=== PATIENT | male | born 1960 | race Caucasian/White ===

== ENCOUNTER 2018-05-14 08:28 | Outpatient (REF) | payer OTHER, SELFPAY ==
[2018-05-14 13:52] LABS: Cholesterol 178 mg/dL (50-200); HDL Cholesterol 32 mg/dL (40-60); LDL CHOLESTEROL 126 mg/dL (<100); Triglyceride 121 mg/dL (30-150)
== END 2018-05-14 08:48 ==
LOC: NCHCN 08:28
PROVIDERS: PCP Nurse Practitioner Family; Visit Provider Nurse Practitioner Family
DX: E78.5 Hyperlipidemia, unspecified (principal)
CPT/HCPCS: 80061; 83721

== ENCOUNTER 2018-12-01 11:56 | Outpatient (REF) | payer OTHER, SELFPAY ==
[2018-12-01 13:33] LABS: HGB 15.6 g/dL (13.5-17.5); Mean Corp. HGB Concentration 33.2 g/dL (32.0-36.0); Mean Corpuscular Volume 93.4 fL (80-95); Mean Platelet Volume 10.5 fL (8.0-11.0); Platelet Count 213 x1000/uL (130-400); RBC 5.03 m/cumm (4.50-6.00); RBC Distribution Width 13.1 % (11.8-14.1); White Blood Cell Count 8.25 k/cumm (4.4-10.8)
[2018-12-01 13:42] LABS: Anion Gap 12.6 mmol/L (3-11); BUN 13 mg/dL (7-18); CO2 24.4 mmol/L (21.0-32.0); CREATININE 0.78 mg/dL (0.70-1.30); Calcium 9.1 mg/dL (8.5-10.1); Chloride 105 mmol/L (98-107); Glucose 91 mg/dL (70-100); Potassium 4.3 mmol/L (3.5-5.1); Sodium 142 mmol/L (136-145)
== END 2018-12-01 12:16 ==
LOC: NCHCN 11:56
PROVIDERS: PCP Nurse Practitioner Family; Visit Provider Family Medicine
DX: I10 Essential (primary) hypertension (principal); K62.5 Hemorrhage of anus and rectum
CPT/HCPCS: 80048; 85027

== ENCOUNTER 2019-07-11 16:45 | Outpatient (REF) | payer OTHER, SELFPAY ==
[2019-07-11 17:07] LABS: Calculated LDL 56 mg/dL (<100); Cholesterol 119 mg/dL (<200); Glucose 101 mg/dL (74-106); HDL Cholesterol 40 mg/dL (40-60); Triglyceride 115 mg/dL (<150)
[2019-07-13 10:22] LABS: PSA, Screening 0.4 ng/mL (0.0-3.5)
== END 2019-07-11 17:05 ==
LOC: NCHCN 16:45
PROVIDERS: PCP Nurse Practitioner Family; Visit Provider Family Medicine
DX: Z00.00 Encounter for general adult medical examination without abnormal findings (principal); Z13.1 Encounter for screening for diabetes mellitus; Z13.220 Encounter for screening for lipoid disorders; Z12.5 Encounter for screening for malignant neoplasm of prostate
CPT/HCPCS: 80061; 82947; 84153

== ENCOUNTER 2020-07-13 09:26 | Outpatient (REF) | payer OTHER, SELFPAY ==
--- OUTSIDE RECORDS SUMMARY | 2020-07-13 09:30 | XMS_ITS ---
:1960 Author Care Team Providers Name Role Phone DR. ROSALES BAUMANN Primary Care Provider [phone] DR. ROSALES BAUMANN Referring Provider [phone] ROSALES BAUMANN Primary Care Provider [phone] Allergies Code Code System Name Reaction Severity Status Onset NKDA ? Notes: SEASONAL Medications Name Status Start Date Stop Date ? ? Anusol-HC 2.5 % topical cream with perineal applicator Completed ? 12/07/2018 APPLY A THIN LAYER TO THE AFFECTED AREA(S) BY TOPICAL ROUTE 2-4 TIMESDAILY Aspir-81 mg tablet,delayed release Completed ? 12/07/2018 Take 1 tablet every day by oral route. atorvastatin 20 mg tablet Active ? Not av ailable Take 1 tablet every day by oral route. Fish Oil Active ? Not available ONCE DAILY losartan 25 mg tablet Completed ? 12/07/2018 Take 1 tablet every day by oral route. losartan 50 mg tablet Active ? Not availa ble Take 1 tablet every day by oral route. Metamucil Active ? Not available Take 1 capsule twice a day NyQuil Active ? Not available NIGHTLY ProAir HFA 90 mcg/actuation aerosol inhaler Completed ? 12/07/2018 Inhale 2 puffs every 4 hours by inhalation route as needed. Problems Name Status Onset Date Source ? Tubular Adenoma Active 07/16/2018 ? Hyperlipidemia Active 07/16/2018 ? Alcohol Abuse Active 07/16/2018 ? Obstructive Sleep Apnea Syndrome Active 07/16/2018 ? Hypertensive Disorder Active 07/16/2018 ? Left Inguinal Hernia Active 07/16/2018 ? Diverticular Disease Active 07/16/2018 ? Heart Murmur Active 07/16/2018 ? Cough Active 07/16/2018 ? Lung Mass Active 07/16/2018 ? Transfusion of Blood Product Active 07/16/2018 ? Procedures Date Name Performed by ? ? Appendectomy Information not avai lable ? Wrist Surgery Information not avai lable Notes: left ? Colonoscopy Information not avai lable Notes: right elbow repair from a brake as a child Results Lab Results None recorded. Past Encounters None recorded. Social History Tobacco Smoking Status Former Smoker Notes: 40 days ago 12/07/18 Vaccine List None recorded. Plan of Care Reminders Provider Appointments None ? ? recorded. Lab None ? ? recorded. Referral None ? ? recorded. Procedures None ? ? recorded. Surgeries None ? ? recorded. Imaging None ? ? recorded. Vitals 12/07/2018 03:25PM General Surgery F/U 20 min Height Weight BMI Blood Pressure 171.45 cm 102.74 kg 35 kg/m2 124/50 mm[Hg] 10/28/2018 08:20AM General Surgery F/U 20 min Height Blood Pressure 171.45 cm 142/48 mm[Hg] 09/28/2018 01:25PM General Surgery F/U 20 min Height Blood Pressure 171.45 cm 156/52 mm[Hg] 09/14/2018 02:05PM General Surgery F/U 20 min Height Blood Pressure 171.45 cm 142/48 mm[Hg] 07/19/2018 01:45PM CONSULT Height Weight BMI Blood Pressure 171.45 cm 104.1 kg 35.4 kg/m2 130/50 mm[Hg]
--- OUTSIDE RECORDS SUMMARY | 2020-07-13 09:30 | XMS_ITS ---
:1960 Author Care Team Providers Name Role Phone [facility] OTHER [phone] ULISES SINGH MD ([facility]) Primary Care Provider [phone] Allergies Code Code System Name Reaction Severity Status Onset NKDA ? Medications Name Status Start Date Stop Date ? ? Aspir-81 Completed ? 01/31/2019 1 tablet daily atorvastatin 20 mg tablet Active ? Not av ailable Take 1 tablet every day by oral route. Fish Oil Active ? Not available 1 tab daily losartan 25 mg tablet Completed ? 01/31/2019 Take 0.5 tablets every day by oral route. losartan 50 mg tablet Active ? Not availa ble Take 1 tablet every day by oral route. Metamucil Active ? Not available capsule- BID NyQuil Completed ? 01/31/2019 Problems Name Status Onset Date Source ? Hyperlipidemia Active ? ? Obstructive Sleep Apnea Syndrome Active ? History Hypertensive Disorder Active ? ? Hemorrhoids Active ? ? Sleep Disorder Active ? History Chest Pain Active ? ? History of Alcohol Abuse Active ? ? History of Smoking Active ? ? Procedures None recorded. Results Lab Results None recorded. Past Encounters 02/20/2020 Obstructive Sleep Apnea Syndrome Laurie Hurley POSTAL SUPERVISOR: [address], [place] [address], Ph. 01/31/2019 Obstructive Sleep Apnea Syndrome Laurie Hurley POSTAL SUPERVISOR: [address] [place] [address], Ph. Social History Tobacco Smoking Status Current Every Day Smoker Notes: mi d 20's, 12 ppd Vaccine List None recorded. Plan of Care Reminders Provider Appointments None ? ? recorded. Lab None ? ? recorded. Referral None ? ? recorded. Procedures None ? ? recorded. Surgeries None ? ? recorded. Imaging None ? ? recorded. Vitals 02/20/2020 11:00AM Office 30 Height Weight BMI Blood Pressure 170.18 cm 99.84 kg 34.5 kg/m2 146/65 mm[Hg] 01/31/2019 03:30PM Office 30 Height Weight BMI Blood Pressure 170.18 cm 100.24 kg 34.6 kg/m2 156/58 mm[Hg] 11/30/2017 11:15AM Office 15 Height Weight BMI Blood Pressure 170.18 cm 101.6 kg 35.1 kg/m2 141/62 mm[Hg] 11/13/2016 Height Weight Blood Pressure 170.18 cm 102.74 kg 124/60 mm[Hg] 10/16/2016 Height Weight Blood Pressure 170.18 cm 104.89 kg 122/66 mm[Hg] 10/11/2015 Height Weight Blood Pressure 170.18 cm 103.62 kg 125/70 mm[Hg] 07/31/2015 Height Weight Blood Pressure 170.18 cm 102.09 kg 129/71 mm[Hg] 06/20/2015 Height Weight Blood Pressure 170.18 cm 93.19 kg 122/76 mm[Hg]
[2020-07-13 16:07] LABS: Anion Gap 11.4 mmol/L (3-11); BUN 12 mg/dL (7-18); CO2 26.6 mmol/L (21.0-32.0); CREATININE 0.9 mg/dL (0.70-1.30); Calcium 9.3 mg/dL (8.5-10.1); Chloride 106 mmol/L (98-107); Glucose 103 mg/dL (74-106); Potassium 4.6 mmol/L (3.5-5.1); Sodium 144 mmol/L (136-145)
[2020-07-13 22:35] LABS: PSA, Screening 0.4 ng/mL (0.0-3.5)
== END 2020-07-13 09:27 | disposition home or self-care (01) ==
LOC: NCHCN 09:26
PROVIDERS: PCP Family Medicine; Visit Provider Family Medicine
DX: Z00.00 Encounter for general adult medical examination without abnormal findings (principal); I10 Essential (primary) hypertension; Z12.5 Encounter for screening for malignant neoplasm of prostate
CPT/HCPCS: 80048; 84153

== ENCOUNTER 2020-10-01 16:20 | Observation (INO) | payer OTHER, SELFPAY ==
[2020-10-01] VITALS (73 sets, daily range): BP systolic 124–163; BP diastolic 25–95; PULSE 41–75; RESP 12–22; TEMP 36.2–36.7; O2SAT 75–98
--- NOTE | 2020-10-01 16:15 | RT.EKG_ITS ---
APPROVED REPORT Exam: Resting ECG Reason for Exam: DIZZINESS Patient Location: E HR:49 bpm ECG Measurements Heart Rate 49 AXIS IL 204 P 113 QRSd 123 QRS 9 QT 466 T 159 QTc 423 Conclusion Sinus bradycardia...rate< 60 LVH with secondary repolarization abnormality...multi-LVH criteria, abnrm ST-T
--- NOTE | 2020-10-01 16:30 | DI.CT_ITS ---
Exam(s) CT HEAD WO EXAM: CT HEAD WO CLINICAL HISTORY: dizzy, nauseated. TECHNIQUE: Imaging Protocol: Axial computed tomography images with coronal and sagittal reformatted images were created and reviewed COMPARISON: No exams were available for comparison FINDINGS: Ventricles and Extra axial spaces: Normal in size and morphology for the patient's age. Hemorrhage: None. Cerebral parenchyma: Normal. Midline shift: None. Brainstem/Cerebellum: Normal. Calvarium: Normal. Visualized Paranasal sinuses: Minimal ethmoid mucosal thickening. /Mastoids: Clear. Soft Tissues: Unremarkable. IMPRESSION: No acute intracranial process. RADIATION DOSE DELIVERED: 841.66mGy.cm Total DLP DATA REPOSITORY: All CT scans at this facility are submitted to the National Radiology Data Registry (NRDR) Dose Index Registry (DIR) with the [employer] (ACR). RADIATION OPTIMIZATION: All CT scans at this facility use at least one of these dose optimization te chniques: automated exposure control; mA and/or kV adjustment per patient size (includes targeted exa ms where dose is matched to clinical indication); or iterative reconstruction.
--- NOTE | 2020-10-01 16:30 | DI.RAD_ITS ---
Exam(s) XR CHEST 2V PA LATERAL EXAM: XR CHEST 2V PA LATERAL CLINICAL HISTORY: nausea, dizzy TECHNIQUE: 2D digital imaging was performed. COMPARISON: No exams were available for comparison FINDINGS: The heart is moderately enlarged. The aorta is tortuous. The lungs are clear. No pneumothorax. IMPRESSION: Cardiomegaly. No acute pulmonary findings. DATA REPOSITORY: RADIATION DOSE DELIVERED:
--- NOTE | 2020-10-01 16:46 | ED.GENADUL_ITS ---
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 He abruptly became diaphoretic and nauseated with sensation of lightheadedness as if he was going to pass out. She knew worse as he tried to walk after descending ladder. He did not have syncope or vomiting. He rested w ith some mild improvement. Denies vertiginous symptoms and does not have a headache. Patient arrives with a pulse of 49, pressure 141/58, otherwise unremarkable vital signs. He has decreased standing systolic ejection murmur. His EKG reveals a sinus bradycardia with a heart rate of 49 and nonspecific T wave inversions in leads I, aVL, lateral. Differential diagnosis includes myocardial ischemia, dysrhythmia, and must exclude more unusual diagnoses such as Lyme carditis. Labs reassuring with a normal troponin and D-dimer adjusted for age that is within normal limits. CK is 221. Chest x-ray reviewed with no acute pulmonary disease. CT head unremarkable. Patient observed on reel operator and repeat troponin obtained and negative. Given the patient's near syncope and noted bradycardia in the 40s, I will offer admission for further observation. Lab Data Lab results reviewed: Yes I reviewed the patient's lab results. Labs: Laboratory Results - last 24 hr 10/01/20 10/01/20 10/01/20 16:30 16:30 16:44 WBC 11.63 H RBC 5.11 Hgb 15.8 Hct 46.5 MCV 91.0 MCH 30.9 MCHC 34.0 RDW 11.9 Plt Count 222 MPV 9.6 Immature Gran % 0.3 Neutrophils % 50.0 Lymphocytes % 38.3 Monocytes % 7.8 Eosinophils % 2.8 Basophils % 0.8 Nucleated RBC % 0 Absolute Neutrophils 5.82 Absolute Lymphocytes 4.45 H Absolute Monocytes 0.91 H Absolute Eosinophils 0.33 Absolute Basophils 0.09 D-Dimer 545 H Sodium 144 Potassium 3.5 Chloride 107 Carbon Dioxide 27.9 Anion Gap 9.1 BUN 13 Creatinine 0.8 Estimated GFR/1.73 m2 >= 60.00 Glucose 108 H Calcium 8.7 Magnesium 1.9 Total Bilirubin 0.5 AST 20 ALT 27 Alkaline Phosphatase 77 Creatine Kinase 221 Troponin I < 0.05 Total Protein 7.6 Albumin 3.8 HPI General Mode of arrival: ambulatory . Date/Time Provider Initiated Documentation: 10/01/20 16:22 . Limitations to Documentation: no limitations . Information obtained by: patient . History of Present Illness 60 year old M presents to the emergency department with the chief complaint of Dizziness and nausea, described as moderate, Quality is described as dull and constant, Patient reports no radiation. Patient started experiencing this minute(s) and it has been constant. No relieving factors improve symptom(s), No exacerbating factors reported . Patient notes loss of appetite and weakness; denies chest pain, headaches, shortness of breath and syncope. Patient did receive the following treatments prior to arrival, none Related Data Home Medications Medication Instructions Recorded Confirmed albuterol sulfate [Proair Hfa] 2 puff INHALATION Q4H PRN inhaler 05/23/15 05/28/15 omega-3 fatty acids [Fish Oil] 500 mg PO DAILY 05/23/15 10/01/20 atorvastatin 20 mg PO DAILY 10/01/20 10/01/20 losartan 50 mg PO DAILY 10/01/20 10/01/20 Allergies Allergy/AdvReac Type Severity Reaction Status Date / Time No Known Allergies Allergy Unverified 10/01/20 16:34 General Stated Complaint: Dizzy/Sync ISHA: 2 Review of Systems Narrative: 6 systems reviewed and otherwise negative. No syncope, no vertiginous symptoms. Denies chest pain or shortness of breath. Takes losartan and a statin. No beta blockade or calcium channel kadi. Denies recent illness. [facility] Social History Smoking/Tobacco Use Status: Current every day Smoking risk assessment performed?: Yes Alcohol Intake: current Alcohol Intake frequency: a few times a week Drug use: Never Substance use type: does not use Do you feel safe at home: Yes Do you feel safe in your relationship?: Yes Exam Narrative Exam Narrative: GEN: awake, alert, oriented 3. Pleasant, well groomed, interactive. HEAD: Normocephalic, atraumatic ENT: Mucous membranes moist, oropharynx unremarkable, External ear exam unremarkable EYES: PERRL, EOMI NECK: Full ROM, no ANITA, no menigismus CHEST/RESP: Nontender, clear to auscultation bilateral, no wheeze/rhonchi/rales CARDIOVASCULAR: Regular and bradycardic, 2 out of 6 to 3 out of 6 systolic ejection murmur, no kathy. 2+ Rad pulse bilateral ABDOMEN: Soft, nontender, no mass. +Bowel sounds EXT: Full ROM, no edema, no rash Neuro: Grossly normal neurologic exam, conversant, interactive. Cranial nerves II through XII intact. Psych: Speech fluent, thoughts congruent, affect normal Course Vital Signs Vital signs: Vital Signs Temperature 36.7 C 10/01/20 16:30 Pulse 49 L 10/01/20 16:30 Respiratory Rate 18 10/01/20 16:30 Blood Pressure 141/58 H 10/01/20 16:30 Pulse Oximetry 93 10/01/20 16:30 Temperature 36.7 C 10/01/20 16:30 Temperature Source Temporal Artery Scan 10/01/20 16:30 Pulse 49 L 10/01/20 16:43 Respiratory Rate 18 10/01/20 16:30 Respiratory Effort 10/01/20 16:38 Blood Pressure 141/58 H 10/01/20 16:43 Blood Pressure Position Supine 10/01/20 16:30 Pulse Oximetry 93 10/01/20 16:30 Oxygen Delivery Method Room Air 10/01/20 16:30 Oxygen Flow Rate 0 10/01/20 16:30 Pain Level 0 10/01/20 16:30
[2020-10-01] MEDS: Ondansetron 4 MG/2 ML VIAL IVP (16:51)
[2020-10-01] MEDS: Normal Saline 1,000 ML 1000 ML IV (16:51)
[2020-10-01 16:53] LABS: Abs Immature Grans 0.03 10^3/uL (0.0-0.06); Absolute Basophil Count 0.09 10^3/uL (0.0-0.2); Absolute Eosinophil Count 0.33 10^3/uL (0.0-0.7); Absolute Lymphocyte Count 4.45 10^3/uL (1.2-3.4); Absolute Monocyte Count 0.91 10^3/uL (0.1-0.8); Absolute Neutrophil Count 5.82 10^3/uL (1.2-6.7); Basophils % 0.8; Eosinophils % 2.8; HCT 46.5 % (40.0-50.0); HGB 15.8 g/dL (13.5-17.5); Immature Grans % 0.3; Lymphocytes % 38.3; MCH 30.9 pg (27.0-33.0); MPV 9.6 fL (8.0-11.0); Monocytes % 7.8; Nucleated RBC 0 %; Platelet Count 222 10^3/uL (130-400); RBC 5.11 10^6/uL (4.36-5.78); RDW 11.9 % (11.8-14.1); RDW-SD 39.9 fL; WBC 11.63 10^3/uL (4.4-10.8)
[2020-10-01 17:08] LABS: ALT 27 U/L (16-63); AST 20 U/L (15-37); Albumin 3.8 g/dL (3.4-5.0); Alkaline Phosphatase 77 U/L (46-116); Anion Gap 9.1 mmol/L (3-11); BUN 13 mg/dL (7-18); Bilirubin, Total 0.5 mg/dL (0.2-1.0); CO2 27.9 mmol/L (21.0-32.0); CREATININE 0.8 mg/dL (0.70-1.30); Calcium 8.7 mg/dL (8.5-10.1); Chloride 107 mmol/L (98-107); Creatine Kinase 221 U/L (39-308); Glucose 108 mg/dL (74-106); Magnesium 1.9 mg/dL (1.8-2.4); Potassium 3.5 mmol/L (3.5-5.1); Sodium 144 mmol/L (136-145); Total Protein 7.6 g/dL (6.4-8.2); Troponin I < 0.05 ng/mL (<0.06)
--- NOTE | 2020-10-01 17:48 | DI.VRAD_ITS ---
PROCEDURE INFORMATION: Exam: CT Head Without Contrast Exam date and time: 10/01/2020 5:20 PM Age: 60 years old Clinical indication: Dizziness; Patient HX: Dizzy, nauseated; Dizzy at work near fainting TECHNIQUE: Imaging protocol: Computed tomography of the head without contrast. COMPARISON: No relevant prior studies available. FINDINGS: Brain: No intracranial hemorrhage. No mass or midline shift. No extra-axial collections. Normal rivas-white differentiation. No large acute territorial infarct. No cerebral edema. Cerebral ventricles: The ventricles are normal in position. No hydrocephalus. Bones/joints: No acute fracture. No focal osseous lesions. Paranasal sinuses: Scant mucosal thickening in the ethmoid sinuses. No air-fluid levels. Mastoid air cells: The tympanomastoid air cells are normally aerated as visualized. Orbital cavity: The orbits are unremarkable as visualized. Vasculature: Intracranial arterial calcification is present. Soft tissues: The soft tissues are unremarkable. IMPRESSION: 1. No acute intracranial findings. 2. Additional incidental/nonemergent findings as discussed above. Dictated and Authenticated by: Shanice Roa MD. Ordering:CINDY Mak MD
[2020-10-01 18:06] LABS: D-Dimer 545 ng/mlFEU (<500)
--- NOTE | 2020-10-01 18:13 | DI.VRAD_ITS ---
PROCEDURE INFORMATION: Exam: XR Chest Exam date and time: 10/01/2020 4:46 PM Age: 60 years old Clinical indication: Other: Nausea, dizzy TECHNIQUE: Imaging protocol: XR of the chest. Views: 2 views. COMPARISON: CT CHEST FOR PULMONARY EMBOLUS 05/17/2015 8:15 AM FINDINGS: Lungs: There are no pulmonary infiltrates or lung nodules. Pleural spaces: There is no evidence of pleural effusion or pneumothorax. Heart/Mediastinum: [id number] cardiomegaly. Vasculature: Tortuous calcified thoracic aorta. Bones/joints: No acute osseous findings. IMPRESSION: Cardiomegaly. No acute pulmonary disease. Resolution RIGHT pleural effusion and bilateral lower lobe parenchymal consolidation. Dictated and Authenticated by: Shanice Roa MD. Ordering:CINDY Mak MD
[2020-10-01 18:55] LABS: Source Nasal/Nares
[2020-10-01] MEDS: Aspirin 325 MG TAB PO (19:53)
[2020-10-01 20:08] LABS: Troponin I 0.05 ng/mL (<0.06)
--- NOTE | 2020-10-01 20:33 | NUR.NOTE ---
Nursing Note: Finger foods provided with MD permission.
[2020-10-01 21:03] LABS: COVID-19 PCR Negative (Negative)
--- NOTE | 2020-10-01 22:02 | W.PM.HP.N ---
Date of service: 10/01/20 Time of Service: 22:03 Assessment and Plan Assessment and plan (1) Near syncope: Status: Acute (2) Bradycardia: Status: Acute Assessment and plan: He will be placed on cardiac monitoring through the night. I have asked for a cardiology consult but not sure if cardiology will be here tomorrow. (3) Abnormal ECG: Status: Acute Assessment and plan: His electrocardiogram shows nonspecific ST-T wave changes which are new since 2008. This electrocardiogram should be repeated tomorrow morning. (4) Heart murmur: Status: Acute Assessment and plan: His heart murmur is quite prominent. Is difficult to say if this murmur is louder than it was a few years ago when he had his last echocardiogram. It may be worth considering repeating this echocardiogram in light of his bradycardia and the abnormal electrocardiogram. History of Present Illness History of Present Illness Chief Complaint: dizziness Narrative: This 60-year-old male came to the emergency department because of dizziness. He was at work earlier today and was on top of a ladder. 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 When he got to the bottom of the ladder he felt quite lightheaded with some nausea. There was no vertigo. He says he felt like he was staggering and thought he might pass out or fall. There was no vertigo. He has had no symptoms like this in the past. His symptoms lasted for about 30 minutes and he came here. He still had the symptoms when he got here but currently feels fine. He has had a history of a heart murmur since he was young and had an echocardiogram a few years ago. This showed mitral regurgitation and dilated left ventricle but no other abnormalities. He has not had any known recent tick bites however yesterday his did pull 1 off of him but it was not embedded. He had electrocardiogram in 2008 and today's electrocardiogram looks a bit different. He has not had any chest pain or recent signs of illness. He has had some headache today but he thinks this is because he has not eaten much. Review of Systems Constitutional Constitutional: Denies body ache(s), Denies chills, Denies fever(s) and Reports headache(s) Eyes Eyes: Denies diplopia ENT Ears, Nose, Mouth, and Throat: Denies vertigo, Reports dizziness and Reports headache(s) Cardiovascular Cardiovascular: Denies chest pain, Denies irregular heart rhythm, Denies leg edema, Denies dyspnea and Reports slow heart rate Respiratory Respiratory: Denies cough and Denies dyspnea Gastrointestinal Gastrointestinal: Denies abdominal pain, Denies change in stool character, Reports nausea and Denies vomiting Genitourinary Genitourinary: Denies difficulty urinating and Denies urinary urgency Musculoskeletal Musculoskeletal: Denies arthralgias and Denies tingling Neurologic Neurologic: Denies vertigo, Reports dizziness, Reports headache(s), Denies lack of coordination and Denies tingling PFSH Social History Smoking/Tobacco Use Status: Current every day Smoking risk assessment performed?: Yes Alcohol Intake: current Alcohol Intake frequency: a few times a week Drug use: Never Substance use type: does not use Do you feel safe at home: Yes Do you feel safe in your relationship?: Yes Meds Allergies and Home Medications Allergies Allergy/AdvReac Type Severity Reaction Status Date / Time No Known Allergies Allergy Unverified 10/01/20 16:34 Home Medications Medication Instructions Recorded Confirmed Type albuterol sulfate [Proair Hfa] 2 puff INHALATION Q4H PRN inhaler 05/23/15 05/28/15 History omega-3 fatty acids [Fish Oil] 500 mg PO DAILY 05/23/15 10/01/20 History atorvastatin 20 mg PO DAILY 10/01/20 10/01/20 History losartan 50 mg PO DAILY 10/01/20 10/01/20 History Exam Const General: cooperative, healthy appearing, comfortable, no acute distress, well developed and not ill appearing Nutritional Appearance: overweight Orientation: alert, awake and oriented x3 HENMT Head: normal to inspection and atraumatic Ears: hearing grossly normal bilaterally Mouth: oral mucosae normal and tongue normal Eyes General: appearance normal, both eyes and all related structures Eyelids: eyelids normal Sclera: sclerae normal EOM: EOM intact bilaterally Neck Neck: normal visual inspection, no lymphadenopathy and nontender Resp Effort & Inspection: normal respiratory effort Auscultation: clear to auscultation bilaterally, no rales, no rhonchi and no wheezes Cardio Jugular venous pressure: no JVD Rate: bradycardic Rhythm: regular rhythm Heart Sounds: S1 normal, S2 normal and murmur (3/6 holosystolic murmur, quite prominent at the right upper sternal border.) systolic GI Inspection: normal to inspection and non-distended Palpation: no hepatosplenomegaly and nontender Skin General skin exam: no rashes or lesions noted Neuro General: patient alert, patient awake, patient oriented x3 and no focal motor deficits Speech: speech normal Extrem Right lower extremity: no edema Left lower extremity: no edema Results Labs Result diagrams: 10/01/20 16:30 10/01/20 16:44 Labs: Laboratory Results - last 24 hr 10/01/20 10/01/20 10/01/20 16:30 16:30 16:44 WBC 11.63 H RBC 5.11 Hgb 15.8 Hct 46.5 MCV 91.0 MCH 30.9 MCHC 34.0 RDW 11.9 Plt Count 222 MPV 9.6 Immature Gran % 0.3 Neutrophils % 50.0 Lymphocytes % 38.3 Monocytes % 7.8 Eosinophils % 2.8 Basophils % 0.8 Nucleated RBC % 0 Absolute Neutrophils 5.82 Absolute Lymphocytes 4.45 H Absolute Monocytes 0.91 H Absolute Eosinophils 0.33 Absolute Basophils 0.09 D-Dimer 545 H Sodium 144 Potassium 3.5 Chloride 107 Carbon Dioxide 27.9 Anion Gap 9.1 BUN 13 Creatinine 0.8 Estimated GFR/1.73 m2 >= 60.00 Glucose 108 H Calcium 8.7 Magnesium 1.9 Total Bilirubin 0.5 AST 20 ALT 27 Alkaline Phosphatase 77 Creatine Kinase 221 Troponin I < 0.05 Total Protein 7.6 Albumin 3.8 COVID-19 Source SARS-CoV-2 (PCR) 10/01/20 10/01/20 18:50 19:45 WBC RBC Hgb Hct MCV MCH MCHC RDW Plt Count MPV Immature Gran % Neutrophils % Lymphocytes % Monocytes % Eosinophils % Basophils % Nucleated RBC % Absolute Neutrophils Absolute Lymphocytes Absolute Monocytes Absolute Eosinophils Absolute Basophils D-Dimer Sodium Potassium Chloride Carbon Dioxide Anion Gap BUN Creatinine Estimated GFR/1.73 m2 Glucose Calcium Magnesium Total Bilirubin AST ALT Alkaline Phosphatase Creatine Kinase Troponin I 0.05 Total Protein Albumin COVID-19 Source Nasal/nares SARS-CoV-2 (PCR) Negative Last Vital Signs Temp 36.7 C 10/01/20 16:30 Pulse 49 L 10/01/20 20:31 Resp 17 10/01/20 20:31 BP 134/58 L 10/01/20 20:31 Pulse Ox 91 L 10/01/20 20:31 COVID-19 Screening Have you, or household traveled for leisure in last 14 days?: No Had IN PERSON contact w/suspected or confirmed C-19 person: No
--- NOTE | 2020-10-02 | DI.US_ITS ---
APPROVED REPORT EXAM: Comprehensive 2D, Doppler, and color-flow Echocardiogram Patient Location: In-Patient Room/Bed: [facility] Director Of Rehabilitation: Therese Ritter RDCS (AE) Indications: Syncope, Murmur Other Information Study Quality: Good Conclusion Left Ventricle : Left ventricle is moderately dilated. The left ventricular ejection fraction is with in the normal range. Moderate concentric left ventricular hypertrophy. There is normal LV segmental w all motion. The left ventricular diastolic function is normal. LVEF is 59%. Right Ventricle : The right ventricle is normal size. The right ventricular systolic function is norm al. The RVSP is 33.8mmHg. Atria : Left atrium is moderately dilated. The right atrium size is normal. Aortic Valve : Aortic valve is calcified. Number of aortic valve leaflets could not be assessed. Mode rate aortic regurgitation. Moderate aortic stenosis. Peak aortic valve gradient is 47.3mmHg. Highest mean aortic valve gradient is 27.3mmHg. Calculated FINA by the continuity equation is 1.69cm2. Mitral Valve : Mild mitral annular calcification. Mild mitral regurgitation. No evidence of mitral va lve stenosis. Great Vessels : The ascending aorta is dilated (4.7cm). Aortic arch is normal in caliber. Aortic root is dilated (4.3cm). Echocardiogram from 05/17/2015, the patient now has moderate aortic stenosis as well as moderate aortic regurgitation. The ascending aortic measurements are grossly unchanged as is ejection fraction. Pu lmonary artery pressure is now decreased from 53 mmHg to 34 mmHg. Wall motion Left Ventricle Left ventricle is moderately dilated. The left ventricular ejection fraction is within the normal ran ge. Moderate concentric left ventricular hypertrophy. There is normal LV segmental wall motion. The l eft ventricular diastolic function is normal. There is no ventricular septal defect visualized. LVEF is 59%. Right Ventricle The right ventricle is normal size. The right ventricular systolic function is normal. The RVSP is 33 .8mmHg. Atria Left atrium is moderately dilated. The right atrium size is normal. The interatrial septum is intact with no evidence for an atrial septal defect. Aortic Valve Aortic valve is calcified. Number of aortic valve leaflets could not be assessed. Moderate aortic jeremías nosis. Peak aortic valve gradient is 47.3mmHg. Highest mean aortic valve gradient is 27.3mmHg. Calcul ated FINA by the continuity equation is 1.69cm2. Moderate aortic regurgitation. Mitral Valve Mild mitral annular calcification. No evidence of mitral valve stenosis. Mild mitral regurgitation. Tricuspid Valve The tricuspid valve is normal in structure. There is no tricuspid valve stenosis. Trace to mild tricu spid regurgitation. Pulmonic Valve The pulmonary valve is normal in structure. There is no pulmonic valvular stenosis. Trace pulmonic re gurgitation. Great Vessels Aortic root is dilated (4.3cm). The ascending aorta is dilated (4.7cm). Aortic arch is normal in paul ruddy. IVC is normal in size and collapses >50% with inspiration. Pericardium There is no pericardial effusion. 2D Dimensions IVSD d PLAX 1.33 cm M: 0.6-1.2 LV Vol A2C d MOD 215.7 mL LVPW d PLAX 1.30 cm M: 0.6 - 1.2 LV Vol A4C d MOD 302.5 mL LVID d PLAX 7.00 cm M: 4.2 - 5.8 LA vol/ BSA A2C s A-L 43.0 mL/m2 LVDs 4.75 cm M: 2.5 - 4.0 LA vol/ BSA A4C s A-L 35.1 mL/m2 Ao Root d 4.35 cm M: 3.1 - 3.7 LA Vol/ BSA Biplane s A-L 39.2 mL/m2 RA Area A4C 18.52 cm2 LA Area A4C s MOD 23.04 cm2 RA Vol/ BSA A4C s A-L 25.0 mL/m2 LA Area A2C s MOD 25.28 cm2 Ao Asc Diam d 4.74 cm M: 2.6 - 3.4 LV EF A4C MOD 58.2 % LV EF Teichholz 58.3 % LV EF A2C MOD 59.8 % LVEF (Ramirez's) 59.49 % M: 52 - 72 LV EF Biplane MOD 59.5 % LV Volume 193.08 mL M: 62 - 150 SV 155.25 mL LV Volume Index 92.82 mL/m2 M: 34 - 74 SV Index 74.46 mL/m2 LV Vol Biplane MOD 261.0 mL FS 31.70 % M-Mode TAPSE 3.10 cm (M/F) >1.7 LV Diastology MV E' medial 0.076 (>0.07 m/s) E/A Ratio 1.2 LV E/e MED 10.60 (<14) MV E Vmax 0.81 (0.4-1.3 m/s) MV E' lateral 0.072 (>0.1 m/s) MV A Vmax 0.65 (0.4-1.3 m/s) LV E/e LAT 11.15 (<14) MV E/A Ratio 1.18 MV E/E' medial 10.65 MV E/E' lateral 11.19 Aortic Valve LVOT Area 4.83 cm2 AoV Area Vmax 1.69 cm2 LVOT Vmax 1.21 m/s AoV Area/ BSA (Vmax) 0.81 cm2/m2 LVOT Mean Bret. 0.82 m/s FINA Mean Bret. 1.60 cm2 LVOT Peak Grad 5.8 mmHg FINA Mean Bret. Index 0.77 cm2/m2 LVOT Mean Grad 3.2 mmHg AR DT 1573 msec LVOT VTI 0.331 m AR PHT 456 msec LVOT Diam s 2.45 cm AoV Vmax 3.44 m/s Velocity Ratio 0.35 AoV Mean Bret. 2.48 m/s AoV Peak Grad 47.3 mmHg LVOT SV 159.78 mL AoV Mean Grad 27.3 mmHg AoV VTI 0.813 m AoV Area VTI 1.96 cm2 AoV Area/ BSA (VTI) 0.94 cm/m2 Mitral Valve MV DT 254 (160-240 msec) MV PHT 74 msec MV Area PHT 2.99 cm2 MV VTI 0.267 m MV Area VTI 5.98 (4.0-6.0 cm2) Pulmonary Valve PV Vmax 0.95 (0.5-1.5 m/s) RVOT Peak Gr. 2.39 mmHg PV Peak Grad 3.6 mmHg RVOT Mean Gr. 1.15 mmHg PV Mean Grad 1.9 mmHg RVOT VTI 0.167 m PV VTI 0.224 m RVOT Vmax 0.77 m/s Tricuspid Valve TR Peak Grad 30.7 mmHg TR Vmax 2.77 m/s RA Pressure 3.00 mmHg RVSP (TR) 33.8 mmHg
[2020-10-02 01:13] VITALS: BP 126/64; PULSE 41; RESP 18; TEMP 36.7; O2SAT 96
[2020-10-02 03:18] VITALS: BP 150/72; PULSE 43; RESP 17; TEMP 36.7; O2SAT 95
[2020-10-02 07:00] VITALS: PULSE 45
[2020-10-02 07:25] VITALS: BP 135/78; PULSE 52; RESP 16; TEMP 36.7; O2SAT 95
--- NOTE | 2020-10-02 07:45 | RT.EKG_ITS ---
APPROVED REPORT Exam: Resting ECG Reason for Exam: near syncope, EKG changes Patient Location: I HR:46 bpm ECG Measurements Heart Rate 46 AXIS LA 204 P 48 QRSd 119 QRS -6 QT 439 T 234 QTc 385 Conclusion Sinus bradycardia...rate< 60 LVH with secondary repolarization abnormality...multi-LVH criteria, abnrm ST-T
[2020-10-02] MEDS: Omega-3 Fatty Acids 1000 MG CAP PO (07:57)
--- NOTE | 2020-10-02 09:23 | INITIAL_ITS ---
- If Service Date Differs Date of service: 10/02/20 Time of Service: 09:23 Care Management Initial Assess REASON FOR HOSPITALIZATION:: Near syncope PAST MEDICAL HISTORY/PAST SURGICAL HISTORY:: None documented PREVIOUS FUNCTIONAL STATUS/SOCIAL/FAMILY SUPPORTS:: Conner lives in [place], [place] with his Korina. They have 2 adult children who no longer live at home. 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 CURRENT FUNCTIONAL STATUS:: Conner was sitting up in bed when CM met with him. He verbalized wanting to go home and get some rest. He alluded to the fact that sleep is hard to come by in the hospital. Conner stated that he feels fine and does not want or need any services at home. ADVANCE DIRECTIVES:: none on file. Conner would be interested he stated but his does not want to complete ADs. Has patient been provided with info about the portal/API?: Yes Did the patient sign up for the portal?: No CODE STATUS:: Full Code INSURANCE COVERAGE / FINANCIAL ISSUES:: [facility] CURRENT HOME/COMMUNITY SERVICES/EQUIPMENT:: none PRIMARY CARE PHYSICIAN:: Tono Montero POTENTIAL DISCHARGE NEEDS:: Follow up with PCP and plan of care PATIENT/FAMILY EDUCATION NEEDS:: Review of discharge instructions, medications, folllow up plan, limitations and Ask Me Three TRANSPORTATION:: via private vehicle with family PLAN:: Conner will be discharged home with no new services. He will follow up with Cardiology, his PCP and plan of care and transport with family.
[2020-10-02 11:28] VITALS: BP 135/62; PULSE 48; RESP 15; TEMP 37.2; O2SAT 95
--- NOTE | 2020-10-02 13:22 | W.PM.DS.N ---
Date of service: 10/02/20 Time of Service: 13:22 DS: Diagnosis Discharge Diagnosis (1) Near syncope: Status: Acute (2) Bradycardia: Status: Acute (3) Abnormal ECG: Status: Acute (4) Heart murmur: Status: Acute Discharge Plan Disposition Patient Disposition: HOME Condition: Improving Discharge Details Reason For Visit: near syncope,bradycardia Admit Date/Time: 10/01/20 21:36 Admit Provider: Tono Guerra Attending Provider: Tono Guerra Primary Care Provider: Tono Montero [facility] Course: This 60-year-old male came to the emergency department because of dizziness.? He was at work earlier today and was on top of a ladder.? 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 When he got to the bottom of the ladder he felt quite lightheaded with some nausea.? There was no vertigo.? He says he felt like he was staggering and thought he might pass out or fall.? There was no vertigo.? He has had no symptoms like this in the past.? His symptoms lasted for about 30 minutes and he came here.? He still had the symptoms when he got here but currently feels fine.? He has had a history of a heart murmur since he was young and had an echocardiogram a few years ago.? This showed mitral regurgitation and dilated left ventricle but no other abnormalities.? He has not had any known recent tick bites however on the day before this admission his did pull 1 off of him but it was not embedded.? He had electrocardiogram in 2008.? He has not had any chest pain or recent signs of illness.? He has had some headache today but he thinks this is because he has not eaten much. His lab showed a WBC count of 11.63. Electrolytes and creatinine were normal. Glucose 108. His telemetry monitoring showed bradycardia at times into the upper 40's. HR at times into the low 60's. He had no symptoms of lightheadedness, near syncope, palpitations during this stay. His echocardiogram showed an EF of 59%, Mod aortic regurgitation and mod aortic stenosis. Mild mitral regurgitation. Also noted was a dilation of the ascending aorta (4.7cm) and dilated aortic root (4.3cm); the aortic measurements were grossly unchanged from 1/7/16. He will d/c on a cardiac event monitor. His symptoms could questionably have been d/t hypoglycemia. F/U with PCP in 1-2 weeks. He will be scheduled with a cardiology visit. Return to work on Thursday10/08/20. Home Meds and New Rx's Prescriptions: New omega 6-pzv-vnl-fish oil 1,000 mg (120 mg-180 mg) Capsule 1,000 mg PO HS Qty: 0 RF: 0 Continued albuterol sulfate [ProAir HFA] 8.5 GM HFA aerosol inhaler 2 puff Inhalation Q4H PRN RF: 0 Changed losartan 50 mg tablet 50 mg PO HS Qty: 0 RF: 0 atorvastatin 20 mg tablet 20 mg PO HS Qty: 0 RF: 0 Discontinued Fish Oil 500 MG capsule 500 mg PO DAILY RF: 0 Discharge Instructions Instructions: Bradycardia (DC) Activity:: Activity as Tolerated Equipment/Supplies:: No Equipment Needed Diet:: Heart Healthy Discharge Orders Discharge Orders: Discharge Order (Routine); Ordered 10/02/20 Ordered By: John Webb Other Ambulatory Orders: Cardiac Event Recorder (Routine) Timeframe: 1 Month Facility: [facility] - Location: Respiratory Therapy Ordered By: John Webb DS: Summary Time Spent with Patient providing and/or coordinating discharge services: Greater than 30 minutes Status at Discharge Functional status at discharge: independent ambulation Overall status at discharge: patient is back to baseline Mental Status: mental status grossly normal Speech and Movement: speech and movement normal Mood: congruent mood Affect: normal affect Exam Const General: cooperative and no acute distress Nutritional Appearance: obese Orientation: alert and oriented x3 Resp Effort & Inspection: normal respiratory effort Auscultation: clear to auscultation bilaterally Cardio Rate: bradycardic Rhythm: regular rhythm Heart Sounds: murmur Extrem General: no pedal edema and no calf tenderness Psych Appearance: grossly normal Mental Status: mental status grossly normal Speech and Movement: speech and movement normal Mood: congruent mood Affect: normal affect DS: Data Vitals/I&O Vitals and I&O: Vital Signs Temperature 37.2 C 10/02/20 11:28 Temperature Source Temporal Artery Scan 10/02/20 11:28 Pulse 48 L 10/02/20 11:28 Pulse 48 L 10/01/20 23:20 Respiratory Rate 15 10/02/20 11:28 Respiratory Effort Non-Labored 10/02/20 07:50 Respiratory Depth Normal 10/02/20 07:50 Respiratory Pattern Normal 10/02/20 07:50 Blood Pressure 135/62 10/02/20 11:28 Blood Pressure Mean 51 10/01/20 22:16 Blood Pressure Position Supine 10/01/20 16:30 Pulse Oximetry 95 10/02/20 11:28 Oxygen Delivery Method Room Air 10/02/20 11:28 Oxygen Flow Rate 0 10/02/20 11:28 Pain Level 0 10/02/20 11:28 Comment 10/02/20 01:13 Intake & Output 10/01/20 10/02/20 10/02/20 23:59 11:59 23:59 Intake Total 1000 / 1000 120 / 120 Balance 1000 / 1000 120 / 120 Weight 97.749 kg Intake: IV 1000 / 1000 Oral 120 / 120 Other: Urine Appearance Clear Clear Voiding Methods Toilet Data Completed and Pending Labs on day of discharge: Labs from last 24 hours 10/01/20 10/01/20 10/01/20 19:45 18:50 18:00 WBC RBC Hgb Hct MCV MCH MCHC RDW Plt Count MPV Immature Gran % Neutrophils % Lymphocytes % Monocytes % Eosinophils % Basophils % Nucleated RBC % Absolute Neutrophils Absolute Lymphocytes Absolute Monocytes Absolute Eosinophils Absolute Basophils D-Dimer Sodium Potassium Chloride Carbon Dioxide Anion Gap BUN Creatinine Estimated GFR/1.73 m2 Glucose Calcium Magnesium Total Bilirubin AST ALT Alkaline Phosphatase Creatine Kinase Troponin I 0.05 Total Protein Albumin Lyme Disease Antibody Pending COVID-19 Source Nasal/nares SARS-CoV-2 (PCR) Negative 10/01/20 10/01/20 10/01/20 16:44 16:30 16:30 WBC 11.63 H RBC 5.11 Hgb 15.8 Hct 46.5 MCV 91.0 MCH 30.9 MCHC 34.0 RDW 11.9 Plt Count 222 MPV 9.6 Immature Gran % 0.3 Neutrophils % 50.0 Lymphocytes % 38.3 Monocytes % 7.8 Eosinophils % 2.8 Basophils % 0.8 Nucleated RBC % 0 Absolute Neutrophils 5.82 Absolute Lymphocytes 4.45 H Absolute Monocytes 0.91 H Absolute Eosinophils 0.33 Absolute Basophils 0.09 D-Dimer 545 H Sodium 144 Potassium 3.5 Chloride 107 Carbon Dioxide 27.9 Anion Gap 9.1 BUN 13 Creatinine 0.8 Estimated GFR/1.73 m2 >= 60.00 Glucose 108 H Calcium 8.7 Magnesium 1.9 Total Bilirubin 0.5 AST 20 ALT 27 Alkaline Phosphatase 77 Creatine Kinase 221 Troponin I < 0.05 Total Protein 7.6 Albumin 3.8 Lyme Disease Antibody COVID-19 Source SARS-CoV-2 (PCR) [facility] Social History Smoking/Tobacco Use Status: Current every day Smoking risk assessment performed?: Yes Alcohol Intake: current Alcohol Intake frequency: a few times a week Drug use: Never Substance use type: does not use Do you feel safe at home: Yes Do you feel safe in your relationship?: Yes
[2020-10-02 14:22] LABS: Hemoglobin A1C 5.4 % (<5.7)
--- NOTE | 2020-10-02 17:37 | PDOC.CMDIS ---
- If Service Date Differs Date of service: 10/02/20 Time of Service: 17:37 LACE Index Scoring Tool - Questions: Length of Stay (in days): 1 Acuity (Admit via E.D.?): Yes E.D. Visits: 1 - Answers: Total Score: 5 Risk of Readmission: Low Risk Care Management Discharge Reason for Hospitalization: Near syncope Discharge Plan: Conner will be discharged home with no new services. He will follow up with Cardiology, his PCP and plan of care and transport with family. Patient/Family Education Needs: Review of discharge instructions, medications, folllow up plan, limitations and Ask Me Three
[2020-10-03 12:34] LABS: Lyme Ab w Rflx to Lyme Confirm Negative (Negative)
--- NOTE | 2020-11-02 10:34 | CER_ITS ---
Date of service: 11/02/20 Time of Service: 10:34 Cardiac Event Recorder Referring Provider:: Tono Montero Indications:: Bradycardia Cardiac Event Note: This is a 30-day cardiac event monitor, ordered for bradycardia. Predominant rhythm was sinus with an average heart rate of 59. Minimum was 36, maximum 108 Atrial and ventricular ectopic beats were noted There were several runs of nonsustained ventricular tachycardia, the longest of which was 8 beats in duration An episode labeled atrial fibrillation appeared to be sinus with premature atrial contractions, not atrial fibrillation. There were several brief self- limited atrial runs There were no apparent patient symptoms
== END 2020-10-02 14:48 | disposition home or self-care (01) ==
LOC: ER 21:57 → MS 22:24
PROVIDERS: Admitting Provider Family Medicine; Emergency Provider Emergency Medicine; PCP Family Medicine; Visit Provider Family Medicine
DX: R55 Syncope and collapse (principal); R00.1 Bradycardia, unspecified; R94.31 Abnormal electrocardiogram [ECG] [EKG]; R01.1 Cardiac murmur, unspecified; R42 Dizziness and giddiness; I08.0 Rheumatic disorders of both mitral and aortic valves; I77.810 Thoracic aortic ectasia; Z20.822 Contact with and (suspected) exposure to COVID-19; F17.210 Nicotine dependence, cigarettes, uncomplicated
CPT/HCPCS: 36415; 80053; 82550; 87635; 93005; 93270; 96361; 96374; 99285; 70450; 71046; 83036; 83735; 84484; 85025; 85379; 86618; 93010; 93306; 99217; 99219; G0378; J2405

== ENCOUNTER 2021-01-10 21:22 | Emergency (ER) | payer OTHER, SELFPAY ==
[2021-01-10] VITALS (16 sets, daily range): BP systolic 132–174; BP diastolic 64–77; PULSE 56–63; RESP 13–21; TEMP 36.6; O2SAT 92–97
--- NOTE | 2021-01-10 21:30 | RT.EKG_ITS ---
APPROVED REPORT Exam: Resting ECG Reason for Exam: Confusion Patient Location: E HR:61 bpm ECG Measurements Heart Rate 61 AXIS TX 194 P 0 QRSd 121 QRS -9 QT 426 T 163 QTc 429 Conclusion Sinus rhythm...normal P axis, V-rate 60- 99 Multiple ventricular premature complexes...V complexes w/ short R-R intervls LVH with secondary repolarization abnormality...multi-LVH criteria, abnrm ST-T I have reviewed and interpreted ECG and agree with software generated interpretation. There are no significant changes compared to prior EKG performed on 10/02/2020 at 10:18.
--- NOTE | 2021-01-10 21:30 | DI.CT_ITS ---
Exam(s) CT BRAIN NECK CTA EXAM: CT BRAIN NECK CTA CLINICAL HISTORY: Episode of confusion. TECHNIQUE: Imaging Protocol: Axial CT angiography was performed with multi-slice acquisition and mu lti-planar and/or 3D reconstructions. CONTRAST MATERIAL: Intravenous: Omnipaque 350 Contrast volume:structured data in ml COMPARISON: CT CHEST FOR PULMONARY EMBOLUS from 05/17/2015 FINDINGS: CT angiography of the cervical cranial region was performed according to the usual protocol with intr avenous infusion of 85 cc of Omnipaque 350.. Initial noncontrast scanning of the head is unremarkable except for incidental note made of presumed chronic left maxillary sinusitis. Visualized lung apices are clear. Visualized portions of thoracic aorta and pulmonary arterial circul ation are unremarkable. There is no evidence of a cervical mass or adenopathy. The tracheal laryngeal structures appear intact. The common, internal, and external carotid arteries are within normal limits in the cervical region w ith no evidence of aneurysm, stenosis, or dissection. The vertebral arteries are unremarkable in appearance in the cervical region with no evidence of aneu rysm, stenosis, or dissection. Intracranial portions of the internal carotid arteries appear normal with no evidence of aneurysm, st enosis, or dissection. Intracranial vertebral arteries and basilar artery appear normal with no evidence of aneurysm, stenos is or dissection. No aneurysm identified in the region of the [id number]. The anterior, middle, and posterior cer ebral arteries and major branches appear intact with no evidence of aneurysm, stenosis, or dissection . No enhancing brain lesion identified on 5 minutes delayed images.. IMPRESSION: Negative CT angiography of the cervical cranial region. RADIATION DOSE DELIVERED: 2,226.23mGy.cmTotal DLP 2,226.23mGy.cm Total DLP 47.13mGy CTDIvol DATA REPOSITORY: All CT scans at this facility are submitted to the National Radiology Data Registry (NRDR) Dose Index Registry (DIR) with the [employer] (A[employer]). RADIATION OPTIMIZATION: All CT scans at this facility use at least one of these dose optimization te chniques: automated exposure control; mA and/or kV adjustment per patient size (includes targeted exa ms where dose is matched to clinical indication); or iterative reconstruction.
--- NOTE | 2021-01-10 21:40 | W.ED.GENAD ---
Discharge Plan Disposition Patient Disposition: HOME Condition: Stable Discharge Details Clinical Impression: Acute confusion Primary Care Provider: Tono Montero ED Provider: Rachel Fontaine Home Meds and New Rx's Prescriptions: Continued losartan 50 mg tablet 100 mg PO HS RF: 0 aspirin [Adult Aspirin Regimen] 81 mg tablet,delayed release (DR/EC) 81 mg PO DAILY RF: 0 metoprolol succinate 25 mg tablet extended release 24 hr 25 mg PO .nightly Qty: 90 RF: 3 atorvastatin 20 mg tablet 20 mg PO HS Qty: 0 RF: 0 varenicline [Chantix] 1 mg tablet 1 mg PO BID RF: 0 Discharge Instructions Instructions: Acute Delirium (ED) Additional Instructions: At this time work-up is largely unremarkable. CT head and lab work showed no evidence for infection or any reason to cause her symptoms. I do suspect this could be from fatigue and dehydration. Follow up with primary care provider in 3-5 days. Return to ED sooner if any worsening or concerns. Increase oral fluids. Referrals: Tono Montero [Primary Care Provider] - 5 days Medical Decision Making 60-year-old male presents to the ER chief complaint of episode of confusion which has since resolved. Patient [place] staying in a camp and reported that he lost his train of thought and had forgotten what he had been doing for the last 3 hours. Denies any head injuries denies any headache no blurry vision or double vision. Denies any chest pain or shortness of breath. Patient does have a past medical history of heart murmur, bradycardia, nonsustained ventricular tachycardia, hyperlipidemia, hypertension and sleep apnea. He does endorse drinking 3 beers tonight and is a smoker. At this time cardiac work-up ordered including serial troponins, head CTA Brain and neck and urinalysis. EKG was reviewed by Dr. Cornelius Lindsay MD ER attending, please see his official report. Old EKG available for review. Labs are largely unremarkable initial troponin is less than 0.05. UDS is negative urinalysis shows no evidence for UTI ethyl alcohol less than 3.0. (IV); COMPARISON: CT HEAD WO 10/01/2020 5:22 PM FINDINGS: ANTERIOR CIRCULATION: Right internal carotid artery: Unremarkable. Intracranial segment is patent with no significant stenosis. No aneurysm. Right middle cerebral artery: Unremarkable. No occlusion or significant stenosis. No aneurysm. Right anterior cerebral artery: Unremarkable. No occlusion or significant stenosis. No aneurysm. Left internal carotid artery: Unremarkable. Intracranial segment is patent with no significant stenosis. No aneurysm. Left middle cerebral artery: Unremarkable. No occlusion or significant stenosis. No aneurysm. Left anterior cerebral artery: Unremarkable. No occlusion or significant stenosis. No aneurysm. POSTERIOR CIRCULATION: Right vertebral artery: Unremarkable. No occlusion or significant stenosis. No aneurysm. Left vertebral artery: Unremarkable. No occlusion or significant stenosis. No aneurysm. Basilar artery: Unremarkable. No occlusion or significant stenosis. No aneurysm. Right posterior cerebral artery: Unremarkable. No occlusion or significant stenosis. No aneurysm. Left posterior cerebral artery: Unremarkable. No occlusion or significant stenosis. No aneurysm. Veins: Visualized venous sinuses are patent with no evidence of thrombosis. The superior sagittal and inferior sagittal sinuses are unremarkable. Transverse sinuses and sagittal sinuses are unremarkable. Brain: No acute intracranial hemorrhage. Obrien/white matter differentiation is unremarkable. Cisterns are unremarkable. Brainstem is unremarkable. No suprasellar mass. Cerebral ventricles: No ventriculomegaly. Orbital cavity: Orbits are unremarkable. No orbital hematoma. No mass lesion. No proptosis. Oculomotor muscles and optic nerves are unremarkable. Orbital globes are intact. No evidence of globe rupture. Bones/joints: Unremarkable. No acute fracture. Soft tissues: No mass lesion. No mass effect. Thalamus and hypothalamus are unremarkable. Cerebellum is unremarkable. No areas of abnormal enhancement after contrast administration. Paranasal sinuses: Mild polypoid mucosal thickening in left maxillary sinus. No fluid level in the sinuses. Filling defect is seen in posterosuperior sagittal sinus on series 4, image 103 measuring 10 x 3 mm in axial dimension and 8 mm in craniocaudal dimension. Finding appears to represent artifact from adjacent confluence of veins. The finding does not appear to represent a venous sinus thrombosis. Mild polypoid mucosal thickening in left maxillary sinus.. No fluid levels in the sinuses. IMPRESSION: No evidence of vascular pathology. COMPARISON: CT HEAD WO 10/01/2020 5:22 PM ADDIS BRIDGES Preliminary Radiology Report FINDINGS: Right common carotid artery: No stenosis. No dissection or occlusion. Right internal carotid artery: No stenosis of the extracranial segment. No dissection or occlusion. Right external carotid artery: No occlusion or stenosis of the origin. Left common carotid artery: No stenosis. No dissection or occlusion. Left internal carotid artery: No stenosis of the extracranial segment. No dissection or occlusion. Left external carotid artery: No occlusion or stenosis of the origin. Right vertebral artery: No stenosis. No dissection or occlusion. Left vertebral artery: No stenosis. No dissection or occlusion. Soft tissues: Normal. No significant soft tissue swelling. Bones/joints: No acute fracture. IMPRESSION: No evidence of vascular stenosis by NASCET criteria Discussed CT results and lab results with patient and family. Patient discharged with instructions to follow-up with PCP. Discussed return instructions. Patient remained hemodynamically stable throughout stay. This text was generated using [employer] system, please disregard any oddities of phrase or misspellings. HPI General Mode of arrival: ambulatory. Date/Time Provider Initiated Documentation: 01/10/21 21:33. Limitations to Documentation: no limitations. Information obtained by: patient, family, RN notes reviewed and old records reviewed. HPI Narrative: 60-year-old male presents to the ER chief complaint of episode of confusion which has since resolved. Patient is staying in a camp and reported that he lost his train of thought and had forgotten what he had been doing for the last 3 hours. Denies any head injuries denies any headache no blurry vision or double vision. Denies any chest pain or shortness of breath. Patient does have a past medical history of heart murmur, bradycardia, nonsustained ventricular tachycardia, hyperlipidemia, hypertension and sleep apnea. He does endorse drinking 3 beers tonight and is a smoker. Related Data Home Medications Medication Instructions Recorded Confirmed atorvastatin 20 mg PO HS #0 tab 10/02/20 01/10/21 aspirin 81 mg tablet,delayed 81 mg PO DAILY 01/08/21 01/10/21 release losartan 50 mg tablet 100 mg PO HS tab 01/08/21 01/10/21 metoprolol succinate 25 mg 25 mg PO .nightly #90 tab 01/08/21 01/10/21 tablet,extended release 24 hr varenicline [Chantix] 1 mg PO BID 01/10/21 01/10/21 Previous Rx's Medication Instructions Recorded atorvastatin 20 mg PO HS #0 tab 10/02/20 metoprolol succinate 25 mg 25 mg PO .nightly #90 tab 01/08/21 tablet,extended release 24 hr Allergies Allergy/AdvReac Type Severity Reaction Status Date / Time No Known Allergies Allergy Verified 01/10/21 21:33 General Stated Complaint: GenMedical ISHA: 3 Review of Systems Narrative: Constitutional: Negative for weight loss, alert and oriented, well groomed, normal body habitus, appears comfortable. HEENT: Denies trauma, headaches, blurry vision, nasal discharge, sore throat, trouble swallowing. Chest: Denies chest pain, palpitations,. Respiratory: Denies Shortness of breath, cough, hemoptysis. GI: Denies abdominal pain, nausea, vomiting, diarrhea, constipation. : Denies dysuria, hematuria, flank pain, rectal bleeding. Neuro: Denies dizziness, blurry vision, weakness, syncope, headache or facial numbness. Positive episode of confusion and memory loss which has resolved. Hematologic: Denies easy bruising, intolerance to heat or cold, hair loss. 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 Appears stated age. Normal body habitus. Head: Normocephalic, no trauma. Eyes: Pupils PERRLA, Red reflex noted, EOM's intact. Eyelids symmetrical without lesions, discharge, or swelling. ENT: Bilateral TM's WNL, External ear normal to inspection, no mastoid TTP, swelling, or erythema, Nasal turbinates WNL, no nasal discharge. Normal dentition, Posterior pharynx WNL, no exudate. Chest: RRR, Normal S1, S2, distal pulses intact. Positive murmur auscultated. Resp: Lungs clear to auscultation bilaterally, no wheezes, rales, or rhonchi. Musculoskeletal: Normal gait, 5/5 strength to all four extremities. Skin: No suspicious rashes or lesions. Capillary refill less than 2 sec. Neurologic: Cranial nerves II-XII intact. Alert and oriented x 3. No facial droop, no focal neuro deficits. No pronator drift. Hematologic/Lymphatic: No ecchymosis, no lymphadenopathy. Course Vital Signs Vital signs: Vital Signs Temperature 36.6 C 01/10/21 21:28 Pulse 60 01/10/21 21:28 Respiratory Rate 16 01/10/21 21:28 Blood Pressure 174/65 H 01/10/21 21:28 Pulse Oximetry 96 01/10/21 21:28 Temperature 36.6 C 01/10/21 21:28 Temperature Source Skin 01/10/21 21:28 Pulse 60 01/10/21 21:28 Respiratory Rate 16 01/10/21 21:35 Respiratory Effort Non-Labored 01/10/21 21:35 Respiratory Depth Normal 01/10/21 21:35 Respiratory Pattern Normal 01/10/21 21:35 Blood Pressure 174/65 H 01/10/21 21:28 Blood Pressure Position Sitting 01/10/21 21:28 Pulse Oximetry 96 01/10/21 21:28 Oxygen Delivery Method Room Air 01/10/21 21:28 Oxygen Flow Rate 0 01/10/21 21:28 Pain Level 0 01/10/21 21:28
[2021-01-10 21:49] LABS: Abs Immature Grans 0.04 10^3/uL (0.0-0.06); Absolute Basophil Count 0.07 10^3/uL (0.0-0.2); Absolute Lymphocyte Count 3.01 10^3/uL (1.2-3.4); Absolute Monocyte Count 0.84 10^3/uL (0.1-0.8); Absolute Neutrophil Count 6.25 10^3/uL (1.2-6.7); Basophils % 0.7; Eosinophils % 1.9; HCT 46.5 % (40.0-50.0); HGB 15.4 g/dL (13.5-17.5); Immature Grans % 0.4; Lymphocytes % 28.9; MCH 30.2 pg (27.0-33.0); MCHC 33.1 % (32.0-36.0); MCV 91.2 fL (80-95); MPV 9.5 fL (8.0-11.0); Monocytes % 8.1; Nucleated RBC 0 %; Platelet Count 197 10^3/uL (130-400); RDW 12.3 % (11.8-14.1); RDW-SD 41.3 fL; WBC 10.41 10^3/uL (4.4-10.8)
[2021-01-10 21:57] LABS: Magnesium 1.9 mg/dL (1.8-2.4)
[2021-01-10 21:58] LABS: Bilirubin Negative (Negative); Blood Negative (Negative); Clarity Clear (Clear); Glucose Negative (Negative); Ketones Negative (Negative); Leukocyte Esterase Negative (Negative); Nitrite Negative (Negative); Specific Gravity 1.015 (1.005-1.025); Urobilinogen 0.2 EU/dL (Up TO 0.2)
[2021-01-10 22:05] LABS: Troponin I 0.05 ng/mL (<0.06)
[2021-01-10 22:11] LABS: ALT 27 U/L (16-63); AST 20 U/L (15-37); Albumin 3.8 g/dL (3.4-5.0); Alkaline Phosphatase 72 U/L (46-116); BUN 15 mg/dL (7-18); Bilirubin, Total 0.8 mg/dL (0.2-1.0); CREATININE 0.9 mg/dL (0.70-1.30); Calcium 9.1 mg/dL (8.5-10.1); Chloride 107 mmol/L (98-107); Glucose 99 mg/dL (74-106); Sodium 143 mmol/L (136-145); Total Protein 7.7 g/dL (6.4-8.2)
[2021-01-10 22:13] LABS: ETHANOL BLOOD < 3.0 mg/dL (<3)
[2021-01-10 22:21] LABS: *AMPHETAMINES SCREEN URINE Negative (Negative); *BARBITURATES SCREEN URINE Negative (Negative); *BENZODIAZEPINES SCREEN URINE Negative (Negative); Cannabinoids THC Negative (Negative); Cocaine Screen,Urine Negative (Negative); METHADONE URINE SCREEN Negative (Negative); OPIATES URINE SCREEN Negative (Negative); Tricyclic Antidepressants Negative (Negative)
[2021-01-10] MEDS: Omnipaque 350 MG/ML 100 ML BTL IJ (22:53)
[2021-01-10] MEDS: Normal Saline Flush 10 ML SYR IVP (22:54)
--- NOTE | 2021-01-10 23:20 | DI.VRAD_ITS ---
PROCEDURE INFORMATION: Exam: CT Angiography Head With Contrast, Arteriography Exam date and time: 01/10/2021 9:44 PM Age: 60 years old Clinical indication: Other: Episodes of confusion TECHNIQUE: Imaging protocol: Computed tomography angiography of the head with contrast. Exam focused on the arteries. 3D rendering (Not supervised by radiologist): MIP and/or 3D reconstructed images were created by the technologist. Contrast material: OMNIPAQUE 350; Contrast volume: 85 ml; Contrast route: INTRAVENOUS (IV); COMPARISON: CT HEAD WO 10/01/2020 5:22 PM FINDINGS: ANTERIOR CIRCULATION: Right internal carotid artery: Unremarkable. Intracranial segment is patent with no significant stenosis. No aneurysm. Right middle cerebral artery: Unremarkable. No occlusion or significant stenosis. No aneurysm. Right anterior cerebral artery: Unremarkable. No occlusion or significant stenosis. No aneurysm. Left internal carotid artery: Unremarkable. Intracranial segment is patent with no significant stenosis. No aneurysm. Left middle cerebral artery: Unremarkable. No occlusion or significant stenosis. No aneurysm. Left anterior cerebral artery: Unremarkable. No occlusion or significant stenosis. No aneurysm. POSTERIOR CIRCULATION: Right vertebral artery: Unremarkable. No occlusion or significant stenosis. No aneurysm. Left vertebral artery: Unremarkable. No occlusion or significant stenosis. No aneurysm. Basilar artery: Unremarkable. No occlusion or significant stenosis. No aneurysm. Right posterior cerebral artery: Unremarkable. No occlusion or significant stenosis. No aneurysm. Left posterior cerebral artery: Unremarkable. No occlusion or significant stenosis. No aneurysm. Veins: Visualized venous sinuses are patent with no evidence of thrombosis. The superior sagittal and inferior sagittal sinuses are unremarkable. Transverse sinuses and sagittal sinuses are unremarkable. Brain: No acute intracranial hemorrhage. Obrien/white matter differentiation is unremarkable. Cisterns are unremarkable. Brainstem is unremarkable. No suprasellar mass. Cerebral ventricles: No ventriculomegaly. Orbital cavity: Orbits are unremarkable. No orbital hematoma. No mass lesion. No proptosis. Oculomotor muscles and optic nerves are unremarkable. Orbital globes are intact. No evidence of globe rupture. Bones/joints: Unremarkable. No acute fracture. Soft tissues: No mass lesion. No mass effect. Thalamus and hypothalamus are unremarkable. Cerebellum is unremarkable. No areas of abnormal enhancement after contrast administration. Paranasal sinuses: Mild polypoid mucosal thickening in left maxillary sinus. No fluid level in the sinuses. Filling defect is seen in posterosuperior sagittal sinus on series 4, image 103 measuring 10 x 3 mm in axial dimension and 8 mm in craniocaudal dimension. Finding appears to represent artifact from adjacent confluence of veins. The finding does not appear to represent a venous sinus thrombosis. Mild polypoid mucosal thickening in left maxillary sinus.. No fluid levels in the sinuses. IMPRESSION: No evidence of vascular pathology. PROCEDURE INFORMATION: Exam: CT Angiography Neck With Contrast Exam date and time: 01/10/2021 9:44 PM Age: 60 years old Clinical indication: Other: Episodes of confusion TECHNIQUE: Imaging protocol: Computed tomography angiography of the neck with contrast. 3D rendering (Not supervised by radiologist): MIP and/or 3D reconstructed images were created by the technologist. Contrast material: OMNIPAUE 350; Contrast volume: 85 ml; Contrast route: INTRAVENOUS (IV); COMPARISON: CT HEAD WO 10/01/2020 5:22 PM FINDINGS: Right common carotid artery: No stenosis. No dissection or occlusion. Right internal carotid artery: No stenosis of the extracranial segment. No dissection or occlusion. Right external carotid artery: No occlusion or stenosis of the origin. Left common carotid artery: No stenosis. No dissection or occlusion. Left internal carotid artery: No stenosis of the extracranial segment. No dissection or occlusion. Left external carotid artery: No occlusion or stenosis of the origin. Right vertebral artery: No stenosis. No dissection or occlusion. Left vertebral artery: No stenosis. No dissection or occlusion. Soft tissues: Normal. No significant soft tissue swelling. Bones/joints: No acute fracture. IMPRESSION: No evidence of vascular stenosis by NASCET criteria. REFERENCES: NASCET CRITERIA. The degree of internal carotid artery stenosis is based on NASCET criteria. Normal is no stenosis. Mild is less than 50% stenosis. Moderate is 50-69% stenosis. Severe is 70% to 99% stenosis. Total occlusion is no detectable patent lumen. Dictated and Authenticated by: Priscila Escalante MD. Ordering:TAL Ramos MD
== END 2021-01-10 23:45 | disposition home or self-care (01) ==
PROVIDERS: Emergency Provider Registered Nurse Emergency; PCP Family Medicine
DX: R41.0 Disorientation, unspecified (principal)
CPT/HCPCS: 36415; 36416; 70496; 70498; 80053; 80307; 82962; 93005; 99285; 80320; 81003; 83735; 84484; 85025; 93010; 99284; J3490

== ENCOUNTER 2021-07-24 09:12 | Outpatient (REF) | payer OTHER, SELFPAY ==
[2021-07-24 15:13] LABS: HCT 49.4 % (40.0-50.0); HGB 16.3 g/dL (13.5-17.5); MCH 30.2 pg (27.0-33.0); MCV 91.7 fL (80-95); Platelet Count 236 10^3/uL (130-400); RBC 5.39 10^6/uL (4.36-5.78); RDW 12.5 % (11.8-14.1); RDW-SD 41.9 fL; WBC 10.03 10^3/uL (4.4-10.8)
[2021-07-24 17:12] LABS: Anion Gap 8.6 mmol/L (3-11); BUN 14 mg/dL (7-18); CO2 25.4 mmol/L (21.0-32.0); CREATININE 0.8 mg/dL (0.70-1.30); Calculated LDL 49 mg/dL (<100); Chloride 106 mmol/L (98-107); Cholesterol 101 mg/dL (<200); Glucose 101 mg/dL (74-106); HDL Cholesterol 37 mg/dL (40-60); Potassium 4.5 mmol/L (3.5-5.1); Sodium 140 mmol/L (136-145); Triglyceride 79 mg/dL (<150)
[2021-07-25 08:56] LABS: PSA, Screening 0.4 ng/mL (0.0-3.5)
== END 2021-07-24 09:13 | disposition home or self-care (01) ==
LOC: NCHCN 09:12
PROVIDERS: PCP Family Medicine; Visit Provider Family Medicine
DX: I10 Essential (primary) hypertension (principal); E78.5 Hyperlipidemia, unspecified; Z86.010 Personal history of colon polyps
CPT/HCPCS: 80048; 80061; 84153; 85027

== ENCOUNTER → 2021-09-25 12:55 | Outpatient (CLI) | payer OTHER, SELFPAY ==
--- NOTE | 2021-09-25 12:48 | DI.RAD_ITS ---
Exam(s) XR HEEL LT OS CALCIS EXAM: XR HEEL LT OS CALCIS CLINICAL HISTORY: LEFT HEEL PAIN, M79.672 - UNABLE TO WEIGHT-BEAR ? FX. TECHNIQUE: 2D digital imaging was performed. COMPARISON: No exams were available for comparison FINDINGS: Two dedicated views of the left calcaneus (lateral and Rogelio axial views). There is no evidence of obvious calcaneus fracture. Prominent inferior calcaneal spur is noted as is some calcification in the adjacent plantar fascia. There is also calcification posteriorly at the i nsertional aspect of the Achilles tendon on the posterior calcaneus. Subtalar joint appears unremark able. Calcaneocuboid joint unremarkable and there is no obvious fracture of the anterior process of the calcaneus. IMPRESSION: Findings as above. No obvious fracture lines. If clinically indicated follow-up MRI can be performe d to determine if there is a subtle fracture in the calcaneus which is not evident on plain films. Inferior calcaneal spur and some calcification noted in the adjacent plantar fascia DATA REPOSITORY: RADIATION DOSE DELIVERED:
== END ==
PROVIDERS: PCP Family Medicine; Visit Provider Physician Assistant Medical
DX: M79.672 Pain in left foot (principal); M77.32 Calcaneal spur, left foot; M25.872 Other specified joint disorders, left ankle and foot
CPT/HCPCS: 73650

== ENCOUNTER 2021-10-08 10:43 | Outpatient (CLI) | payer OTHER, SELFPAY ==
--- NOTE | 2021-10-08 10:40 | DI.RAD_ITS ---
Exam(s) XR HEEL LT OS CALCIS EXAM: XR HEEL LT OS CALCIS CLINICAL HISTORY: injury. TECHNIQUE: 2D digital imaging was performed. COMPARISON: CR XR HEEL LT OS CALCIS from 09/25/2021 FINDINGS: Two dedicated views of the calcaneus again reveal no inferior calcaneal spur. However, on the presen t study the lateral view reveals a vertically orientated line at the base of the inferior calcaneal s pur which may be a nondisplaced fracture. This was not evident on the previous lateral view of 09/25. Again noted is some calcification in the plantar fascia at this level. The remainder of the calcaneus appears unremarkable as does the subtalar joint. There is a prominent posterior process of the talus noted. There is no evidence of osseous tarsal coalition. IMPRESSION: Possible nondisplaced fracture at the base of the inferior calcaneal spur. Calcification noted in the plantar fascia at this level DATA REPOSITORY: RADIATION DOSE DELIVERED:
== END 2021-10-08 10:44 | disposition home or self-care (01) ==
LOC: DIORS 10:43
PROVIDERS: PCP Family Medicine; Referring Provider Family Medicine; Visit Provider Physician Assistant Surgical
DX: M79.672 Pain in left foot (principal); M85.872 Other specified disorders of bone density and structure, left ankle and foot
CPT/HCPCS: 73650

== ENCOUNTER → 2022-01-01 01:34 | Outpatient (CLI) | payer OTHER, SELFPAY ==
--- NOTE | 2022-01-01 07:33 | DI.US_ITS ---
APPROVED REPORT EXAM: Comprehensive 2D, Doppler, and color-flow Echocardiogram Patient Location: Out-Patient Title Specialist: Therese Ritter RDCS (AE) Indications: H/O Bicuspid aortic valve,HTN Other Information Study Quality: Adequate Conclusion Dilated left ventricle. Moderate concentric left ventricular hypertrophy. Estimated ejection fracti on is 60%. Wall motion is normal Normal right ventricular size and systolic function Left atrium is moderately dilated. Right atrial size is normal Aortic valve is calcified, appears functionally bicuspid. There is moderate to severe aortic stenosi s. Peak gradient is 59, mean gradient 36 mmHg calculated aortic valve area is 1.28 cm?? There is moderate to severe aortic regurgitation Normal mitral valve with mild regurgitation Normal tricuspid valve with mild regurgitation. Estimated right ventricular systolic pressure is 31 mmHg Dilated ascending aorta measuring 4.52 cm Wall motion Left Ventricle Left ventricle is moderately dilated. The left ventricular systolic function is normal. The left vent ricular ejection fraction is within the normal range. Moderate concentric left ventricular hypertroph y. There is normal LV segmental wall motion. There is no ventricular septal defect visualized. LVEF i s 60%. Right Ventricle Right ventricle is grossly normal in size. The right ventricular systolic function is normal. The RVS P is 30.9_ mmHg. Atria Left atrium is moderately dilated. The right atrium size is normal. The interatrial septum is intact with no evidence for an atrial septal defect. Aortic Valve Number of aortic valve leaflets could not be assessed. Aortic valve is calcified. Moderate to severe aortic stenosis. Peak aortic valve gradient is 59.6mmHg. Highest mean aortic valve gradient is 35.8mm Hg. Calculated FINA by the continuity equation is 1.28cm2. Moderate to severe aortic regurgitationn. Mitral Valve The mitral valve is normal in structure. No evidence of mitral valve stenosis. Mild mitral regurgitat ion. Tricuspid Valve The tricuspid valve is normal in structure. There is no tricuspid valve stenosis. Mild tricuspid regu rgitation. Pulmonic Valve The pulmonary valve is normal in structure. There is no pulmonic valvular stenosis. Mild pulmonic reg urgitation. Great Vessels Aortic root is severely dilated. The ascending aorta is severely dilated. Aortic arch is normal in ca liber. IVC is normal in size and collapses >50% with inspiration. Pericardium There is no pericardial effusion. 2D Dimensions IVSD d PLAX 1.47 cm M: 0.6-1.2 LV Vol A2C d MOD 260.6 mL LVPW d PLAX 1.47 cm M: 0.6 - 1.2 LV Vol A4C d MOD 295.8 mL LVID d PLAX 7.28 cm M: 4.2 - 5.8 LA vol/ BSA A2C s A-L 48.8 mL/m2 LVDs 4.60 cm M: 2.5 - 4.0 LA vol/ BSA A4C s A-L 36.9 mL/m2 Ao Root d 4.38 cm M: 3.1 - 3.7 LA Vol/ BSA Biplane s A-L 43.0 mL/m2 RA Area A4C 21.00 cm2 LA Area A4C s MOD 22.87 cm2 RA Vol/ BSA A4C s A-L 29.7 mL/m2 LA Area A2C s MOD 26.66 cm2 Ao Asc Diam d 4.52 cm M: 2.6 - 3.4 LV EF A4C MOD 58.7 % LV EF Teichholz 64.6 % LV EF A2C MOD 61.8 % LVEF (Ramirez's) 61.43 % M: 52 - 72 LV EF Biplane MOD 61.4 % LV Volume 212.48 mL M: 62 - 150 SV 175.88 mL LV Volume Index 103.14 mL/m2 M: 34 - 74 SV Index 85.20 mL/m2 LV Vol Biplane MOD 286.3 mL FS 36.40 % M-Mode TAPSE 3.87 cm (M/F) >1.7 LV Diastology MV E' medial 0.068 (>0.07 m/s) E/A Ratio 1.3 LV E/e MED 11.40 (<14) MV E Vmax 0.78 (0.4-1.3 m/s) MV E' lateral 0.060 (>0.1 m/s) MV A Vmax 0.60 (0.4-1.3 m/s) LV E/e LAT 13.05 (<14) MV E/A Ratio 1.28 MV E/E' medial 11.43 MV E/E' lateral 13.06 Aortic Valve LVOT Area 3.76 cm2 AoV Area Vmax 1.28 cm2 LVOT Vmax 1.31 m/s AoV Area/ BSA (Vmax) 0.62 cm2/m2 LVOT Mean Bret. 0.86 m/s FINA Mean Bret. 1.15 cm2 LVOT Peak Grad 6.9 mmHg FINA Mean Bret. Index 0.56 cm2/m2 LVOT Mean Grad 3.5 mmHg AR DT 2195 msec LVOT VTI 0.346 m AR PHT 636 msec LVOT Diam s 2.15 cm AoV Vmax 3.86 m/s Velocity Ratio 0.33 AoV Mean Bret. 2.82 m/s AoV Peak Grad 59.6 mmHg LVOT SV 129.94 mL AoV Mean Grad 35.8 mmHg AoV VTI 0.967 m AoV Area VTI 1.34 cm2 AoV Area/ BSA (VTI) 0.65 cm/m2 Mitral Valve MV DT 261 (160-240 msec) MV PHT 76 msec MV Area PHT 2.91 cm2 Pulmonary Valve PV Vmax 1.04 (0.5-1.5 m/s) RVOT Peak Gr. 1.19 mmHg PV Peak Grad 4.3 mmHg RVOT Mean Gr. 0.60 mmHg PV Mean Grad 2.9 mmHg RVOT VTI 0.142 m PV VTI 0.188 m RVOT Vmax 0.54 m/s Tricuspid Valve TR Peak Grad 27.8 mmHg TR Vmax 2.64 m/s RA Pressure 3.00 mmHg RVSP (TR) 30.9 mmHg
== END ==
PROVIDERS: PCP Family Medicine; Visit Provider Internal Medicine Cardiovascular Disease
DX: I10 Essential (primary) hypertension (principal); E78.5 Hyperlipidemia, unspecified; I35.8 Other nonrheumatic aortic valve disorders; I42.2 Other hypertrophic cardiomyopathy; I35.0 Nonrheumatic aortic (valve) stenosis
CPT/HCPCS: 93306

== ENCOUNTER 2022-01-07 10:20 | Outpatient (CLI) | payer OTHER, SELFPAY ==
--- NOTE | 2022-01-07 10:15 | RT.EKG_ITS ---
APPROVED REPORT Exam: Resting ECG Reason for Exam: NPW, Baseline needed Patient Location: O HR:64 bpm ECG Measurements Heart Rate [address] 176 P 3 QRSd 128 QRS -29 QT 396 T 146 QTc 409 Conclusion Sinus rhythm...normal P axis, V-rate 50- 99 LVH with IVCD and secondary repol abnrm...multi-criteria, wQRSd, abnr ST-T
== END 2022-01-07 10:21 | disposition home or self-care (01) ==
LOC: DI.CARD 10:21
PROVIDERS: PCP Family Medicine; Visit Provider Internal Medicine Cardiovascular Disease
DX: I05.0 Rheumatic mitral stenosis (principal); I25.10 Atherosclerotic heart disease of native coronary artery without angina pectoris; I47.2 Ventricular tachycardia; I49.3 Ventricular premature depolarization; R00.1 Bradycardia, unspecified; R01.1 Cardiac murmur, unspecified; R55 Syncope and collapse; R94.31 Abnormal electrocardiogram [ECG] [EKG]
CPT/HCPCS: 93010

== ENCOUNTER 2022-07-25 11:18 | Outpatient (REF) | payer OTHER, SELFPAY ==
[2022-07-25 17:30] LABS: Hemoglobin A1C 5.8 % (<5.7)
[2022-07-25 18:05] LABS: Anion Gap 11.1 mmol/L (3-11); BUN 16 mg/dL (7-18); CO2 23.9 mmol/L (21.0-32.0); CREATININE 0.9 mg/dL (0.70-1.30); Calcium 8.9 mg/dL (8.5-10.1); Calculated LDL 46 mg/dL (<100); Chloride 106 mmol/L (98-107); Cholesterol 99 mg/dL (<200); Estimated GFR 97.78 (mL/min/1.73m2); Glucose 110 mg/dL (74-106); HDL Cholesterol 42 mg/dL (40-60); Potassium 4.5 mmol/L (3.5-5.1); Sodium 141 mmol/L (136-145); Triglyceride 57 mg/dL (<150)
[2022-07-28 11:14] LABS: PSA, Screening 0.4 ng/mL (<=4.5)
== END 2022-07-25 11:19 | disposition home or self-care (01) ==
LOC: NCHCN 11:18
PROVIDERS: PCP Family Medicine; Visit Provider Family Medicine
DX: Z00.00 Encounter for general adult medical examination without abnormal findings (principal); R73.03 Prediabetes; I10 Essential (primary) hypertension; E78.5 Hyperlipidemia, unspecified; Z12.5 Encounter for screening for malignant neoplasm of prostate
CPT/HCPCS: 80048; 80061; 84153; 83036

== ENCOUNTER 2022-08-21 02:06 | Outpatient (CLI) | payer OTHER, SELFPAY ==
[2022-08-21] MEDS: Albuterol HFA 18 GM 200 PUFF INH IH (09:01)
[2022-08-21] MEDS: Inhaler, Assist Device 1 EACH MC (09:01)
--- NOTE | 2022-08-22 11:12 | W.PFT ---
Date of service: 08/21/22 Time of Service: 07:55 Pulmonary Function Test Result Indications: Dyspnea Interpretation Spirometry: There is moderate airflow limitation. There is a significant bronchodilator response. Lung Volumes: There is air trapping Diffusion Capacity: Normal diffusion Airway Pressure: Normal airways resistance. Impression Moderate airflow limitation with a bronchodilator response and air trapping. In the correct clinic context this may represent COPD (chronic bronchitis) or Asthma-COPD overlap syndrome. Clinical Correlation therefore is recommended.
== END 2022-08-21 02:07 | disposition home or self-care (01) ==
LOC: RT 02:06
PROVIDERS: PCP Family Medicine; Visit Provider Family Medicine
DX: R06.09 Other forms of dyspnea (principal)
CPT/HCPCS: 94060; 94726; 94729

== ENCOUNTER 2022-09-02 03:34 | Emergency (ER) | payer OTHER, SELFPAY ==
[2022-09-02] VITALS (155 sets, daily range): BP systolic 63–167; BP diastolic 23–98; PULSE 45–65; RESP 11–24; TEMP 36.6–36.9; O2SAT 90–98
--- NOTE | 2022-09-02 03:30 | DI.CT_ITS ---
Exam(s) CT THORAX CTA EXAM: CT THORAX CTA CLINICAL HISTORY: cp, sob, hx of anyurism, r/o dissection. TECHNIQUE: Imaging Protocol: Axial CT angiography was performed with multi-slice acquisition and mu lti-planar and/or 3D reconstructions. CONTRAST MATERIAL: Intravenous: Omnipaque 350 contrast volume:100 mL COMPARISON: CT CHEST FOR PULMONARY EMBOLUS from 05/17/[address] CHEST LUNG CANCER SCREEN from 01/01/2022 FINDINGS: The examination is limited due to patient motion artifact. Tracheobronchial tree: Patent where visualized. Pulmonary parenchyma: No consolidation or dominant measurable mass. No architectural distortion. Ther e is a calcified granuloma in the left lower lobe. Dependent atelectatic changes are seen in the kendall g bases. There is scarring seen in the lingula. There are stable pulmonary nodules. Pulmonary Arteries: Due to the bolus timing, there is inadequate opacification of the pulmonary arter ies. Mediastinum and Chantell: No dominant adenopathy or fluid collection. The esophagus is unremarkable. Th ere is a small hiatal hernia. Visualized thyroid gland: Unremarkable. Pleura: No effusion or pneumothorax. Heart: Mild cardiomegaly. Mild coronary artery calcification is present. No pericardial effusion. Aorta: There is a tortuous descending thoracic aorta. It measures up to 4.2 cm in diameter. No evid ence of dissection. Atherosclerosis. Upper abdomen: Unremarkable. Soft tissues: Unremarkable. Bones: Within normal limits for the patient's age. IMPRESSION: 1. No focal consolidating infiltrate. 2. No evidence of thoracic aortic dissection. 4.2 cm descending thoracic aorta is noted. 3. Due to the bolus timing pulmonary artery evaluation is limited. No large central pulmonary embolu s is seen. RADIATION DOSE DELIVERED: 683.27mGy.cm Total DLP 683.27mGy.cm Total DLP DATA REPOSITORY: All CT scans at this facility are submitted to the National Radiology Data Registry (NRDR) Dose Index Registry (DIR) with the [employer] (ACR). RADIATION OPTIMIZATION: All CT scans at this facility use at least one of these dose optimization te chniques: automated exposure control; mA and/or kV adjustment per patient size (includes targeted exa ms where dose is matched to clinical indication); or iterative reconstruction.
--- NOTE | 2022-09-02 03:30 | RT.EKG_ITS ---
APPROVED REPORT Exam: Resting ECG Reason for Exam: sob Patient Location: E HR:57 bpm ECG Measurements Heart Rate 57 AXIS GA 230 P 26 QRSd 140 QRS 8 QT 465 T 166 QTc 451 Conclusion Sinus bradycardia...rate< 60 Atrial premature complex...SV complex w/ short R-R interval Prolonged GA interval...GA >210, V-rate 50- 90 IVCD, consider LBBB...QRSd>120, notch/slur R I aVL V5-6 Physician: negative for sgarbossa. no stemi
--- NOTE | 2022-09-02 04:02 | W.ED.GENAD ---
Discharge Plan Disposition Patient Disposition: Transfer-Acute Inpatient Care Specific Acute Inpt Facility: [facility] Condition: Serious Discharge Details Clinical Impression: Non-ST elevation [place] (NSTEMI), Acute dyspnea Primary Care Provider: Tono Montero ED Provider: Mitchell Parsons Home Meds and New Rx's Prescriptions: No Action losartan 50 mg tablet 100 mg PO HS Patient Comments: TAKE 1 TABLET BY MOUTH DAILY FOR BLOOD PRESSURE aspirin [Adult Aspirin Regimen] 81 mg tablet,delayed release (DR/EC) 81 mg PO DAILY metoprolol succinate 25 mg tablet extended release 24 hr 25 mg PO .nightly Qty: 90 3RF atorvastatin 20 mg tablet 20 mg PO HS Qty: 0 0RF Patient Comments: TAKE 1 TABLET BY MOUTH DAILY AT BEDTIME albuterol sulfate 90 mcg/actuation HFA aerosol inhaler INHALATION Patient Comments: INHALE 2 PUFFS BY MOUTH EVERY 4 HOURS NEEDED psyllium husk 0.52 gram capsule PO Patient Comments: Take 1 capsule by mouth twice a day start once/day, may increase to twice a day after one month. take with glass of water bupropion HCl 150 mg tablet sustained-release 12 hr PO Patient Comments: TAKE 1 TABLET BY MOUTH ONCE DAILY FOR 3 DAYS THEN INCREASE TO TAKE ONE TABLET TWICE DAILY. START ONE WEEK BEFORE YOU QUIT SMOKING. Medical Decision Making 62-year-old male with a past medical history of a dilated ascending aorta, last measured at around 4.8 centimeters, sleep apnea, hypertension, bicuspid aortic valve, aortic stenosis with regurgitation, who presents today for evaluation of shortness of breath. Patient states that for the last 2 to 3 days he has had a mild right sided chest shortness of breath and tightness. It is not worsened with exertion or activity. He is a tobacco user and recently quit 2 weeks ago. He denies fever or chills. He denies vomiting or diarrhea. He denies any chest pain, tearing or ripping sensation, or other complaint. He does admit to intermittent tingling in his right arm. No other complaints at this time. No other modifying factors. Exam demonstrates well-appearing male, vital signs stable. Mildly hypertensive. Pulses are equal. Differential includes mild CHF secondary to his valvular pathology, but also of concern is worsening aneurysm versus dissection. Will evaluate for these concerning etiologies, monitor closely and reassess. 7:10 AM Laboratory work-up shows evidence of an elevated troponin at 115, as well as an elevated proBNP at 2351. COVID is negative. CTA shows no evidence of dissection. There is marked aortic valvular calcification, and a dilated ascending thoracic aorta, as well as mild interstitial edema. Patient is not hypoxic at this time. No signs of respiratory distress. Patient feels subjectively short of breath, but no evidence of tachypnea or hypoxemia at this time. Patient remains hemodynamically stable at this time. Bedside echo was performed demonstrates evidence of notable left ventricular lateral wall motion abnormality and diminished movement. Ejection fraction upon my review appears to be around 30% at best. This is a marked decrease from December 2019 when he was at 60%. Concern for NSTEMI, and I do have a high suspicion for a component of this being secondary to his aortic valvular disease. We did contact [facility] and I discussed the case with Dr. Andrea cardiology. He agrees on the need for transfer. Patient will be transferred via [facility] once bed becomes available. We have heparinize the patient. [facility] does recommend holding off on a Plavix bolus at this time. Patient will be signed out to my colleague pending transfer. FINDINGS: Pulmonary arteries: Limited evaluation of the lobar and segmental pulmonary arteries due to timing of the contrast bolus which was optimized for evaluation of the aorta. No central pulmonary arterial filling defects. Aorta: Tortuosity of the descending thoracic aorta. 4.6 cm maximum diameter of dilated ascending thoracic aorta. Lungs: Calcified granuloma in the left lower lobe. Mild dependent changes at the lung bases. Mild smooth thickening of the interlobular septa at the lung bases. Linear opacity at the lingula, consistent with subsegmental atelectasis and/or scar. No confluent infiltrates. Two stable left upper lobe pulmonary nodules measuring up to 4 mm in size, unchanged compared to CT of 10/29/2020. No new or suspicious pulmonary nodules Pleural spaces: Unremarkable. No pneumothorax. No pleural effusion. Heart: Mild cardiomegaly. Mild to moderately dilated left ventricle. Marked aortic valvular calcification. Lymph nodes: Unremarkable. No enlarged lymph nodes. Bones/joints: Unremarkable. No acute fracture. Soft tissues: Unremarkable. IMPRESSION: 1. Mild interstitial edema. 2. No evidence of thoracic aortic aneurysm or dissection. 3. Marked aortic valvular calcification. This finding is associated with aortic stenosis. 4. Dilated ascending thoracic aorta. Recommend clinical assessment and follow-up. 5. Stable pulmonary nodule(s) measuring less than 6 mm. No follow-up. (Reference: Yamil) REFERENCES: Yamil Padilla, et al. Guidelines for Management of Incidental Pulmonary Nodules Detected on CT Images: From the Fleischner Society 2017. Radiology. 2017;284(1):228-243. Thank you for allowing us to participate in the care of your patient. Dictated and Authenticated by: Kamala Kendrick MD 09/02/2022 6:33 AM Eastern Time ([place] & [place]) HPI General Date/Time Provider Initiated Documentation: 09/02/22 03:37. HPI Narrative: 62-year-old male with a past medical history of a dilated ascending aorta, last measured at around 4.8 centimeters, sleep apnea, hypertension, bicuspid aortic valve, aortic stenosis with regurgitation, who presents today for evaluation of shortness of breath. Patient states that for the last 2 to 3 days he has had a mild right sided chest shortness of breath and tightness. It is not worsened with exertion or activity. He is a tobacco user and recently quit 2 weeks ago. He denies fever or chills. He denies vomiting or diarrhea. He denies any chest pain, tearing or ripping sensation, or other complaint. He does admit to intermittent tingling in his right arm. No other complaints at this time. No other modifying factors. Related Data Home Medications Medication Instructions Recorded Confirmed atorvastatin 20 mg tablet 20 mg PO HS #0 tabs 10/02/20 09/02/22 aspirin 81 mg tablet,delayed 81 mg PO DAILY 01/08/21 09/02/22 release (Adult Aspirin Regimen) losartan 50 mg tablet 100 mg PO HS 01/08/21 09/02/22 metoprolol succinate 25 mg 25 mg PO .nightly #90 tabs 01/08/21 09/02/22 tablet,extended release 24 hr albuterol sulfate 90 mcg/actuation inhalation 09/02/22 aerosol inhaler bupropion HCl 150 mg tablet,12 hr mg PO 09/02/22 sustained-release psyllium husk 0.52 gram capsule g PO 09/02/22 Previous Rx's Medication Instructions Recorded atorvastatin 20 mg tablet 20 mg PO HS #0 tabs 10/02/20 metoprolol succinate 25 mg 25 mg PO .nightly #90 tabs 01/08/21 tablet,extended release 24 hr Allergies Allergy/AdvReac Type Severity Reaction Status Date / Time No Known Allergies Allergy Verified 01/07/22 10:24 General Stated Complaint: Chest Pain ISHA: 3 Review of Systems All systems reviewed & are unremarkable except as noted in HPI and below PFSH All Active Problems (Updated 09/02/22 @ 06:50 by Mitchell Parsons DO) Non-ST elevation [place] (NSTEMI) (Acute) Acute dyspnea (Acute) Ascending aorta dilatation (Acute) Plantar fascia rupture (Acute ~09/2021) Fracture of foot bone, left, closed (Acute 09/24/21) plantar calcaneal spur Mitral stenosis (Acute) Prediabetes (Acute) Ventricular ectopy (Acute) CAD (coronary artery disease) (Chronic) Acute confusion (Acute) Bicuspid aortic valve (Acute) Hyperlipidemia (Acute) HTN (hypertension) with goal to be determined (Acute) Alcohol use (Acute) 07/30/[address] Montero active problem RH Smoker (Acute) as of 07/30/20 trying to cut back RH Sleep apnea (Acute) Diverticular disease (Acute) Elevated fasting blood sugar (Acute) Body mass index [BMI] 34.0-34.9, adult (Acute) NSVT (nonsustained ventricular tachycardia) (Acute) Heart murmur (Acute) Abnormal ECG (Acute) Near syncope (Acute) Bradycardia (Acute) Medical History Left inguinal hernia Social History Smoking/Tobacco Use Status: Current every day Tobacco Type: cigarettes Smoking risk assessment performed?: Yes Alcohol Intake: current Alcohol Intake frequency: a few times a month Alcohol type: beer Drug use: Never Substance use type: does not use Current gender identity: male What type of physical activity do you participate in: additional Details: 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 3.ENT: Atraumatic external nose and ears. Moist MM. Neck: Symmetric, trachea midline, No thyromegaly. 4.CVS: +S1/S2, notable systolic murmur. Peripheral pulses 2+ and equal in all extremities. Brisk capillary refill in all extremities. Radial pulses +2 bilaterally 5.RESP: Unlabored respiratory effort. Clear to auscultation bilaterally. No wheezes rales or rhonchi 6.GI: Soft, Nontender/Nondistended, No hepatosplenomegaly. No guarding or rebound. 7.MSK: Normocephalic/Atraumatic, Extremities w/o deformity or ttp No cyanosis or clubbing, Normal movement of all extremities 8.Skin: Warm, Dry. No rashes or lesions. 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 Sensation grossly intact, no focal neurologic deficits. 10.Psych: (AAO) x3. Appropriate mood and affect Course Vital Signs Vital signs: Vital Signs Temperature 36.9 C 09/02/22 03:38 Pulse 60 09/02/22 03:38 Respiratory Rate 22 09/02/22 03:38 Blood Pressure 150/55 H 09/02/22 03:38 Pulse Oximetry 96 09/02/22 03:38 Temperature 36.9 C 09/02/22 03:38 Temperature Source Oral 09/02/22 03:38 Pulse 60 09/02/22 03:38 Respiratory Rate 22 09/02/22 03:38 Respiratory Effort Short of Breath 09/02/22 03:46 Blood Pressure 150/55 H 09/02/22 03:38 Blood Pressure Position Sitting 09/02/22 03:38 Pulse Oximetry 96 09/02/22 03:38 Oxygen Delivery Method Room Air 09/02/22 03:38 Oxygen Flow Rate 0 09/02/22 03:38 Pain Level 0 09/02/22 03:38 Critical Care Time Critical Care Time Critical Care Time: Yes Total Critical Care Time: 30 Attestation: Upon my evaluation, this patient had a high probability of imminent or life-threatening deterioration, which required my direct attention, intervention, and personal management. I have personally provided 30 minutes of critical care time exclusive of time spent on separately billable procedures. Time includes review of laboratory data, radiology results, discussion with consultants, and monitoring for potential decompensation. Interventions were performed as documented. POCUS Exam (ED) Limited Cardiac Exam DATE OF EXAM: 09/02/22 TIME OF EXAM: 07:15 PROVIDER THAT PERFORMED THE STUDY: Mitchell Parsons IS THIS A REPEAT EXAM DURING THIS ENCOUNTER: no REASON FOR EXAM: Dyspnea VISUALIZED STRUCTURES: Left atrium, Left ventricle and Right atrium PERTINENT FINDINGS/IMPRESSION: LV dysfunction INCIDENTAL FINDINGS: Notable wall motion abnormality noted on the left lateral heart border. Ejection fraction limited and around 30% Exam complete PAWSS Have you Been Recently Intoxicated or Drunk Within the Last 30 days?: No Have you Ever Experienced Previous Episodes of Alcohol Withdrawal?: No Have you ever Experienced Withdrawal Seizures?: No Have you ever Experienced Delirium Tremens(DT)s?: No Have you ever undergone Alcohol Rehabilitation Treatment (i.e, inpt ot outpatient treatment programs)?: No Have you ever Experienced Blackouts?: No Have you ever Combined Alcohol with other Downers within the last 90 days?: No Have you ever Combined Alcohol with any other Substance of Abuse during the last 90 days?: No Positive Blood Alcohol level on Presentation? [PCS.BAL]: No Evidence of Increased Autonomic Activity (i.e. HR>120, tremor, sweating, agitation, nausea)?: No Result: 0
[2022-09-02 04:28] LABS: Abs Immature Grans 0.02 10^3/uL (0.0-0.06); Absolute Basophil Count 0.07 10^3/uL (0.0-0.2); Absolute Eosinophil Count 0.34 10^3/uL (0.0-0.7); Absolute Lymphocyte Count 2.75 10^3/uL (1.2-3.4); Absolute Monocyte Count 0.74 10^3/uL (0.1-0.8); Absolute Neutrophil Count 5.66 10^3/uL (1.2-6.7); Basophils % 0.7; Eosinophils % 3.5; HCT 47.4 % (40.0-50.0); HGB 15.4 g/dL (13.5-17.5); Immature Grans % 0.2; Lymphocytes % 28.7; MCH 30.2 pg (27.0-33.0); MCHC 32.5 % (32.0-36.0); MCV 93 fL (80-95); MPV 10.1 fL (8.0-11.0); Monocytes % 7.7; Neutrophils % 59.2; Platelet Count 172 10^3/uL (130-400); RDW 12.9 % (11.8-14.1); RDW-SD 44.1 fL; WBC 9.58 10^3/uL (4.4-10.8)
[2022-09-02 04:42] LABS: PTT Activated 26.1 sec (21.5-31.9); Prothrombin Time 10.1 sec (9.3-11.0)
[2022-09-02 04:54] LABS: ALT 28 U/L (16-63); AST 16 U/L (15-37); Albumin 3.6 g/dL (3.4-5.0); Alkaline Phosphatase 61 U/L (46-116); Anion Gap 9.9 mmol/L (3-11); BUN 15 mg/dL (7-18); Bilirubin, Total 0.6 mg/dL (0.2-1.0); CO2 26.1 mmol/L (21.0-32.0); Calcium 8.5 mg/dL (8.5-10.1); Chloride 107 mmol/L (98-107); Estimated GFR 86.16 (mL/min/1.73m2); Glucose 105 mg/dL (74-106); NT-proBNP 2351 pg/mL (<300); Potassium 4.2 mmol/L (3.5-5.1); Sodium 143 mmol/L (136-145); Total Protein 7.2 g/dL (6.4-8.2)
[2022-09-02 04:56] LABS: Troponin I 115 ng/L (<or=60)
[2022-09-02] MEDS: Normal Saline Flush 10 ML SYR IVP (05:00)
[2022-09-02] MEDS: Omnipaque 350 MG/ML 100 ML BTL IJ (05:00)
[2022-09-02] MEDS: Normal Saline - Diluent 50 ML VIAL IJ (05:01)
[2022-09-02 05:12] LABS: COVID-19 PCR Negative (Negative); Source Nasopharynx
--- NOTE | 2022-09-02 06:34 | DI.VRAD_ITS ---
Addendum created by Kamala Kendrick MD on 09/02/2022 6:34:31 AM EDT: Addendum: There is an error in IMPRESSION #2 of the report, which should read as follows: 2. No evidence of thoracic aortic dissection. Initial report created on 09/02/2022 6:33:27 AM EDT: PROCEDURE INFORMATION: Exam: CTA Chest With Contrast Exam date and time: 09/02/2022 5:05 AM Age: 62 years old Clinical indication: Pain; Shortness of breath; Chest pressure; Patient HX: Cp, SOB, HX of anyurism, R/O dissection TECHNIQUE: Imaging protocol: Computed tomographic angiography of the chest with contrast. 3D rendering (Not supervised by radiologist): MIP and/or 3D reconstructed images were created by the technologist. Radiation optimization: All CT scans at this facility use at least one of these dose optimization techniques: automated exposure control; mA and/or kV adjustment per patient size (includes targeted exams where dose is matched to clinical indication); or iterative reconstruction. Contrast material: OMNIPAQUE 350; Contrast volume: 100 ml; Contrast route: INTRAVENOUS (IV); COMPARISON: CT CHEST LUNG CANCER SCREEN 01/01/2022 8:55 AM FINDINGS: Pulmonary arteries: Limited evaluation of the lobar and segmental pulmonary arteries due to timing of the contrast bolus which was optimized for evaluation of the aorta. No central pulmonary arterial filling defects. Aorta: Tortuosity of the descending thoracic aorta. 4.6 cm maximum diameter of dilated ascending thoracic aorta. Lungs: Calcified granuloma in the left lower lobe. Mild dependent changes at the lung bases. Mild smooth thickening of the interlobular septa at the lung bases. Linear opacity at the lingula, consistent with subsegmental atelectasis and/or scar. No confluent infiltrates. Two stable left upper lobe pulmonary nodules measuring up to 4 mm in size, unchanged compared to CT of 10/29/2020. No new or suspicious pulmonary nodules. Pleural spaces: Unremarkable. No pneumothorax. No pleural effusion. Heart: Mild cardiomegaly. Mild to moderately dilated left ventricle. Marked aortic valvular calcification. Lymph nodes: Unremarkable. No enlarged lymph nodes. Bones/joints: Unremarkable. No acute fracture. Soft tissues: Unremarkable. IMPRESSION: 1. Mild interstitial edema. 2. No evidence of thoracic aortic aneurysm or dissection. 3. Marked aortic valvular calcification. This finding is associated with aortic stenosis. 4. Dilated ascending thoracic aorta. Recommend clinical assessment and follow-up. 5. Stable pulmonary nodule(s) measuring less than 6 mm. No follow-up. (Reference: Yamil) REFERENCES: Yamil Padilla et al. Guidelines for Management of Incidental Pulmonary Nodules Detected on CT Images: From the Fleischner Society 2017. Radiology. 2017;284(1):228-243. Dictated and Authenticated by: Kamala Kendrick MD. Ordering:SONU Medrano MD
[2022-09-02 08:08] LABS: Troponin I 99 ng/L (<or=60)
[2022-09-02 12:46] LABS: PTT Activated 32.1 sec (21.5-31.9)
--- NOTE | 2022-09-02 13:00 | RT.EKG_ITS ---
APPROVED REPORT Exam: Resting ECG Reason for Exam: chest pain Patient Location: E HR:54 bpm ECG Measurements Heart Rate 54 AXIS GA 217 P 25 QRSd 144 QRS -47 QT 450 T [id number] QTc 428 Conclusion Sinus bradycardia...rate< 60 Prolonged GA interval...GA >210, V-rate 50- 90 Left bundle branch block...QRSd>120, broad/notched R
--- NOTE | 2022-09-02 13:29 | ED.PROG_ITS ---
Date of service: 09/02/22 Time of Service: 12:00 Medical Decision Making pt still pending transfer as we are waiting for bed at [facility], confirmed they will have a bed today, he is hemodynamically stable resting in the stretcher in no distress. Will continue to monitor 1600-patient signed out to me pending transfer to [facility]. No reported change in patient condition, downward trending troponin, no reported EKG changes. We will continue to monitor patient for any change in condition pending bed availability at [facility]. 164-reassessment patient and patient denies any change in condition denies any pain or discomfort. We will continue to monitor pending bed availability at [facility]. 1999-received confirmation of bed availability. EMS was contacted for transfer of patient remains on heparin drip but otherwise stable with no new complaints. 2029-bed confirmation was obtained and patient transferred to [facility] in stable condition on heparin drip. Lab Data Lab results reviewed: Yes I reviewed the patient's lab results. ECG Data Attestation: I personally reviewed and interpreted this ECG (s) as follows: Prior ECG tracings: available for review Interpretation: ekg at 1307 sinus estefania, rate of 54, no acute ischemic changes Sign Out Sign Out Data: Sign Out Comment: Chest pain/NSTEMI. Severe aortic stenosis. Currently on heparin drip. Pending transfer to [facility]. Last updated by Mitchell Parsons DO at 09/02/22 07:40 Sign Out Comment: NSTEMI, pending transfer, stable during shift, on heparin drip. Confirmed with [facility] they are still planning on having a bed for him today Last updated by Omar Freire MD at 09/02/22 14:45 Discharge Plan Disposition Patient Disposition: Transfer-Acute Inpatient Care Specific Acute Inpt Facility: [facility] Condition: Serious Discharge Details Clinical Impression: Non-ST elevation [place] (NSTEMI), Acute dyspnea Primary Care Provider: Tono Montero ED Provider: Arun Godoy Home Meds and New Rx's Prescriptions: No Action losartan 50 mg tablet 100 mg PO HS Patient Comments: TAKE 1 TABLET BY MOUTH DAILY FOR BLOOD PRESSURE aspirin [Adult Aspirin Regimen] 81 mg tablet,delayed release (DR/EC) 81 mg PO DAILY metoprolol succinate 25 mg tablet extended release 24 hr 25 mg PO .nightly Qty: 90 3RF atorvastatin 20 mg tablet 20 mg PO HS Qty: 0 0RF Patient Comments: TAKE 1 TABLET BY MOUTH DAILY AT BEDTIME albuterol sulfate 90 mcg/actuation HFA aerosol inhaler INHALATION Patient Comments: INHALE 2 PUFFS BY MOUTH EVERY 4 HOURS NEEDED psyllium husk 0.52 gram capsule PO Patient Comments: Take 1 capsule by mouth twice a day start once/day, may increase to twice a day after one month. take with glass of water bupropion HCl 150 mg tablet sustained-release 12 hr PO Patient Comments: TAKE 1 TABLET BY MOUTH ONCE DAILY FOR 3 DAYS THEN INCREASE TO TAKE ONE TABLET TWICE DAILY. START ONE WEEK BEFORE YOU QUIT SMOKING.
[2022-09-02 20:27] LABS: PTT Activated 41.7 sec (21.5-31.9)
== END 2022-09-02 20:12 | disposition short-term general hospital (02) ==
PROVIDERS: Emergency Medicine; Student in an Organized Health Care Education/Training Program; Emergency Provider Nurse Practitioner Family; PCP Family Medicine
DX: I21.4 Non-ST elevation (NSTEMI) myocardial infarction (principal); R06.00 Dyspnea, unspecified; I10 Essential (primary) hypertension; I77.810 Thoracic aortic ectasia; I70.0 Atherosclerosis of aorta; J81.1 Chronic pulmonary edema; F17.210 Nicotine dependence, cigarettes, uncomplicated; R77.8 Other specified abnormalities of plasma proteins; Z79.82 Long term (current) use of aspirin; Z20.822 Contact with and (suspected) exposure to COVID-19
CPT/HCPCS: 36415; 71275; 80053; 87635; 93005; 93308; 96374; 99291; 83880; 84484; 85025; 85610; 85730; 93010; J3490

== ENCOUNTER 2022-11-07 09:00 | Outpatient (RCR) | payer OTHER, SELFPAY | END 2022-11-07 23:59 | disposition home or self-care (01) | LOC: CR 09:00 | PROVIDERS: PCP Family Medicine; Visit Provider Internal Medicine Cardiovascular Disease | DX: Z95.2 Presence of prosthetic heart valve (principal); Z95.1 Presence of aortocoronary bypass graft; Z51.89 Encounter for other specified aftercare | CPT/HCPCS: S9472 ==

== ENCOUNTER 2022-12-08 12:37 | Outpatient (RCR) | payer OTHER, SELFPAY | END 2022-12-08 23:59 | disposition home or self-care (01) | LOC: CR 12:37 | PROVIDERS: PCP Family Medicine; Visit Provider Internal Medicine Cardiovascular Disease | DX: Z95.2 Presence of prosthetic heart valve (principal); Z51.89 Encounter for other specified aftercare | CPT/HCPCS: S9472 ==

== ENCOUNTER 2023-01-07 09:00 | Outpatient (RCR) | payer OTHER, SELFPAY | END 2023-01-08 23:59 | disposition home or self-care (01) | LOC: CR 09:00 | PROVIDERS: PCP Family Medicine; Visit Provider Internal Medicine Cardiovascular Disease | DX: Z95.2 Presence of prosthetic heart valve (principal); Z95.1 Presence of aortocoronary bypass graft; Z51.89 Encounter for other specified aftercare | CPT/HCPCS: S9472 ==

== ENCOUNTER 2023-01-13 13:26 | Outpatient (REF) | payer OTHER, SELFPAY ==
[2023-01-13 16:11] LABS: Estimated GFR 86.16 (mL/min/1.73m2)
[2023-01-14 10:07] LABS: HIV-1/2 Ag & Ab Screen Negative (Negative)
[2023-01-14 10:48] LABS: Hepatitis C Ab w Rflx HCV PCR Reactive (Negative)
[2023-01-15 12:18] LABS: HCV RNA Qualitative Undetected (Undetected)
== END 2023-01-13 13:27 | disposition home or self-care (01) ==
LOC: NCHCN 13:26
PROVIDERS: PCP Family Medicine; Visit Provider Family Medicine
DX: Z00.00 Encounter for general adult medical examination without abnormal findings (principal); I25.810 Atherosclerosis of coronary artery bypass graft(s) without angina pectoris; Z11.4 Encounter for screening for human immunodeficiency virus [HIV]; Z11.59 Encounter for screening for other viral diseases
CPT/HCPCS: 86803; 87389; 87522; 82565

== ENCOUNTER 2023-01-16 09:10 | Outpatient (RCR) | payer OTHER, SELFPAY | END 2023-02-07 23:59 | disposition home or self-care (01) | LOC: CR 09:10 | PROVIDERS: PCP Family Medicine; Visit Provider Internal Medicine Cardiovascular Disease | DX: Z95.2 Presence of prosthetic heart valve (principal); Z95.1 Presence of aortocoronary bypass graft; Z51.89 Encounter for other specified aftercare | CPT/HCPCS: S9472 ==

== ENCOUNTER → 2023-02-13 00:52 | Outpatient (CLI) | payer OTHER, SELFPAY ==
--- NOTE | 2023-02-13 | DI.CT_ITS ---
Exam(s) CT THORAX CTA EXAM: CT THORAX CTA CLINICAL HISTORY: THORACIC AORTIC ANEURYSM I71.20. TECHNIQUE: Imaging Protocol: Axial CT angiography was performed with multi-slice acquisition and mu lti-planar reconstructions as well as axial, coronal and sagittal MIP reconstructions. CONTRAST MATERIAL: Intravenous: Omnipaque 350 Contrast volume:100 ml COMPARISON: CT CT THORAX CTA from 09/02/[address] CHEST LUNG CANCER SCREEN from 01/02/2023 FINDINGS: The patient underwent aortic valve replacement between the September 02 exam and January 02 exam. This co uld account for the fluid surrounding the ascending aorta and anterior mediastinal scarring.. Pulmonary Arteries: No evidence of filling defect to suggest pulmonary emboli. Tracheobronchial tree: Patent where visualized. Mediastinum and Chantell: No dominant adenopathy or fluid collection. Pulmonary parenchyma: No consolidation or dominant measurable mass. Stable tiny left upper lobe nodul es. Stable 6 millimeter nodule left lower lobe. Pleura: No effusion or pneumothorax. Heart: The left atrium appears dilated, unchanged. The descending aorta is again noted to be ectatic . No change in diameter. Aorta: In aortic valve prosthesis is again noted. There is some fluid seen around the proximal aorta with thickness of 12 up to 12 millimeters. This appears stable from the prior exam. There is no ev idence of contrast extravasation. There is a small pericardial effusion also unchanged from prior. No dissection. Upper abdomen: Unremarkable. Bones: Sternal wires. Mild degenerative changes in the spine. IMPRESSION: Patient is status post aortic valve prosthesis. Fluid surrounding proximal aorta may be within madhuri l limits in the postoperative period. There is no evidence of dissection or active contrast extravas ation. Stable tiny pericardial effusion. RADIATION DOSE DELIVERED: 662.39mGy.cm Total DLP DATA REPOSITORY: All CT scans at this facility are submitted to the National Radiology Data Registry (NRDR) Dose Index Registry (DIR) with the [employer] (ACR). RADIATION OPTIMIZATION: All CT scans at this facility use at least one of these dose optimization te chniques: automated exposure control; mA and/or kV adjustment per patient size (includes targeted exa ms where dose is matched to clinical indication); or iterative reconstruction.
[2023-02-13 09:18] LABS: CREATININE 1.1 mg/dL (0.70-1.30); Estimated GFR 76.85 (mL/min/1.73m2)
[2023-02-13] MEDS: Omnipaque 350 MG/ML 100 ML BTL IJ (09:32)
[2023-02-13] MEDS: Normal Saline - Diluent 50 ML VIAL IJ (09:32)
[2023-02-13 09:38] LABS: INR 1.1 (0.9-1.1); Prothrombin Time 10.7 sec (9.3-11.0)
[2023-02-13] MEDS: Normal Saline Flush 10 ML SYR IVP (09:40)
== END ==
PROVIDERS: PCP Family Medicine; Visit Provider Physician Assistant
DX: Z98.890 Other specified postprocedural states (principal); Z95.2 Presence of prosthetic heart valve; I25.810 Atherosclerosis of coronary artery bypass graft(s) without angina pectoris
CPT/HCPCS: 71275; 82565; 85610; J3490

== ENCOUNTER 2023-07-03 11:19 | Day surgery (SDC) | payer OTHER, SELFPAY ==
[2023-07-03 11:30] VITALS: BP 157/103; PULSE 70; RESP 16; TEMP 36.3; O2SAT 98
[2023-07-03 11:50] VITALS: BP 157/103; PULSE 70; RESP 16; TEMP 36.3; O2SAT 98
--- NOTE | 2023-07-03 11:57 | W.ANESPRE ---
General Info Date of Service Date Performed: 07/03/23 Height: 5 ft 7 in Weight: 102.4 kg Body Mass Index (BMI): 35.3 Surgical Procedure: Operation Date: 07/03/23 12:35 Proposed Procedure Side Surgeon keely Katz MD Meds Allergies and Home Medications Allergies Allergy/AdvReac Type Severity Reaction Status Date / Time oxycodone AdvReac Intermediate Pt. states Verified 07/03/23 11:39 I feel like dog crap Home Medication Medication Instructions Recorded aspirin 81 mg tablet,delayed 81 mg PO DAILY 01/08/21 release (Adult Aspirin Regimen) bupropion HCl 150 mg tablet,12 hr 150 mg PO DAILY 09/02/22 sustained-release acetaminophen 500 mg capsule 1,000 mg PO Q6H PRN 04/09/23 amoxicillin 500 mg capsule 2,000 mg PO PRN 04/09/23 apixaban 5 mg tablet 5 mg PO BID 04/09/23 atorvastatin 40 mg tablet 80 mg PO QHS 04/09/23 losartan 25 mg tablet 25 mg PO DAILY 04/09/23 psyllium husk 0.4 gram capsule 0.4 g PO QID 04/09/23 (Fiber (psyllium husk)) spironolactone 25 mg tablet 25 mg PO DAILY 04/09/23 torsemide 10 mg tablet 10 mg PO DAILY 04/09/23 bisacodyl 5 mg tablet,delayed 5 mg PO ONCE #4 tabs 06/04/23 release (Dulcolax (bisacodyl)) canagliflozin 100 mg tablet 100 mg PO DAILY 06/04/23 (Invokana) metoprolol tartrate 25 mg tablet 25 mg PO BID 06/04/23 polyethylene glycol 3350 17 17 g PO ONCE #238 grams 06/04/23 gram/dose oral powder Current Visit Medications: Current Medications Generic Name Dose Route Start Last Admin Trade Name Freq PRN Reason Stop Dose Admin Ringer's Solution 1,000 mls @ 80 mls/hr 07/03/23 06:00 IV 08/01/23 23:59 INFUSION LEXI IV Miscellaneous Supplies 1 each 07/03/23 06:00 Iv Access IV 08/01/23 23:59 DIRECTED LEXI Sodium Chloride 0 ml 07/03/23 06:00 Normal Saline Flush 10 Ml Syr IV 08/01/23 23:59 PRN PRN Sodium Chloride 0 ml 07/03/23 06:00 Normal Saline 10 Ml Vial IJ 08/01/23 23:59 DIRECTED PRN Sterile Water 0 ml 07/03/23 06:00 Water,Injection,Sterile 10 Ml Vial IJ 08/01/23 23:59 DIRECTED PRN PFSH Active Problems Active Problems: Problem Status Onset Code Plantar fascia rupture ~09/2021 S93.699A Fracture of foot bone, left, closed 09/24/21 S92.902A Prediabetes R73.03 Ventricular ectopy I49.3 CAD (coronary artery disease) I25.10 Acute confusion R41.0 Bicuspid aortic valve Q23.1 Hyperlipidemia E78.5 HTN (hypertension) with goal to be determined I10 Alcohol use Z72.89 Smoker F17.200 Sleep apnea G47.30 Elevated fasting blood sugar R73.01 Body mass index [BMI] 34.0-34.9, adult Z68.34 NSVT (nonsustained ventricular tachycardia) I47.2 Abnormal ECG R94.31 Near syncope R55 Bradycardia R00.1 Medical History Medical History (Updated 07/03/23 @ 11:30 by Aleta Perez) Syncope ETOH abuse HTN (hypertension) JOSEPH (obstructive sleep apnea) COPD (chronic obstructive pulmonary disease) Afib Ascending aorta dilatation Mitral stenosis Diverticular disease Heart murmur Left inguinal hernia Surgical History Surgical History (Updated 07/03/23 @ 11:42 by Aleta Perez) History of hernia repair H/O aortic valve replacement Tobacco Smoking/Tobacco Use Status: Former Tobacco Use Alcohol Alcohol Intake: current Alcohol intake frequency: a few times a month Alcohol type: beer Substance Use Substance use: Never Substance use type: does not use Vital Signs and Lab Results Vital Signs Most Recent Vital Signs in EMR: Most Recent Vital Signs Temp Pulse Resp BP Pulse Ox 36.3 C L 70 16 157/103 H 98 07/03/23 11:50 07/03/23 11:50 07/03/23 11:50 07/03/23 11:50 07/03/23 11:50 Lab Results Blood Type / Crossmatch: No Data to Display Complete Blood Count: No Data to Display Complete Metabolic Panel: No Data to Display Liver Function Panel: No Data to Display Coagulation Panel: No Data to Display Cardiac Panel: No Data to Display Arterial Blood Gas: No Data to Display Venous Blood Gas: No Data to Display Pancreas Panel: No Data to Display Thyroid Panel: No Data to Display Infectious Disease: No Data to Display Blood Cultures: No Data to Display Toxicology Panel: No Data to Display Anesthesia Assessment and Plan Anesthesia History Personal History: No History of Anesthesia Complications Family History: No Family History of Anesthesia Complications Exercise Tolerance Exercise Tolerance: Metabolic Equivalents>4 Pertinent Negatives Pertinent Negatives: No Symptoms of GERD Cardiac & Pulmonary Exam Cardiac Exam: Heart Murmur Present (Systolic) Pulmonary Exam: Clear Bilateral Breath Sounds (decreased bases) Implantable Cardiac Device Does patient have a Pacemaker or an ICD?: No Airway Exam Known Difficult Airway: No Mallampati Class: 2 Mouth Opening: Normal (> 3cm) Thyromental Distance: Greater than 3 cm Facial Hair: Full Alatorre Neck Range of Motion: Full ROM Neck Circumference: Normal Teeth Condition: Normal Dentition ASA Classification ASA Score: ASA 3 Emergency Case?: No NPO Status NPO Status: NPO Clears >2 hours, Solids >8 hours Anesthesia Plan Resuscitation Status: Full Code Anesthesia Technique: General Anesthesia Airway Planned: Natural Airway Monitors Used: Standard Monitors
[2023-07-03 11:58] VITALS: BMI 35.3
[2023-07-03] MEDS: Lactated Ringers 1,000 ML 80 ML IV (12:00)
--- NOTE | 2023-07-03 12:54 | BOWEL_PTH ---
PATIENT: Conner Donnelly LOC: [facility] U#:[id number] AGE/SX: 63/M ROOM: RE07/03/[address]: Daryl Katz MD : 1960 BED: DIS: 07/03/2023 SPEC #: [id number] RECD: 07/03/23 17:00 STATUS: DILIP RE #: [id number] EMETERIO: 07/03/23 12:[address]: Daryl Katz DEPT: Surgical Specimen RECD BY: Emelina Stout ENTERED: 07/03/23 17:01 SP TYPE: Bowel OTHR DR: Tono Montero Tissues: 1 - BIOPSY BOWEL 2 - BIOPSY BOWEL Procedures: SPECIAL STAIN 2 GROSS AND MICRO LEVEL 4 IMMUNOPEROXIDASE STAIN Comments: [id number]
[2023-07-03 13:06] VITALS: BP 127/89; PULSE 68; RESP 18; TEMP 36.3; O2SAT 93
--- NOTE | 2023-07-03 13:10 | W.PM.DSUDISC ---
Date of service: 07/03/23 Time of Service: 13:10 Discharge Plan Disposition Patient Disposition: Home Condition: Good Discharge Details Reason For Visit: Screening colonoscopy Attending Provider: Daryl Katz Primary Care Provider: Tono Montero Home Meds and New Rx's Prescriptions: Continued aspirin [Adult Aspirin Regimen] 81 mg tablet,delayed release (DR/EC) 81 mg PO DAILY Invokana 100 mg tablet 100 mg PO DAILY acetaminophen 500 mg capsule 1,000 mg PO Q6H PRN amoxicillin 500 mg capsule 2,000 mg PO PRN Rx Instructions: Take 4 capsules by mouth once as needed prior to procedures atorvastatin 40 mg tablet 80 mg PO QHS losartan 25 mg tablet 25 mg PO DAILY psyllium husk [Fiber (psyllium husk)] 0.4 gram capsule 0.4 g PO QID spironolactone 25 mg tablet 25 mg PO DAILY torsemide 10 mg tablet 10 mg PO DAILY metoprolol tartrate 25 mg tablet 25 mg PO BID Rx Instructions: 1/2 tab am and pm. bupropion HCl 150 mg tablet sustained-release 12 hr 150 mg PO DAILY Patient Comments: TAKE 1 TABLET BY MOUTH ONCE DAILY FOR 3 DAYS THEN INCREASE TO TAKE ONE TABLET TWICE DAILY. START ONE WEEK BEFORE YOU QUIT SMOKING. Held apixaban 5 mg tablet 5 mg PO BID Hold Instructions: Resume on 07/04/23. Discontinued bisacodyl [Dulcolax (bisacodyl)] 5 mg tablet,delayed release (DR/EC) 5 mg PO ONCE Qty: 4 0RF Rx Instructions: Take per colonoscopy instructions provided by ordering providers office polyethylene glycol 3350 17 gram/dose powder 17 g PO ONCE Qty: 238 0RF Rx Instructions: Take per colonoscopy instructions provided by ordering providers office Discharge Instructions Instructions: Diverticulosis (ED), Diverticulosis (GEN), Colorectal Polyps (GEN) Additional Instructions: Conner, we were able to complete your colonoscopy today without any issues. You do have some internal hemorrhoids, like we talked about beforehand, they are fairly low. If you can manage these in the same style that you have been doing with success, that would be my first recommendation. If they become really problematic, we could always formally excise them with you under an anesthetic block to help provide some relief. I found 2 polyps during the colonoscopy. 1 was extremely small, the other was medium in size. Both of these were removed completely, and will be sent off for testing. You also have some diverticulosis. Diverticula are little weak spots in the muscular portion of the colon wall. They can get infected and inflamed, and patients typically have a significant amount of pain when that occurs. Often times patients are treated with antibiotics during those episodes. I have attached a little bit of information here regarding general management of diverticular disease as well as colon and rectal polyps. Once we have the results of the polyp report, my office will be in touch with recommendations for your next colonoscopy. If you have any questions in the meantime, please do not hesitate to call at any point. 1. If tolerated, consume a soft, low fiber diet for 1-2 days. 2[address] Do not drive, drink alcohol, operate machinery, make critical decisions, or do activities that require coordination or balance for 24 hours. 3. Because air was put into your colon during the procedure, expelling air from your rectum (passing gas or farting) is normal. 4. You may not have a bowel movement for 1-3 days because of the colonoscopy prep. This is normal. 5. Go directly to the emergency room if you notice any of the following: Develop chills (warm to touch), or if you have a thermometer and your temperature is above 101 Difficulty breathing or difficultly swallowing Persistent vomiting Severe abdominal pain, other than gas cramps Severe chest pain Black, tarry stools Any bleeding ? exceeding one tablespoon 6. Call your physician if the site where your intravenous was started becomes red, swollen, painful, and warm to touch. 7. Your physician has reviewed your pre-procedure medications. Please continue to take those medications as previously ordered. You will be given specific information/education regarding any changes to your medications before leaving. Activity:: Activity as Tolerated Diet:: As Tolerated DS: Diagnosis Discharge Diagnosis (1) Encounter for screening colonoscopy: Status: Acute
--- NOTE | 2023-07-03 13:17 | W.ANESPOSTOP ---
Postoperative Evaluation Date, Time and Location Date Performed: 07/03/23 Time Performed: 13:17 Patient Location: Day Surgery Unit Vital Signs Most Recent Imported Vital Signs: Most Recent Vital Signs Temp Pulse Resp BP Pulse Ox 36.3 C L 68 18 127/89 93 07/03/23 13:06 07/03/23 13:06 07/03/23 13:06 07/03/23 13:06 07/03/23 13:06 Pain Score Most Recent Pain Score: Most Recent Pain Score Pain Level 1 07/03/23 13:06 Assessment Mental Status: Awake (Alert & Oriented to Patient Baseline) Airway and Respiratory Function: Patent airway with normal (patient baseline) respiratory exam Cardiovascular Function: Hemodynamically Stable Hydration Status: Adequately Hydrated Nausea & Vomiting: No Nausea or Vomiting Pain: Pt. Denies Any Pain Peripheral Nerve Block: Patient did not receive a nerve block
--- NOTE | 2023-07-03 13:29 | COLE_ITS ---
Date of service: 07/03/23 Time of Service: 13:30 Colonoscopy Report Date of procedure: 07/03/23 Pre-op diagnosis general: Screening colonoscopy Post-op diagnosis procedure note: other (Diverticulosis, colon polyps, internal hemorrhoids) Procedure: Screening colonoscopy Surgeon: Daryl Katz Anesthesia Type: General:No Airway Pathology: other (0.75 cm polyp at 25 cm, 0.25 cm polyp also at 25 cm) Complications: None Disposition: same day Indications: Conner is 63 years old, he is here for his neck screening colonoscopy. Prep: Miralax/Dulcolax Procedure Start Time: 12:39 Procedure End Time: 13:00 Retraction Time: 11 Findings: Grade 1 internal hemorrhoids, sigmoid diverticulosis, 0.25 cm polyp at 25 cm, 0.75 cm polyp at 25 cm Procedure Description: After the induction of monitored anesthetic care, and with the patient in left lateral decubitus position, I began by performing an external anorectal exam.? Perineum and skin were normal, as was the anal verge.? There were some fibrosed perianal skin tags.? Next, I performed a digital rectal exam.? I did not appreciate any abnormal findings.? Next, I advanced a colonoscope into the rectal vault.? I performed retroflexion.? There were grade 2 internal hemorrhoids.? Using insufflation, I then advanced the colonoscope beyond the rectal folds and into the sigmoid colon before advancing towards the cecum.? There was sigmoid diverticulosis. The scope was noted to be in the cecum by identification of the ileocecal valve and appendiceal orifice.? I then began withdrawing the colonoscope using repeated irrigation as necessary for full evaluation of the colonic mucosa. Around 25 cm from the anus was a 0.75 cm pedunculated polyp. This was removed with cold snare polypectomy. Adjacent to this was another polyp that was 0.25 cm. This was flat. This was removed with cold forceps. There was minimal bleeding at both sites. ?Once the scope was withdrawn to the level of the rectum, great care was taken to examine portions of the rectal folds.? Finally, the scope was withdrawn and the patient was brought to the same-day surgery recovery unit as the anesthetic wore off. ?The findings and instructions were shared with the patient prior to discharge. [place] Bowel Prep [place] Bowel Prep Right Colon: 3 Left Colon: 3 Transverse Colon: 3 Total Score: 9
[2023-07-03 13:36] VITALS: BP 134/90; PULSE 74; RESP 16; TEMP 36.3; O2SAT 96
== END 2023-07-03 13:50 | disposition home or self-care (01) ==
PROVIDERS: PCP Family Medicine; Visit Provider Surgery
PROC: 0DJD8ZZ Inspection of Lower Intestinal Tract, Via Natural or Artificial Opening Endoscopic (ICD-10-PCS; CPT 45378; principal; 2023-07-03 12:30)
DX: Z12.11 Encounter for screening for malignant neoplasm of colon (principal); K63.5 Polyp of colon; K57.30 Diverticulosis of large intestine without perforation or abscess without bleeding; K64.0 First degree hemorrhoids; Z86.010 Personal history of colon polyps; Z95.3 Presence of xenogenic heart valve; I48.91 Unspecified atrial fibrillation; J44.9 Chronic obstructive pulmonary disease, unspecified; G47.33 Obstructive sleep apnea (adult) (pediatric); K63.89 Other specified diseases of intestine
CPT/HCPCS: 45385; 45380; 88305; 88313; 88361; J2704

== ENCOUNTER 2023-08-10 10:39 | Outpatient (REF) | payer OTHER, SELFPAY ==
[2023-08-10 15:58] LABS: Hemoglobin A1C 5.9 % (<5.7)
[2023-08-10 16:06] LABS: ALT 33 U/L (16-63); AST 18 U/L (15-37); Alkaline Phosphatase 71 U/L (46-116); Anion Gap 12.7 mmol/L (3-11); BUN 16 mg/dL (7-18); Bilirubin, Total 0.5 mg/dL (0.2-1.0); CO2 26.3 mmol/L (21.0-32.0); Calcium 8.9 mg/dL (8.5-10.1); Calculated LDL 7 mg/dL (<100); Chloride 105 mmol/L (98-107); Cholesterol 92 mg/dL (<200); Estimated GFR 85.63 (mL/min/1.73m2); Glucose 109 mg/dL (74-106); HDL Cholesterol 34 mg/dL (40-60); Potassium 4.3 mmol/L (3.5-5.1); Sodium 144 mmol/L (136-145); Total Protein 7.3 g/dL (6.4-8.2); Triglyceride 259 mg/dL (<150)
== END 2023-08-10 10:40 | disposition home or self-care (01) ==
LOC: NCHCN 10:39
PROVIDERS: PCP Family Medicine; Visit Provider Student in an Organized Health Care Education/Training Program
DX: R73.03 Prediabetes (principal); E78.5 Hyperlipidemia, unspecified; I50.9 Heart failure, unspecified
CPT/HCPCS: 80053; 80061; 83036

== ENCOUNTER 2024-02-25 10:34 | Outpatient (REF) | payer OTHER, SELFPAY ==
--- OUTSIDE RECORDS SUMMARY | 2024-02-25 10:36 | XMS_ITS | Encounter Summary ---
Author Organization [facility] Address [facility] [place] [address] Care Team Providers Care Forestry Contractor Name Role Phone Tono Montero MD Primary Care Provider [phone] Encounter Details Date Type Department Care Team (Latest Contact Info) Description 01/15/2024 Travel Social History Tobacco Use Types Packs/Day Years Used Date Smoking Tobacco: Former Cigarettes 1 45 0 08/23/1977 - 08/23/2022 e-Cigarettes Smokeless Tobacco: Never Alcohol Use Standard Drinks/Week Comments Yes 0 (1 standard drink = 0.6 oz pur e alcohol) No ETOH since 08.09.22 [facility] Inpatient Questions Answer Date Recorded Does Anyone Try to Keep You From Having Contact with Others or Doing Things Outside Your Home? unable to answer (comment required) 09/18/2022 Feels Threatened by Someone unable to an swer (comment required) 09/18/2022 Feels Unsafe at Home or Work/School unab le to answer (comment required) 09/18/2022 Physical Signs of Abuse Present no 09/18/2022 Sex and Gender Information Value Date Recorded Sex Assigned at Male 12/27/2022 9:49 AM EDT Gender Identity Male 12/27/2022 9:49 AM EDT Sexual Orientation Straight 12/27/2022 9: 49 AM EDT documented as of this encounter Plan of Treatment Not on file documented as of this encounter Visit Diagnoses Not on filedocumented in this encounter Care Teams Forestry Contractor Relationship Specialty Start Date End Date Tono Montero MD PCP - General Family Medicine 09/02/22 documented as of this encounter
--- OUTSIDE RECORDS SUMMARY | 2024-02-25 10:36 | XMS_ITS | Encounter Summary ---
Author Organization [facility] [place] [address] Care Team Providers Care Steam Box Hand Name Role Phone Tono Montero MD Primary Care Provider [phone] Reason for Visit * Reason Onset Date Comments Pre Procedure Call 05/15/2023 Encounter Details Date Type Department Care Team (Late st Contact Info) Description 05/15/2023 Telephone Cardiology at [address] [id number] Eula Goldman, RN Pre Procedure Call Social History Tobacco Use Types Packs/Day Years [...] AM EDT documented as of this encounter Miscellaneous Notes * Telephone Encounter - Eula Goldman RN - 05/15/2023 9:32 AM ESTSummary: Pre Procedure Call: Cardioversion EP RN CARDIOVERSION/DRUG LOAD CHECKLIST TC to pt to relay pre procedure instructions but unable to reach at number on file. Attempted to call 3x but call could not be completed & no opportunity to LVM. Sent instructions & questionsto Patient Portal via [employer] message. Patient Name: Conner Donnelly Patient Providers: Rainer Sparks / Jaime Garcia Date Scheduled: 05/20/23 Arrival Time/ Case Time: 9:30 am labs / 10:30 am appt / 12:00 pm CV Date Patient was Called: 05/15/23 Procedure: Cardioversion Med Instructions: DIURETIC - hold torsemide & spironolactone the AM of procedure ARB - hold losartan the AM of procedure BB/CCB - hold metoprolol the AM of procedure Anticoag Type: Eliquis (apixaban) - unable to confirm if pt taking appropriately & if any missed doses within past 21 days DM: Yes - stop Jardiance 3 days before procedure (no dose from 05/17-05/20) Coming from an assisted living facility?: No Special Considerations/Notes: Clear liquids (water, apple juice, arianna justin, black coffee/tea) OK up until 2 hrs prior to procedure. NPO after midnight. Understands that local bulk driver is needed to transport them upon discharge. documented in this encounter Plan of Treatment Not on file documented as of this encounter Visit Diagnoses Not on filedocumented in this encounter Care Teams Steam Box Hand Relationship Specialty Start Date End Date Tono Montero MD PCP - General Family Medicine 09/02/22 documented as of this encounter
--- OUTSIDE RECORDS SUMMARY | 2024-02-25 10:36 | XMS_ITS | Encounter Summary ---
Author Organization [facility] Address [facility] [place] [address] Care Team Providers Care Broadcast Meteorologist Name Role Phone Tono Montero MD Primary Care Provider [phone] Reason for Visit * Reason Comments Medication Refill Encounter Details Date Type Department Care Team (Late st Contact Info) Description 11/09/2023 Refill [place] [address] Trino Calix, LINDA [facility] [place] [address] Social History Tobacco Use Types Packs/Day Years Used Date Smoking Tobacco: Former Cigarettes 1 45 0 08/23/1977 - 08/23/2022 e-Cigarettes Smokeless Tobacco: Never Alcohol Use Standard Drinks/Week Comments Yes 0 (1 standard drink = 0.6 oz pur e alcohol) No ETOH since 08.09.22 [facility] Inpatient Questions Answer Date Recorded Does Anyone [...] on filedocumented in this encounter Care Teams Broadcast Meteorologist Relationship Specialty Start Date End Date Tono Montero MD PCP - General Family Medicine 09/02/22 documented as of this encounter
--- OUTSIDE RECORDS SUMMARY | 2024-02-25 10:36 | XMS_ITS | Encounter Summary ---
Author Organization [facility] Address [facility] [place] [address] Care Team Providers Care Methane Gas Collection System Operator Name Role Phone Tono Montero MD Primary Care Provider [phone] Reason for Visit * Reason Comments Medication Refill Encounter Details Date Type Department Care Team (Late st Contact Info) Description 09/13/2023 Refill [place] [address] Trino Calix, LINDA [facility] CARDI[facility]ORACIC [place] [address] Social History Tobacco Use Types Packs/Day Years Used Date Smoking Tobacco: Former Cigarettes 1 45 0 08/23/1977 - 08/23/2022 e-Cigarettes Smokeless Tobacco: Never Alcohol Use Standard Drinks/Week Comments Yes 0 (1 standard drink = 0.6 oz pur e alcohol) No ETOH since 08.09.22 [facility] Inpatient Questions Answer Date Recorded Does Anyone [...] on filedocumented in this encounter Care Teams Methane Gas Collection System Operator Relationship Specialty Start Date End Date Tono Montero MD PCP - General Family Medicine 09/02/22 documented as of this encounter
--- OUTSIDE RECORDS SUMMARY | 2024-02-25 10:36 | XMS_ITS | Encounter Summary ---
Author Organization [facility] Address [facility] [place] [address] Care Team Providers Care Cut Off Machine Helper Name Role Phone Tono Montero MD Primary Care Provider [phone] Encounter Details Date Type Department Care Team (Latest Contact Info) Description 05/20/2023 Travel Social History Tobacco Use Types Packs/Day [...] on filedocumented in this encounter Care Teams Cut Off Machine Helper Relationship Specialty Start Date End Date Tono Montero MD PCP - General Family Medicine 09/02/22 documented as of this encounter
--- OUTSIDE RECORDS SUMMARY | 2024-02-25 10:36 | XMS_ITS | Encounter Summary ---
Author Organization [facility] Address [facility] [place] [address] Care Team Providers Care Ophthalmology Technician Name Role Phone Tono Montero MD Primary Care Provider [phone] Reason for Referral * Diagnostic Test (Routine) - Closed Specialty Diagnoses / Procedures Referred By Contac t Referred To Contact Cardiology Diagnoses Coronary artery disease, unspecified vessel or lesion type, unspecified whether angina present, unspecified whether [place] or transplanted heart HFrEF (heart failure with reduced ejection fraction) Procedures Echocardiogram Transthoracic Gian Schuster MD [facility] [place] [address] [facility] [place] [address] Referral ID Status Reason Start Date Expiration Date V isits Requested Visits Authorized [id number] Closed Specialty Service Requested 05/20/2023 05/19/2024 1 1 Encounter Details Date Type Department Care Team (Late st Contact Info) Description 05/20/2023 9:40 AM EST Office Visit Cardiology at [address] [phone] Gian Schuster MD [facility] [place] [address] Atrial fibrillation, unspecified type; Coronary artery disease, unspecified vessel or lesion type, unspecified whether angina present, unspecified whether [place] or transplanted heart; HFrEF (heart failure with reduced ejection fraction); Atrial fibrillation, new onset; S/P AVR Social History Tobacco Use Types Packs/Day Years [...] AM EDT documented as of this encounter Last Filed Vital Signs Vital Sign Reading Time Taken Comments Blood Pressure 148/101 05/20/2023 9:28 AM EST Pulse 67 05/20/2023 9:28 AM EST Temperature - - Respiratory Rate - - Oxygen Saturation 99% 05/20/2023 9:28 AM EST Inhaled Oxygen Concentration - - Weight 106.1 kg (233 lb 12.8 oz) 05/20/2023 9:28 AM EST Height 170.2 cm (5' 7) 05/20/2023 9:28 AM EST Body Mass Index 36.62 05/20/2023 9:28 AM EST documented in this encounter Progress Notes * Gian Schuster MD - 05/20/2023 9:40 AM EST Images from the original note were not included. [facility] [place] [id number] CARDIOLOGY OUTPATIENT PROGRESS NOTE PRIMARY CARE PROVIDER: Tono Montero MD REFERRING PROVIDER: Tono Montero IDENTIFICATION: Addis Donnelly is a 63 y.o. patient who presents to clinic for follow-up. Cardiology Problem List: Severe bicuspid aortic valve stenosis and ascending aortic aneurysm s/p bioprosthetic AVR / aortic root replacement (29 mm connect composite tissue root) - 09/18/2022 CAD (pRCA 60%) s/p CABG x 1 (09/18/2022) HFrEF (LVEF 30-40% in September 2022) HTN HLD Afib, post-op SUBJECTIVE/INTERVAL HISTORY: Addis Donnelly was last seen in Cardiology on 03/04/2023. Since that visit, Addis Donnelly reports: Doing well post-surgery. No chest pain. No shortness of breath. No exertional symptoms. No edema. No PND. No orthopnea. No fever/chills. Taking medications. Has not missed any doses of his DOAC. PROBLEM LIST: Patient Active Problem List Diagnosis Atrial fibrillation, new onset S/P AVR CAD (coronary artery disease) Aortic stenosis Sleep apnea questionable, sleep center scheduled for 07/09/15 Pleuritic chest pain HTN (hypertension) MEDICATIONS: Current Outpatient Medications Medication Sig Dispense Refill empagliflozin (Jardiance) 25 mg tablet Take 25 mg by mouth daily. torsemide (Demadex) 20 mg tablet Take 1 tablet by mouth daily. (Patient taking differently: Take 10mg by mouth daily.) 30 tablet 5 apixaban (Eliquis) 5 mg tablet Take 1 tablet by mouth 2 times daily for 360 days. Indications: treatment to prevent blood clots in chronic atrial fibrillation 180 tablet 3 atorvastatin (Lipitor) 40 mg tablet Take 1 tablet by mouth every evening. While taking amiodarone then increase back to 80mg daily 30 tablet 0 losartan (Cozaar) 25 mg tablet Take 1 tablet by mouth daily. 90 tablet 0 acetaminophen (Tylenol) 500 mg tablet Take 2 tablets by mouth every 6 hours. amoxicillin (Amoxil) 500 mg capsule Take 4 capsules by mouth once as needed (Bacterial endocarditisprevention. take 30-60 min prior to procedures including dental cleanings) for up to 1 dose. 4 capsule 3 metoproloL tartrate (Lopressor) 25 mg tablet Take 1 tablet by mouth 2 times daily. (Patient taking differently: Take 25 mg by mouth 2 times daily. Decreased to 12.5 2x daily) 180 tablet 3 spironolactone (Aldactone) 25 mg tablet Take 1 tablet by mouth daily. 90 tablet 3 buPROPion SR (Wellbutrin SR) 150 mg SR 12 hr tablet TAKE 1 TABLET BY MOUTH ONCE DAILY FOR 3 DAYS THEN INCREASE TO TAKE ONE TABLET TWICE DAILY. START ONE WEEK BEFORE YOU QUIT SMOKING. psyllium seed (PSYLLIUM ORAL) Take by mouth 4 times daily. aspirin 81 mg Tablet, Delayed Release (E.C.) Take 81 mg by mouth daily. No current facility-administered medications for this visit. Family History: No family history on file. Social History: Social History Socioeconomic History Marital status: Single Spouse name: Not on file Number of children: Not on file Years of education: Not on file Highest education level: Not on file Occupational History Not on file Tobacco Use Smoking status: Former Packs/day: 1.00 Years: 45.00 Additional pack years: 0.00 Total pack years: 45.00 Types: Cigarettes, e-Cigarettes Quit date: 08/23/2022 Years since quittin.7 Smokeless tobacco: Never Vaping Use Vaping Use: Former Substance and Sexual Activity Alcohol use: Yes Types: 6 Cans of beer per week Comment: No ETOH since 08.09.22 Drug use: Never Sexual activity: Not on file Other Topics Concern Not on file Social History Narrative Not on file Social Determinants of Health Financial Resource Strain: Not on file Food Insecurity: Not on file Transportation Needs: Not on file Physical Activity: Not on file Intimate Partner Violence: Not on file Housing Stability: Not on file Objective: PHYSICAL EXAM: BP (!) 148/101 (BP Location (NBP): Left arm, Patient Position: Sitting, BP Cuff Sizes: Adult (25-34cm)) Pulse 67 Ht 170.2 cm (5' 7) Wt 106.1 kg (233 lb 12.8 oz) SpO2 99% BMI 36.62 kg/m?? , Body mass index is 36.62 kg/m??. General: Very pleasant. No distress. Skin: Warm and dry. HEENT: Anicteric sclera. Neck: JVP not elevated at 60 degrees. No HJR. No carotid bruits bilaterally. Chest: Clear to auscultation bilaterally, normal resp effort. Heart: No heave. Regularly regular rhythm. Normal S1 and S2. No gallops. No murmurs. Abdomen: Nondistended. Soft. Nontender. 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 Psych: Appropriate affect. Labs: Lab Results Component Value Date WBC 14.0 (H) 09/21/2022 HGB 10.3 (L) 09/21/2022 PLATELET 141 (L) 09/21/2022 NA 136 09/21/2022 K 4.3 09/27/2022 CL 101 09/21/2022 CO2 25 09/21/2022 BUN 22 (H) 09/21/2022 CREATININE 0.75 (L) 09/21/2022 CHLPL 105 09/03/2022 HDL 38 09/03/2022 CHOLHDL 2.8 09/03/2022 TRIG 132 09/03/2022 LDLCHOL 41 09/03/2022 Lab Results Component Value Date WBC 14.0 (H) 09/21/2022 WBC 11.6 (H) 09/19/2022 WBC 12.2 (H) 09/18/2022 HGB 10.3 (L) 09/21/2022 HGB 10.8 (L) 09/19/2022 HGB 10.2 (L) 09/18/2022 PLATELET 141 (L) 09/21/2022 PLATELET 168 09/19/2022 PLATELET 166 09/18/2022 NA 136 09/21/2022 NA 140 09/19/2022 NA 141 09/09/2022 K 4.3 09/27/2022 K 3.9 09/26/2022 K 3.9 09/25/2022 CL 101 09/21/2022 CL 107 09/19/2022 CL 104 09/09/2022 CO2 25 09/21/2022 CO2 22 09/19/2022 CO2 24 09/09/2022 BUN 22 (H) 09/21/2022 BUN 17 09/19/2022 BUN 22 (H) 09/09/2022 CREATININE 0.75 (L) 09/21/2022 CREATININE 0.88 09/19/2022 CREATININE 0.95 09/09/2022 CHLPL 105 09/03/2022 HDL 38 09/03/2022 CHOLHDL 2.8 09/03/2022 TRIG 132 09/03/2022 LDLCHOL 41 09/03/2022 ECG obtained in clinic: NSR TTE 11/12/22: The patient is s/p AVR (bioprosthesis), CABG x 1V, and ascending aorta graft. History of bicuspid valve. The left ventricle is moderately dilated with moderately reduced systolic function. The estimated LVEF is 35% with global hypokinesis and minor regional variation. Abnormal septal motion consistent with postoperative state is noted. The RV is normal in size and systolic function. There is a bioprosthesis in the aortic position which is functioning normally. Mean gradient 7mmHg. DI 0.67. Compared to the prior study 09/22/2022 there has been modest improvement in global left ventricular systolic function from a visual LVEF of 30-35% to 35% without a change in regional wall motion. Assessment and Plan: # Aortic valve replacement for severe bicuspid # Aortic root replacement # Afib # [id number] 2 # HFrEF # ASCVD s/p [id number] Presented for DCCV but patient notable in sinus rhythm. DCCV canceled. Continue BB and DOAC. No clinical evidence of heart failure. Continue GDMT (BB, ARB, SGLT2i, torsemide, MRA). Maintain euvolemia. Follow-up labs today. Echo in 6 months. No need for ischemic testing at this time. Doing well. Return to clinic in: 6 months or sooner if needed. All questions answered. Strict return precautions given. Thank you for the opportunity to participate in this patient's cardiovascular care. All questions were answered and I look forward to the next visit. Gian Schuster MD [facility] Cardiology, [facility] documented in this encounter Plan of Treatment Scheduled Orders Name Type Priority Associated Diagnoses Orde r Schedule pro-Brain Natriuretic Peptide Lab Routine Coronary artery disease, unspecified vessel or lesion type, unspecified whether angina present, unspecified whether [place] or transplanted heart HFrEF (heart failure with reduced ejection fraction) Atrial fibrillation, new onset Expected: 05/23/2023, Expires: 05/19/2024 Comprehensive metabolic panel (non-fasting) Lab Routine Coronary artery disease, unspecified vessel or lesion type, unspecified whether angina present, unspecified whether [place] or transplanted heart HFrEF (heart failure with reduced ejection fraction) Atrial fibrillation, new onset Expected: 05/20/2023, Expires: 05/19/2024 CBC (with Diff) Lab Routine Coronary artery disease, unspecified vessel or lesion type, unspecified whether angina present, unspecified whether [place] or transplanted heart HFrEF (heart failure with reduced ejection fraction) Atrial fibrillation, new onset Expected: 05/20/2023, Expires: 05/19/2024 documented as of this encounter Results * ECHO COMPLETE (05/20/2023 11:34 AM EST) Anatomical Region Laterality Modality Cardiac Other 05/20/2023 10:2 5 AM EST Narrative 05/20/2023 11:50 AM EST [address] [place] [address] ? Echocardiogram Report Name: ADDIS DONNELLY ?Study Date: 05/20/2023 10:25 AMBP: 148/101 mmHg ? Patient Location: 4A : 1960 ? Height: 170 cm ? Account: [id number] Age: 63 yrs ? Weight: 106 kg Gender: Male ?BSA: 2.2 m2 Ordering Physician: GIAN SCHUSTER Referring Physician: GIAN SCHUSTER Performed By: Lucy Lezama RDCS Reason For Study: Coronary artery disease, HFrEF (heart failure with reduced ejection fraction) Exam Location: [facility]. Interpretation Summary -Left ventricular systolic function is normal. Left ventricular ejection fraction is estimated visually at 55%. There is abnormal septal motion post sternotomy. There is hypokinesis of the inferior wall. -The right ventricle is of normal size. Right ventricular systolic function is normal. Pulmonary artery hypertension could not be assessed due to inadequate tricuspid regurgitation jet. -An aortic bioprosthetic valve is functioning normally. -The aortic root is dilated (4.3 cm). -Compared with the previous echo performed on 11/12/22, the ejection fraction has significantly improved. See report for additional findings. Procedure Complete-[id number]. Satisfactory quality. Left Ventricle Left ventricle is of normal size. Wall thickness is moderately increased. Severely increased thickness of the basal septum with no obstruction to LV outflow. There is no ventricular septal defect. Left ventricular systolic function is normal. Left ventricular ejection fraction is estimated visually at 55%. There is abnormal septal motion post sternotomy. There is hypokinesis of the inferior wall. Right Ventricle The right ventricle is of normal size. Right ventricular systolic function is normal. Left Atrium The left atrium is normal. No abnormality of the interatrial septum is identified. Right Atrium The right atrium is moderately dilated. Aortic Valve There is a bioprosthetic valve in the aortic position. The date or year of insertion is 09/18/2022. 29mm. The peak gradient across the prosthesis is 14 mmHg. The mean gradient across the prosthesis is 8 mmHg. There appears to be trace intravalvular regurgitation. There appears to be no paravalvular regurgitation. The aortic prosthetic valve appears to be functioning normally. Mitral Valve The mitral valve leaflets are thickened. There is no mitral stenosis. There is mild mitral regurgitation. Tricuspid Valve The tricuspid valve is structurally normal. There is mild tricuspid regurgitation. Pulmonic Valve The pulmonic valve appears to be structurally normal. There is mild pulmonic valve regurgitation. Great Arteries The aortic root is dilated. The diameter at the level of the sinuses of Valsalva is 4.3 cm. Ascending aorta is normal in size. The maximum diameter of the proximal ascending aorta is 3.3 cm. The pulmonary artery is not well visualized. Venous Inferior vena cava is normal in size. Inferior vena cava collapse greater than 50% with respiration. Pericardium/Pleural There is no pericardial effusion. Hemodynamics Pulmonary artery hypertension could not be assessed due to inadequate tricuspid regurgitation jet. The estimated right atrial pressure is 3mmHg. Left ventricular diastolic function is normal. Left ventricular filling pressure is normal. ? 2D Measurements ? Volumes ?IVSd: 2.5 cm ? LAV(MOD-bp) Indexed: ?LVIDd: 4.7 cm ?LVIDs: 3.6 cm ?31.6 ml/m2 ?LVPWd: 1.7 cm ?RA A4Cs_phl: 28.1 cm2 ? SV(LVOT): 118.8 ml ?LV mass(C)d: 499.4 grams ?LV mass(C)dI: 231.1 grams/m2 ?? SI(LVOT): 55.0 ml/m2 ?Ao root diam: 4.3 cm ?Ao root diam index: 2.0 ?asc Aorta Diam: 3.3 cm ?LVOT diam: 2.6 cm ?TAPSE_phl: 1.6 cm Doppler LV V1 VTI: 22.4 cm Ao V2 VTI: 34.7 cm Ao Max: 188.9 cm/sec Ao valve max: 14.3 mmHg Ao valve mean: 7.6 mmHg MV E max bret: 67.1 cm/sec MV A max bret: 51.4 cm/sec MV E/A: 1.3 MV dec time: 0.22 sec Lat Peak E' Bret: 15.4 cm/sec E/ e' (lat): 4.3 Med Peak E' Bret: 8.4 cm/sec E/e' (med): 8.0 E/e' Average: 6.2 FINA(I,D): 3.4 cm2 Dimensionless index Aov: 0.65 I ?WMSI = 1.06 ? % Normal = 94 ?Segments ??Size X - Cannot ?2 - ?4 - ?1-2 ? small Interpret ?1 - Normal ?? Hypokinetic 3 - Akinetic Dyskinetic ?? 3-5 ? moderate 5 - ? 6-14 ?large Aneurysmal ?15-16 ?? diffuse Procedure Note Brody Russell MD - 05/20/2023 [address] [place] [address] Echocardiogram Report Name: ADDIS DONNELLY Study Date: 0:25 AMBP: 148/101 mmHg Patient Location: : 1960 Height: 170 cm Account: [id number] Age: 63 yrs Weight: 106 kg Gender: Male BSA: 2.2 m2 Ordering Physician: GIAN SCHUSTER Referring Physician: GIAN SCHUSTER Performed By: Lucy Lezama RDCS Reason For Study: Coronary artery disease, HFrEF (heart failure withreduced ejection fraction) Exam Location: [facility]. Interpretation Summary -Left ventricular systolic function is normal. Left ventricular ejectionfraction is estimated visually at 55%. There is abnormal septal motion poststernotomy. There is hypokinesis of the inferior wall. -The right ventricle is of normal size. Right ventricular systolicfunction is normal. Pulmonary artery hypertension could not be assessed due toinadequate tricuspid regurgitation jet. -An aortic bioprosthetic valve is functioning normally. -The aortic root is dilated (4.3 cm). -Compared with the previous echo performed on 11/12/22, the ejectionfraction has significantly improved. See report for additional findings. Procedure Complete-[id number]. Satisfactory quality. Left Ventricle Left ventricle is of normal size. Wall thickness is moderately increased.Severely increased thickness of the basal septum with no obstruction to LV outflow.There is no ventricular septal defect. Left ventricular systolic function isnormal. Left ventricular ejection fraction is estimated visually at 55%. There isabnormal septal motion post sternotomy. There is hypokinesis of the inferiorwall. Right Ventricle The right ventricle is of normal size. Right ventricular systolic functionis normal. Left Atrium The left atrium is normal. No abnormality of the interatrial septum isidentified. Right Atrium The right atrium is moderately dilated. Aortic Valve There is a bioprosthetic valve in the aortic position. The date or yearof insertion is 09/18/2022. 29mm. The peak gradient across the prosthesis is14 mmHg. The mean gradient across the prosthesis is 8 mmHg. There appears to betrace intravalvular regurgitation. There appears to be no paravalvularregurgitation. The aortic prosthetic valve appears to be functioning normally. Mitral Valve The mitral valve leaflets are thickened. There is no mitral stenosis.There is mild mitral regurgitation. Tricuspid Valve The tricuspid valve is structurally normal. There is mild tricuspidregurgitation. Pulmonic Valve The pulmonic valve appears to be structurally normal. There is mildpulmonic valve regurgitation. Great Arteries The aortic root is dilated. The diameter at the level of the sinuses ofValsalva is 4.3 cm. Ascending aorta is normal in size. The maximum diameter of theproximal ascending aorta is 3.3 cm. The pulmonary artery is not well visualized. Venous Inferior vena cava is normal in size. Inferior vena cava collapse greaterthan 50% with respiration. Pericardium/Pleural There is no pericardial effusion. Hemodynamics Pulmonary artery hypertension could not be assessed due to inadequatetricuspid regurgitation jet. The estimated right atrial pressure is 3mmHg. Leftventricular diastolic function is normal. Left ventricular filling pressure isnormal. 2D Measurements Volumes IVSd: 2.5 cm LAV(MOD-bp)Indexed: LVIDd: 4.7 cm LVIDs: 3.6 cm 31.6 ml/m2 LVPWd: 1.7 cm RA A4Cs_phl: 28.1cm2 SV(LVOT): 118.8ml LV mass(C)d: 499.4 grams LV mass(C)dI: 231.1 grams/m2 SI(LVOT): 55.0ml/m2 Ao root diam: 4.3 cm Ao root diam index: 2.0 asc Aorta Diam: 3.3 cm LVOT diam: 2.6 cm TAPSE_phl: 1.6 cm Doppler LV V1 VTI: 22.4 cm Ao V2 VTI: 34.7 cm Ao Max: 188.9 cm/sec Ao valve max: 14.3 mmHg Ao valve mean: 7.6 mmHg MV E max bret: 67.1 cm/sec MV A max bret: 51.4 cm/sec MV E/A: 1.3 MV dec time: 0.22 sec Lat Peak E' Bret: 15.4 cm/sec E/ e' (lat): 4.3 Med Peak E' Bret: 8.4 cm/sec E/e' (med): 8.0 E/e' Average: 6.2 FINA(I,D): 3.4 cm2 Dimensionless index Aov: 0.65 I WMSI = 1.06 % Normal = 94 SegmentsSize X - Cannot 2 - 4 - 1-2small Interpret 1 - Normal Hypokinetic 3 - Akinetic Dyskinetic 3-5moderate 5 - 6-14large Aneurysmal 15-16diffuse Gian Schuster MD ECHO ORDERABLES * TSH (05/20/2023 11:22 AM EST) Thyroid Stimulating Hormone 0.73 0.27 - 4.20 mcIU/mL [facility] Comment: Reference Interval (mcIU/mL): Females: ??First Trimester: 0.23-3.88 ??Second Trimester: 0.22-3.90 ??Third Trimester: 0.44-4.66 Blood 05/20/2023 11:2 2 AM EST 05/20/2023 11:28 AM EST Narrative Resulting Agency Comment Spec In Lab Gian Schuster MD CHEMISTRY ORDERABLES Performing Organization Address [facility] Co de Phone Number [facility] [place] [address] * CRP, cardiac risk (HS CRP) (05/20/2023 11:22 AM EST) C-Reactive Protein High Sensitivity 1.0 mg/L [facility] Comment: For cardiac risk assessment, two values (fasting or nonfasting sample acceptable) taken at least 2 weeks apart, should be averaged to provide a more reliable estimate of marker level. This laboratory will be using the recommendations from the AHA/CDC Scientific Statement for interpretations of future risks of cardiovascular events: ?<1.0 mg/L: low risk ?1.0 to 3.0 mg/L: moderate risk ?>3.0 mg/L: high risk ?>10.0 mg/L: Acute Inflammation Note: CRP values >10 mg/L indicate an acute inflammatory condition or infection. The >10 mg/L value should not be used for cardiac risk assessment and a repeat specimen should be collected at least two weeks after resolution of the acute inflammatory condition. References: 1. Roxy HARRIS et. al. ??AHA/CDC Scientific Statement: Markers of Inflammation and Cardiovascular Disease. ??Circulation 2003; 107:499-511 2. Keturah PM. ??Clinical applications of C-reactive protein for cardiovascular disease detection and prevention. ??Circulation 2003; 107:363-369 CRP Cardiac Risk Moderate Risk [facility] Blood 05/20/2023 11:2 2 AM EST 05/20/2023 11:28 AM EST Narrative Resulting Agency Comment Spec In Lab Gian Schuster MD CHEMISTRY ORDERABLES Performing Organization Address [facility] Co de Phone Number [facility] [place] [address] * Lipid Panel (Reflex Direct LDL) (05/20/2023 11:22 AM EST) Cholesterol, Total 96 mg/dL [facility] Comment: Lower Risk: <200 mg/dL Average Risk: 200-239 mg/dL Higher Risk: >oj=938 mg/dL Triglyceride 192 mg/dL [facility] Comment: Average Risk/Lower Risk: <150 mg/dL Borderline High Risk: 150-199 mg/dL High Risk: 200-499 mg/dL Very High Risk: >mn=063 mg/dL HDL Cholesterol 35 mg/dL [facility] Comment: Males: ?? Higher Risk: <40 mg/dL Females: ?? Higher Risk: <50 mg/dL LDL Cholesterol 23 mg/dL [facility] Comment: Lowest Risk: <100 mg/dL Lower Risk: 100-129 mg/dL Borderline High Risk: 130-159 mg/dL High Risk: 160-189 mg/dL Very High Risk: >qo=244 mg/dL Cholesterol/HDL Ratio 2.7 ratio [facility] Lipid Interpretation See Note [facility] Comment: Lipid management should be guided by a patient? s ASCVD risk, goals and preferences. ACC/AHA Guidelines recommend high intensity statin if clinical ASCVD or LDL greater than or equal to 190 mg/dL. http://Raynforest.com/DFB-DEE-Hyfcppqba Adults aged 40-75 with LDL 70-189 mg/dL should have their 10 year ASCVD risk estimated with the ACC/AHA ASCVD risk financial intern http://tools.acc.org/FFYAV-Ucpx-Cuabszqpd/ Statin should be discussed if risk greater than or equal to 7.5% in non-diabetics. With diabetes, moderate intensity statin is recommended if risk less than 7.5%, high intensity if risk greater than or equal to 7.5%. Annual lipid monitoring on statins is not necessary. Evaluate secondary causes of Triglycerides greater than 500 mg/dL or LDL greater than 190 mg/dL: See table 6 of ACC/AHA Guideline. Lifestyle modification is a critical component of ASCVD risk reduction. Blood 05/20/2023 11:2 2 AM EST 05/20/2023 11:28 AM EST Narrative Resulting Agency Comment Spec In Lab Gian Schuster MD CHEMISTRY ORDERABLES [facility] [place] [address] documented in this encounter Visit Diagnoses Diagnosis Atrial fibrillation, unspecified type Coronary artery disease, unspecified vessel or lesion type, unspecified whether angina present, unspecified whether [place] or transplanted heart HFrEF (heart failure with reduced ejection fraction) S/P AVR Heart valve replaced by other means Coronary artery disease, unspecified vessel or lesion type, unspecified whether angina present, unspecified whether [place] or transplanted heart HFrEF (heart failure with reduced ejection fraction) documented in this encounter Care Teams Ophthalmology Technician Relationship Specialty Start Date End Date Tono Montero MD PCP - General Family Medicine 09/02/22 documented as of this encounter
--- OUTSIDE RECORDS SUMMARY | 2024-02-25 10:36 | XMS_ITS | Encounter Summary ---
Author Organization [facility]ly [facility] Address [facility] [place] [address] Care Team Providers Care Compliance Examiner Name Role Phone Tono Montero MD Primary Care Provider [phone] Reason for Visit * Reason Comments Medication Refill Encounter Details Date Type Department Care Team (Late st Contact Info) Description 01/12/2024 Refill Cardiology at [address] [address] Prabhjot Schuster MD [facility] [address] Medication Refill Social History Tobacco Use Types Packs/Day Years [...] documented as of this encounter Visit Diagnoses Diagnosis Coronary artery disease, unspecified vessel or lesion type, unspecified whether angina present, unspecified whether [place] or transplanted heart documented in this encounter Care Teams Compliance Examiner Relationship Specialty Start Date End Date Tono Montero MD PCP - General Family Medicine 09/02/22 documented as of this encounter
--- OUTSIDE RECORDS SUMMARY | 2024-02-25 10:36 | XMS_ITS | Encounter Summary ---
Author Organization [facility] Address [facility] [place] [address] Care Team Providers Care Van Driver Name Role Phone Tono Montero MD Primary Care Provider [phone] Encounter Details Date Type Department Care Team (Latest Contact Info) Description 05/13/2023 Travel Social History Tobacco Use Types Packs/Day [...] on filedocumented in this encounter Care Teams Van Driver Relationship Specialty Start Date End Date Tono Montero MD PCP - General Family Medicine 09/02/22 documented as of this encounter
--- OUTSIDE RECORDS SUMMARY | 2024-02-25 10:36 | XMS_ITS | Encounter Summary ---
Author Organization [facility] Address [facility] [place] [address] Care Team Providers Care Operations Research Director Name Role Phone Tono Montero MD Primary Care Provider [phone] Reason for Visit * Reason Comments Medication Refill Encounter Details Date Type Department Care Team (Late st Contact Info) Description 11/09/2023 Refill Cardiology at [address] [address] Prabhjot Schuster MD [facility] [place] [address] Medication Refill Social History Tobacco Use Types [...] type, unspecified whether angina present, unspecified whether [place] or transplanted heart- Primary documented in this encounter Care Teams Operations Research Director Relationship Specialty Start Date End Date Tono Montero MD PCP - General Family Medicine 09/02/22 documented as of this encounter
--- OUTSIDE RECORDS SUMMARY | 2024-02-25 10:36 | XMS_ITS | Encounter Summary ---
Author Organization [facility] [place] [address] Care Team Providers Care Real Estate Sales Supervisor Name Role Phone Tono Montero MD Primary Care Provider [phone] Reason for Referral * Diagnostic Test (Routine) - Closed Specialty Diagnoses / Procedures Referred By Mounika t Referred To Contact Cardiology Diagnoses Coronary artery disease, unspecified vessel or lesion type, unspecified whether angina present, unspecified whether [place] or transplanted heart HFrEF (heart failure with reduced ejection fraction) Procedures Echocardiogram Transthoracic Gian Schuster MD [facility] [place] [address] [facility] [place] [address] Referral ID Status Reason Start Date Expiration Date V isits Requested Visits Authorized [id number] Closed Specialty Service Requested 05/20/2023 05/19/2024 1 1 Reason for Visit * Diagnostic Test (Routine) - Closed Specialty Diagnoses / Procedures Referred By Contbernadette t Referred To Contact Cardiology Diagnoses Coronary artery disease, unspecified vessel or lesion type, unspecified whether angina present, unspecified whether [place] or transplanted heart HFrEF (heart failure with reduced ejection fraction) Procedures Echocardiogram Transthoracic Gian Schuster MD [facility] [place] [address] [facility] [place] [address] Referral ID Status Reason Start Date Expiration Date V isits Requested Visits Authorized [id number] Closed Specialty Service Requested 05/20/2023 05/19/2024 1 1 Encounter Details Date Type Department Care Team (Latest Contact Info) Description 05/20/2023 10:17 AM EST - 05/20/2023 11:59 PM EST Hospital Encounter Non[place] [id number] Gian Schuster MD [facility] [place] [address] Coronary artery disease, unspecified vessel or lesion type, unspecified whether angina present, unspecified whether [place] or transplanted heart; HFrEF (heart failure with reduced ejection fraction) Discharge Disposition: Home Social History Tobacco Use Types Packs/Day Years [...] AM EDT documented as of this encounter Medications at Time of Discharge Medication Sig Dispensed Refills Start Date End Date canagliflozin (Invokana) 100 mg tablet Take 100 mg by mouth daily. atorvastatin (Lipitor) 40 mg tablet Take 1 tablet by mouth every evening. While taking amiodarone then increase back to 80mg daily 30 tablet 09/27/2022 losartan (Cozaar) 25 mg tablet Take 1 tablet by mouth daily. 90 tablet 09/27/2022 acetaminophen (Tylenol) 500 mg tablet Take 2 tablets by mouth every 6 hours. 09/27/2022 amoxicillin (Amoxil) 500 mg capsule Take 4 capsules by mouth once as needed (Bacterial endocarditis prevention. take 30-60 min prior to procedures including dental cleanings) for up to 1 dose. 4 capsule 3 09/27/2022 metoproloL tartrate (Lopressor) 25 mg tablet Take 1 tablet by mouth 2 times daily. 180 tablet 3 09/27/2022 buPROPion SR (Wellbutrin SR) 150 mg SR 12 hr tablet Take 150 mg by mouth daily. 08/13/2022 psyllium seed (PSYLLIUM ORAL) Take by mouth 4 times daily. aspirin 81 mg Tablet, Delayed Release (E.C.) Take 81 mg by mouth daily. torsemide (Demadex) 20 mg tablet Take 1 tablet by mouth daily. 30 tablet 5 12/29/2022 11/09/2023 apixaban (Eliquis) 5 mg tabletIndications:preve nt thromboembolism in chronic atrial fibrillation Take 1 tablet by mouth 2 times daily for 360 days. Indications: treatment to prevent blood clots in chronic atrial fibrillation 180 tablet 3 10/14/2022 10/06/2023 spironolactone (Aldactone) 25 mg tablet Take 1 tablet by mouth daily. 90 tablet 3 09/28/2022 09/16/2023 documented as of this encounter Plan of Treatment Not on file documented as of this encounter Procedures Procedure Name Priority Date/Time Associated Diagnosis Comments ECHO COMPLETE Routine 05/20/2023 11:34 AM EST Coronary artery disease, unspecified vessel or lesion type, unspecified whether angina present, unspecified whether [place] or transplanted heart HFrEF (heart failure with reduced ejection fraction) documented in this encounter Results * ECHO COMPLETE (05/20/2023 11:34 AM EST) Anatomical Region Laterality Modality Cardiac Other 05/20/2023 10:2 5 AM EST Narrative 05/20/2023 11:50 AM EST [address] [place] [address] ? Echocardiogram Report Name: ADDIS DONNELLY ?Study Date: 05/20/2023 10:25 AMBP: 148/101 mmHg ? [facility] 1960 [facility]: 170 [facility] ? Account: [id number] Age: 63 yrs ? Weight: 106 kg Gender: Male ?BSA: 2.2 m2 Ordering Physician: GIAN SCHUSTER Referring Physician: GIAN SCHUSTER Performed By: Lucy Lezama RDCS Reason For Study: Coronary artery disease, HFrEF (heart failure with reduced ejection fraction) Exam Location: [facility]. Interpretation Summary -Left ventricular systolic function is [...] improved. See report for additional findings. Procedure Complete-[id number]. Satisfactory quality. Left Ventricle Left ventricle is [...] Note Brody Russell MD - 05/20/2023 [address] [place] [address] Echocardiogram Report Name: YULIANA ADDIS Linsey Study Date: 0:25 AMBP: 148/101 mmHg Patient Location: 4A : 1960 Height: 170 cm Account: [id number] Age: 63 yrs Weight: 106 kg Gender: Male BSA: 2.2 m2 Ordering Physician: GIAN SCHUSTER Referring Physician: GIAN SCHUSTER Performed By: Lucy Lezama RDCS Reason For Study: Coronary artery disease, HFrEF (heart failure withreduced ejection fraction) Exam Location: [facility]. Interpretation Summary -Left ventricular systolic function is [...] improved. See report for additional findings. Procedure Complete-[id number]. Satisfactory quality. Left Ventricle Left ventricle is [...] Aneurysmal 15-16diffuse Gian Schuster MD ECHO ORDERABLES documented in this encounter Visit Diagnoses Diagnosis Coronary artery disease, unspecified vessel or lesion type, unspecified whether angina present, unspecified whether [place] or transplanted heart HFrEF (heart failure with reduced ejection fraction) documented in this encounter Care Teams Real Estate Sales Supervisor Relationship Specialty Start Date End Date Tono Montero MD PCP - General Family Medicine 09/02/22 documented as of this encounter
--- OUTSIDE RECORDS SUMMARY | 2024-02-25 10:36 | XMS_ITS | Encounter Summary ---
Author Organization [facility] Address [facility] [place] [address] Care Team Providers Care Site Leader Name Role Phone Tono Montero MD Primary Care Provider [phone] Reason for Visit * Reason Onset Date Comments Medication Refill 09/16/2023 Encounter Details Date Type Department Care Team (Late st Contact Info) Description 09/16/2023 Refill Cardiology at [address] [address] Prabhjot Schuster MD [facility] [place] [address] Medication Refill Social History Tobacco Use Types [...] as of this encounter Visit Diagnoses Diagnosis Hypertension, unspecified type- Primary Coronary artery disease, unspecified vessel or lesion type, unspecified whether angina present, unspecified whether [place] or transplanted heart documented in this encounter Care Teams Site Leader Relationship Specialty Start Date End Date Tono Montero MD PCP - General Family Medicine 09/02/22 documented as of this encounter
--- OUTSIDE RECORDS SUMMARY | 2024-02-25 10:36 | XMS_ITS | Encounter Summary ---
[place] [address] Care Team Providers Care Sales And Service Technician Name Role Phone Tono Montero MD Primary Care Provider [phone] Encounter Details Date Type Department Care Team (Latest Contact Info) Description 05/20/2023 11:30 AM EST Laboratory Appointment Lab [address] [place] [id number] Atrial fibrillation, new onset; S/P aorta repair; Coronary artery disease, unspecified vessel or lesion type, unspecified whether angina present, unspecified whether [place] or transplanted heart; HFrEF (heart failure with reduced ejection fraction) Social History Tobacco Use Types Packs/Day Years Used Date Smoking Tobacco: Former Cigarettes 1 45 0 08/23/1977 - 08/23/2022 e-Cigarettes Smokeless Tobacco: Never Alcohol Use Standard Drinks/Week Comments Yes 0 (1 standard drink = 0.6 oz pur e alcohol) No ETOH since 4.06.02 IPV Inpatient Questions Answer Date Recorded Does [...] Procedure Name Priority Date/Time Associated Diagnosis Comments HEMOGRAM Routine 05/20/2023 11:22 AM EST Coronary artery disease, unspecified vessel or lesion type, unspecified whether angina present, unspecified whether [place] or transplanted heart Atrial fibrillation, new onset DIFFERENTIAL, AUTOMATED Routine 05/20/2023 11:22 AM EST Coronary artery disease, unspecified vessel or lesion type, unspecified whether angina present, unspecified whether [place] or transplanted heart Atrial fibrillation, new onset CREATININE Routine 05/20/2023 11:22 AM EST S/P aorta repair CBC (WITH DIFF) Routine 05/20/2023 11:22 AM EST Coronary artery disease, unspecified vessel or lesion type, unspecified whether angina present, unspecified whether [place] or transplanted heart Atrial fibrillation, new onset CRP, CARDIAC RISK (HS CRP) Routine 05/20/2023 11:22 AM EST Coronary artery disease, unspecified vessel or lesion type, unspecified whether angina present, unspecified whether [place] or transplanted heart HFrEF (heart failure with reduced ejection fraction) Atrial fibrillation, new onset TSH Routine 05/20/2023 11:22 AM EST Coronary artery disease, unspecified vessel or lesion type, unspecified whether angina present, unspecified whether [place] or transplanted heart HFrEF (heart failure with reduced ejection fraction) Atrial fibrillation, new onset PRO-BRAIN NATRIURETIC PEPTIDE Routine 05/20/2023 11:22 AM EST Coronary artery disease, unspecified vessel or lesion type, unspecified whether angina present, unspecified whether [place] or transplanted heart Atrial fibrillation, new onset LIPID PANEL (REFLEX DIRECT LDL) Routine 05/20/2023 11:22 AM EST Coronary artery disease, unspecified vessel or lesion type, unspecified whether angina present, unspecified whether [place] or transplanted heart HFrEF (heart failure with reduced ejection fraction) Atrial fibrillation, new onset COMPREHENSIVE METABOLIC PANEL Routine 05/20/2023 11:22 AM EST Coronary artery disease, unspecified vessel or lesion type, unspecified whether angina present, unspecified whether [place] or transplanted heart Atrial fibrillation, new onset BASIC METABOLIC PANEL Routine 05/20/2023 11:22 AM EST Atrial fibrillation, new onset documented in this encounter Results * Differential, Automated (05/20/2023 11:22 AM EST) Neutrophil % 51.3 % [facility] Neutrophil Absolute 4.43 1.70 - 6.10 x10(3)/[facility] Lymph % 35.1 % [facility] Lymphocytes Abs 3.0 0.9 - 3.2 x10(3)/[facility] Monocyte % 9.1 % [facility] Monocyte Abs 0.8 0.3 - 0.9 x10(3)/[facility] Eos % 3.4 % [facility] Eosinophils Abs 0.3 0.0 - 0.4 x10(3)/[facility] Basophil % 0.9 % [facility] Baso Absolute 0.1 0.0 - 0.1 x10(3)/[facility] Immature Gran % 0.20 % [facility] Comment: Immature granulocytes(IG's)percentage and absolute count will include metamyelocytes, myelocytes, and promyelocytes. Blood smears from CBCs yielding IG's will be scanned manually for concordance. If this scan disagrees with the automated IG or if promyelocytes are noted, a manual differential will be performed. Immature Gran Absolute 0.02 0.00 - 0.04 x10(3)/[facility] Blood 05/20/2023 11:2 2 AM EST 05/20/2023 11:29 AM EST Narrative Resulting Agency Comment Spec In Lab Prabhjot Schuster MD HEMATOLOGY ORDERABLE S [facility] [place] [address] * Hemogram (05/20/2023 11:22 AM EST) White Blood Cell 8.6 4.0 - 9.5 x10(3)/[facility] Red Blood Cell 4.92 4.58 - 5.54 x10(6)/[facility] Hemoglobin 14.8 13.7 - 16.5 g/dL [facility] Hematocrit 45.2 40.5 - 48.5 % [facility] Mean Cell Volume 91.9 82.9 - 93.1 fL [facility] Mean Cell Hemoglobin 30.1 27.5 - 32.1 pg [facility] Mean Cell Hemoglobin Concentration 32.7 32.0 - 35.7 g/dL [facility] Platelet 194 145 - 357 x10(3)/[facility] RDW Standard Deviation 42.2 36.0 - 45.0 fL [facility] RDW coefficient of variation 12.4 11.4 - 13.8 % [facility] Mean Platelet Volume 9.3 7.6 - 12.9 fL [facility] NRBC% auto 0.0 % [facility] NRBC Absolute 0.000 0.000 - 0.000 x10(3)/[facility] Blood 05/20/2023 11:2 2 AM EST 05/20/2023 11:29 AM EST Narrative Resulting Agency Comment Spec In Lab Prabhjot Schuster MD HEMATOLOGY ORDERABLE S Performing Organization Address City/State/[facility] Co de Phone Number [facility] [place] [address] * Lipid Panel (Reflex Direct LDL) (05/20/2023 11:22 AM EST) Cholesterol, Total 96 mg/dL [facility] Comment: Lower Risk: <200 mg/dL Average Risk: 200-239 mg/dL Higher Risk: >zi=171 mg/dL Triglyceride 192 mg/dL [facility] Comment: Average Risk/Lower Risk: <150 mg/dL Borderline High Risk: 150-199 mg/dL High Risk: 200-499 mg/dL Very High Risk: >xa=176 mg/dL HDL Cholesterol 35 mg/dL [facility] Comment: Males: ?? Higher Risk: <40 mg/dL Females: ?? Higher Risk: <50 mg/dL LDL Cholesterol 23 mg/dL [facility] Comment: Lowest Risk: <100 mg/dL Lower Risk: 100-129 mg/dL Borderline High Risk: 130-159 mg/dL High Risk: 160-189 mg/dL Very High Risk: >hi=116 mg/dL Cholesterol/HDL Ratio 2.7 ratio [facility] Lipid Interpretation See Note [facility] Comment: Lipid management should be guided by a patient? s ASCVD risk, goals and preferences. ACC/AHA Guidelines recommend high intensity statin if clinical ASCVD or LDL greater than or equal to 190 mg/dL. http://[employer] Mail.com/URH-ZQG-Lrymhlbxz Adults aged 40-75 with LDL 70-189 mg/dL should have their 10 year ASCVD risk estimated with the ACC/AHA ASCVD risk pipe connector http://tools.acc.org/WNNXD-Xnsp-Bxemhoijd/ Statin should be discussed if risk greater [...] Narrative Resulting Agency Comment Spec In Lab Prabhjot Schuster MD CHEMISTRY ORDERABLES [facility] [place] [address] * CRP, cardiac risk (HS CRP) (05/20/2023 11:22 AM EST) C-Reactive Protein High Sensitivity 1.0 mg/L [facility] Comment: For cardiac risk [...] 2003; 107:[id number] CRP Cardiac Risk Moderate Risk [facility] Blood 05/20/2023 11:2 2 AM EST 05/20/2023 11:28 AM EST Narrative Resulting Agency Comment Spec In Lab Prabhjot Schuster MD CHEMISTRY ORDERABLES Performing Organization Address [facility] Co de Phone Number [facility] [place] [address] * TSH (05/20/2023 11:22 AM EST) Thyroid Stimulating Hormone 0.73 0.27 - 4.20 mcIU/mL [facility] Comment: Reference Interval (mcIU/mL): Females: ??First Trimester: 0.23-3.88 ??Second Trimester: 0.22-3.90 ??Third Trimester: 0.44-4.66 Blood 05/20/2023 11:2 2 AM EST 05/20/2023 11:28 AM EST Narrative Resulting Agency Comment Spec In Lab Prabhjot Schuster MD CHEMISTRY ORDERABLES Performing Organization Address [facility] Co de Phone Number [facility] [place] [address] * Comprehensive metabolic panel (non-fasting) (05/20/2023 11:22 AM EST) Glucose 91 65 - 199 mg/dL [facility] Comment:Diabetes: >=200 mg/d L plus symptoms Blood Urea Nitrogen 10 10 - 20 mg/dL [facility] Creatinine 0.87 0.80 - 1.50 mg/dL [facility] Sodium 140 135 - 145 mmol/L [facility] Potassium 4.9 3.5 - 5.0 mmol/L [facility] Comment: Please note: ??Patients with WBC >100,000 may have falsely elevated Potassium levels. ??For accurate Potassium quantification in these patients send serum separator tube (gold top) for subsequent determinations. ??Contact the Clinical Chemistry Laboratory if there are any questions. Chloride 103 98 - 107 mmol/L [facility] Carbon Dioxide 26 22 - 31 mmol/L [facility] Anion Gap 11 5 - 15 mmol/L [facility] Calcium 9.5 8.5 - 10.5 mg/dL [facility] Protein, Total 7.3 6.1 - 8.0 g/dL [facility] Albumin 4.4 3.2 - 5.2 g/dL [facility] Aspartate Aminotransferase 20 0 - 39 unit/L [facility] Alanine Aminotransferase 25 0 - 55 unit/L [facility] Alkaline Phosphatase 60 40 - 130 unit/L [facility] Bilirubin, Total 0.6 0.2 - 1.3 mg/dL [facility] Est Glomerular Filtration Rate 98 >=60 mL/min/1. 73 m?? [facility] Comment: This patient's estimated GFR was calculated using the 2020 CKD-EPI equation. The estimated GFR can vary from the measured GFR by up to 30% in the absence of rapidly changing kidney function. Assessment of the estimated GFR is not appropriate when creatinine concentrations are rapidly changing. For clinical situations in which a more precise estimate of GFR is necessary, consider alternative methods of GFR estimation such as a 24-hour urine creatinine clearance. Assignment of CKD stage 1-5 for patients with an eGFR near the transition point between stages may be based on clinical assessment of muscle mass and symptoms in addition to eGFR. Blood 05/20/2023 11:2 2 AM EST 05/20/2023 11:28 AM EST Narrative Resulting Agency Comment Spec In Lab Prabhjot Schuster MD CHEMISTRY ORDERABLES [facility] [place] [address] * (ABNORMAL) pro-Brain Natriuretic Peptide (05/20/2023 11:22 AM EST) NT-proBNP 302(H) <=124 pg/mL [facility] Blood 05/20/2023 11:2 2 AM EST 05/20/2023 11:28 AM EST Narrative Resulting Agency Comment Spec In Lab Prabhjot Schuster MD CHEMISTRY ORDERABLES Performing Organization Address [facility] [place] [address] * Creatinine (05/20/2023 11:22 AM EST) Creatinine 0.87 0.80 - 1.50 mg/dL [facility] Est Glomerular Filtration Rate 98 >=60 mL/min/1. 73 m?? [facility] Comment: This patient's estimated GFR was calculated using the 2020 CKD-EPI equation. The estimated GFR can vary from the measured GFR by up to 30% in the absence of rapidly changing kidney function. Assessment of the estimated GFR is not appropriate when creatinine concentrations are rapidly changing. For clinical situations in which a more precise estimate of GFR is necessary, consider alternative methods of GFR estimation such as a 24-hour urine creatinine clearance. Assignment of CKD stage 1-5 for patients with an eGFR near the transition point between stages may be based on clinical assessment of muscle mass and symptoms in addition to eGFR. Blood 05/20/2023 11:2 2 AM EST 05/20/2023 11:28 AM EST Narrative Resulting Agency Comment Spec In Lab Mono Chavarria MD CHEMISTRY ORDERABLE S Performing Organization Address City/[facility]/ZIP Co de Phone Number [facility] [place] [address] * Basic Metabolic Panel (non-fasting) (05/20/2023 11:22 AM EST) Glucose 91 65 - 199 mg/dL [facility] Comment:Diabetes: >=200 mg/d L plus symptoms Blood Urea Nitrogen 10 10 - 20 mg/dL [facility] Creatinine 0.87 0.80 - 1.50 mg/dL [facility] Sodium 140 135 - 145 mmol/L [facility] Potassium 4.9 3.5 - 5.0 mmol/L [facility] Comment: Please note: ??Patients with WBC >100,000 may have falsely elevated Potassium levels. ??For accurate Potassium quantification in these patients send serum separator tube (gold top) for subsequent determinations. ??Contact the Clinical Chemistry Laboratory if there are any questions. Chloride 103 98 - 107 mmol/L [facility] Carbon Dioxide 26 22 - 31 mmol/L [facility] Anion Gap 11 5 - 15 mmol/L [facility] Calcium 9.5 8.5 - 10.5 mg/dL [facility] Est Glomerular Filtration Rate 98 >=60 mL/min/1. 73 m?? [facility] Comment: This patient's estimated GFR was calculated using the 2020 CKD-EPI equation. The estimated GFR can vary from the measured GFR by up to 30% in the absence of rapidly changing kidney function. Assessment of the estimated GFR is not appropriate when creatinine concentrations are rapidly changing. For clinical situations in which a more precise estimate of GFR is necessary, consider alternative methods of GFR estimation such as a 24-hour urine creatinine clearance. Assignment of CKD stage 1-5 for patients with an eGFR near the transition point between stages may be based on clinical assessment of muscle mass and symptoms in addition to eGFR. Blood 05/20/2023 11:2 2 AM EST 05/20/2023 11:28 AM EST Narrative Resulting Agency Comment Spec In Lab Prabhjot Schuster MD CHEMISTRY ORDERABLES [facility] [place] [address] documented in this encounter Visit Diagnoses Diagnosis Atrial fibrillation, new onset Atrial fibrillation S/P aorta repair Coronary artery disease, unspecified vessel or lesion type, unspecified whether angina present, unspecified whether [place] or transplanted heart HFrEF (heart failure with reduced ejection fraction) documented in this encounter Care Teams Sales And Service Technician Relationship Specialty Start Date End Date Tono Montero MD PCP - General Family Medicine 09/02/22 documented as of this encounter
--- OUTSIDE RECORDS SUMMARY | 2024-02-25 10:36 | XMS_ITS | Encounter Summary ---
Author Organization Formerly [facility] Address [facility] [place] [address] Care Team Providers Care Roll Filler Name Role Phone Tono Montero MD Primary Care Provider [phone] Reason for Referral * Diagnostic Test (Routine) - Closed Specialty Diagnoses / Procedures Referred By Contac t Referred To Contact Cardiology Diagnoses HFrEF (heart failure with reduced ejection fraction) Procedures Echocardiogram Transthoracic Gian Schuster MD [facility] [place] [address] [facility] [place] [address] Referral ID Status Reason Start Date Expiration Date V isits Requested Visits Authorized [id number] Closed Specialty Service Requested 03/06/2023 03/05/2024 1 1 Reason for Visit * Diagnostic Test (Routine) - Closed Specialty Diagnoses / Procedures Referred By Contac t Referred To Contact Cardiology Diagnoses HFrEF (heart failure with reduced ejection fraction) Procedures Echocardiogram Transthoracic Gian Schuster MD [facility] [place] [address] [facility] [place] [address] Referral ID Status Reason Start Date Expiration Date V isits Requested Visits Authorized [id number] Closed Specialty Service Requested 03/06/2023 03/05/2024 1 1 Encounter Details Date Type Department Care Team (Latest Contact Info) Description 01/15/2024 7:44 AM EDT - 01/15/2024 11:59 PM EDT Hospital Encounter Non-Invasive Cardiology Lab [facility] [address] Gian Schuster MD [facility] [place] [address] HFrEF (heart failure with reduced ejection fraction) [...] Sig Dispensed Refills Start Date End Date torsemide (Demadex) 20 mg tabletIndications:Roly nary artery disease, unspecified vessel or lesion type, unspecified whether angina present, unspecified whether little traverse or transplanted heart Take 0.5 tablets by mouth daily. 01/15/2024 Eliquis 5 mg tablet TAKE ONE TABLET BY MOUTH TWICE A DAY 180 tablet 3 10/06/2023 spironolactone (Aldactone) 25 mg tabletIndications:Hype rtension, unspecified type,Coronary artery disease, unspecified vessel or lesion type, unspecified whether angina present, unspecified whether little traverse or transplanted heart Take 1 tablet by mouth daily. 90 tablet 2 09/16/2023 canagliflozin (Invokana) 100 mg tablet Take 100 [...] (E.C.) Take 81 mg by mouth daily. documented as of this encounter Plan of Treatment Not on file documented as of this encounter Procedures Procedure Name Priority Date/Time Associated Diagnosis Comments ECHO COMPLETE Routine 01/15/2024 9:08 AM EDT HFrEF (heart failure with reduced ejection fraction) documented in this encounter Results * ECHO COMPLETE (01/15/2024 9:08 AM EDT) Anatomical Region Laterality Modality Cardiac Other 01/15/2024 8:18 AM EDT Narrative 01/15/2024 9:51 AM EDT 1 [place] [address] ? Echocardiogram Report Name: ADDIS DONNELLY ?Study Date: 01/15/2024 08:18 AMBP: 111/71 mmHg ? Patient Location: : 1960 ? Height: 170 cm ? Account: [id number] Age: 63 yrs ? Weight: 106 kg Gender: Male ?BSA: 2.2 m2 Ordering Physician: GIAN SCHUSTER Referring Physician: GIAN SCHUSTER Performed By: GLORIA Pedroza Reason For Study: HFrEF Exam Location: [facility]. Interpretation Summary -Left ventricle is mildly dilated. Left ventricular systolic function is normal. Left ventricular ejection fraction is estimated visually at 55%. There are segmental wall motion abnormalities as shown in the attached diagram. -The right ventricle is of normal size. Right ventricular systolic function is mildly decreased. -There is a 29 mm aortic prosthesis. The mean gradient across the prosthesis is 8 mmHg . There appears to be trace intravalvular regurgitation. -The aortic root is dilated (4.2 cm). -There is no hemodynamically significant valve disease. -Compared to the prior study from 05/20/2023, there has been no significnat change. Procedure Complete-[id number]. Satisfactory quality. The rhythm is atrial fibrillation. Bradycardia. Left Ventricle Left ventricle is mildly dilated. Mildly increased thickness of the basal septum with no obstruction to LV outflow. There is no ventricular septal defect. Left ventricular systolic function is normal. Left ventricular ejection fraction is estimated visually at 55%. There are segmental wall motion abnormalities. Right Ventricle The right ventricle is of normal size. Right ventricular systolic function is mildly decreased. Left Atrium The left atrium is normal. There is a single atrial septostomy site present. Right Atrium The right atrium is mildly dilated. Aortic Valve There is a bioprosthetic valve in the aortic position. There is a 29 mm aortic prosthesis. The date or year of insertion is 09/18/2022. The peak gradient across the prosthesis is 15.8 mmHg . The mean gradient across the prosthesis is 8.1 mmHg . There appears to be trace intravalvular regurgitation. Mitral Valve The mitral valve is structurally normal. There is no mitral stenosis. There is trace mitral regurgitation. Tricuspid Valve The tricuspid valve is structurally normal. There is no tricuspid stenosis. There is trace tricuspid regurgitation. Pulmonic Valve The pulmonic valve appears to be structurally normal. There is no valvular pulmonic stenosis. There is trace pulmonic valve regurgitation. Great Arteries The diameter at the level of the sinuses of Valsalva is 4.2 cm. The maximum diameter of the proximal ascending aorta is 3.4 cm. No abnormalities of the pulmonary artery are identified. Venous Inferior vena cava is dilated. Inferior vena cava collapse less than 50% with respiration. Pericardium/Pleural There is no pericardial effusion. Hemodynamics The peak right ventricular systolic pressure is 31.9 mmHg . The estimated right atrial pressure is 15mmHg. Left ventricular diastolic function is normal. Left ventricular filling pressure is normal. ? 2D Measurements ? Volumes ?IVSd: 1.2 cm ? LAV(MOD-bp) Indexed: ?LVIDd: 5.7 cm ?LVPWd: 0.89 cm ? 31.1 ml/m2 ?RWT: 0.31 {ratio} ?RA A4Cs_phl: 23.3 cm2 ? SV(LVOT): 85.4 ml ?LV mass(C)d: 247.0 grams ?LV mass(C)dI: 114.4 grams/m2 ?? SI(LVOT): 39.6 ml/m2 ?Ao root diam: 4.2 cm ?Ao root diam index: 2.0 ?asc Aorta Diam: 3.4 cm ?LVOT diam: 2.2 cm Doppler LV V1 VTI: 22.5 cm Ao V2 VTI: 35.3 cm Ao Max: 198.5 cm/sec Ao valve max: 15.8 mmHg Ao valve mean: 8.1 mmHg MV E max bret: 93.2 cm/sec MV dec time: 0.19 sec Lat Peak E' Bret: 17.0 cm/sec E/e' (lat): 5.5 Med Peak E' Bret: 12.9 cm/sec E/e' (med): 7.2 E/e' Average: 6.4 FINA(I,D): 2.4 cm2 Dimensionless index Aov: 0.64 TR max bret: 205.2 cm/sec RVSP(TR): 31.9 mmHg I ?WMSI = 1.13 ? % Normal = 88 ?Segments ??Size X - Cannot ?2 - ?4 - ?1-2 ? small Interpret ?1 - Normal ?? Hypokinetic 3 - Akinetic Dyskinetic ?? 3-5 ? moderate 5 - ? 6-14 ?large Aneurysmal ?15-16 ?? diffuse Procedure Note Johann Don MD - 01/15/2024 1 [place] [address] Echocardiogram Report Name: YULIANAADDIS HARDIN Study Date: 408:18 AMBP: 111/71 mmHg Patient Location: : 1960 Height: 170 cm Account: [id number] Age: 63 yrs Weight: 106 kg Gender: Male BSA: 2.2 m2 Ordering Physician: GIAN SCHUSTER Referring Physician: GIAN SCHUSTER Performed By: GLORIA Pedroza Reason For Study: HFrEF Exam Location: [facility]. Interpretation Summary -Left ventricle is mildly dilated. Left ventricular systolic function isnormal. Left ventricular ejection fraction is estimated visually at 55%. Thereare segmental wall motion abnormalities as shown in the attached diagram. -The right ventricle is of normal size. Right ventricular systolicfunction is mildly decreased. -There is a 29 mm aortic prosthesis. The mean gradient across theprosthesis is 8 mmHg . There appears to be trace intravalvular regurgitation. -The aortic root is dilated (4.2 cm). -There is no hemodynamically significant valve disease. -Compared to the prior study from 05/20/2023, there has been no significnatchange. Procedure Complete-[id number]. Satisfactory quality. The rhythm is atrial fibrillation. Bradycardia. Left Ventricle Left ventricle is mildly dilated. Mildly increased thickness of the basalseptum with no obstruction to LV outflow. There is no ventricular septal defect.Left ventricular systolic function is normal. Left ventricular ejectionfraction is estimated visually at 55%. There are segmental wall motionabnormalities. Right Ventricle The right ventricle is of normal size. Right ventricular systolic functionis mildly decreased. Left Atrium The left atrium is normal. There is a single atrial septostomy sitepresent. Right Atrium The right atrium is mildly dilated. Aortic Valve There is a bioprosthetic valve in the aortic position. There is a 29 mmaortic prosthesis. The date or year of insertion is 09/18/2022. The peak gradientacross the prosthesis is 15.8 mmHg . The mean gradient across the prosthesis is8.1 mmHg . There appears to be trace intravalvular regurgitation. Mitral Valve The mitral valve is structurally normal. There is no mitral stenosis.There is trace mitral regurgitation. Tricuspid Valve The tricuspid valve is structurally normal. There is no tricuspidstenosis. There is trace tricuspid regurgitation. Pulmonic Valve The pulmonic valve appears to be structurally normal. There is novalvular pulmonic stenosis. There is trace pulmonic valve regurgitation. Great Arteries The diameter at the level of the sinuses of Valsalva is 4.2 cm. Themaximum diameter of the proximal ascending aorta is 3.4 cm. No abnormalities ofthe pulmonary artery are identified. Venous Inferior vena cava is dilated. Inferior vena cava collapse less than 50%with respiration. Pericardium/Pleural There is no pericardial effusion. Hemodynamics The peak right ventricular systolic pressure is 31.9 mmHg . The estimatedright atrial pressure is 15mmHg. Left ventricular diastolic function is normal.Left ventricular filling pressure is normal. 2D Measurements Volumes IVSd: 1.2 cm LAV(MOD-bp)Indexed: LVIDd: 5.7 cm LVPWd: 0.89 cm 31.1 ml/m2 RWT: 0.31 {ratio} RA A4Cs_phl: 23.3cm2 SV(LVOT): 85.4ml LV mass(C)d: 247.0 grams LV mass(C)dI: 114.4 grams/m2 SI(LVOT): 39.6ml/m2 Ao root diam: 4.2 cm Ao root diam index: 2.0 asc Aorta Diam: 3.4 cm LVOT diam: 2.2 cm Doppler LV V1 VTI: 22.5 cm Ao V2 VTI: 35.3 cm Ao Max: 198.5 cm/sec Ao valve max: 15.8 mmHg Ao valve mean: 8.1 mmHg MV E max bret: 93.2 cm/sec MV dec time: 0.19 sec Lat Peak E' Bret: 17.0 cm/sec E/e' (lat): 5.5 Med Peak E' Bret: 12.9 cm/sec E/e' (med): 7.2 E/e' Average: 6.4 FINA(I,D): 2.4 cm2 Dimensionless index Aov: 0.64 TR max bret: 205.2 cm/sec RVSP(TR): 31.9 mmHg I WMSI = 1.13 % Normal = 88 SegmentsSize X - Cannot 2 - 4 - 1-2small Interpret 1 - Normal Hypokinetic 3 - Akinetic Dyskinetic 3-5moderate 5 - 6-14large Aneurysmal 15-16diffuse Gian Schuster MD ECHO ORDERABLES documented in this encounter Visit Diagnoses Diagnosis HFrEF (heart failure with reduced ejection fraction) documented in this encounter Care Teams Roll Filler Relationship Specialty Start Date End Date Tono Montero MD PCP - General Family Medicine 09/02/22 documented as of this encounter
--- OUTSIDE RECORDS SUMMARY | 2024-02-25 10:36 | XMS_ITS | Encounter Summary ---
Author Organization [facility] Address [facility] [place] [address] Care Team Providers Care Ore Mixer Name Role Phone Tono Montero MD Primary Care Provider [phone] Encounter Details Date Type Department Care Team (Latest Contact Info) Description 01/12/2024 Travel Social History Tobacco Use Types Packs/Day [...] on filedocumented in this encounter Care Teams Ore Mixer Relationship Specialty Start Date End Date Tono Montero MD PCP - General Family Medicine 09/02/22 documented as of this encounter
--- OUTSIDE RECORDS SUMMARY | 2024-02-25 10:36 | XMS_ITS | Encounter Summary ---
Author Organization [facility] Address [facility] [place] [address] Care Team Providers Care Oncology Pharmacist Name Role Phone Tono Montero MD Primary Care Provider [phone] Reason for Referral * Diagnostic Test (Routine) - New Request Specialty Diagnoses / Procedures Referred By Mounika carr Referred To Contact Cardiology Diagnoses Coronary artery disease, unspecified vessel or lesion type, unspecified whether angina present, unspecified whether kashia or transplanted heart Aortic root enlargement Procedures Echocardiogram Transthoracic Prabhjot Schuster MD [facility] [place] [address] [facility] [place] [address] Referral ID Status Reason Start Date Expiration Date Visits Requested Visits Authorized [id number] New Request Specialty Service Requested 01/15/2024 01/14/2025 1 1 Encounter Details Date Type Department Care Team (Late st Contact Info) Description 01/15/2024 2:20 PM EDT Office Visit Cardiology at [address] [address] Prabhjot Schuster MD [facility] [place] [id number] Coronary artery disease, unspecified vessel or lesion type, unspecified whether angina present, unspecified whether kashia or transplanted heart; Aortic root enlargement; Hypertension, unspecified type; Atrial fibrillation, unspecified type Social History Tobacco Use Types Packs/Day Years Used Date Smoking Tobacco: Former Cigarettes 1 45 0 08/23/1977 - 08/23/2022 e-Cigarettes Smokeless Tobacco: Never Alcohol Use Standard Drinks/Week Comments Yes 0 (1 standard drink = 0.6 oz pur e alcohol) No ETOH since 4.1.23 DH IPV Inpatient Questions Answer Date Recorded Does [...] Sign Reading Time Taken Comments Blood Pressure 110/83 01/15/2024 2:07 PM EDT Pulse 78 01/15/2024 2:07 PM EDT Temperature - - Respiratory Rate - - Oxygen Saturation 96% 01/15/2024 2:07 PM EDT Inhaled Oxygen Concentration - - Weight 101 kg (222 lb 9.6 oz) 01/15/2024 2:07 PM EDT Height 170.2 cm (5' 7) 01/15/2024 2:07 PM EDT Body Mass Index 34.86 01/15/2024 2:07 PM EDT documented in this encounter Progress Notes * Prabhjot Schuster MD - 01/15/2024 2:20 PM EDT Images from the original note were not included. [facility] [place] [address] CARDIOLOGY OUTPATIENT PROGRESS NOTE PRIMARY CARE PROVIDER: Tono Montero MD REFERRING PROVIDER: Tono Montero IDENTIFICATION: Conner Donnelly is a 63 y.o. patient who presents to clinic for follow-up. All parties consented to the use of MAT to document this visit. Cardiology Problem List: Severe bicuspid aortic valve stenosis and ascending aortic aneurysm s/p bioprosthetic AVR / aortic root replacement (29 mm connect composite tissue root) - 09/18/2022 CAD (pRCA 60%) s/p CABG x 1 (09/18/2022) HFrecEF (LVEF 30-40% in September 2022) HTN HLD Afib, post-op SUBJECTIVE/INTERVAL HISTORY: Conner Donnelly was last seen in Cardiology on 05/20/23 (Prabhjot Schuster). Since that visit, Conner Donnelly reports: History of Present Illness The patient presents for evaluation of shortness of breath. He reports experiencing shortness of breath, particularly during his daily 4- mile walks and three times weekly gym sessions. He also mentions feeling fatigued by 4:00 PM. He does not experience chestpain, leg swelling, or irregular heartbeats. He describes occasional episodes where he feels as though his breath is momentarily taken away, which he suspects might be related to atrial fibrillation (AFib). These episodes have decreased in frequency, now occurring once or twice a week, compared to daily when he had AFib. He does not experience these episodes during sleep. He reports no fevers or chills. He has quit smoking and drinking alcohol. He recently underwent a colonoscopy, during which he temporarily stopped taking Eliquis. He noticed an increase in his blood pressure to 138/80 during this period. He reports no presence of blood in his stool or vomit. He hasa history of bleeding ulcers and hemorrhoids. He is curious about the potential use of ibuprofen and cough medicine. His primary care physician changed his bupropion because he was urinating every hour at night. He was taking it at night and now he is taking it in the morning, reducing the frequency to twice a night, sometimes once, sometimes three times. He had this issue before the operation, but it was not as severe as it is now. He also reports that his hand and sometimes his arm go to sleep, particularly on the left side. This occurs while he is using his phone, and his whole hand feels numb. Currently, the tips of his fingers are numb, but he is not dropping things. He used to have what he thought was sciatica, which resolved after he jumped out of the back of a truck and broke his heel. He has not been to the chiropractor since. MEDICATIONS: Current Outpatient Medications Medication Sig Dispense Refill Eliquis 5 mg tablet TAKE ONE TABLET BY MOUTH TWICE A DAY 180 tablet 3 spironolactone (Aldactone) 25 mg tablet Take 1 tablet by mouth daily. 90 tablet 2 canagliflozin (Invokana) 100 mg tablet Take 100 [...] to 12.5 2x daily) 180 tablet 3 buPROPion SR (Wellbutrin SR) 150 mg SR 12 hr tablet Take 150 mg by mouth daily. psyllium seed (PSYLLIUM ORAL) Take by mouth 4 times daily. aspirin 81 mg Tablet, Delayed Release (E.C.) Take 81 mg by mouth daily. torsemide (Demadex) 20 mg tablet Take 0.5 tablets by mouth daily. No current facility-administered medications for this visit. Objective: PHYSICAL EXAM: BP 110/83 Pulse 78 Ht 170.2 cm (5' 7) Wt 101 kg (222 lb 9.6 oz) SpO2 96% BMI 34.86 kg/m?? , Body mass index is 34.86 kg/m??. General: Very pleasant. No distress. Skin: Warm and dry. Well healed sternotomy scar. HEENT: Anicteric sclera. Neck: JVP not elevated at 60 degrees. No HJR. No carotid bruits bilaterally. Chest: Clear to auscultation bilaterally, normal resp effort. Heart: No heave. Regularly regular rhythm. Normal S1 and S2. No gallops. No murmurs. Abdomen: Nondistended. Soft. Nontender. + bowel tones Extremities: No pretibial edema bilaterally, 2+ radial pulses rachael, 2+ dorsal pedal pulses bilaterally EXHAUST TENDER: Normal mentation. Psych: Appropriate affect. Labs: Lab Results Component Value Date WBC 8.6 05/20/2023 HGB 14.8 05/20/2023 PLATELET 194 05/20/2023 NA 140 05/20/2023 NA 140 05/20/2023 K 4.9 05/20/2023 K 4.9 05/20/2023 CL 103 05/20/2023 CL 103 05/20/2023 CO2 26 05/20/2023 CO2 26 05/20/2023 BUN 10 05/20/2023 BUN 10 05/20/2023 CREATININE 0.87 05/20/2023 CREATININE 0.87 05/20/2023 CREATININE 0.87 05/20/2023 CHLPL 96 05/20/2023 HDL 35 05/20/2023 CHOLHDL 2.7 05/20/2023 TRIG 192 05/20/2023 LDLCHOL 23 05/20/2023 TTE (today) (Reviewed): -Left ventricle is mildly dilated. Left ventricular [...] 05/20/2023, there has been no significnat change. Results Assessment and Plan: # Aortic valve replacement for severe bicuspid # Aortic root replacement # Afib # [id number] 2 # HFrecEF # ASCVD s/p [id number] Clinically doing very well. No anginal symptoms. No evidence of heart failure; appears well compensated. Intermittent fleeting shortness of breath, ? Afib. Tolerating BB and DOAC. Tolerating GDMT with recovery of EF. Discussed rhythm monitor to determine if episodic SOB secondary to rhythm changes but pt defer at this time. Discussed OTC medications: ibuprofen, cough medicine. Ok with limited PRNutilization for symptom management. Continue GDMT. Follow up in 1 year with echo and labs. Continuedietary and lifestyle modification. Congratulated pt on ongoing tobacco and EtOH cessation. The possibility of discontinuing torsemide was discussed, with instructions to monitor for fluid retention symptoms such as puffiness, increased shortness of breath, or difficulty lying down. If these symptoms occur, he should resume taking torsemide. Return to clinic in: 12-18 months with TTE and labs or sooner if needed. All questions answered. Strict return precautions given. Thank you for the opportunity to participate in this patient's cardiovascular care. All questions were answered and I look forward to the next visit. Prabhjot Schuster MD [facility] Cardiology, [facility] documented in this encounter Plan of Treatment Scheduled Orders Name Type Priority Associated Diagnoses Orde r Schedule Echocardiogram Transthoracic Echocardiography Routine Coronary artery disease, unspecified vessel or lesion type, unspecified whether angina present, unspecified whether kashia or transplanted heart Aortic root enlargement Expected: 01/14/2025 (Approximate), Expires: 07/14/2025 Comprehensive metabolic panel Non-fasting Lab Routine Coronary artery disease, unspecified vessel or lesion type, unspecified whether angina present, unspecified whether kashia or transplanted heart Expected: 01/14/2025 (Approximate), Expires: 07/14/2025 Lipid Panel (Reflex Direct LDL) Lab Routine Coronary artery disease, unspecified vessel or lesion type, unspecified whether angina present, unspecified whether kashia or transplanted heart Expected: 01/14/2025 (Approximate), Expires: 07/14/2025 documented as of this encounter Visit Diagnoses Diagnosis Coronary artery disease, unspecified vessel or lesion type, unspecified whether angina present, unspecified whether kashia or transplanted heart Aortic root enlargement Other specified disorders of arteries and arterioles Hypertension, unspecified type Atrial fibrillation, unspecified type documented in this encounter Care Teams Oncology Pharmacist Relationship Specialty Start Date End Date Tono Montero MD PCP - General Family Medicine 09/02/22 documented as of this encounter
--- OUTSIDE RECORDS SUMMARY | 2024-02-25 10:36 | XMS_ITS | Encounter Summary ---
Author Organization Formerly [facility] Address [facility] [place] [address] Care Team Providers Care Last Repairer Helper Name Role Phone Tono Montero MD Primary Care Provider [phone] Reason for Visit * Reason Comments Medication Refill Encounter Details Date Type Department Care Team (Late st Contact Info) Description 10/04/2023 Refill Cardiology at [address] [address] Prabhjot Schuster MD [facility] [place] [address] Medication Refill Social History Tobacco Use Types [...] on filedocumented in this encounter Care Teams Last Repairer Helper Relationship Specialty Start Date End Date Tono Montero MD PCP - General Family Medicine 09/02/22 documented as of this encounter
--- OUTSIDE RECORDS SUMMARY | 2024-02-25 10:36 | XMS_ITS | Clinical Summary ---
Author Organization [facility] Address [facility] [place] [address] Care Team Providers Care Clinical Trial Assistant Name Role Phone Tono Montero MD Primary Care Provider [phone] Allergies Active Allergy Reactions Criticality Noted Date Comments Oxycodone Nausea Only High 03/04/2023 Medications Medication Sig Dispensed Refills Start Date End Date Status aspirin 81 mg Tablet, Delayed Release (E.C.) Take 81 mg by mouth daily. Active buPROPion SR (Wellbutrin SR) 150 mg SR 12 hr tablet Take 150 mg by mouth daily. 08/13/2022 Active psyllium seed (PSYLLIUM ORAL) Take by mouth 4 times daily. Active atorvastatin (Lipitor) 40 mg tablet Take 1 tablet by mouth every evening. While taking amiodarone then increase back to 80mg daily 30 tablet 09/27/2022 Active losartan (Cozaar) 25 mg tablet Take 1 tablet by mouth daily. 90 tablet 09/27/2022 Active acetaminophen (Tylenol) 500 mg tablet Take 2 tablets by mouth every 6 hours. 09/27/2022 Active amoxicillin (Amoxil) 500 mg capsule Take 4 capsules by mouth once as needed (Bacterial endocarditis prevention. take 30-60 min prior to procedures including dental cleanings) for up to 1 dose. 4 capsule 3 09/27/2022 Active metoproloL tartrate (Lopressor) 25 mg tablet Take 1 tablet by mouth 2 times daily. 180 tablet 3 09/27/2022 Active Additional Information Patient taking differently:25 mg Oral 2 TIMES DAILY,Decreased to 12.5 2x daily, Reported on 10/10/2022 canagliflozin (Invokana) 100 mg tablet Take 100 mg by mouth daily. Active spironolactone (Aldactone) 25 mg tabletIndications:H ypertension, unspecified type,Coronary artery disease, unspecified vessel or lesion type, unspecified whether angina present, unspecified whether [place] or transplanted heart Take 1 tablet by mouth daily. 90 tablet 2 09/16/2023 Active Eliquis 5 mg tablet TAKE ONE TABLET BY MOUTH TWICE A DAY 180 tablet 3 10/06/2023 Active torsemide (Demadex) 20 mg tabletIndications:C oronary artery disease, unspecified vessel or lesion type, unspecified whether angina present, unspecified whether [place] or transplanted heart Take 0.5 tablets by mouth daily. 01/15/2024 Active Active Problems Problem Noted Date Diagnosed Date Atrial fibrillation, new onset 09/29/2022 S/P AVR 09/27/2022 CAD (coronary artery disease) 09/18/2022 Aortic stenosis 09/02/2022 Sleep apnea Overview (06/13/2015): questionable, sleep center scheduled for 07/09/15 Pleuritic chest pain HTN (hypertension) Encounters Date Type Department Care Team Description 01/15/2024 2:20 PM EDT Office Visit Cardiology at [address] [address] Gian Schuster MD Coronary artery disease, unspecified vessel or lesion type, unspecified whether angina present, unspecified whether [place] or transplanted heart; Aortic root enlargement; Hypertension, unspecified type; Atrial fibrillation, unspecified type 01/15/2024 7:44 AM EDT - 01/15/2024 11:59 PM EDT Hospital Encounter [place] [address] Gian Schuster MD HFrEF (heart failure with reduced ejection fraction) Discharge Disposition: Home 01/15/2024 Travel 01/12/2024 Refill Cardiology at [address] [address] Gian Schuster MD Medication Refill 01/12/2024 Travel from Last 3 Months Social History Tobacco Use Types Packs/Day Years Used Date Smoking Tobacco: Former Cigarettes 1 45 0 08/23/1977 - 08/23/2022 e-Cigarettes Smokeless Tobacco: Never Alcohol Use Standard Drinks/Week Comments Yes 0 (1 standard drink = 0.6 oz pur e alcohol) No ETOH since 4.06.02 DH IPV Inpatient Questions Answer Date Recorded [...] Orientation Straight 12/27/2022 9: 49 AM EDT Last Filed Vital Signs Vital Sign Reading Time Taken Comments Blood Pressure 110/83 01/15/2024 2:07 PM EDT Pulse 78 01/15/2024 2:07 PM EDT Temperature 37.1 ??C (98.7 ??F) 09/27/2022 9:00 AM ED T Respiratory Rate 19 09/27/2022 9:00 AM EDT Oxygen Saturation 96% 01/15/2024 2:07 PM EDT Inhaled Oxygen Concentration - - Weight 101 kg (222 lb 9.6 oz) 01/15/2024 2:07 PM EDT Height 170.2 cm (5' 7) 01/15/2024 2:07 PM EDT Body Mass Index 34.86 01/15/2024 2:07 PM EDT Plan of Treatment Health Maintenance Due Date Last Done Comments CT Colonography 1960 Colonoscopy 1960 Colorectal Cancer Screening 1960 FIT DNA 1962 FIT 1962 Sigmoidoscopy (10 year) with FIT yearly 1962 Sigmoidoscopy 1960 HIV screen 1980 Hepatitis C Screening 1980 Tetanus/Diphtheria/Pertussis Vaccines (1 - Tdap) 1981 Zoster vaccine (1 of 2) 2012 Advance Directive 2017 Covid-19 Vaccine ( - 2022-2 4 season) 2024 Influenza (Flu) vaccine (1 o f 1 - Influenza standard series) 01/10/2024 Diabetes Screening (HgbA1C o r Glucose) 05/20/2026 05/20/2023, 05/20/2023, 09/21/2022, Additional history exists Lipid Screening Discontinued 05/20/2023, 09/03/2022 Medical Devices Implanted Type Area Administrative Project Coordinator Device Identifier Shelf Expiration Date Model / Serial / Lot Patch,[place],Srg [id number] ([id number]) - [id number] Implanted:Qty: 1 on 09/18/2022 by Mono Chavarria MD at [facility] IMPLANTS N/A: Aorta [employer] - CR BARD [id number] 09/05/2026 [id number] / / [id number] Conduit Aortic Valved 29mm Bovine Pre Assembled Konect ([id number]) (Autoreq) - [id number] Implanted:Qty: 1 on 09/18/2022 by Mono Chavarria MD at [facility] IMPLANTS N/A: Aorta [employer] - [employer] LI 07/22/2025 [id number] / [id number] / [id number] Description:Bovine pericardi um tissue valve Cable Sternal Tapered Blunt Needle Cutting Edge Ss ([id number]) - [id number] Implanted:Qty: 1 on 09/18/2022 by Mono Chavarria MD at [facility] IMPLANTS Midline: Sternum [employer] - RTI SURGIC 01/02/2027 [id number] / / [id number] Description:4 cables Procedures Procedure Name Priority Date/Time Associated Diagnosis Comments ECHO COMPLETE Routine 01/15/2024 9:08 AM EDT HFrEF (heart failure with reduced ejection fraction) LIPID PANEL (REFLEX DIRECT LDL) Routine 05/20/2023 11:22 AM EST Coronary artery disease, unspecified vessel or lesion type, unspecified whether angina present, unspecified whether [place] or transplanted heart HFrEF (heart failure with reduced ejection fraction) Atrial fibrillation, new onset BASIC METABOLIC PANEL Routine 05/20/2023 11:22 AM EST Atrial fibrillation, new onset from Last 3 Months or Most Recently Relevant to Health Maintenance Results * ECHO COMPLETE (01/15/2024 9:08 AM EDT) Anatomical Region Laterality Modality Cardiac Other 01/15/2024 8:18 AM EDT Narrative 01/15/2024 9:51 AM EDT [address] [place] [address] ? Echocardiogram Report Name: ADDIS DONNELLY ?Study Date: 01/15/2024 08:18 AMBP: 111/71 mmHg ? Patient Location: 4A : 1960 ? Height: 170 cm ? Account: [id number] Age: 63 yrs ? Weight: 106 kg Gender: Male ?BSA: 2.2 m2 Ordering Physician: GIAN SCHUSTER Referring Physician: GIAN SCHUSTER Performed By: GLORIA Pedroza Reason For Study: HFrEF Exam Location: [facility]. Interpretation Summary -Left ventricle is mildly dilated. [...] there has been no significnat change. Procedure Complete-87722. Satisfactory quality. The rhythm is atrial fibrillation. [...] Note Johann Don MD - 01/15/2024 [address] [place] [address] Echocardiogram Report Name: ADDIS DONNELLY Study Date: 408:18 AMBP: 111/71 mmHg Patient Location: 4A : 1960 Height: 170 cm Account: [id number] Age: 63 yrs Weight: 106 kg Gender: Male BSA: 2.2 m2 Ordering Physician: GIAN SCHUSTER Referring Physician: GIAN SCHUSTER Performed By: GLORIA Pedroza Reason For Study: HFrEF Exam Location: [facility]. Interpretation Summary -Left ventricle is mildly dilated. [...] 05/20/2023, there has been no significnatchange. Procedure Complete-15002. Satisfactory quality. The rhythm is atrial fibrillation. [...] 15-16diffuse Gian Schuster MD ECHO ORDERABLES * Lipid Panel (Reflex Direct LDL) (05/20/2023 11:22 AM EST) Cholesterol, Total 96 mg/dL [facility] Comment: Lower Risk: <200 mg/dL Average Risk: 200-239 mg/dL Higher Risk: >ti=952 mg/dL Triglyceride 192 mg/dL [facility] Comment: Average Risk/Lower Risk: <150 mg/dL Borderline High Risk: 150-199 mg/dL High Risk: 200-499 mg/dL Very High Risk: >bs=868 mg/dL HDL Cholesterol 35 mg/dL [facility] Comment: Males: ?? Higher Risk: <40 mg/dL Females: ?? Higher Risk: <50 mg/dL LDL Cholesterol 23 mg/dL [facility] Comment: Lowest Risk: <100 mg/dL Lower Risk: 100-129 mg/dL Borderline High Risk: 130-159 mg/dL High Risk: 160-189 mg/dL Very High Risk: >kh=298 mg/dL Cholesterol/HDL Ratio 2.7 ratio [facility] Lipid Interpretation See Note [facility] Comment: Lipid management should be guided by a patient? s ASCVD risk, goals and preferences. ACC/AHA Guidelines recommend high intensity statin if clinical ASCVD or LDL greater than or equal to 190 mg/dL. [email or web address] Adults aged 40-75 with LDL 70-189 mg/dL should have their 10 year ASCVD risk estimated with the ACC/AHA ASCVD risk mainstreaming facilitator http://tools.acc.org/ILXCF-Rtds-Vggacqwpp/ Statin should be discussed if risk greater [...] Schuster MD CHEMISTRY ORDERABLES Performing Organization Address City/State/[facility] Co de Phone Number [facility] [place] [address] * Basic Metabolic Panel (non-fasting) (05/20/2023 11:22 AM EST) Glucose 91 65 - 199 mg/dL [facility] Comment:Diabetes: >=200 mg/d L plus symptoms Blood Urea Nitrogen 10 10 - 20 mg/dL [facility] Creatinine 0.87 0.80 - 1.50 mg/dL [facility] Sodium 140 135 - 145 mmol/L [facility] Potassium 4.9 3.5 - 5.0 mmol/L [facility] Comment: Please note: ??Patients with WBC >100,000 may have falsely elevated Potassium levels. ??For accurate Potassium quantification in these patients send serum separator tube (gold top) for subsequent determinations. ??Contact the Clinical Chemistry Laboratory if there are any questions. Chloride 103 98 - 107 mmol/L [facility] Carbon Dioxide 26 22 - 31 mmol/L [facility] Anion Gap 11 5 - 15 mmol/L [facility] Calcium 9.5 8.5 - 10.5 mg/dL [facility] Est Glomerular Filtration Rate 98 >=60 mL/min/1. 73 m?? [facility] Comment: This patient's estimated GFR was [...] In Lab Gian Schuster MD CHEMISTRY ORDERABLES [facility] [place] [address] from Last 3 Months or Most Recently Relevant to Health Maintenance Advance Directives * Attempt Cardiopulmonary Resuscitation - Inpatient (Latest Code Status on File) Date Activated Date Inactivated Comments 09/18/2022 5:26 PM 09/27/2022 3:35 PM Question Answer Comments Code Status decision made by: Patient * Attempt Cardiopulmonary Resuscitation - Inpatient Date Activated Date Inactivated Comments 09/02/2022 10:28 PM 09/04/2022 6:31 PM Question Answer Comments Code Status decision made by: Patient * Full Code Date Activated Date Inactivated Comments 06/18/2015 8:35 AM 06/19/2015 4:33 AM Question Answer Comments Does patient have capacity to make decision: Yes Care Teams Clinical Trial Assistant Relationship Specialty Start Date End Date Tono Montero MD PCP - General Family Medicine 09/02/22
--- OUTSIDE RECORDS SUMMARY | 2024-02-25 10:37 | XMS_ITS | Encounter Summary ---
Author Organization [facility] Address [facility] [place] [address] Care Team Providers Care Wrapper Counter Name Role Phone Tono Montero MD Primary Care Provider [phone] Reason for Referral * Diagnostic Test (Routine) - Closed Specialty Diagnoses / Procedures Referred By Mounika carr Referred To Contact Cardiology Diagnoses Atrial fibrillation, new onset Procedures Echocardiogram Transthoracic Yomi Butcher MD [facility] [place] [address] [facility] [place] [address] Referral ID Status Reason Start Date Expiration Date V isits Requested Visits Authorized [id number] Closed Specialty Service Requested 10/10/2022 10/10/2023 1 1 Encounter Details Date Type Department Care Team (Late st Contact Info) Description 10/10/2022 2:00 PM EDT Office Visit Cardiology at [address] [address] Gian Schuster MD [facility] [place] [address] Yomi Butcher MD [facility] [place] [address] Atrial fibrillation, new onset; S/P AVR; Coronary artery disease, unspecified vessel or lesion type, unspecified whether angina present, unspecified whether [place] or transplanted heart Social History Tobacco Use Types Packs/Day Years [...] Sign Reading Time Taken Comments Blood Pressure 116/81 10/10/2022 2:04 PM EDT Pulse 47 10/10/2022 2:04 PM EDT Reported to MD, Pt stated no symptoms Temperature - - Respiratory Rate - - Oxygen Saturation 98% 10/10/2022 2:0 4 PM EDT Inhaled Oxygen Concentration - - Weight 92.8 kg (204 lb 8 oz) 10/10/2022 2:04 PM EDT Height 170.2 cm (5' 7) 10/10/2022 2:04 PM EDT pt stated Body Mass Index 32.03 10/10/2022 2:04 PM EDT documented in this encounter Patient Instructions * Patient Instructions* Yomi Butcher MD - 10/10/2022 2:00 PM EDT Stop amiodarone Switch to apixaban (no monitoring required) if affordable Will schedule you follow up with cardiac surgery Continue your other medications as prescribed We will check labs today (kidney function) We will repeat an echocardiogram in 3 months Follow up in 1-2 months documented in this encounter Progress Notes * Yomi Butcher MD - 10/10/2022 2:00 PM EDT Images from the original note were not included. [facility] [place] [address] Cardiology Clinic Note Conner Donnelly [id number] 10/10/2022 REFERRING PROVIDER: Pasha Guillen REASON FOR VISIT/FOLLOW UP: s/p AVR, NSTEMI type II PATIENT ID: Conner Donnelly is a pleasant 62 y.o. with a past medical history of severe bicuspid aortic valve stenosis and ascending aortic aneurysm s/p bioprosthetic AVR / aortic root replacement (29 mm connect composite tissue root), CAD (pRCA 60%) s/p CABG x 1, HFrEF (LVEF 30-40% in September 2022), HTN, HLD, who was seen in clinic today for post op follow up. HISTORY OF PRESENT ILLNESS: He is coming today for follow up after valve surgery. He was admitted in August 2022 for progressiveshortness of breath and then setting of known history of moderate to severe bicuspid aortic stenosis. He was admitted to [facility] initially and started on a heparin infusion for type I versus type II NSTEMI as his troponin was mildly elevated. He was having no symptoms of chest pain but rather shortness of breath. He was transferred here for further evaluation of his aortic valve and coronary arteries. TTE performed which showed newly reduced LVEF 44% with apical and lateral wall akinesis. RV function normal with RVSP 48 mmHg. Biatrial dilation. Bicuspid aortic valve with mixed aortic valve disease including severe aortic stenosis (PG 61mmHg, MG 36mmHg, FINA 1.0 cm2, DOI 0.31) and moderate aortic regurgitation. Aortic root dilated to 4.6 cm, ascending aorta 4.4 cm. Left and right heart catheterization notable for 60% proximal RCA lesion which was long and tubular otherwise mild diffuse disease of LAD, LCx, left main. Right heart cath notable for RA pressure 7, PA 42/20 mean 24, PCWP 24. Prior to right heart cath, he was given 20 mg of IV Lasix with good output and therefore we started 20mg p.o. Lasix as standing dose on discharge. Cardiac surgery consulted recommended valve /aortic surgery plus or minus bypass of RCA pending outpatient decision. He ws arranged cardiac surgery and cardiology follow-up on discharge. Weight on day of discharge 223 pounds. He was admitted again in early september and underwent planned aortic root replacement with bioprostheticAVR and CABG x 1 to RCA on 09/18/22. Hospital course was c/b decompensated heart failure requiring diuretics and postop atrial fibrillation for which he was loaded on amiodarone and started on warfarin. He was planned for 1 month follow up with cardiac surgery and cardiology. He was discharged on 09/27/22. He was discharged on amiodarone 200mg bid, metoprolol tartrate 25mg bid, spironolactone 25mg qd, torsemide 20mg qd, warfarin 5mg qd, atorvastatin 40mg qd, losartan 25mg qd, aspirin 81mg qd. Weight on discharge 206lbs now 201 lbs. He reports peeing a lot especially at night. He overall feels well. Has been participating in cardiac rehab and things have been going well. He is now starting outpatient cardiac rehab at [facility]. He is on Coumadin and INR has been therapeutic. Overall no symptoms, feels much better. REVIEW OF SYSTEMS: 12-point review of systems was completed and was notable for none. FAMILY HISTORY: None. SOCIAL HISTORY: Quit smoking last month, smoked 1 ppd. Occasional alcohol use. No other drug use. PROBLEM LIST: Patient Active Problem List Diagnosis Atrial fibrillation, new onset S/P AVR CAD (coronary artery disease) Aortic stenosis Sleep apnea questionable, sleep center scheduled for 07/09/15 Pleuritic chest pain HTN (hypertension) MEDICATIONS: Current Outpatient Medications Medication Sig Dispense Refill atorvastatin (Lipitor) 40 mg tablet Take 1 tablet by mouth every evening. While taking amiodarone then increase back to 80mg daily 30 tablet 0 losartan (Cozaar) 25 mg tablet Take 1 tablet by mouth daily. 90 tablet 0 acetaminophen (Tylenol) 500 mg tablet Take 2 tablets by mouth every 6 hours. AMIOdarone (Pacerone) 200 mg tablet Take 1 tablet by mouth 2 times daily. 60 tablet 0 torsemide (Demadex) 20 mg tablet Take 1 tablet by mouth daily. 90 tablet 0 amoxicillin (Amoxil) 500 mg capsule Take 4 [...] tablet by mouth daily. 90 tablet 3 warfarin (Coumadin) 5 mg tablet Take 1 tablet by mouth daily. Further adjustments to coumadin dose by coumadin clinic based on INR. 90 tablet 0 buPROPion SR (Wellbutrin SR) 150 mg SR 12 hr tablet TAKE 1 TABLET BY MOUTH ONCE DAILY FOR 3 DAYS THEN INCREASE TO TAKE ONE TABLET TWICE DAILY. START ONE WEEK BEFORE YOU QUIT SMOKING. psyllium seed (PSYLLIUM ORAL) Take by mouth 4 times daily. aspirin 81 mg Tablet, Delayed Release (E.C.) Take 81 mg by mouth daily. albuterol (PROVENTIL HFA;VENTOLIN HFA;PROAIR) 90 mcg/actuation HFA Aerosol Inhaler Inhale 2 puffs into the lungs every 4 hours as needed for Wheezing. Use with spacer No current facility-administered medications for this visit. ALLERGIES: Patient has no known allergies. PHYSICAL EXAMINATION: Last value Range last 24 hrs Temperature Temp: -- Heart Rate Heart Rate: (!) 47 (Reported to MD, Pt stated no symptoms) Heart Rate: [47] Blood Pressure BP: 116/81 BP: (116)/(81) Respiratory Rate Resp: -- SpO2 SpO2: 98 % SpO2: [98 %] General - No acute distress. Alert and oriented to person, place and time. Neck - No lymphadenopathy. No thyromegaly. JVP not visualized. No carotid bruit bilaterally. Lungs - Clear to auscultation bilaterally. Heart - irregular rate and rhythm, bradycardic. Normal S1,S2. No audible murmurs, gallops or rubs. Surgical scar well-healed. Extremities - Extremities are symmetric. No peripheral edema. 2+ bilateral femoral, popliteal, DP and PT pulses. DATA: Pertinent labs from the recent past have been reviewed and are notable for: Reviewed most recent labs from hospitalization. ECG: Atrial fibrillation with occasional PVCs, heart rate 68 Most recent echocardiogram: TTE 09/22/22: Interpretation Summary The patient is 4 days s/p AVR (bioprosthesis), CABG x 1V, and ascending aorta graft. History of bicuspid valve. Irregular rhythm noted (probable AF). The left ventricle is moderately dilated with moderately reduced systolic function. The estimated LVEF is 35% with global hypokinesis and minor regional variation. Abnormal septal motion consistent with postoperative state is noted. The RV is normal in size and systolic function. There is a bioprosthesis in the aortic position (bioprosthesis, unknown size, placed 09/18/2022). Preop TTE from 09/03/2022 with LVEF estimated at 44% with regional WMA. Most recent cardiac catheterization: 09/04/22: Hemodynamics: Right Heart Pressures Resting: Syst Diast EDP a v m RA 11 8 7 RV 44 10 PA 42 20 24 PCW 29 34 24 Hemodynamic Profile: Profile 1 CO 4.81 CI 2.27 TSR 1,114 SVR 998 TPR 399 Technique Estimated Trace Left Heart Pressures Resting: Syst Diast EDP a v m Ao 114 44 67 Oximetry: Location %Sat Location %Sat Right Pulmonary 63.0 Rt Rad Art Rm Air 91.0 Artery Coronary Angiography: Dominance: Right Left Main The left main was normal, free of disease. Left Anterior Descending There was mild diffuse (<=25% stenosis) disease of the entire vessel segment of the left anterior descending artery (LAD). Left Circumflex There was mild diffuse (<=25% stenosis) disease of the entire vessel segment of the left circumflex artery (LCX). Right Coronary Artery There was a 60% eccentric and smooth long segmental stenosis of the proximal segment of the right coronary artery (RCA). The RCA was large. There was moderate diffuse (<=50% stenosis) disease of the entire vessel segment of the right artioventricular continuation (TOÑITO Cont) of the RCA and it was hazy. The TOÑITO Cont was small. ASSESSMENT AND PLAN: Conner Donnelly is a pleasant 62 y.o. with a past medical history of severe bicuspid aortic valve stenosis and ascending aortic aneurysm s/p bioprosthetic AVR / aortic root replacement (29 mm connect composite tissue root), CAD (pRCA 60%) s/p CABG x 1, HFrEF (LVEF 30-40% in September 2022), HTN, HLD, who was seen in clinic today for post op follow up. Overall he is doing well postop. He unfortunately remains in atrial fibrillation at this point. We will stop the amiodarone as it does not seem to be overly beneficial to him given he is in afib and may be contributing to his bradycardia. Will continue all other medications as prescribed. Will repeat BMP given 6 lb diuresis. Will need repeat echocardiogram in 3 months. He is scheduled for cardiacre[facility] at [facility]. We will consider switching to apixaban if he can afford it (I wrote a test prescription), otherwise he will continue Coumadin. We will consider JETHRO/cardioversion at next visit in the elected to continue to think about this option. Severe bicuspid w/ aortopathy S/p aortic root replacement and bioprosthetic AVR Repeat TTE in 3 months Follow-up with cardiac surgery scheduled Postoperative atrial fibrillation Continue anticoagulation, Eliquis if he can afford it Stop amiodarone Continue metoprolol 12.5 mg twice daily for rate control Consider JETHRO/DCCV in coming months (he would like to think about this more) HFrEF Continue metoprolol, spironolactone, losartan Repeat TTE in 3 months CAD s/p 1v CABG Continue aspirin, statin HTN HLD Continue losartan, statin Follow up: 3 months Yomi Butcher MD Cardiovascular Medicine Fellow Cardiology Attending Attestation/Addendum: Please see Yomi Butcher MD's note for details of the patient history and data. I have discussed, independently reviewed the pertinent diagnostic information, and agree with the principal findings as documented in the History, Physical Findings, Assessment and Plan of Care. The assessment and plan were formulated in discussion with me. Clinically improved post-operatively. Currently in atrial fibrillation despite amiodarone. Tolerating warfarin. Warm, well perfused, clinically appears euvolemic. Well healed sternotomy scar. Recommend stopping amiodarone. Continue BB. Switching to DOAC if cost acceptable. Offered JETHRO/DCCV (pt wishes to consider). Repeat echo in 3 months. Follow-up in [address] Surgery follow-up. Gian Schuster MD, [facility] Staff Farm Appraiser documented in this encounter Miscellaneous Notes * Addendum Note - Gian Schuster MD - 10/10/2022 2:00 PM EDTAddended by: GIAN SCHUSTER on: 10/10/2022 04:32 PM Modules accepted: Level of Service documented in this encounter Plan of Treatment Scheduled Orders Name Type Priority Associated Diagnoses Orde r Schedule Basic Metabolic Panel (non-fasting) Lab Routine Atrial fibrillation, new onset Expected: 10/10/2022, Expires: 10/10/2023 documented as of this encounter Procedures Procedure Name Priority Date/Time Associated Diagnosis Comments EKG 12-LEAD Routine 10/10/2022 2:37 PM EDT Atrial fibrillation, new onset documented in this encounter Results * Basic Metabolic Panel (non-fasting) (05/20/2023 11:22 AM EST) Glucose 91 65 - 199 mg/dL [facility] Comment:Diabetes: >=200 mg/d L plus symptoms Blood Urea Nitrogen 10 10 - 20 mg/dL [facility] Creatinine 0.87 0.80 - 1.50 mg/dL [facility] Sodium 140 135 - 145 mmol/L [facility] Potassium 4.9 3.5 - 5.0 mmol/L [facility] Comment: Please note: ??Patients with WBC >100,000 may have falsely elevated Potassium levels. ??For accurate Potassium quantification in these patients send serum separator tube (gold top) for subsequent determinations. ??Contact the Clinical Chemistry Laboratory if there are any questions. Chloride 103 98 - 107 mmol/L [facility] Carbon Dioxide 26 22 - 31 mmol/L [facility] Anion Gap 11 5 - 15 mmol/L [facility] Calcium 9.5 8.5 - 10.5 mg/dL [facility] Est Glomerular Filtration Rate 98 >=60 mL/min/1. 73 m?? [facility] Comment: This patient's estimated GFR was [...] In Lab Gian Schuster MD CHEMISTRY ORDERABLES [facility] [place] [address] * ECHO COMPLETE (11/12/2022 1:22 PM EDT) Anatomical Region Laterality Modality Cardiac Other 11/12/2022 11:5 4 AM EDT Narrative 11/12/2022 1:54 PM EDT ? Echocardiogram Report Name: CONNER DONNELLY Linsey ?Study Date: 11/12/2022 11:54 AMBP: 114/81 mmHg ? Patient Location: : 1960 ? Height: 170 cm ? Account: [id number] Age: 62 yrs ? Weight: 94 kg Gender: Male ?BSA: 2.1 m2 Ordering Physician: GIAN SCHUSTER Referring Physician: YOMI BUTCHER Performed By: Freddie Palencia, GIANCARLO, GLORIA Reason For Study: New on set A. Fib, S/P ascending aorta and root replacement, CABG Exam Location: [facility]. Interpretation Summary The patient is s/p AVR (bioprosthesis), CABG [...] without a change in regional wall motion. Procedure Complete-[id number]. Satisfactory quality. Irregular rhythm. Left Ventricle Severely increased thickness of the basal septum with no obstruction to LV outflow. Wall thickness is moderately increased. There is no ventricular septal defect. Left ventricular systolic function is moderately reduced. Left ventricular ejection fraction is estimated visually at 35%. With beat to beat variation. There are segmental wall motion abnormalities. Right Ventricle The right ventricle is of normal size. Right ventricular systolic function is normal. Left Atrium The left atrium is normal. There is no evidence for a patent foramen ovale. Right Atrium The right atrium is normal. Aortic Valve The aortic valve is not well visualized. There is no aortic stenosis. The peak instantaneous gradient across the aortic valve is 12.4 mmHg. The mean gradient across the aortic valve is 7.2 mmHg. There is trace aortic regurgitation. Mitral Valve The mitral valve is structurally normal. There is no mitral stenosis. There is trace mitral regurgitation. Tricuspid Valve The tricuspid valve is structurally normal. There is no tricuspid stenosis. There is mild tricuspid regurgitation. Pulmonic Valve The pulmonic valve appears to be structurally normal. There is no valvular pulmonic stenosis. There is trace pulmonic valve regurgitation. Great Arteries 29mm aortic root replacement. The diameter at the level of the sinuses of Valsalva is 4.1 cm. There is an aortic graft in place. The maximum diameter of the proximal ascending aorta is 3.6 cm. Venous Inferior vena cava is normal in size. Inferior vena cava collapse less than 50% with respiration. Pericardium/Pleural There is no pericardial effusion. Epicardial fat is present. Hemodynamics The peak right ventricular systolic pressure is 28.0 mmHg . The estimated right atrial pressure is 8mmHg. Left ventricular diastolic function is abnormal. Unable to assess severity due to arrhythmia. ? 2D Measurements ? Volumes ?IVSd: 2.2 cm ? LAV(MOD-bp) Indexed: ?LVIDd: 5.6 cm ?LVPWd: 1.5 cm ?30.2 ml/m2 ?LV mass(C)d: 531.0 grams ? SV(LVOT): 91.2 ml ? SI(LVOT): 44.4 ml/m2 ?LV mass(C)dI: 258.8 grams/m2 ?Ao root diam: 4.1 cm ?Ao root diam index: 2.0 ?asc Aorta Diam: 3.6 cm ?LVOT diam: 2.6 cm ?TAPSE_phl: 1.7 cm Doppler TR max humza: 223.5 cm/sec RVSP(TR): 28.0 mmHg LV V1 VTI: 16.7 cm Ao V2 VTI: 25.0 cm Ao Max: 175.8 cm/sec Ao valve max: 12.4 mmHg Ao valve mean: 7.2 mmHg FINA(I,D): 3.6 cm2 Dimensionless index Aov: 0.67 I ?WMSI = 2.31 ? % Normal = 0 ?Segments ??Size X - Cannot ?? 1 - Normal ?? 2 - ? 3 - Akinetic 4 - ?1-2 ? small Interpret ? Hypokinetic ?Dyskinetic ?? 3-5 ? moderate 5 - ? 6-14 ?large Aneurysmal ?15-16 ?? diffuse Procedure Note Prince Guillory MD - 11/12/2022 Echocardiogram Report Name: CONNER DONNELLY Study Date: 311:54 AMBP: 114/81 mmHg Patient Location: : 1960 Height: 170 cm Account: [id number] Age: 62 yrs Weight: 94 kg Gender: Male BSA: 2.1 m2 Ordering Physician: GIAN SCHUSTER Referring Physician: YOMI BUTCHER Performed By: Freddie Palencia, GLORIA MONDRAGON Reason For Study: New on set A. Fib, S/P ascending aorta and rootreplacement, CABG Exam Location: [facility]. Interpretation Summary The patient is s/p AVR (bioprosthesis), CABG x 1V, and ascending aortagraft. History of bicuspid valve. The left ventricle is moderately dilated with moderately reducedsystolic function. The estimated LVEF is 35% with global hypokinesis and minorregional variation. Abnormal septal motion consistent with postoperative state isnoted. The RV is normal in size and systolic function. There is a bioprosthesis in the aortic position which is functioningnormally. Mean gradient 7mmHg. DI 0.67. Compared to the prior study 09/22/2022 there has been modest improvement inglobal left ventricular systolic function from a visual LVEF of 30-35% to 35%without a change in regional wall motion. Procedure Complete-[id number]. Satisfactory quality. Irregular rhythm. Left Ventricle Severely increased thickness of the basal septum with no obstruction toLV outflow. Wall thickness is moderately increased. There is no ventricularseptal defect. Left ventricular systolic function is moderately reduced. Leftventricular ejection fraction is estimated visually at 35%. With beat to beatvariation. There are segmental wall motion abnormalities. Right Ventricle The right ventricle is of normal size. Right ventricular systolic functionis normal. Left Atrium The left atrium is normal. There is no evidence for a patent foramenovale. Right Atrium The right atrium is normal. Aortic Valve The aortic valve is not well visualized. There is no aortic stenosis. Thepeak instantaneous gradient across the aortic valve is 12.4 mmHg. The meangradient across the aortic valve is 7.2 mmHg. There is trace aorticregurgitation. Mitral Valve The mitral valve is structurally normal. There is no mitral stenosis.There is trace mitral regurgitation. Tricuspid Valve The tricuspid valve is structurally normal. There is no tricuspidstenosis. There is mild tricuspid regurgitation. Pulmonic Valve The pulmonic valve appears to be structurally normal. There is novalvular pulmonic stenosis. There is trace pulmonic valve regurgitation. Great Arteries 29mm aortic root replacement. The diameter at the level of the sinuses ofValsalva is 4.1 cm. There is an aortic graft in place. The maximum diameter of theproximal ascending aorta is 3.6 cm. Venous Inferior vena cava is normal in size. Inferior vena cava collapse lessthan 50% with respiration. Pericardium/Pleural There is no pericardial effusion. Epicardial fat is present. Hemodynamics The peak right ventricular systolic pressure is 28.0 mmHg . The estimatedright atrial pressure is 8mmHg. Left ventricular diastolic function is abnormal.Unable to assess severity due to arrhythmia. 2D Measurements Volumes IVSd: 2.2 cm LAV(MOD-bp)Indexed: LVIDd: 5.6 cm LVPWd: 1.5 cm 30.2 ml/m2 LV mass(C)d: 531.0 grams SV(LVOT): 91.2ml SI(LVOT): 44.4ml/m2 LV mass(C)dI: 258.8 grams/m2 Ao root diam: 4.1 cm Ao root diam index: 2.0 asc Aorta Diam: 3.6 cm LVOT diam: 2.6 cm TAPSE_phl: 1.7 cm Doppler TR max humza: 223.5 cm/sec RVSP(TR): 28.0 mmHg LV V1 VTI: 16.7 cm Ao V2 VTI: 25.0 cm Ao Max: 175.8 cm/sec Ao valve max: 12.4 mmHg Ao valve mean: 7.2 mmHg FINA(I,D): 3.6 cm2 Dimensionless index Aov: 0.67 I WMSI = 2.31 % Normal = 0 SegmentsSize X - Cannot 1 - Normal 2 - 3 - Akinetic 4 - 1-2small Interpret Hypokinetic Dyskinetic 3-5moderate 5 - 6-14large Aneurysmal 15-16diffuse Gian Schuster MD ECHO ORDERABLES * EKG 12 Lead (10/10/2022 2:37 PM EDT) Ventricular rate 66 BPM MUSE SYSTEM QRS Duration 136 ms MUSE SYSTEM Q-T Interval 418 ms MUSE SYSTEM QTC Calculated (Bezet) 438 ms MUSE SYSTEM Calculated R [place] 32 degrees MUSE SYSTEM Calculated T [place] 163 degrees MUSE SYSTEM INTERPRETATION Atrial fibrillation Premature ventricular complexes Left ventricular hypertrophy with QRS widening and repolarization abnormality ( Adán product ) Abnormal ECG When compared with ECG of 23-SEP-2022 03:49, Atrial fibrillation has replaced Junctional rhythm Left bundle branch block is no longer Present Confirmed by MD Dominic, Dustin ([id number]) on 10/13/2022 8:18:54 AM MUSE SYSTEM 10/10/2022 2:37 PM EDT 10/13/2022 8:18 AM EDT Gian Schuster MD ECG ORDERABLES MUSE SYSTEM documented in this encounter Visit Diagnoses Diagnosis Atrial fibrillation, new onset Atrial fibrillation S/P AVR Heart valve replaced by other means Coronary artery disease, unspecified vessel or lesion type, unspecified whether angina present, unspecified whether [place] or transplanted heart Atrial fibrillation, new onset Atrial fibrillation documented in this encounter Care Teams Wrapper Counter Relationship Specialty Start Date End Date Tono Montero MD PCP - General Family Medicine 09/02/22 documented as of this encounter
--- OUTSIDE RECORDS SUMMARY | 2024-02-25 10:37 | XMS_ITS | Encounter Summary ---
Author Organization [facility] [place] [address] Care Team Providers Care Computational Biologist Name Role Phone Tono Montero MD Primary Care Provider [phone] Encounter Details Date Type Department Care Team (Late st Contact Info) Description 11/12/2022 Orders Only Cardiac [place] [phone] Mono Chavarria MD S/P aorta repair Social History Tobacco Use Types Packs/Day Years [...] on file documented as of this encounter Results * Creatinine (05/20/2023 11:22 AM EST) Creatinine 0.87 0.80 - 1.50 mg/dL [facility] Est Glomerular Filtration Rate 98 >=60 mL/min/1. 73 m?? [facility] Comment: This patient's estimated GFR was [...] Lab Mono Chavarria MD CHEMISTRY ORDERABLE S [facility] [place] [address] documented in this encounter Visit Diagnoses Diagnosis S/P aorta repair documented in this encounter Care Teams Computational Biologist Relationship Specialty Start Date End Date Tono Montero MD PCP - General Family Medicine 09/02/22 documented as of this encounter
--- OUTSIDE RECORDS SUMMARY | 2024-02-25 10:37 | XMS_ITS | Encounter Summary ---
[place] [address] Care Team Providers Care Funding Analyst Name Role Phone Tono Montero MD Primary Care Provider Encounter Details Date Type Department Care Team (Latest Contact Info) Description 10/07/2022 2:00 AM EDT Anti-Coag Telephone Visit [facility] [place] [phone] Eula aSlmon, [facility] S/P AVR; Atrial fibrillation, new onset Social History Tobacco Use Types Packs/Day Years [...] AM EDT documented as of this encounter Progress Notes * Eula Salmon RPH - 10/07/2022 2:00 AM EDT Images from the original note were not included. Anticoagulation Therapy Note Anticoagulation Summary As of 10/07/2022 INR goal: 2.0-3.0 TTR: -- INR used for dosin.5 (10/07/2022) Warfarin maintenance plan: 7.5 mg (5 mg x 1.5) every Wed; 5 mg (5 mg x 1) all other days; Starting 10/07/2022 Weekly warfarin total: 37.5 mg Plan last modified: Eula Salmon RPH (10/07/2022) Next INR check: 10/13/2022 Priority: 1 Week Target end date: 10/19/2022 Indications S/P AVR [Z95.2] Atrial fibrillation new onset [I48.91] Anticoagulation Episode Summary INR check location: [facility] Preferred lab: Send INR reminders to: [facility] Comments: Patient Prefers Cell [id number] Anticoagulation Care Providers Provider Role Specialty Phone number Mono Chavarria MD Referring Cardiothoracic Surgery [phone] Prabhjot Schuster MD Responsible Cardiology [phone] Patient Assessment Service Type: INR Test Result INR Result: In Range Clinical Outcomes Negatives: Major bleeding event, Thromboembolic event, Anticoagulation-related hospital admission, Anticoagulation-related ED visit Patient Findings Negatives: Upcoming Travel, Planning or Currently , Recent Fall, Signs/symptoms of thrombosis, Signs/symptoms of bleeding, Laboratory test error suspected, Change in health, Change in alcoholuse, Change in activity, Upcoming invasive procedure, Emergency department visit, Upcoming dental procedure, Missed doses, Extra doses, Change in medications, Change in diet/appetite, Hospital admission, Bruising, Other complaints Warfarin Therapy Instructions September 2022 Details Sun Mon e Wed Chelo Fri Sat 1 2 3 4 5 6 7 8 9 10 11 12 13 14 15 16 17 18 19 20 21 22 23 24 25 26 27 28 29 30 5 mg See details 31 7.5 mg Date Details 10/07 This INR check How to take your warfarin dose To take: 5 mg Take 1 of the 5 mg tablets. To take: 7.5 mg Take 1.5 of the 5 mg tablets. Warfarin Therapy Instructions October 2022 Details Sun Mon e Wed Chelo Fri Sat 1 5 mg 2 5 mg 3 5 mg 4 5 mg 5 5 mg 6 7 8 9 10 11 12 13 14 15 16 17 18 19 20 21 22 23 24 25 26 27 28 29 30 Date Details No additional details Date of next INR: 10/13/2022 How to take your warfarin dose To take: 5 mg Take 1 of the 5 mg tablets. Description 10/07/22: INR in range after receiving 42.5mg over the past week. Drug interaction with amiodarone is expected to take place over the next 1-2 weeks. For this reason I will drop dose down to 37.5mg/wk(12% dose reduction). Conner reports that [facility] will be back 10/02/22: INR remains unchanged after taking an average daily dose of 5.8mg over the past 3 days. Increase dose to an average daily dose of 6.5. Test INR Thursday. Confirmed Conner did not miss any dosesand is not experiencing any bleeding. [facility] was there and verbally accepted orders for INR Thursday, will fax orders as well. 09/29/22: Conner was discharged from [facility] on 09/27/22 after being admitted for Aortic Root Replacement with bioprosthetic AVR, CABGx1 on 09/18/22 and was referred to the [facility] for warfarin management. Warfarin indication is in question. Referral states indication is AVR with a treatment end date of 10/19/22 however discharge summary states indication is post-op atrial fibrillation. A high priority message was sent to [facility] LINDA Calix requesting clarification. I will also route note to responsible Laboratory Animal Facility Supervisor, Dr. Prabhjot Schuster. Tracker has been updated with inpatient warfarin dosing and discharge instructions. [facility] was instructed to test INR on 09/29/22. New medications upon discharge include amiodarone 200mg BID x 30 days. Other medications that may impact warfarin dosing include spironolactone 25mg daily. Patient is scheduled to follow up with Cardiology in October. Conner took his warfarin this morning but I advised him to start taking it at dinner time starting tomorrow. Dose increased from 5mg/day to an average daily dose of 5.8mg. INR due . Verbal orders given to [facility] today while at patient home and faxed as well. LINDA Calix clarified indication is post-op AF. Conner reports beinggiven thorough warfarin education inpatient and his only question today was regarding his h/o chronic bleeding hemorrhoids. Discussed instances that require medical attention. documented in this encounter Plan of Treatment Not on file documented as of this encounter Visit Diagnoses Diagnosis S/P AVR Heart valve replaced by other means Atrial fibrillation, new onset Atrial fibrillation documented in this encounter Care Teams Funding Analyst Relationship Specialty Start Date End Date Tono Montero MD PCP - General Family Medicine 09/02/22 documented as of this encounter
--- OUTSIDE RECORDS SUMMARY | 2024-02-25 10:37 | XMS_ITS | Encounter Summary ---
[place] [address] Care Team Providers Care Management Coordinator Name Role Phone Tono Montero MD Primary Care Provider [phone] Encounter Details Date Type Department Care Team (Late st Contact Info) Description 09/29/2022 Anti-Coag Telephone Visit [facility] [place] [phone] Eula Salmon, [facility] S/P AVR; Atrial fibrillation, new onset Social [...] this encounter Progress Notes * Eula Salmon [facility] - 09/29/2022 12:00 AM EDT Images from the original note were not included. Anticoagulation Therapy Note Anticoagulation Summary As of 09/29/2022 INR goal: 2.0-3.0 TTR: -- INR used for dosin.6 (09/29/2022) Warfarin maintenance plan: No maintenance plan Weekly warfarin total: 0 mg Plan last modified: Eula Salmon Valerie (09/29/2022) Next INR check: 10/02/2022 Target end date: 10/19/2022 Indications S/P AVR [Z95.2] Atrial fibrillation new onset [I48.91] Anticoagulation Episode Summary INR check location: [facility] Preferred lab: Send INR reminders to: [facility] Comments: Patient Prefers Cell [facility]. Anticoagulation Care Providers Provider Role Specialty Phone number Mono Chavarria MD Referring Cardiothoracic Surgery [phone] Prabhjot Schuster MD Responsible Cardiology [phone] Patient Assessment Service Type: New Patient Consult Type: New Start Patient Findings Positives: Signs/symptoms of bleeding (H/O chronic hemorrhoids that do bleed), Change in health, Change in activity (recent admission), Change in medications (Amiodarone load started 09/21/22), Changein diet/appetite (recent admission), Hospital admission ([facility] 09/18-09/28/22: Aortic Root Replacementwith bioprosthetic AVR, CABGx1) Warfarin Therapy Instructions September 2022 Details Sun Thu Sat 1 2 3 4 5 6 7 8 9 10 11 12 13 14 15 16 17 18 19 20 21 22 7.5 mg See details 23 5 mg 24 5 mg 25 26 27 28 29 30 31 Date Details 09/29 This INR check Date of next INR: 10/02/2022 How to take your warfarin dose To take: 5 mg Take 1 of the 5 mg tablets. To take: 7.5 mg Take 1.5 of the 5 mg tablets. Description 09/29/22: Conner was discharged from [facility] on 09/27/22 after being admitted for Aortic Root Replacement with bioprosthetic AVR, CABGx1 on 09/18/22 and was referred to the [facility] for warfarin management. Warfarin indication is in question. Referral states indication is AVR with a treatment end date of 10/19/22 however discharge summary states indication is post-op atrial fibrillation. A high priority message was sent to [facility] LINDA Calix requesting clarification. I will also route note to responsible Frame Cleaner, Dr. Prabhjot Schuster. Tracker has been updated [...] hemorrhoids. Discussed instances that require medical attention. Counseling: ? Warfarin indication: This medication is an anticoagulant or blood thinner. It can be used to treat or prevent blood clots. Warfarin will be used for patient specific indication atrial fibrillation. ? Dosing: Warfarin should be taken in the evening without regards to meals. It is important to try to take this medication at the same time every day and to not miss any doses. If you do miss a dose,take it as soon as you remember if it is within a few hours of the missed dose, otherwise wait until the next dose is due and do not double doses ? Tablet strength: You have been prescribed the 5 tablet which should be peach in color. Please call the clinic if you ever receive a different colored tablet. ? INR: Your INR or (International normalized ratio) is a blood test that tells us how thin your blood is. The higher the INR value, the thinner your blood and vice versa. Your current INR goal is 2.0-3.0. You may need for frequent INR checks when starting warfarin until we can reach your goal INR. ? Adherence: It is extremely important to take this medication every day. Some ways to help remember to take your medication include alarms, calendar notes, or pill boxes. ? Adverse reactions: Some of the most common side effects of this medication include bleeding or bruising. ? Please contact your doctor right away if you experience: o Notice bloody or black, tarry stools; red or dark-brown urine, spitting or coughing up blood or coffee ground like material. documented in this encounter Plan of Treatment Not on file documented as of this encounter Visit Diagnoses Diagnosis S/P AVR Heart valve replaced by other means Atrial fibrillation, new onset Atrial fibrillation documented in this encounter Care Teams Management Coordinator Relationship Specialty Start Date End Date Tono Montero MD PCP - General Family Medicine 09/02/22 documented as of this encounter
--- OUTSIDE RECORDS SUMMARY | 2024-02-25 10:37 | XMS_ITS | Encounter Summary ---
Author [place] [address] Care Team Providers Care Uplands Division Director Name Role Phone Tono Montero MD Primary Care Provider [phone] Encounter Details Date Type Department Care Team (Late st Contact Info) Description 10/07/2022 External Results [facility] Centralized [place] [address] Nicki Clay Social History Tobacco Use Types Packs/Day Years [...] Procedure Name Priority Date/Time Associated Diagnosis Comments EXTERNAL INR RESULTS PANEL Routine 10/07/2022 1:07 PM EDT documented in this encounter Results * External INR Results Panel (10/07/2022 1:07 PM EDT) INR, POC 2.5 0.9 - 1.1 VISITING NURSE Comment:[place] [facility] 10/07/2022 1:07 PM EDT Historical Provider EXTERNAL LAB [facility] VISITING NURSE documented in this encounter Visit Diagnoses Not on filedocumented in this encounter Care Teams Uplands Division Director Relationship Specialty Start Date End Date Tono Montero MD PCP - General Family Medicine 09/02/22 documented as of this encounter
--- OUTSIDE RECORDS SUMMARY | 2024-02-25 10:37 | XMS_ITS | Encounter Summary ---
Author Organization [facility] Address [facility] [place] [address] Care Team Providers Care Dyeing Machine Tender Name Role Phone Tono Montero MD Primary Care Provider [phone] Encounter Details Date Type Department Care Team (Late st Contact Info) Description 04/16/2023 Orders Only Cardiology at [address] [phone] Prabhjot Schuster MD [facility] [place] [address] Atrial fibrillation, unspecified type (Primary Dx) Social History Tobacco Use Types Packs/Day Years [...] as of this encounter Visit Diagnoses Diagnosis Atrial fibrillation, unspecified type- Primary documented in this encounter Care Teams Dyeing Machine Tender Relationship Specialty Start Date End Date Tono Montero MD PCP - General Family Medicine 09/02/22 documented as of this encounter
--- OUTSIDE RECORDS SUMMARY | 2024-02-25 10:37 | XMS_ITS | Encounter Summary ---
Author [place] [address] Care Team Providers Care Senior Systems Programmer Name Role Phone Tono Montero MD Primary Care Provider Encounter Details Date Type Department Care Team (Late st Contact Info) Description 11/12/2022 1:20 PM EDT Office [place] [address] Mono Chavarria MD S/P AVR (Primary Dx); Atrial fibrillation, new onset; Coronary artery disease, unspecified vessel or lesion type, unspecified whether angina present, unspecified whether [place] or transplanted heart Social History Tobacco Use [...] Sign Reading Time Taken Comments Blood Pressure 141/90 11/12/2022 1:10 PM EDT Pulse 81 11/12/2022 1:10 PM EDT Temperature - - Respiratory Rate - - Oxygen Saturation 99% 11/12/2022 1:10 PM EDT Inhaled Oxygen Concentration - - Weight 95.7 kg (211 lb) 11/12/2022 1:10 PM EDT Height 170.2 cm (5' 7) 11/12/2022 1:10 PM EDT Body Mass Index 33.05 11/12/2022 1:10 PM EDT documented in this encounter Progress Notes * Isaura Ruby PA - 11/12/2022 1:20 PM EDT Cardiac Surgery Clinic Note: ID: [id number] Cardiac Surgery Attending: Mono Chavarria MD Tie Mill Operator: Prabhjot Schuster MD S: Patient is a 62yo male known to our service as he underwent aortic root replacement and CABGx1 to RCA with Dr. Chavarria on 09/18/22. Patient presented with hx of chronic systolic heart failure, EF 44% (TTE 09/03). He was optimized medically postop with betablocker, ARB, and diuretic therapy. He also developed postop AF that was treated with amiodarone, metoprolol, and coumadin. He continued to make good progress postop and was discharged home POD9. Since discharge he has had issues with bradycardia in the 40s leading to reduction of his metoprolol to 12.5 BID and ultimately discontinuation of his amiodarone. He was seen by cardiology, Dr. Stack, on 10/10 where he remained in AF. His AC dumont s since been switched to Eliquis. No complaints today. CXR: IMPRESSION Stable to decreased small left pleural effusion TTE: Reviewed by Dr. Chavarria, LV function remains reduced Current medications: Outpatient Medications Marked as Taking for the 11/12/22 encounter (Office Visit) with Mono Chavarria MD Medication Sig Dispense Refill apixaban (Eliquis) 5 mg tablet Take 1 [...] 2 tablets by mouth every 6 hours. torsemide (Demadex) 20 mg tablet Take 1 [...] as needed for Wheezing. Use with spacer O: Vitals: 11/12/22 1310 BP: 141/90 Pulse: 81 SpO2: 99% Weight: 95.7 kg (211 lb) Height: 170.2 cm (5' 7) Physical exam: General: no acute distress, well appearing Pulm: non-labored Cardiac: irregular rate and rhythm, without murmur/gallop/rub MSKL: sternum stable Neuro: A&Ox4, no focal deficits Integ: incision healing well, clean, dry, intact Assessment/Plan: 62yo male s/p aortic root replacement and CABGx1, chronic systolic heart failure. - Seen with Dr. Chavarria. Continue current therapy, low dose BB, losartan, torsemide, and spironolactone. - Will continue to follow patient. Plan for follow up in 2-[address] chest with contrast - Follow up with Dr. Schuster in 1 month for AF - Patient should remain off work for the full 3 month course postop (until 12/11/22) due to lifting restrictions with his sternal precautions. Signed: Isaura Ruby PA-C [facility] Section of Cardiac Surgery 11/12/2022 documented in this encounter Plan of Treatment Not on file documented as of this encounter Visit Diagnoses Diagnosis S/P AVR- Primary Heart valve replaced by other means Atrial fibrillation, new onset Atrial fibrillation Coronary artery disease, unspecified vessel or lesion type, unspecified whether angina present, unspecified whether [place] or transplanted heart documented in this encounter Care Teams Senior Systems Programmer Relationship Specialty Start Date End Date Tono Montero MD PCP - General Family Medicine 09/02/22 documented as of this encounter
--- OUTSIDE RECORDS SUMMARY | 2024-02-25 10:37 | XMS_ITS | Encounter Summary ---
Author Organization [facility] Address [facility] [place] [address] Care Team Providers Care Point Of Care Specialist Name Role Phone Tono Montero MD Primary Care Provider [phone] Encounter Details Date Type Department Care Team (Late st Contact Info) Description 10/01/2022 [place] [phone] Reynaldo Stack MD [facility] [place] [address] Social History Tobacco Use Types Packs/Day Years Used Date Smoking Tobacco: Former Cigarettes 1 45 0 08/23/1977 - 08/23/2022 e-Cigarettes Smokeless Tobacco: Never Alcohol Use Standard Drinks/Week Comments Yes 0 (1 standard drink = 0.6 oz pur e alcohol) No ETOH since 4.. IPV Inpatient Questions Answer Date Recorded Does [...] on filedocumented in this encounter Care Teams Point Of Care Specialist Relationship Specialty Start Date End Date Tono Montero MD PCP - General Family Medicine 09/02/22 documented as of this encounter
--- OUTSIDE RECORDS SUMMARY | 2024-02-25 10:37 | XMS_ITS | Encounter Summary ---
Author Organization [facility] [place] [address] Care Team Providers Care Bag Bailer Name Role Phone Tono Montero MD Primary Care Provider [phone] Encounter Details Date Type Department Care Team (Late st Contact Info) Description 02/12/2023 Telephone Cardiology at [address] [phone] Renetta Dorsey RN Social History Tobacco Use Types Packs/Day Years [...] encounter Miscellaneous Notes * Telephone Encounter - Renetta Dorsey RN - 02/12/2023 9:37 AM EDT Patient called with a message ( FYI) that he is considering going on disability. 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 It's not something he wants to do but feels it may be necessary. Patient has a F/U appt. scheduled 03/04/23 and he will discuss this more with Dr. Min. Renetta Manzano RN [facility] documented in this encounter Plan of Treatment Not on file documented as of this encounter Visit Diagnoses Not on filedocumented in this encounter Care Teams Bag Bailer Relationship Specialty Start Date End Date Tono Montero MD PCP - General Family Medicine 09/02/22 documented as of this encounter
--- OUTSIDE RECORDS SUMMARY | 2024-02-25 10:37 | XMS_ITS | Encounter Summary ---
[place] [address] Care Team Providers Care Finishing Department Supervisor Name Role Phone Tono Montero MD Primary Care Provider [phone] Encounter Details Date Type Department Care Team (Late st Contact Info) Description 10/09/2022 Orders Only [facility] [place] [address] Thiago Nava, [facility] Atrial fibrillation, new onset Social History Tobacco Use Types Packs/Day Years Used Date Smoking Tobacco: Former Cigarettes 1 45 0 08/23/1977 - 08/23/2022 e-Cigarettes Smokeless Tobacco: Never Alcohol Use Standard Drinks/Week Comments Yes 0 (1 standard drink = 0.6 oz pur e alcohol) No ETOH since 4.1.23 IPV Inpatient Questions Answer Date Recorded Does [...] as of this encounter Miscellaneous Notes * Addendum Note - Thiago Nava [facility] - 10/09/2022 1:13 PM EDTAddended by: THIAGO NAVA on: 10/09/2022 01:56 PM Modules accepted: Orders documented in this encounter Plan of Treatment Not on file documented as of this encounter Visit Diagnoses Diagnosis Atrial fibrillation, new onset Atrial fibrillation documented in this encounter Care Teams Finishing Department Supervisor Relationship Specialty Start Date End Date Tono Montero MD PCP - General Family Medicine 09/02/22 documented as of this encounter
--- OUTSIDE RECORDS SUMMARY | 2024-02-25 10:37 | XMS_ITS | Encounter Summary ---
Author Organization [facility] [place] [address] Care Team Providers Care Payroll Clerk Name Role Phone Tono Montero MD Primary Care Provider [phone] Encounter Details Date Type Department Care Team (Late st Contact Info) Description 10/13/2022 Orders [place] [id number] Mono Chavarria MD S/P AVR Social History Tobacco Use Types [...] documented as of this encounter Results * XR Chest PA & Lateral (Generic) (11/12/2022 10:41 AM EDT) Anatomical Region Laterality Modality Chest N/A Digital Radiogra phy Impressions 11/12/2022 12:08 PM EDT Stable to decreased small left pleural effusion I have personally reviewed the image(s) and the resident's interpretation and agree with the findings, Christiano Gore MD at 11/12/2022 12:08 PM Thank you for letting us participate in the care of this patient. ??If you are a health care provider and have any questions regarding this report, please contact the number below. ??For patients who have questions please contact the health careers counsellor that requested your imaging first. ? Electronically signed by: Christiano Gore MD, [facility] ??([phone]), at 11/12/2022 12:08 PM Narrative 11/12/2022 12:08 PM EDT EXAMINATION: XR CHEST PA AND LATERAL (GENERIC) CLINICAL HISTORY: s/p aortic root replacement and cabg TECHNIQUE: PA and lateral views of the chest COMPARISON: Multiple prior chest radiograph examinations, the most recent which is dated 09/22/2022. FINDINGS: Stable enlargement of the cardiac silhouette status post median sternotomy and aortic valve replacement Stable to decreased small left pleural effusion. No pneumothorax. Procedure Note Christiano Gore MD - 11/12/2022 EXAMINATION: XR CHEST PA AND LATERAL (GENERIC) CLINICAL HISTORY: s/p aortic root replacement and cabg TECHNIQUE: PA and lateral views of the chest COMPARISON: Multiple prior chest radiograph examinations, the most recentwhich is dated 09/22/2022. FINDINGS: Stable enlargement of the cardiac silhouette status post median sternotomyand aortic valve replacement Stable to decreased small left pleural effusion. No pneumothorax. IMPRESSION Stable to decreased small left pleural effusion I have personally reviewed the image(s) and the resident's interpretationand agree with the findings, Christiano Gore MD at 11/12/2022 12:08 PM Thank you for letting us participate in the care of this patient. If youare a health care provider and have any questions regarding this report,please contact the number below. For patients who have questions please contactthe health careers counsellor that requested your imaging first. Electronically signed by: Christiano Gore MD, [facility]([phone]), at 11/12/2022 12:08 PM Mono Chavarria MD IMG DX ORDERABLES documented in this encounter Visit Diagnoses Diagnosis S/P AVR Heart valve replaced by other means S/P AVR Heart valve replaced by other means documented in this encounter Care Teams Payroll Clerk Relationship Specialty Start Date End Date Tono Montero MD PCP - General Family Medicine 09/02/22 documented as of this encounter
--- OUTSIDE RECORDS SUMMARY | 2024-02-25 10:37 | XMS_ITS | Encounter Summary ---
Author Organization [facility] Address [facility] [place] [address] Care Team Providers Care Quick Service Technician Name Role Phone Tono Montero MD Primary Care Provider Reason for Referral * Diagnostic Test (Routine) - Closed Specialty Diagnoses / Procedures Referred By Contac t Referred To Contact Cardiology Diagnoses HFrEF (heart failure with reduced ejection fraction) Procedures Echocardiogram Transthoracic Gian Schuster MD [facility] [place] [place] [address] [facility] [place] [address] Referral ID Status Reason Start Date Expiration Date V isits Requested Visits Authorized [id number] Closed Specialty Service Requested 03/06/2023 03/05/2024 1 1 Encounter Details Date Type Department Care Team (Late st Contact Info) Description 03/04/2023 4:20 PM EDT Office Visit Cardiology at [address] [phone] Gian Schuster MD [facility] [place] [address] Coronary artery disease, unspecified vessel or lesion type, unspecified whether angina present, unspecified whether salt river or transplanted heart; Atrial fibrillation, new onset; HFrEF (heart failure with reduced ejection fraction); Aortic root dilatation Social History Tobacco Use Types Packs/Day Years [...] Sign Reading Time Taken Comments Blood Pressure 108/83 03/04/2023 3:54 PM EDT Pulse 81 03/04/2023 3:54 PM EDT Temperature - - Respiratory Rate - - Oxygen Saturation 98% 03/04/2023 3:54 PM EDT Inhaled Oxygen Concentration - - Weight 99.7 kg (219 lb 12.8 oz) 03/04/2023 3:54 PM EDT Height 170.2 cm (5' 7) 03/04/2023 3:54 PM EDT Body Mass Index 34.43 03/04/2023 3:54 PM EDT documented in this encounter Progress Notes * Gian Schuster MD - 03/04/2023 4:20 PM EDT Images from the original note were not included. Former[facility] [place] [address] [place] [address] CARDIOLOGY OUTPATIENT PROGRESS NOTE PRIMARY CARE PROVIDER: Tono Montero MD REFERRING PROVIDER: Tono Montero IDENTIFICATION: Addis Donnelly is a 62 y.o. patient who presents to clinic for follow-up. Cardiology Problem List: Severe bicuspid aortic valve stenosis and ascending aortic aneurysm s/p bioprosthetic AVR / aortic root replacement (29 mm connect composite tissue root) CAD (pRCA 60%) s/p CABG x 1 (09/18/2022) HFrEF (LVEF 30-40% in September 2022) HTN HLD Afib SUBJECTIVE/INTERVAL HISTORY: Addis Donnelly was last seen in Cardiology on 10/10/2022. Since that visit, Addis Donnelly reports: Overall, doing ok but energy remains low. Dyspnea with significant exertion. Difficulty bending down/standing up. Palpitations intermittently. No missed doses of DOAC. No orthopnea or PND. No chest pain. No dizziness or syncope. PROBLEM LIST: Patient Active Problem List Diagnosis Atrial fibrillation, new onset S/P AVR CAD (coronary artery disease) Aortic stenosis Sleep apnea questionable, sleep center scheduled for 07/09/15 Pleuritic chest pain HTN (hypertension) MEDICATIONS: Current Outpatient Medications Medication Sig Dispense Refill torsemide (Demadex) 20 mg tablet Take 1 tablet by mouth daily. 30 tablet 5 apixaban (Eliquis) 5 mg [...] Cigarettes, e-Cigarettes Quit date: 08/23/2022 Years since quittin.5 Smokeless tobacco: Never Vaping Use Vaping Use: [...] Not on file Objective: PHYSICAL EXAM: BP 108/83 (BP Location (NBP): Left arm, Patient Position: Sitting, BP Cuff Sizes: Adult (25-34 cm)) Pulse 81 Ht 170.2 cm (5' 7) Wt 99.7 kg (219 lb 12.8 oz) SpO2 98% BMI 34.43 kg/m?? , Bodymass index is 34.43 kg/m??. General: Very pleasant. No distress. Skin: Warm and dry. HEENT: Anicteric sclera. Neck: JVP not elevated at 60 degrees. No HJR. No carotid bruits bilaterally. Chest: Clear to auscultation bilaterally, normal resp effort. Heart: No heave. Irregularly irregular rhythm. Normal S1 and S2. No gallops. No murmurs. Abdomen: Nondistended. Soft. Nontender. + bowel tones Extremities: No pretibial edema bilaterally, 2+ radial pulses rachael, 2+ dorsal pedal pulses bilaterally PROMOTIONS EXECUTIVE: Normal mentation. Psych: Appropriate affect. Labs: Lab [...] 09/03/2022 TRIG 132 09/03/2022 LDLCHOL 41 09/03/2022 TTE 11/12/22: The patient is s/p AVR [...] without a change in regional wall motion. ECG obtained in clinic: Coarse afib, IVCD Assessment and Plan: # Aortic valve replacement for severe bicuspid # Aortic root replacement # Afib # [id number] # HFrEF # ASCVD s/p [id number] Warm, well perfused, clinically appears to be euvolemic. Does not describe anginal symptoms but rather fatigue. ? Secondary to afib. No clinical evidence of decompensated heart failure. PCP has appropriately lowered BB and added Jardiance. - Offered DCCV (pt has not missed any doses of DOAC). Pt wishes to reconsider after May. - Blood pressure is low; if continues to be low, can consider further decreasing losartan to 12.5mgPO qday if not off. - Continue Jardiance, diuretics, MRA - Recheck labs - Continue DOAC - No need for ischemic testing at this time. - Reassess LV function in 6 months. Return to clinic in: DCCV potentially in May (reminder added), follow up in 6 months or sooner if needed. All questions answered. Strict return precautions given. Thank you for the opportunity to participate in this patient's cardiovascular care. All questions were answered and I look forward to the next visit. Gian Schuster MD [facility] Cardiology, [facility] documented in this encounter Plan of Treatment Not on file documented as of this encounter Procedures Procedure Name Priority Date/Time Associated Diagnosis Comments EKG 12-LEAD Routine 03/04/2023 4:21 PM EDT documented in this encounter Results * ECHO COMPLETE (01/15/2024 9:08 AM EDT) Anatomical Region Laterality Modality Cardiac Other 01/15/2024 8:18 AM EDT Narrative 01/15/2024 9:51 AM EDT [address] [place] [address] ? Echocardiogram Report Name: ADDIS DONNELLY ?Study Date: 01/15/2024 08:18 AMBP: 111/71 mmHg ? Patient Location: 4A : 1960 ? Height: 170 cm ? Account: [id number] Age: 63 yrs ? Weight: 106 kg Gender: Male ?BSA: 2.2 m2 Ordering Physician: GIAN SCHUSTER Referring Physician: GIAN SCHUSTER Performed By: GLORIA Pedroza Reason For Study: HFrEF Exam Location: [facility]. Interpretation Summary -Left ventricle is mildly [...] there has been no significnat change. Procedure Complete-[id number]. Satisfactory quality. The rhythm is atrial fibrillation. [...] Note Johann Don MD - 01/15/2024 [address] [place] [address] Echocardiogram Report Name: ADDIS DONNELLY Study Date: 408:18 AMBP: 111/71 mmHg Patient Location: 4A : 1960 Height: 170 cm Account: [id number] Age: 63 yrs Weight: 106 kg Gender: Male BSA: 2.2 m2 Ordering Physician: GIAN SCHUSTER Referring Physician: GIAN SCHUSTER Performed By: GLORIA Pedroza Reason For Study: HFrEF Exam Location: [facility]. Interpretation Summary -Left ventricle is mildly [...] 05/20/2023, there has been no significnatchange. Procedure Complete-[id number]. Satisfactory quality. The rhythm is atrial fibrillation. [...] 15-16diffuse Gian Schuster MD ECHO ORDERABLES * (ABNORMAL) pro-Brain Natriuretic Peptide (05/20/2023 11:22 AM EST) NT-proBNP 302(H) <=124 pg/mL [facility] Blood 05/20/2023 11:2 2 AM EST 05/20/2023 11:28 AM EST Narrative Resulting Agency Comment Spec In Lab Gian Schutser MD CHEMISTRY ORDERABLES [facility] [place] [address] * Comprehensive metabolic panel (non-fasting) (05/20/2023 11:22 AM EST) Glucose 91 65 - 199 mg/dL [facility] Comment:Diabetes: >=200 mg/d L plus symptoms Blood Urea Nitrogen 10 10 - 20 mg/dL [facility] Creatinine 0.87 0.80 - 1.50 mg/dL [facility] Sodium 140 135 - 145 mmol/L [facility] Potassium 4.9 3.5 - 5.0 mmol/L [facility] Comment: Please note: ??Patients with WBC >100,000 may have falsely elevated Potassium levels. ??For accurate Potassium quantification in these patients send serum separator tube (gold top) for subsequent determinations. ??Contact the Clinical Chemistry Laboratory if there are any questions. Chloride 103 98 - 107 mmol/L [facility] Carbon Dioxide 26 22 - 31 mmol/L [facility] Anion Gap 11 5 - 15 mmol/L [facility] Calcium 9.5 8.5 - 10.5 mg/dL [facility] Protein, Total 7.3 6.1 - 8.0 g/dL [facility] Albumin 4.4 3.2 - 5.2 g/dL [facility] Aspartate Aminotransferase 20 0 - 39 unit/L [facility] Alanine Aminotransferase 25 0 - 55 unit/L [facility] Alkaline Phosphatase 60 40 - 130 unit/L [facility] Bilirubin, Total 0.6 0.2 - 1.3 mg/dL [facility] Est Glomerular Filtration Rate 98 >=60 mL/min/1. 73 m?? [facility] Comment: This patient's estimated GFR was [...] In Lab Gian Schuster MD CHEMISTRY ORDERABLES [facility] [place] [address] * EKG 12 Lead (03/04/2023 4:21 PM EDT) Ventricular rate 83 BPM MUSE SYSTEM QRS Duration 124 ms MUSE SYSTEM Q-T Interval 394 ms MUSE SYSTEM QTC Calculated (Bezet) 462 ms MUSE SYSTEM Calculated R [place] 27 degrees MUSE SYSTEM Calculated T [place] 132 degrees MUSE SYSTEM INTERPRETATION Atrial fibrillation with premature ventricular or aberrantly conducted complexes Non-specific intra-ventricula r conduction delay ST & T wave abnormality, consider inferolateral ischemia Abnormal ECG When compared with ECG of 10-OCT-2022 14:37, Premature ventricular complexes are no longer Present Nonspecific T wave abnormality has replaced inverted T waves in Anterior leads Confirmed by MD Mirna, Marvel ([id number]) on 03/05/2023 6:30:15 PM MUSE SYSTEM 03/04/2023 4:21 PM EDT 03/05/2023 6:30 PM EDT Unknown ECG ORDERABLES MUSE SYSTEM documented in this encounter Visit Diagnoses Diagnosis Coronary artery disease, unspecified vessel or lesion type, unspecified whether angina present, unspecified whether salt river or transplanted heart Atrial fibrillation, new onset Atrial fibrillation HFrEF (heart failure with reduced ejection fraction) Aortic root dilatation Thoracic aortic ectasia HFrEF (heart failure with reduced ejection fraction) documented in this encounter Care Teams Quick Service Technician Relationship Specialty Start Date End Date Tono Montero MD PCP - General Family Medicine 09/02/22 documented as of this encounter
--- OUTSIDE RECORDS SUMMARY | 2024-02-25 10:37 | XMS_ITS | Encounter Summary ---
Author Organization [facility] Address [facility] [place] [address] Care Team Providers Care Urban Forester Name Role Phone Tono Montero MD Primary Care Provider [phone] Reason for Visit * Reason Comments Medication Refill Encounter Details Date Type Department Care Team (Late st Contact Info) Description 10/23/2022 Refill [place] [address] Trino Calix, [facility] [place] [address] Social History Tobacco Use Types Packs/Day Years Used Date Smoking Tobacco: Former Cigarettes 1 45 0 08/23/1977 - 08/23/2022 e-Cigarettes Smokeless Tobacco: Never Alcohol Use Standard Drinks/Week Comments Yes 0 (1 standard drink = 0.6 oz pur e alcohol) No ETOH since 08.09.22 [facility] Inpatient Questions Answer Date Recorded Does Anyone [...] on filedocumented in this encounter Care Teams Urban Forester Relationship Specialty Start Date End Date Tono Montero MD PCP - General Family Medicine 09/02/22 documented as of this encounter
--- OUTSIDE RECORDS SUMMARY | 2024-02-25 10:37 | XMS_ITS | Encounter Summary ---
Author Organization [facility] Address [facility] [place] [address] Care Team Providers Care Housing Project Manager Name Role Phone Tono Montero MD Primary Care Provider [phone] Encounter Details Date Type Department Care Team (Latest Contact Info) Description 03/02/2023 Travel Social History Tobacco Use Types Packs/Day [...] on filedocumented in this encounter Care Teams Housing Project Manager Relationship Specialty Start Date End Date Tono Montero MD PCP - General Family Medicine 09/02/22 documented as of this encounter
--- OUTSIDE RECORDS SUMMARY | 2024-02-25 10:37 | XMS_ITS | Encounter Summary ---
Author Organization [facility] Address [facility] [place] [address] Care Team Providers Care Loss Prevention Lead Name Role Phone Tono Montero MD Primary Care Provider [phone] Encounter Details Date Type Department Care Team (Late st Contact Info) Description 05/09/2023 [place] [phone] Jason Charlton Jr., MD [facility] [place] [address] Social History Tobacco Use Types Packs/Day Years [...] encounter Miscellaneous Notes * Telephone Encounter - Jason Charlton Jr., MD - 05/09/2023 2:08 PM EST Pt called regarding question on [employer]. documented in this encounter Plan of Treatment Not on file documented as of this encounter Visit Diagnoses Not on filedocumented in this encounter Care Teams Loss Prevention Lead Relationship Specialty Start Date End Date Tono Montero MD PCP - General Family Medicine 09/02/22 documented as of this encounter
--- OUTSIDE RECORDS SUMMARY | 2024-02-25 10:37 | XMS_ITS | Encounter Summary ---
Author Organization [facility] [place] [address] Care Team Providers Care Program Control Analyst Name Role Phone Tono Montero MD Primary Care Provider [phone] Encounter Details Date Type Department Care Team (Late st Contact Info) Description 12/23/2022 Telephone Cardiology at [address] [phone] Evelia De La Cruz RN Social History Tobacco Use Types Packs/Day Years Used Date Smoking Tobacco: Former Cigarettes 1 45 0 08/23/1977 - 08/23/2022 e-Cigarettes Smokeless Tobacco: Never Alcohol Use Standard Drinks/Week Comments Yes 0 (1 standard drink = 0.6 oz pur e alcohol) No ETOH since 4 [facility] Inpatient Questions Answer Date Recorded Does [...] encounter Miscellaneous Notes * Telephone Encounter - Evelia De La Cruz RN - 12/31/2022 8:[address] Schuster sends the following response to me on 12/29/22- I called Mr. Donnelly and answered his questions. Irregular breathing that he attributes to afib; overall feels much better post- op than preop. Looking to return to work after 01/25/23. Advised pt to limit to 20# first week and then increase by10 # per week if asymptomatic until reaches 50# and then no restrictions aside from standard bleeding precautions due to DOAC. Will provide pt a letter for work by the end of the day through the portal. Reinforced antibiotic prophylactics indefinitely. Refilled torsemide. Pt to keep 03/04 follow-up appointment with me. Prabhjot Wright * Telephone Encounter - Evelia De La Cruz RN - 12/23/2022 12:00 PM EDT Return call to patient asking for a call from Dr. Schuster. He would like to speak with Dr. Schuster about when he can return to work as his Cardiac Rehab will be complete in January and his appointment with Dr. Schuster is not until 03/04/23. Patient phone number [phone]. Patient understands that Dr. Schuster is away this week so he may not get back to the patient until his return - Mr. Donnelly verbalized his understanding and is agreeable to this time frame. He has no other concerns at this time. Patient knows how to contact Cardiology office and understands they may do so at any time with further questions or concerns.\ Evelia De La Cruz RN, BSN Ambulatory Cardiology Department Covering for Renetta Dorsey RN documented in this encounter Plan of Treatment Not on file documented as of this encounter Visit Diagnoses Not on filedocumented in this encounter Care Teams Program Control Analyst Relationship Specialty Start Date End Date Tono Montero MD PCP - General Family Medicine 09/02/22 documented as of this encounter
--- OUTSIDE RECORDS SUMMARY | 2024-02-25 10:37 | XMS_ITS | Encounter Summary ---
[place] [address] Care Team Providers Care Dye Expert Name Role Phone Tono Montero MD Primary Care Provider [phone] Encounter Details Date Type Department Care Team (Latest Contact Info) Description 10/02/2022 2:00 AM EDT Anti-Coag Telephone Visit [facility] [place] [phone] Eula Salmon, [facility] S/P AVR; Atrial fibrillation, new [...] Progress Notes * Eula Salmon RPH - 10/02/2022 2:00 AM EDT Images from the original note were not included. Anticoagulation Therapy Note Anticoagulation Summary As of 10/02/2022 INR goal: 2.0-3.0 TTR: -- INR used for dosin.6 (10/02/2022) Warfarin maintenance plan: No maintenance plan Plan last modified: Eula Salmon RPH (09/29/2022) Next INR check: 10/07/2022 Target end date: 10/19/2022 Indications S/P AVR [Z95.2] Atrial fibrillation new onset [I48.91] Anticoagulation Episode Summary INR check location: [facility] Preferred lab: Send INR reminders to: [facility] Comments: Patient Prefers Cell [facility] Anticoagulation Care Providers Provider Role Specialty Phone number Mono Chavarria MD Referring Cardiothoracic Surgery [phone] MinPrabhjot MD Responsible Cardiology [phone] Patient Assessment Service Type: INR Test Result INR Result: Out of Range Clinical Outcomes Negatives: Major bleeding event, [...] in diet/appetite, Hospital admission, Bruising, Other complaints Comments: No changes from intake on 09/29/22 Warfarin Therapy Instructions September 2022 Details Sun Mon Thu Wed [place] Fri Sat 1 2 3 4 5 6 7 8 9 10 11 12 13 14 15 16 17 18 19 20 21 22 23 24 25 7.5 mg See details 26 7.5 mg 27 7.5 mg 28 5 mg 29 5 mg 30 31 Date Details 10/02 This INR check Date of next INR: 10/07/2022 How to take your warfarin dose To take: 5 mg Take 1 of the 5 mg tablets. To take: 7.5 mg Take 1.5 of the 5 mg tablets. Description 10/02/22: INR remains unchanged after taking an average daily dose of 5.8mg over the past 3 days. Increase dose to an average daily dose of 6.5. Test INR Thursday. Confirmed Conner did not miss any dosesand is not experiencing any bleeding. [facility] was there and verbally accepted orders for INR Thursday, will fax orders as well. 09/29/22: Conner was discharged [place] [facility] [place] [facility]22 after being admitted for Aortic Root Replacement with bioprosthetic AVR, CABGx1 on 09/18/22 and was referred to the [facility] for warfarin management. Warfarin indication is in question. Referral states indication is AVR with a treatment end date of 10/19/22 however discharge summary states indication is post-op atrial fibrillation. A high priority message was sent to [facility] Calix requesting clarification. I will also route note to responsible Roller Checker, Dr. Prabhjot Schuster. Tracker has been updated [...] fibrillation documented in this encounter Care Teams Dye Expert Relationship Specialty Start Date End Date Tono Montero MD PCP - General Family Medicine 09/02/22 documented as of this encounter
--- OUTSIDE RECORDS SUMMARY | 2024-02-25 10:37 | XMS_ITS | Encounter Summary ---
Author Organization [facility] Address [facility] [place] [address] Care Team Providers Care Converting Supervisor Name Role Phone Tono Montero MD Primary Care Provider [phone] Encounter Details Date Type Department Care Team (Latest Contact Info) Description 11/12/2022 10:28 AM EDT - 11/12/2022 10:42 AM EDT Hospital Encounter XRay at [address] [place] [address] Mono Chavarria MD S/P AVR Discharge Disposition: Home Social History Tobacco Use [...] Sig Dispensed Refills Start Date End Date atorvastatin (Lipitor) 40 mg tablet Take 1 [...] (E.C.) Take 81 mg by mouth daily. apixaban (Eliquis) 5 mg tabletIndications:preve nt thromboembolism in chronic atrial fibrillation Take 1 tablet by mouth 2 times daily for 360 days. Indications: treatment to prevent blood clots in chronic atrial fibrillation 180 tablet 3 10/14/2022 10/06/2023 torsemide (Demadex) 20 mg tablet Take 1 tablet by mouth daily. 90 tablet 09/27/2022 03/04/2023 spironolactone (Aldactone) 25 mg tablet Take 1 tablet by mouth daily. 90 tablet 3 09/28/2022 09/16/2023 albuterol (PROVENTIL HFA;VENTOLIN HFA;PROAIR) 90 mcg/actuation HFA Aerosol Inhaler Inhale 2 puffs into the lungs every 4 hours as needed for Wheezing. Use with spacer 03/04/2023 documented as of this encounter Plan of Treatment Not on file documented as of this encounter Procedures Procedure Name Priority Date/Time Associated Diagnosis Comments XR CHEST PA AND LATERAL Routine 11/12/2022 10:41 AM EDT S/P AVR documented in this encounter Results * XR Chest PA [...] who have questions please contact the health cardiac care nurse that requested your imaging first. ? Electronically signed by: Christiano Gore MD, [facility] ??([phone]), at 11/12/2022 12:08 PM Narrative 11/12/2022 12:08 [...] patients who have questions please contactthe health cardiac care nurse that requested your imaging first. Electronically signed by: Christiano Gore MD, [facility]([phone]), at 11/12/2022 12:08 PM Mono Chavarria MD IMG DX ORDERABLES documented in this encounter Visit Diagnoses Diagnosis S/P AVR Heart valve replaced by other means documented in this encounter Care Teams Converting Supervisor Relationship Specialty Start Date End Date Tono Montero MD PCP - General Family Medicine 09/02/22 documented as of this encounter
--- OUTSIDE RECORDS SUMMARY | 2024-02-25 10:37 | XMS_ITS | Encounter Summary ---
[place] [address] Care Team Providers Care Die Repair Machinist Name Role Phone Tono Montero MD Primary Care Provider [phone] Encounter Details Date Type Department Care Team (Late st Contact Info) Description 10/22/2022 External Results [facility] [place] [address] Nicki Clay Social History Tobacco Use Types [...] Diagnosis Comments EXTERNAL INR RESULTS PANEL Routine 10/22/2022 1:02 PM EDT documented in this encounter Results * (ABNORMAL) External INR Results Panel (10/22/2022 1:02 PM EDT) INR, POC 1.3(A) 0.9 - 1.1 EXTERNAL FACILITY Comment:[facility] Blood 10/22/2022 1:02 PM EDT Historical Provider [facility] documented in this encounter Visit Diagnoses Not on filedocumented in this encounter Care Teams Die Repair Machinist Relationship Specialty Start Date End Date Tono Montero MD PCP - General Family Medicine 09/02/22 documented as of this encounter
--- OUTSIDE RECORDS SUMMARY | 2024-02-25 10:37 | XMS_ITS | Encounter Summary ---
Author Organization [facility] Address [facility] [place] [address] Care Team Providers Care Recreational Specialist Name Role Phone Tono Montero MD Primary Care Provider [phone] Encounter Details Date Type Department Care Team (Latest Contact Info) Description 10/10/2022 Travel Social History Tobacco Use Types Packs/Day [...] on filedocumented in this encounter Care Teams Recreational Specialist Relationship Specialty Start Date End Date Tono Montero MD PCP - General Family Medicine 09/02/22 documented as of this encounter
--- OUTSIDE RECORDS SUMMARY | 2024-02-25 10:37 | XMS_ITS | Encounter Summary ---
Author Organization [facility] Address [facility] [place] [address] Care Team Providers Care Agricultural Commodities Grader Name Role Phone Tono Montero MD Primary Care Provider [phone] Encounter Details Date Type Department Care Team (Late st Contact Info) Description 10/14/2022 Orders Only Cardiology at [address] [address] Prabhjot Schuster MD [facility] [place] [address] Social History Tobacco Use Types Packs/Day Years [...] on filedocumented in this encounter Care Teams Agricultural Commodities Grader Relationship Specialty Start Date End Date Tono Montero MD PCP - General Family Medicine 09/02/22 documented as of this encounter
--- OUTSIDE RECORDS SUMMARY | 2024-02-25 10:37 | XMS_ITS | Encounter Summary ---
[place] [address] Care Team Providers Care Resin Mixer Name Role Phone Tono Montero MD Primary Care Provider [phone] Encounter Details Date Type Department Care Team (Late st Contact Info) Description 09/29/2022 External Results [facility] [place] [address] Nicki Clay Social History Tobacco Use Types [...] Diagnosis Comments EXTERNAL INR RESULTS PANEL Routine 09/29/2022 2:54 PM EDT documented in this encounter Results * (ABNORMAL) External INR Results Panel (09/29/2022 2:54 PM EDT) INR, POC 1.6(A) 0.9 - 1.1 EXTERNAL FACILITY Comment:[facility] 09/29/2022 2:54 PM EDT Historical Provider [facility] documented in this encounter Visit Diagnoses Not on filedocumented in this encounter Care Teams Resin Mixer Relationship Specialty Start Date End Date Tono Montero MD PCP - General Family Medicine 09/02/22 documented as of this encounter
--- OUTSIDE RECORDS SUMMARY | 2024-02-25 10:37 | XMS_ITS | Encounter Summary ---
Author Organization [facility] Address [facility] [place] [address] Care Team Providers Care Instructional Design Consultant Name Role Phone Tono Montero MD Primary Care Provider [phone] Reason for Visit * Reason Comments Medication Refill Encounter Details Date Type Department Care Team (Late st Contact Info) Description 12/22/2022 Refill [place] [address] Trino Calix, [facility] [place] [address] Social History Tobacco Use Types Packs/Day Years Used Date Smoking Tobacco: Former Cigarettes 1 45 0 08/23/1977 - 08/23/2022 e-Cigarettes Smokeless Tobacco: Never Alcohol Use Standard Drinks/Week Comments Yes 0 (1 standard drink = 0.6 oz pur e alcohol) No ETOH since 08.09.22 [facility] Inpatient Questions Answer Date Recorded Does Anyone [...] on filedocumented in this encounter Care Teams Instructional Design Consultant Relationship Specialty Start Date End Date Tono Montero MD PCP - General Family Medicine 09/02/22 documented as of this encounter
--- OUTSIDE RECORDS SUMMARY | 2024-02-25 10:37 | XMS_ITS | Encounter Summary ---
Author Organization [facility] Address [facility] [place] [address] Care Team Providers Care Train Controller Name Role Phone Tono Montero MD Primary Care Provider [phone] Encounter Details Date Type Department Care Team (Latest Contact Info) Description 11/11/2022 Travel Social History Tobacco Use Types Packs/Day [...] on filedocumented in this encounter Care Teams Train Controller Relationship Specialty Start Date End Date Tono Montero MD PCP - General Family Medicine 09/02/22 documented as of this encounter
--- OUTSIDE RECORDS SUMMARY | 2024-02-25 10:37 | XMS_ITS | Encounter Summary ---
Author [place] [address] Care Team Providers Care Microfabrication Engineer Manager Name Role Phone Tono Montero MD Primary Care Provider [phone] Encounter Details Date Type Department Care Team (Late st Contact Info) Description 10/02/2022 [place] [address] Isaura Boogie Social History Tobacco Use Types Packs/Day Years Used Date Smoking Tobacco: Former Cigarettes 1 45 0 08/23/1977 - 08/23/2022 e-Cigarettes Smokeless Tobacco: Never Alcohol Use Standard Drinks/Week Comments Yes 0 (1 standard drink = 0.6 oz pur e alcohol) No ETOH since 4.1. [facility] Inpatient Questions Answer Date Recorded Does [...] Diagnosis Comments EXTERNAL INR RESULTS PANEL Routine 10/02/2022 3:12 PM EDT documented in this encounter Results * (ABNORMAL) External INR Results Panel (10/02/2022 3:12 PM EDT) INR, POC 1.6(A) 0.9 - 1.1 VISITING NURSE Comment:[facility] Blood 10/02/2022 3:12 PM EDT Historical Provider EXTERNAL [facility]IS[facility]UR[facility] documented in this encounter Visit Diagnoses Not on filedocumented in this encounter Care Teams Microfabrication Engineer Manager Relationship Specialty Start Date End Date Tono Montero MD PCP - General Family Medicine 09/02/22 documented as of this encounter
--- OUTSIDE RECORDS SUMMARY | 2024-02-25 10:37 | XMS_ITS | Encounter Summary ---
Author Organization [facility] Address [facility] [place] [address] Care Team Providers Care Telegraph Operator Name Role Phone Tono Montero MD Primary Care Provider [phone] Encounter Details Date Type Department Care Team (Late st Contact Info) Description 10/12/2022 Telephone Cardiology at [address] [address] Trino Strong PA [facility] [place] [address] Social History Tobacco Use Types Packs/Day Years [...] encounter Miscellaneous Notes * Telephone Encounter - Trino Strong PA - 10/12/2022 10:31 AM EDT Cardiology weekend coverage telephone note: His forced him to call to review home BP monitor results. This morning BP 127/96, hr 45. BP 111/88, hr 29 BP 123/89, HR 41 Last night HR 91 bpm He feels well without complaints. He believes his home monitor is not working well. Recent cardiology office visit 10/10 with Reynaldo Wade and Prabhjot Schuster when stopped amiodarone for postop atrial fibrillation which persisted with reported HR 47 in the office. He has cardiac rehab tomorrow and will further assess heart rate. I reassured him as he feels well and recent medication adjustments reviewed. documented in this encounter Plan of Treatment Not on file documented as of this encounter Visit Diagnoses Not on filedocumented in this encounter Care Teams Telegraph Operator Relationship Specialty Start Date End Date Tono Montero MD PCP - General Family Medicine 09/02/22 documented as of this encounter
--- OUTSIDE RECORDS SUMMARY | 2024-02-25 10:37 | XMS_ITS | Encounter Summary ---
[place] [address] Care Team Providers Care Steam Fitter Helper Name Role Phone Tono Montero MD Primary Care Provider [phone] Encounter Details Date Type Department Care Team (Latest Contact Info) Description 10/20/2022 3:00 AM EDT Anti-Coag Telephone Visit [facility] [place] [address] John Torres, [facility] S/P AVR; Atrial fibrillation, new onset [...] as of this encounter Progress Notes * John Torres, [facility] - 10/20/2022 3:00 AM EDT Images from the original note were not included. Anticoagulation Therapy Note Anticoagulation Summary As of 10/20/2022 INR goal: 2.0-3.0 TTR: 100.0 % (2 d) INR used for dosin.4 (10/20/2022) Warfarin maintenance plan: 7.5 mg (5 mg x 1.5) every Thu; 5 mg (5 mg x 1) all other days; Starting 10/20/2022 Weekly warfarin total: 37.5 mg Plan last modified: Eula Salmon [facility] (10/07/2022) Next INR check: 10/22/2022 Target end date: 10/19/2022 Indications S/P AVR [Z95.2] Atrial fibrillation new onset [I48.91] Anticoagulation Episode Summary INR check location: [facility] Preferred lab: Send INR reminders to: [facility] Comments: Patient Prefers [facility] Anticoagulation Care Providers Provider Role Specialty Phone number Mono Chavarria MD Referring Cardiothoracic Surgery [phone] Min, Prabhjot Garces MD Responsible Cardiology [phone] Patient Assessment Service Type: Anticoag Transition Clinical Outcomes Patient Findings Positives: Missed doses (hold x 2 then test), Change in medications (Eliquis) Comments: Plan to transition to Eliquis Warfarin Therapy Instructions October 2022 Details Sun Thu Sat 1 2 3 4 5 6 7 8 9 10 11 12 Hold See details 13 Hold 14 7.5 mg 15 16 17 18 19 20 21 22 23 24 25 26 27 28 29 30 Date Details 10/20 This INR check Date of next INR: 10/22/2022 How to take your warfarin dose To take: 7.5 mg Take 1.5 of the 5 mg tablets. Hold Do not take your warfarin dose. See the Details table to the right for additional instructions. Description 10/20: Received report patient received Eliquis. advised take Thursday, Hold Thursday & test Thursday. I changed that plan to no warfarin today or tomorrow and will test INR Thursday to assess ability to transition to Eliquis at that point. 10/14: Confirmed via In Basket messaging with Dr Schuster, Conner will be switching to Eliquis. Order was sent to mail order. Dr Schuster wanted to stress amiodarone has been discontinued and requested we advise patient on how to transition from warfarin to Eliquis. 10/10: Seen by cardiology. Still in A Fib. Amiodarone discontinued, discussing potential change to DOAC (Eliquis) - continue warfarin for now. 10/09 INR in range. Two days ago Conner was given a 12% reduction to a weekly dose of 37.5mg. Last 7 day total to today is 45mg. Continue with assigned plan and retest Thursday. Sent standing order to [facility] discharges him 10/07/22: INR in range after receiving 42.5mg [...] INR Thursday, will fax orders as well. documented in this encounter Plan of Treatment Not on file documented as of this encounter Visit Diagnoses Diagnosis S/P AVR Heart valve replaced by other means Atrial fibrillation, new onset Atrial fibrillation documented in this encounter Care Teams Steam Fitter Helper Relationship Specialty Start Date End Date Tono Montero MD PCP - General Family Medicine 09/02/22 documented as of this encounter
--- OUTSIDE RECORDS SUMMARY | 2024-02-25 10:37 | XMS_ITS | Encounter Summary ---
Author Organization [facility] Address [facility] [place] [address] Care Team Providers Care Stripe Marker Name Role Phone Tono Montero MD Primary Care Provider [phone] Reason for Referral * Diagnostic Test (Routine) - Closed Specialty Diagnoses / Procedures Referred By Contac t Referred To Contact Cardiology Diagnoses Atrial fibrillation, new onset Procedures Echocardiogram Transthoracic Yomi Butcher MD [facility] DR [place] [address] [facility] [place] [address] Referral ID Status Reason Start Date Expiration Date V isits Requested Visits Authorized [id number] Closed Specialty Service Requested 10/10/2022 10/10/2023 1 1 Reason for Visit * Diagnostic Test (Routine) - Closed Specialty Diagnoses / Procedures Referred By Contac t Referred To Contact Cardiology Diagnoses Atrial fibrillation, new onset Procedures Echocardiogram Transthoracic Yomi Butcher MD [facility] DR [place] [address] [facility] [place] [address] Referral ID Status Reason Start Date Expiration Date V isits Requested Visits Authorized [id number] Closed Specialty Service Requested 10/10/2022 10/10/2023 1 1 Encounter Details Date Type Department Care Team (Latest Contact Info) Description 11/12/2022 10:43 AM EDT - 11/12/2022 11:59 PM EDT Hospital Encounter Non-Invasive Cardiology Lab [facility] [address] Gian Schuster MD [facility] [place] [address] Atrial fibrillation, new onset Discharge Disposition: Home Social History Tobacco Use [...] Date/Time Associated Diagnosis Comments ECHO COMPLETE Routine 11/12/2022 1:22 PM EDT Atrial fibrillation, new onset documented in this encounter Results * ECHO COMPLETE (11/12/2022 1:22 PM EDT) Anatomical Region Laterality Modality Cardiac Other 11/12/2022 11:5 4 AM EDT Narrative 11/12/2022 1:54 PM EDT ? Echocardiogram Report Name: CONNER DONNELLY ?Study Date: 11/12/2022 11:54 AMBP: 114/81 mmHg ? Patient Location: : 1960 ? Height: 170 cm ? Account: [id number] Age: 62 yrs ? Weight: 94 kg Gender: Male ?BSA: 2.1 m2 Ordering Physician: GIAN SCHUSTER Referring Physician: YOMI BUTCHER Performed By: GIANCARLO Steele RCS Reason For Study: New on set A. Fib, S/P ascending aorta and root replacement, CABG Exam Location: [facility]. Interpretation Summary The patient is s/p AVR [...] a change in regional wall motion. Procedure Complete-[id number]. Satisfactory quality. Irregular rhythm. Left Ventricle Severely [...] Guillory MD - 11/12/2022 Echocardiogram Report Name: YULIANA CONNER Regino Study Date: 1:54 AMBP: 114/81 mmHg Patient Location: : 1960 Height: 170 cm Account: [id number] Age: 62 yrs Weight: 94 kg Gender: Male BSA: 2.1 m2 Ordering Physician: GIAN SCHUSTER Referring Physician: YOMI BUTCHER Performed By: Freddie Palencia, GIANCARLO, GLORIA Reason For Study: New on set A. Fib, S/P ascending aorta and rootreplacement, CABG Exam Location: [facility]. Interpretation Summary The patient is s/p AVR [...] a change in regional wall motion. Procedure Complete-[id number]. Satisfactory quality. Irregular rhythm. Left Ventricle Severely [...] fibrillation documented in this encounter Care Teams Stripe Marker Relationship Specialty Start Date End Date Tono Montero MD PCP - General Family Medicine 09/02/22 documented as of this encounter
--- OUTSIDE RECORDS SUMMARY | 2024-02-25 10:37 | XMS_ITS | Encounter Summary ---
Author Organization [facility] Address [facility] [place] [address] Care Team Providers Care Assembler Camper Name Role Phone Tono Montero MD Primary Care Provider [phone] Encounter Details Date Type Department Care Team (Latest Contact Info) Description 03/04/2023 Travel Social History Tobacco Use Types Packs/Day [...] on filedocumented in this encounter Care Teams Assembler Camper Relationship Specialty Start Date End Date Tono Montero MD PCP - General Family Medicine 09/02/22 documented as of this encounter
--- OUTSIDE RECORDS SUMMARY | 2024-02-25 10:37 | XMS_ITS | Encounter Summary ---
Author Organization [facility] Address [facility] [place] [address] Care Team Providers Care Decision Analyst Name Role Phone Tono Montero MD Primary Care Provider [phone] Encounter Details Date Type Department Care Team (Late st Contact Info) Description 12/29/2022 Orders Only Cardiology at [address] [address] Prabhjot Schuster MD [facility] [place] [address] Social History Tobacco Use Types Packs/Day Years [...] on filedocumented in this encounter Care Teams Decision Analyst Relationship Specialty Start Date End Date Tono Montero MD PCP - General Family Medicine 09/02/22 documented as of this encounter
--- OUTSIDE RECORDS SUMMARY | 2024-02-25 10:37 | XMS_ITS | Encounter Summary ---
[place] [address] Care Team Providers Care Welder/Installer Name Role Phone Tono Montero MD Primary Care Provider Encounter Details Date Type Department Care Team (Late st Contact Info) Description 10/14/2022 Orders Only [facility] Centralized [place] [address] Isaura Boogie S/P AVR; Atrial fibrillation, new onset Social [...] fibrillation documented in this encounter Care Teams Welder/Installer Relationship Specialty Start Date End Date Tono Montero MD PCP - General Family Medicine 09/02/22 documented as of this encounter
--- OUTSIDE RECORDS SUMMARY | 2024-02-25 10:37 | XMS_ITS | Encounter Summary ---
Author Organization [facility] Address [facility] [place] [address] Care Team Providers Care Front Office Assistant Name Role Phone Tono Montero MD Primary Care Provider [phone] Encounter Details Date Type Department Care Team (Late st Contact Info) Description 09/29/2022 Telephone [place] [address] Isaura Ruby PA [facility] [place] [address] Social History Tobacco Use Types Packs/Day Years [...] encounter Miscellaneous Notes * Telephone Encounter - Isaura Ruby PA - 09/29/2022 4:00 PM EDT [facility] contacted office with updates on the patient s/p root replacement/CABG 09/18. Rhythm remains irregular (postop AF which was present on discharge), however HR is in the 40s and his SBP 90s. He is asymptomatic from this. Instructed to cut back metoprolol to 12.5 BID for now and requested Conner to invest in a BP cuff to keep track of his HR/BP if possible. Continue amio for now. [facility] to revisit on . Isaura Ruby PA-C 09/29/22 documented in this encounter Plan of Treatment Not on file documented as of this encounter Visit Diagnoses Not on filedocumented in this encounter Care Teams Front Office Assistant Relationship Specialty Start Date End Date Tono Montero MD PCP - General Family Medicine 09/02/22 documented as of this encounter
--- OUTSIDE RECORDS SUMMARY | 2024-02-25 10:37 | XMS_ITS | Encounter Summary ---
[place] [address] Care Team Providers Care Navy Material Inspector Name Role Phone Tono Montero MD Primary Care Provider [phone] Encounter Details Date Type Department Care Team (Late st Contact Info) Description 10/09/2022 [place] [address] Isaura Boogie Social History Tobacco Use Types [...] Diagnosis Comments EXTERNAL INR RESULTS PANEL Routine 10/09/2022 12:58 PM EDT documented in this encounter Results * External INR Results Panel (10/09/2022 12:58 PM EDT) INR, POC 2.4 0.9 - 1.1 VISITING NURSE Comment:[facility] Blood 10/09/2022 12:5 8 PM EDT Historical Provider EXTERNAL LAB [facility] VISITING NURSE documented in this encounter Visit Diagnoses Not on filedocumented in this encounter Care Teams Navy Material Inspector Relationship Specialty Start Date End Date Tono Montero MD PCP - General Family Medicine 09/02/22 documented as of this encounter
--- OUTSIDE RECORDS SUMMARY | 2024-02-25 10:37 | XMS_ITS | Encounter Summary ---
[place] [address] Care Team Providers Care Manager Language Name Role Phone Tono Montero MD Primary Care Provider [phone] Encounter Details Date Type Department Care Team (Latest Contact Info) Description 10/22/2022 5:00 AM EDT Anti-Coag Telephone Visit [facility] Centralized [place] [id number] John Torres, [facility] S/P AVR; Atrial fibrillation, new onset [...] Progress Notes * John Torres, [facility] - 10/22/2022 5:00 AM EDT Images from the original note were not included. Anticoagulation Therapy Note Anticoagulation Summary As of 10/22/2022 INR goal: 2.0-3.0 TTR: 70.5 % (4 d) INR used for dosin.3 (10/22/2022) Warfarin maintenance plan: 7.5 mg (5 mg x 1.5) every Wed; 5 mg (5 mg x 1) all other days; Starting 10/22/2022 Weekly warfarin total: 37.5 mg Plan last modified: Eula Salmon [facility] (10/07/2022) Next INR check: Target end date: 10/19/2022 Indications S/P AVR [Z95.2] Atrial fibrillation new onset [I48.91] Anticoagulation Episode Summary INR check location: [facility] Preferred lab: Resolved date: 10/22/2022 Resolved reason: Alternate Therapy Initiated Send INR reminders to: [facility] Comments: Patient Prefers Cell [facility] Anticoagulation Care Providers Provider Role Specialty Phone number Mono Chavarria MD Referring Cardiothoracic Surgery [phone] Prabhjot Schuster MD Responsible Cardiology [phone] Patient Assessment Service Type: Anticoag Transition Patient Findings Positives: Change in medications (Eliquis) Warfarin Therapy Instructions October 2022 Details Sun Thu Sat 1 2 3 4 5 6 7 8 9 10 11 12 13 14 15 16 17 18 19 20 21 22 23 24 25 26 27 28 29 30 Date Details 10/22 This INR check Therapy discontinued on 10/22/2022 Description 10/22: INR is low enough to start Eliquis. Conner all set for transition, starting Eliquis tonight. Prothrombin time order & warfarin refills cancelled, episode resolved. 10/20: Received report patient received Eliquis. advised take Thursday, Hold Thursday & test Thursday. I changed that plan to no warfarin today or tomorrow and will test INR Thursday to assess ability to transition to Eliquis at that point. 10/14: Confirmed via In Basket messaging with Dr Schuster Conner will be switching to Eliquis. Order [...] and retest Thursday. Sent standing order to [facility] discharges him 10/07/22: INR in [...] fibrillation documented in this encounter Care Teams Manager Language Relationship Specialty Start Date End Date Tono Montero MD PCP - General Family Medicine 09/02/22 documented as of this encounter
--- OUTSIDE RECORDS SUMMARY | 2024-02-25 10:37 | XMS_ITS | Encounter Summary ---
[place] [address] Care Team Providers Care Sap Security Architect Name Role Phone Tono Montero MD Primary Care Provider [phone] Encounter Details Date Type Department Care Team (Late st Contact Info) Description 10/20/2022 [place] [address] Isaura Boogie Social History Tobacco Use Types [...] Diagnosis Comments EXTERNAL INR RESULTS PANEL Routine 10/20/2022 10:30 AM EDT documented in this encounter Results * External INR Results Panel (10/20/2022 10:30 AM EDT) INR, POC 2.4 0.9 - 1.1 EXTERNAL FACILITY Comment:PCP OFFICE POC Blood 10/20/2022 10:3 0 AM EDT Historical Provider [facility]TERNAL LAB [facility] documented in this encounter Visit Diagnoses Not on filedocumented in this encounter Care Teams Sap Security Architect Relationship Specialty Start Date End Date Tono Montero MD PCP - General Family Medicine 09/02/22 documented as of this encounter
--- OUTSIDE RECORDS SUMMARY | 2024-02-25 10:37 | XMS_ITS | Encounter Summary ---
[place] [address] Care Team Providers Care Nylon Operator Name Role Phone Tono Montero MD Primary Care Provider [phone] Encounter Details Date Type Department Care Team (Latest Contact Info) Description 10/09/2022 2:00 AM EDT Anti-Coag Telephone Visit [facility] [place] [id number] Thiago Mohamud, [facility] S/P AVR; Atrial fibrillation, new onset [...] as of this encounter Progress Notes * Thiago Mohamud, [facility] - 10/09/2022 2:00 AM EDT Images from the original note were not included. Anticoagulation Therapy Note Anticoagulation Summary As of 10/09/2022 INR goal: 2.0-3.0 TTR: -- INR used for dosin.4 (10/09/2022) Warfarin maintenance plan: 7.5 mg (5 mg x 1.5) every Wed; 5 mg (5 mg x 1) all other days; Starting 10/09/2022 Weekly warfarin total: 37.5 mg Plan last modified: Eula Salmon [facility] (10/07/2022) Next INR check: 10/13/2022 Target end date: 10/19/2022 Indications S/P AVR [Z95.2] Atrial fibrillation new onset [I48.91] Anticoagulation Episode Summary INR check location: [facility] Preferred lab: Send INR reminders to: [facility] Comments: Patient Prefers Cell [facility] Anticoagulation Care Providers Provider Role Specialty Phone number Mono Chavarria MD Referring Cardiothoracic Surgery [phone] Min, Prabhjot Garces MD Responsible Cardiology [phone] Patient Assessment Service Type: INR Test Result [...] admission, Bruising, Other complaints Warfarin Therapy Instructions October 2022 Details Sun Mon Thu Chelo Fri Sat 1 5 mg See details 2 5 mg 3 5 mg 4 5 mg 5 5 mg 6 7 8 9 10 11 12 13 14 15 16 17 18 19 20 21 22 23 24 25 26 27 28 29 30 Date Details 10/09 This INR check Date of next INR: 10/13/2022 How to take your warfarin dose To take: 5 mg Take 1 of the 5 mg tablets. Description 10/10: Seen by cardiology. Still in A Fib. Amiodarone discontinued, discussing potential change to DOAC (Eliquis) - continue warfarin for now. 10/09 INR in range. Two days ago Conner was given a 12% reduction to a weekly dose of 37.5mg. Last 7 day total to today is 45mg. Continue with assigned plan and retest Thursday. Sent standing order to [facility] discharges him 10/07/22: INR in range after [...] fibrillation documented in this encounter Care Teams Nylon Operator Relationship Specialty Start Date End Date Tono Montero MD PCP - General Family Medicine 09/02/22 documented as of this encounter
--- OUTSIDE RECORDS SUMMARY | 2024-02-25 10:37 | XMS_ITS | Encounter Summary ---
[place] [address] Care Team Providers Care Transaction Manager Name Role Phone Tono Montero MD Primary Care Provider Encounter Details Date Type Department Care Team (Latest Contact Info) Description 10/13/2022 2:00 AM EDT Anti-Coag Telephone Visit [facility] [place] [id number] John Torres, [facility] S/P AVR; Atrial fibrillation, new [...] this encounter Progress Notes * John Torres, [facility] - 10/13/2022 2:00 AM EDT Images from the original note were not included. Anticoagulation Therapy Note Anticoagulation Summary As of 10/13/2022 INR goal: 2.0-3.0 TTR: -- INR used for dosing: No new INR was available at the time of this encounter. Warfarin maintenance plan: 7.5 mg (5 mg x 1.5) every Wed; 5 mg (5 mg x 1) all other days; Starting 10/13/2022 Weekly warfarin total: 37.5 mg Plan last modified: Eula Salmon [facility] (10/07/2022) Next INR check: 10/13/2022 Target end date: 10/19/2022 Indications S/P AVR [Z95.2] Atrial fibrillation new onset [I48.91] Anticoagulation Episode Summary INR check location: [facility] Preferred lab: Send INR reminders to: [facility] Comments: Patient Prefers Cell [facility] Anticoagulation Care Providers Provider Role Specialty Phone number Mono Chavarria MD Referring Cardiothoracic Surgery [phone] Prabhjot Schuster MD Responsible Cardiology [phone] Patient Assessment Service Type: Overdue Callback Warfarin Therapy Instructions October 2022 Details Sun Mon Thu Chelo Fri Sat 1 2 3 4 5 5 mg See details 6 7 8 9 10 11 12 13 14 15 16 17 18 19 20 21 22 23 24 25 26 27 28 29 30 Date Details 10/13 This INR check Date of next INR: 10/13/2022 How to take your warfarin dose To take: 5 mg Take 1 of the 5 mg tablets. Description 10/14: Confirmed via In Basket messaging with [...] and retest Thursday. Sent standing order to [facility] discharges him 10/07/22: INR in [...] fibrillation documented in this encounter Care Teams Transaction Manager Relationship Specialty Start Date End Date Tono Montero MD PCP - General Family Medicine 09/02/22 documented as of this encounter
--- OUTSIDE RECORDS SUMMARY | 2024-02-25 10:38 | XMS_ITS | Encounter Summary ---
[place] [address] Care Team Providers Care Freight Service Inspector Name Role Phone Ulises Singh MD Primary Care Provider [phone] Reason for Referral * Consultation (Routine) - Closed Specialty Diagnoses / Procedures Referred By Contac t Referred To Contact Diagnoses S/P Trino Mayes PA [facility] [place] [address] [place] [address] Referral ID Status Reason Start Date Expiration Date V isits Requested Visits Authorized [id number] Closed Assume Subset of Care 09/27/2022 09/27/2023 1 1 * Home Health Care (Routine) - Closed Specialty Diagnoses / Procedures Referred By Contbernadette carr Referred To Contact Diagnoses S/P Mono Ramirez MD [facility] CARDI[facility]IC SURGERY [address] [facility] & [address] [place] [address] Referral ID Status Reason Start Date Expiration Date V isits Requested Visits Authorized [id number] Closed Consult, Test & Treat 09/27/2022 03/26/2023 999 999 * Consultation (Routine) - Closed Specialty Diagnoses / Procedures Referred By Mounika carr Referred To Contact Diagnoses S/P AVR Mono Purvis MD [facility] [place] [address] Cardiac Rehab, [facility] [address] [place] [address] Referral ID Status Reason Start Date Expiration Date V isits Requested Visits Authorized [id number] Closed Consult, Test & Treat 09/27/2022 03/26/2023 36 36 Reason for Visit * Auth/Cert (Routine) Specialty Diagnoses / Procedures Referred By Mounika carr Referred To Contact Diagnoses Ascending aortic aneurysm Nonrheumatic aortic (valve) stenosis Coronary artery disease ascending aortic root aneurysm, CAD Procedures PRO ASCEND AORTA GRFT W ROOT REPLACMT PRO CABG, VEIN, SINGLE PRO ENDOSCOPY W/VIDEO-ASST VEIN HARVEST, CABG @ASCEND AORTA GRAFT, W\CPB, W\WO VALVE SUSPEN; W\ AORTIC ROOT REPLCMNT (WRVU 58.79) @CABG, VEIN ONLY; SINGLE CORONARY VENOUS GRAFT (WRVU 34.98) ENDOSCOPIC HARVEST VEIN(S) FOR CABG (WRVU 0.31) Mono Purvis MD [facility] Referral ID Status Reason Start Date Expiration Date Visits Re quested Visits Authorized [id number] 1 1 Encounter Details Date Type Department Care Team (Latest Contact Info) Description 09/18/2022 9:39 AM EDT - 09/27/2022 1:29 PM EDT Hospital Encounter Heart and Vascular Unit Level 4 [place] [address] Mono Purvis MD Aortic valve stenosis, etiology of cardiac valve disease unspecified; S/P AVR; Coronary artery disease, unspecified vessel or lesion type, unspecified whether angina present, unspecified whether [place] or transplanted heart Discharge Disposition: Home with VNA Social History Tobacco Use Types Packs/Day Years [...] Sign Reading Time Taken Comments Blood Pressure 134/104 09/27/2022 9:00 AM EDT Pulse 85 09/27/2022 9:00 AM EDT Temperature 37.1 ??C (98.7 ??F) 09/27/2022 9:00 AM ED T Respiratory Rate 19 09/27/2022 9:00 AM EDT Oxygen Saturation 94% 09/27/2022 9:00 AM EDT Inhaled Oxygen Concentration - - Weight 95.6 kg (210 lb 12.8 oz) 09/27/2022 5:13 AM EDT Height 170.2 cm (5' 7) 09/18/2022 10:3 0 AM EDT Body Mass Index 33.02 09/18/2022 10:30 AM EDT documented in this encounter Discharge Summaries * Trino Calix PA - 09/27/2022 9:54 AM EDT Inpatient - Discharge Summary Patient Name: Addis Bridges Patient Age: 62 y.o. Birthdate: 1960 Language: Portuguese Race: White Ethnicity: Not nor Admit Date: 09/18/2022 Discharge Date: 09/27/22 Attending Physician: Mono Purvis MD Follow-up Recommendations for Providers: ??? Please continue routine management of cardiovascular risk factors including blood pressure, lipids, glucose, etc. ??? Please note any changes to medications. ??? Patient to follow up with PCP, Ulises Singh MD, in 1-2 weeks. ??? Patient to follow up with Cardiac Surgeon, Dr. Mono Purvis, in 1 month with a chest x-ray, EKG, and Echo. ??? Referral placed to Anticoagulation Clinic under the management of cardiology Dr Aquino (Please see below for details) Inpatient Provider Contact Information: [facility] Section of Cardiac Surgery [facility] [place] [address] FAX [phone] Discharge Diagnoses (Hospital Problems) Primary Diagnoses: , Aortic Root Aneurysm, CAD Secondary Diagnoses: Active Hospital Problems Diagnosis ??? CAD (coronary artery disease) Resolved Hospital Problems No resolved problems to display. Other Diagnoses (Chronic Problems): Active Non-Hospital Problems Diagnosis ??? S/P AVR ??? Aortic stenosis ??? Sleep apnea ??? Pleuritic chest pain ??? HTN (hypertension) Discharged to: Patient discharged to home Functional and Cognitive Status: stable Discharge Conditions/Prognosis: stable Past Medical History: Diagnosis Date ??? Aortic aneurysm ??? Congenital heart defect ??? Coronary artery disease ??? CPAP (continuous positive airway pressure) dependence ??? Heart valve disease ??? High blood pressure ??? HTN (hypertension) ??? Hyperlipidemia ??? Obstructive sleep apnea ??? Pleuritic chest pain ??? Sleep apnea questionable, sleep center scheduled for 07/09/15 Past Surgical History: Procedure Laterality Date ??? PRO ASCEND AORTA GRFT W ROOT REPLACMT N/A 09/18/2022 @ASCEND AORTA GRAFT, W\CPB, W\WO VALVE SUSPEN; W\ AORTIC ROOT REPLCMNT (WRVU 58.79) performed by Mono Purvis MD at [facility] MAIN OR ??? PRO CABG, VEIN, SINGLE N/A 09/18/2022 @CABG, VEIN ONLY; SINGLE CORONARY VENOUS GRAFT (WRVU 34.98) performed by Mono Purvis MD at [facility] MAIN OR ??? PRO ENDOSCOPY W/VIDEO-ASST VEIN HARVEST, CABG Right 09/18/2022 ENDOSCOPIC HARVEST VEIN(S) FOR CABG (WRVU 0.31) performed by Mono Purvis MD at [facility] MAIN OR Prior To Admission Medications Medications Prior to Admission Medication Sig Dispense Refill Last Dose ??? buPROPion SR (Wellbutrin SR) 150 mg SR 12 hr tablet TAKE 1 TABLET BY MOUTH ONCE DAILY FOR 3 DAYS THEN INCREASE TO TAKE ONE TABLET TWICE DAILY. START ONE WEEK BEFORE YOU QUIT SMOKING. 09/18/2022 ??? psyllium seed (PSYLLIUM ORAL) Take by mouth 4 times daily. 09/17/2022 ??? furosemide (Lasix) 20 mg tablet Take 1 tablet by mouth daily. 60 tablet 0 09/17/2022 ??? metoprolol succinate XL (Toprol-XL) 25 mg ER 24 hr tablet Take 1 tablet by mouth daily. 30 tablet 12 09/17/2022 ??? [DISCONTINUED] atorvastatin (Lipitor) 80 mg tablet Take 1 tablet by mouth every evening. 90 tablet 3 09/17/2022 ??? [DISCONTINUED] losartan (Cozaar) 100 mg tablet Take 1 tablet by mouth daily. 90 tablet 3 09/17/2022 ??? aspirin 81 mg Tablet, Delayed Release (E.C.) Take 81 mg by mouth daily. 09/18/2022 ??? albuterol (PROVENTIL HFA;VENTOLIN HFA;PROAIR) 90 mcg/actuation HFA Aerosol Inhaler Inhale 2 puffs into the lungs every 4 hours as needed for Wheezing. Use with spacer 09/18/2022 ??? chlorhexidine (HIBICLENS) 4 % Liquid Apply topically daily as needed. Shower from head to toe with Chlorhexidine the night before surgery . 120 mL 0 ??? diclofenac (CATAFLAM) 50 mg tablet 50MG = 1 Tablet(s), PO, Three times daily Unknown Updated Allergies/ADRs: No Known Allergies History of Presentation: As per consult note by MONO PURVIS MD on 09/03/2022, He is a 62 y.o. year old PMH of JOSEPH on CPAP, HTN, , 5 previous hernia repairs, current tobacco use who recently presented to an OSH for worsening SOB/lightheadedness occurring at rest. TTE showed reduced EF of around 40-45% and mod-severe mean gradient 36, mod AI, aortic dilatation of 4.6cm. At the OSH his trops were slightly elevated. Also reporting diarrhea a few times a day. No h/o syncope. Hep gtt was started. He is already onasa/ statin. ?? 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 No h/o liver disease. Creatinine is 0.81. Being diuresed on IV lasix. Not on plavix. No stroke history. Not diabetic. Major Procedures/Operations: 09/18/2022: Aortic Root Replacement with bioprosthetic AVR, CABGx1 Hospital Course: , Aortic Root Aneurysm, CAD s/p AVR, Aortic Root Replacement, CABGx1 Addis Bridges was admitted to [facility] on 09/18/2022 via the Same Day Program. He was brought to the operating room where Dr. Mono Purvis performed an aortic root replacement and CABGx1. He tolerated the procedure and was brought to the Cardiovascular Intensive Care Unit for recovery. He initially required the pharmacologic support of intravenous levo. He was extubated from the ventilator on the day of surgery. All drips were weaned to off. Routine postoperative and home medications were started. Aspirin 81mgdaily was started. Statin therapy was continued. He was started on beta blockade and this was optimized. Diuretics were started and he responded appropriately. Pl Coumadin was started for post op afib. He was transferred to the Intermediate Cardiac Care Unit for continued rehabilitation. All tubes, lines, and epicardial pacing wires were removed without incident. He voided normally after his Delarosa was removed. Postop afib He developed atrial fibrillation post-operative and was loaded with amiodarone for rhythm control. He will continue on amiodarone for 1 month until follow up with cardiac surgery. His statin dose washalved given the interaction with amiodarone and increased risk of rhabdomyolysis. He was already on beta blockade as above. Coumadin was started as he had several episodes of atrial fibrillation. This will be continued at least until follow up and thereafter pending rhythm status. He was in rate controlled afib at the time of discharge. He was seen by Physical Therapy and Cardiac Rehabilitation. Sternal precaution education was provided. His discharge plan at this time is to home. The remainder of his hospital course was uneventful and by postoperative day #9 he had met all criteria for discharge. Pain was controlled on oral medications. He had walked 5 minutes and gone up and down stairs. He was tolerating a regular diet and had a bowel movement. Vital Signs at Discharge: Last set of vitals: BP (!) 134/104 (BP Location (NBP): Right arm, Patient Position: Sitting) Pulse 85 Temp 37.1 ??C (98.7 ??F) (Oral) Resp 19 Ht 170.2 cm (5' 7) Wt 95.6 kg (210 lb 12.8 oz) SpO2 94% BMI 33.02 kg/m?? Patient Vitals for the past 168 hrs: Weight 09/27/22 0513 95.6 kg (210 lb 12.8 oz) 09/26/22 0451 96.8 kg (213 lb 6.4 oz) 09/25/22 0431 98.3 kg (216 lb 11.4 oz) 09/24/22 0410 100.4 kg (221 lb 5.5 oz) 09/23/22 0535 103.4 kg (227 lb 15.3 oz) 09/22/22 0450 102.6 kg (226 lb 3.1 oz) 09/21/22 0401 102.2 kg (225 lb 5 oz) Current weight: 95.6 kg Admit/Preop weight: 100.2 kg Pertinent physical exam findings prior to discharge: General: laying in bed, appears comfortable Neuro: A&Ox4, no focal deficit. Moving all ext. Lungs: Nonlabored on RA, without wheeze or rales Heart: irregular, no murmur Abdomen: soft, nontender, +bowel sounds Ext: warmer, 1+ LE edema Incisions: incisions clean, dry, intact Important Studies and Lab Data: Lab Results Component Value Date WBC 14.0 (H) 09/21/2022 RBC 3.35 (L) 09/21/2022 HGB 10.3 (L) 09/21/2022 HCT 31.2 (L) 09/21/2022 PLATELET 141 (L) 09/21/2022 Recent Labs 09/27/22 0444 INR 1.7 Lab Results Component Value Date NA 136 09/21/2022 K 4.3 09/27/2022 CL 101 09/21/2022 CO2 25 09/21/2022 BUN 22 (H) 09/21/2022 CREATININE 0.75 (L) 09/21/2022 Pending Studies and Lab Data: none Immunizations Given this Hospitalization: There is no immunization history on file for this patient. Smoking Status at Discharge: Social History Tobacco Use Smoking Status Former ??? Packs/day: 1.00 ??? Years: 45.00 ??? Pack years: 45.00 ??? Types: Cigarettes, e-Cigarettes ??? Quit date: 08/23/2022 ??? Years since quittin.0 Smokeless Tobacco Never STS Data Medications: Pre-operative beta kadi? Given Discharge beta kadi? Given Discharge lipid therapy? Given Discharge anti-platelet therapy? Given Discharge MESFIN or ARB restarted? Unable to start due to blood pressue Discharge Medications: Your Medications New Medications Dose Details acetaminophen 500 mg tablet Commonly known as: Tylenol Take 2 tablets by mouth every 6 hours. 1,000 mg Refills: 0 AMIOdarone 200 mg tablet Commonly known as: Pacerone Take 1 tablet by mouth 2 times daily. 200 mg Quantity: 60 tablet Refills: 0 amoxicillin 500 mg capsule Commonly known as: Amoxil Take 4 capsules by mouth once as needed (Bacterial endocarditis prevention. take 30-60 min prior toprocedures including dental cleanings) for up to 1 dose. 2,000 mg Quantity: 4 capsule Refills: 3 metoproloL tartrate 25 mg tablet Commonly known as: Lopressor Take 1 tablet by mouth 2 times daily. 25 mg Quantity: 180 tablet Refills: 3 spironolactone 25 mg tablet Commonly known as: Aldactone Take 1 tablet by mouth daily. Start taking on: September 28, 2022 25 mg Quantity: 90 tablet Refills: 3 torsemide 20 mg tablet Commonly known as: Demadex Take 1 tablet by mouth daily. 20 mg Quantity: 90 tablet Refills: 0 warfarin 5 mg tablet Commonly known as: Coumadin Take 1 tablet by mouth daily. Further adjustments to coumadin dose by coumadin clinic based on INR. 5 mg Quantity: 90 tablet Refills: 0 Continued medications with new dosing Dose Details atorvastatin 40 mg tablet Commonly known as: Lipitor Take 1 tablet by mouth every evening. While taking amiodarone then increase back to 80mg daily What changed: ?? medication strength ?? how much to take ?? additional instructions 40 mg Quantity: 30 tablet Refills: 0 losartan 25 mg tablet Commonly known as: Cozaar Take 1 tablet by mouth daily. What changed: ?? medication strength ?? how much to take 25 mg Quantity: 90 tablet Refills: 0 Continued medications, unchanged Dose Details albuteroL 90 mcg/actuation HFA Aerosol Inhaler Inhale 2 puffs into the lungs every 4 hours as needed for Wheezing. Use with spacer 2 puff Refills: 0 aspirin EC 81 mg EC (DR) tablet Take 81 mg by mouth daily. 81 mg Refills: 0 buPROPion SR 150 mg SR 12 hr tablet Commonly known as: Wellbutrin SR TAKE 1 TABLET BY MOUTH ONCE DAILY FOR 3 DAYS THEN INCREASE TO TAKE ONE TABLET TWICE DAILY. START ONE WEEK BEFORE YOU QUIT SMOKING. Refills: 0 PSYLLIUM ORAL Take by mouth 4 times daily. Refills: 0 STOPPED Medications Cataflam 50 mg tablet Generic drug: diclofenac chlorhexidine 4 % Liquid Commonly known as: HIBICLENS furosemide 20 mg tablet Commonly known as: Lasix metoprolol succinate XL 25 mg ER 24 hr tablet Commonly known as: Toprol-XL Anticoagulation (???Blood Thinner?? ) Management upon Discharge: 1. Reason for anticoagulation therapy: post op afib 2. Your warfarin (Coumadin??) dosing instruction upon discharge is: (Follow this schedule below until your first INR check after discharge (usually in 2- 4 days): ??? Day of discharge (day #1): 5 mg ??? Day #2: 5 mg ??? Day #3: 5 mg 3. Follow up INR is scheduled on: Thursday09/29/22 4. INR Goal: 2-3 5. Expected duration of treatment: ~1month pending rhythm 6. Provider/Team responsible for ongoing outpatient anticoagulation management: ??? Provider/Team/Clinic[place] [facility] [place] ??? 7. If you have not received a call from your provider within 24 hrs of having your INR drawn, please call your outpatient provider for further dose instructions. 8. Warfarin (Coumadin??) should be taken at the same time every day, preferably after 5:00 pm. 9. Please review your Warfarin (Coumadin??) Pack upon discharge. 10. If you will be on Warfarin (Coumadin??) indefinitely you should carry an identification card orwear a medical alert bracelet stating that you take Warfarin (Coumadin??). 11. Warfarin Education that was reviewed with you in the hospital: (please see your warfarin (Coumadin) packet for more information) ? Diet and medications can affect your INR ? Maintaining a diet with a consistent amount of vitamin K containing foods is important to keep your INR in range ? Avoid major changes in dietary habits ? Do not take or discontinue any prescription or dcxt-czd-bjuqbre medications without asking your doctor or pharmacist ? Inform all your doctors, pharmacists and other healthcare providers that you take warfarin (Coumadin??) ? Warfarin (Coumadin??) increases your risk of bleeding ? If you experience any of these signs or symptoms of bleeding or blood clot please seek immediate medical attention: - increased pain, swelling or sudden shortness of breath - severe headache - dizziness - unusual bleeding or bruising - changes in urine or bowel movement color - coughing or spitting up of blood, or nosebleeds that do not stop or occur more often The following table shows your most recent INR results and Warfarin (Coumadin??) doses. Please bring this to your first warfarin INR check appointment after discharge. Recent Labs 09/27/22 0444 09/26/22 0004 09/25/22 0013 INR 1.7 1.4 1.3 Hospital Date 09/26 Coumadin Dose 5 mg 5 mg 5 mg Note: Patient was discharged with 5mg tablets. Instructions Given to Patient at Discharge: General Instructions None Cardiac Surgery Discharge Instructions: Call your doctor if: You have a fever of greater than 101 degrees, shaking chills, if you develop redness or drainage from your incision sites, or if you have questions. Please call your surgeon's office if you have any discharge or drainage from your chest incision. Your surgeon, Dr. Mono Purvis and/or the Cardiac Surgery Physician Infrastructure Tech Team may be reached at . Antibiotic prophylaxis: You will need to take antibiotics prior to many invasive tests and treatments, such as dental cleaning, which should be done every 6 months. Your primary care physician or your dentist can prescribe this medication. A one time prescription has been ordered for you today. Anyfuture refills should go through your PCP or Dentist. Please refer to the card with the [place] [employer] Guidelines for more information. You have been provided with a copy of this card. Good dental care is important for your overall health. We recommend waiting ~3 months from your surgery date before returning to your dentist except in cases of emergency. Weight: Weigh yourself daily. Please call the office if you notice increasing weight, increasing fluid retention (edema), and/or SOB. Sternal (breast bone) precautions: No lifting greater than 7-10 pounds; no pushing or pulling with upper extremities; no excessive chest stretching for the first 4 weeks. Further instructions will begiven to you at your follow-up appointment. Activity level: Walk three times a day. You should continue to increase your walks by 1-2 minutes each day. It is expected that you will be walking 20-30 minutes twice a day within 3-4 weeks after discharge to home. Rest between activities and after meals. Use common sense, don't exhaust yourself. Biking: You may use a stationary bicycle whenever you are comfortable enough to permit this. Tighten the resistance slightly. Increase the amount of time on the bicycle as you would do for your walks, a minute or two each day. No biking outside until after your return appointment with Dr. Mono Strong. You may use a [place] [employer] or treadmill but avoid any pulling motion with the arms. Home activities: You may do light housework, e.g. dusting, setting the table, washing dishes, preparing a meal. Light carpentry and gardening are allowed. Avoid trying to open tight jars and stuck windows. No vacuuming, mopping, raking, shoveling, digging or hoeing until after your return visit with the surgeon. Sexual activity: You may engage in sexual activity when you feel ready. Use a position that protects your sternum (breastbone). Do not have your partner lie on your chest. Stairs: There are no restrictions on stair climbing. Use common sense. Don't exhaust yourself. Activities outside the home: After the first week home you may go out to dinner, visit friends, go to a movie, go to episcopalian, etc. Heavy activities: No hunting, skiing, jogging, snow shoveling, snowmobiling, lawn mowing, swimming,golf or tennis until after your return appointment with the surgeon. Do not ride motorcycles, ATV'stractors or horses. Avoid the use of a rifle with kickback against the shoulder for six months. Sleep: Try to establish normal sleep patterns. Long naps during the day may make it hard for you tosleep at night. Use the pain medication at bedtime for the first week at home. Smoking: It is very important that you not smoke after surgery. Smoking cessation education was provided as appropriate. If you need further assistance with this please call and you will be referred to a smoking cessation specialist. Medications: Take only those medications listed on your discharge information. Keep your pain undercontrol so you can be active, do your coughing and breathing exercises and sleep. Contact us if thepain medication isn't working for you. Do not take any herbal preparations until after you return to see the surgeon. Special Physician Instructions: DO NOT USE ANY IBUPROFEN (ADVIL, MOTRIN, ETC) OR OTHER NSAIDS (NONSTEROIDAL ANTI-INFLAMMATORY DRUGS) FOR A TOTAL OF 10 DAYS AFTER SURGERY. PLEASE CONTACT THE CARDIOTHORACIC SURGERY OFFICE IF YOU HAVE QUESTIONS ABOUT WHICH DRUGS YOU SHOULD NOT USE. . Diet: You should follow a regular diet until your appetite returns to normal. At that point in timeyou should resume a low fat, low cholesterol, [place] [employer] Diet/Diabetic diet. Driving: No driving until cleared by your surgeon. Avoid long trips if possible. If you must go on a long trip, stop the car and walk every hour. Shower/Bath: You may shower daily. No baths, soaking, or swimming until cleared by your surgeon. Wound care: Wash your incisions daily with soap and rinse well, pat dry. Assess for any signs of infection such as increased redness, pain, warmth or drainage. Please call your surgeon's office if you have any discharge or drainage from your chest incision. If there is a lot of swelling, apply mesfin wraps during the day and remove at bedtime. Elevate your legs when you are sitting. MEDICATION REFILL REQUESTS - Please note that Cardiac Surgery will not maintain regular refill requests for your medications as these can change during and after your recovery while being managed by your PCP and/or [employer]. For future medication refills, please refer to your PCP and/or [employer] after your discharge from our service. Thank you REMOVE CHEST TUBE SUTURES ON OR AFTER 09/28/22 Home oxygen therapy: N/A Follow up appointments: ??? You should follow up with your PCP, Ulises Singh MD, in 1-2 weeks. ??? You have an appointment with your Cardiac Surgeon, Dr. Mono Purvis, in 4 wks with a chest x-ray, EKG, and Echo before your appointment. Cardiac Rehabilitation: Addis Bridges was seen today regarding participation in the outpatient Phase 2 Cardiac Rehabilitation at [facility]. The patient agrees to a referral to this program. The referral will be sent at discharge and the patient should be contacted by the Program within 1- 2 weeks from discharge. Future Appointments and Orders Future Appointments and Orders Future Appointments Provider Department Dept Phone 10/10/2022 2:00 PM Reynaldo Stack MD; Prabhjot Schuster MD Cardiology at [facility] [place]rive at: [facility] [phone] Future Orders Complete By Expires Referral for Anticoagulation Monitoring [[id number] Custom] As directed Process Instructions: If no progress note charted, please enter Clinical details in comments. Scheduling Instructions: Questions: Risk Factors: My question or request is: Postop atrial fibrillation. Responsible provider Cardiology Dr. Prabhjot Schuster Referral to Cardiac Rehab [[id number] Custom] As directed Process Instructions: If no progress note charted, please enter Clinical details in comments. Scheduling Instructions: Questions: My question or request is: s/p CABG, AVR- cardiac rehab at [facility] Referral to Home Health [[id number] Custom] As directed Process Instructions: If no progress note charted, please enter Clinical details in comments. Scheduling Instructions: Comments: Please evaluate Addis Bridges for admission to Home Health. [address] [place] [address] [id number] (home) Date of : 1960 DOCUMENTATION FOR VNA SERVICES (INCLUDING THOSE PATIENTS WITH MEDICARE COVERAGE REQUIRING HOME VNA SERVICES AND/OR HOSPICE SERVICES) This is preliminary information related to the patient's needs and confirmation of Face to Face Encounter. The denoted information will require completion and an electronic signature by the physicianupon finalization of these orders. PATIENT'S LOCATION: Addis Bridges [address] [place] [id number] (home) Cell: Telephone Information: Greens Laborer's Name: self In discussion with the attending physician, it is certified that this patient is under their care and that they, or a Nurse Practitioner, Clinical Nurse specialist or Physician Infrastructure Tech who is working directly with them, had a face to face encounter that meets the physician face to face encounter requirements with this patient on 09/27/22 The encounter with the patient was in whole, or in part, for the following medical condition, whichis the primary reason for home health care services: s/p aortic root replacement In discussion with the provider, it is certified that, based on their findings, the following services are medically necessary for home health services. To provide the following care/treatments with the clinical findings supporting the need for services as follows: HOME CARE ORDERS: RN orders: Cardiopulmonary assessment, incisional assessment, assess vital signs, assessment of rehab progress, medication management and effectiveness, home safety evaluation. Please draw INR and send result to: [facility] [place] Chest Tube Suture Removal Date 09/29/2022 PT ORDERS: Continue rehab for endurance, gait stability and strength with mobility and transfers. Home safety evaluation. Home exercise program if appropriate. Start of Care Date: 24 - 48 hours after discharge SPECIAL INSTRUCTIONS: For any follow up questions, needs, or issues please call the Cardiology Office at [phone] HOME HEALTH CARE AGENCY: [facility] [address] [place] [id number] Start of care: 24-48 hours post discharge FOR MEDICARE ONLY: In discussion with the attending physician, it is certified that the clinical findings support thatthis patient is homebound i.e. absences from home require considerable and taxing effort due to: Restricted mobility and poor activity tolerance due to recent cardiac surgery. Patient requires assistance of another person to leave the home. Home Health agencies which cover the area of patient's residence have been reviewed, either verbally or in writing, and patient/family have chosen the agency as noted. Questions: Disciplines Requested: Nursing Physical Therapy Arrangements for VNA/home care: As above. Signed: LINDA Mariee [facility] Section of Cardiac Surgery [facility] [phone] FAX [phone] Date: 09/27/2022 CC: MD Kylah De La O John, MD [address] [place] [phone] documented in this encounter Discharge Instructions * Patient Instructions* Trino Calix PA - 09/27/2022 10:00 AM EDT Cardiac Surgery Discharge Instructions: Call your doctor if: You have a fever of greater than 101 degrees, shaking chills, if you develop redness or drainage from your incision sites, or if you have questions. Please call your surgeon's office if you have any discharge or drainage from your chest incision. Your surgeon, Dr. Mono Sanchez. Deon and/or the Cardiac Surgery Physician Infrastructure Tech Team may be reached at . Antibiotic prophylaxis: You will need to take antibiotics prior to many invasive tests and treatments, such as dental cleaning, which should be done every 6 months. Your primary care physician or your dentist can prescribe this medication. A one time prescription has been ordered for you today. Anyfuture refills should go through your PCP or Dentist. Please refer to the card with the [place] [employer] Guidelines for more information. You have been provided with a copy of this card. Good dental care is important for your overall health. We recommend waiting ~3 months from your surgery date before returning to your dentist except in cases of emergency. Weight: Weigh yourself daily. Please call the office if you notice increasing weight, increasing fluid retention (edema), and/or SOB. Sternal (breast bone) precautions: No lifting greater than 7-10 pounds; no pushing or pulling with upper extremities; no excessive chest stretching for the first 4 weeks. Further instructions will begiven to you at your follow-up appointment. Activity level: Walk three times a day. You should continue to increase your walks by 1-2 minutes each day. It is expected that you will be walking 20-30 minutes twice a day within 3-4 weeks after discharge to home. Rest between activities and after meals. Use common sense, don't exhaust yourself. Biking: You may use a stationary bicycle whenever you are comfortable enough to permit this. Tighten the resistance slightly. Increase the amount of time on the bicycle as you would do for your walks, a minute or two each day. No biking outside until after your return appointment with Dr. Mono Strong. You may use a [employer] or treadmill but avoid any pulling motion with the arms. Home activities: You may do light housework, e.g. dusting, setting the table, washing dishes, preparing a meal. Light carpentry and gardening are allowed. Avoid trying to open tight jars and stuck windows. No vacuuming, mopping, raking, shoveling, digging or hoeing until after your return visit with the surgeon. Sexual activity: You may engage in sexual activity when you feel ready. Use a position that protects your sternum (breastbone). Do not have your partner lie on your chest. Stairs: There are no restrictions on stair climbing. Use common sense. Don't exhaust yourself. Activities outside the home: After the first week home you may go out to dinner, visit friends, go to a movie, go to episcopalian, etc. Heavy activities: No hunting, skiing, jogging, snow shoveling, snowmobiling, lawn mowing, swimming,golf or tennis until after your return appointment with the surgeon. Do not ride motorcycles, [employer]'stractors or horses. Avoid the use of a rifle with kickback against the shoulder for six months. Sleep: Try to establish normal sleep patterns. Long naps during the day may make it hard for you tosleep at night. Use the pain medication at bedtime for the first week at home. Smoking: It is very important that you not smoke after surgery. Smoking cessation education was provided as appropriate. If you need further assistance with this please call and you will be referred to a smoking cessation specialist. Medications: Take only those medications listed on your discharge information. Keep your pain undercontrol so you can be active, do your coughing and breathing exercises and sleep. Contact us if thepain medication isn't working for you. Do not take any herbal preparations until after you return to see the surgeon. Special Physician Instructions: DO NOT USE ANY IBUPROFEN (ADVIL, MOTRIN, ETC) OR OTHER NSAIDS (NONSTEROIDAL ANTI-INFLAMMATORY DRUGS) FOR A TOTAL OF 10 DAYS AFTER SURGERY. PLEASE CONTACT THE CARDIOTHORACIC SURGERY OFFICE IF YOU HAVE QUESTIONS ABOUT WHICH DRUGS YOU SHOULD NOT USE. . Diet: You should follow a regular diet until your appetite returns to normal. At that point in timeyou should resume a low fat, low cholesterol, [place] [employer] Diet/Diabetic diet. Driving: No driving until cleared by your surgeon. Avoid long trips if possible. If you must go on a long trip, stop the car and walk every hour. Shower/Bath: You may shower daily. No baths, soaking, or swimming until cleared by your surgeon. Wound care: Wash your incisions daily with soap and rinse well, pat dry. Assess for any signs of infection such as increased redness, pain, warmth or drainage. Please call your surgeon's office if you have any discharge or drainage from your chest incision. If there is a lot of swelling, apply mesfin wraps during the day and remove at bedtime. Elevate your legs when you are sitting. MEDICATION REFILL REQUESTS - Please note that Cardiac Surgery will not maintain regular refill requests for your medications as these can change during and after your recovery while being managed by your PCP and/or High School Auto Rep[employer] Teacher. For future medication refills, please refer to your PCP and/or High School Auto Rep[employer] Teacher after your discharge from our service. Thank you REMOVE CHEST TUBE SUTURES ON OR AFTER 09/28/22 Home oxygen therapy: N/A Follow up appointments: You should follow up with your PCP, Ulises Singh MD, in 1-2 weeks. You have an appointment with your Cardiac Surgeon, Dr. Mono Purvis, in 4 wks with a chest x-ray, EKG, and Echo before your appointment. Cardiac Rehabilitation: Addis Bridges was seen today regarding participation in the outpatient Phase 2 Cardiac Rehabilitation at [facility]. The patient agrees to a referral to this program. The referral will be sent at discharge and the patient should be contacted by the Program within 1- 2 weeks from discharge. * Attachments The following attachments cannot be sent through Care Everywhere. * Aortic Valve Replacement Surgery: Post-op (Portuguese) documented in this encounter Medications at Time of Discharge [...] (E.C.) Take 81 mg by mouth daily. AMIOdarone (Pacerone) 200 mg tablet Take 1 tablet by mouth 2 times daily. 60 tablet 09/27/2022 10/10/2022 torsemide (Demadex) 20 mg tablet Take 1 tablet by mouth daily. 90 tablet 09/27/2022 03/04/2023 spironolactone (Aldactone) 25 mg tablet Take 1 tablet by mouth daily. 90 tablet 3 09/28/2022 09/16/2023 warfarin (Coumadin) 5 mg tablet Take 1 tablet by mouth daily. Further adjustments to coumadin dose by coumadin clinic based on INR. 90 tablet 09/27/2022 10/22/2022 albuterol (PROVENTIL HFA;VENTOLIN HFA;PROAIR) 90 mcg/actuation HFA Aerosol Inhaler Inhale 2 puffs into the lungs every 4 hours as needed for Wheezing. Use with spacer 03/04/2023 documented as of this encounter Progress Notes * Trino Calix PA - 09/27/2022 9:51 AM EDT Cardiac Surgery Progress Note Addis Bridges is a 62 y.o. male who is 9 Days Post-Op Aortic root replacement, CABGx1. PMH of HFrEF, CAD, JOSEPH on CPAP, HTN, HLD, , previous hernia repairs x5, current tobacco use 24h Events: - Rhythm remains AF, rate controlled - Coumadin, INR 1.7 from 1.4 - Ongoing diuresis with lasix/eliecer negative 3L - No overnight events S: Feeling ok, concerned about going home as recently had knee surgery. Is planning on having additional help at home. Slept some. Denies pain, SOB, dizziness, nausea. +bm O: Temp: [36.5 ??C (97.7 ??F)-37.1 ??C (98.7 ??F)] Heart Rate: [76-96] Resp: [13-19] BP: (90-143)/(64-96) SpO2: [90 %-98 %] Heart Rate from SpO2: [50 bpm-89 bpm] 09/26 0701 - 09/27 0700 In: 2420 [P.O.:2400; I.V.:20] Out: 5750 [Urine:5750] Admit weight: 100.24 kg Current weight: Weight: 95.6 kg (210 lb 12.8 oz) Physical Exam: General: laying in bed, appears comfortable Neuro: A&Ox4, no focal deficit. Moving all ext. Lungs: Nonlabored, without wheeze or rales Heart: irregular, no murmur Abdomen: soft, nontender, +bowel sounds Ext: warmer, 1+ LE edema Incisions: incisions clean, dry, intact Tubes/Lines/Drains: PIV Assessment/Plan: 62 y.o. male 9 Days Post-Op Aortic root replacement, CABGx1. Chronic HFrEF. Acute post-op pulmonary insufficiency due to post-op atelectasis. Postop accelerated junctional rhythm. Postop atrial fibrillation. Cont amio 200 BID for 1 month Coumadin 5 daily through weekend, INR on Thursday K replacement Torsemide 20 daily eliecer 25 daily for HFrEF Discharge home Neuro: tylenol, oxy prn, ativan prn, lido patch, melatonin CV: metoprolol 25 bid, atorvastatin 40, amiodarone 200 bid, losartan 25 daily Pulm: ra, IS, nebs GI: regular diet, protonix, rbo's Renal: k prn, transition to torsemide 20 daily, eliecer 25 daily Heme: asa, coumadin ID: periop course complete Endo: no needs Dispo: full code; CSCU, discharge home Discussed with attending surgeon on rounds this morning. LINDA Mariee 09/27/2022 Between the hours of 1800 - 0600 and on the weekends please page [phone]. * Dolores Blue - 09/26/2022 1:35 PM EDT Nutrition Services Note - Low Nutrition Acuity Addis Bridges is a 62 y.o. male Reason for intervention: hospital day 9 Nutrition Plan: Continue diet order Monitor good PO Lasix & aldactone Monitor weight Patient scheduled for a hospital day 9 nutrition evaluation. Sausage Cooker met with pt at bedside. Per documentation patient has excellent PO intakes recorded at 100% over the past 3 days. According to dining services software they have ordered an average ~1398kcals/day within the same duration, when not NPO. Pt shares a good appetite and eats 100% of food received if he likes it. Pt endorses eating more food now than [employer]. Sausage Cooker briefly discussed the [facility] diet with pt and provided contract technical writer Guidelines for a Heart Healthy Lifestyle written education and department contact information per pt request. Kitchen to continue to send desired food selections. Weight loss observed per graph, not clinically s ignificant d/t diuretic per chart. Pt shares actively trying to lose wt and reports a UBW of 215-220lbs. Please update and trend wts to allow for ongoing assessment of weight changes. Clinical Nutrition to monitor and follow. Active Orders Diet Daily Healthy Menu Choices/Cardiac diet ([facility]) Frequency: Effective Now Number of Occurrences: Until Specified Admit Weight: 100.24 kg Estimated body mass index is 33.42 kg/m?? as calculated from the following: Height as of this encounter: 170.2 cm (5' 7). Weight as of this encounter: 96.8 kg (213 lb 6.4 oz). Wt Readings from Last 5 Encounters: 09/26/22 96.8 kg (213 lb 6.4 oz) 09/09/22 99.9 kg (220 lb 4.8 oz) 09/04/22 101.5 kg (223 lb 12.3 oz) Weight loss: not clinically significant Appetite: excellent 100% Food allergies:no known food allergies Chewing/Swallowing difficulty: none Nausea/Vomiting: no nausea and no vomiting Last Bowel Movement: 09/26/22 Patient education / questions: written education and contact information provided GERRI Ellis * Chelsea Yung, KENNETH - 09/26/2022 10:47 AM EDT Cardiac Surgery Progress Note Addis Bridges is a 62 y.o. male who is 8 Days Post-Op Aortic root replacement, CABGx1. PMH of HFrEF, CAD, JOSEPH on CPAP, HTN, HLD, , previous hernia repairs x5, current tobacco use 24h Events: - Rhythm remains AF, rate controlled - Coumadin dosing - Ongoing diuresis with lasix/eliecer - No overnight events S: Feeling ok, concerned about going home as recently had knee surgery. Is planning on having additional help at home. Slept some. Denies pain, SOB, dizziness, nausea. +bm O: Temp: [36.4 ??C (97.5 ??F)-37 ??C (98.6 ??F)] Heart Rate: [75-94] Resp: [14-21] BP: (100-143)/(69-104) SpO2: [92 %-96 %] Heart Rate from SpO2: [51 bpm-81 bpm] 09/25 0701 - 09/26 0700 In: 2460 [P.O.:2450; I.V.:10] Out: 4650 [Urine:4650] Admit weight: 100.24 kg Current weight: Weight: 96.8 kg (213 lb 6.4 oz) Physical Exam: General: laying in bed, appears comfortable Neuro: A&Ox4, no focal deficit. Moving all ext. Lungs: Nonlabored, without wheeze or rales Heart: irregular, no murmur Abdomen: soft, nontender, +bowel sounds Ext: warmer, 1+ LE edema Incisions: incisions clean, dry, intact Tubes/Lines/Drains: PIV Assessment/Plan: 62 y.o. male 8 Days Post-Op Aortic root replacement, CABGx1. Chronic HFrEF. Post-op pulmonary insufficiency due to post-op atelectasis. Postop accelerated junctional rhythm. Postop atrial fibrillation. Cont amio 200 BID Coumadin dosing losartan 25 daily K replacement Cont IV lasix and eliecer PT/Ambulate/Stairs Will wrap right leg with mesfin for support Neuro: tylenol, oxy prn, ativan prn, lido patch, melatonin CV: metoprolol 25 bid, atorvastatin 40, amiodarone 200 bid, losartan 25 daily Pulm: ra, IS, nebs GI: regular diet, protonix, rbo's Renal: k prn, lasix 20 iv bid; eliecer 25 daily Heme: asa, coumadin ID: periop course complete Endo: no needs Dispo: full code; CSCU Discussed with attending surgeon on rounds this morning. CHELSEA YUNG, LADIES LOCKER ROOM ATTENDANT 09/26/2022 Between the hours of 1800 - 0600 and on the weekends please page [phone]. * Isaura Ruby PA - 09/25/2022 9:42 AM EDT Cardiac Surgery Progress Note Addis Bridges is a 62 y.o. male who is 7 Days Post-Op Aortic root replacement, CABGx1. PMH of HFrEF, CAD, JOSEPH on CPAP, HTN, HLD, , previous hernia repairs x5, current tobacco use 24h Events: - Rhythm remains AF, rate controlled - Coumadin dosing - Ongoing diuresis with lasix/eliecer - No overnight events S: Feeling ok, concerned about going home as recently had knee surgery. Also concerned about doing stairs at home. Slept some. Denies pain, SOB, dizziness, nausea. O: Temp: [36.4 ??C (97.6 ??F)-36.9 ??C (98.4 ??F)] Heart Rate: [76-106] Resp: [13-22] BP: (120-142)/(71-116) SpO2: [92 %-97 %] Heart Rate from SpO2: [42 bpm-101 bpm] 09/24 0701 - 09/25 0700 In: 2250 [P.O.:2250] Out: 4600 [Urine:4600] Admit weight: 100.24 kg Current weight: Weight: 98.3 kg (216 lb 11.4 oz) Physical Exam: General: laying in bed, appears comfortable Neuro: A&Ox4, no focal deficit. Moving all ext. Lungs: Nonlabored, without wheeze or rales Heart: irregular, no murmur Abdomen: soft, nontender, +bowel sounds Ext: warmer, 1+ LE edema Incisions: incisions clean, dry, intact Tubes/Lines/Drains: PIV Assessment/Plan: 62 y.o. male 7 Days Post-Op Aortic root replacement, CABGx1. Chronic HFrEF. Post-op pulmonary insufficiency due to post-op atelectasis. Postop accelerated junctional rhythm. Postop atrial fibrillation. Cont amio 200 BID Coumadin dosing Start losartan 25 daily K replacement Cont IV lasix and eliecer PT/Ambulate/Stairs Neuro: tylenol, oxy prn, ativan prn, lido patch, melatonin CV: metoprolol 25 bid, atorvastatin 40, amiodarone 200 bid, losartan 25 daily Pulm: ra, IS, nebs GI: regular diet, protonix, rbo's Renal: k prn, lasix 20 iv bid; eliecer 25 daily Heme: asa, coumadin ID: periop course complete Endo: no needs Dispo: full code; CSCU Discussed with attending surgeon on rounds this morning. LINDA Singh 09/25/2022 Between the hours of 1800 - 0600 and on the weekends please page [phone]. * Shante Rodriguez, PT - 09/25/2022 9:36 AM EDT Physical Therapy evaluation 1 Patient profile: Addis Barrett a 62 y.o. y/o male with history of CAD, JOSEPH, Current smoker, HTN, , HF admitted on 09/18/[address] Mono Purvis MD for Aortic root replacement, CABGx1 on dayof admission . Referred to PT per pathway. Patient with the following active problems: Past Medical History: Diagnosis Date ??? Aortic aneurysm ??? Congenital heart defect ??? Coronary artery disease ??? CPAP (continuous positive airway pressure) dependence ??? Heart valve disease ??? High blood pressure ??? HTN (hypertension) ??? Hyperlipidemia ??? Obstructive sleep apnea ??? Pleuritic chest pain ??? Sleep apnea questionable, sleep center scheduled for 07/09/15 Past Surgical History: Procedure Laterality Date ??? PRO ASCEND AORTA GRFT W ROOT REPLACMT N/A 09/18/2022 @ASCEND AORTA GRAFT, W\CPB, W\WO VALVE SUSPEN; W\ AORTIC ROOT REPLCMNT (WRVU 58.79) performed by Mono Purvis MD at [facility] MAIN OR ??? PRO CABG, VEIN, SINGLE N/A 09/18/2022 @CABG, VEIN ONLY; SINGLE CORONARY VENOUS GRAFT (WRVU 34.98) performed by Mono Purvis MD at [facility] MAIN OR ??? PRO ENDOSCOPY W/VIDEO-ASST VEIN HARVEST, CABG Right 09/18/2022 ENDOSCOPIC HARVEST VEIN(S) FOR CABG (WRVU 0.31) performed by Mono Purvis MD at [facility] MAIN OR Social History: Pt lives with his in a 2 level home with 3 stairs to enter. 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 Precautions/Special Considerations: STERNAL PRECAUTIONS (No pushing, pulling or lifting >8-10lbs); in a-fib Mobility and Positioning Recommendations: ?? Ambulate 3-4x/daily with nursing with supervision. ?? OOB in chair for all meals Subjective: ???I feel better, but I still have pain.?? :I prefer to sit at on the edge of the bed.That chair is terrible. Objective: Pt seen in the ICCU for initial evaluation, post operative protocol exs and precaution teaching w/ transfers and gait. Pt sitting at the EOB at start of session; in bed at end of session with call soler in reach. Vital Signs: BP: 160/92 SpO2: 95% on room air, just finished neb HR: 90 a-fib Incentive Spirometer: 750 mL with cues Pain: 7/10 reported by patient at rest; 8/10 with mobility Mental Status: wnl Skin: Sternal incision CDI. Musculoskeletal: ROM: wfl Strength: B LE's 5/5 Bed Mobility: Pt was instructed in log roll technique prior to demonstrating. Supine ->Sit: with min to mod assist for shoulders out of bed. Sit-> Supine: ind, slowly due to pain. Transfers: Sit to Stand: ind without device, good adherence to precautions. Stand to Sit: ind Gait: Pt walked at slow pace ~150' in the hallway to the stairs. SOB with exertion Balance: wnl Stairs: up and down 9 stairs independently with rail for support at slow pace. Education/Exercise Instruction: Pt issued an exercise list and instructed in the ex's for home including: ankle pumps, shoulder ff to prevent shoulder contractures, IS with deep breathing and cough technique. Instructed in precautions. Assessment: Pt is s/p above CT surgery with sternotomy presenting with expected post operative pain, impaired skin integrity, impaired breathing mechanics, impaired cough, impaired activity toleranceresulting in decreased functional balance, impaired transfers and gait. Pt was mainly limited by SOB with exertion. He has met all inpt PT goals sufficient for home. Plan: D/c inpt PT. Discharge Recommendations: Home with his . Equipment needs for home at d/c: none Patient status, treatment, and mobility recommendations have been discussed with nursing, Care management and Medical team. Thank you for this consult. 2017 PT Evaluation Code Rationale: ?? Diagnosis & Pertinent Co-Morbidities, personal factors, and present illness affecting Plan of Care: (see above); Additional personal factors or co- morbidities that impact plan: ?? Total # of Factors: 0 1-2 3+ x ?? Examination of body system impairments, functional limitations and behaviors, and/or participation restrictions. Addressing 1-2 elements Addressing 3 + elements x Addressing 4 + elements ?? Clinical presentation: See assessment above. Stable/Uncomplicated Evolving/Fluctuating Symptoms Unstable/Unpredictable x ?? Clinical decision making of low complexity based on pt's functional performance as outlined in this evaluation. SHANTE RODRIGUEZ, PT Pager: [phone] Physical Therapy Inpatient Rehabilitation Department Time IN / OUT: Total time: 20 minutes ( ) * Chelsea Yung, LADIES LOCKER ROOM ATTENDANT - 09/24/2022 10:20 AM EDT Cardiac Surgery Progress Note Addis Bridges is a 62 y.o. male who is 6 Days Post-Op Aortic root replacement, CABGx1. PMH of HFrEF, CAD, JOSEPH on CPAP, HTN, HLD, , previous hernia repairs x5, current tobacco use 24h Events: tx to CSCU Back in afib rate controlled, feels fine. No complaints. Metolazone, lasix, eliecer yesterday with 5.4L urine and -4L on the day, weight baseline now S: Doing better. Overall feels good today. No complaints. Feels like he needs to use the bathroom. + flatus. + BM. Denies n/v, fever, chills, Abd pain. O: Temp: [36.3 ??C (97.3 ??F)-36.6 ??C (97.9 ??F)] Heart Rate: [55-101] Resp: [11-20] BP: (118-157)/(75-106) SpO2: [90 %-98 %] Heart Rate from SpO2: [46 bpm-76 bpm] 09/23 0701 - 09/24 0700 In: 1627.6 [P.O.:1590; I.V.:37.6] Out: 6270 [Urine:6270] Admit weight: 100.24 kg Current weight: Weight: 100.4 kg (221 lb 5.5 oz) Physical Exam: General: laying in bed, appears more comfortable Neuro: A&Ox3, NFD. Moving all ext. CN intact. Lungs: LS dim bases otherwise clear. Heart: Accel junct on tele, s1s2 no mrg Abdomen: soft nt +bs Ext: warmer, trace edema Incisions: CDI intact Tubes/Lines/Drains: XR Chest One View Final Result Small bilateral pleural effusions, with bibasilar atelectasis. Thank you for letting us participate in the care of this patient. If you are a health care provider and have any questions regarding this report, please contact the number below. For patients who have questions please contact the health care advocate that requested your imaging first. Electronically signed by: Swathi Carias MD, [facility] ([phone]), at 09/22/2022 6:53 PM XR Chest PA & Lateral (Generic) Final Result * Mild pulmonary vascular congestion. * Small bilateral pleural effusions. * Hazy airspace opacities in bilateral lower lungs: Atelectasis versus infiltrates. Thank you for letting us participate in the care of this patient. If you are a health care provider and have any questions regarding this report, please contact the number below. For patients who have questions please contact the health care advocate that requested your imaging first. Electronically signed by: Marivel Marx MD, [facility] ([phone]), at 09/21/2022 6:02 AM XR Chest One View Final Result Pulmonary vascular congestion, trace effusions and bibasilar atelectasis, compatible with expected postprocedural changes. Thank you for letting us participate in the care of this patient. If you are a health care provider and have any questions regarding this report, please contact the number below. For patients who have questions please contact the health care advocate that requested your imaging first. Electronically signed by: Swathi Carias MD, [facility] ([phone]), at 09/18/2022 7:05 PM Assessment/Plan: 62 y.o. male 6 Days Post-Op Aortic root replacement, CABGx1. Concern due to afib, increased wob and mottling noted to lower ext, low output failure possibly related to afib. Now thathe is out of afib he feels better. Post-op pulmonary insufficiency due to post-op atelectasis. Amio 200 bid continue Start coumadin for post op afib Increase metop to 25 bid. Continue iv lasix and eliecer. Hold on metolazone today Replace k No need for picc Neuro: tylenol, oxy CV: metoprolol 25 bid, atorvastatin 40', amiodarone 200 bid Pulm: ra, IS c/db GI: regular diet, protonix, rbo's Renal: k prn, lasix 20 iv bid; eliecer 25' Heme: asa, coumadin ID: periop course complete Endo: HOMERO Dispo: full code; [facility] Discussed with attending surgeon on rounds this morning. CHELSEA YUNG, KENNETH 09/24/2022 Between the hours of 1800 - 0600 and on the weekends please page [phone]. * Sandra Albrecht RN - 09/24/2022 6:36 AM EDT 21:03: Patient flipped back to Afib with control rates. Asymptomatic. Team aware. Pain controlled with scheduled Tylenol, does not want to take oxycodone anymore. Ambulated around the room to bathroom; tolerated well; maintained sternal precaution. * Minesh Stanley PA - 09/23/2022 8:46 AM EDT Cardiac Surgery Progress Note Addis Bridges is a 62 y.o. male who is 5 Days Post-Op Aortic root replacement, CABGx1. PMH of HFrEF, CAD, JOSEPH on CPAP, HTN, HLD, , previous hernia repairs x5, current tobacco use 24h Events: Transferred back to [facility] for SOB, Malaise, Afib. ECHO with EF 35%, no effusion. Converted to accel junct at 330am. Feels a little better. S: Doing better this AM. Feels getting his strength back slowly. Breathing a little easier this AM.Pain only when coughs. Did not ambulate much yesterday; ready to move around today. Wants to eat. +flatus. + small BM. Denies n/v, fever, chills, Abd pain. O: Temp: [36.4 ??C (97.5 ??F)-36.9 ??C (98.4 ??F)] Heart Rate: [63-86] Resp: [10-21] BP: (97-134)/(70-104) SpO2: [93 %-98 %] Heart Rate from SpO2: [45 bpm-68 bpm] 09/22 0701 - 09/23 0700 In: 869.4 [P.O.:350; I.V.:517.4] Out: 1600 [Urine:1600] Admit weight: 100.24 kg Current weight: Weight: 103.4 kg (227 lb 15.3 oz) Physical Exam: General: laying in bed, appears more comfortable Neuro: A&Ox3, NFD. Moving all ext. CN intact. Lungs: LS dim bases otherwise clear. Heart: Accel junct on tele, s1s2 no mrg Abdomen: soft nt hypoactive bs Ext: cool, trace edema, mottling b/l lower ext Incisions: CDI intact Tubes/Lines/Drains: pw XR Chest One View Final Result Small bilateral pleural effusions, with bibasilar atelectasis. Thank you for letting us participate in the care of this patient. If you are a health care provider and have any questions regarding this report, please contact the number below. For patients who have questions please contact the health care advocate that requested your imaging first. Electronically signed by: Swathi Carias MD, [facility] ([phone]), at 09/22/2022 6:53 PM XR Chest PA & Lateral (Generic) Final Result * Mild pulmonary vascular congestion. * Small bilateral pleural effusions. * Hazy airspace opacities in bilateral lower lungs: Atelectasis versus infiltrates. Thank you for letting us participate in the care of this patient. If you are a health care provider and have any questions regarding this report, please contact the number below. For patients who have questions please contact the health care advocate that requested your imaging first. Electronically signed by: Marivel Marx MD, [facility] ([phone]), at 09/21/2022 6:02 AM XR Chest One View Final Result Pulmonary vascular congestion, trace effusions and bibasilar atelectasis, compatible with expected postprocedural changes. Thank you for letting us participate in the care of this patient. If you are a health care provider and have any questions regarding this report, please contact the number below. For patients who have questions please contact the health care advocate that requested your imaging first. Electronically signed by: Swathi Carias MD, [facility] ([phone]), at 09/18/2022 7:05 PM Assessment/Plan: 62 y.o. male 5 Days Post-Op Aortic root replacement, CABGx1. Concern due to afib, increased wob and mottling noted to lower ext, low output failure possibly related to afib. Now thathe is out of afib he feels better. Post-op pulmonary insufficiency due to post-op atelectasis. Amio 200 bid stop gtt. Cont lasix IV; Metolazone 5mg once and eliecer 25 daily. D/C TPW OK for Diet. Miralax for BM. AMBULATE frequently. Transfer back to [facility]. Neuro: tylenol, oxy CV: metoprolol 12.5 tid, atorvastatin 80', amiodarone 200 bid Pulm: nc wean as able, IS c/db GI: regular diet, protonix, rbo's Renal: k prn, lasix 20 iv bid; eliecer 25'; metolazone x 1 Heme: asa ID: periop course complete Endo: HOMERO Dispo: [facility]CC, full code; transfer to [facility] Discussed with attending surgeon on rounds this morning. LINDA HAWKINS 09/23/2022 Between the hours of 1800 - 0600 and on the weekends please page [phone]. * Alex Rosen RN - 09/23/2022 6:16 AM EDT Change in rhythm @0330hr, accelerated junctional at 60's, bp 122/81mmhg, Dr. Cecilia Woodward informed and ordered EKG. EKG showed, Wide QRS rhythm with premature supraventricular complexes, LBBB. * Shante Rodriguez, PT - 09/22/2022 10:32 AM EDT PT referral received. Chart reviewed and pt interviewed. He was sitting at the EOB, very short of breath and feeling that he could not do anything. He is in a fib, but feels that it is contributing to his ill feeling. He asked to postpone PT. Per nsg he has been up walking short distances without trouble and without a device in the room. Will follow up at a later date. Shante Rodriguez, PT Pager [phone] * Chelsea Yung, [employer] RO[employer] ATTENDANT - 09/22/2022 9:24 AM EDT Cardiac Surgery Progress Note Addis Bridges is a 62 y.o. male who is 4 Days Post-Op Aortic root replacement, CABGx1. PMH of HFrEF, CAD, JOSEPH on CPAP, HTN, HLD, , previous hernia repairs x5, current tobacco use 24h Events: Remains in rate controlled afib amio gtt at 0.5 On 2L o2 S: pt complaining of hyperventilating. On 2L sat ok. But just feels like he has to breath a lot. Also having right shoulder pain, like a knot in his shoulder. +flatus no bm yet O: Temp: [36.2 ??C (97.1 ??F)-36.8 ??C (98.2 ??F)] Heart Rate: [50-97] Resp: [15-21] BP: (99-142)/(71-101) SpO2: [93 %-98 %] Heart Rate from SpO2: [50 bpm-79 bpm] 09/21 0701 - 09/22 0700 In: 1063 [P.O.:1053; I.V.:10] Out: 2600 [Urine:2600] Admit weight: 100.24 kg Current weight: Weight: 102.6 kg (226 lb 3.1 oz) Physical Exam: General: laying in bed,appears uncomfortable Neuro: A&Ox3, NFD. Moving all ext Lungs: LS dim t/o Heart: irrr, s1s2 no mrg Abdomen: soft nt hypoactive bs Ext: cool, trace edema, mottling b/l lower ext Incisions: CDI intact Tubes/Lines/Drains: pw XR Chest PA & Lateral (Generic) Final Result * Mild pulmonary vascular congestion. * Small bilateral pleural effusions. * Hazy airspace opacities in bilateral lower lungs: Atelectasis versus infiltrates. Thank you for letting us participate in the care of this patient. If you are a health care provider and have any questions regarding this report, please contact the number below. For patients who have questions please contact the health care advocate that requested your imaging first. Electronically signed by: Marivel Marx MD, [facility] ([phone]), at 09/21/2022 6:02 AM XR Chest One View Final Result Pulmonary vascular congestion, trace effusions and bibasilar atelectasis, compatible with expected postprocedural changes. Thank you for letting us participate in the care of this patient. If you are a health care provider and have any questions regarding this report, please contact the number below. For patients who have questions please contact the health care advocate that requested your imaging first. Electronically signed by: Swathi Carias MD, [facility] ([phone]), at 09/18/2022 7:05 PM Assessment/Plan: 62 y.o. male 4 Days Post-Op Aortic root replacement, CABGx1. Concern for pericardial effusion due to afib, increased wob and mottling noted to lower ext Will get echo this am rebolus amio for afib, keep gtt Stop losartan Increase metop to tid Lido patches Keep PW Neuro: tylenol, oxy CV: metoprolol 12.5 tid, atorvastatin 80', amiodarone infusion Pulm: nc wean as able, IS c/db GI: regular diet, protonix, rbo's Renal: k prn, lasix 20 iv bid Heme: asa ID: periop course complete Endo: HOMERO Dispo: Floor, full code Discussed with attending surgeon on rounds this morning. CHELSEA YUNG, KENNETH 09/22/2022 Between the hours of 1800 - 0600 and on the weekends please page [phone]. * Jayson Jeronimo MD - 09/21/2022 10:30 AM EDT Cardiac Surgery Progress Note Addis Bridges is a 62 y.o. male who is 3 Days Post-Op Aortic root replacement, CABGx1. PMH of HFrEF, CAD, JOSEPH on CPAP, HTN, HLD, , previous hernia repairs x5, current tobacco use 24h Events: CTs removed Delarosa removed Tolerated clears Went into Afib this morning S: Pain well controlled. Endorses flatus. Denies n/v/dyspnea O: Temp: [36.6 ??C (97.9 ??F)-37.1 ??C (98.8 ??F)] Heart Rate: [64-93] Resp: [17-22] BP: (93-136)/(55-80) SpO2: [90 %-96 %] Heart Rate from SpO2: [40 bpm-65 bpm] 09/20 0701 - 09/21 0700 In: 810 [P.O.:780; I.V.:30] Out: 2447 [Urine:2377] Admit weight: 100.24 kg Current weight: Weight: 102.2 kg (225 lb 5 oz) Physical Exam: General: laying in bed Neuro: A&Ox3, NFD. Moving all ext Lungs: LS clear dim Heart: rrr, s1s2 no mrg Abdomen: soft nt hypoactive bs Ext: wwp, no edema Incisions: CDI intact Tubes/Lines/Drains: pw XR Chest PA & Lateral (Generic) Final Result * Mild pulmonary vascular congestion. * Small bilateral pleural effusions. * Hazy airspace opacities in bilateral lower lungs: Atelectasis versus infiltrates. Thank you for letting us participate in the care of this patient. If you are a health care provider and have any questions regarding this report, please contact the number below. For patients who have questions please contact the health care advocate that requested your imaging first. Electronically signed by: Marivel Marx MD, [facility] ([phone]), at 09/21/2022 6:02 AM XR Chest One View Final Result Pulmonary vascular congestion, trace effusions and bibasilar atelectasis, compatible with expected postprocedural changes. Thank you for letting us participate in the care of this patient. If you are a health care provider and have any questions regarding this report, please contact the number below. For patients who have questions please contact the health care advocate that requested your imaging first. Assessment/Plan: 62 y.o. male 3 Days Post-Op Aortic root replacement, CABGx1. Advance diet Amiodarone for Afib Neuro: tylenol, oxy CV: metoprolol 12.5 bid, atorvastatin 80', losartan 25, amiodarone infusion Pulm: nc wean as able, IS c/db GI: regular diet, protonix, rbo's Renal: k prn, lasix 20 iv bid Heme: asa ID: periop course complete Endo: HOMERO Dispo: Floor, full code Discussed with attending surgeon on rounds this morning. Jayson Jeronimo MD 09/21/2022 Between the hours of 1800 - 0600 and on the weekends please page [phone]. * Trino Calix PA - 09/20/2022 10:19 AM EDT Cardiac Surgery Progress Note Addis Bridges is a 62 y.o. male who is 2 Days Post-Op Aortic root replacement, CABGx1. PMH of HFrEF, CAD, JOSEPH on CPAP, HTN, HLD, , previous hernia repairs x5, current tobacco use 24h Events: No metop for junctional 50s, acc junc 80s this AM on tele CTs kept for air leak, resolved this AM Cozaar started for HTN S: Pretty miserable, cant get comfortable, some pain but manageable. Denies n/v/dyspnea O: Temp: [36.4 ??C (97.5 ??F)-37 ??C (98.6 ??F)] Heart Rate: [57-74] Resp: [12-24] BP: (104-133)/(69-91) SpO2: [89 %-96 %] Heart Rate from SpO2: [56 bpm-71 bpm] 09/19 0701 - 09/20 0700 In: 1436.9 [P.O.:1190; I.V.:246.9] Out: 2235 [Urine:1845] CT 400/120 Admit weight: 100.24 kg Current weight: Weight: 104.5 kg (230 lb 4.8 oz) Physical Exam: General: laying in bed Neuro: A&Ox3, NFD. Moving all ext Lungs: LS clear dim Heart: rrr, s1s2 no mrg Abdomen: soft nt hypoactive bs Ext: wwp, no edema Incisions: CDI intact Tubes/Lines/Drains: pw, delarosa, med ct's Assessment/Plan: 62 y.o. male 2 Days Post-Op Aortic root replacement, CABGx1. CTs out Delarosa out Start low dose metop Await ROBF Neuro: tylenol, oxy CV: metoprolol 12.5 bid, atorvastatin 80', losartan 25 Pulm: nc wean as able, IS c/db GI: NPO until flatus, protonix, rbo's : delarosa out Renal: k prn, lasix 20 iv bid Heme: asa ID: periop course complete Endo: HOMERO Dispo: Floor, full code Discussed with attending surgeon on rounds this morning. LINDA Mariee 09/20/2022 Between the hours of 1800 - 0600 and on the weekends please page [phone]. * Remy Colon MD - 09/19/2022 10:58 AM EDT CARDIAC CRITICAL CARE ATTENDING STAFF PROGRESS NOTE Patient seen and examined. Addis Bridges is a 62 y.o. male with: Active Hospital Problems Diagnosis ??? CAD (coronary artery disease) Resolved Hospital Problems No resolved problems to display. 62 y.o. male with HFrEF, CAD, JOSEPH on CPAP, HTN, HLD, , current tobacco use who is s/p Aortic rootreplacement, CABGx1 on 09/18/22. ASSESSMENT, MANAGEMENT, and DECISION MAKING: Neuro: Pain controlled, neuro intact. CV: HDs off pressors. Last C.I. 2.8. Accelerated junctional on tele. Start BB, ARB. Resp: Oxygenation adequate on NC. Encouraging ambulation, pulm toilet, IS as able. Endo: Euglycemic. GI: ADAT, PPI Renal: Monitor UOP, replete lytes as appropriate, agree with gentle diuresis given reduced LVEF. Heme: ASA, monitor CT output and pull when appropriate, recheck H/H tomorrow ID: Periop abx x 24 hours completed. Afebrile. EXAM: Patient Vitals for the past 168 hrs: Weight 09/19/22 0558 105.5 kg (232 lb 9.4 oz) 09/18/22 1030 100.2 kg (221 lb) Temp: [33.4 ??C (92.1 ??F)-37.8 ??C (100 ??F)] Heart Rate: [56-89] Resp: [10-20] BP: (121-141)/(52-77) SpO2: [94 %-100 %] Heart Rate from SpO2: [57 bpm-83 bpm] Physical Exam Awake and alert CTAB anteriorly RRR, no m S/NT/ND WWP Recent Results (from the past 24 hour(s)) Prepare RBC Result Value Ref Range Dispensed? Yes BLOOD GAS 2 ARTERIAL Result Value Ref Range pH Art 7.38 7.35 - 7.45 pCO2 Art 43 35 - 45 mmHg pO2 Art 256 (H) 85 - 104 mmHg HCO3 Art 24.9 20.0 - 26.0 mmol/L BE Art -0.1 -3.0 - 3.0 mmol/L Hgb Blood Gas 15.4 13.7 - 16.5 g/dL O2HB Art 98.2 (H) 94.0 - 97.0 % COHB Art 1.0 % METHB Art 0.3 <=1.5 % Na Whole Blood 140 135 - 145 mmol/L K Whole Blood 4.3 3.5 - 5.0 mmol/L ICa Whole Blood 1.19 1.15 - 1.33 mmol/L CL Whole Blood 105 98 - 107 mmol/L Gluc Whole Bld 94 65 - 199 mg/dL Lactate WB 1.5 0.5 - 2.2 mmol/L FIO2 Art 80 % PF Ratio Art 320 BLOOD GAS 2 VENOUS Result Value Ref Range pH Chirag 7.31 (L) 7.32 - 7.42 pCO2 Chirag 48 41 - 51 mmHg pO2 Chirag 52 (H) 25 - 40 mmHg HCO3 Chirag 23.4 mmol/L BE Chirag -2.9 mmol/L Hgb Blood Gas 12.5 (L) 13.7 - 16.5 g/dL O2HB Chirag 84.8 % COHB Chirag 0.5 % METHB Chirag 0.3 <=1.5 % Na Whole Blood 137 135 - 145 mmol/L K Whole Blood 4.3 3.5 - 5.0 mmol/L ICa Whole Blood 1.00 (L) 1.15 - 1.33 mmol/L CL Whole Blood 105 98 - 107 mmol/L Gluc Whole Bld 93 65 - 199 mg/dL Lactate WB 1.1 0.5 - 2.2 mmol/L BGas Source Venous BLOOD GAS 2 ARTERIAL Result Value Ref Range pH Art 7.33 (L) 7.35 - 7.45 pCO2 Art 43 35 - 45 mmHg pO2 Art 568 (H) 85 - 104 mmHg HCO3 Art 22.3 20.0 - 26.0 mmol/L BE Art -3.6 (L) -3.0 - 3.0 mmol/L Hgb Blood Gas 12.3 (L) 13.7 - 16.5 g/dL O2HB Art 98.8 (H) 94.0 - 97.0 % COHB Art 0.5 % METHB Art 0.3 <=1.5 % Na Whole Blood 132 (L) 135 - 145 mmol/L K Whole Blood 4.8 3.5 - 5.0 mmol/L ICa Whole Blood 1.01 (L) 1.15 - 1.33 mmol/L CL Whole Blood 103 98 - 107 mmol/L Gluc Whole Bld 94 65 - 199 mg/dL Lactate WB 1.3 0.5 - 2.2 mmol/L BLOOD GAS 2 ARTERIAL Result Value Ref Range pH Art 7.37 7.35 - 7.45 pCO2 Art 42 35 - 45 mmHg pO2 Art 488 (H) 85 - 104 mmHg HCO3 Art 24.0 20.0 - 26.0 mmol/L BE Art -1.3 -3.0 - 3.0 mmol/L Hgb Blood Gas 12.1 (L) 13.7 - 16.5 g/dL O2HB Art 98.9 (H) 94.0 - 97.0 % COHB Art 0.4 % METHB Art 0.3 <=1.5 % Na Whole Blood 134 (L) 135 - 145 mmol/L K Whole Blood 5.0 3.5 - 5.0 mmol/L ICa Whole Blood 1.05 (L) 1.15 - 1.33 mmol/L CL Whole Blood 102 98 - 107 mmol/L Gluc Whole Bld 100 65 - 199 mg/dL Lactate WB 1.4 0.5 - 2.2 mmol/L BLOOD GAS 2 ARTERIAL Result Value Ref Range pH Art 7.38 7.35 - 7.45 pCO2 Art 41 35 - 45 mmHg pO2 Art 462 (H) 85 - 104 mmHg HCO3 Art 23.9 20.0 - 26.0 mmol/L BE Art -1.1 -3.0 - 3.0 mmol/L Hgb Blood Gas 12.7 (L) 13.7 - 16.5 g/dL O2HB Art 99.0 (H) 94.0 - 97.0 % COHB Art 0.3 % METHB Art 0.3 <=1.5 % Na Whole Blood 134 (L) 135 - 145 mmol/L K Whole Blood 5.4 (H) 3.5 - 5.0 mmol/L ICa Whole Blood 1.07 (L) 1.15 - 1.33 mmol/L CL Whole Blood 103 98 - 107 mmol/L Gluc Whole Bld 118 65 - 199 mg/dL Lactate WB 1.6 0.5 - 2.2 mmol/L Fibrinogen Result Value Ref Range Fibrinogen 190 (L) 200 - 393 mg/dL Hemoglobin and Hematocrit, blood Result Value Ref Range Hemoglobin 11.8 (L) 13.7 - 16.5 g/dL Hematocrit 35.4 (L) 40.5 - 48.5 % Platelet count Result Value Ref Range Platelets 164 145 - 357 x10(3)/mcL Plat Immature % 3.8 0.0 - 7.4 % Prepare cryoprecipitate Result Value Ref Range Dispensed? Yes Hemogram Result Value Ref Range WBC 11.8 (H) 4.0 - 9.5 x10(3)/mcL RBC 3.92 (L) 4.58 - 5.54 x10(6)/mcL Hemoglobin 12.1 (L) 13.7 - 16.5 g/dL Hematocrit 35.9 (L) 40.5 - 48.5 % MCV 91.6 82.9 - 93.1 fL MCH 30.9 27.5 - 32.1 pg MCHC 33.7 32.0 - 35.7 g/dL Platelets 160 145 - 357 x10(3)/mcL RDWSD 41.0 36.0 - 45.0 fL RDWCV 12.2 11.4 - 13.8 % MPV 10.1 7.6 - 12.9 fL nRBC % Auto 0.0 % nRBC Abs Auto 0.000 0.000 - 0.000 x10(3)/mcL Prothrombin Time Result Value Ref Range PT 15.7 (H) 9.4 - 12.5 sec INR 1.4 APTT Result Value Ref Range PTT 49 (H) 25 - 37 sec Fibrinogen Result Value Ref Range Fibrinogen 198 (L) 200 - 393 mg/dL Thrombin time Result Value Ref Range Thrombin Time 37 (H) 10 - 17 sec Prepare Platelets, Apheresis Result Value Ref Range Dispensed? Yes BLOOD GAS 2 ARTERIAL Result Value Ref Range pH Art 7.38 7.35 - 7.45 pCO2 Art 36 35 - 45 mmHg pO2 Art 234 (H) 85 - 104 mmHg HCO3 Art 21.2 20.0 - 26.0 mmol/L BE Art -3.8 (L) -3.0 - 3.0 mmol/L Hgb Blood Gas 12.5 (L) 13.7 - 16.5 g/dL O2HB Art 98.9 (H) 94.0 - 97.0 % COHB Art 0.1 % METHB Art 0.3 <=1.5 % Na Whole Blood 135 135 - 145 mmol/L K Whole Blood 5.4 (H) 3.5 - 5.0 mmol/L ICa Whole Blood 1.02 (L) 1.15 - 1.33 mmol/L CL Whole Blood 106 98 - 107 mmol/L Gluc Whole Bld 112 65 - 199 mg/dL Lactate WB 1.6 0.5 - 2.2 mmol/L Hemogram Result Value Ref Range WBC 12.2 (H) 4.0 - 9.5 x10(3)/mcL RBC 3.84 (L) 4.58 - 5.54 x10(6)/mcL Hemoglobin 11.9 (L) 13.7 - 16.5 g/dL Hematocrit 35.4 (L) 40.5 - 48.5 % MCV 92.2 82.9 - 93.1 fL MCH 31.0 27.5 - 32.1 pg MCHC 33.6 32.0 - 35.7 g/dL Platelets 166 145 - 357 x10(3)/mcL RDWSD 41.4 36.0 - 45.0 fL RDWCV 12.2 11.4 - 13.8 % MPV 10.0 7.6 - 12.9 fL nRBC % Auto 0.0 % nRBC Abs Auto 0.000 0.000 - 0.000 x10(3)/mcL Prothrombin Time Result Value Ref Range PT 13.6 (H) 9.4 - 12.5 sec INR 1.2 APTT Result Value Ref Range PTT 51 (H) 25 - 37 sec Fibrinogen Result Value Ref Range Fibrinogen 283 200 - 393 mg/dL Thrombin time Result Value Ref Range Thrombin Time 47 (H) 10 - 17 sec Prepare thawed plasma Result Value Ref Range Dispensed? Yes Prepare Coag Factors (Non-Hemophilia) Result Value Ref Range Dispensed? Yes BLOOD GAS 2 ARTERIAL Result Value Ref Range pH Art 7.28 (CRIT) 7.35 - 7.45 pCO2 Art 46 (H) 35 - 45 mmHg pO2 Art 256 (H) 85 - 104 mmHg HCO3 Art 21.4 20.0 - 26.0 mmol/L BE Art -5.3 (L) -3.0 - 3.0 mmol/L Hgb Blood Gas 13.0 (L) 13.7 - 16.5 g/dL O2HB Art 98.8 (H) 94.0 - 97.0 % COHB Art 0.3 % METHB Art 0.3 <=1.5 % Na Whole Blood 138 135 - 145 mmol/L K Whole Blood 4.6 3.5 - 5.0 mmol/L ICa Whole Blood 1.05 (L) 1.15 - 1.33 mmol/L CL Whole Blood 106 98 - 107 mmol/L Gluc Whole Bld 172 65 - 199 mg/dL Lactate WB 1.8 0.5 - 2.2 mmol/L BLOOD GAS 2 ARTERIAL Result Value Ref Range pH Art 7.31 (L) 7.35 - 7.45 pCO2 Art 49 (H) 35 - 45 mmHg pO2 Art 386 (H) 85 - 104 mmHg HCO3 Art 24.2 20.0 - 26.0 mmol/L BE Art -2.1 -3.0 - 3.0 mmol/L Hgb Blood Gas 11.9 (L) 13.7 - 16.5 g/dL O2HB Art 97.9 (H) 94.0 - 97.0 % COHB Art 0.3 % METHB Art 0.7 <=1.5 % Na Whole Blood 139 135 - 145 mmol/L K Whole Blood 4.3 3.5 - 5.0 mmol/L ICa Whole Blood 1.27 1.15 - 1.33 mmol/L CL Whole Blood 106 98 - 107 mmol/L Gluc Whole Bld 175 65 - 199 mg/dL Lactate WB 2.4 (H) 0.5 - 2.2 mmol/L FIO2 Art 100 % PF Ratio Art 386 Coox2 Result Value Ref Range pO2 Coox 57 mmHg Hgb Blood Gas 11.9 (L) 13.7 - 16.5 g/dL O2HB Coox 86.3 % COHB Coox 0.3 % METHB Coox 0.8 <=1.5 % Source Coox Mixed Venous BLOOD GAS 2 ARTERIAL Result Value Ref Range pH Art 7.40 7.35 - 7.45 pCO2 Art 37 35 - 45 mmHg pO2 Art 66 (L) 85 - 104 mmHg HCO3 Art 22.2 20.0 - 26.0 mmol/L BE Art -2.7 -3.0 - 3.0 mmol/L Hgb Blood Gas 11.4 (L) 13.7 - 16.5 g/dL O2HB Art 91.6 (L) 94.0 - 97.0 % COHB Art 0.3 % METHB Art 0.7 <=1.5 % Na Whole Blood 137 135 - 145 mmol/L K Whole Blood 4.2 3.5 - 5.0 mmol/L ICa Whole Blood 1.27 1.15 - 1.33 mmol/L CL Whole Blood 105 98 - 107 mmol/L Gluc Whole Bld 162 65 - 199 mg/dL Lactate WB 2.1 0.5 - 2.2 mmol/L FIO2 Art 40 % PF Ratio Art 165 Coox2 Result Value Ref Range pO2 Coox 33 mmHg Hgb Blood Gas 11.3 (L) 13.7 - 16.5 g/dL O2HB Coox 65.3 % COHB Coox 0.1 % METHB Coox 0.6 <=1.5 % Source Coox Mixed Venous Potassium Result Value Ref Range Potassium 4.6 3.5 - 5.0 mmol/L Hemoglobin Result Value Ref Range Hemoglobin 10.2 (L) 13.7 - 16.5 g/dL BLOOD GAS 2 ARTERIAL Result Value Ref Range pH Art 7.39 7.35 - 7.45 pCO2 Art 41 35 - 45 mmHg pO2 Art 119 (H) 85 - 104 mmHg HCO3 Art 24.6 20.0 - 26.0 mmol/L BE Art -0.4 -3.0 - 3.0 mmol/L Hgb Blood Gas 12.5 (L) 13.7 - 16.5 g/dL O2HB Art 96.6 94.0 - 97.0 % COHB Art 0.3 % METHB Art 0.8 <=1.5 % Na Whole Blood 138 135 - 145 mmol/L K Whole Blood 4.5 3.5 - 5.0 mmol/L ICa Whole Blood 1.26 1.15 - 1.33 mmol/L CL Whole Blood 105 98 - 107 mmol/L Gluc Whole Bld 143 65 - 199 mg/dL Lactate WB 2.9 (H) 0.5 - 2.2 mmol/L FIO2 Art 40 % PF Ratio Art 298 Coox2 Result Value Ref Range pO2 Coox 35 mmHg Hgb Blood Gas 11.5 (L) 13.7 - 16.5 g/dL O2HB Coox 69.6 % COHB Coox 0.3 % METHB Coox 0.7 <=1.5 % Source Coox Mixed Venous Coox2 Result Value Ref Range pO2 Coox 36 mmHg Hgb Blood Gas 11.2 (L) 13.7 - 16.5 g/dL O2HB Coox 71.6 % COHB Coox 0.3 % METHB Coox 0.7 <=1.5 % Source Coox Mixed Venous BLOOD GAS 2 ARTERIAL Result Value Ref Range pH Art 7.42 7.35 - 7.45 pCO2 Art 37 35 - 45 mmHg pO2 Art 115 (H) 85 - 104 mmHg HCO3 Art 23.9 20.0 - 26.0 mmol/L BE Art -0.5 -3.0 - 3.0 mmol/L Hgb Blood Gas 11.8 (L) 13.7 - 16.5 g/dL O2HB Art 96.8 94.0 - 97.0 % COHB Art 0.3 % METHB Art 0.8 <=1.5 % Na Whole Blood 138 135 - 145 mmol/L K Whole Blood 4.6 3.5 - 5.0 mmol/L ICa Whole Blood 1.20 1.15 - 1.33 mmol/L CL Whole Blood 106 98 - 107 mmol/L Gluc Whole Bld 131 65 - 199 mg/dL Lactate WB 1.8 0.5 - 2.2 mmol/L FIO2 Art 40 % PF Ratio Art 288 Basic Metabolic Panel (non-fasting) Result Value Ref Range Glucose Lvl 148 65 - 199 mg/dL BUN 17 10 - 20 mg/dL Creatinine 0.88 0.80 - 1.50 mg/dL Sodium 140 135 - 145 mmol/L Potassium 4.8 3.5 - 5.0 mmol/L Chloride 107 98 - 107 mmol/L CO2 22 22 - 31 mmol/L Anion Gap 11 5 - 15 mmol/L Calcium 8.7 8.5 - 10.5 mg/dL Estimated GFR 98 >=60 mL/min/1.73 m?? Hemogram Result Value Ref Range WBC 11.6 (H) 4.0 - 9.5 x10(3)/mcL RBC 3.55 (L) 4.58 - 5.54 x10(6)/mcL Hemoglobin 10.8 (L) 13.7 - 16.5 g/dL Hematocrit 32.1 (L) 40.5 - 48.5 % MCV 90.4 82.9 - 93.1 fL MCH 30.4 27.5 - 32.1 pg MCHC 33.6 32.0 - 35.7 g/dL Platelets 168 145 - 357 x10(3)/mcL RDWSD 41.0 36.0 - 45.0 fL RDWCV 12.3 11.4 - 13.8 % MPV 10.1 7.6 - 12.9 fL nRBC % Auto 0.0 % nRBC Abs Auto 0.000 0.000 - 0.000 x10(3)/mcL Differential, Automated Result Value Ref Range Neutrophils % 82.3 % Neutr Abs (ANC) 9.55 (H) 1.70 - 6.10 x10(3)/mcL Lymphocytes % 6.6 % Lymphocytes Abs 0.8 (L) 0.9 - 3.2 x10(3)/mcL Monocytes % 10.2 % Monocyte Abs 1.2 (H) 0.3 - 0.9 x10(3)/mcL Eosinophils % 0.2 % Eosinophils Abs 0.0 0.0 - 0.4 x10(3)/mcL Basophils % 0.3 % Basophils Abs 0.0 0.0 - 0.1 x10(3)/mcL Immature Gran % 0.40 % Roya Gran Abs 0.05 (H) 0.00 - 0.04 x10(3)/mcL BLOOD GAS 2 ARTERIAL Result Value Ref Range pH Art 7.42 7.35 - 7.45 pCO2 Art 36 35 - 45 mmHg pO2 Art 88 85 - 104 mmHg HCO3 Art 22.5 20.0 - 26.0 mmol/L BE Art -2.0 -3.0 - 3.0 mmol/L Hgb Blood Gas 12.2 (L) 13.7 - 16.5 g/dL O2HB Art 95.4 94.0 - 97.0 % COHB Art 0.3 % METHB Art 0.7 <=1.5 % Na Whole Blood 140 135 - 145 mmol/L K Whole Blood 4.8 3.5 - 5.0 mmol/L ICa Whole Blood 1.21 1.15 - 1.33 mmol/L CL Whole Blood 106 98 - 107 mmol/L Gluc Whole Bld 146 65 - 199 mg/dL Lactate WB 1.8 0.5 - 2.2 mmol/L Flow Art 4.0 LPM Coox2 Result Value Ref Range pO2 Coox 34 mmHg Hgb Blood Gas 12.0 (L) 13.7 - 16.5 g/dL O2HB Coox 71.3 % COHB Coox 0.0 % METHB Coox 0.7 <=1.5 % Source Coox Mixed Venous BLOOD GAS 2 ARTERIAL Result Value Ref Range pH Art 7.41 7.35 - 7.45 pCO2 Art 35 35 - 45 mmHg pO2 Art 94 85 - 104 mmHg HCO3 Art 21.8 20.0 - 26.0 mmol/L BE Art -2.9 -3.0 - 3.0 mmol/L Hgb Blood Gas 12.4 (L) 13.7 - 16.5 g/dL O2HB Art 95.8 94.0 - 97.0 % COHB Art 0.3 % METHB Art 0.8 <=1.5 % Na Whole Blood 140 135 - 145 mmol/L K Whole Blood 4.6 3.5 - 5.0 mmol/L ICa Whole Blood 1.20 1.15 - 1.33 mmol/L CL Whole Blood 106 98 - 107 mmol/L Gluc Whole Bld 151 65 - 199 mg/dL Lactate WB 1.8 0.5 - 2.2 mmol/L Flow Art 4.0 LPM Coox2 Result Value Ref Range pO2 Coox 34 mmHg Hgb Blood Gas 12.3 (L) 13.7 - 16.5 g/dL O2HB Coox 69.0 % COHB Coox 0.3 % METHB Coox 0.7 <=1.5 % Source Coox Mixed Venous Troponin Result Value Ref Range Troponin-T HS 341 (H) <=22 ng/L IS PATIENT CRITICALLY ILL ? Is there a high potential of sudden, clinically significant, or life threatening deterioration? No Is there a need for direct personal assessment and management to treat/prevent multiple vital organfailure/deterioration? No * Chelsea Yung APRN - 09/19/2022 9:47 AM EDT Cardiac Surgery Progress Note Addis Bridges is a 62 y.o. male who is 1 Day Post-Op Aortic root replacement, CABGx1. PMH of HFrEF, CAD, JOSEPH on CPAP, HTN, HLD, , previous hernia repairs x5, current tobacco use 24h Events: tx to cvcc post case Extubated without issue at 1 am Off all gtts this am Acc junctional on tele this am S: Pt has yet to get oob due to fem line, but feels ok, some pain but manageable. Denies n/v/dyspnea O: Temp: [33.4 ??C (92.1 ??F)-37.8 ??C (100 ??F)] Heart Rate: [55-89] Resp: [10-20] BP: (121-143)/(45-73) SpO2: [94 %-100 %] Heart Rate from SpO2: [57 bpm-83 bpm] 09/18 0701 - 09/19 0700 In: 6541.4 [I.V.:3771] Out: 3140 [Urine:1715] CT 400/120 Admit weight: 100.24 kg Current weight: Weight: 105.5 kg (232 lb 9.4 oz) Physical Exam: General: laying in bed Neuro: A&Ox3, NFD. Moving all ext Lungs: LS clear dim Heart: rrr, s1s2 no mrg Abdomen: soft nt hypoactive bs Ext: wwp, no edema Incisions: CDI intact Tubes/Lines/Drains: PIV, RIJ, hiram, pw, delarosa, med ct's Assessment/Plan: 62 y.o. male 1 Day Post-Op Aortic root replacement, CABGx1. Pathway Dc fem line oob Likely dc ct's later Start low dose metop Lasix Low dose arb for HTN, Hydralazine prn Likely tx later Neuro: tylenol, oxy CV: metoprolol 12.5 bid, atorvastatin 80', losartan 25 Pulm: nc wean as able, IS c/db GI: protonix, rbo's, adat : delarosa Renal: k prn, lasix 20 iv bid Heme: asa ID: periop course complete Endo: HOMERO Dispo: cvcc, full code, tx to floor later Discussed with attending surgeon on rounds this morning. CHELSEA YUNG, LADIES LOCKER ROOM ATTENDANT 09/19/2022 Between the hours of 1800 - 0600 and on the weekends please page [phone]. * Greer Lew RCP - 09/18/2022 6:00 PM EDT CTICU Protocol Vent Settings: Ventilator Mode: SIMV (VC) + PS Tidal Volume Set: 530 Resp Rate Set: 16 PEEP Set: 5 FiO2: 100 % PSV: 5 Ventilator Measurements: Resp: 16 Vt Exhaled: 557 PIP: 26 Vt Spontaneous: MAP: 8.9 Plateau Press: Ve: 8.3 PEEP: SpO2: 100 % EtCO2: 47 mmHg Airway: 8.0 @ 23 cm at the Teeth. Skin Integrity: WDL Assessment / Events / Plan of the Day: Post op patient arrived and was placed on above noted settings. No ABG drawn as of yet. Greer Lew RCP documented in this encounter Nursing Notes * Zach Morales RN - 09/18/2022 1:25 PM EDT Safety strap applied to patient on transfer to OR bed. Defibrillator pads applied to patient prior to induction. 4mg Nitroglycerin diluted in 20ml NS and delivered to surgical field to be used PRN by surgeon. Patient family updated. documented in this encounter Miscellaneous Notes * Care Management Discharge - Angélica Wasserman RN - 09/27/2022 11:10 AM EDT CARE MANAGEMENT FINAL DISCHARGE NOTE Chart reviewed, care reviewed with primary team and at interdisciplinary rounds. Patient is medically ready for discharge to home with family/friend support and [facility], start of care should be09/28 and next INR on 09/29, team is aware. Needs for Transition of Care: Plan for discharge is: Home w/ Services Outpatient Agency/Support Group Needs: Homecare agency Home Health Services: Registered Nurse, Physical Therapy, Wound care, Anticoagulation monitoring Agency Referrals & Follow-up Care: Contact information for follow-up Home Health & H[facility], [facility] [address] [place] [address] Cardiac Rehab, [address] [place] [address] [address] [place] [address] Transportation: family or friend will provide-via private vehicle. Functional status prior to admission: Independent, Patient Drives Self Home Environment: Others in the home: spouse (Korina). Current Living Arrangements: home/apartment/condo. Accessibility Concerns:8 LUKAS double level home with bedroom/bathroom on second level.. Current Functional Ability: Assistive Person DME used at home: other (see comments), oxygen (CPAP through [facility]; Scale) DME Needed at Discharge: none Patient is insured through: Primary Insurance: MVP Payor: MVP / Plan: MVP [place] / Product Type: *No Product type* / Secondary Insurance: N/A Prescription Coverage: Yes This plan was formulated with input from patient, family (please identify family/friend involved ifapplicable) and team. All are in agreement with plan. Angélica Wasserman MSN, RN Pager #[phone] * Plan of Care - Aniceto Saldana II, RN - 09/27/2022 6:32 AM EDT AOx4. Pain managed with scheduled meds. VSS on RA. A. Fib rate controlled on monitor. Ambulates independently. Possible D/C in AM. Problem: Adult Inpatient Plan of Care Goal: Plan of Care Review Outcome: Ongoing (Interventions Implemented as Appropriate) Goal: Patient-Specific Goal (Individualized) Outcome: Ongoing (Interventions Implemented as Appropriate) Goal: Absence of Hospital-Acquired Illness or Injury Outcome: Ongoing (Interventions Implemented as Appropriate) Goal: Optimal Comfort and Wellbeing Outcome: Ongoing (Interventions Implemented as Appropriate) Goal: Readiness for Transition of Care Outcome: Ongoing (Interventions Implemented as Appropriate) Aniceto Saldana II, RN 09/27/2022 * Plan of Care - Aniceto Saldana II, RN - 09/26/2022 5:30 AM EDT AOx4. Independent in room. VSS on RA. Mild to moderate pain in LLE and around sternal incision. Good urine output. Rate controlled A. Fib on monitor Problem: Adult Inpatient Plan of Care Goal: Plan of Care Review Outcome: Ongoing (Interventions Implemented as Appropriate) Goal: Patient-Specific Goal (Individualized) Outcome: Ongoing (Interventions Implemented as Appropriate) Goal: Absence of Hospital-Acquired Illness or Injury Outcome: Ongoing (Interventions Implemented as Appropriate) Goal: Optimal Comfort and Wellbeing Outcome: Ongoing (Interventions Implemented as Appropriate) Goal: Readiness for Transition of Care Outcome: Ongoing (Interventions Implemented as Appropriate) Aniceto Saldana II, RN 09/26/2022 * Consult Note - Catalina Aguirre RN - 09/24/2022 3:49 PM EDTSummary: Infiltrate Normal saline infiltrate of 12% of right arm. Measurements are 8x6cm with arm circumference being 31cm @ 5cm below AC for right arm compared to 28cm @ 5cm below AC for left arm. No treatment needed. XI Mo and Dr. Stanley notified. * Care Management - Josi Foote, RN - 09/22/2022 11:40 AM EDT OFFICE OF CARE MANAGEMENT PROGRESS NOTE LOS: Hospital Day 4 days Chart reviewed, care reviewed with primary team and at interdisciplinary rounds. Patient continues to meet inpatient level of care related to: CAD; CABG. Per note by oJse Yung APRN on 09/22/2022: Assessment/Plan: 62 y.o. male 4 Days Post-Op Aortic root replacement, CABGx1. Concern for pericardial effusion due to afib, increased wob and mottling noted to lower ext Will get echo this am rebolus amio for afib, keep gtt Stop losartan Increase metop to tid Lido patches Keep PW Decision Maker: Self Functional status prior to admission: Independent, Patient Drives Self Home Environment: Others in the home: spouse (Korina). Current Living Arrangements: home/apartment/condo. Accessibility Concerns: 8 LUKAS double level home with bedroom/bathroom on second level.. Current Functional Ability: Assistive Person DME used at home: other (see comments), oxygen (CPAP through [facility]; Scale) DME Needed at Discharge: No Patient is insured through: Primary Insurance: MVP Payor: MVP / Plan: MVP [place] / Product Type: *No Product type* / Secondary Insurance: N/A Last Physical Therapy Recommendation: with Last Occupational Therapy Recommendation: with Plan for discharge is: Home w/ Services Outpatient Agency/Support Group Needs: Homecare agency Home Health Services: Registered Nurse, Physical Therapy, Wound care, Anticoagulation monitoring Agency Referrals: Not Applicable [facility] following patient. Transportation: family or friend will provide Barriers to discharge: Discharge planning Psych: Adjustment to diagnosis/illness Supports: Caregiver support Plan going forward: Care Management will continue to follow and assist with discharge planning and coordination of care as indicated. Anticipated Date of Discharge: 09/24/2022 * Consult Note - Nicole Bey RN - 09/22/2022 9:47 AM EDT [facility] Addis Bridges was seen today regarding participation in the outpatient Phase 2 Cardiac Rehabilitation at [facility]. The patient agrees to a referral to this program. The referral will be sent at discharge and the patient should be contacted by the Program within 1- 2 weeks from discharge. * Initial Assessments - Josi Foote RN - 09/19/2022 4:41 PM EDT Office of Care Management Initial Assessment Josi Foote RN reviewed record and discussed patient with Care Team. Source of Information: Team, bedside nurse, medical record, and Patient Addis Bridges Introduced self/reviewed role; services accepted. Reason for Hospitalization: surgery Covid Vaccination Status: 1st & 2nd dose (Backplane) Last COVID test: N/A Past medical History: Past Medical History: Diagnosis Date ??? Aortic aneurysm ??? Congenital heart defect ??? Coronary artery disease ??? CPAP (continuous positive airway pressure) dependence ??? Heart valve disease ??? High blood pressure ??? HTN (hypertension) ??? Hyperlipidemia ??? Obstructive sleep apnea ??? Pleuritic chest pain ??? Sleep apnea questionable, sleep center scheduled for 07/09/15 Hospitalizations Within the Past 30 Days: other (see comments) (Planned admission for surgery.) Current Decision-Making Capacity: Self If AD's have not been completed the following surrogate would be surrogate decision maker per [place] surrogate decision making law. (Only good for 180 days) Any patient receiving care in [place] must abide by [place] law. The hierarchy for surrogate decision making is: (a) Patient???s spouse or civil union partner unless there is a divorce proceeding, separation agreement, or restraining order limiting that person???s relationship with the patient. (b) Any adult son or daughter of the patient. (c) Either parent of the patient. (d) Any adult brother or sister of the patient. (e) Any adult grandchild of the patient. (f) Any grandparent of the patient. (g) Any adult aunt, uncle, niece, or nephew of the patient. (h) A close friend of the patient. (i) The agent with financial power of malted milk mixer or a conservator appointed in accordance with RSA 464-A. (j) The guardian of the patient???s estate. Advance Care Planning: Attempt Cardiopulmonary Resuscitation - Inpatient <no information> -Advanced Directive: No, declines (Korina () SDM) Current Coping/Education/Information Needs: Pending hospital course. Patient reported his had a knee replacement on 09/17/2022. Current Functional Ability: Assistive Equipment Functional Status Prior to Admission: Independent, Patient Drives Self Prior ADLs & IADLs: Independent with all ADLs & IADLs Home Environment: Others in the home: spouse (Korina). Current Living Arrangements: home/apartment/condo. Accessibility Concerns:8 LUKAS double level home with bedroom/bathroom on second level.. Resource / Environmental Concerns: Resource/Environmental Concerns: none Current DME: other (see comments), oxygen (CPAP through [facility]; Scale) Home Address confirmed as: [address] [place] [phone] Social & Family Supports: All names listed below confirmed with patient as current and correct Extended Emergency Contact Information Primary Emergency Contact: Korina Decker [address]: [address] [place] [phone] [facility] Mobile Relation: Fiancee Secondary Emergency Contact: Raymundo Spencer Mobile Relation: Sibling Current Care Provided by: self Provides Primary Care For: no one Caregiver if needed: none, spouse Quality of Family relationships: helpful, involved, supportive Community Resources being provided currently: none Behavioral Health History: Denies any. Substance Use/Abuse listed: Social History Tobacco Use Smoking Status Former ??? Packs/day: 1.00 ??? Years: 45.00 ??? Pack years: 45.00 ??? Types: Cigarettes, e-Cigarettes ??? Quit date: 08/23/2022 ??? Years since quittin.0 Smokeless Tobacco Never In the past year have you used an illegal drug or used a prescription medication for non-medical reasons?: No 0 No problems reported 1-2 Low level 3-5 Moderate level 6-8 Substantial level 9- 10 Severe level In the past year have you had 5 or more drinks a day containing alcohol?: No 0 to 7 points: Low risk 8 to 15 points: Medium risk 16 to 19 points: High risk 20 to 40 points: Addiction likely Other Pertinent/Service Specific Information: Pending hospital course. with knee replacement on 09/17/2022. Health/Prescription Coverage: Primary Insurance: [facility] Payor: MVP / Plan: P [place] / Product Type: *No Product type* / Secondary Insurance: N/A ONLY if patient has Medicare A&B - Does this patient have secondary insurance?: (N/A) ; Prescription Coverage: Yes Preferred Pharmacy: [id number] AT [facility] & [address] [phone] [place], [place] - [address] [place] [address] [address] [facility] [address] [facility] [address] Status: Patient is a : No Primary Care Provider listed: Ulises Singh MD [phone] Patient/Caregiver Goals of Treatment: When medically stable discharge to home. Potential Needs for Transition of Care: outpatient care, home health care Agency Referrals: I have met with the patient to: ?? discuss discharge planning needs. ?? provide the [facility], Office of Care Management letter from the Studio Operator pertaining to rehabreferrals. ?? provide a letter describing our affiliations within the [facility] and educate about their right to choose where referrals are sent. ?? provide a list of Home Health Agencies / Durable Medical Equipment vendors which serve their preferred geographic area. ?? provided patient with [facility] Star Quality Rating handout. They have requested referrals to: [facility]. [address] [place] [phone] Note routed to a Community Liaison Officer who will communicate referrals to facilities and provide any required information. Transportation: no concerns Transportation Anticipated: family or friend will provide Concerns to be Addressed: discharge planning Assessment: Patient is admitted to cardiology (CT) service for CAD; CABG. Plan: Monitor patient progress. Assess care needs and make referrals as needed. A member of the Care Management team will continue to monitor progress, follow for continuity of care and assist with transition of care planning. * OR Attestation - Mono Purvis MD - 09/18/2022 9:34 PM EDT Attestation: Case Date: 09/18/2022 I performed this procedure without the involvement of a resident. Mono Purvis MD 09/19/2022 * Brief Op Note - Mono Purvis MD - 09/18/2022 9:33 PM EDT Brief Operative Note Patient Name: Addis Bridges : [id number] MR#: [id number] Case Date: 09/18/2022 Surgeon: Surgeon(s) and Role: * Mono Purvis MD - Primary * Minesh Stanley PA - Physician Infrastructure Tech * Zach Hernandez PA - Physician Infrastructure Tech Preoperative diagnosis: ascending aortic root aneurysm, CAD Postoperative diagnosis: ascending aortic root aneurysm, CAD Procedure(s) (LRB): @ASCEND AORTA GRAFT, W\CPB, W\WO VALVE SUSPEN; W\ AORTIC ROOT REPLCMNT (WRVU 58.79) (N/A) @CABG, VEIN ONLY; SINGLE CORONARY VENOUS GRAFT (WRVU 34.98) (N/A) ENDOSCOPIC HARVEST VEIN(S) FOR CABG (WRVU 0.31) (Right) Anesthesia: General Findings: root aneurysm, severely calcified bicuspid valve, single vessel disease Complications: none Estimated Blood Loss: 1000 mL* No values recorded between 09/18/2022 1:08 PM and 09/18/2022 5:15 PM * Specimens removed during surgery: None Fluids: Intraprocedure Crystalloid Total Intake Lactated Ringers 700.00 mL Sodium Chloride 0.9% 1550.00 mL desmopressin (Ddavp) 30.08 mcg in sodium chloride 0.9% 57.52 mL 57.48 mL Platelets Volume 448 mL Cryoprecipitate Volume 230 mL Cell Saver Volume 1002 mL FFP Volume 1033 mL Total Intake 5020.48 mL Output Urine Output 700 mL Blood Loss 1000 mL Total Output 1700 mL Net Net Volume 3320.48 mL PRBCs: none (See Anesthesia Record/Report for Other Blood Products) Urine Output: 640 mL Drains: 2 med tubes Disposition: taken directly to the ICU, intubated and in a critical condition. Condition: doing well without problems (Please see the Surgical Encounter Summary for any Implant and Specimen details pertinent to this patient.) Surgical Infection Prevention Bundle Used? No * Op Note - Mono Purvis MD - 09/18/2022 1:08 PM EDT Cardiac surgery operative note Preop diagnosis severely stenotic bicuspid aortic valve with associated root aneurysm single-vesselcoronary disease Postop diagnosis same Procedure: 1. Aortic root replacement with 29 mm connect composite tissue root 2. CABG x1 reverse saphenous vein to the mid proximal RCA 3. Endoscopic vein harvest Surgeon Deon MUNOZ Infrastructure Tech kiesha Rose PA-C EBL Cell Saver Findings severely stenotic bicuspid aortic valve with exophytic calcium, dilated aortic root 2 mediastinal tubes 2 rounds of platelets FFP cryo and a half dose of factor VII Procedure patient was taken the operating room had general endotracheal anesthesia all the proper lines and monitors were placed by anesthesia a timeout was performed with the entire team present An incision was made over the chest from the angle of Ady short of the xiphoid cautery was used to get down to the midline of the sternum the sternum was divided along the midline bone wax was lightly applied to the marrow cautery on the sternal edges to antibiotic soaked towels were used to bumper the sternum the sternal millinery copyist was used to open the chest. The right leg was used to dissect out the greater saphenous vein using endoscopic technique with a vertical incision made on the medial aspect of the knee anterior and posterior dissection was carried out using the [employer] system all side branches were cauterized it was ligated removed through theincision at the knee flushed with heparinized saline all side branches were doubly clipped this wasstored in heparinized saline the wounds were closed immediately with Vicryl and Monocryl glue and clean dry sterile dressings were applied The distal a sending aorta was cannulated the right atrium was cannulated in the mid a sending aorta and antegrade was placed the doubled as a root vent with the ACT above 450 we went on bypass. The aorta and pulmonary artery were the aorta was crossclamped the heart was arrested with 1 [place] cardioplegia antegrade and CO2 flooded the field The aorta was transected just proximal to the cross-clamp. The aortic root was dissected out creating 2 buttons for the right coronary and the left coronary the noncoronary sinus was removed the aortic valve was removed sharply and debrided the a sending aorta was removed in its entirety. The root sized to a 29 everting pledgeted sutures were placed around the annulus then through the connect graft and secured into place using the core knot. Using the eye cautery and opening was made for the left coronary button and with a felt strip the anastomosis was completed using a running 4-0Prolene with no evidence of twisting or kinking. The same was done for the right coronary however this time it was placed much higher after sizing it with the heart full. The graft was trimmed for length and the distal graft anastomosis to the distal a sending aorta wasaccomplished with an outer felt strip for reinforcement and a 4-0 Prolene to complete the anastomosis. In the mid a sending aorta was an antegrade that was placed with a single stitch in a hole in the graft. The right coronary artery was identified at the level of the right atrial appendage it was opened in a soft spot beyond all the disease in an end-to-side fashion the anastomosis was created using a running 8-0 Prolene and had excellent flow with the heart full and the root full the vein was measured for length and anastomosed to the right anterior portion of the graft. The cross- clamp was removedthe heart began beating in a regular rhythm there was minimal evidence of bleeding. After testing the valve and de-airing the root vent was taken out tied down and oversewn we from bypass the venous cannula was taken out tied down and oversewn protamine and blood products were given. A persistent amount of venous blood that was small but steady emanated from behind the right coronary button several oversew's and glue were placed there and angled chest to behind the hear t a straight in front AMV wires were applied and the chest was closed with 4 interrupted steel cables with Vanco paste between the edges antibiotic irrigation was used on the wound which was then closed in multiple layers of Vicryl and 4 Monocryl glue and clean dry sterile dressings were applied. After the FFP and a half dose of NovoSeven were given there is [place] no further bleeding with patent chest tubes. Patient was taken to the [facility] in a stable condition. All counts were correct documented in this encounter Plan of Treatment Scheduled Orders Name Type Priority Associated Diagnoses Orde r Schedule EKG 12 Lead ECG Routine Coronary artery disease, unspecified vessel or lesion type, unspecified whether angina present, unspecified whether [place] or transplanted heart One Time for 1 Occurrences starting 09/23/2022 until 09/23/2022 Scheduled Referrals Name Type Priority Associated Diagnoses Order Schedule Referral to Cardiac Rehab Outpatient Referral Routine S/P AVR Ordered: 09/27/2022 Referral to Home Health Outpatient Referral Routine S/P AVR Ordered: 09/27/2022 Referral for Anticoagulation Monitoring Outpatient Referral Routine S/P AVR Ordered: 09/27/2022 documented as of this encounter Procedures Procedure Name Priority Date/Time Associated Diagnosis Comments PROTHROMBIN TIME Routine 09/27/2022 4:44 AM EDT POTASSIUM Routine 09/27/2022 4:44 AM EDT PROTHROMBIN TIME Routine 09/26/2022 12:0 4 AM EDT POTASSIUM Routine 09/26/2022 12:04 AM EDT POTASSIUM STAT 09/25/2022 5:59 AM EDT PROTHROMBIN TIME Routine 09/25/2022 12:1 3 AM EDT POTASSIUM Routine 09/25/2022 12:13 AM EDT LAVENDER TUBE HOLD Routine 09/24/2022 4: 27 AM EDT POTASSIUM Routine 09/24/2022 4:27 AM EDT EKG 12-LEAD STAT 09/23/2022 3:49 AM EDT S/P AVR POTASSIUM Routine 09/23/2022 3:38 AM EDT MAGNESIUM Routine 09/23/2022 3:38 AM EDT XR CHEST ONE VIEW STAT 09/22/2022 6:4 9 PM EDT EKG 12-LEAD Routine 09/22/2022 1:23 PM EDT S/P AVR ECHO LMTD W/O CONTRAST W LMTD SPEC DOPP COLOR DOPP Routine 09/22/2022 10:34 AM EDT S/P AVR POTASSIUM Routine 09/22/2022 5:20 AM EDT MAGNESIUM Routine 09/22/2022 5:20 AM EDT MAGNESIUM Routine 09/21/2022 12:01 PM EDT XR CHEST PA AND LATERAL Routine 09/22/19 5:50 AM EDT HEMOGRAM Routine 09/21/2022 3:27 AM EDT DIFFERENTIAL, AUTOMATED Routine 09/22/19 3:27 AM EDT HC CBC,PLT & AUTO DIFF Routine 3:27 AM EDT BASIC METABOLIC PANEL Routine 09/21/2022 3:27 AM EDT POTASSIUM Routine 09/20/2022 4:04 AM EDT POCT GLUCOSE Routine 09/19/2022 1:15 PM EDT EKG 12-LEAD STAT 09/19/2022 7:20 AM EDT Aortic valve stenosis, etiology of cardiac valve disease unspecified TROPONIN - SERIES Timed 09/19/2022 6:1 3 AM EDT COOX, POC Routine 09/19/2022 5:00 AM EDT BLOOD GAS ARTERIAL POC Routine 4:57 AM EDT COOX, POC Routine 09/19/2022 2:20 AM EDT BLOOD GAS ARTERIAL POC Routine 2:17 AM EDT HEMOGRAM Routine 09/19/2022 2:13 AM EDT DIFFERENTIAL, AUTOMATED Routine 09/20/19 2:13 AM EDT HC CBC,PLT & AUTO DIFF Routine 2:13 AM EDT BASIC METABOLIC PANEL Routine 09/19/2022 2:13 AM EDT EXTUBATE Routine 09/19/2022 1:00 AM EDT BLOOD GAS ARTERIAL POC Routine 12:49 AM EDT COOX, POC Routine 09/19/2022 12:10 AM EDT COOX, POC Routine 09/18/2022 9:41 PM EDT BLOOD GAS ARTERIAL POC Routine 9:38 PM EDT HEMOGLOBIN Routine 09/18/2022 9:31 PM EDT POTASSIUM Routine 09/18/2022 9:31 PM EDT COOX, POC Routine 09/18/2022 8:04 PM EDT BLOOD GAS ARTERIAL POC Routine 3 8:01 PM EDT XR CHEST ONE VIEW STAT 09/18/2022 6:5 1 PM EDT EKG 12-LEAD STAT 09/18/2022 6:38 PM EDT S/P AVR COOX, POC Routine 09/18/2022 6:26 PM EDT BLOOD GAS ARTERIAL POC Routine 3 6:23 PM EDT BLOOD GAS ARTERIAL POC Routine 3 5:19 PM EDT PREPARE COAG FACTORS (NON-HEMOPHILIA) STAT 09/18/2022 5:05 PM EDT PREPARE THAWED PLASMA STAT 09/18/2022 4:50 PM EDT HEMOGRAM STAT 09/18/2022 4:05 PM EDT HC PARTIAL THROMBOPLASTIN TIME STAT 09/18/2022 4:05 PM EDT HC THROMBIN TIME STAT 09/18/2022 4:05 PM EDT PROTHROMBIN TIME STAT 09/18/2022 4:05 PM EDT FIBRINOGEN STAT 09/18/2022 4:05 PM EDT BLOOD GAS ARTERIAL POC Routine 3 3:35 PM EDT PREPARE PLATELETS, APHERESIS STAT 09/18/2022 3:05 PM EDT HEMOGRAM STAT 09/18/2022 3:00 PM EDT HC PARTIAL THROMBOPLASTIN TIME STAT 09/18/2022 3:00 PM EDT HC THROMBIN TIME STAT 09/18/2022 3:00 PM EDT PROTHROMBIN TIME STAT 09/18/2022 3:00 PM EDT FIBRINOGEN STAT 09/18/2022 3:00 PM EDT PREPARE CRYOPRECIPITATE STAT 09/19/19 2:55 PM EDT HC HEMOGLOBIN, BLOOD Routine 09/18/2022 2:53 PM EDT FIBRINOGEN Routine 09/18/2022 2:53 PM EDT PLATELET COUNT Routine 09/18/2022 2:53 PM EDT BLOOD GAS ARTERIAL POC Routine 3 2:42 PM EDT BLOOD GAS ARTERIAL POC Routine 3 2:12 PM EDT SPECIMEN TO PATHOLOGY Routine 09/18/2022 1:58 PM EDT SPECIMEN TO PATHOLOGY Routine 09/18/2022 1:58 PM EDT SURGICAL PATHOLOGY REPORT Routine 09/18/2022 1:56 PM EDT BLOOD GAS ARTERIAL POC Routine 3 1:47 PM EDT BLOOD GAS VENOUS POC Routine 09/18/2022 1:47 PM EDT BLOOD GAS ARTERIAL POC Routine 3 12:42 PM EDT Endoscopy W/Video-Asst Vein [place], Cabg ([id number]) Yes 09/18/2022 12:06 PM EDT ascending aortic root aneurysm, CAD Cabg, Vein, Single ([id number]) Yes 09/18/2022 12:06 PM EDT ascending aortic root aneurysm, CAD Ascend Aorta Grft W Root Replacmt ([id number]) Yes 09/18/2022 12:06 PM EDT ascending aortic root aneurysm, CAD TRANSESOPHAGEAL ECHOCARDIOGRAM IN THE OR Routine 09/18/2022 11:39 AM EDT Aortic valve stenosis, etiology of cardiac valve disease unspecified PREPARE RBC STAT 09/18/2022 11:15 AM EDT LAB SCAN 09/18/2022 12:00 AM EDT IMPLANTABLE DEVICES SCAN 09/18/2022 12:00 AM EDT documented in this encounter Results * (ABNORMAL) Prothrombin Time (09/27/2022 4:44 AM EDT) Prothrombin Time 19.9(H) 9.4 - 12.5 sec [facility] International Normalization Ratio 1.7 [facility] Comment: An INR <2.0 indicates adequate procoagulant activity for hemostasis in most patients without underlying bleeding disorders, though the INR may not adequately reflect hemostatic capacity in patients with liver disease and synthetic impairment. The recommended target INR range for therapeutic anticoagulation is 2.0 ? 3.0 for most applications, though lower and higher ranges may be appropriate depending on clinical circumstances. Blood 09/27/2022 4:44 AM EDT 09/27/2022 4:57 AM EDT Narrative Resulting Agency Comment Spec In Lab Chelsea Dilshad COOPER HEMATOLOGY ORDERAB LES [facility] [address] * Potassium (09/27/2022 4:44 AM EDT) Potassium 4.3 3.5 - 5.0 mmol/L [facility] Comment: Please note: ??Patients with WBC >100,000 may have falsely elevated Potassium levels. ??For accurate Potassium quantification in these patients send serum separator tube (gold top) for subsequent determinations. ??Contact the Clinical Chemistry Laboratory if there are any questions. Blood 09/27/2022 4:44 AM EDT 09/27/2022 4:57 AM EDT Narrative Resulting Agency Comment Spec [facility] Lab [facility] Performing Organization Address [facility] de Phone Number [facility] [address] * (ABNORMAL) Prothrombin Time (09/26/2022 12:04 AM EDT) Prothrombin Time 15.5(H) 9.4 - 12.5 sec [facility] International Normalization Ratio 1.4 [facility] Comment: An INR <2.0 indicates adequate procoagulant activity for hemostasis in most patients without underlying bleeding disorders, though the INR may not adequately reflect hemostatic capacity in patients with liver disease and synthetic impairment. The recommended target INR range for therapeutic anticoagulation is 2.0 ? 3.0 for most applications, though lower and higher ranges may be appropriate depending on clinical circumstances. Blood 09/26/2022 12:0 4 AM EDT 09/26/2022 12:10 AM EDT Narrative Resulting Agency Comment Spec In Lab Chelsea Kempfield [employer] HEMATOLOGY ORDERAB LES Performing Organization Address [facility] de Phone Number [facility] [address] * Potassium (09/26/2022 12:04 AM EDT) Potassium 3.9 3.5 - 5.0 mmol/L [facility] Comment: Please note: ??Patients with WBC >100,000 may have falsely elevated Potassium levels. ??For accurate Potassium quantification in these patients send serum separator tube (gold top) for subsequent determinations. ??Contact the Clinical Chemistry Laboratory if there are any questions. Blood 09/26/2022 12:0 4 AM EDT 09/26/2022 12:10 AM EDT Narrative Resulting Agency Comment Spec In Lab Chelsea Yung KENNETH CHEMISTRY ORDERABL ES Performing Organization Address [facility] Co de Phone Number [facility] [address] * Potassium (09/25/2022 5:59 AM EDT) Potassium 3.9 3.5 - 5.0 mmol/L [facility] Comment: Please note: ??Patients with WBC >100,000 may have falsely elevated Potassium levels. ??For accurate Potassium quantification in these patients send serum separator tube (gold top) for subsequent determinations. ??Contact the Clinical Chemistry Laboratory if there are any questions. Blood 09/25/2022 5:59 AM EDT 09/25/2022 6:05 AM EDT Narrative Resulting Agency Comment Spec In Lab Mono Purvis MD CHEMISTRY ORDERABLE S Performing Organization Address [facility] Co de Phone Number [facility] [address] * (ABNORMAL) Potassium (09/25/2022 12:13 AM EDT) Potassium 3.4(L) 3.5 - 5.0 mmol/L [facility] Comment: Please note: ??Patients with WBC >100,000 may have falsely elevated Potassium levels. ??For accurate Potassium quantification in these patients send serum separator tube (gold top) for subsequent determinations. ??Contact the Clinical Chemistry Laboratory if there are any questions. Blood 09/25/2022 12:1 3 AM EDT 09/25/2022 12:17 AM EDT Narrative Resulting Agency Comment Spec In Lab Chelsea Yung KENNETH CHEMISTRY ORDERABL ES Performing Organization Address [facility] Co de Phone Number [facility] [address] * (ABNORMAL) Prothrombin Time (09/25/2022 12:13 AM EDT) Prothrombin Time 15.1(H) 9.4 - 12.5 sec [facility] International Normalization Ratio 1.3 [facility] Comment: An INR <2.0 indicates adequate procoagulant activity for hemostasis in most patients without underlying bleeding disorders, though the INR may not adequately reflect hemostatic capacity in patients with liver disease and synthetic impairment. The recommended target INR range for therapeutic anticoagulation is 2.0 ? 3.0 for most applications, though lower and higher ranges may be appropriate depending on clinical circumstances. Blood 09/25/2022 12:1 3 AM EDT 09/25/2022 12:18 AM EDT Narrative Resulting Agency Comment Spec In Lab Chelsea Kempfield [employer] HEMATOLOGY ORDERAB LES Performing Organization Address [facility] Co de Phone Number [facility] [address] * Lavender Tube HOLD (09/24/2022 4:27 AM EDT) Lavender Hold Sample in lab. [facility] Blood Venous Draw / Unknown 09/24/2022 4:27 AM EDT 09/24/2022 4:40 AM EDT [facility] ORDER[facility] LES Performing Organization Address [facility] de Phone Number [facility] [address] * Potassium (09/24/2022 4:27 AM EDT) Potassium 3.6 3.5 - 5.0 mmol/L [facility] Comment: Please note: ??Patients with WBC >100,000 may have falsely elevated Potassium levels. ??For accurate Potassium quantification in these patients send serum separator tube (gold top) for subsequent determinations. ??Contact the Clinical Chemistry Laboratory if there are any questions. Blood 09/24/2022 4:27 AM EDT 09/24/2022 4:36 AM EDT Narrative Resulting Agency Comment Spec In Lab Chelsea Kempfield [employer] CHEMISTRY ORDERABL ES Performing Organization Address [facility] Co de Phone Number [facility] [address] * EKG 12 Lead (09/23/2022 3:49 AM EDT) Ventricular rate 70 BPM MUSE SYSTEM QRS Duration 142 ms MUSE SYSTEM Q-T Interval 450 ms MUSE SYSTEM QTC Calculated (Bezet) 486 ms MUSE SYSTEM Calculated R Gill 59 degrees MUSE SYSTEM Calculated T Gill 123 degrees MUSE SYSTEM INTERPRETATION Accelerated Junctional rhythm with retrograde conduction with occasional fusion beats. Left bundle branch block Abnormal ECG When compared with ECG of 22-SEP-2022 13:23, Accelerated Junctional rhythm has replaced Atrial fibrillation Confirmed by Prince Guillory ([id number]) on 09/23/2022 8:38:11 AM MUSE SYSTEM 09/23/2022 3:49 AM EDT 09/23/2022 8:38 AM EDT Mono Purvis MD ECG ORDERABLES MUSE SYSTEM * (ABNORMAL) Magnesium (09/23/2022 3:38 AM EDT) Pathologist [facility] Magnesium 1.09(H) 0.69 - 1.07 mmol/L [facility] Blood Venous Draw / Unknown 09/23/2022 3:38 AM EDT 09/23/2022 4:10 AM EDT Narrative Resulting Agency Comment Spec In Lab Jayson Jeronimo MD CHEMISTRY ORDERABLES Performing Organization Address City/[facility]/ZIP Co de Phone Number [facility] [address] * Potassium (09/23/2022 3:38 AM EDT) Pathologist [facility] Potassium 3.9 3.5 - 5.0 mmol/L [facility] Comment: Please note: ??Patients with WBC >100,000 may have falsely elevated Potassium levels. ??For accurate Potassium quantification in these patients send serum separator tube (gold top) for subsequent determinations. ??Contact the Clinical Chemistry Laboratory if there are any questions. Blood 09/23/2022 3:38 AM EDT 09/23/2022 4:05 AM EDT Narrative Resulting Agency Comment Spec In Lab Chelsea Yung [employer] CHEMISTRY ORDERABL ES [facility] [address] * XR Chest One View (09/22/2022 6:49 PM EDT) Anatomical Region Laterality Modality Chest N/A Digital Radiogra phy Impressions 09/22/2022 6:53 PM EDT Small bilateral pleural effusions, with bibasilar atelectasis. Thank you for letting us participate in the care of this patient. ??If you are a health care provider and have any questions regarding this report, please contact the number below. ??For patients who have questions please contact the health care advocate that requested your imaging first. ? Electronically signed by: Swathi Carias MD, [facility] ([phone]), at 09/22/2022 6:53 PM Narrative 09/22/2022 6:53 PM EDT EXAMINATION: XR CHEST ONE VIEW CLINICAL HISTORY: Increased shortness of breath TECHNIQUE: 1 view of the chest COMPARISON: Chest x-ray, September 21, 2022 FINDINGS: Low lung volumes with crowding of central bronchovascular markings. Blunting of both costophrenic angles with bibasilar opacities. Stable cardiac silhouette with changes of valve replacement noted. Median sternotomy wires are intact. No acute osseous findings. Procedure Note Swathi Carias MD - 09/22/2022 EXAMINATION: XR CHEST ONE VIEW CLINICAL HISTORY: Increased shortness of breath TECHNIQUE: 1 view of the chest COMPARISON: Chest x-ray, September 21, 2022 FINDINGS: Low lung volumes with crowding of central bronchovascular markings.Blunting of both costophrenic angles with bibasilar opacities. Stable cardiacsilhouette with changes of valve replacement noted. Median sternotomy wires areintact. No acute osseous findings. IMPRESSION Small bilateral pleural effusions, with bibasilar atelectasis. Thank you for letting us participate in the care of this patient. If youare a health care provider and have any questions regarding this report,please contact the number below. For patients who have questions please contactthe health care advocate that requested your imaging first. Electronically signed by: Swathi Carias MD, [facility]([phone]), at 09/22/2022 6:53 PM Mono Purvis MD IMG DX ORDERABLES * EKG 12 Lead (09/22/2022 1:23 PM EDT) Pathologist [facility] Ventricular rate 77 BPM MUSE SYSTEM QRS Duration 146 ms MUSE SYSTEM Q-T Interval 436 ms MUSE SYSTEM QTC Calculated (Bezet) 493 ms MUSE SYSTEM Calculated R Gill 21 degrees MUSE SYSTEM Calculated T Gill 112 degrees MUSE SYSTEM INTERPRETATION Atrial fibrillation with a competing junctional pacemaker with premature ventricular or aberrantly conducted complexes Non-specific intra-ventricul ar conduction block Abnormal ECG When compared with ECG of 19-SEP-2022 07:20, Atrial fibrillation has replaced Junctional rhythm Confirmed by MD Porfirio, [facility] ([id number]) on 09/22/2022 4:00:58 PM MUSE SYSTEM 09/22/2022 1:23 PM EDT 09/22/2022 4:00 PM EDT Mono Purvis MD ECG ORDERABLES MUSE SYSTEM * ECHO LMTD W/O CONTRAST W LMTD SPEC DOPP COLOR DOPP (09/22/2022 10:34 AM EDT) [facility] EF 35 HEARTLAB SYSTEM Anatomical Region Laterality Modality Cardiac Other 09/22/2022 9:44 AM EDT Narrative 09/22/2022 10:50 AM EDT ? Echocardiogram Report Name: ADDIS BRIDGES ?Study Date: 09/22/2022 09:44 AMBP: 141/101 mmHg ? Patient Location: [address] : 1960 ? Height: 170 cm ? Account: [id number] Age: 62 yrs ? Weight: 103 kg Gender: Male ?BSA: 2.1 m2 Ordering Physician: CHELSEA YUNG Referring Physician: ULISES SINGH Performed By: Shante Lockett RDCS Exam Location: [facility]. Interpretation Summary The patient is 4 days [...] LVEF estimated at 44% with regional WMA. Procedure Limited - 06508. Color Doppler - 81953. limited spectral 22288. Left Ventricle Left ventricle is moderately dilated. Wall thickness is mildly increased. Left ventricular systolic function is moderately reduced. The left ventricular ejection fraction is 35% by Ramirez's biplane. There is global hypokinesis with regional variation. Right Ventricle The right ventricle is of normal size. Right ventricular systolic function is normal. Left Atrium The left atrium is normal. Right Atrium The right atrium is mildly dilated. Aortic Valve There is a bioprosthetic valve in the aortic position. The date or year of insertion is 09/18/2022. Mitral Valve The mitral valve leaflets are thickened. There is no mitral stenosis. There is mild mitral regurgitation. Tricuspid Valve The tricuspid valve is not well visualized. There is mild tricuspid regurgitation. Great Arteries There is an aortic graft in place. Venous Inferior vena cava is not well visualized. Pericardium/Pleural There is a trivial pericardial effusion. The pericardial effusion is adjacent to the right ventricle. Hemodynamics The peak right ventricular systolic pressure is 12 mmHg. Plus RA presssure. Unable to assess diastolic function. Ejection Fraction ?2D Measurements ? Volumes EF(MOD-bp): 34.8 % ?IVSd: 1.5 cm ? LAV(MOD- bp) Indexed: ?LVIDd: 6.9 cm ?LVIDs: 6.0 cm ?30.7 ml/m2 ?LVPWd: 1.3 cm ?RA A4Cs_phl: 24.7 cm2 ?LV mass(C)d: 498.3 grams ? EDV (MOD-bp) Index: ? 100.6 ?LV mass(C)dI: 233.7 grams/m2 ?? ESV (MOD- bp) Index: 65.6 Doppler TR max humza: 172.0 cm/sec I ?WMSI = 2.00 ? % Normal = 0 ?Segments ??Size X - Cannot ?? 1 - Normal ?? 2 - ? 3 - Akinetic 4 - ?1-2 ? small Interpret ? Hypokinetic ?Dyskinetic ?? 3-5 ? moderate 5 - ? 6-14 ?large Aneurysmal ?15-16 ?? diffuse Procedure Note Milton Infante MD - 09/22/2022 Echocardiogram Report Name: ADDIS BRIDGES Study Date: 309:44 AMBP: 141/101 mmHg Patient Location: [id number] : 1960 Height: 170 cm Account: [id number] Age: 62 yrs Weight: 103 kg Gender: Male BSA: 2.1 m2 Ordering Physician: CHELSEA YUNG Referring Physician: ULISES SINGH Performed By: Shante Lockett [facility] Exam Location: [facility]. Interpretation Summary The patient is 4 days s/p AVR (bioprosthesis), CABG x 1V, and ascendingaorta graft. History of bicuspid valve. Irregular rhythm noted (probable AF). The left ventricle is moderately dilated with moderately reducedsystolic function. The estimated LVEF is 35% with global hypokinesis and minorregional variation. Abnormal septal motion consistent with postoperative state isnoted. The RV is normal in size and systolic function. There is a bioprosthesis in the aortic position (bioprosthesis, unknownsize, placed 09/18/2022). Preop TTE from 09/03/2022 with LVEF estimated at 44% with regional WMA. Procedure Limited - 20370. Color Doppler - 37517. limited spectral 76181. Left Ventricle Left ventricle is moderately dilated. Wall thickness is mildly increased.Left ventricular systolic function is moderately reduced. The left ventricularejection fraction is 35% by Ramirez's biplane. There is global hypokinesis withregional variation. Right Ventricle The right ventricle is of normal size. Right ventricular systolic functionis normal. Left Atrium The left atrium is normal. Right Atrium The right atrium is mildly dilated. Aortic Valve There is a bioprosthetic valve in the aortic position. The date or yearof insertion is 09/18/2022. Mitral Valve The mitral valve leaflets are thickened. There is no mitral stenosis.There is mild mitral regurgitation. Tricuspid Valve The tricuspid valve is not well visualized. There is mild tricuspidregurgitation. Great Arteries There is an aortic graft in place. Venous Inferior vena cava is not well visualized. Pericardium/Pleural There is a trivial pericardial effusion. The pericardial effusion isadjacent to the right ventricle. Hemodynamics The peak right ventricular systolic pressure is 12 mmHg. Plus RApresssure. Unable to assess diastolic function. Ejection Fraction 2D Measurements Volumes EF(MOD-bp): 34.8 % IVSd: 1.5 cm LAV(MOD-bp)Indexed: LVIDd: 6.9 cm LVIDs: 6.0 cm 30.7 ml/m2 LVPWd: 1.3 cm RA A4Cs_phl: 24.7cm2 LV mass(C)d: 498.3 grams EDV (MOD-bp)Index: 100.6 LV mass(C)dI: 233.7 grams/m2 ESV (MOD-bp)Index: 65.6 Doppler TR max humza: 172.0 cm/sec I WMSI = 2.00 % Normal = 0 SegmentsSize X - Cannot 1 - Normal 2 - 3 - Akinetic 4 - 1-2small Interpret Hypokinetic Dyskinetic 3-5moderate 5 - 6-14large Aneurysmal 15-16diffuse Chelsea Yung APRN ECHO ORDERABLES * Magnesium (09/22/2022 5:20 AM EDT) Magnesium 0.89 0.69 - 1.07 mmol/L [facility] Blood Venous Draw / Unknown 09/22/2022 5:20 AM EDT 09/22/2022 5:26 AM EDT Narrative Resulting Agency Comment Spec In Lab Jayson Jeronimo MD CHEMISTRY ORDERABLES [facility] [address] * Potassium (09/22/2022 5:20 AM EDT) Potassium 4.5 3.5 - 5.0 mmol/L [facility] Comment: Please note: ??Patients with WBC >100,000 may have falsely elevated Potassium levels. ??For accurate Potassium quantification in these patients send serum separator tube (gold top) for subsequent determinations. ??Contact the Clinical Chemistry Laboratory if there are any questions. Blood 09/22/2022 5:20 AM EDT 09/22/2022 5:26 AM EDT Narrative Resulting Agency Comment Spec In Lab Chelsea Kempfield [place]IR[place]N CHEMISTRY ORDERABL ES Performing Organization Address City/[facility] Co de Phone Number [facility] [address] * Magnesium (09/21/2022 12:01 PM EDT) Pathologist [facility] Magnesium 0.80 0.69 - 1.07 mmol/L [facility] Blood 09/21/2022 12:0 1 PM EDT 09/21/2022 12:10 PM EDT Narrative Resulting Agency Comment Spec In Lab Mono Purvis MD CHEMISTRY ORDERABLE S Performing Organization Address [facility] Co de Phone Number [facility] [address] * XR Chest PA & Lateral (Generic) (09/21/2022 5:50 AM EDT) Anatomical Region Laterality Modality Chest N/A Digital Radiogra phy Impressions 09/21/2022 6:02 AM EDT * ??Mild pulmonary vascular congestion. * ??Small bilateral pleural effusions. * ??Hazy airspace opacities in bilateral lower lungs: Atelectasis versus infiltrates. Thank you for letting us participate in the care of this patient. ??If you are a health care provider and have any questions regarding this report, please contact the number below. ??For patients who have questions please contact the health care advocate that requested your imaging first. ? Electronically signed by: Marivel Marx MD, [facility] ([phone]), at 09/21/2022 6:02 AM Narrative 09/21/2022 6:02 AM EDT EXAMINATION: XR CHEST PA AND LATERAL (GENERIC) CLINICAL HISTORY: s/p aortic root cabg TECHNIQUE: PA and lateral views of the chest COMPARISON: Chest x-ray 09/18/2022 and 09/09/2022. FINDINGS: Trachea and mainstem bronchi are within normal limits. Unchanged cardiomegaly. Epicardial leads in place. Aortic valve prosthesis. Mild pulmonary vascular congestion. Small bilateral pleural effusions. Hazy airspace opacities in bilateral lower lungs. No pneumothorax. Degenerative changes in the spine. Intact sternal cerclage wires. Procedure Note Renea Marx MD - 09/21/2022 EXAMINATION: XR CHEST PA AND LATERAL (GENERIC) CLINICAL HISTORY: s/p aortic root cabg TECHNIQUE: PA and lateral views of the chest COMPARISON: Chest x-ray 09/18/2022 and 09/09/2022. FINDINGS: Trachea and mainstem bronchi are within normal limits. Unchangedcardiomegaly. Epicardial leads in place. Aortic valve prosthesis. Mild pulmonaryvascular congestion. Small bilateral pleural effusions. Hazy airspace opacitiesin bilateral lower lungs. No pneumothorax. Degenerative changes in thespine. Intact sternal cerclage wires. IMPRESSION * Mild pulmonary vascular congestion. * Small bilateral pleural effusions. * Hazy airspace opacities in bilateral lower lungs: Atelectasis versus infiltrates. Thank you for letting us participate in the care of this patient. If youare a health care provider and have any questions regarding this report,please contact the number below. For patients who have questions please contactthe health care advocate that requested your imaging first. Electronically signed by: Marivel Marx MD, [facility]([phone]), at 09/21/2022 6:02 AM [employer] [facility] [employer] [facility] [employer] [facility] ORDER[facility] * (ABNORMAL) Differential, Automated (09/21/2022 3:27 AM EDT) Neutrophil % 75.5 % [facility] Neutrophil Absolute 10.61(H) 1.70 - 6.10 x10(3)/mc L [facility] Lymph % 12.6 % [facility] Lymphocytes Abs 1.8 0.9 - 3.2 x10(3)/mc L [facility] Monocyte % 10.2 % [facility] Monocyte Abs 1.4(H) 0.3 - 0.9 x10(3)/ L [facility] Eos % 1.0 % [facility] Eosinophils Abs 0.1 0.0 - 0.4 x10(3)/[facility] Basophil % 0.3 % [facility] Baso Absolute 0.0 0.0 - 0.1 x10(3)/ L [facility] Immature Gran % 0.40 % [facility] Comment: Immature granulocytes(IG's)percentage and absolute count will include metamyelocytes, myelocytes, and promyelocytes. Blood smears from CBCs yielding IG's will be scanned manually for concordance. If this scan disagrees with the automated IG or if promyelocytes are noted, a manual differential will be performed. Immature Gran Absolute 0.05(H) 0.00 - 0.04 x10(3)/ L [facility] Blood 09/21/2022 3:27 AM EDT 09/21/2022 3:32 AM EDT Narrative Resulting Agency Comment Spec In Lab [facility] [employer] ATTENDANT HEMATOLOGY ORDERAB LES [facility] [address] * (ABNORMAL) Hemogram (09/21/2022 3:27 AM EDT) White Blood Cell 14.0(H) 4.0 - 9.5 x10(3)/ L [facility] Red Blood Cell 3.35(L) 4.58 - 5.54 x10(6)/mc L [facility] Hemoglobin 10.3(L) 13.7 - 16.5 g/dL [facility] Hematocrit 31.2(L) 40.5 - 48.5 % [facility] Mean Cell Volume 93.1 82.9 - 93.1 fL [facility] Mean Cell Hemoglobin 30.7 27.5 - 32.1 pg [facility] Mean Cell Hemoglobin Concentration 33.0 32.0 - 35.7 g/dL [facility] Platelet 141(L) 145 - 357 x10(3)/mc L [facility] RDW Standard Deviation 42.5 36.0 - 45.0 fL [facility] RDW coefficient of variation 12.5 11.4 - 13.8 % [facility] Mean Platelet Volume 10.1 7.6 - 12.9 fL [facility] NRBC% auto 0.0 % [facility] NRBC Absolute 0.000 0.000 - 0.000 x10(3)/ L [facility] Blood 09/21/2022 3:27 AM EDT 09/21/2022 3:32 AM EDT Narrative Resulting Agency Comment Spec In Lab Chelsea Kempfield COOPER HEMATOLOGY ORDERAB LES [facility] [address] * (ABNORMAL) Basic Metabolic Panel (non-fasting) (09/21/2022 3:27 AM EDT) Glucose 106 65 - 199 mg/dL [facility] Comment:Diabetes: >=200 mg/d L plus symptoms Blood Urea Nitrogen 22(H) 10 - 20 mg/dL [facility] Creatinine 0.75(L) 0.80 - 1.50 mg/dL [facility] Sodium 136 135 - 145 mmol/L [facility] Potassium 4.3 3.5 - 5.0 mmol/L [facility] Comment: Please note: ??Patients with WBC >100,000 may have falsely elevated Potassium levels. ??For accurate Potassium quantification in these patients send serum separator tube (gold top) for subsequent determinations. ??Contact the Clinical Chemistry Laboratory if there are any questions. Chloride 101 98 - 107 mmol/L [facility] Carbon Dioxide 25 22 - 31 mmol/L [facility] Anion Gap 10 5 - 15 mmol/L [facility] Calcium 8.6 8.5 - 10.5 mg/dL [facility] Est Glomerular Filtration Rate 103 >=60 mL/min/1. 73 m?? [facility] Comment: This patient's estimated GFR [...] and symptoms in addition to eGFR. Blood 09/21/2022 3:27 AM EDT 09/21/2022 3:32 AM EDT Narrative Resulting Agency Comment Spec In Lab [facility] [employer] ATTENDANT CHEMISTRY ORDERABL ES Performing Organization Address [facility] Co de Phone Number [facility] [address] * Potassium (09/20/2022 4:04 AM EDT) Potassium 4.4 3.5 - 5.0 mmol/L [facility] Comment: Please note: ??Patients with WBC >100,000 may have falsely elevated Potassium levels. ??For accurate Potassium quantification in these patients send serum separator tube (gold top) for subsequent determinations. ??Contact the Clinical Chemistry Laboratory if there are any questions. Blood 09/20/2022 4:04 AM EDT 09/20/2022 4:27 AM EDT Narrative Resulting Agency Comment Spec In Lab [employer] ATTENDANT CHEMISTRY ORDERABL ES Performing Organization Address City/[facility]/ZIP Co de Phone Number [facility] [address] * POCT Glucose (09/19/2022 1:15 PM EDT) Glucose, POC 137 65 - 199 mg/dL [facility] Comment: Supplemental ranges: <140 mg/dL before meals <180 mg/dL all other times of the day Blood 09/19/2022 1:15 PM EDT 09/19/2022 1:15 PM EDT Mono Purvis MD POINT OF CARE TEST ORDERABLES [facility] [address] * EKG 12 Lead (09/19/2022 7:20 AM EDT) Ventricular rate 73 BPM MUSE SYSTEM Atrial Rate 68 BPM MUSE SYSTEM QRS Duration 124 ms MUSE SYSTEM Q-T Interval 436 ms MUSE SYSTEM QTC Calculated (Bezet) 480 ms MUSE SYSTEM Calculated R Gill 4 degrees MUSE SYSTEM Calculated T Gill 104 degrees MUSE SYSTEM INTERPRETATION Accelerated Junctional rhythm ST & T wave abnormality, consider anterolateral ischemia Abnormal ECG When compared with ECG of 18-SEP-2022 18:38, (unconfirmed) Accelerated Junctional rhythm has replaced Sinus bradycardia Vent. rate has increased BY ??[address] and T wave abnormality are now present I personally reviewed the tracing and edited the fellows interpretation Confirmed by fellow Pedro Andrea ([id number]) on 09/19/2022 10:08:14 AM Confirmed by MD Dominic, Dustin ([id number]) on 09/19/2022 11:20:34 AM MUSE SYSTEM 09/19/2022 7:20 AM EDT 09/19/2022 11:20 AM EDT Chelsea Yung APRN ECG ORDERABLES MUSE SYSTEM * (ABNORMAL) Troponin (09/19/2022 6:13 AM EDT) Troponin-T, High Sensitivity 341(H) <=22 ng/L [facility] Comment: This patient's troponin T concentration was determined using the Tash 5th Generation troponin T assay. The 99th percentile for Troponin T for this test is 14 ng/L for females, and 22 ng/L for males. According to the fourth universal definition of myocardial infarction, the term acute myocardial infarction should be used when there is acute myocardial injury with clinical evidence of acute myocardial ischemia and with detection of a rise and/or fall of cardiac troponin values with at least one value above the 99th percentile and at least one of the following: - Symptoms of myocardial ischemia; - New ischemic ECG changes; - Development of pathological Q waves; - Imaging evidence of new loss of viable myocardium or new regional wall motion abnormality in a pattern consistent with an ischemic etiology; - Identification of a coronary thrombus by angiography or autopsy (not for type 2 or 3 MIs) Serial measurement of troponin and the change in troponin concentration over time (delta) is crucial for the diagnosis of acute myocardial infarction. Guidance on the interpretation of the new 5th Generation Troponin T values and the delta troponin value can be found in the [facility] Laboratory Test Catalog Troponin - [facility] Laboratory Test Catalog Reference: Fourth [place] Definition of Myocardial Infarction. Journal of the [place] [employer] 2018;72:1729-2456 Blood 09/19/2022 6:13 AM EDT 09/19/2022 6:18 AM EDT Narrative Resulting Agency Comment Spec In Lab Mono Purvis MD CHEMISTRY ORDERABLE S [facility] [place] [address] * (ABNORMAL) Coox2 (09/19/2022 5:00 AM EDT) pO2, Coox 34 mmHg [facility] Hgb Blood Gas 12.3(L) 13.7 - 16.5 g/dL [facility] Oxyhemoglobin, Coox 69.0 % [facility] Carboxyhemoglo bin, Coox 0.3 % [facility] Comment: Nonsmokers: 0.5-1.5% COHB Smokers: Variable, but usually less than 10% Toxic: 20-30% COHB Lethal: Greater than 60% COHB Methemoglobin, Coox 0.7 <=1.5 % [facility] Source Coox Mixed Venous [facility] Blood 09/19/2022 5:00 AM EDT 09/19/2022 5:00 AM EDT Mono Purvis MD POINT OF CARE TEST ORDERABLES [facility] [place] [address] * (ABNORMAL) BLOOD GAS 2 ARTERIAL (09/19/2022 4:57 AM EDT) pH, Arterial 7.41 7.35 - 7.45 [facility] PCO2, Arterial 35 35 - 45 mmHg [facility] PO2, Arterial 94 85 - 104 mmHg [facility] Bicarbonate, Arterial 21.8 20.0 - 26.0 mmol/L [facility] Base Excess, Arterial -2.9 -3.0 - 3.0 mmol/L [facility] Hgb Blood Gas 12.4(L) 13.7 - 16.5 g/dL [facility] Oxyhemoglobin, Arterial 95.8 94.0 - 97.0 % [facility] Carboxyhemoglob in, Arterial 0.3 % [facility] Comment: Nonsmokers: 0.5-1.5% COHB Smokers: Variable, but usually less than 10% Toxic: 20-30% COHB Lethal: Greater than 60% COHB Methemoglobin, Arterial 0.8 <=1.5 % [facility] Na Whole Blood 140 135 - 145 mmol/L [facility] K Whole Blood 4.6 3.5 - 5.0 mmol/L [facility] Comment: Please note: Patients with WBC >100,000 may have falsely elevated Potassium levels. Contact the Clinical Chemistry Laboratory if there are any questions. ICa Whole Blood 1.20 1.15 - 1.33 mmol/L [facility] Comment: Note: ??Total bilirubin higher than 20 mg/dL may lead to falsely low ionized calcium. CL Whole Blood 106 98 - 107 mmol/L [facility] Gluc Whole Bld 151 65 - 199 mg/dL [facility] Comment:Diabetes: >=200 mg/d L plus symptoms. Lactate WB 1.8 0.5 - 2.2 mmol/L [facility] Flow Art 4.0 LPM [facility] Blood 09/19/2022 4:57 AM EDT 09/19/2022 4:57 AM EDT Mono Purvis MD POINT OF CARE TEST ORDERABLES Performing Organization Address [facility] Co de Phone Number [facility] [address] * (ABNORMAL) Coox2 (09/19/2022 2:20 AM EDT) pO2, Coox 34 mmHg [facility] Hgb Blood Gas 12.0(L) 13.7 - 16.5 g/dL [facility] Oxyhemoglobin, Coox 71.3 % [facility] Carboxyhemoglo bin, Coox 0.0 % [facility] Comment: Nonsmokers: 0.5-1.5% COHB Smokers: Variable, but usually less than 10% Toxic: 20-30% COHB Lethal: Greater than 60% COHB Methemoglobin, Coox 0.7 <=1.5 % [facility] Source Coox Mixed Venous [facility] Blood 09/19/2022 2:20 AM EDT 09/19/2022 2:20 AM EDT Mono Purvis MD POINT OF CARE TEST ORDERABLES Performing Organization Address [facility] Co de Phone Number [facility] [address] * (ABNORMAL) BLOOD GAS 2 ARTERIAL (09/19/2022 2:17 AM EDT) pH, Arterial 7.42 7.35 - 7.45 [facility] PCO2, Arterial 36 35 - 45 mmHg [facility] PO2, Arterial 88 85 - 104 mmHg [facility] Bicarbonate, Arterial 22.5 20.0 - 26.0 mmol/L [facility] Base Excess, Arterial -2.0 -3.0 - 3.0 mmol/L [facility] Hgb Blood Gas 12.2(L) 13.7 - 16.5 g/dL [facility] Oxyhemoglobin, Arterial 95.4 94.0 - 97.0 % [facility] Carboxyhemoglob in, Arterial 0.3 % [facility] Comment: Nonsmokers: 0.5-1.5% COHB Smokers: Variable, but usually less than 10% Toxic: 20-30% COHB Lethal: Greater than 60% COHB Methemoglobin, Arterial 0.7 <=1.5 % [facility] Na Whole Blood 140 135 - 145 mmol/L [facility] K Whole Blood 4.8 3.5 - 5.0 mmol/L [facility] Comment: Please note: Patients with WBC >100,000 may have falsely elevated Potassium levels. Contact the Clinical Chemistry Laboratory if there are any questions. ICa Whole Blood 1.21 1.15 - 1.33 mmol/L [facility] Comment: Note: ??Total bilirubin higher than 20 mg/dL may lead to falsely low ionized calcium. CL Whole Blood 106 98 - 107 mmol/L [facility] Gluc Whole Bld 146 65 - 199 mg/dL [facility] Comment:Diabetes: >=200 mg/d L plus symptoms. Lactate WB 1.8 0.5 - 2.2 mmol/L [facility] Flow Art 4.0 LPM [facility] Blood 09/19/2022 2:17 AM EDT 09/19/2022 2:17 AM EDT Mono Purvis MD POINT OF CARE TEST ORDERABLES Performing Organization Address City/State/[facility] Co de Phone Number [facility] [address] * (ABNORMAL) Differential, Automated (09/19/2022 2:13 AM EDT) Neutrophil % 82.3 % [facility] Neutrophil Absolute 9.55(H) 1.70 - 6.10 x10(3)/mc L [facility] Lymph % 6.6 % [facility] Lymphocytes Abs 0.8(L) 0.9 - 3.2 x10(3)/mc L [facility] Monocyte % 10.2 % [facility] Monocyte Abs 1.2(H) 0.3 - 0.9 x10(3)/mc L [facility] Eos % 0.2 % [facility] Eosinophils Abs 0.0 0.0 - 0.4 x10(3)/ L [facility] Basophil % 0.3 % [facility] Baso Absolute 0.0 0.0 - 0.1 x10(3)/mc L [facility] Immature Gran % 0.40 % [facility] Comment: Immature granulocytes(IG's)percentage and absolute count will include metamyelocytes, myelocytes, and promyelocytes. Blood smears from CBCs yielding IG's will be scanned manually for concordance. If this scan disagrees with the automated IG or if promyelocytes are noted, a manual differential will be performed. Immature Gran Absolute 0.05(H) 0.00 - 0.04 x10(3)/ L [facility] Blood 09/19/2022 2:13 AM EDT 09/19/2022 2:34 AM EDT Narrative Resulting Agency Comment Spec In Lab Minesh MCKEON HEMATOLOGY ORDER CARO Performing Organization Address City/State/[facility] Co de Phone Number [facility] [address] * (ABNORMAL) Hemogram (09/19/2022 2:13 AM EDT) White Blood Cell 11.6(H) 4.0 - 9.5 x10(3)/ L [facility] Red Blood Cell 3.55(L) 4.58 - 5.54 x10(6)/[facility] Hemoglobin 10.8(L) 13.7 - 16.5 g/dL [facility] Hematocrit 32.1(L) 40.5 - 48.5 % [facility] Mean Cell Volume 90.4 82.9 - 93.1 fL [facility] Mean Cell Hemoglobin 30.4 27.5 - 32.1 pg [facility] Mean Cell Hemoglobin Concentration 33.6 32.0 - 35.7 g/dL [facility] Platelet 168 145 - 357 x10(3)/[facility] RDW Standard Deviation 41.0 36.0 - 45.0 fL [facility] RDW coefficient of variation 12.3 11.4 - 13.8 % [facility] Mean Platelet Volume 10.1 7.6 - 12.9 fL [facility] NRBC% auto 0.0 % [facility] NRBC Absolute 0.000 0.000 - 0.000 x10(3)/mc L [facility] Blood 09/19/2022 2:13 AM EDT 09/19/2022 2:34 AM EDT Narrative Resulting Agency Comment Spec In Lab Minesh MCKEON HEMATOLOGY ORDER CARO [facility] [address] * Basic Metabolic Panel (non-fasting) (09/19/2022 2:13 AM EDT) Glucose 148 65 - 199 mg/dL [facility] Comment:Diabetes: >=200 mg/d L plus symptoms Blood Urea Nitrogen 17 10 - 20 mg/dL [facility] Creatinine 0.88 0.80 - 1.50 mg/dL [facility] Sodium 140 135 - 145 mmol/L [facility] Potassium 4.8 3.5 - 5.0 mmol/L [facility] Comment: Please note: ??Patients with WBC >100,000 may have falsely elevated Potassium levels. ??For accurate Potassium quantification in these patients send serum separator tube (gold top) for subsequent determinations. ??Contact the Clinical Chemistry Laboratory if there are any questions. Chloride 107 98 - 107 mmol/L [facility] Carbon Dioxide 22 22 - 31 mmol/L [facility] Anion Gap 11 5 - 15 mmol/L [facility] Calcium 8.7 8.5 - 10.5 mg/dL [facility] Est Glomerular Filtration Rate 98 >=60 mL/min/1. 73 m?? [facility] Comment: This patient's estimated GFR [...] and symptoms in addition to eGFR. Blood 09/19/2022 2:13 AM EDT 09/19/2022 2:34 AM EDT Narrative Resulting Agency Comment Spec In Lab Mono Purvis MD CHEMISTRY ORDERABLE S [facility] [place] [address] * (ABNORMAL) BLOOD GAS 2 ARTERIAL (09/19/2022 12:49 AM EDT) pH, Arterial 7.42 7.35 - 7.45 [facility] PCO2, Arterial 37 35 - 45 mmHg [facility] PO2, Arterial 115(H) 85 - 104 mmHg [facility] Bicarbonate, Arterial 23.9 20.0 - 26.0 mmol/L [facility] Base Excess, Arterial -0.5 -3.0 - 3.0 mmol/L [facility] Hgb Blood Gas 11.8(L) 13.7 - 16.5 g/dL [facility] Oxyhemoglobin, Arterial 96.8 94.0 - 97.0 % [facility] Carboxyhemoglob in, Arterial 0.3 % [facility] Comment: Nonsmokers: 0.5-1.5% COHB Smokers: Variable, but usually less than 10% Toxic: 20-30% COHB Lethal: Greater than 60% COHB Methemoglobin, Arterial 0.8 <=1.5 % [facility] Na Whole Blood 138 135 - 145 mmol/L [facility] K Whole Blood 4.6 3.5 - 5.0 mmol/L [facility] Comment: Please note: Patients with WBC >100,000 may have falsely elevated Potassium levels. Contact the Clinical Chemistry Laboratory if there are any questions. ICa Whole Blood 1.20 1.15 - 1.33 mmol/L [facility] Comment: Note: ??Total bilirubin higher than 20 mg/dL may lead to falsely low ionized calcium. CL Whole Blood 106 98 - 107 mmol/L [facility] Gluc Whole Bld 131 65 - 199 mg/dL [facility] Comment:Diabetes: >=200 mg/d L plus symptoms. Lactate WB 1.8 0.5 - 2.2 mmol/L [facility] FIO2 Art 40 % [facility] PF Ratio Art 288 [facility] Blood 09/19/2022 12:4 9 AM EDT 09/19/2022 12:49 AM EDT Mono Purvis MD POINT OF CARE TEST ORDERABLES Performing Organization Address [facility] Co de Phone Number [facility] [address] * (ABNORMAL) Coox2 (09/19/2022 12:10 AM EDT) pO2, Coox 36 mmHg [facility] Hgb Blood Gas 11.2(L) 13.7 - 16.5 g/dL [facility] Oxyhemoglobin, Coox 71.6 % [facility] Carboxyhemoglo bin, Coox 0.3 % [facility] Comment: Nonsmokers: 0.5-1.5% COHB Smokers: Variable, but usually less than 10% Toxic: 20-30% COHB Lethal: Greater than 60% COHB Methemoglobin, Coox 0.7 <=1.5 % [facility] Source Coox Mixed Venous [facility] Blood 09/19/2022 12:1 0 AM EDT 09/19/2022 12:10 AM EDT Mono Purvis MD POINT OF CARE TEST ORDERABLES Performing Organization Address City/[facility] Co de Phone Number [facility] [address] * (ABNORMAL) Coox2 (09/18/2022 9:41 PM EDT) pO2, Coox 35 mmHg [facility] Hgb Blood Gas 11.5(L) 13.7 - 16.5 g/dL [facility] Oxyhemoglobin, Coox 69.6 % [facility] Carboxyhemoglo bin, Coox 0.3 % [facility] Comment: Nonsmokers: 0.5-1.5% COHB Smokers: Variable, but usually less than 10% Toxic: 20-30% COHB Lethal: Greater than 60% COHB Methemoglobin, Coox 0.7 <=1.5 % [facility] Source Coox Mixed Venous [facility] Blood 09/18/2022 9:41 PM EDT 09/18/2022 9:41 PM EDT Mono Purvis MD POINT OF CARE TEST ORDERABLES [facility] [place] [address] * (ABNORMAL) BLOOD GAS 2 ARTERIAL (09/18/2022 9:38 PM EDT) pH, Arterial 7.39 7.35 - 7.45 [facility] PCO2, Arterial 41 35 - 45 mmHg [facility] PO2, Arterial 119(H) 85 - 104 mmHg [facility] Bicarbonate, Arterial 24.6 20.0 - 26.0 mmol/L [facility] Base Excess, Arterial -0.4 -3.0 - 3.0 mmol/L [facility] Hgb Blood Gas 12.5(L) 13.7 - 16.5 g/dL [facility] Oxyhemoglobin, Arterial 96.6 94.0 - 97.0 % [facility] Carboxyhemoglob in, Arterial 0.3 % [facility] Comment: Nonsmokers: 0.5-1.5% COHB Smokers: Variable, but usually less than 10% Toxic: 20-30% COHB Lethal: Greater than 60% COHB Methemoglobin, Arterial 0.8 <=1.5 % [facility] Na Whole Blood 138 135 - 145 mmol/L [facility] K Whole Blood 4.5 3.5 - 5.0 mmol/L [facility] Comment: Please note: Patients with WBC >100,000 may have falsely elevated Potassium levels. Contact the Clinical Chemistry Laboratory if there are any questions. ICa Whole Blood 1.26 1.15 - 1.33 mmol/L [facility] Comment: Note: ??Total bilirubin higher than 20 mg/dL may lead to falsely low ionized calcium. CL Whole Blood 105 98 - 107 mmol/L [facility] Gluc Whole Bld 143 65 - 199 mg/dL [facility] Comment:Diabetes: >=200 mg/d L plus symptoms. Lactate WB 2.9(H) 0.5 - 2.2 mmol/L [facility] FIO2 Art 40 % [facility] PF Ratio Art 298 [facility] Blood 09/18/2022 9:38 PM EDT 09/18/2022 9:38 PM EDT Mono Purvis MD POINT OF CARE TEST ORDERABLES [facility] [place] [address] * (ABNORMAL) Hemoglobin (09/18/2022 9:31 PM EDT) Hemoglobin 10.2(L) 13.7 - 16.5 g/dL [facility] Blood 09/18/2022 9:31 PM EDT 09/18/2022 9:42 PM EDT Narrative Resulting Agency Comment Spec In Lab Mono Purvis MD HEMATOLOGY ORDERABL ES Performing Organization Address [facility] Co de Phone Number [facility] [place] [address] * Potassium (09/18/2022 9:31 PM EDT) Potassium 4.6 3.5 - 5.0 mmol/L [facility] Comment: Please note: ??Patients with WBC >100,000 may have falsely elevated Potassium levels. ??For accurate Potassium quantification in these patients send serum separator tube (gold top) for subsequent determinations. ??Contact the Clinical Chemistry Laboratory if there are any questions. Blood 09/18/2022 9:31 PM EDT 09/18/2022 9:41 PM EDT Narrative Resulting Agency Comment Spec In Lab Mono Purvis MD CHEMISTRY ORDERABLE S Performing Organization Address [facility]/ZIP Co de Phone Number [facility] [address] * (ABNORMAL) Coox2 (09/18/2022 8:04 PM EDT) pO2, Coox 33 mmHg [facility] Hgb Blood Gas 11.3(L) 13.7 - 16.5 g/dL [facility] Oxyhemoglobin, Coox 65.3 % [facility] Carboxyhemoglo bin, Coox 0.1 % [facility] Comment: Nonsmokers: 0.5-1.5% COHB Smokers: Variable, but usually less than 10% Toxic: 20-30% COHB Lethal: Greater than 60% COHB Methemoglobin, Coox 0.6 <=1.5 % [facility] Source Coox Mixed Venous [facility] Blood 09/18/2022 8:04 PM EDT 09/18/2022 8:04 PM EDT Mono Purvis MD POINT OF CARE TEST ORDERABLES Performing Organization Address City/State/[facility] Co de Phone Number [facility] [address] * (ABNORMAL) BLOOD GAS 2 ARTERIAL (09/18/2022 8:01 PM EDT) pH, Arterial 7.40 7.35 - 7.45 [facility] PCO2, Arterial 37 35 - 45 mmHg [facility] PO2, Arterial 66(L) 85 - 104 mmHg [facility] Bicarbonate, Arterial 22.2 20.0 - 26.0 mmol/L [facility] Base Excess, Arterial -2.7 -3.0 - 3.0 mmol/L [facility] Hgb Blood Gas 11.4(L) 13.7 - 16.5 g/dL [facility] Oxyhemoglobin, Arterial 91.6(L) 94.0 - 97.0 % [facility] Carboxyhemoglob in, Arterial 0.3 % [facility] Comment: Nonsmokers: 0.5-1.5% COHB Smokers: Variable, but usually less than 10% Toxic: 20-30% COHB Lethal: Greater than 60% COHB Methemoglobin, Arterial 0.7 <=1.5 % [facility] Na Whole Blood 137 135 - 145 mmol/L [facility] K Whole Blood 4.2 3.5 - 5.0 mmol/L [facility] Comment: Please note: Patients with WBC >100,000 may have falsely elevated Potassium levels. Contact the Clinical Chemistry Laboratory if there are any questions. ICa Whole Blood 1.27 1.15 - 1.33 mmol/L [facility] Comment: Note: ??Total bilirubin higher than 20 mg/dL may lead to falsely low ionized calcium. CL Whole Blood 105 98 - 107 mmol/L [facility] Gluc Whole Bld 162 65 - 199 mg/dL [facility] Comment:Diabetes: >=200 mg/d L plus symptoms. Lactate WB 2.1 0.5 - 2.2 mmol/L [facility] FIO2 Art 40 % [facility] PF Ratio Art 165 [facility] Blood 09/18/2022 8:01 PM EDT 09/18/2022 8:01 PM EDT Mono Purvis MD POINT OF CARE TEST ORDERABLES Performing Organization Address City/State/[facility] Co de Phone Number [facility] [place] [address] * XR Chest One View (09/18/2022 6:51 PM EDT) Anatomical Region Laterality Modality Chest N/A Digital Radiogra phy Impressions 09/18/2022 7:05 PM EDT Pulmonary vascular congestion, trace effusions and bibasilar atelectasis, compatible with expected postprocedural changes. Thank you for letting us participate in the care of this patient. ??If you are a health care provider and have any questions regarding this report, please contact the number below. ??For patients who have questions please contact the health care advocate that requested your imaging first. ? Electronically signed by: Swathi Carias MD, [facility] ([phone]), at 09/18/2022 7:05 PM Narrative 09/18/2022 7:05 PM EDT EXAMINATION: XR CHEST ONE VIEW CLINICAL HISTORY: s/p cabg/avr TECHNIQUE: 1 view of the chest COMPARISON: Chest x-ray, September 09, 2022 FINDINGS: ET tube tip is approximately 3.1 cm above the brittny. An enteric tube extends below the diaphragm, tip not imaged. A right IJ approach pulmonary artery catheter has tip in the main pulmonary artery. 2 inferior approach mediastinal drains and epicardial pacer wires are in place. Low lung volumes with crowding of bronchovascular markings. Retrocardiac opacity, likely atelectasis with small bilateral effusions. No pneumothorax. 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 No acute osseous findings. Procedure Note Swathi Carias MD - 09/18/2022 EXAMINATION: XR CHEST ONE VIEW CLINICAL HISTORY: s/p cabg/avr TECHNIQUE: 1 view of the chest COMPARISON: Chest x-ray, September 09, 2022 FINDINGS: ET tube tip is approximately 3.1 cm above the brittny. An enteric tubeextends below the diaphragm, tip not imaged. A right IJ approach pulmonaryartery catheter has tip in the main pulmonary artery. 2 inferior approachmediastinal drains and epicardial pacer wires are in place. Low lung volumes with crowding of bronchovascular markings. Retrocardiac opacity, likely atelectasis with small bilateral effusions. Nopneumothorax. 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 No acute osseous findings. IMPRESSION Pulmonary vascular congestion, trace effusions and bibasilaratelectasis, compatible with expected postprocedural changes. Thank you for letting us participate in the care of this patient. If youare a health care provider and have any questions regarding this report,please contact the number below. For patients who have questions please contactthe health care advocate that requested your imaging first. Electronically signed by: Swathi Carias MD, [facility]([phone]), at 09/18/2022 7:05 PM Mono Purvis MD IMG DX ORDERABLES * EKG 12 Lead (09/18/2022 6:38 PM EDT) Ventricular rate 41 BPM MUSE SYSTEM Atrial Rate 41 BPM MUSE SYSTEM P-R Interval 248 ms MUSE SYSTEM QRS Duration 138 ms MUSE SYSTEM Q-T Interval 482 ms MUSE SYSTEM QTC Calculated (Bezet) 397 ms MUSE SYSTEM Calculated P Gill 43 degrees MUSE SYSTEM Calculated R Gill 18 degrees MUSE SYSTEM Calculated T Gill 54 degrees MUSE SYSTEM INTERPRETATION Marked sinus bradycardia with 1st degree A-V block with Premature atrial complexes Non-specific intra-ventricu lar conduction block Minimal voltage criteria for LVH, may be normal variant ( Carter product ) Abnormal ECG When compared with ECG of 02-SEP-2022 21:48, Premature atrial complexes are now Present SD interval has increased Minimal criteria for Septal infarct are no longer Present T wave inversion no longer evident in Lateral leads Confirmed by MD BRIONNA, MILTON ([id number]) on 09/19/2022 8:09:50 AM MUSE SYSTEM 09/18/2022 6:38 PM EDT 09/19/2022 8:09 AM EDT Mono Purvis MD ECG ORDERABLES MUSE SYSTEM * (ABNORMAL) Coox2 (09/18/2022 6:26 PM EDT) Pathologist [facility] pO2, Coox 57 mmHg [facility] Hgb Blood Gas 11.9(L) 13.7 - 16.5 g/dL [facility] Oxyhemoglobin, Coox 86.3 % [facility] Carboxyhemoglo bin, Coox 0.3 % [facility] Comment: Nonsmokers: 0.5-1.5% COHB Smokers: Variable, but usually less than 10% Toxic: 20-30% COHB Lethal: Greater than 60% COHB Methemoglobin, Coox 0.8 <=1.5 % [facility] Source Coox Mixed Venous [facility] Blood 09/18/2022 6:26 PM EDT 09/18/2022 6:26 PM EDT Mono Purvis MD POINT OF CARE TEST ORDERABLES Performing Organization Address City/State/[facility] Co de Phone Number [facility] [address] * (ABNORMAL) BLOOD GAS 2 ARTERIAL (09/18/2022 6:23 PM EDT) pH, Arterial 7.31(L) 7.35 - 7.45 [facility] PCO2, Arterial 49(H) 35 - 45 mmHg [facility] PO2, Arterial 386(H) 85 - 104 mmHg [facility] Bicarbonate, Arterial 24.2 20.0 - 26.0 mmol/L [facility] Base Excess, Arterial -2.1 -3.0 - 3.0 mmol/L [facility] Hgb Blood Gas 11.9(L) 13.7 - 16.5 g/dL [facility] Oxyhemoglobin, Arterial 97.9(H) 94.0 - 97.0 % [facility] Carboxyhemoglob in, Arterial 0.3 % [facility] Comment: Nonsmokers: 0.5-1.5% COHB Smokers: Variable, but usually less than 10% Toxic: 20-30% COHB Lethal: Greater than 60% COHB Methemoglobin, Arterial 0.7 <=1.5 % [facility] Na Whole Blood 139 135 - 145 mmol/L [facility] K Whole Blood 4.3 3.5 - 5.0 mmol/L [facility] Comment: Please note: Patients with WBC >100,000 may have falsely elevated Potassium levels. Contact the Clinical Chemistry Laboratory if there are any questions. ICa Whole Blood 1.27 1.15 - 1.33 mmol/L [facility] Comment: Note: ??Total bilirubin higher than 20 mg/dL may lead to falsely low ionized calcium. CL Whole Blood 106 98 - 107 mmol/L [facility] Gluc Whole Bld 175 65 - 199 mg/dL [facility] Comment:Diabetes: >=200 mg/d L plus symptoms. Lactate WB 2.4(H) 0.5 - 2.2 mmol/L [facility] FIO2 Art 100 % [facility] PF Ratio Art 386 [facility] Blood 09/18/2022 6:23 PM EDT 09/18/2022 6:23 PM EDT Mono Purvis MD POINT OF CARE TEST ORDERABLES [facility] [address] * (ABNORMAL) BLOOD GAS 2 ARTERIAL (09/18/2022 5:19 PM EDT) pH, Arterial 7.28(Crit ical) 7.35 - 7.45 [facility] Comment: Critical notified to Madelaine Boogie by instrumentation instructor immediately following run time. PCO2, Arterial 46(H) 35 - 45 mmHg [facility] PO2, Arterial 256(H) 85 - 104 mmHg [facility] Bicarbonate, Arterial 21.4 20.0 - 26.0 mmol/L [facility] Base Excess, Arterial -5.3(L) -3.0 - 3.0 mmol/L [facility] Hgb Blood Gas 13.0(L) 13.7 - 16.5 g/dL [facility] Oxyhemoglobin, Arterial 98.8(H) 94.0 - 97.0 % [facility] Carboxyhemoglobi n, Arterial 0.3 % [facility] Comment: Nonsmokers: 0.5-1.5% COHB Smokers: Variable, but usually less than 10% Toxic: 20-30% COHB Lethal: Greater than 60% COHB Methemoglobin, Arterial 0.3 <=1.5 % [facility] Na Whole Blood 138 135 - 145 mmol/L [facility] K Whole Blood 4.6 3.5 - 5.0 mmol/L [facility] Comment: Please note: Patients with WBC >100,000 may have falsely elevated Potassium levels. Contact the Clinical Chemistry Laboratory if there are any questions. ICa Whole Blood 1.05(L) 1.15 - 1.33 mmol/L [facility] Comment: Note: ??Total bilirubin higher than 20 mg/dL may lead to falsely low ionized calcium. CL Whole Blood 106 98 - 107 mmol/L [facility] Gluc Whole Bld 172 65 - 199 mg/dL [facility] Comment:Diabetes: >=200 mg/d L plus symptoms. Lactate WB 1.8 0.5 - 2.2 mmol/L [facility] Blood 09/18/2022 5:19 PM EDT 09/18/2022 5:19 PM EDT Mono Purvis MD POINT OF CARE TEST ORDERABLES Performing Organization Address [facility] [place] [address] * Prepare Coag Factors (Non-Hemophilia) (09/18/2022 5:05 PM EDT) Dispensed? Yes [facility] Blood 09/18/2022 5:05 PM EDT 09/18/2022 5:17 PM EDT Madelaine Boogie MD BLOOD BANK PRODUCT O RDERABLES Performing Organization Address [facility] Co de Phone Number [facility] [place] [address] * Prepare thawed plasma (09/18/2022 4:50 PM EDT) Dispensed? Yes [facility] Blood 09/18/2022 4:50 PM EDT 09/18/2022 4:48 PM EDT Mono Purvis MD BLOOD BANK PRODUCT ORDERABLES Performing Organization Address [facility] Co de Phone Number [facility] [address] * (ABNORMAL) Thrombin time (09/18/2022 4:05 PM EDT) Thrombin Time 47(H) 10 - 17 sec [facility] Comment: OR Result called by ?? FINDTM OR Results read back by: ? Ca Schultz A prolongation in the thrombin time (>20 seconds) may be indicative of hypofibrinogenemia or dysfibrinogenemia. The thrombin time will be prolonged, often markedly so, by the presence of heparin or direct thrombin inhibitors (argatroban, bivalirudin, dabigatran) in the specimen. Blood 09/18/2022 4:05 PM EDT 09/18/2022 4:15 PM EDT Narrative Resulting Agency Comment Spec In Lab Madelaine Boogie MD HEMATOLOGY ORDERABLE S Performing Organization Address [facility] Co de Phone Number [facility] [address] * Fibrinogen (09/18/2022 4:05 PM EDT) Fibrinogen 283 200 - 393 mg/dL [facility] Comment: OR Result called by ?? FINDTM OR Results read back by: ? Ca Schultz A fibrinogen level >100 mg/dL is adequate for hemostasis in most patients without underlying bleeding disorders. Blood 09/18/2022 4:05 PM EDT 09/18/2022 4:15 PM EDT Narrative Resulting Agency Comment Spec In Lab Madelaine Boogie MD HEMATOLOGY ORDERABLE S Performing Organization Address [facility] Phone Number [facility] [address] * (ABNORMAL) APTT (09/18/2022 4:05 PM EDT) Partial Thromboplastin Time 51(H) 25 - 37 sec [facility] Comment: OR Result called by ?? FINDTM OR Results read back by: ? Ca Schultz The PTT is NOT appropriate for heparin monitoring. Use the Anti-Xa level for heparin monitoring (HEP UFH) or LMWH monitoring (HEP LMW). A PTT less than 37 seconds generally indicates adequate hemostasis. Blood 09/18/2022 4:05 PM EDT 09/18/2022 4:15 PM EDT Narrative Resulting Agency Comment Spec In Lab Madelaine Boogie MD HEMATOLOGY ORDERABLE S Performing Organization Address [facility] Co de Phone Number [facility] [address] * (ABNORMAL) Prothrombin Time (09/18/2022 4:05 PM EDT) Prothrombin Time 13.6(H) 9.4 - 12.5 sec [facility] Comment:OR Result called by FINDTM OR Results read back by: Ca Schultz International Normalization Ratio 1.2 [facility] Comment: OR Result called by ?? FINDMIKE OR Results read back by: ? Ca Schultz An INR <2.0 indicates adequate procoagulant activity for hemostasis in most patients without underlying bleeding disorders, though the INR may not adequately reflect hemostatic capacity in patients with liver disease and synthetic impairment. The recommended target INR range for therapeutic anticoagulation is 2.0 ? 3.0 for most applications, though lower and higher ranges may be appropriate depending on clinical circumstances. Blood 09/18/2022 4:05 PM EDT 09/18/2022 4:15 PM EDT Narrative Resulting Agency Comment Spec In Lab Madelaine Boogie MD HEMATOLOGY ORDERABLE S [facility] [address] * (ABNORMAL) Hemogram (09/18/2022 4:05 PM EDT) White Blood Cell 12.2(H) 4.0 - 9.5 x10(3)/mc L [facility] Red Blood Cell 3.84(L) 4.58 - 5.54 x10(6)/mc L [facility] Hemoglobin 11.9(L) 13.7 - 16.5 g/dL [facility] Hematocrit 35.4(L) 40.5 - 48.5 % [facility] Comment: This result has been called to CA SCHULTZ by David Lovelace on 09 18 2022 at 1621, and has been read back. Mean Cell Volume 92.2 82.9 - 93.1 fL [facility] Mean Cell Hemoglobin 31.0 27.5 - 32.1 pg [facility] Mean Cell Hemoglobin Concentration 33.6 32.0 - 35.7 g/dL [facility] Platelet 166 145 - 357 x10(3)/mc L [facility] RDW Standard Deviation 41.4 36.0 - 45.0 fL [facility] RDW coefficient of variation 12.2 11.4 - 13.8 % [facility] Mean Platelet Volume 10.0 7.6 - 12.9 fL [facility] NRBC% auto 0.0 % [facility] NRBC Absolute 0.000 0.000 - 0.000 x10(3)/mc L [facility] Blood 09/18/2022 4:05 PM EDT 09/18/2022 4:15 PM EDT Narrative Resulting Agency Comment Spec In Lab Madelaine Boogie MD HEMATOLOGY ORDERABLE S [facility] [address] * (ABNORMAL) BLOOD GAS 2 ARTERIAL (09/18/2022 3:35 PM EDT) pH, Arterial 7.38 7.35 - 7.45 [facility] PCO2, Arterial 36 35 - 45 mmHg [facility] PO2, Arterial 234(H) 85 - 104 mmHg [facility] Bicarbonate, Arterial 21.2 20.0 - 26.0 mmol/L [facility] Base Excess, Arterial -3.8(L) -3.0 - 3.0 mmol/L [facility] Hgb Blood Gas 12.5(L) 13.7 - 16.5 g/dL [facility] Oxyhemoglobin, Arterial 98.9(H) 94.0 - 97.0 % [facility] Carboxyhemoglob in, Arterial 0.1 % [facility] Comment: Nonsmokers: 0.5-1.5% COHB Smokers: Variable, but usually less than 10% Toxic: 20-30% COHB Lethal: Greater than 60% COHB Methemoglobin, Arterial 0.3 <=1.5 % [facility] Na Whole Blood 135 135 - 145 mmol/L [facility] K Whole Blood 5.4(H) 3.5 - 5.0 mmol/L [facility] Comment: Please note: Patients with WBC >100,000 may have falsely elevated Potassium levels. Contact the Clinical Chemistry Laboratory if there are any questions. ICa Whole Blood 1.02(L) 1.15 - 1.33 mmol/L [facility] Comment: Note: ??Total bilirubin higher than 20 mg/dL may lead to falsely low ionized calcium. CL Whole Blood 106 98 - 107 mmol/L [facility] Gluc Whole Bld 112 65 - 199 mg/dL [facility] Comment:Diabetes: >=200 mg/d L plus symptoms. Lactate WB 1.6 0.5 - 2.2 mmol/L [facility] Blood 09/18/2022 3:35 PM EDT 09/18/2022 3:35 PM EDT Mono Purvis MD POINT OF CARE TEST ORDERABLES Performing Organization Address [facility] Co de Phone Number [facility] [place] [address] * Prepare Platelets, Apheresis (09/18/2022 3:05 PM EDT) Pathologist [facility] Dispensed? Yes [facility] Blood 09/18/2022 3:05 PM EDT 09/18/2022 3:05 PM EDT Mono Purvis MD BLOOD BANK PRODUCT ORDERABLES Performing Organization Address [facility] de Phone Number [facility] [address] * (ABNORMAL) Thrombin time (09/18/2022 3:00 PM EDT) Thrombin Time 37(H) 10 - 17 sec [facility] Comment: OR Result called by ?? DOMITILA OR Results read back by: ? ZACH MORALES at 2022-09-18 15:51:06 A prolongation in the thrombin time (>20 seconds) may be indicative of hypofibrinogenemia or dysfibrinogenemia. The thrombin time will be prolonged, often markedly so, by the presence of heparin or direct thrombin inhibitors (argatroban, bivalirudin, dabigatran) in the specimen. Blood 09/18/2022 3:00 PM EDT 09/18/2022 3:38 PM EDT Narrative Resulting Agency Comment Spec In Lab Madelaine Boogie MD HEMATOLOGY ORDERABLE S Performing Organization Address [facility] Co de Phone Number [facility] [address] * (ABNORMAL) Fibrinogen (09/18/2022 3:00 PM EDT) Fibrinogen 198(L) 200 - 393 mg/dL [facility] Comment: OR Result called by ?? BELAJI OR Results read back by: ? ZACH MORALES at 2022-09-18 15:51:06 A fibrinogen level >100 mg/dL is adequate for hemostasis in most patients without underlying bleeding disorders. Blood 09/18/2022 3:00 PM EDT 09/18/2022 3:38 PM EDT Narrative Resulting Agency Comment Spec In Lab Madelaine Boogie MD HEMATOLOGY ORDERABLE S Performing Organization Address [facility] Co de Phone Number [facility] [address] * (ABNORMAL) APTT (09/18/2022 3:00 PM EDT) Partial Thromboplastin Time 49(H) 25 - 37 sec [facility] Comment: OR Result called by ?? DARLYNAZEV OR Results read back by: ? ZACH MORALES at 2022-09-18 15:51:06 The PTT is NOT appropriate for heparin monitoring. Use the Anti-Xa level for heparin monitoring (HEP UFH) or LMWH monitoring (HEP LMW). A PTT less than 37 seconds generally indicates adequate hemostasis. Blood 09/18/2022 3:00 PM EDT 09/18/2022 3:38 PM EDT Narrative Resulting Agency Comment Spec In Lab Madelaine Boogie MD HEMATOLOGY ORDERABLE S Performing Organization Address City/[facility]/ZIP Co de Phone Number [facility] [address] * (ABNORMAL) Prothrombin Time (09/18/2022 3:00 PM EDT) Prothrombin Time 15.7(H) 9.4 - 12.5 sec [facility] Comment: OR Result called by ?? BELAJI OR Results read back by: ? ZACH MORALES at 2022-09-18 15:51:06 International Normalization Ratio 1.4 [facility] Comment: OR Result called by ?? DOMITILA OR Results read back by: ? ZACH MORALES at 2022-09-18 15:51:06 An INR <2.0 indicates adequate procoagulant activity for hemostasis in most patients without underlying bleeding disorders, though the INR may not adequately reflect hemostatic capacity in patients with liver disease and synthetic impairment. The recommended target INR range for therapeutic anticoagulation is 2.0 ? 3.0 for most applications, though lower and higher ranges may be appropriate depending on clinical circumstances. Blood 09/18/2022 3:00 PM EDT 09/18/2022 3:38 PM EDT Narrative Resulting Agency Comment Spec In Lab Madelaine Boogie MD HEMATOLOGY ORDERABLE S [facility] [address] * (ABNORMAL) Hemogram (09/18/2022 3:00 PM EDT) White Blood Cell 11.8(H) 4.0 - 9.5 x10(3)/mc L [facility] Red Blood Cell 3.92(L) 4.58 - 5.54 x10(6)/mc L [facility] Hemoglobin 12.1(L) 13.7 - 16.5 g/dL [facility] Hematocrit 35.9(L) 40.5 - 48.5 % [facility] Comment: This result has been called to MADELAINE BOOGIE by Parminder Boles on 09 18 2022 at 1551, and has been read back. Mean Cell Volume 91.6 82.9 - 93.1 fL [facility] Mean Cell Hemoglobin 30.9 27.5 - 32.1 pg [facility] Mean Cell Hemoglobin Concentration 33.7 32.0 - 35.7 g/dL [facility] Platelet 160 145 - 357 x10(3)/mc L [facility] RDW Standard Deviation 41.0 36.0 - 45.0 fL [facility] RDW coefficient of variation 12.2 11.4 - 13.8 % [facility] Mean Platelet Volume 10.1 7.6 - 12.9 fL [facility] NRBC% auto 0.0 % [facility] NRBC Absolute 0.000 0.000 - 0.000 x10(3)/mc L [facility] Blood 09/18/2022 3:00 PM EDT 09/18/2022 3:38 PM EDT Narrative Resulting Agency Comment Spec In Lab Madelaine Boogie MD HEMATOLOGY ORDERABLE S Performing Organization Address [facility] Co de Phone Number [facility] [address] * Prepare cryoprecipitate (09/18/2022 2:55 PM EDT) Dispensed? Yes [facility] Blood 09/18/2022 2:55 PM EDT 09/18/2022 2:53 PM EDT Mono Purvis MD BLOOD BANK PRODUCT ORDERABLES Performing Organization Address [facility] de Phone Number [facility] [address] * Platelet count (09/18/2022 2:53 PM EDT) Platelet 164 145 - 357 x10(3)/mc L [facility] Immature Plt % 3.8 0.0 - 7.4 % [facility] Comment: Limitation of the Immature Platelet Fraction (IPF)-May be less reliable when the platelet count is less than 01u196/uL due to statistical imprecision. The IPF value provides an assessment of the Bone Marrow production status. ??It is useful in differentiating Thrombocytopenia caused by platelet destruction/consumption versus decreased production. It also helps to determine the imminent release of platelets and can be therefore a helpful parameter in Chemotherapy and Bone marrow transplant patients. ELEVATED IPF value: ?? When the bone marrow is in a state of over production such as when increased destruction and consumption are the underlying issue. ?? When the marrow is recovering post chemotherapy or bone marrow transplant. LOW to NORMAL IPF value: ?? When the bone marrow in not responding and is in a decreased state of production. References: [employer] The Clinical Value of the Immature Platelet Fraction (IPF) in Cell Recovery Document Number [id number] 10/2010 [employer] The Role of the Immature Platelet Fraction (IPF) in the Differential Diagnosis of Thrombocytopenia, Document [id number] V009/19/13 Blood 09/18/2022 2:53 PM EDT 09/18/2022 2:58 PM EDT Narrative Resulting Agency Comment Spec In Lab Mono Purvis MD HEMATOLOGY ORDERABL ES Performing Organization Address [facility] Co de Phone Number [facility] [place] [address] * (ABNORMAL) Hemoglobin and Hematocrit, blood (09/18/2022 2:53 PM EDT) Hemoglobin 11.8(L) 13.7 - 16.5 g/dL [facility] Hematocrit 35.4(L) 40.5 - 48.5 % [facility] Comment: This result has been called to ZACH MORALES by Parminder Boles on 09 18 2022 at 1504, and has been read back. Blood 09/18/2022 2:53 PM EDT 09/18/2022 2:58 PM EDT Narrative Resulting Agency Comment Spec In Lab Mono Purvis MD HEMATOLOGY ORDERABL ES Performing Organization Address [facility] Co de Phone Number [facility] [address] * (ABNORMAL) Fibrinogen (09/18/2022 2:53 PM EDT) Fibrinogen 190(L) 200 - 393 mg/dL [facility] Comment: OR Result called by ?Kandi RAMESH OR Results read back by: ? zach morales at 2022-09-18 15:09:05 A fibrinogen level >100 mg/dL is adequate for hemostasis in most patients without underlying bleeding disorders. Blood 09/18/2022 2:53 PM EDT 09/18/2022 2:58 PM EDT Narrative Resulting Agency Comment Spec In Lab Mono Purvis MD HEMATOLOGY ORDERABL ES [facility] [address] * (ABNORMAL) BLOOD GAS 2 ARTERIAL (09/18/2022 2:42 PM EDT) pH, Arterial 7.38 7.35 - 7.45 [facility] PCO2, Arterial 41 35 - 45 mmHg [facility] PO2, Arterial 462(H) 85 - 104 mmHg [facility] Bicarbonate, Arterial 23.9 20.0 - 26.0 mmol/L [facility] Base Excess, Arterial -1.1 -3.0 - 3.0 mmol/L [facility] Hgb Blood Gas 12.7(L) 13.7 - 16.5 g/dL [facility] Oxyhemoglobin, Arterial 99.0(H) 94.0 - 97.0 % [facility] Carboxyhemoglob in, Arterial 0.3 % [facility] Comment: Nonsmokers: 0.5-1.5% COHB Smokers: Variable, but usually less than 10% Toxic: 20-30% COHB Lethal: Greater than 60% COHB Methemoglobin, Arterial 0.3 <=1.5 % [facility] Na Whole Blood 134(L) 135 - 145 mmol/L [facility] K Whole Blood 5.4(H) 3.5 - 5.0 mmol/L [facility] Comment: Please note: Patients with WBC >100,000 may have falsely elevated Potassium levels. Contact the Clinical Chemistry Laboratory if there are any questions. ICa Whole Blood 1.07(L) 1.15 - 1.33 mmol/L [facility] Comment: Note: ??Total bilirubin higher than 20 mg/dL may lead to falsely low ionized calcium. CL Whole Blood 103 98 - 107 mmol/L [facility] Gluc Whole Bld 118 65 - 199 mg/dL [facility] Comment:Diabetes: >=200 mg/d L plus symptoms. Lactate WB 1.6 0.5 - 2.2 mmol/L [facility] Blood 09/18/2022 2:42 PM EDT 09/18/2022 2:42 PM EDT Mono Purvis MD POINT OF CARE TEST ORDERABLES [facility] [address] * (ABNORMAL) BLOOD GAS 2 ARTERIAL (09/18/2022 2:12 PM EDT) pH, Arterial 7.37 7.35 - 7.45 [facility] PCO2, Arterial 42 35 - 45 mmHg [facility] PO2, Arterial 488(H) 85 - 104 mmHg [facility] Bicarbonate, Arterial 24.0 20.0 - 26.0 mmol/L [facility] Base Excess, Arterial -1.3 -3.0 - 3.0 mmol/L [facility] Hgb Blood Gas 12.1(L) 13.7 - 16.5 g/dL [facility] Oxyhemoglobin, Arterial 98.9(H) 94.0 - 97.0 % [facility] Carboxyhemoglob in, Arterial 0.4 % [facility] Comment: Nonsmokers: 0.5-1.5% COHB Smokers: Variable, but usually less than 10% Toxic: 20-30% COHB Lethal: Greater than 60% COHB Methemoglobin, Arterial 0.3 <=1.5 % [facility] Na Whole Blood 134(L) 135 - 145 mmol/L [facility] K Whole Blood 5.0 3.5 - 5.0 mmol/L [facility] Comment: Please note: Patients with WBC >100,000 may have falsely elevated Potassium levels. Contact the Clinical Chemistry Laboratory if there are any questions. ICa Whole Blood 1.05(L) 1.15 - 1.33 mmol/L [facility] Comment: Note: ??Total bilirubin higher than 20 mg/dL may lead to falsely low ionized calcium. CL Whole Blood 102 98 - 107 mmol/L [facility] Gluc Whole Bld 100 65 - 199 mg/dL [facility] Comment:Diabetes: >=200 mg/d L plus symptoms. Lactate WB 1.4 0.5 - 2.2 mmol/L [facility] Blood 09/18/2022 2:12 PM EDT 09/18/2022 2:12 PM EDT Mono Purvis MD POINT OF CARE TEST ORDERABLES Performing Organization Address [facility] Co de Phone Number [facility] [address] * Specimen to Pathology (09/18/2022 1:58 PM EDT) AP Specimen 09/18/2022 1:58 PM EDT 09/18/2022 1:58 PM EDT Narrative [facility] - 09/18/2022 1:58 PM EDT Specimen requisition ordered. ??Separate Pathology report to follow Mono Purvis MD PATHOLOGY/CYTOLOGY ORDERABLES Performing Organization Address [facility] [place] [address] * Specimen to Pathology (09/18/2022 1:58 PM EDT) AP Specimen 09/18/2022 1:58 PM EDT 09/18/2022 1:58 PM EDT Narrative [facility] - 09/18/2022 1:58 PM EDT Specimen requisition ordered. ??Separate Pathology report to follow Mono Purvis MD PATHOLOGY/CYTOLOGY ORDERABLES Performing Organization Address [facility] [place] [address] * Surgical Pathology Report (09/18/2022 1:56 PM EDT) Final Diagnosis [id number] ? Location: CVCC; CV29; A The signing pathologist has (i) examined the relevant preparation(s) for the specimen(s) and (ii) rendered or confirmed the diagnosis(es). . ?Surgical Pathology DIAGNOSIS A - ??Aortic valve leaflets, excision: Valve leaflets with myxoid degeneration, nodular fibrosis and dystrophic calcifications. B - Ascending aorta, excision - ??Valve leaflets with myxoid degeneration, nodular fibrosis and dystrophic calcifications. - Aorta wall with myxoid change and atheromatous plaque Electronically signed by: ?Juanito MUNOZ, Renetta Bravo Verified: ??09/23/2022 10:18 ??Pathologist Performed at: ??-[facility], [place] [address] Studio Operator: Jay Bryson MD, FCAP, ??CLIA Certificate: [id number] SPECIMEN(S) SUBMITTED A - Aortic valve, excision (Multiple) B - Ascending aorta, excision (Multiple) CLINICAL INFORMATION Ascending aortic root aneurysm SPECIMEN PROCESSING A - Labeled/Fixative: Aortic valve, fresh. Quantity/Size: Fragments, 2.7 x 2.5 x 0.5 cm. Tissue Description: Aggregate of markedly fragmented pink-white fibromembranous tissues and calcific debris. No intact cusps are identified. Sections/Processin g: Blocks submitted for decalcification: A1. Enrobing Machine Feeder sections in 1 cassette labeled A1. B - Labeled/Fixative: Ascending aorta, fresh. Quantity/Size: Fragments, 7.0 x 5.3 x 2.0 cm. Tissue Description: Pliable yellow vascular tissues and 2 valve cusps measuring 3.5 x 1.4 x 0.4 cm and 5.0 x 2.5 x 1.2 cm. Both valve cusps show extensive nodular calcifications. Sections/Processin g: Blocks submitted for decalcification: B2. Enrobing Machine Feeder sections in 2 cassettes as follows: ?B1: ??Vascular tissue ?B2: ??Valve cusps ??ajw 09/23/2022 10:18 AM EDT [facility] AORTIC STRUCTURE / Unknown 09/18/2022 1:56 PM EDT 09/18/2022 1:56 PM EDT AORTIC STRUCTURE / Unknown 09/18/2022 1:56 PM EDT 09/18/2022 1:56 PM EDT Mono Purvis MD PATHOLOGY/CYTOLOGY ORDERABLES [facility] [place] [address] [facility] [place] [address] * (ABNORMAL) BLOOD GAS 2 ARTERIAL (09/18/2022 1:47 PM EDT) pH, Arterial 7.33(L) 7.35 - 7.45 [facility] PCO2, Arterial 43 35 - 45 mmHg [facility] PO2, Arterial 568(H) 85 - 104 mmHg [facility] Bicarbonate, Arterial 22.3 20.0 - 26.0 mmol/L [facility] Base Excess, Arterial -3.6(L) -3.0 - 3.0 mmol/L [facility] Hgb Blood Gas 12.3(L) 13.7 - 16.5 g/dL [facility] Oxyhemoglobin, Arterial 98.8(H) 94.0 - 97.0 % [facility] Carboxyhemoglob in, Arterial 0.5 % [facility] Comment: Nonsmokers: 0.5-1.5% COHB Smokers: Variable, but usually less than 10% Toxic: 20-30% COHB Lethal: Greater than 60% COHB Methemoglobin, Arterial 0.3 <=1.5 % [facility] Na Whole Blood 132(L) 135 - 145 mmol/L [facility] K Whole Blood 4.8 3.5 - 5.0 mmol/L [facility] Comment: Please note: Patients with WBC >100,000 may have falsely elevated Potassium levels. Contact the Clinical Chemistry Laboratory if there are any questions. ICa Whole Blood 1.01(L) 1.15 - 1.33 mmol/L [facility] Comment: Note: ??Total bilirubin higher than 20 mg/dL may lead to falsely low ionized calcium. CL Whole Blood 103 98 - 107 mmol/L [facility] Gluc Whole Bld 94 65 - 199 mg/dL [facility] Comment:Diabetes: >=200 mg/d L plus symptoms. Lactate WB 1.3 0.5 - 2.2 mmol/L [facility] Blood 09/18/2022 1:47 PM EDT 09/18/2022 1:47 PM EDT Mono Purvis MD POINT OF CARE TEST ORDERABLES Performing Organization Address [facility] Co de Phone Number [facility] [address] * (ABNORMAL) BLOOD GAS 2 VENOUS (09/18/2022 1:47 PM EDT) pH, Venous 7.31(L) 7.32 - 7.42 [facility] PCO2, Venous 48 41 - 51 mmHg [facility] PO2, Venous 52(H) 25 - 40 mmHg [facility] Bicarbonate, Venous 23.4 mmol/L [facility] Base Excess, Venous -2.9 mmol/L [facility] Hgb Blood Gas 12.5(L) 13.7 - 16.5 g/dL [facility] Oxyhemoglobin, Venous 84.8 % [facility] Carboxyhemoglob in, Venous 0.5 % [facility] Comment: Nonsmokers: 0.5-1.5% COHB Smokers: Variable, but usually less than 10% Toxic: 20-30% COHB Lethal: Greater than 60% COHB Methemoglobin, Venous 0.3 <=1.5 % [facility] Na Whole Blood 137 135 - 145 mmol/L [facility] K Whole Blood 4.3 3.5 - 5.0 mmol/L [facility] Comment: Please note: Patients with WBC >100,000 may have falsely elevated Potassium levels. Contact the Clinical Chemistry Laboratory if there are any questions. ICa Whole Blood 1.00(L) 1.15 - 1.33 mmol/L [facility] Comment: Note: ??Total bilirubin higher than 20 mg/dL may lead to falsely low ionized calcium. CL Whole Blood 105 98 - 107 mmol/L [facility] Gluc Whole Bld 93 65 - 199 mg/dL [facility] Comment:Diabetes: >=200 mg/d L plus symptoms Lactate WB 1.1 0.5 - 2.2 mmol/L [facility] Blood Gas Source Venous [facility] Blood 09/18/2022 1:47 PM EDT 09/18/2022 1:47 PM EDT Mono Purvis MD POINT OF CARE TEST ORDERABLES Performing Organization Address [facility] Co de Phone Number [facility] [address] * (ABNORMAL) BLOOD GAS 2 ARTERIAL (09/18/2022 12:42 PM EDT) pH, Arterial 7.38 7.35 - 7.45 [facility] PCO2, Arterial 43 35 - 45 mmHg [facility] PO2, Arterial 256(H) 85 - 104 mmHg [facility] Bicarbonate, Arterial 24.9 20.0 - 26.0 mmol/L [facility] Base Excess, Arterial -0.1 -3.0 - 3.0 mmol/L [facility] Hgb Blood Gas 15.4 13.7 - 16.5 g/dL [facility] Oxyhemoglobin, Arterial 98.2(H) 94.0 - 97.0 % [facility] Carboxyhemoglob in, Arterial 1.0 % [facility] Comment: Nonsmokers: 0.5-1.5% COHB Smokers: Variable, but usually less than 10% Toxic: 20-30% COHB Lethal: Greater than 60% COHB Methemoglobin, Arterial 0.3 <=1.5 % [facility] Na Whole Blood 140 135 - 145 mmol/L [facility] K Whole Blood 4.3 3.5 - 5.0 mmol/L [facility] Comment: Please note: Patients with WBC >100,000 may have falsely elevated Potassium levels. Contact the Clinical Chemistry Laboratory if there are any questions. ICa Whole Blood 1.19 1.15 - 1.33 mmol/L [facility] Comment: Note: ??Total bilirubin higher than 20 mg/dL may lead to falsely low ionized calcium. CL Whole Blood 105 98 - 107 mmol/L [facility] Gluc Whole Bld 94 65 - 199 mg/dL [facility] Comment:Diabetes: >=200 mg/d L plus symptoms. Lactate WB 1.5 0.5 - 2.2 mmol/L [facility] FIO2 Art 80 % [facility] PF Ratio Art 320 [facility] Blood 09/18/2022 12:4 2 PM EDT 09/18/2022 12:42 PM EDT Mono Purvis MD POINT OF CARE TEST ORDERABLES [facility] [address] * Transesophageal Echo/OR (09/18/2022 11:39 AM EDT) Anatomical Region Laterality Modality Cardiac Other 09/18/2022 11:3 9 AM EDT Narrative 09/18/2022 5:08 PM EDT ? Version: 1 Name: YULIANAADDIS Linsey ? Study Date: 09/18/2022, 11: 39 AM ?Patient Location: OR^OR16^A : 1960 (MM/DD/YYYY) Age: 62 Years Gender: Male ? Conclusions Intraoperative JETHRO performed to confirm and quantify cardiovascular diagnoses, assess need for additional/alternative procedures, and facilitate cannulation for cardiopulmonary bypass. Post-procedure JETHRO performed to guide separation from CPB, evaluate surgical repairs and cardiac function. JETHRO probe placed and removed atraumatically. Pre-procedure: - Estimated LVEF>55%, no regional wall motion abnormalities. - Normal RV systolic function. - Heavily calcified bicuspid aortic valve. There is decreased mobility of the leaflets with a dimensionless index of 0.22. The aortic annulus is dilated (3.7diameter) with an aortic root of 5.0cm. - Mild central MR - Mild-moderate TR, trace PI. - No clot visualized in LYNDON. No PFO on CFD. - Grade II atheromatous disease of the ascending aorta, grade III of the distal arch, and descending aorta. Post-procedure: - Estimated LVEF>55%, no regional wall motion abnormalities at the time of chest closure. - RV systolic function remains normal. A well-seated, 29mm bioprosthetic aortic valve is in the aortic position and an aortic root graft is visualized. All leaflets are mobile, no intravalve or perivalvular leak. - Mild MR, mild-moderate TR and trace PI unchanged from before. No aortic dissection post-cannulation. No pericardial effusion. Pre Procedure Findings Post Procedure Findings Reading Physician ?Madelaine Boogie MD ?? 09/18/2022, 5: 08 PM Ordering Physician: MONO PURVIS Referring Physician: ULISES SINGH Procedure Note Madelaine Boogie MD - 09/18/2022 Version: 1 Name: ADDIS BRIDGES Study Date: 09/18/2022,11: 39 AM Patient Location:OR^OR16^A : 1960 (MM/DD/YYYY) Age: 62 Years Gender: Male Conclusions Intraoperative JETHRO performed to confirm and quantify cardiovasculardiagnoses, assess need for additional/alternative procedures, and facilitatecannulation for cardiopulmonary bypass. Post-procedure JETHRO performed to guide separationfrom CPB, evaluate surgical repairs and cardiac function. JETHRO probe placed andremoved atraumatically. Pre-procedure: - Estimated LVEF>55%, no regional wall motion abnormalities. - Normal RV systolic function. - Heavily calcified bicuspid aortic valve. There is decreased mobility ofthe leaflets with a dimensionless index of 0.22. The aortic annulus isdilated (3.7diameter) with an aortic root of 5.0cm. - Mild central MR - Mild-moderate TR, trace PI. - No clot visualized in LYNDON. No PFO on CFD. - Grade II atheromatousdisease of the ascending aorta, grade III of the distal arch, and descending aorta. Post-procedure: - Estimated LVEF>55%, no regional wall motion abnormalities at the time ofchest closure. - RV systolic function remains normal. A well-seated, 29mm bioprostheticaortic valve is in the aortic position and an aortic root graft is visualized.All leaflets are mobile, no intravalve or perivalvular leak. - Mild MR, mild-moderate TR and trace PI unchanged from before. Noaortic dissection post-cannulation. No pericardial effusion. Pre Procedure Findings Post Procedure Findings Reading Physician Madelaine Boogie MD 09/18/2022, 5: 08 PM Ordering Physician: MONO PURVIS Referring Physician: ULISES SINGH Mono Purvis MD ECHO ORDERABLES * Prepare RBC (09/18/2022 11:15 AM EDT) Dispensed? Yes [facility] Blood 09/18/2022 11:1 5 AM EDT 09/18/2022 11:12 AM EDT Mono Purvis MD BLOOD BANK PRODUCT ORDERABLES [facility] [place] [address] * SCAN DOC: IMPLANTABLE DEVICES (09/18/2022 12:00 AM EDT) Narrative 09/18/2022 12:00 AM EDT Ordered by an unspecified provider. Scanning Provider MEDIA MGR SCAN EXT O RDR/RSLT * SCAN DOC: LAB (09/18/2022 12:00 AM EDT) Narrative 09/18/2022 12:00 AM EDT Ordered by an unspecified provider. Scanning Provider MEDIA MGR SCAN EXT O RDR/RSLT documented in this encounter Visit Diagnoses Diagnosis CAD (coronary artery disease)- Primary Coronary atherosclerosis of unspecified type of vessel, [place] or graft Aortic valve stenosis, etiology of cardiac valve disease unspecified S/P AVR Heart valve replaced by other means Coronary artery disease, unspecified vessel or lesion type, unspecified whether angina present, unspecified whether [place] or transplanted heart documented in this encounter Admitting Diagnoses Diagnosis CAD (coronary artery disease) Coronary atherosclerosis of unspecified type of vessel, [place] or graft documented in this encounter Administered Medications Inactive Administered Medications - up to 3 most recent administrations Medication Order MAR Action Action Date Dose Rate Site acetaminophen (Ofirmev) (1,000 mg/100 mL) infusion 1,000 mg 1,000 mg, Intravenous, at 400 mL/hr, Administer over 15 Minutes, EVERY 6 HOURS SCHEDULED, 4 doses, First dose on Chelo 09/18/22 at 1915, Last dose on Thu09/19/22 at 1200, Maximum dose of acetaminophen is 4,000 mg from all sources in 24 hours. When ordered for pain, acetaminophen should be given even when other ordered pain medications are indicated. , Routine, Is ketorolac (Toradol) IV contraindicated? Yes, Can this patient tolerate oral medications or suppositories? No Given 09/19/2022 12:13 PM EDT 1,000 mg 400 mL/hr Given 09/19/2022 5:37 AM EDT 1,000 mg 400 mL/hr Given 09/19/2022 12:02 AM EDT 1,000 mg 400 mL/hr acetaminophen (Tylenol) tablet 1,000 mg 1,000 mg, Oral, ONCE, 1 dose, On Chelo 09/18/22 at 1100, Administer with SIP of H2O only. Maximum dose of acetaminophen is 4,000 mg from all sources in 24 hours., Day of Surgery (Day of Procedure), Routine Given 09/18/2022 10:43 AM EDT 1,000 mg acetaminophen (Tylenol) tablet 1,000 mg 1,000 mg, Oral, EVERY 6 HOURS SCHEDULED, First dose on Thu09/19/22 at 1800, Until Discontinued, For pain when taking by mouth. Maximum dose of acetaminophen is 4,000 mg from all sources in 24 hours. When ordered for pain, acetaminophen should be given even when other ordered pain medications are indicated., Routine Given 09/27/2022 5:09 AM EDT 1,0 00 mg Given 09/27/2022 12:12 AM EDT 1,000 mg Given 09/26/2022 5:05 PM EDT 1,000 mg albumin (human) 5% 250 mL intravenous solution 12.5 g, Intravenous, EVERY 15 MIN PRN, 2 doses, Starting on Chelo 09/18/22 at 1822, Until Thu09/19/22 at 1259, Other, As needed for volume replacement to maintain cardiac index greater than or equal to 2.0 L/min/M2, 1 bottle (unit) = 12.5 grams / 250 mL (Total Dose = 25 grams = 2 bottles), STAT New Bag 09/18/2022 10:28 PM EDT 12.5 g albuteroL 90 mcg/actuation inhaler 6 puff 6 puff, Inhalation, EVERY 4 HOURS, First dose on Chelo 09/18/22 at 1915, Until Discontinued, While INtubated. , Routine, Is there a contraindication to the patient receiving this medication as a nebulizer? Yes Given 09/18/2022 11:15 PM EDT 6 puffs Given 09/18/2022 8:01 PM EDT 6 puffs AMIOdarone (CORDARONE) bolus from bag 150 mg 150 mg, Intravenous, Administer over 10 Minutes, ONCE, 1 dose, On 09/21/22 at 1115, Warning Vesicant/Irritant Medication , Routine Bolus from Bag 09/21/2022 11:40 AM EDT 150 mg AMIOdarone (CORDARONE) bolus from bag 150 mg 150 mg, Intravenous, Administer over 10 Minutes, ONCE, 1 dose, On 09/22/22 at 0730, Warning Vesicant/Irritant Medication , Routine Bolus from Bag 09/22/2022 8:14 AM EDT 150 mg AMIOdarone (Nexterone) (1.8 mg/mL) in dextrose (iso-osmotic) infusion 1 mg/min (33.3333 mL/hr, rounded to 33.3 mL/hr), Intravenous, CONTINUOUS, Starting on Thu09/21/22 at 1115, Until Thu09/21/22 at 1714, Rotate IV site every 12 hours to prevent phlebitis Use in-line filter. Warning Vesicant/Irritant Medication New Bag 09/21/2022 2:30 PM EDT 1 mg/min 33.3 mL/hr New Bag 09/21/2022 11:52 AM EDT 1 mg/min 33.3 mL/hr AMIOdarone (Nexterone) (1.8 mg/mL) in dextrose (iso-osmotic) infusion 0.5 mg/min (16.6667 mL/hr, rounded to 16.7 mL/hr), Intravenous, CONTINUOUS, Starting on Thu09/21/22 at 1715, Until Thu09/23/22 at 0757, After 24 hours from the start time of the AMIOdarone infusion, call MD regarding continuing infusion or changing to oral dosing. Rotate IV site every 12 hours to prevent phlebitis Use in-line filter. Warning Vesicant/Irritant Medication Rate/Dose Verify 09/23/2022 6:00 AM EDT 0.5 mg/min 16.7 mL/hr New Bag 09/23/2022 3:04 AM EDT 0.5 mg/min 16.7 mL/hr Rate/Dose Verify 09/23/2022 12:00 AM EDT 0.5 mg/min 16.7 m L/hr AMIOdarone (Pacerone) tablet 200 mg 200 mg, Oral, 2 TIMES DAILY, First dose on Thu09/23/22 at 0900, Until Discontinued, Routine Given 09/27/2022 8:58 AM EDT 200 mg Given 09/26/2022 8:48 PM EDT 200 mg Given 09/26/2022 9:40 AM EDT 200 mg aspirin chewable tablet 81 mg 81 mg, Oral, DAILY, First dose on Thu09/19/22 at 0900, Until Discontinued, Start on Post-Op Day 1 in the AM, If unable to take PO, may give SD, Routine Given 09/27/2022 8:58 AM EDT 81 mg Given 09/26/2022 9:40 AM EDT 81 mg Given 09/25/2022 10:21 AM EDT 81 mg atorvastatin (Lipitor) tablet 40 mg 40 mg, Oral, EVERY EVENING, First dose (after last modification) on Thu09/24/22 at 1700, Until Discontinued, Routine Given 09/26/2022 5:05 PM EDT 40 mg Given 09/25/2022 4:33 PM EDT 40 mg Given 09/24/2022 5:38 PM EDT 40 mg atorvastatin (Lipitor) tablet 80 mg 80 mg, Oral, EVERY EVENING, First dose on Thu09/18/22 at 1915, Until Discontinued, Routine Given 09/23/2022 4:16 PM EDT 80 mg Given 09/22/2022 5:01 PM EDT 80 mg Given 09/21/2022 5:50 PM EDT 80 mg buPROPion SR (Wellbutrin SR) tablet 150 mg 150 mg, Oral, 2 TIMES DAILY, First dose on Thu09/19/22 at 0900, Until Discontinued, DO NOT CRUSH OR OPEN, Routine Given 09/27/2022 8:58 AM EDT 150 mg Given 09/26/2022 8:49 PM EDT 150 mg Given 09/26/2022 9:41 AM EDT 150 mg chlorhexidine (Peridex) 0.12 % oral solution 15 mL 15 mL, Oral, EVERY 12 HOURS SCHEDULED (2 times per day), First dose on Chelo 09/18/22 at 2100, Until Discontinued, [place] teeth, Routine Given 09/18/2022 9:08 PM EDT 15 mLs EPINEPHrine (Adrenalin) (8 mcg/mL) in dextrose 5% 250 mL infusion 0-10 mcg/min (0-75 mL/hr), Intravenous, CONTINUOUS, Starting on Thu09/18/22 at 1915, Until Thu09/19/22 at 1259, Titrate to keep systolic blood pressure greater than 90 mmHg. Start at 1 mcg/min, adjust by 1 mcg/min every 3 minutes. Dose not to exceed 10 mcg/min. Use if PHENYLephrine or vasopressin or NORepinephrine is ineffective. Call pager # [phone] if initiated. Concentration: 8 mcg/mL. Warning Vesicant/Irritant Medication Continued Bag 09/18/2022 5:45 PM EDT 1 mcg/min 7.5 mL/hr fentaNYL (50 mcg/mL) bolus from infusion 25 mcg 25 mcg, Intravenous, EVERY 10 MIN PRN, Starting on Chelo 09/18/22 at 1822, Until Thu09/19/22 at 1259, Pain, For breakthrough pain (pain scale greater than 3), while intubated, For breakthrough pain (pain scale greater than 3), while intubated. Maximum dose 300 mcg over one hour, Routine Bolus from Infusion 09/19/2022 5:34 AM EDT 25 mcg Bolus from Infusion 09/19/2022 1:07 AM EDT 25 mcg Bolus from Infusion 09/19/2022 12:16 AM EDT 25 mcg fentaNYL (50 mcg/mL) bolus from infusion 25 mcg 25 mcg, Intravenous, EVERY 1 HOUR PRN, Starting on Chelo 09/18/22 at 1822, Until Thu09/19/22 at 1259, Pain, For breakthrough pain (pain scale greater than 3), while extubated, For breakthrough pain (pain scale greater than 3), while extubated. Maximum dose 300 mcg over one hour, Routine Bolus from Infusion 09/19/2022 4:05 AM EDT 25 mcg fentaNYL (PF) (50 mcg/mL) infusion syringe 50 mL 0-100 mcg/hr (0-2 mL/hr), Intravenous, CONTINUOUS, Starting on Chelo 09/18/22 at 1915, Until Thu09/19/22 at 1259, Titrate to patient comfort, pain scale 1-3. Start at 25 mcg/hr, adjust by 25 mcg/hr every 15 minutes. Dose not to exceed 100 mcg/hour., Routine Rate/Dose Change 09/19/2022 6:08 AM EDT 25 mcg/hr 0.5 mL/hr Rate/Dose Verify 09/19/2022 6:00 AM EDT 50 mcg/hr 1 mL/hr Rate/Dose Change 09/19/2022 5:35 AM EDT 50 mcg/hr 1 mL/hr furosemide (Lasix) (10 mg/mL) injection 20 mg 20 mg, Intravenous, 2 TIMES DAILY, First dose on Thu09/19/22 at 0945, Until Discontinued Given 09/27/2022 8:59 AM EDT 2 0 mg Given 09/26/2022 5:05 PM EDT 20 mg Given 09/26/2022 9:41 AM EDT 20 mg furosemide (Lasix) (10 mg/mL) injection 40 mg 40 mg, Intravenous, ONCE, 1 dose, On Thu09/22/22 at 1530 Given 09/22/2022 3:19 PM EDT 40 mg guaiFENesin ER (Mucinex) tablet 600 mg 600 mg, Oral, 2 TIMES DAILY, First dose on Thu09/22/22 at 0800, Until Discontinued, DO NOT CRUSH OR OPEN, Routine Given 09/26/2022 8:49 PM EDT 600 mg Given 09/26/2022 9:41 AM EDT 600 mg Given 09/25/2022 8:17 PM EDT 600 mg hydrALAZINE (Apresoline) (20 mg/mL) injection 10 mg 10 mg, Intravenous, EVERY 4 HOURS PRN, Starting on Chelo 09/18/22 at 2043, Until Thu09/19/22 at 0100, High Blood Pressure, SBP>120mmHg Given 09/19/2022 12:16 AM EDT 10 mg hydrALAZINE (Apresoline) (20 mg/mL) injection 10 mg 10 mg, Intravenous, EVERY 2 HOURS PRN, Starting on Thu09/19/22 at 0100, Until 09/27/22 at 1529, High Blood Pressure, SBP>120mmHg Given 09/24/2022 1:46 PM EDT 10 mg Given 09/23/2022 6:29 PM EDT 10 mg Given 09/19/2022 9:55 AM EDT 10 mg ipratropium-albuteroL (Duoneb) 0.5 mg-3 mg(2.5 mg base)/3 mL nebulizer solution 3 mL 3 mL, Nebulization, EVERY 4 HOURS, First dose on Thu09/22/22 at 0800, Until Discontinued, Routine Given 09/27/2022 8:57 AM EDT 3 mLs Given 09/27/2022 4:54 AM EDT 3 mLs Given 09/27/2022 12:12 AM EDT 3 mLs lidocaine (Lidoderm) 5% patch 1 patch 1 patch, Transdermal, Administer over 12 Hours, EVERY 24 HOURS, First dose on Thu09/22/22 at 0800, Until Discontinued, Apply patch(es) for 12 hours, and then remove for 12 hours, Routine Patch Applied 09/26/2022 8:00 AM EDT 1 patch 07- Back Lower (Left) Patch Applied 09/25/2022 8:49 AM EDT 1 patch 03- Shoulder (Left) Patch Applied 09/24/2022 7:53 AM EDT 1 patch 10- Arm Upper (Right) LORazepam (Ativan) tablet 0.5 mg 0.5 mg, Oral, EVERY 6 HOURS PRN, Starting on Thu09/22/22 at 1205, Until 09/27/22 at 1529, Anxiety, Routine Given 09/23/2022 2:10 PM EDT 0.5 mg Given 09/22/2022 10:44 PM EDT 0.5 mg Given 09/22/2022 12:53 PM EDT 0.5 mg losartan (Cozaar) tablet 25 mg 25 mg, Oral, DAILY, First dose on Thu09/19/22 at 1045, Until Discontinued, Routine Given 09/21/2022 8:58 AM EDT 25 mg Given 09/20/2022 8:26 AM EDT 25 mg Given 09/19/2022 10:41 AM EDT 25 mg losartan (Cozaar) tablet 25 mg 25 mg, Oral, DAILY, First dose on Chelo 09/25/22 at 0915, Until Discontinued, Routine Given 09/27/2022 8:58 AM EDT 25 mg Given 09/26/2022 9:41 AM EDT 25 mg Given 09/25/2022 9:15 AM EDT 25 mg magnesium sulfate 2 g in sterile water 50 mL infusion 2 g, Intravenous, ONCE, 1 dose, On 09/22/22 at 1530, Administer over 120 Minutes New Bag 09/22/2022 3:19 PM EDT 2 g 25 mL/hr melatonin tablet 6 mg 6 mg, Oral, NIGHTLY PRN, Starting on 09/21/22 at 2307, Until 09/27/22 at 1529, sleep, Routine Given 09/26/2022 8:49 PM EDT 6 mg Given 09/25/2022 8:17 PM EDT 6 mg Given 09/25/2022 1:33 AM EDT 6 mg metOLazone (Zaroxolyn) tablet 5 mg 5 mg, Oral, ONCE, 1 dose, On Thu09/23/22 at 1000, Routine Given 09/23/2022 9:13 AM EDT 5 mg metoprolol tartrate (Lopressor) tablet 12.5 mg 12.5 mg, Oral, EVERY 12 HOURS SCHEDULED (2 times per day), First dose on 09/20/22 at 1000, Until Discontinued, Hold for HR less than 60 or SBP less than 90, Routine Given 09/21/2022 8:01 PM EDT 12.5 mg Given 09/21/2022 8:58 AM EDT 12.5 mg Given 09/20/2022 8:13 PM EDT 12.5 mg metoprolol tartrate (Lopressor) tablet 12.5 mg 12.5 mg, Oral, EVERY 8 HOURS SCHEDULED, First dose (after last modification) on Thu09/22/22 at 0900, Until Discontinued, Hold for HR less than 60 or SBP less than 90, Routine Given 09/23/2022 9:23 PM EDT 12.5 mg Given 09/23/2022 2:08 PM EDT 12.5 mg Given 09/23/2022 5:31 AM EDT 12.5 mg metoproloL tartrate (Lopressor) tablet 25 mg 25 mg, Oral, EVERY 12 HOURS SCHEDULED (2 times per day), First dose (after last modification) on Thu09/24/22 at 0715, Until Discontinued, Hold for HR less than 60 or SBP less than 90, Routine Given 09/27/2022 8:58 AM EDT 25 mg Given 09/26/2022 8:49 PM EDT 25 mg Given 09/26/2022 9:41 AM EDT 25 mg nicotine (Nicoderm CQ) 14 mg/24 hr patch 14 mg 14 mg (1 patch), Transdermal, Administer over 24 Hours, DAILY, First dose on Thu09/23/22 at 1545, Until Discontinued, Apply new patch to clean, dry, hair-free skin on the upper body or upper outer arm; each patch should be applied to a different site. , Routine Patch Applied 09/27/2022 8:58 AM EDT 14 mg 04- Shoulder (Right) Patch Applied 09/26/2022 9:42 AM EDT 14 mg 04- Shoulder (Right) Patch Applied 09/25/2022 8:49 AM EDT 14 mg 10- Arm Upper (Right) nicotine (Nicoderm CQ) 14 mg/24 hr patch Patch Verification Transdermal, 2 TIMES DAILY, First dose on Thu09/24/22 at 0300, Until Discontinued, Verify nicotine 14 mg/24 hr patch. nitroGLYcerin (200 mcg/mL) in dextrose 5% 250 mL infusion 0-200 mcg/min (0-60 mL/hr), Intravenous, CONTINUOUS, Starting on Thu09/18/22 at 1915, Until Thu09/19/22 at 1259, For hypertension. Titrate to keep systolic blood pressure less than 110 mmHg. Initiate at 25 mcg/min. Adjust by 25 mcg/min every 5 minutes. Dose not to exceed 200 mcg/minute., Routine Rate/Dose Change 09/18/2022 8:16 PM EDT 80 mcg/min 24 mL/hr Rate/Dose Verify 09/18/2022 8:00 PM EDT 125 mcg/min 37.5 m L/hr New Bag 09/18/2022 7:01 PM EDT 125 mcg/min 37.5 mL/hr NORepinephrine (Levophed) (16 mcg/mL) in dextrose 5% 250 mL infusion 0-30 mcg/min (0-112.5 mL/hr), Intravenous, CONTINUOUS, Starting on Chelo 09/18/22 at 1915, Until Thu09/19/22 at 1259, Titrate to keep systolic blood pressure greater than 90 mmHg. Start at 2 mcg/minute and adjust by 2 mcg/min every 3 minutes. Dose not to exceed 30 mcg/minute. Begin if PHENYLephrine and/or vasopressin ineffective. Call pager # [phone] if initiated., Routine Rate/Dose Verify 09/19/2022 12:00 AM EDT 2 mcg/min 7.5 mL/hr Rate/Dose Verify 09/18/2022 11:00 PM EDT 2 mcg/min 7.5 mL /hr Rate/Dose Verify 09/18/2022 10:00 PM EDT 2 mcg/min 7.5 mL /hr oxyCODONE (Roxicodone) tablet 5-10 mg 5-10 mg, Oral, EVERY 4 HOURS PRN, Starting on Chelo 09/18/22 at 1822, Until 09/27/22 at 1529, Pain, - When tolerating oral medications. - Initial dose 5 mg. - If pain control not adequate in 60 minutes, give additional 5 mg., Routine Given 09/22/2022 5:01 PM EDT 10 mg Given 09/22/2022 12:53 PM EDT 10 mg Given 09/22/2022 8:44 AM EDT 10 mg pantoprazole (Protonix) injection 40 mg 40 mg, Intravenous, DAILY, First dose on Chelo 09/18/22 at 1915, Until Discontinued, Reconstitute with 10 mL of normal saline to a concentration of 4 mg/mL and inject slowly over 2 minutes. Reconstitute with 10 mL of normal saline to a concentration of 4 mg/mL and inject slowly over 2 minutes., Routine Given 09/19/2022 9:59 AM EDT 4 0 mg Given 09/18/2022 7:47 PM EDT 40 mg pantoprazole EC (Protonix) tablet 40 mg 40 mg, Oral, DAILY, First dose on Thu09/18/22 at 1915, Until Discontinued, DO NOT CRUSH OR OPEN If unable to take PO, may give IV Given 09/27/2022 8:58 AM EDT 40 mg Given 09/26/2022 9:40 AM EDT 40 mg Given 09/25/2022 10:21 AM EDT 40 mg polyethylene glycoL (Miralax) packet 17 g 17 g, Oral, DAILY, First dose on Thu09/23/22 at 0900, Until Discontinued, Routine Given 09/26/2022 9:43 AM EDT 17 g Given 09/24/2022 8:27 AM EDT 17 g Given 09/23/2022 9:13 AM EDT 17 g potassium chloride ER (Klor-Con M) crystal tablet 10 mEq 10 mEq, Oral, ONCE, 1 dose, On Thu09/26/22 at 0945, potassium chloride ER particle/crystal tablets (Klor-Con M) may be broken in half and each half swallowed separately. Tablets can be dissolved in ~4 ounces of water; allow ~2 minutes to dissolve, stir well and drink immediately. Do not crush, chew, or suck on tablet., Routine Given 09/26/2022 9:45 AM EDT 10 mEq potassium chloride ER (Klor-Con M) crystal tablet 40 mEq 40 mEq, Oral, ONCE, 1 dose, On Thu09/24/22 at 0915, potassium chloride ER particle/crystal tablets (Klor-Con M) may be broken in half and each half swallowed separately. Tablets can be dissolved in ~4 ounces of water; allow ~2 minutes to dissolve, stir well and drink immediately. Do not crush, chew, or suck on tablet., Routine Given 09/24/2022 8:35 AM EDT 40 mEq potassium chloride ER (Klor-Con M) crystal tablet 60 mEq 60 mEq, Oral, ONCE, 1 dose, On Thu09/25/22 at 0200, Potassium chloride ER tablet preferred; may give liquid if unable to swallow ER tablet. Serum potassium levels should be re-checked 4 hours after completion of last dose & prior to administration of any additional doses. potassium chloride ER particle/crystal tablets (Klor-Con M) may be broken in half and each half swallowed separately. Tablets can be dissolved in ~4 ounces of water; allow ~2 minutes to dissolve, stir well and drink immediately. Do not crush, chew, or suck on tablet., Routine Given 09/25/2022 1:33 AM EDT 60 mEq propofoL (Diprivan) (10 mg/mL) infusion 0-50 mcg/kg/min ? 100.2 kg (0-30.06 mL/hr, rounded to 0-30.1 mL/hr), Intravenous, CONTINUOUS, Starting on Thu09/18/22 at 1915, Until Thu09/19/22 at 1259, Titrate to sedation level of RASS Goal (-) 1. Start at 10 mcg/kg/min, adjust rate by 5 mcg/kg/min every 3 minutes. Dose not to exceed 50 mcg/kg/minute. Discontinue upon extubation., Routine Rate/Dose Verify 09/19/2022 12:00 AM EDT 50 mcg/kg/min 30.1 mL/hr Rate/Dose Verify 09/18/2022 11:00 PM EDT 50 mcg/kg/min 30. 1 mL/hr Rate/Dose Verify 09/18/2022 10:00 PM EDT 50 mcg/kg/min 30. 1 mL/hr propofoL (Diprivan) 10 mg/mL infusion 1 dose, Starting on Thu09/18/22 at 1750, Until Thu09/18/22 at 1915, Cathy Hagan: cabinet override senna-docusate (Pericolace) 8.6-50 mg per tablet 2 tablet 2 tablet, Oral, DAILY, First dose on Thu09/19/22 at 2100, Until Discontinued, Post-op day 1, Routine Given 09/22/2022 8:46 PM EDT 2 tablets Given 09/21/2022 8:01 PM EDT 2 tablets Given 09/20/2022 8:13 PM EDT 2 tablets senna-docusate (Pericolace) 8.6-50 mg per tablet 2 tablet 2 tablet, Oral, 2 TIMES DAILY, First dose (after last modification) on Thu09/23/22 at 1445, Until Discontinued, Post-op day 1, Routine Given 09/26/2022 9:43 AM EDT 2 tablets Given 09/25/2022 8:17 PM EDT 2 tablets Given 09/24/2022 8:27 AM EDT 2 tablets sodium chloride 0.9 % (flush) (BD PosiFlush Normal Saline 0.9) flush 5 mL 5 mL, Intravenous, EVERY 8 HOURS, First dose on Thu09/19/22 at 1345, Until Discontinued, Routine Given 09/27/2022 4:54 AM EDT 5 mLs Given 09/26/2022 8:49 PM EDT 5 mLs Given 09/26/2022 1:01 PM EDT 5 mLs sodium chloride 0.9% infusion 0-500 mL/hr, Intravenous, CONTINUOUS, Starting on Chelo 09/18/22 at 1915, Until Thu09/19/22 at 1259, Bolus 250 mL every 5 minutes as needed for volume replacement to maintain cardiac index greater than or equal to 2.0 L/min/M2. Maximum volume 2 L. Call powerhouse engineer for additional fluid orders: pager #[phone]. Rate/Dose Verify 09/19/2022 12:00 PM EDT 1 mL/hr 1 mL/hr Rate/Dose Verify 09/19/2022 10:00 AM EDT 1 mL/hr 1 mL/h r Rate/Dose Verify 09/19/2022 8:00 AM EDT 1 mL/hr 1 mL/hr sodium chloride 0.9% infusion 10-30 mL/hr, Intravenous, DAILY PRN, Starting on Thu09/18/22 at 1822, Until Thu09/19/22 at 1259, Side port TKO rate, per [facility] nursing protocol. Rate/Dose Verify 09/19/2022 8:00 AM EDT 30 mL/hr 30 mL/hr Rate/Dose Verify 09/19/2022 6:00 AM EDT 30 mL/hr 30 mL/h r Rate/Dose Verify 09/19/2022 4:00 AM EDT 30 mL/hr 30 mL/h r sodium chloride 0.9% infusion 10-30 mL/hr, Intravenous, DAILY PRN, Starting on Chelo 09/18/22 at 1822, Until Thu09/19/22 at 1259, Side port TKO rate, per [facility] nrusing protocol. Rate/Dose Verify 09/19/2022 12:00 PM EDT 30 mL/hr 30 mL/hr Rate/Dose Verify 09/19/2022 10:00 AM EDT 30 mL/hr 30 mL/ hr Rate/Dose Verify 09/19/2022 8:00 AM EDT 30 mL/hr 30 mL/h r spironolactone (Aldactone) tablet 25 mg 25 mg, Oral, DAILY, First dose (after last modification) on Thu09/23/22 at 0915, Until Discontinued, DO NOT SPLIT, CRUSH OR OPEN, Routine Given 09/27/2022 8:58 AM EDT 25 mg Given 09/26/2022 9:41 AM EDT 25 mg Given 09/25/2022 10:21 AM EDT 25 mg vancomycin (Vancocin) 1 gram in sodium chloride 0.9% 250 mL infusion 1 g, Intravenous, at 250 mL/hr, ONCE, 1 dose, On Thu09/18/22 at 1100, Maximum infusion rate is 1 gram/hour. If flushing of the face, neck, upper body, arms, and/or back occurs decrease infusion rate by 50% to reduce the severity of symptoms. This medication may have an associated drug lab level. Please see MAR for scheduled level. Warning Vesicant/Irritant Medication , STAT, Indication for (Active or Suspected): Prophylaxis New Bag 09/18/2022 11:03 AM EDT 1 g 250 mL/hr Left Arm warfarin (COUMADIN) daily order reminder Oral, EVERY 24 HOURS, First dose on Thu09/25/22 at 1400, Until Discontinued, If the daily warfarin order has not been placed, contact the Provider to confirm that the order will be written, the dose is held or discontinued., Treatment Plan: New Start, Indication for Anticoagulation: Atrial Fibrillation, INR Goal Range: 2-3, Anticipated Duration of Therapy: Indefinite warfarin (Coumadin) tablet 5 mg 5 mg, Oral, ONCE, 1 dose, On Thu09/24/22 at 1700, DO NOT SPLIT, CRUSH OR OPEN, Routine Given 09/24/2022 5:38 PM EDT 5 mg warfarin (Coumadin) tablet 5 mg 5 mg, Oral, ONCE, 1 dose, On Thu09/25/22 at 1700, DO NOT SPLIT, CRUSH OR OPEN, Routine Given 09/25/2022 4:33 PM EDT 5 mg warfarin (Coumadin) tablet 5 mg 5 mg, Oral, ONCE, 1 dose, On Thu09/26/22 at 1700, DO NOT SPLIT, CRUSH OR OPEN, Routine Given 09/26/2022 5:05 PM EDT 5 mg documented in this encounter Active and Recently Administered Medications Times are shown in EDT. Scheduled Medication Order 09/25/2022 09/26/2022 09/27/2022 acetaminophen (Tylenol) tablet 1,000 mg(Linked Group 1) 1,000 mg, Oral, EVERY 6 HOURS SCHEDULED, First dose on Thu09/19/22 at 1800, Until Discontinued, For pain when taking by mouth. Maximum dose of acetaminophen is 4,000 mg from all sources in 24 hours. When ordered for pain, acetaminophen should be given even when other ordered pain medications are indicated., Routine 0550 (Given - Provider: Edward Cavanaugh RN)1300 (Given - Provider: Chepe Harris RN)2017 (Given - Provider: Aniceto Saldana II, RN) 0122 (Given - Provider: Aniceto Saldana II, RN)0650 (Given - Provider: Aniceto Saldana II, XI)1300 (Given - Provider: Marli Gross RN)1705 (Given - Provider: Marli Gross RN) 0012 (Given - Provider: Aniceto Saldana II, RN)0509 (Given - Provider: Aniceto Saldana II, XI)1200 (Due) AMIOdarone (Pacerone) tablet 200 mg 200 mg, Oral, 2 TIMES DAILY, First dose on Thu09/23/22 at 0900, Until Discontinued, Routine 1021 (Given - Provider: Chepe Harris RN)2017 (Given - Provider: Aniceto Saldana II, RN) 0940 (Given - Provider: Marli Gross RN)2048 (Given - Provider: Aniceto Saldana II, RN) 0858 (Given - Provider: Oksana Patricia RN) aspirin chewable tablet 81 mg(Linked Group 2) 81 mg, Oral, DAILY, First dose on Thu09/19/22 at 0900, Until Discontinued, Start on Post-Op Day 1 in the AM, If unable to take PO, may give SD, Routine 1021 (Given - Provider: Chepe Harris RN) 0940 (Given - Provider: Marli Gross RN) 0858 (Given - Provider: Oksana Patricia, XI) atorvastatin (Lipitor) tablet 40 mg 40 mg, Oral, EVERY EVENING, First dose (after last modification) on Thu09/24/22 at 1700, Until Discontinued, Routine 1633 (Given - Provider: Chepe Harris RN) 170 (Given - Provider: Marli Gross RN) buPROPion SR (Wellbutrin SR) tablet 150 mg 150 mg, Oral, 2 TIMES DAILY, First dose on Thu09/19/22 at 0900, Until Discontinued, DO NOT CRUSH OR OPEN, Routine 1022 (Given - Provider: Chepe Harris RN)2016 (Given - Provider: Aniceto Saldana II, RN) 940 (Given - Provider: Marli Gross RN)2048 (Given - Provider: Aniceto Saldana II, RN) 0858 (Given - Provider: Oksana Patricia RN) furosemide (Lasix) (10 mg/mL) injection 20 mg 20 mg, Intravenous, 2 TIMES DAILY, First dose on Thu09/19/22 at 0945, Until Discontinued 1022 (Given - Provider: Chepe Harris RN)1633 (Given - Provider: Chepe Harris RN) 0941 (Given - Provider: Marli Gross RN)170 (Given - Provider: Marli Gross, XI) 0859 (Given - Provider: Oksana Patricia, XI) guaiFENesin ER (Mucinex) tablet 600 mg 600 mg, Oral, 2 TIMES DAILY, First dose on Thu09/22/22 at 0800, Until Discontinued, DO NOT CRUSH OR OPEN, Routine 1022 (Given - Provider: Chepe Harris RN)2016 (Given - Provider: Aniceto Saldana II, RN) 09 (Given - Provider: Marli Gross RN)2048 (Given - Provider: Aniceto Saldana II, RN) 0900 (Not Given - Provider: Oksana Patricia, RN - Reason: Patient/family refused) ipratropium-albuteroL (Duoneb) 0.5 mg-3 mg(2.5 mg base)/3 mL nebulizer solution 3 mL 3 mL, Nebulization, EVERY 4 HOURS, First dose on Thu09/22/22 at 0800, Until Discontinued, Routine 0425 (Given - Provider: Edward Cavanaugh RN)0848 (Given - Provider: Chepe Harris RN)1300 (Given - Provider: Chepe Harris RN)1633 (Given - Provider: Chepe Harris RN)2018 (Given - Provider: Aniceto Saldana II, RN) 0023 (Given - Provider: Aniceto Saldana II, RN)0451 (Given - Provider: Aniceto Saldana II, RN)0945 (Given - Provider: Marli Gross RN)1300 (Given - Provider: Marli Gross RN)1706 (Given - Provider: Marli Gross RN)2048 (Given - Provider: Aniceto Saldana II, RN) 0012 (Given - Provider: Aniceto Saldana II, RN)0454 (Given - Provider: Aniceto Saldana II, RN)0857 (Given - Provider: Oksana Patricia, XI)1200 (Due) lidocaine (Lidoderm) 5% patch 1 patch 1 patch, Transdermal, Administer over 12 Hours, EVERY 24 HOURS, First dose on Thu09/22/22 at 0800, Until Discontinued, Apply patch(es) for 12 hours, and then remove for 12 hours, Routine 0849 (Patch Applied - Provider: Chepe Harris RN)2049 (Patch Removed - Provider: Aniceto Saldana II, RN) 0800 (Patch Applied - Provider: Marli Gross RN)2000 (Patch Removed - Provider: Aniceto Saldana II, RN) 0800 (Not Given - Provider: Oksana Patricia, XI - Reason: Patient/family refused) losartan (Cozaar) tablet 25 mg 25 mg, Oral, DAILY, First dose on Thu09/25/22 at 0915, Until Discontinued, Routine 0915 (Given - Provider: Chepe Harris RN) 0941 (Given - Provider: Marli Gross RN) 0858 (Given - Provider: Oksana Patricia, XI) metoproloL tartrate (Lopressor) tablet 25 mg 25 mg, Oral, EVERY 12 HOURS SCHEDULED (2 times per day), First dose (after last modification) on Thu09/24/22 at 0715, Until Discontinued, Hold for HR less than 60 or SBP less than 90, Routine 102 (Given - Provider: Chepe Harris RN)2016 (Given - Provider: Aniceto Saldana II, XI) 0941 (Given - Provider: Marli Gross RN)204 (Given - Provider: Aniceto Saldana II, RN) 0858 (Given - Provider: Oksana Patricia, XI) nicotine (Nicoderm CQ) 14 mg/24 hr patch 14 mg(Linked Group 3) 14 mg (1 patch), Transdermal, Administer over 24 Hours, DAILY, First dose on Thu09/23/22 at 1545, Until Discontinued, Apply new patch to clean, dry, hair-free skin on the upper body or upper outer arm; each patch should be applied to a different site. , Routine 0827 (Patch Removed - Provider: Chepe Harris RN)0849 (Patch Applied - Provider: Chepe Harris RN) 0849 (Patch Removed - Provider: Marli Gross RN)0942 (Patch Applied - Provider: Marli Gross RN) 0857 (Patch Removed - Provider: Oksana Patricia, XI)0858 (Patch Applied - Provider: Oksana Patricia, XI)1329 (Due: Patch Removed - Provider: Automatic Discharge Provider - Comment: Time automatically adjusted from order being discontinued) nicotine (Nicoderm CQ) 14 mg/24 hr patch Patch Verification(Linked Group 3) Transdermal, 2 TIMES DAILY, First dose on Thu09/24/22 at 0300, Until Discontinued, Verify nicotine 14 mg/24 hr patch. 0900 (Patch (dose and location) verified - Provider: Chepe Harris RN)2100 (Patch Not Verified (add comment) - Provider: Aniceto Saldana II, RN - Comment: Patient took bath and removed nicotine patch) 0900 (Patch (dose and location) verified - Provider: Marli Gross RN)2100 (Patch Not Verified (add comment) - Provider: Aniceto Saldana II, RN - Comment: Not present on patient) 0900 (Patch (dose and location) verified - Provider: Oksana Patricia, XI) pantoprazole EC (Protonix) tablet 40 mg(Linked Group 4) 40 mg, Oral, DAILY, First dose on Thu09/18/22 at 1915, Until Discontinued, DO NOT CRUSH OR OPEN If unable to take PO, may give IV 1021 (Given - Provider: Chepe Harris RN) 0940 (Given - Provider: Marli Gross RN) 0858 (Given - Provider: Oksana Patricia, XI) polyethylene glycoL (Miralax) packet 17 g 17 g, Oral, DAILY, First dose on Thu09/23/22 at 0900, Until Discontinued, Routine 0900 (Not Given - Provider: Chepe Harris RN - Reason: Patient/family refused) 0943 (Given - Provider: Marli Gorss, XI) 0900 (Not Given - Provider: Oksana Patricia RN - Reason: Patient/family refused) potassium chloride ER (Klor-Con M) crystal tablet 10 mEq (COMPLETED) 10 mEq, Oral, ONCE, 1 dose, On Thu09/26/22 at 0945, potassium chloride ER particle/crystal tablets (Klor-Con M) may be broken in half and each half swallowed separately. Tablets can be dissolved in ~4 ounces of water; allow ~2 minutes to dissolve, stir well and drink immediately. Do not crush, chew, or suck on tablet., Routine 0945 (Given - Provider: Marli Gross RN) potassium chloride ER (Klor-Con M) crystal tablet 60 mEq (COMPLETED)(Linked Group 5) 60 mEq, Oral, ONCE, 1 dose, On Thu09/25/22 at 0200, Potassium chloride ER tablet preferred; may give liquid if unable to swallow ER tablet. Serum potassium levels should be re-checked 4 hours after completion of last dose & prior to administration of any additional doses. potassium chloride ER particle/crystal tablets (Klor-Con M) may be broken in half and each half swallowed separately. Tablets can be dissolved in ~4 ounces of water; allow ~2 minutes to dissolve, stir well and drink immediately. Do not crush, chew, or suck on tablet., Routine 0133 (Given - Provider: Edward Cavanaugh RN) senna-docusate (Pericolace) 8.6-50 mg per tablet 2 tablet 2 tablet, Oral, 2 TIMES DAILY, First dose (after last modification) on Thu09/23/22 at 1445, Until Discontinued, Post-op day 1, Routine 0900 (Not Given - Provider: Chepe Harris RN - Reason: Patient/family refused)2017 (Given - Provider: Aniceto Saldana II, RN) 0943 (Given - Provider: Marli Gross, XI)2100 (Not Given - Provider: Aniceto Saldana II, RN - Reason: Patient/family refused) 0900 (Not Given - Provider: Oksana Patricia RN - Reason: Patient/family refused) sodium chloride 0.9 % (flush) (BD PosiFlush Normal Saline 0.9) flush 5 mL 5 mL, Intravenous, EVERY 8 HOURS, First dose on Thu09/19/22 at 1345, Until Discontinued, Routine 0550 (Given - Provider: Edward Cavanaugh RN)1633 (Given - Provider: Chepe Harris RN)2145 (Given - Provider: Aniceto Saldana II, RN) 0650 (Given - Provider: Aniceto Saldana II, RN)1301 (Given - Provider: Marli Gross, XI)2049 (Given - Provider: Aniceto Saldana II, XI) 0454 (Given - Provider: Aniceto Saldana II, RN) spironolactone (Aldactone) tablet 25 mg 25 mg, Oral, DAILY, First dose (after last modification) on Thu09/23/22 at 0915, Until Discontinued, DO NOT SPLIT, CRUSH OR OPEN, Routine 1021 (Given - Provider: Chepe Harris RN) 0941 (Given - Provider: Marli Gross, XI) 0858 (Given - Provider: Oksana Patricia RN) warfarin (COUMADIN) daily order reminder Oral, EVERY 24 HOURS, First dose on Thu09/25/22 at 1400, Until Discontinued, If the daily warfarin order has not been placed, contact the Provider to confirm that the order will be written, the dose is held or discontinued., Treatment Plan: New Start, Indication for Anticoagulation: Atrial Fibrillation, INR Goal Range: 2-3, Anticipated Duration of Therapy: Indefinite 1400 (Dose confirmed - Provider: Chepe Harris RN) 1400 (Dose confirmed - Provider: Marli Gross RN) warfarin (Coumadin) tablet 5 mg (COMPLETED) 5 mg, Oral, ONCE, 1 dose, On Chelo 09/25/22 at 1700, DO NOT SPLIT, CRUSH OR OPEN, Routine 1633 (Given - Provider: Chepe Harris RN) warfarin (Coumadin) tablet 5 mg (COMPLETED) 5 mg, Oral, ONCE, 1 dose, On Thu09/26/22 at 1700, DO NOT SPLIT, CRUSH OR OPEN, Routine 1705 (Given - Provider: Marli Gross RN) PRN Medication Order 09/25/2022 09/26/2022 09/27/2022 bisacodyL (Dulcolax) suppository 10 mg 10 mg, Rectal, DAILY PRN, Starting on Thu09/21/22 at 0000, Until 09/27/22 at 1529, Constipation, Starting post-op day 3., Routine hydrALAZINE (Apresoline) (20 mg/mL) injection 10 mg 10 mg, Intravenous, EVERY 2 HOURS PRN, Starting on Thu09/19/22 at 0100, Until 09/27/22 at 1529, High Blood Pressure, SBP>120mmHg LORazepam (Ativan) tablet 0.5 mg 0.5 mg, Oral, EVERY 6 HOURS PRN, Starting on 09/22/22 at 1205, Until 09/27/22 at 1529, Anxiety, Routine magnesium hydroxide (Milk of Magnesia) (80mg/mL) oral liquid 30 mL 30 mL, Oral, DAILY PRN, Starting on Chelo 09/18/22 at 1822, Until 09/27/22 at 1529, Constipation, 30 mL regular (400 mg/5 mL) = 10 mL concentrate (2400 mg/10 mL), Routine melatonin tablet 6 mg 6 mg, Oral, NIGHTLY PRN, Starting on 09/21/22 at 2307, Until 09/27/22 at 1529, sleep, Routine 0133 (Given - Provider: Edward Cavanaugh, RN)2016 (Given - Provider: Aniceto Saldana II, XI) 2048 (Given - Provider: Aniceto Saldana II, XI) ondansetron (pf) (Zofran) (2 mg/mL) injection 4 mg 4 mg, Intravenous, EVERY 8 HOURS PRN, Starting on Chelo 09/18/22 at 1822, Until 09/27/22 at 1529, Nausea oxyCODONE (Roxicodone) tablet 5-10 mg 5-10 mg, Oral, EVERY 4 HOURS PRN, Starting on Chelo 09/18/22 at 1822, Until 09/27/22 at 1529, Pain, - When tolerating oral medications. - Initial dose 5 mg. - If pain control not adequate in 60 minutes, give additional 5 mg., Routine Linked Groups Order Group 1: acetaminophen (Ofirmev) (1,000 mg/100 mL) infusion 1,000 mg (COMPLETED) 1,000 mg, Intravenous, at 400 mL/hr, Administer over 15 Minutes, EVERY 6 HOURS SCHEDULED, 4 doses, First dose on Chelo 09/18/22 at 1915, Last dose on Thu09/19/22 at 1200, Maximum dose of acetaminophen is 4,000 mg from all sources in 24 hours. When ordered for pain, acetaminophen should be given even when other ordered pain medications are indicated. , Routine, Is ketorolac (Toradol) IV contraindicated? Yes, Can this patient tolerate oral medications or suppositories? No Followed by acetaminophen (Tylenol) tablet 1,000 mgJump to med 1,000 mg, Oral, EVERY 6 HOURS SCHEDULED, First dose on Thu09/19/22 at 1800, Until Discontinued, For pain when taking by mouth. Maximum dose of acetaminophen is 4,000 mg from all sources in 24 hours. When ordered for pain, acetaminophen should be given even when other ordered pain medications are indicated., Routine Group 2: aspirin chewable tablet 81 mgJump to med 81 mg, Oral, DAILY, First dose on Thu09/19/22 at 0900, Until Discontinued, Start on Post-Op Day 1 in the AM, If unable to take PO, may give SD, Routine Or aspirin suppository 300 mg (CANCELED) 300 mg, Rectal, DAILY, First dose on Thu09/19/22 at 0900, Until Discontinued, Start on Post-Op Day 1 in the AM. Give SD if unable to take PO, Routine Group 3: nicotine (Nicoderm CQ) 14 mg/24 hr patch 14 mgJump to med 14 mg (1 patch), Transdermal, Administer over 24 Hours, DAILY, First dose on Thu09/23/22 at 1545, Until Discontinued, Apply new patch to clean, dry, hair-free skin on the upper body or upper outer arm; each patch should be applied to a different site. , Routine And nicotine (Nicoderm CQ) 14 mg/24 hr patch Patch VerificationJump to med Transdermal, 2 TIMES DAILY, First dose on Thu09/24/22 at 0300, Until Discontinued, Verify nicotine 14 mg/24 hr patch. Group 4: pantoprazole EC (Protonix) tablet 40 mgJump to med 40 mg, Oral, DAILY, First dose on Thu09/18/22 at 1915, Until Discontinued, DO NOT CRUSH OR OPEN If unable to take PO, may give IV Or pantoprazole (Protonix) injection 40 mg (CANCELED) 40 mg, Intravenous, DAILY, First dose on Thu09/18/22 at 1915, Until Discontinued, Reconstitute with 10 mL of normal saline to a concentration of 4 mg/mL and inject slowly over 2 minutes. Reconstitute with 10 mL of normal saline to a concentration of 4 mg/mL and inject slowly over 2 minutes., Routine Group 5: potassium chloride ER (Klor-Con M) crystal tablet 60 mEq (COMPLETED)Jump to med 60 mEq, Oral, ONCE, 1 dose, On Thu09/25/22 at 0200, Potassium chloride ER tablet preferred; may give liquid if unable to swallow ER tablet. Serum potassium levels should be re-checked 4 hours after completion of last dose & prior to administration of any additional doses. potassium chloride ER particle/crystal tablets (Klor- Con M) may be broken in half and each half swallowed separately. Tablets can be dissolved in ~4 ounces of water; allow ~2 minutes to dissolve, stir well and drink immediately. Do not crush, chew, or suck on tablet., Routine Or potassium bicarbonate (Effer-K) effervescent tablet 60 mEq (COMPLETED) 60 mEq, Oral, ONCE, 1 dose, On Chelo 09/25/22 at 0200, Potassium chloride ER tablet preferred; may give liquid if unable to swallow ER tablet. Serum potassium levels should be re-checked 4 hours after completion of last dose & prior to administration of any additional doses. DO NOT GIVE UNDILUTED MEDICATION TO PATIENT. Dissolve tablet completely in 3-4 ounces of cold water or juice. May further dilute if adverse GI effects occur., Routine documented in this encounter Care Teams Freight Service Inspector Relationship Specialty Start Date End Date Ulises Singh MD PCP - General Family Medicine 09/02/22 documented as of this encounter
--- OUTSIDE RECORDS SUMMARY | 2024-02-25 10:39 | XMS_ITS | Encounter Summary ---
[place] [address] Care Team Providers Care Newspaper Columnist Name Role Phone Tono Montero MD Primary Care Provider Encounter Details Date Type Department Care Team (Late st Contact Info) Description 09/02/2022 [place] [phone] Unknown None Social History Tobacco Use Types Packs/Day Years Used Date Smoking Tobacco: Never Assessed Sex and Gender Information Value Date Recorded Sex Assigned at Male 12/27/2022 9:49 AM EDT Gender Identity Male 12/27/2022 9:49 AM EDT Sexual Orientation Straight 12/27/2022 9: 49 AM EDT documented as of this encounter Plan of Treatment Not on file documented as of this encounter Procedures Procedure Name Priority Date/Time Associated Diagnosis Comments ECHOCARDIOGRAM TRANSTHORACIC Routine 09/02/2022 11:43 PM EDT documented in this encounter Results * Echocardiogram Transthoracic (09/02/2022 11:43 PM EDT) Anatomical Region Laterality Modality Cardiac Other 09/02/2022 11:4 3 PM EDT Narrative 09/03/2022 5:21 PM EDT ? Echocardiogram Report Name: ADDIS DONNELLY ?Study Date: 09/02/2022 11:43 PMBP: 152/60 mmHg ? HR: 72 : 1960 ? Height: 170 cm Age: 62 yrs ? Weight: 101 kg Gender: Male ?BSA: 2.1 m2 Performed By: Pedro Andrea MD History: Bicuspid aortic valve Interpreting Fellow: Pedro Andrea. Exam Location: [facility]. Interpretation Summary 1. Echocardiogram by on-call fellow to assess ventricular function and valvular abnormalities. 2. The left ventricle is severely dilated (LVEDVi 161 ml/m2) and function is borderline reduced. Left ventricular ejection fraction is visually estimated to be 50%. There are wall motion abnormalities of the apex and lateral hilliard. 3. The right ventricle is normal in size and function. The pulmonary artery systolic pressure could not be estimated. 4. The aortic valve is probably bicuspid and is severely calcified. There is moderate to severe aortic stenosis, though is more likely severe (mean gradient 44 mmHg, DOI 0.31). There is moderate eccentric aortic regurgitation. 5. The aortic root is moderately dilated to 4.6 cm. The ascending aorta is moderately dilated to 4.5 cm. 6. There is no prior echocardiogram for comparison. Recommend a formal echocardiogram in the AM. Procedure Complete-81805. Satisfactory quality. There is normal sinus rhythm. Left Ventricle Left ventricle is severely dilated. Left ventricular ejection fraction is estimated visually at 50%. The left ventricular ejection fraction is 46% by Ramirez's biplane. Left ventricular systolic function is mildly reduced. There are segmental wall motion abnormalities. Right Ventricle The right ventricle is of normal size. Right ventricular systolic function is normal. Left Atrium The left atrium is not well visualized. Right Atrium The right atrium is not well visualized. Aortic Valve The aortic valve is not well visualized. The aortic valve may be bicuspid. The aortic valve is severely calcified. There is severe aortic stenosis. The peak instantaneous gradient across the aortic valve is 67.1 mmHg. The mean gradient across the aortic valve is 43.8 mmHg. The stroke volume index is 65 mL/m2. The dimensionless index is 0.31. There is moderate aortic regurgitation. PHT ~300 ms. Mitral Valve The mitral valve leaflets are thickened. There is no mitral stenosis. There is mild mitral regurgitation. Tricuspid Valve The tricuspid valve is not well visualized. There is trace tricuspid regurgitation. Pulmonic Valve The pulmonic valve is not well visualized. There is no pulmonic valve regurgitation. Great Arteries The aortic root at the level of the sinuses of Valsalva is moderately dilated. The diameter at the level of the sinuses of Valsalva is 4.6 cm. The ascending aorta is moderately dilated. The maximum diameter of the proximal ascending aorta is 4.5 cm. Pericardium/Pleural The pericardium appears normal. Ejection Fraction ?2D Measurements ? Volumes EF(MOD-bp): 46.3 % ?Ao root diam: 4.5 cm ? EDV (MOD-bp) Index: ?Ao root diam index: 2.1 ?160.5 ?asc Aorta Diam: 4.5 cm ? ESV (MOD-bp) Index: 86.2 ?LVOT diam: 2.3 cm ?SV(LVOT): 138.2 ml ? SI(LVOT): 65.2 ml/m2 Doppler LV V1 VTI: 32.0 cm Ao V2 VTI: 103.6 cm Ao Max: 409.1 cm/sec Ao valve max: 67.1 mmHg Ao valve mean: 43.8 mmHg MV E max humza: 69.0 cm/sec MV A max humza: 67.5 cm/sec MV E/A: 1.0 FINA(I,D): 1.3 cm2 Dimensionless index Aov: 0.31 I ?WMSI = 1.50 ? % Normal = 69 ?Segments ??Size X - Cannot ?2 - ?4 - ?1-2 ? small Interpret ?1 - Normal ?? Hypokinetic 3 - Akinetic Dyskinetic ?? 3-5 ? moderate 5 - ? 6-14 ?large Aneurysmal ?15-16 ?? diffuse Procedure Note Brody Russell MD - 09/03/2022 Echocardiogram Report Name: ADDIS DONNELLY Study Date: 311:43 PMBP: 152/60 mmHg HR: 72 : 1960 Height: 170 cm Age: 62 yrs Weight: 101 kg Gender: Male BSA: 2.1 m2 Performed By: Pedro Andrea MD History: Bicuspid aortic valve Interpreting Fellow: Pedro Andrea. Exam Location: [facility]. Interpretation Summary 1. Echocardiogram by on-call fellow to assess ventricular function andvalvular abnormalities. 2. The left ventricle is severely dilated (LVEDVi 161 ml/m2) and functionis borderline reduced. Left ventricular ejection fraction is visuallyestimated to be 50%. There are wall motion abnormalities of the apex and lateral hilliard. 3. The right ventricle is normal in size and function. The pulmonaryartery systolic pressure could not be estimated. 4. The aortic valve is probably bicuspid and is severely calcified. Thereis moderate to severe aortic stenosis, though is more likely severe (meangradient 44 mmHg, DOI 0.31). There is moderate eccentric aortic regurgitation. 5. The aortic root is moderately dilated to 4.6 cm. The ascending aortais moderately dilated to 4.5 cm. 6. There is no prior echocardiogram for comparison. Recommend a formal echocardiogram in the AM. Procedure Complete-[id number]. Satisfactory quality. There is normal sinus rhythm. Left Ventricle Left ventricle is severely dilated. Left ventricular ejection fractionis estimated visually at 50%. The left ventricular ejection fraction is 46%by Ramirez's biplane. Left ventricular systolic function is mildly reduced.There are segmental wall motion abnormalities. Right Ventricle The right ventricle is of normal size. Right ventricular systolic functionis normal. Left Atrium The left atrium is not well visualized. Right Atrium The right atrium is not well visualized. Aortic Valve The aortic valve is not well visualized. The aortic valve may be bicuspid.The aortic valve is severely calcified. There is severe aortic stenosis. Thepeak instantaneous gradient across the aortic valve is 67.1 mmHg. The meangradient across the aortic valve is 43.8 mmHg. The stroke volume index is 65 mL/m2.The dimensionless index is 0.31. There is moderate aortic regurgitation. PHT~300 ms. Mitral Valve The mitral valve leaflets are thickened. There is no mitral stenosis.There is mild mitral regurgitation. Tricuspid Valve The tricuspid valve is not well visualized. There is trace tricuspid regurgitation. Pulmonic Valve The pulmonic valve is not well visualized. There is no pulmonic valve regurgitation. Great Arteries The aortic root at the level of the sinuses of Valsalva is moderatelydilated. The diameter at the level of the sinuses of Valsalva is 4.6 cm. The ascendingaorta is moderately dilated. The maximum diameter of the proximal ascending aortais 4.5 cm. Pericardium/Pleural The pericardium appears normal. Ejection Fraction 2D Measurements Volumes EF(MOD-bp): 46.3 % Ao root diam: 4.5 cm EDV (MOD-bp)Index: Ao root diam index: 2.1 160.5 asc Aorta Diam: 4.5 cm ESV (MOD-bp)Index: 86.2 LVOT diam: 2.3 cm SV(LVOT): 138.2ml SI(LVOT): 65.2ml/m2 Doppler LV V1 VTI: 32.0 cm Ao V2 VTI: 103.6 cm Ao Max: 409.1 cm/sec Ao valve max: 67.1 mmHg Ao valve mean: 43.8 mmHg MV E max humza: 69.0 cm/sec MV A max humza: 67.5 cm/sec MV E/A: 1.0 FINA(I,D): 1.3 cm2 Dimensionless index Aov: 0.31 I WMSI = 1.50 % Normal = 69 SegmentsSize X - Cannot 2 - 4 - 1-2small Interpret 1 - Normal Hypokinetic 3 - Akinetic Dyskinetic 3-5moderate 5 - 6-14large Aneurysmal 15-16diffuse Unknown ECHO ORDERABLES documented in this encounter Visit Diagnoses Not on filedocumented in this encounter Care Teams Newspaper Columnist Relationship Specialty Start Date End Date Tono Montero MD PCP - General Family Medicine 09/02/22 documented as of this encounter
--- OUTSIDE RECORDS SUMMARY | 2024-02-25 10:39 | XMS_ITS | Encounter Summary ---
Author Organization Formerly [facility] [place] [address] Care Team Providers Care Neuroradiologist Name Role Phone Tono Montero MD Primary Care Provider [phone] Reason for Visit * Auth/Cert (Routine) Specialty Diagnoses / Procedures Referred By Mounika carr Referred To Contact Diagnoses Aortic stenosis Nstemi Procedures ER IPI Annamarie Mendoza MD [facility] [place] [address] [facility] Referral ID Status Reason Start Date Expiration Date Visits Re quested Visits Authorized [id number] 1 1 Encounter Details Date Type Department Care Team (Latest Contact Info) Description 09/02/2022 9:33 PM EDT - 09/04/2022 4:31 PM EDT Hospital Encounter Intermediate [place] [id number] Annamarie Mendoza MD [facility] [place] [address] Pasha Guillen MD [facility] [place] [address] Pleuritic chest pain; Hypertension, unspecified type Discharge Disposition: Home Social History Tobacco Use Types Packs/Day Years Used Date Smoking Tobacco: Never Assessed Sex and Gender Information Value Date Recorded Sex Assigned at Male 12/27/2022 9:49 AM EDT Gender Identity Male 12/27/2022 9:49 AM EDT Sexual Orientation Straight 12/27/2022 9: 49 AM EDT documented as of this encounter Last Filed Vital Signs Vital Sign Reading Time Taken Comments Blood Pressure 114/46 09/04/2022 3:16 PM EDT Pulse 45 09/04/2022 9:50 AM EDT Temperature 36.7 ??C (98.1 ??F) 09/04/2022 3:16 PM ED T Respiratory Rate 16 09/04/2022 3:16 PM EDT Oxygen Saturation 94% 09/04/2022 3:16 PM EDT Inhaled Oxygen Concentration - - Weight 101.5 kg (223 lb 12.3 oz) 09/04/2022 8:31 AM EDT Height 170.2 cm (5' 7) 09/02/2022 9:43 PM EDT Body Mass Index 35.05 09/02/2022 9:43 PM EDT documented in this encounter Discharge Summaries * Pasha Guillen MD - 09/04/2022 9:56 AM EDT Images from the original note were not included. Cardiology - Discharge Summary Patient Name: Conner Bridges Patient Age: 62 y.o. 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 Aortic root dilated to 4.6 cm,ascending aorta 4.4 cm. -LHC 60% prox RCA, nonobstructive disease -Follow up with cardiac surgery for surgical planning -GDMT includes metoprolol succinate 25mg, losartan 100mg qd -Continue aspirin 81mg and atorvastatin 80mg qd for coronary disease -Discharge weight 223 lbs; sent with 20mg po lasix qd -Follow up scheduled with both cardiac surgery and cardiology Discharge Diagnoses (Hospital Problems) and Secondary Diagnoses (Chronic Problems): Active Hospital Problems Diagnosis ??? Aortic stenosis Resolved Hospital Problems No resolved problems to display. Procedures/Cardiac Studies: RHC 09/04: LHC 09/04: TTE 09/03: Interpretation Summary -Left ventricle is severely dilated. Wall thickness is mildly increased. Left ventricular systolic function is mildly reduced. The left ventricular ejection fraction is 44% by Ramirez's biplane. There are multivessel segmental wall motion abnormalities, including akinetic segments at the apex and in the lateral wall. -The right ventricle is of normal size. Right ventricular systolic function is normal. Right ventricular systolic pressure is 48 mmHg. -Both atria are moderately dilated. -The aortic valve is not well visualized but may be bicuspid. There is significant mixed aortic valve disease, including moderate to severe aortic stenosis and moderate regurgitation. -The aortic root is dilated (4.6 cm). The ascending aorta is dilated (4.4 cm). -See report for additional findings. No comparison study is available. Aortic Valve The aortic valve is not well visualized. The aortic valve may be bicuspid. The aortic valve is moderately thickened. The aortic valve is moderately calcified. There is calcification of the aortic annulus. There is moderate to severe aortic stenosis. The peak instantaneous gradient across the aortic valve is 61 mmHg. The mean gradient across the aortic valve is 36. The highest gradient is obtained from the apical window. The aortic valve area calculated using the continuity equation is 1.0 cm2. The dimensionless index is 0.31. There is moderate aortic regurgitation. The regurgitant jet is directed eccentrically toward the interventricular septum. History of Presentation: 62 y.o. male with past medical history of JOSEPH, HTN, moderate to severe aortic stenosis with bicuspid aortic valve, dilated aortic root, smoker who presented to [facility] for progressive shortness of breath. Hospital Course: Severe bicuspid aortic stenosis Acute decompensated systolic heart failure Ischemic/nonischemic cardiomyopathy Type II NSTEMI 2/2 severe aortic stenosis Nonobstructive CAD Dilated aortic root / ascending aorta Patient was admitted for progressive shortness of breath and then setting of known history of moderate to severe bicuspid aortic stenosis. He was admitted to [facility] initially and started on a heparin infusion for type I versus type II NSTEMI as his troponin was mildly elevated. He was having no symptoms of chest pain but rather shortness of breath. He was transferred here for further evaluation ofhis aortic valve and coronary arteries. TTE performed which showed newly reduced LVEF 44% with apical and lateral wall akinesis. RV function normal with RVSP 48 mmHg. Biatrial dilation. Bicuspid aortic valve with mixed aortic valve disease including severe aortic stenosis (PG 61mmHg, MG 36mmHg, AVA1.0 cm2, DOI 0.31) and moderate aortic regurgitation. [...] with good output and therefore we started 20 mg p.o. Lasix as standing dose on discharge. Cardiac surgery consulted recommended valve /aortic surgery plus or minus bypass of RCA pending outpatient decision.He will be arranged cardiac surgery and cardiology follow-up on discharge. His GDMT includes metoprolol succinate 25 mg daily, losartan 100 mg daily. He will be on aspirin 81 mg daily, atorvastatin 80 mg daily given known coronary artery disease. Standing dose of 20 mg of p.o. Lasix as basal diuretic. Weight on day of discharge 223 pound. Important Studies and Lab Data: Discharge Labs: Recent Labs 09/03/22 0600 09/03/22 0006 WBC 9.1 10.0* HGB 15.4 15.0 PLATELET 171 160 Recent Labs 09/03/22205109/03/22 0006 NA 142 143 K 3.5 4.1 CL 104 107 CO2 25 24 BUN 17 16 CREATININE 0.85 0.81 GLUCOSE 159 124 Recent Labs 09/03/22205109/03/22 0006 CALCIUM 9.5 9.2 9.2 MAGNESIUM 0.79 0.76 PHOS -- 3.7 No results for input(s): CK, TROPONINT in the last 168 hours. Recent Labs 09/03/225 AST 13 ALT 16 ALKPHOS 59 BILITOT 1.1 BILIDIR 0.3 Recent Labs 09/03/225 INR 1.1 Lab Results Component Value Date CHLPL 105 09/03/2022 HDL 38 09/03/2022 CHOLHDL 2.8 09/03/2022 TRIG 132 09/03/2022 LDLCHOL 41 09/03/2022 No results for input(s): HA1C in the last 7068 hours. Pending Studies and Lab Data: Cardiac surgery evaluation. Discharge Conditions/Prognosis: Stable Discharge to: Home with (who is a physical therapist) Discharge Medications: Your Medications New Medications Dose Details atorvastatin 80 mg tablet Commonly known as: Lipitor Take 1 tablet by mouth every evening. 80 mg Quantity: 90 tablet Refills: 3 furosemide 20 mg tablet Commonly known as: Lasix Take 1 tablet by mouth daily. 20 mg Quantity: 60 tablet Refills: 0 losartan 100 mg tablet Commonly known as: Cozaar Take 1 tablet by mouth daily. Start taking on: September 05, 2022 100 mg Quantity: 90 tablet Refills: 3 metoprolol succinate XL 25 mg ER 24 hr tablet Commonly known as: Toprol-XL Take 1 tablet by mouth daily. Start taking on: September 05, 2022 25 mg Quantity: 30 tablet Refills: 12 Continued medications, unchanged Dose Details albuteroL 90 mcg/actuation HFA Aerosol Inhaler Inhale 2 puffs into the lungs every 4 hours as needed for Wheezing. Use with spacer 2 puff Refills: 0 aspirin EC 81 mg EC (DR) tablet Take 81 mg by mouth daily. 81 mg Refills: 0 buPROPion 100 mg tablet Commonly known as: Wellbutrin Take 100 mg by mouth 2 times daily. 100 mg Refills: 0 Cataflam 50 mg tablet 50MG = 1 Tablet(s), PO, Three times daily Generic drug: diclofenac Refills: 0 fish oil-omega-3 fatty acids 1,000 mg capsule Commonly known as: Fish Oil Take 2 g by mouth daily. 2 g Refills: 0 STOPPED Medications lisinopriL 5 mg tablet Commonly known as: Zestril Updated Allergies/ADRs: No Known Allergies Future Appointments and Orders Future Appointments and Orders Future Appointments Provider Department Dept Phone 09/09/2022 10:20 AM Mono Chavarria MD Cardiac Surgery at [facility] Arrive at: [facility] [employer]er Area [phone] 10/10/2022 2:00 PM Reynaldo Stack MD; Prabhjot Schuster MD Cardiology at [facility] Arrive at: [employer] Area [phone] General Instructions None Patient Instructions Patient Instructions on Discharge to Home Why you were hospitalized - You were hospitalized for shortness of breath in the setting of your known severely stenotic bicuspid aortic valve. You underwent an ultrasound which showed severe aortic stenosis that will require surgery. The surgery will help your symptoms of shortness of breath. You had a cardiac catheterization which did show a 60% blockage in the right coronary artery (previouslyknown from CT in the past) that Dr. Chavarria may speak with you about in clinic as he may or may not choose to bypass this artery during your surgery. We have scheduled you a surgery clinic appointment to see him next week and you will need a CT scan prior to that visit. You will follow up October 10with a slot operations manager in clinic. We sent you with medications below, but notably you will be discharged with 20mg lasix which is a water pill. You should weight yourself every morning and if your weight goes up by 4 lbs in 1 week, you should double your dose of lasix to 40mg daily. Your weight on discharge was 223 lbs. Please call the cardiology clinic if your weight goes up despite doubling the lasix or your shortness of breath worsens. Call your doctor or seek medical attention if you develop the following - chest pain, shortness of breath, feeling dizzy upon standing, passing out, diarrhea, constipation lasting longer than 2 days,fevers (temperature over 100.3), chills, abdominal pain, vomiting, difficulty or discomfort when urinating, bloody or black bowel movements, or any other acute or concerning symptom. Activity level - no vigorous activity, usual daily activities are permitted Diet - low sodium (< 2g / day) Driving - Please do not drive if you are feeling dizzy, have blurry vision, feel tired, or feel illin any way. Shower/Bath - as tolerated Wound Care - none Home Oxygen Therapy - none Other Important Instructions Follow-up Appointments Future Appointments Date Time Provider Department Center 09/09/2022 10:20 AM Mono Chavarria MD [facility] CARDIAC [facility] 10/10/2022 2:00 PM Prabhjot Schuster MD [facility] CARD 4A [facility] Your Inpatient Medical Team at [facility] Name(s) of your inpatient provider(s): Dr. Guillen For questions regarding issues relating to your hospitalization on the Hospital Medicine Service, please contact your inpatient physician through the [facility] Geological E Logger [phone]. Issues after hours and on weekends will be handled by the Hospitalist staff on-call. Your Primary Care Provider Tono Montero MD [phone] For questions regarding this document or issues relating to this hospitalization on the Medical Service, please contact your inpatient physician through the [facility] [employer] E Logger . Issues afterhours and on weekends will be handled by the Division Director staff on-call. documented in this encounter Discharge Instructions * Patient Instructions* Reynaldo Stack MD - 09/04/2022 10:29 AM EDT Patient Instructions on Discharge to Home Why you were hospitalized - You were hospitalized for shortness of breath in the setting of your known severely stenotic bicuspid aortic valve. You underwent an ultrasound which showed severe aortic stenosis that will require surgery. The surgery will help your symptoms of shortness of breath. You had a cardiac catheterization which did show a 60% blockage in the right coronary artery (previouslyknown from CT in the past) that Dr. Chavarria may speak with you about in clinic as he may or may not choose to bypass this artery during your surgery. We have scheduled you a surgery clinic appointment to see him next week and you will need a CT scan prior to that visit. You will follow up October 10with a slot operations manager in clinic. We sent you with medications below, but notably you will be discharged with 20mg lasix which is a water pill. You should weight yourself every morning and if your weight goes up by 4 lbs in 1 week, you should double your dose of lasix to 40mg daily. Your weight on discharge was 223 lbs. Please call the cardiology clinic if your weight goes up despite doubling the lasix or your shortness of breath worsens. Call your doctor or seek medical attention if you develop the following - chest pain, shortness of breath, feeling dizzy upon standing, passing out, diarrhea, constipation lasting longer than 2 days,fevers (temperature over 100.3), chills, abdominal pain, vomiting, difficulty or discomfort when urinating, bloody or black bowel movements, or any other acute or concerning symptom. Activity level - no vigorous activity, usual daily activities are permitted Diet - low sodium (< 2g / day) Driving - Please do not drive if you are feeling dizzy, have blurry vision, feel tired, or feel illin any way. Shower/Bath - as tolerated Wound Care - none Home Oxygen Therapy - none Other Important Instructions Follow-up Appointments Future Appointments Date Time Provider Department Center 09/09/2022 10:20 AM Mono Chavarria MD [facility] CARDIAC [facility] 09/09/2022 11:30 AM PRE ADMISSION, TESTING [facility] SAMEDAY [facility] 10/10/2022 2:00 PM Prabhjot Schuster MD [facility] CARD 4A [facility] Your Inpatient Medical Team at [facility] Name(s) of your inpatient provider(s): Dr. Guillen For questions regarding issues relating to your hospitalization on the Hospital Medicine Service, please contact your inpatient physician through the [facility] Geological E Logger [phone]. Issues after hours and on weekends will be handled by the Hospitalist staff on-call. Your Primary Care Provider Tono Montero MD [phone] Radial Access for Heart Cath Activity Try to avoid bending your wrist for the first 12-24 hours after the procedure to allow the artery to fully heal. Do not participate in active sports for 48 hours. Do not lift anything greater than 5 lbs. Catheter Insertion Area Care Take the dressing off of the catheter insertion site the morning following the procedure. Leave thesite open to air. If the site is oozing you may cover it with a band aid. You may take a shower if you wish. Look for signs of infection over the next several days. It is uncommon to have any visible blood at the site, any obvious bleeding is abnormal. A bruise around the wrist or small lump under the skin is normal: they generally disappear in 3-5 days. Expect some mild tenderness over the area where the catheter was inserted. You will notice this after the local anesthetic (numbing medicine) wears off. This should improve during the 24-48 hours after the procedure. You may use acetaminophen (tylenol) if needed. Contact your doctor if the discomfort worsens. Problems to Watch for If there is bright red blood flowing from the catheter insertion area: *stop what you are doing *hold pressure steadily on the area for 15 minutes *call for help *if the bleeding does not stop in 15 minutes call 911 for an ambulance. If there is swelling with black and blue color at the catheter insertion site, there may be bleeding inside. Contact the doctor if there is any increase in size. Look at the insertion site for the first few days at home. Signs of infection are: *redness *swelling *yellow, white, green or brown foul smelling drainage. *increased soreness If you think there is an infection, take your temperature. Then call your doctor. The limb on the side where you had your catheterization should look and feel normal in color, sensation, and temperature. If your hand or fingers become cool, pale, blue or change color contact your doctor. If you are having numbness or tingling in your fingers or hand contact your doctor. Follow-up: Future Appointments Date Time Provider Department Center 09/09/2022 10:20 AM DeonMono melgar MD [facility] CARDIAC [facility] 09/09/2022 11:30 AM PRE ADMISSION, TESTING [facility] SAMEDAY [facility] 10/10/2022 2:00 PM Prabhjot Schuster MD [facility] CARD 4A [facility] Your Inpatient Doctor: Pasha Guillen MD Your Primary Care Provider: Tono Montero MD [phone] For questions regarding this document or issues relating to this hospitalization on the Medical Service, please contact your inpatient physician through the [facility] [employer]ological E Logger . Issues afterhours and on weekends will be handled by the Hospitalist staff on-call. documented in this encounter Medications at Time of Discharge Medication Sig Dispensed Refills Start Date End Date buPROPion SR (Wellbutrin SR) 150 mg SR 12 hr tablet Take 150 mg by mouth daily. 08/13/2022 aspirin 81 mg Tablet, Delayed Release (E.C.) Take 81 mg by mouth daily. nicotine (Nicoderm CQ) 14 mg/24 hr Patch 24 hr APPLY 1 PATCH TOPICALLY TO THE SKIN EVERY DAY 08/13/2022 09/09/2022 nicotine polacrilex (Nicorette) 2 mg gum 08/13/2022 023 atorvastatin (Lipitor) 20 mg tablet Take 20 mg by mouth nightly. 08/13/2022 09/09/2022 atorvastatin (Lipitor) 80 mg tablet Take 1 tablet by mouth every evening. 90 tablet 3 09/04/2022 09/27/2022 furosemide (Lasix) 20 mg tablet Take 1 tablet by mouth daily. 60 tablet 09/04/2022 09/27/2022 losartan (Cozaar) 100 mg tablet Take 1 tablet by mouth daily. 90 tablet 3 09/05/2022 09/27/2022 metoprolol succinate XL (Toprol-XL) 25 mg ER 24 hr tablet Take 1 tablet by mouth daily. 30 tablet 12 09/05/2022 09/27/2022 albuterol (PROVENTIL HFA;VENTOLIN HFA;PROAIR) 90 mcg/actuation HFA Aerosol Inhaler Inhale 2 puffs into the lungs every 4 hours as needed for Wheezing. Use with spacer 03/04/2023 buPROPion (WELLBUTRIN) 100 mg Tablet Take 100 mg by mouth 2 times daily. 09/09/2022 fish oil-omega-3 fatty acids 1,000 mg Capsule Take 2 g by mouth daily. 09/09/2022 diclofenac (CATAFLAM) 50 mg tablet 50MG = 1 Tablet(s), PO, Three times daily 07/17/2006 09/27/2022 documented as of this encounter Progress Notes * Diana Rojo RN - 09/04/2022 4:31 PM EDT Pt was discharged home today with no services. was at bedside during discharge. Both patient and stated understanding of discharge information. No services were ordered for pt upon discharge. * Francisco Horan MD - 09/04/2022 3:17 PM EDTSummary: Post Cath Check Post Cardiac Catheterization Check Note Subjective: No chest pain, dyspnea, hand/arm pain. No rash. No weakness/numbness/tingling. No bleeding/swelling from access site. Objective: Blood pressure 118/62, pulse (!) 45, temperature 36.4 ??C (97.5 ??F), temperature source Oral, resp. rate 14, height 170.2 cm (5' 7), weight 101.5 kg (223 lb 12.3 oz), SpO2 94 %. General: sitting in bed in NAD. Site: access site without hematoma or ecchymoses. dressing c/d/i. No bruit. Nontender. Extrem: no livedo reticularis, warm/symmetric, sensation intact/symmetric, symmetric 2+ radial pulses. A/P: s/p cath with benign-appearing right radial access site and no issues Francisco Horan MD * Pricila Mendiola RCP - 09/03/2022 10:57 PM EDT Checked on patient this evening to see if he would be amenable to wearing our V30 for nocturnal CPAP. He declined. States he would rather wear oxygen at night instead. RN informed to page RT if he changes his mind or if he decompensates. * Diana Rojo RN - 09/03/2022 8:11 PM EDT Pt has been rescheduled for cardiac cath tomorrow and was able to have a diet order for supper. Pt will be NPO again tonight at 12am for possible heart cath in the morning. No chest pain, sob was reported during shift. Continue to monitor pt for signs of cp, sob or discomfort. * Domo Damon MD - 09/03/2022 8:54 AM EDT Inpatient Cardiology Progress Note ID: Conner Bridges is a 62 y.o. male w/ PMH significant for JOSEPH, HTN, , tobacco use who presented as a transfer from [facility] with chest pain, found to have elevated Trop and acutely reduced ejection fraction. 24 hr events: - Admitted. NAEON. This AM: - Continues to endorse mild shortness of breath and generalized discomfort, but denies recurrent chest pain. Objective Vitals: Last value Range last 24 hrs Temperature Temp: 36.6 ??C (97.9 ??F) Temp: [36.4 ??C (97.5 ??F)-36.6 ??C (97.9 ??F)] Heart Rate Heart Rate: 56 Heart Rate: [52-57] Blood Pressure BP: 137/65 BP: (137-152)/(59-65) Respiratory Rate Resp: 19 Resp: [17-19] SpO2 SpO2: 95 % SpO2: [95 %-100 %] Intake/Output Summary (Last 24 hours) at 09/03/2022 0854 Last data filed at 09/03/2022 0311 Gross per 24 hour Intake 240 ml Output 1 ml Net 239 ml Patient Vitals for the past 168 hrs: Weight 09/02/22 2143 101.2 kg (223 lb 1.7 oz) Physical Exam: Gen: NAD; alert, oriented, conversant HEENT: anicteric, EOMI intact, CV: RRR, 3/6 holosystolic murmur at RUSB. Resp: CTAB, no crackles/wheezes/ronchi, normal work of breathing Abd: normal bowel sounds, soft, non-tender to palpation, no rebound or guarding Ext: 2+ distal pulses, trace pedal edema Neuro: no focal deficits noted, CN II-XII grossly intact, moves all extremities spontaneously Skin: no rashes, lesions, or ulcerations noted Pertinent Labs in the Last 24 Hours: Recent Labs 09/03/22 0600 09/03/22 0006 WBC 9.1 10.0* HGB 15.4 15.0 HCT 46.7 45.2 PLATELET 171 160 Recent Labs 09/03/22 0006 NA 143 K 4.1 CL 107 CO2 24 BUN 16 CREATININE 0.81 Recent Labs 09/03/22 0006 AST 13 ALT 16 ALKPHOS 59 BILITOT 1.1 BILIDIR 0.3 Recent Labs 09/03/22 0006 CALCIUM 9.2 9.2 MAGNESIUM 0.76 PHOS 3.7 Recent Labs 09/03/22 0006 INR 1.1 PT 12.9* PTT 33 Troponin (06): 52. LDL 41 / HDL 38 / TG 132 BNP 1871 TSH 1.74 No results for input(s): CK, TROPONINT in the last 168 hours. No results for input(s): POCGLU in the last 168 hours. Meds: Continuous Infusions: Scheduled Meds: ??? furosemide 20 mg Intravenous Once ??? aspirin EC 81 mg Oral Daily ??? atorvastatin 20 mg Oral QPM ??? losartan 100 mg Oral Daily ??? metoprolol succinate XL 25 mg Oral Daily ??? psyllium 1 packet Oral BID ??? sodium chloride 0.9 % (flush) 5 mL Intravenous BID ??? sodium chloride 0.9 % (flush) 5 mL Intravenous BID PRN Meds:.albuteroL, sodium chloride 0.9 % (flush), lidocaine, nitroGLYcerin, sodium chloride 0.9 %(flush), lidocaine, acetaminophen Micro: None. Imaging/Studies in the Last 24 Hours: CXR 09/02: - Pending. TTE 09/02: - Pending. Assessment & Plan: Conner Bridges is a 62 y.o. male w/ PMH significant for JOSEPH, HTN, , tobacco use who presented as atransfer from [facility] with chest pain, found to have elevated Trop and acutely reduced ejection fraction. Presentation concerning for NSTEMI vs. Worsening . Heparin now held. Bedside echo revealed LVEF 46% with wall motion abnormalities of the apex and lateral hilliard, moderate to severe . Planning for formal TTE this AM with right and left heart catheterization today. ?? # Possible NSTEMI # Aortic stenosis # First degree AV block - Trop 115, 99 at OSH (ULN 60); trending HS troponin here. - Bedside TTE at OSH concerning for acutely reduced EF (?20-30% when previously normal) - Repeat TTE today. - Holding heparin gtt today. - C/w home asa 81 - C/w home atorvastatin - C/w metoprolol - C/w home losartan - NPO for left and right heart catheterization today. ?? # HTN - C/w home losartan ?? # JOSEPH - C/w home CPAP ?? # Dilated ascending thoracic aorta - 4.6 cm per OSH report, recommended follow up ?? # Hx of Tobacco Use - Recently stopped smoking - Declines NRT - C/w home Wellbutrin - Albuterol PRN ?? #Routine Diet: NPO diet (Give Meds) DVT Prophylaxis: heparin gtt GI Prophylaxis: not indicated Code Status: Attempt Cardiopulmonary Resuscitation - Inpatient Dispo: Pending clinical course Domo Damon MD, PGY-1 Cardiology S1 (Pager [phone]) 09/03/2022 Associated attestation - Pasha Guillen MD - 09/03/2022 11:22 AM EDT Please see my addendum in the H&P dated 09/02/2022. Pasha Guillen MD, MPH * Reynaldo Stack MD - 09/03/2022 7:18 AM EDT Images from the original note were not included. Formerly [facility] [place] [id number] SAME DAY CARDIAC CATHETERIZATION LAB H&P ID: Conner Bridges is a 62 y.o. male with past medical history of JOSEPH, HTN, Aortic Stenosis with bicuspid aortic valve , Smoker who presented to [facility] for chest pain found to have elevated troponin consistent with type I vs II NSTEMI (plaque rupture less likely, possibly related to aortic stenosis). We are referring for diagnostic coronary angiogram and RHC. Brief HPI: He presented to [facility] for feeling unwell for several days with accompanying right sided chest discomfort. He reports a month or two of progressive SOB. 2-3 days ago, it was to the point of where he could not lay flat which brought him in. He was hemodynamically stable on arrival to [facility]. ECG was non-ischemic. HsTroponin 115 peak. ProBNP 2300. TTE performed in the ED possibly noted LVEF 20-30% which was newly decreased from 2021. Apparently his old echo in 2021 noted at least moderate to severe aortic stenosis with MG 35 mmHg. Leo hillman took the call on him overnight and recommended heparin for now and to hold P2Y12 inhibitor. Bedside TTE performed by overnight fellow thought to beLVEF ~ 40% with apical and lateral WMA. Conner Bridges has no planned upcoming surgeries. No recent or ongoing bleeding events. No black stools. Physical Exam: BP 137/59 (BP Location (NBP): Right arm, Patient Position: Lying) Pulse 52 Temp 36.4 ??C (97.5 ??F) (Oral) Resp 17 Ht 170.2 cm (5' 7) Wt 101.2 kg (223 lb 1.7 oz) SpO2 99% BMI 34.94 kg/m?? Gen: Pleasant male in no apparent distress, able to lay flat. Cardiac: Regular rate, 3/6 crescendo - decrescendo murmur heard best at RUSB with preservation of S2. normal character and amplitude, no murmurs, rubs, or gallops. JVP mid neck. Pulm: Clear to auscultation bilaterally, no increased work of breathing. Ext: Palpable radial and femoral pulses bilaterally. Palpable DP pulses bilaterally. Neuro: Grossly normal neurologic exam without apparent focal deficit. ASA: 3: Patient with severe systemic disease Mallampati: III: only the base of the uvula can be seen Recent Labs: Recent CBC: Recent Labs 09/03/22 0600 09/03/22 0006 WBC 9.1 10.0* HGB 15.4 15.0 HCT 46.7 45.2 PLATELET 171 160 Recent BMP: Recent Labs 09/03/22 0006 NA 143 K 4.1 CL 107 CO2 24 BUN 16 CREATININE 0.81 EC-Lead ECG reviewed in same day notable for sinus rhythm, LVH with LV strain. Previous cardiac diagnostic studies: Coronary CT ([facility] 2020): Left main coronary artery: There is a small amount of calcium along the underside of the left main coronary artery, but no discernible narrowing is present in the left main is short. Left anterior descending: There is soft plaque with less than 25% narrowing in the proximal LAD. The first diagonal is a medium size vessel with minor irregularities. The second diagonal is large with minor irregularities, but no measurable narrowing. Small and distal to the second diagonal origin,the left anterior descending is narrowed less than 50% by hard plaque. The distal LAD is large without measurable narrowing. Apparent filling defect in the distal LAD is likely due to to motion artifact. Left circumflex: The first and second obtuse marginal branches are small and the second is very short and may be occluded. M3 is medium size vessel. The mid circumflex is narrowed less than 50% by hard plaque. Right coronary: The RCA is dominant with small distal vessels. Minor luminal irregularities with less than 25% narrowing. IMPRESSION 1. Coronary atherosclerotic disease without evidence of significant obstruction except for possibleocclusion of a small second obtuse marginal. 2. Stenotic, bicuspid aortic valve. 3. Left ventricular hypertrophy and dilatation General consent statement: The indications, expected benefits, and potential risks of heart catheterization were reviewed in detail with the patient. The potential for , heart attack, stroke, kidney failure, hemorrhage, allergic reaction, vascular complications and infection were reviewed in detail. The possibility of stenting and other percutaneous intervention, with associated risk, was reviewed. The possible need for emergent coronary artery bypass surgery was reviewed. Alternatives were discussed and the patient's questions were answered in full. Following this discussion, the patient consented to the procedure and signed a form attesting to this, which is in the chart. Patient is full code. Plan: -plan for R + [facility] for assess for coronary disease and filling pressures in setting of severe bicuspid aortic stenosis -consent signed Reynaldo Stack MD Care Coordination Manager 09/03/2022 * Acacia Hernandez RN - 09/03/2022 5:42 AM EDT Patient arrived from outside hospital around 2200. Patient ambulates independently, reported no pain or discomfort upon arrival. Patient was on heparin gtt at 1400 units/hr. Patient had echocardiogram at bedside, labs taken too. Patient requested use of oxygen to help SOB. Patient is on 1 liter NC. Patient currently on IV heparin 1000 units/hr (see MAR). Patient is NPO for possible procedure. documented in this encounter H&P Notes * Iliana Cuevas MD - 09/02/2022 9:38 PM EDT Images from the original note were not included. Cardiology H&P Patient info: Name: Conner Bridges : 1960 PCP: Unknown PCP phone number: None Date of Admission: 09/02/2022 ( Hospital Day 1 day ) Attending:Annamarie Mendoza MD ID: Conner Bridges is a 62 y.o. male w/ PMH significant for JOSEPH, HTN, , tobacco use who presented as a transfer from [facility] with chest pain, found to have elevated Trop and acutely reduced ejection fraction. Past Medical History: No date: HTN (hypertension) No date: Pleuritic chest pain No date: Sleep apnea Comment: questionable, sleep center scheduled for 07/09/15 Patient Active Problem List Diagnosis ??? ','Aortic stenosis ??? Sleep apnea Overview Note: questionable, sleep center scheduled for 07/09/15 ??? Pleuritic chest pain ??? HTN (hypertension) HPI: Patient states that he initially presented to the hospital at around 3 AM this morning due to several days of dyspnea and sensation that he is hyperventilating. Patient states that it is worse when he is laying down and has prevented him from sleeping for the past several days. He denies PND. He does report history of JOSEPH for which he uses CPAP. He reports associated right-sided chest tightness that has come on over the past several days and is worse when he is lying down. He also for intermittent headaches and lightheadedness. He otherwise denies any fevers, chills, cough, sore throat, nausea, vomiting, abdominal pain, diarrhea, constipation, or urinary symptoms. He does state that he had a GI illness about a month ago consisting of nausea and diarrhea, now resolved. On initial sedation to OSH, patient was afebrile, pulse 60, respiratory rate 22, BP 150/55, O2 saturation 96% room air. EKG showed sinus bradycardia with prolonged [place] interval and possible LBBB. CTA showed mild interstitial edema, no evidence of thoracic aortic aneurysm or dissection, marked aorticvalvular calcification dilated ascending thoracic aorta (max 4.6cm, follow up recommended), and stable pulmonary nodules measuring less than 6 mm. Labs were significant for NT-proBNP 2351 (ULN 300), Trop I 115, 99 on repeat (ULN 60). Bedside TTE was concerning for LVEF ~20-30%, newly decreased [id number], when he had a normal LVEF and moderate to severe (mean gradient 35). Review of Systems (positives in bold) General: chills, fatigue, fever or night sweats Eye: blurry vision, double vision, loss of vision or photophobia HENT: headaches, sore throat or vertigo Heme/Lymph: Bleeding/bruising, blood clots, jaundice, pallor or swollen lymph nodes Resp: cough, hemoptysis, orthopnea, shortness of breath or wheezing Cardio: chest pain, dyspnea on exertion, edema, loss of consciousness, palpitations, paroxysmal nocturnal dyspnea or shortness of breath Gastro: abdominal pain, blood in stools, constipation, diarrhea, heartburn, hematemesis, melena or nausea/vomiting : dysuria, hematuria or urinary frequency/urgency MSK: joint pain, joint stiffness, joint swelling, muscle pain or muscular weakness Neuro:dizziness, gait disturbance, impaired coordination/balance, memory loss, numbness/tingling, seizures, speech problems, tremors or visual changes Derm: lumps or rash PMH Past Medical History: Diagnosis Date ??? HTN (hypertension) ??? Pleuritic chest pain ??? Sleep apnea questionable, sleep center scheduled for 07/09/15 [facility] No past surgical history on file. Family History No family history on file. Social History Quit smoking ~2 weeks ago. Occasional social alcohol use ~once weekly, will drink 5-6 beers. Denies any history of withdrawal symptoms. Social History Socioeconomic History ??? Marital status: Single Spouse name: Not on file ??? Number of children: Not on file ??? Years of education: Not on file ??? Highest education level: Not on file Occupational History ??? Not on file Tobacco Use ??? Smoking status: Not on file ??? Smokeless tobacco: Not on file Substance and Sexual Activity ??? Alcohol use: Not on file ??? Drug use: Not on file ??? Sexual activity: Not on file Other Topics Concern ??? Not on file Social History Narrative ??? Not on file Social Determinants of Health Financial Resource Strain: Not on file Food Insecurity: Not on file Transportation Needs: Not on file Physical Activity: Not on file Housing Stability: Not on file Allergies: No Known Allergies Objective: Vitals Last value Range last 24 hrs Temperature Temp: 36.6 ??C (97.9 ??F) Temp: [36.6 ??C (97.9 ??F)] Heart Rate Heart Rate: 57 Heart Rate: [57] Blood Pressure BP: 152/60 BP: (152)/(60) Art Line BP BP (Arterial Line): -- MAP (NBP): [83 mmHg] Respiratory Rate Resp: 18 Resp: [18] SpO2 SpO2: 98 % SpO2: [98 %-100 %] Oxygen Delivery Oxygen Therapy O2 Device: None (Room air) Reason for Oxygen: Patient currently on room air Intake/Output Summary (Last 24 hours) at 09/03/202255 Last data filed at 09/02/20222142 Gross per 24 hour Intake -- Output 1 ml Net -1 ml Patient Vitals for the past 168 hrs: Weight 09/02/222142 101.2 kg (223 lb 1.7 oz) Admit wt: 101.2 kg Physical Exam: Gen: in bed in NAD. HEENT: anicteric, EOMI intact, PERRL, MMM. CV: RRR, systolic murmurs, no rubs/gallops Resp: CTAB, no crackles/wheezes/ronchi, normal work of breathing Abd: normal bowel sounds, soft, non-tender to palpation, no rebound or guarding Ext: 2+ distal pulses, no pedal edema Neuro: no focal deficits noted, moves all extremities spontaneously Psych: cooperative. Skin: no rashes, lesions, or ulcerations noted Labs: Recent Labs 09/03/225 WBC 10.0* HGB 15.0 HCT 45.2 PLATELET 160 MCV 91.9 Recent Labs 09/03/225 NA 143 CL 107 CO2 24 K 4.1 MAGNESIUM 0.76 PHOS 3.7 CALCIUM 9.2 9.2 BUN 16 CREATININE 0.81 LFTs Recent Labs 09/03/225 PROT 6.6 ALBUMIN 4.1 AST 13 ALT 16 ALKPHOS 59 BILITOT 1.1 BILIDIR 0.3 Coags Recent Labs 09/03/225 INR 1.1 PT 12.9* PTT 33 Cardiac Enzymes Recent Labs 04/26/23 0006 PROBNP 1,871* Endocrine Recent Labs 09/03/22 0006 TSH 1.74 No results for input(s): POCGLU in the last 168 hours. Heme No results for input(s): LDH, HAPTOGLOBIN, URICACID in the last 168 hours. ABG (Arterial Blood Gas) No results found for: PHART, PO2ART, RPU8BRE, DTV9FLV Microbiology: Microbiology Results (Last 30 days) No results found for the last 720 hours. Imaging: No results found for this visit on 09/02/22. Assessment & Plan: Conner Bridges is a 62 y.o. male w/ PMH significant for JOSEPH, HTN, , tobacco use who presented as atransfer from [facility] with chest pain, found to have elevated Trop and acutely reduced ejection fraction. Presentation concerning for NSTEMI vs. Worsening . Heparin gtt was started at OSH, which we will continue for now. Bedside echo revealed LVEF 46% with wall motion abnormalities of the apex and lateral hilliard, moderate to severe . Will proceed with formal echocardiogram in the AM. Given echo findings so far, he will likely need cardiac cath and consideration of valve replacement pending further work-up. # Possible NSTEMI # Aortic stenosis # First degree AV block - Presentation concerning for progression of vs. NSTEMI - EKG with sinus estefania, [place] 217 ms at OSH - Trop 115, 99 at OSH (ULN 60) - Bedside TTE at OSH concerning for acutely reduced EF (?20-30% when previously normal) - Will repeat trops, EKG, CXR, TTE - C/w heparin gtt initiated at OSH - C/w home asa 81 - C/w home atorvastatin - C/w metoprolol - C/w home losartan # HTN - C/w home losartan # JOSEPH - C/w home CPAP # Dilated ascending thoracic aorta - 4.6 cm per OSH report, recommended follow up # Hx of Tobacco Use - Recently stopped smoking - Declines NRT - C/w home Wellbutrin - Albuterol PRN #Routine Diet: NPO diet (Give Meds) DVT Prophylaxis: heparin gtt GI Prophylaxis: not indicated Code Status: Attempt Cardiopulmonary Resuscitation - Inpatient Dispo: Pending clinical course Iliana Cuevas MD Internal Medicine, PGY-2 Associated attestation - Pasha Guillen MD - 09/03/2022 11:21 AM EDT CARDIOLOGY ATTENDING NOTE Patient: Conner Bridges Date of Service: 09/03/2022 Date of Admission: 09/02/2022 Length of Stay Hospital Day 1 day Please see the above note by Dr. Cuevas for details. I have interviewed and examined the patient independently and I concur with the assessment and plan. The case was discussed on cardiology rounds and we reviewed the plan of care with the team and patient. n addition, I certify that I am a [facility] credentialed attending provider with admitting privileges and that the patient meets or has met medical necessity to require an inpatient IPI level of care meeting a minimum of two midnights. Mr. Bridges is a very pleasant 62 year old man with known bicuspid aortic valve who presented with worsening shortness of breath. TTE with LVEF 44% with multivessel WMA with mixed aortic valve diseasewith moderate-severe and moderate AI, as well as dilated aortic root and ascending aorta. We will next plan to obtain coronary angiography and RHC and then consequent likely discussion withCT surgery regarding his mixed valvular disease with aortopathy and probable CAD. Rest per Dr. Cuevas. Pasha Guillen MD, MPH, RPVI, FACC, FAADAN, LIZETH, [facility] Pager [phone] Cardiovascular Load TesterFront End Managerauto mechanic [place] [phone] documented in this encounter Miscellaneous Notes * Plan of Care - Jesica Ashby RN - 09/04/2022 2:47 AM EDT OUTCOME EVALUATION NOTE: OUTCOME SUMMARY: A&Ox4. Denies any CP or SOB. Using 2L NC at night instead of CPAP machine. Ambulates to bathroom as needed. PLAN MOVING FORWARD: Discharge planning as appropriate. INDIVIDUALIZED FALL PREVENTION INTERVENTIONS: Patient-specific fall risk factors per assessment: [current deficits]: Lighting adjusted, clutter free environment, personal items within reach. Assistance [level of assistance required for transfers and ambulation]: Independent Supervision [direct monitoring required during toileting and ADLs]: Independent Surveillance [continuous indirect monitoring]: Telemetry Patient-specific fall prevention interventions for sensory deficits provided, if applicable: NA CPG GOAL OUTCOME EVALUATION: Ongoing * Consult Note - Mono Chavarria MD - 09/03/2022 2:14 PM EDT Cardiac Surgery Consultation Note I have met and examined the pt. We have discussed his aortic stenosis as well as his moderate sizedaorta. He was due for a cath which is now tomorrow. We will meet again (as well as his who waspresent for the discussion) following his cath. The tentative plan will be a brief return home then return for surgery. Conner Stiles Yuliana is seen at the request of Dr. Guillen for the evaluation of . HPI: He is a 62 y.o. year old [...] Hep gtt was started. He is already on asa/ statin. 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 No h/o liver disease. Creatinine is 0.81. Being diuresed on IV lasix. Not on plavix. No stroke history. Not diabetic. Review of Symptoms: Constitutional - No weakness, fatigue, fevers, weight change. HEENT - No visual changes; no hearing changes; no recent URI symptoms. Neck - No new pain, limitation of motion. Cardiovascular -As per HPI. Pulmonary - No dyspnea, cough, bronchitis, pneumonias. GI - No difficulty swallowing, abdominal pain, constipation, diarrhea, melena, or BRBPR. - No frequency, nocturia, dysuria. Musculoskeletal - No muscle pain, No new limitation of motion. Extremities - No edema, no varicosities. Neuro - No confusion, syncope, paresthesias. Hematologic - No bruising, excessive bleeding, previous bleeding issues. Problem List: Patient Active Problem List Diagnosis ??? Aortic stenosis ??? Sleep apnea questionable, sleep center scheduled for 07/09/15 ??? Pleuritic chest pain ??? HTN (hypertension) Past Medical History: Past Medical History: Diagnosis Date ??? HTN (hypertension) ??? Pleuritic chest pain ??? Sleep apnea questionable, sleep center scheduled for 07/09/15 Denies: CVA, TIA, thyroid disease, asthma, emphysema, diabetes, cancer Past Surgical History: No past surgical history on file. Denies previous chest surgery, vein, or or other vascular surgery Social History: Social History Social History Narrative ??? 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 Meds Prior to Admission: Medications Prior to Admission Medication Sig Dispense Refill Last Dose ??? aspirin 81 mg Tablet, Delayed Release (E.C.) Take 81 mg by mouth daily. Unknown ??? albuterol (PROVENTIL HFA;VENTOLIN HFA;PROAIR) 90 mcg/actuation HFA Aerosol Inhaler Inhale 2 puffs into the lungs every 4 hours as needed for Wheezing. Use with spacer Unknown ??? buPROPion (WELLBUTRIN) 100 mg Tablet Take 100 mg by mouth 2 times daily. Unknown ??? lisinopril (PRINIVIL;ZESTRIL) 5 mg Tablet Take 5 mg by mouth daily. Unknown ??? fish oil-omega-3 fatty acids 1,000 mg Capsule Take 2 g by mouth daily. Unknown ??? diclofenac (CATAFLAM) 50 mg tablet 50MG = 1 Tablet(s), PO, Three times daily Unknown Current Meds: Scheduled Meds: ??? aspirin EC 81 mg Oral Daily ??? atorvastatin 20 mg Oral QPM ??? losartan 100 mg Oral Daily ??? metoprolol succinate XL 25 mg Oral Daily ??? psyllium 1 packet Oral BID ??? sodium chloride 0.9 % (flush) 5 mL Intravenous BID ??? sodium chloride 0.9 % (flush) 5 mL Intravenous BID Continuous Infusions: PRN Meds:.albuteroL, sodium chloride 0.9 % (flush), lidocaine, nitroGLYcerin, sodium chloride 0.9 %(flush), lidocaine, acetaminophen Allergies: No Known Allergies Physical Exam: BP 118/83 (BP Location (NBP): Left arm, Patient Position: Lying) Pulse 55 Temp 36.4 ??C (97.5 ??F) (Oral) Resp 19 Ht 170.2 cm (5' 7) Wt 101.2 kg (223 lb 1.7 oz) SpO2 94% BMI 34.94 kg/m?? General: Well appearing in no acute distress. Neuro: Conversant. Alert and oriented x 3. Grossly intact with grossly normal strength. Skin: Warm, dry, and well perfused. Scars consistent with history. Neck: Trachea ML. No JVD. No carotid bruits. Heart: RR, S1/S2. Sinus on tele. Lungs: LS present bilaterally. No W/R/C. Abdomen: Soft, NT/ND. BS present. No masses noted. Extremities: Full range of motion; no clubbing, cyanosis, or edema. No significant varicosities. Diagnostics: Lab Results Component Value Date WBC 9.1 09/03/2022 RBC 5.07 09/03/2022 HGB 15.4 09/03/2022 HCT 46.7 09/03/2022 PLATELET 171 09/03/2022 Recent Labs 09/03/22 0006 INR 1.1 Lab Results Component Value Date NA 143 09/03/2022 K 4.1 09/03/2022 CL 107 09/03/2022 CO2 24 09/03/2022 BUN 16 09/03/2022 CREATININE 0.81 09/03/2022 CXR: pending CATH: pending ECHO: Interpretation Summary -Left ventricle is severely dilated. Wall thickness is mildly increased. Left ventricular systolic function is mildly reduced. The left ventricular ejection fraction is 44% by Ramirez's biplane. There are multivessel segmental wall motion abnormalities, including akinetic segments at the apex and in the lateral wall. -The right ventricle is of normal size. Right ventricular systolic function is normal. Right ventricular systolic pressure is 48 mmHg. -Both atria are moderately dilated. -The aortic valve is not well visualized but may be bicuspid. There is significant mixed aortic valve disease, including moderate to severe aortic stenosis and moderate regurgitation. -The aortic root is dilated (4.6 cm). The ascending aorta is dilated (4.4 cm). -See report for additional findings. No comparison study is available. ?? Assessment and Plan: 62 y.o. year old PMH of JOSEPH on CPAP, HTN, , 5 previous hernia repairs, current tobacco use who recently presented to an OSH for worsening SOB/lightheadedness occurring at rest.TTE showed reduced EF of around 40-45% and mod-severe mean gradient 36, mod AI, aortic dilatation of 4.6cm. 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 Cardiac cath pending today. -Please obtain CXR and Cardiac Cath -No further Plavix or Prasugrel if proceeding forth with surgery. -Continue with medical management/optimization. -Surgical candidacy, timing, and/or further recommendations will be determined by the Attending Surgeon. DW Dr. Chavarria. Thank you very much for the opportunity to be involved in the care of Conner Bridges. Signed: CHRISTIN ZARATE PA-C [facility] Section of Cardiac Surgery Date: 09/03/2022 * Initial Assessments - Margret Polanco RN - 09/03/2022 10:12 AM EDT Office of Care Management Initial Assessment Margret Polanco RN reviewed record and discussed patient with Care Team. Source of Information: Team, bedside nurse, medical record, and Patient Introduced self/reviewed role; services accepted. Reason for Hospitalization: chest pain, shortness of breath Covid Vaccination Status: 1st & 2nd dose Last COVID test: Past medical History: Past Medical History: Diagnosis Date ??? HTN (hypertension) ??? Pleuritic chest pain ??? Sleep apnea questionable, sleep center scheduled for 2/29/16 Hospitalizations Within the Past 30 Days: no previous admission in last 30 days Current Decision-Making Capacity: Self If AD's have not been completed the following surrogate would be surrogate decision maker per ID surrogate decision making law. (Only good for 180 days) Any patient receiving care in [place] must abide by ID law. The hierarchy for surrogate decision making [...] (i) The agent with financial power of sports journalist or a conservator appointed in accordance with RSA 464-A. (j) The guardian of the patient???s estate. Advance Care Planning: Attempt Cardiopulmonary Resuscitation - Inpatient <no information> -Advanced Directive: No, need to discuss Current Coping/Education/Information Needs: denied Current Functional Ability: Independent Functional Status Prior to Admission: Independent Prior ADLs & IADLs: Independent with all ADLs & IADLs Home Environment: Others in the home: significant other. Current Living Arrangements: home/apartment/condo. Accessibility Concerns:no concers-independent at baseline. Resource / Environmental Concerns: Resource/Environmental Concerns: none Current DME: none Home Address confirmed as: [address] [place] [phone] Social & Family Supports: All names listed below confirmed with patient as current and correct Extended Emergency Contact Information Primary Emergency Contact: Korina Decker Address: [address] [place] [phone] [facility] Mobile Relation: Pamela Current Care Provided by: self Provides Primary Care For: no one Caregiver if needed: significant other Quality of Family relationships: helpful, involved Community Resources being provided currently: none Behavioral Health History: denies Substance Use/Abuse listed: Social History Tobacco Use Smoking Status Not on file Smokeless Tobacco Not on file 0 No problems reported 1-2 Low level 3-5 Moderate level 6-8 Substantial level 9- 10 Severe level 0 to 7 points: Low risk 8 to 15 points: Medium risk 16 to 19 points: High risk 20 to 40 points: Addiction likely Other Pertinent/Service Specific Information: has health insurance-email sent to [employer] to update Health/Prescription Coverage: Primary Insurance: N/A Payor: / Secondary Insurance: N/A ; Prescription Coverage: Yes Preferred Pharmacy: No Pharmacies Listed Status: Patient is a : No Primary Care Provider confirmed: Tono Montero MD [phone] Patient/Caregiver Goals of Treatment: Potential Needs for Transition of Care: none Agency Referrals: Not Applicable Transportation: no concerns Transportation Anticipated: family or friend will provide Concerns to be Addressed: no discharge needs identified Assessment: Patient is admitted to cardiology service for Aortic stenosis [I35.0]. Patient lives with his s/o in a 3 story home with a flight of stairs to enter main living space. 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 Plan: Plan for Ischemic evaluation/cath (per morning IDR report and MD notes). Discharge plan pending patient's hospital course. Plan for patient to discharge later this week with family supports in place via private car (family transport) when medically ready. Per cardiac pathway-no services anticipated for discharge A member of the Care Management team will continue to monitor progress, follow for continuity of care and assist with transition of care planning. Margret Polanco RN, CM Pager-[phone] * Consult Note - Thom Palma RCP - 09/02/2022 11:20 PM EDT Respiratory Therapy NIV Note NIV Settings: NIV Mode: CPAP (V30) PEEP/CPAP (cm H2O): 10 cm H20 NIV Measurements: Resp: 17 SpO2: 99 % Skin Assessment: WDL Assessment: Paged to bedside to assist set-up of nocturnal NIV Per pt utilizes CPAP: 10 at home with full face mask -V30 placed at bedside, pt declined use tonight Plan: Continue to support pt with CPAP for JOSEPH Thom Palma RCP documented in this encounter Plan of Treatment Scheduled Orders Name Type Priority Associated Diagnoses Orde r Schedule EKG 12 Lead ECG Routine Hypertension, unspecified type One Time for 1 Occurrences starting 09/02/2022 until 09/02/2022 documented as of this encounter Procedures Procedure Name Priority Date/Time Associated Diagnosis Comments HEMOGRAM STAT 09/04/2022 10:31 AM EDT DIFFERENTIAL, AUTOMATED STAT 09/05/19 10:31 AM EDT HC CBC,PLT & AUTO DIFF STAT 10:31 AM EDT HC MAGNESIUM, SERUM STAT 09/04/2022 1 0:31 AM EDT HEMOGLOBIN A1C STAT 09/04/2022 10:31 AM EDT BASIC METABOLIC PANEL STAT 09/04/2022 10:31 AM EDT CARDIAC CATHETERIZATION Routine 09/05/19 9:31 AM EDT HC MAGNESIUM, SERUM Routine 09/03/2022 8 :52 PM EDT BASIC METABOLIC PANEL Routine 09/03/2022 8:52 PM EDT HC TROPONIN T STAT 09/03/2022 9:43 AM EDT ECHO COMPLETE Routine 09/03/2022 8:44 AM EDT Hypertension, unspecified type HC TROPONIN T STAT 09/03/2022 6:00 AM EDT HEPARIN (UNFRACTIONATED) LEVEL Timed 09/03/2022 6:00 AM EDT HEMOGRAM Routine 09/03/2022 6:00 AM EDT DIFFERENTIAL, AUTOMATED Routine 09/04/19 6:00 AM EDT HC CBC,PLT & AUTO DIFF Routine 6:00 AM EDT HC VENIPUNCTURE Routine 09/03/2022 6:00 AM EDT URINALYSIS WITH REFLEX CULTURE Routine 09/03/2022 1:43 AM EDT HEMOGRAM Routine 09/03/2022 12:06 AM EDT DIFFERENTIAL, AUTOMATED Routine 09/04/19 12:06 AM EDT HC PARTIAL THROMBOPLASTIN TIME Routine 09/03/2022 12:06 AM EDT PROTHROMBIN TIME Routine 09/03/2022 12:0 6 AM EDT HC CBC,PLT & AUTO DIFF Routine 12:06 AM EDT TSH Routine 09/03/2022 12:06 AM EDT HC PHOSPHORUS, SERUM Routine 09/03/2022 12:06 AM EDT PRO-BRAIN NATRIURETIC PEPTIDE Routine 09/03/2022 12:06 AM EDT HC MAGNESIUM, SERUM Routine 09/03/2022 1 2:06 AM EDT CALCIUM Routine 09/03/2022 12:06 AM EDT HEPATIC FUNCTION PANEL Routine 12:06 AM EDT BASIC METABOLIC PANEL Routine 09/03/2022 12:06 AM EDT EKG 12-LEAD Routine 09/02/2022 9:48 PM EDT Pleuritic chest pain documented in this encounter Results * Hemoglobin A1c (09/04/2022 10:31 AM EDT) Hemoglobin A1c 5.4 4.3 - 5.6 % [facility] Comment: Reference Range: 4.3 - 5.6% 5.7 - 6.4% - Increased Risk of Developing Diabetes Mellitus >= 6.5% - Consistent with diagnosis of Diabetes Mellitus In the absence of hyperglycemia (i.e. plasma glucose > 200 mg/dL) or classic symptoms of hyperglycemia a repeat measurement of HbA1c should be performed on a separate sample to confirm the diagnosis. Diagnosis and Classification of Diabetes Mellitus, Diabetes Care 2013; 36: Suppl. 1, S67-74 Estimated Average Glucose 109 mg/dL [facility] Comment: eAG equivalents for HbA1c percentages: HbA1c(%) ?eAG(mg/dL) 6.0 ?126 6.5 ?140 7.0 ?154 7.5 ?169 8.0 ?183 8.5 ?197 9.0 ?212 9.5 ?226 10.0 ? 240 Limitations: The eAG calculation has not been validated on women, individuals below 18 years old and above 70 years old, and individuals with hemoglobinopathies. Additional resources are available on the ADA website. Ben HODGE, Bret J, Alcides R, et al. ??Translating the A1C assay into estimated average glucose values. ??Diabetes Care 2008:31(8):3993-1454. Blood Venous Draw / Unknown 09/04/2022 10:31 AM EDT 09/04/2022 10:52 AM EDT Narrative Resulting Agency Comment Spec In Lab Reynaldo Stack MD [place] [address] * Differential, Automated (09/04/2022 10:31 AM EDT) Neutrophil % 57.8 % [facility] Neutrophil Absolute 5.62 1.70 - 6.10 x10(3)/[facility] Lymph % 27.8 % [facility] Lymphocytes Abs 2.7 0.9 - 3.2 x10(3)/[facility] Monocyte % 9.1 % [facility] Monocyte Abs 0.9 0.3 - 0.9 x10(3)/[facility] Eos % 4.2 % [facility] Eosinophils Abs 0.4 0.0 - 0.4 x10(3)/[facility] Basophil % 0.7 % [facility] Baso Absolute 0.1 0.0 - 0.1 x10(3)/[facility] Immature Gran % 0.40 % [facility] Comment: Immature granulocytes(IG's)percentage and absolute count will include metamyelocytes, myelocytes, and promyelocytes. Blood smears from CBCs yielding IG's will be scanned manually for concordance. If this scan disagrees with the automated IG or if promyelocytes are noted, a manual differential will be performed. Immature Gran Absolute 0.04 0.00 - 0.04 x10(3)/[facility] Blood 09/04/2022 10:3 1 AM EDT 09/04/2022 10:51 AM EDT Narrative Resulting Agency Comment Spec In Lab Francisco Horan MD [place] [address] * (ABNORMAL) Hemogram (09/04/2022 10:31 AM EDT) White Blood Cell 9.7(H) 4.0 - 9.5 x10(3)/mc L [facility] Red Blood Cell 5.36 4.58 - 5.54 x10(6)/mc L [facility] Hemoglobin 16.1 13.7 - 16.5 g/dL [facility] Hematocrit 49.6(H) 40.5 - 48.5 % [facility] Mean Cell Volume 92.5 82.9 - 93.1 fL [facility] Mean Cell Hemoglobin 30.0 27.5 - 32.1 pg [facility] Mean Cell Hemoglobin Concentration 32.5 32.0 - 35.7 g/dL [facility] Platelet 178 145 - 357 x10(3)/mc L [facility] RDW Standard Deviation 43.1 36.0 - 45.0 fL [facility] RDW coefficient of variation 12.8 11.4 - 13.8 % [facility] Mean Platelet Volume 9.8 7.6 - 12.9 fL [facility] NRBC% auto 0.0 % [facility] NRBC Absolute 0.000 0.000 - 0.000 x10(3)/mc L [facility] Blood 09/04/2022 10:3 1 AM EDT 09/04/2022 10:51 AM EDT Narrative Resulting Agency Comment Spec In Lab Francisco Horan MD HEMATOLOGY ORDERABLE S Performing Organization Address City/[facility]/ZIP Co de Phone Number [facility] [place] [address] * Magnesium (09/04/2022 10:31 AM EDT) Magnesium 0.87 0.69 - 1.07 mmol/L [facility] Blood 09/04/2022 10:3 1 AM EDT 09/04/2022 10:51 AM EDT Narrative Resulting Agency Comment Spec In Lab Pasha Guillen MD CHEMISTRY ORDERABLES Performing Organization Address City/[facility]/ZIP Co de Phone Number [facility] [place] [address] * (ABNORMAL) Basic Metabolic Panel (non-fasting) (09/04/2022 10:31 AM EDT) Glucose 102 65 - 199 mg/dL [facility] Comment:Diabetes: >=200 mg/d L plus symptoms Blood Urea Nitrogen 16 10 - 20 mg/dL [facility] Creatinine 0.79(L) 0.80 - 1.50 mg/dL [facility] Sodium 139 135 - 145 mmol/L [facility] Potassium 4.7 3.5 - 5.0 mmol/L [facility] Comment: result rechecked-EWR Please note: ??Patients with WBC >100,000 may have falsely elevated Potassium levels. ??For accurate Potassium quantification in these patients send serum separator tube (gold top) for subsequent determinations. ??Contact the Clinical Chemistry Laboratory if there are any questions. Chloride 105 98 - 107 mmol/L [facility] Carbon Dioxide 25 22 - 31 mmol/L [facility] Anion Gap 9 5 - 15 mmol/L [facility] Calcium 9.0 8.5 - 10.5 mg/dL [facility] Est Glomerular Filtration Rate 102 >=60 mL/min/1. 73 m?? [facility] Comment: This patient's estimated GFR was [...] and symptoms in addition to eGFR. Blood 09/04/2022 10:3 1 AM EDT 09/04/2022 10:51 AM EDT Narrative Resulting Agency Comment Spec In Lab Pasha Guillen MD CHEMISTRY ORDERABLES [facility] [place] [address] * CARDIAC CATHETERIZATION (09/04/2022 9:31 AM EDT) Anatomical Region Laterality Modality Other Narrative 09/04/2022 1:22 PM EDT ?[facility] ? Cardiac Catheterization/Intervention Report ? Patient Name: Yuliana, Conner ? Procedure Date: 09/04/2022 ? A #: [id number] ? Primary Physician: Young, Omar N ? Case #: [id number] ? File Name: [id number] ? Catheterization Order Number: [id number] ? [facility] ? Final Report [place], [place] ? Patient Name: ? Conner Yuliana ?ID#: ?[id number] ? : ?1960 ? Procedure Date: ? September 04, 2022 ? Case #: ? [id number] ? Room: ? 5 ? Case Physician: ? Omar Saini M.D. ?Start: ?08:39 ?Fellow: ? Marquis Ramirez M.D. ?Admission: ??09/02/2022 ?aJson Rodríguez Jr., M.D. ? Referring Physician: ??Mitchell Parsons M.D. ? Procedures: ?* Coronary Angiography ?* Right Heart Catheterization ?* Oximetry ? History ?Conner Bridges is a 62 year old man. He has hypertension and a family ?history of coronary artery disease. The patient's smoking status is ?Former. He has hypercholesterolemia managed with lipid therapy. The ?patient also has an ascending aortic aneurysm. Prior to the initiation of ?this procedure, the patient was designated as ASA Class III. The CSHA ?clinical frailty scale is 3: Managing Well. ? Diagnostic Tests: ?Prior Coronary Angiography: ? LV ejection fraction within 6 months is 44%. ?Electrocardiography: ? EKG was assessed by ECG. EKG was Abnormal. EKG showed other ? abnormality. ?Stress or Imaging Studies: ? A cardiac CT angiogram was performed on 12/11/2020 and showed ? non-obstructive CAD. ?Medications Prior to Procedure: ? Aspirin, Angiotensin II Receptor Luiza, Beta Luiza and Statin. ? Indications for Diagnostic Cath: ?The priority of the diagnostic procedure was Urgent. 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 Chest pain symptom assessment was: ?Atypical Angina. One of the indications for cath is valvular heart ?disease. The patient has Severe aortic stenosis. ? Technique: ?A 6 SLFr sheath was inserted in the right femoral artery utilizing the ?Seldinger technique. A 5 SLFr sheath was inserted in the right median ?antecubital vein utilizing the Seldinger technique. The left coronary ?artery was injected utilizing a 6Fr JL 4 catheter. A 6Fr JR 4 catheter ?was used to inject the right coronary artery. Right heart catheterization ?was performed utilizing a 5Fr BALLOON WEDGE catheter. 5,000 units of ?heparin were administered. A total of 100cc of Omnipaque were opened, ?84cc of Omnipaque were administered and 16cc of Omnipaque were wasted. ?Radiation: Fluoro time was 13.3 minutes, dose area product was 56,400 ?mGYcm2 and air kerma was 519 mGY. See the case log for additional ?details. ?The patient received the following medications prior to and during the ?procedure: ? Unfractionated Heparin. ? Hemodynamics: ?Right Heart Pressures ? Resting: ? Syst Diast ? EDP ?a ?v ? m ?RA ? 11 ? 8 ? 7 ?RV 44 ?10 ?PA 42 ?20 ?24 ?PCW ?29 ?34 ?24 ? Hemodynamic Profile: ?Profile 1 ?CO ? 4.81 ?CI ? 2.27 ?TSR ? 1,114 ?SVR ?998 ?TPR ?399 ?Technique ?Estimated Trace ?Left Heart Pressures ? Resting: ? Syst Diast ? EDP ?a ?v ? m ?Ao 114 ?? 44 ?67 ? Oximetry: ?Location ? %Sat ?Location ?%Sat ?Right Pulmonary ?63.0 ?Rt Rad Art Rm Air ? 91.0 ?Artery ? Coronary Angiography: ?Dominance: Right ?Left Main ? The left main was normal, free of disease. ?Left Anterior Descending ? There was mild diffuse (<=25% stenosis) disease of the entire vessel ? segment of the left anterior descending artery (LAD). ?Left Circumflex ? There was mild diffuse (<=25% stenosis) disease of the entire vessel ? segment of the left circumflex artery (LCX). ?Right Coronary Artery ? There was a 60% eccentric and smooth long segmental stenosis of the ? proximal segment of the right coronary artery (RCA). ??The RCA was ? large. ? There was moderate diffuse (<=50% stenosis) disease of the entire ? vessel segment of the right artioventricular continuation (TOÑITO Cont) ? of the RCA and it was hazy. ??The TOÑITO Cont was small. ? Vascular Access: ?Vascular Access Management: ? Manual Compression of the right median antecubital vein access site ? was performed. ? Mechanical Compression of the right radial artery access site was ? performed. ? Conclusions: ?* One vessel coronary artery disease (RCA) ?* Mild pulmonary hypertension ?* Elevated pulmonary capillary wedge pressure ? Complications/Events: ?The patient had no complications during these procedures. ? Post Procedure Fluid Recommendations: ?IV fluid at 304 mL/hr for 4 hours for a total of 1,216 mL. These ?recommendations are made at the time of the procedure. Patient and ?provider preferences or a changing clinical situation may require ?modification of this regimen. ?The attending physician was present for the entire procedure. ?Dr. Omar Saini M.D. was present during the moderate sedation ?intraservice time as documented by the sedation nurse. ??Case time = 00:48. ?Dr. Omar Saini M.D. performed the coronary angiography, right heart ?catheterization and oximetry. ? Omar Saini, M.D. ? Electronically Signed by: Omar Saini M.D. ? Report Finalized: 09/04/2022 ??13:16 ? Omar Saini MD CARDIAC CATH ORDERAB LES * Magnesium (09/03/2022 8:52 PM EDT) Magnesium 0.79 0.69 - 1.07 mmol/L [facility] Blood 09/03/2022 8:52 PM EDT 09/03/2022 9:11 PM EDT Narrative Resulting Agency Comment Spec In Lab Pasha Guillen MD CHEMISTRY ORDERABLES Performing Organization Address City/State/[facility] Co de Phone Number [facility] [place] [address] * Basic Metabolic Panel (non-fasting) (09/03/2022 8:52 PM EDT) Glucose 159 65 - 199 mg/dL [facility] Comment:Diabetes: >=200 mg/d L plus symptoms Blood Urea Nitrogen 17 10 - 20 mg/dL [facility] Creatinine 0.85 0.80 - 1.50 mg/dL [facility] Sodium 142 135 - 145 mmol/L [facility] Potassium 3.5 3.5 - 5.0 mmol/L [facility] Comment: Please note: ??Patients with WBC >100,000 may have falsely elevated Potassium levels. ??For accurate Potassium quantification in these patients send serum separator tube (gold top) for subsequent determinations. ??Contact the Clinical Chemistry Laboratory if there are any questions. Chloride 104 98 - 107 mmol/L [facility] Carbon Dioxide 25 22 - 31 mmol/L [facility] Anion Gap 13 5 - 15 mmol/L [facility] Calcium 9.5 8.5 - 10.5 mg/dL [facility] Est Glomerular Filtration Rate 99 >=60 mL/min/1. 73 m?? [facility] Comment: This patient's estimated GFR was [...] and symptoms in addition to eGFR. Blood 09/03/2022 8:52 PM EDT 09/03/2022 9:11 PM EDT Narrative Resulting Agency Comment Spec In Lab Pasha Guillen MD CHEMISTRY ORDERABLES [facility] [place] [address] * (ABNORMAL) Troponin (09/03/2022 9:43 AM EDT) Troponin-T, High Sensitivity 46(H) <=22 ng/L [facility] Comment: This patient's troponin T concentration [...] troponin value can be found in the [facility] Test Catalog Troponin - [facility] Test Catalog Reference: Fourth [place] Definition of Myocardial Infarction. Journal of the [place] [employer] 2018;72:1642-1548 Blood 09/03/2022 9:43 AM EDT 09/03/2022 9:57 AM EDT Narrative Resulting Agency Comment Spec In Lab Pasha Guillen MD CHEMISTRY ORDERABLES Performing Organization Address City/State/[facility] Co de Phone Number [facility] [place] [address] * ECHO COMPLETE (09/03/2022 8:44 AM EDT) Anatomical Region Laterality Modality Cardiac Other 09/03/2022 6:53 AM EDT Narrative 09/03/2022 9:19 AM EDT ? Echocardiogram Report Name: CONNER BRIDGES ?Study Date: 09/03/2022 06:53 AMBP: 137/65 mmHg ? Patient Location: [facility] A : 1960 ? Height: 170 cm ? Account: [id number] Age: 62 yrs ? Weight: 101 kg Gender: Male ?BSA: 2.1 m2 Ordering Physician: ANNAMARIE MENDOZA Referring Physician: MITCHELL PARSONS Performed By: GLORIA Ledezma Reason For Study: Hypertension Exam Location: [facility]. Interpretation Summary -Left ventricle is severely dilated. Wall thickness is mildly increased. Left ventricular systolic function is mildly reduced. The left ventricular ejection fraction is 44% by Ramirez's biplane. There are multivessel segmental wall motion abnormalities, including akinetic segments at the apex and in the lateral wall. -The right ventricle is of normal size. Right ventricular systolic function is normal. Right ventricular systolic pressure is 48 mmHg. -Both atria are moderately dilated. -The aortic valve is not well visualized but may be bicuspid. There is significant mixed aortic valve disease, including moderate to severe aortic stenosis and moderate regurgitation. -The aortic root is dilated (4.6 cm). The ascending aorta is dilated (4.4 cm). -See report for additional findings. No comparison study is available. Procedure Complete-[id number]. Satisfactory quality. There is normal sinus rhythm. Ventricular ectopy occurs frequently during the study. Left Ventricle Left ventricle is severely dilated. Wall thickness is mildly increased. There is no ventricular septal defect. Left ventricular systolic function is mildly reduced. The left ventricular ejection fraction is 44% by Ramirez's biplane. There are no segmental wall motion abnormalities. There is akinesis of the lateral wall. There is akinesis of the apical region. Right Ventricle The right ventricle is of normal size. Right ventricular systolic function is normal. Left Atrium The left atrium is moderately dilated. There is no evidence for a patent foramen ovale. Right Atrium The right atrium is moderately dilated. Aortic Valve The aortic valve is not well visualized. The aortic valve may be bicuspid. The aortic valve is moderately thickened. The aortic valve is moderately calcified. There is calcification of the aortic annulus. There is moderate to severe aortic stenosis. The peak instantaneous gradient across the aortic valve is 61 mmHg. The mean gradient across the aortic valve is 36. The highest gradient is obtained from the apical window. The aortic valve area calculated using the continuity equation is 1.0 cm2. The dimensionless index is 0.31. There is moderate aortic regurgitation. The regurgitant jet is directed eccentrically toward the interventricular septum. Mitral Valve The mitral valve is structurally normal. There is no mitral stenosis. There is mild mitral regurgitation. Tricuspid Valve The tricuspid valve is structurally normal. There is no tricuspid stenosis. There is mild to moderate tricuspid regurgitation. Pulmonic Valve The pulmonic valve appears to be structurally normal. There is no valvular pulmonic stenosis. There is trace pulmonic valve regurgitation. Great Arteries The aortic root is dilated. The diameter at the level of the sinuses of Valsalva is 4.6 cm. The ascending aorta is dilated. The maximum diameter of the proximal ascending aorta is 4.4 cm. Venous Inferior vena cava is normal in size. Inferior vena cava collapse greater than 50% with respiration. Pericardium/Pleural There is no pericardial effusion. Epicardial fat is present. Hemodynamics The peak right ventricular systolic pressure is 48 mmHg. The estimated right atrial pressure is 3mmHg. Left ventricular filling pressure is increased. Ejection Fraction ?2D Measurements ? Volumes EF(MOD-bp): 43.7 % ?IVSd: 1.3 cm ? LAV(MOD- bp) Indexed: ?LVIDd: 8.3 cm ?LVIDs: 6.2 cm ?43.2 ml/m2 ?LVPWd: 1.3 cm ?RA A4Cs_phl: 26.5 cm2 ? EDV (MOD-bp) Index: ?LV mass(C)d: 619.9 grams ? 199.6 ?LV mass(C)dI: 293.1 grams/m2 ?? ESV (MOD- bp) Index: ?Ao root diam: 4.6 cm ? 112.4 ?Ao root diam index: 2.2 ?SV(LVOT): 91.8 ml ?asc Aorta Diam: 4.4 cm ?LVOT diam: 2.1 cm ?SI(LVOT): 43.4 ml/m2 Doppler TR max bret: 336.0 cm/sec RVSP(TR): 48.2 mmHg LV V1 VTI: 27.6 cm Ao V2 VTI: 88.9 cm Ao Max: 390.0 cm/sec Ao valve max: 60.9 mmHg Ao valve mean: 35.5 mmHg MV E max bret: 82.5 cm/sec MV A max bret: 30.5 cm/sec MV E/A: 2.7 MV dec time: 0.17 sec Lat Peak E' Bret: 7.9 cm/sec E/ e' (lat): 10.5 Med Peak E' Bret: 6.3 cm/sec E/e' (med): 13.0 E/e' Average: 11.8 FINA(I,D): 1.0 cm2 Dimensionless index Aov: 0.31 I ?WMSI = 1.88 ? % Normal = 38 ?Segments ??Size X - Cannot ?2 - ?4 - ?1-2 ? small Interpret ?1 - Normal ?? Hypokinetic 3 - Akinetic Dyskinetic ?? 3-5 ? moderate 5 - ? 6-14 ?large Aneurysmal ?15-16 ?? diffuse Procedure Note Brody Russell MD - 09/03/2022 Echocardiogram Report Name: YULIANAMICHELLE HARDINE Regino Study Date: 306:53 AMBP: 137/65 mmHg Patient Location: [address] : 1960 Height: 170 cm Account: [id number] Age: 62 yrs Weight: 101 kg Gender: Male BSA: 2.1 m2 Ordering Physician: ANNAMARIE MENDOZA Referring Physician: MITCHELL PARSONS Performed By: GLORIA Ledezma Reason For Study: Hypertension Exam Location: [facility]. Interpretation Summary -Left ventricle is severely dilated. Wall thickness is mildly increased.Left ventricular systolic function is mildly reduced. The left ventricularejection fraction is 44% by Ramirez's biplane. There are multivessel segmental wallmotion abnormalities, including akinetic segments at the apex and in the lateralwall. -The right ventricle is of normal size. Right ventricular systolicfunction is normal. Right ventricular systolic pressure is 48 mmHg. -Both atria are moderately dilated. -The aortic valve is not well visualized but may be bicuspid. There issignificant mixed aortic valve disease, including moderate to severe aortic stenosisand moderate regurgitation. -The aortic root is dilated (4.6 cm). The ascending aorta is dilated (4.4cm). -See report for additional findings. No comparison study is available. Procedure Complete-[id number]. Satisfactory quality. There is normal sinus rhythm.Ventricular ectopy occurs frequently during the study. Left Ventricle Left ventricle is severely dilated. Wall thickness is mildly increased.There is no ventricular septal defect. Left ventricular systolic function ismildly reduced. The left ventricular ejection fraction is 44% by Ramirez'sbiplane. There are no segmental wall motion abnormalities. There is akinesis of thelateral wall. There is akinesis of the apical region. Right Ventricle The right ventricle is of normal size. Right ventricular systolic functionis normal. Left Atrium The left atrium is moderately dilated. There is no evidence for a patentforamen ovale. Right Atrium The right atrium is moderately dilated. Aortic Valve The aortic valve is not well visualized. The aortic valve may be bicuspid.The aortic valve is moderately thickened. The aortic valve is moderatelycalcified. There is calcification of the aortic annulus. There is moderate to severeaortic stenosis. The peak instantaneous gradient across the aortic valve is 61mmHg. The mean gradient across the aortic valve is 36. The highest gradient isobtained from the apical window. The aortic valve area calculated using the continuityequation is 1.0 cm2. The dimensionless index is 0.31. There is moderate aortic regurgitation. The regurgitant jet is directed eccentrically toward the interventricular septum. Mitral Valve The mitral valve is structurally normal. There is no mitral stenosis.There is mild mitral regurgitation. Tricuspid Valve The tricuspid valve is structurally normal. There is no tricuspidstenosis. There is mild to moderate tricuspid regurgitation. Pulmonic Valve The pulmonic valve appears to be structurally normal. There is novalvular pulmonic stenosis. There is trace pulmonic valve regurgitation. Great Arteries The aortic root is dilated. The diameter at the level of the sinuses ofValsalva is 4.6 cm. The ascending aorta is dilated. The maximum diameter of theproximal ascending aorta is 4.4 cm. Venous Inferior vena cava is normal in size. Inferior vena cava collapse greaterthan 50% with respiration. Pericardium/Pleural There is no pericardial effusion. Epicardial fat is present. Hemodynamics The peak right ventricular systolic pressure is 48 mmHg. The estimatedright atrial pressure is 3mmHg. Left ventricular filling pressure isincreased. Ejection Fraction 2D Measurements Volumes EF(MOD-bp): 43.7 % IVSd: 1.3 cm LAV(MOD-bp)Indexed: LVIDd: 8.3 cm LVIDs: 6.2 cm 43.2 ml/m2 LVPWd: 1.3 cm RA A4Cs_phl: 26.5cm2 EDV (MOD-bp)Index: LV mass(C)d: 619.9 grams 199.6 LV mass(C)dI: 293.1 grams/m2 ESV (MOD-bp)Index: Ao root diam: 4.6 cm 112.4 Ao root diam index: 2.2 SV(LVOT): 91.8ml asc Aorta Diam: 4.4 cm LVOT diam: 2.1 cm SI(LVOT): 43.4ml/m2 Doppler TR max brte: 336.0 cm/sec RVSP(TR): 48.2 mmHg LV V1 VTI: 27.6 cm Ao V2 VTI: 88.9 cm Ao Max: 390.0 cm/sec Ao valve max: 60.9 mmHg Ao valve mean: 35.5 mmHg MV E max bret: 82.5 cm/sec MV A max bret: 30.5 cm/sec MV E/A: 2.7 MV dec time: 0.17 sec Lat Peak E' Bret: 7.9 cm/sec E/ e' (lat): 10.5 Med Peak E' Bret: 6.3 cm/sec E/e' (med): 13.0 E/e' Average: 11.8 FINA(I,D): 1.0 cm2 Dimensionless index Aov: 0.31 I WMSI = 1.88 % Normal = 38 SegmentsSize X - Cannot 2 - 4 - 1-2small Interpret 1 - Normal Hypokinetic 3 - Akinetic Dyskinetic 3-5moderate 5 - 6-14large Aneurysmal 15-16diffuse Annamarie Mendoza MD ECHO ORDERABLES * Differential, Automated (09/03/2022 6:00 AM EDT) Neutrophil % 58.7 % [facility] Neutrophil Absolute 5.35 1.70 - 6.10 x10(3)/[facility] Lymph % 27.3 % [facility] Lymphocytes Abs 2.5 0.9 - 3.2 x10(3)/[facility] Monocyte % 9.3 % [facility] Monocyte Abs 0.8 0.3 - 0.9 x10(3)/[facility] Eos % 3.8 % [facility] Eosinophils Abs 0.4 0.0 - 0.4 x10(3)/[facility] Basophil % 0.7 % [facility] Baso Absolute 0.1 0.0 - 0.1 x10(3)/[facility] Immature Gran % 0.20 % [facility] Comment: Immature granulocytes(IG's)percentage and absolute count will include metamyelocytes, myelocytes, and promyelocytes. Blood smears from CBCs yielding IG's will be scanned manually for concordance. If this scan disagrees with the automated IG or if promyelocytes are noted, a manual differential will be performed. Immature Gran Absolute 0.02 0.00 - 0.04 x10(3)/[facility] Blood 09/03/2022 6:00 AM EDT 09/03/2022 6:08 AM EDT Narrative Resulting Agency Comment Spec In Lab Iliana Cuevas MD HEMATOLOGY ORDERABLE S Performing Organization Address City/[facility] Co de Phone Number [facility] [place] [address] * Hemogram (09/03/2022 6:00 AM EDT) Pathologist [facility] White Blood Cell 9.1 4.0 - 9.5 x10(3)/[facility] Red Blood Cell 5.07 4.58 - 5.54 x10(6)/[facility] Hemoglobin 15.4 13.7 - 16.5 g/dL [facility] Hematocrit 46.7 40.5 - 48.5 % [facility] Mean Cell Volume 92.1 82.9 - 93.1 fL [facility] Mean Cell Hemoglobin 30.4 27.5 - 32.1 pg [facility] Mean Cell Hemoglobin Concentration 33.0 32.0 - 35.7 g/dL [facility] Platelet 171 145 - 357 x10(3)/[facility] RDW Standard Deviation 42.7 36.0 - 45.0 fL [facility] RDW coefficient of variation 12.6 11.4 - 13.8 % [facility] Mean Platelet Volume 10.0 7.6 - 12.9 fL [facility] NRBC% auto 0.0 % [facility] NRBC Absolute 0.000 0.000 - 0.000 x10(3)/[facility] Blood 09/03/2022 6:00 AM EDT 09/03/2022 6:08 AM EDT Narrative Resulting Agency Comment Spec In Lab Iliana Cuevas MD HEMATOLOGY ORDERABLE S Performing Organization Address City/[facility]/ZIP Co de Phone Number [facility] [place] [address] * (ABNORMAL) Troponin (09/03/2022 6:00 AM EDT) Pathologist [facility] Troponin-T, High Sensitivity 52(H) <=22 ng/L [facility] Comment: This patient's troponin T concentration [...] troponin value can be found in the [facility] Test Catalog Troponin - [facility] Test Catalog Reference: Fourth [place] Definition of Myocardial Infarction. Journal of the [place] [employer] 2018;72:3089-6973 Blood 09/03/2022 6:00 AM EDT 09/03/2022 6:07 AM EDT Narrative Resulting Agency Comment Spec In Lab Pasha Guillen MD CHEMISTRY ORDERABLES [facility] [place] [address] * Heparin (unfractionated) Level (09/03/2022 6:00 AM EDT) UF Heparin 0.05 IU/mL [facility] Comment: Heparin (anti-Xa) levels should be determined in a plasma sample that has been drawn 6 hours after a dose change to approximate steady-state for continuous heparin infusions. Indication specific Heparin (anti-Xa) levels based on order set selection: Acute DVT or PE treatment: 0.3 ? 0.7 IU/mL Thrombosis Prevention (eg. atrial fibrillation, leatha-procedural bridging, mechanical valves): 0.3 ? 0.7 IU/mL Acute Coronary Syndrome: 0.3 ? 0.7 IU/mL Stroke Indications: 0.3 ? 0.5 IU/mL Ultra-low intensity (select indications in cardiac surgery): 0.1 ? 0.3 IU/mL Blood 09/03/2022 6:00 AM EDT 09/03/2022 6:08 AM EDT Narrative Resulting Agency Comment Spec In Lab Annamarie Mendoza MD HEMATOLOGY ORDERABLE S [facility] [place] [address] * Lipid Panel (Reflex Direct LDL) (09/03/2022 6:00 AM EDT) Cholesterol, Total 105 mg/dL [facility] Comment: Lower Risk: <200 mg/dL Average Risk: 200-239 mg/dL Higher Risk: >lt=623 mg/dL Triglyceride 132 mg/dL [facility] Comment: Average Risk/Lower Risk: <150 mg/dL Borderline High Risk: 150-199 mg/dL High Risk: 200-499 mg/dL Very High Risk: >sv=907 mg/dL HDL Cholesterol 38 mg/dL [facility] Comment: Males: ?? Higher Risk: <40 mg/dL Females: ?? Higher Risk: <50 mg/dL LDL Cholesterol 41 mg/dL [facility] Comment: Lowest Risk: <100 mg/dL Lower Risk: 100-129 mg/dL Borderline High Risk: 130-159 mg/dL High Risk: 160-189 mg/dL Very High Risk: >qu=282 mg/dL Cholesterol/HDL Ratio 2.8 ratio [facility] Lipid Interpretation See Note [facility] Comment: Lipid management should be guided by a patient? s ASCVD risk, goals and preferences. ACC/AHA Guidelines recommend high intensity statin if clinical ASCVD or LDL greater than or equal to 190 mg/dL. http://tinyurl.com/OCG-ZRS-Sulbpzhbs Adults aged 40-75 with LDL 70-189 mg/dL should have their 10 year ASCVD risk estimated with the ACC/AHA ASCVD risk shop estimator http://tools.acc.org/MPOCC-Lfte-Hsfflratj/ Statin should be discussed if risk greater [...] critical component of ASCVD risk reduction. Blood 09/03/2022 6:00 AM EDT 09/03/2022 6:07 AM EDT Narrative Resulting Agency Comment Spec In Lab Annamarie Mendoza MD CHEMISTRY ORDERABLES Performing Organization Address [facility] Co de Phone Number [facility] [place] [address] * Urinalysis with reflex Culture (09/03/2022 1:43 AM EDT) Glucose, Urine Dipstick Negative Negative mg/dL [facility] Protein, Urine Dipstick Negative Negative mg/dL [facility] Bilirubin, Urine Dipstick Negative Negative mg/dL [facility] Comment: Clinical correlation required for positive Urine Bilirubin results as false positive may occur with some drugs and drug related products. If a false positive is suspected a serum total bilirubin should be considered if clinically indicated. Urobilinogen, Urine Dipstick Normal Normal mg/dL [facility] pH, Urn (dipstick) 6.0 5.0 - 8.0 [facility] Blood, Urine Dipstick Negative Negative mg/dL [facility] Ketone, Urine Dipstick Negative Negative mg/dL [facility] Nitrite, Urine Dipstick Negative Negative [facility] Leukocytes, Urine Dipstick Negative Negative mcL [facility] Appearance, Urine Dipstick Clear Clear [facility] Specific [place] Urine Automated 1.009 1.005 - 1.030 [facility] Color, Urine Dipstick Yellow Yellow [facility] Reflex to Culture No [facility] Urine 09/03/2022 1:43 AM EDT 09/03/2022 1:51 AM EDT Narrative Resulting Agency Comment Spec In Lab Annamarie Mendoza MD URINE ORDERABLES Performing Organization Address [facility]/ZIP Co de Phone Number [facility] [place] [address] * (ABNORMAL) Differential, Automated (09/03/2022 12:06 AM EDT) Neutrophil % 62.6 % [facility] Neutrophil Absolute 6.26(H) 1.70 - 6.10 x10(3)/ L [facility] Lymph % 26.1 % [facility] Lymphocytes Abs 2.6 0.9 - 3.2 x10(3)/ L [facility] Monocyte % 7.0 % [facility] Monocyte Abs 0.7 0.3 - 0.9 x10(3)/[facility] LAB[facility] Eos % 3.1 % [facility] Eosinophils Abs 0.3 0.0 - 0.4 x10(3)/[facility] LAB[facility] Basophil % 0.9 % [facility] Baso Absolute 0.1 0.0 - 0.1 x10(3)/[facility] LABORATORY Immature Gran % 0.30 % [facility] Comment: Immature granulocytes(IG's)percentage and absolute count will include metamyelocytes, myelocytes, and promyelocytes. Blood smears from CBCs yielding IG's will be scanned manually for concordance. If this scan disagrees with the automated IG or if promyelocytes are noted, a manual differential will be performed. Immature Gran Absolute 0.03 0.00 - 0.04 x10(3)/ L [facility] Blood 09/03/2022 12:0 6 AM EDT 09/03/2022 12:12 AM EDT Narrative Resulting Agency Comment Spec In Lab Iliana Cuevas MD HEMATOLOGY ORDERABLE S [facility] [place] [address] * (ABNORMAL) Hemogram (09/03/2022 12:06 AM EDT) White Blood Cell 10.0(H) 4.0 - 9.5 x10(3)/ L [facility] Red Blood Cell 4.92 4.58 - 5.54 x10(6)/[facility] Hemoglobin 15.0 13.7 - 16.5 g/dL [facility] Hematocrit 45.2 40.5 - 48.5 % [facility] Mean Cell Volume 91.9 82.9 - 93.1 fL [facility] Mean Cell Hemoglobin 30.5 27.5 - 32.1 pg [facility] Mean Cell Hemoglobin Concentration 33.2 32.0 - 35.7 g/dL [facility] Platelet 160 145 - 357 x10(3)/mc L [facility] RDW Standard Deviation 43.3 36.0 - 45.0 fL [facility] RDW coefficient of variation 12.8 11.4 - 13.8 % [facility] Mean Platelet Volume 10.0 7.6 - 12.9 fL [facility] NRBC% auto 0.0 % [facility] NRBC Absolute 0.000 0.000 - 0.000 x10(3)/mc L [facility] Blood 09/03/2022 12:0 6 AM EDT 09/03/2022 12:12 AM EDT Narrative Resulting Agency Comment Spec In Lab Iliana Cuevas MD HEMATOLOGY ORDERABLE S Performing Organization Address City/[facility]/ZIP Co de Phone Number [facility] [place] [address] * APTT (09/03/2022 12:06 AM EDT) Partial Thromboplastin Time 33 25 - 37 sec [facility] Comment: The PTT is NOT appropriate for heparin monitoring. Use the Anti-Xa level for heparin monitoring (HEP UFH) or LMWH monitoring (HEP LMW). A PTT less than 37 seconds generally indicates adequate hemostasis. Blood 09/03/2022 12:0 6 AM EDT 09/03/2022 12:12 AM EDT Narrative Resulting Agency Comment Spec In Lab Annamarie Mendoza MD HEMATOLOGY ORDERABLE S [facility] [place] [address] * (ABNORMAL) Prothrombin Time (09/03/2022 12:06 AM EDT) Prothrombin Time 12.9(H) 9.4 - 12.5 sec [facility] International Normalization Ratio 1.1 [facility] Comment: An INR <2.0 indicates adequate procoagulant activity for hemostasis in most patients without underlying bleeding disorders, though the INR may not adequately reflect hemostatic capacity in patients with liver disease and synthetic impairment. The recommended target INR range for therapeutic anticoagulation is 2.0 ? 3.0 for most applications, though lower and higher ranges may be appropriate depending on clinical circumstances. Blood 09/03/2022 12:0 6 AM EDT 09/03/2022 12:12 AM EDT Narrative Resulting Agency Comment Spec In Lab Annamarie Mendoza MD HEMATOLOGY ORDERABLE S Performing Organization Address [facility] Co de Phone Number [facility] [place] [address] * Hepatic Function Panel (09/03/2022 12:06 AM EDT) Protein, Total 6.6 6.1 - 8.0 g/dL [facility] Albumin 4.1 3.2 - 5.2 g/dL [facility] Aspartate Aminotransferase 13 0 - 39 unit/L [facility] Alanine Aminotransferase 16 0 - 55 unit/L [facility] Alkaline Phosphatase 59 40 - 130 unit/L [facility] Bilirubin, Total 1.1 0.2 - 1.3 mg/dL [facility] Bilirubin, Direct 0.3 0.0 - 0.3 mg/dL [facility] Blood 09/03/2022 12:0 6 AM EDT 09/03/2022 12:12 AM EDT Narrative Resulting Agency Comment Spec In Lab Annamarie Mendoza MD CHEMISTRY ORDERABLES Performing Organization Address [facility]/ZIP Co de Phone Number [facility] [place] [address] * (ABNORMAL) pro-Brain Natriuretic Peptide (09/03/2022 12:06 AM EDT) NT-proBNP 1,871(H) <=124 pg/mL [facility] Blood 09/03/2022 12:0 6 AM EDT 09/03/2022 12:12 AM EDT Narrative Resulting Agency Comment Spec In Lab Annamarie Mendoza MD CHEMISTRY ORDERABLES Performing Organization Address City/[facility] Co de Phone Number [facility] [place] [address] * TSH (09/03/2022 12:06 AM EDT) Thyroid Stimulating Hormone 1.74 0.27 - 4.20 mcIU/mL [facility] Comment: Reference Interval (mcIU/mL): Females: ??First Trimester: 0.23-3.88 ??Second Trimester: 0.22-3.90 ??Third Trimester: 0.44-4.66 Blood 09/03/2022 12:0 6 AM EDT 09/03/2022 12:12 AM EDT Narrative Resulting Agency Comment Spec In Lab Annamarie Mendoza MD CHEMISTRY ORDERABLES Performing Organization Address [facility] Co de Phone Number [facility] [place] [address] * Phosphorus (09/03/2022 12:06 AM EDT) Phosphorus 3.7 2.5 - 4.5 mg/dL [facility] Blood 09/03/2022 12:0 6 AM EDT 09/03/2022 12:12 AM EDT Narrative Resulting Agency Comment Spec In Lab Annamarie Mendoza MD CHEMISTRY ORDERABLES Performing Organization Address [facility] Co de Phone Number [facility] [place] [address] * Magnesium (09/03/2022 12:06 AM EDT) Magnesium 0.76 0.69 - 1.07 mmol/L [facility] Blood 09/03/2022 12:0 6 AM EDT 09/03/2022 12:12 AM EDT Narrative Resulting Agency Comment Spec In Lab Annamarie Mendoza MD CHEMISTRY ORDERABLES Performing Organization Address City/[facility]/ZIP Co de Phone Number [facility] [place] [address] * Calcium (09/03/2022 12:06 AM EDT) Calcium 9.2 8.5 - 10.5 mg/dL [facility] Blood 09/03/2022 12:0 6 AM EDT 09/03/2022 12:12 AM EDT Narrative Resulting Agency Comment Spec In Lab Annamarie Mendoza MD CHEMISTRY ORDERABLES [facility] [place] [address] * Basic Metabolic Panel (non-fasting) (09/03/2022 12:06 AM EDT) Glucose 124 65 - 199 mg/dL [facility] Comment:Diabetes: >=200 mg/d L plus symptoms Blood Urea Nitrogen 16 10 - 20 mg/dL [facility] Creatinine 0.81 0.80 - 1.50 mg/dL [facility] Sodium 143 135 - 145 mmol/L [facility] Potassium 4.1 3.5 - 5.0 mmol/L [facility] Comment: Please note: ??Patients with WBC >100,000 may have falsely elevated Potassium levels. ??For accurate Potassium quantification in these patients send serum separator tube (gold top) for subsequent determinations. ??Contact the Clinical Chemistry Laboratory if there are any questions. Chloride 107 98 - 107 mmol/L [facility] Carbon Dioxide 24 22 - 31 mmol/L [facility] Anion Gap 12 5 - 15 mmol/L [facility] Calcium 9.2 8.5 - 10.5 mg/dL [facility] Est Glomerular Filtration Rate 101 >=60 mL/min/1. 73 m?? [facility] Comment: This patient's estimated GFR was [...] and symptoms in addition to eGFR. Blood 09/03/2022 12:0 6 AM EDT 09/03/2022 12:12 AM EDT Narrative Resulting Agency Comment Spec In Lab Annamarie Mendoza MD CHEMISTRY ORDERABLES Performing Organization Address [facility] Co de Phone Number [facility] [place] [address] * EKG 12 Lead (09/02/2022 9:48 PM EDT) Ventricular rate 56 BPM MUSE SYSTEM Atrial Rate 56 BPM MUSE SYSTEM P-R Interval 204 ms MUSE SYSTEM QRS Duration 132 ms MUSE SYSTEM Q-T Interval 450 ms MUSE SYSTEM QTC Calculated (Bezet) 434 ms MUSE SYSTEM Calculated P Milligan 21 degrees MUSE SYSTEM Calculated R Milligan 3 degrees MUSE SYSTEM Calculated T Milligan 109 degrees MUSE SYSTEM INTERPRETATION Sinus bradycardia Left ventricular hypertrophy with QRS widening and repolarization abnormality ( Adán product ) Cannot rule out Septal infarct , age undetermined Abnormal ECG No previous ECGs available Confirmed by MD Mindy, Pasha ([id number]) on 09/03/2022 10:27:11 AM MUSE SYSTEM 09/02/2022 9:48 PM EDT 09/03/2022 10:27 AM EDT Annamarie Mendoza MD ECG ORDERABLES Performing Organization Address [facility] Co de Phone Number MUSE SYSTEM documented in this encounter Visit Diagnoses Diagnosis Aortic stenosis- Primary Aortic valve disorders Pleuritic chest pain Painful respiration Hypertension, unspecified type documented in this encounter Admitting Diagnoses Diagnosis Aortic stenosis Aortic valve disorders documented in this encounter Administered Medications Inactive Administered Medications - up to 3 most recent administrations Medication Order MAR Action Action Date Dose Rate Site aspirin EC tablet 81 mg 81 mg, Oral, DAILY, First dose on Thu09/03/22 at 0900, Until Discontinued, Routine Given 09/04/2022 8:16 AM EDT 81 mg Given 09/03/2022 9:56 AM EDT 81 mg atorvastatin (Lipitor) tablet 20 mg 20 mg, Oral, EVERY EVENING, First dose on Thu09/02/22 at 2345, Until Discontinued, Routine Given 09/03/2022 5:30 PM EDT 20 mg Given 09/02/2022 10:54 PM EDT 20 mg atorvastatin (Lipitor) tablet 80 mg 80 mg, Oral, EVERY EVENING, First dose (after last modification) on Chelo 09/04/22 at 1700, Until Discontinued, Routine furosemide (Lasix) (10 mg/mL) injection 20 mg 20 mg, Intravenous, ONCE, 1 dose, On Thu09/03/22 at 0915 Given 09/03/2022 9:55 AM EDT 20 mg furosemide (Lasix) tablet 20 mg 20 mg, Oral, DAILY, First dose on Chelo 09/04/22 at 1015, Until Discontinued, Routine Given 09/04/2022 11:00 AM EDT 20 mg heparin (porcine) 50 units/mL in dextrose 5% 500 mL infusion 0-5,000 Units/hr (0-100 mL/hr), Intravenous, CONTINUOUS, Starting on Thu09/03/22 at 0000, Until Thu09/03/22 at 0825, Begin infusion at 1,000 units per hr (12 units/kg/hr). Maximum initial infusion rate is 1,000 units/hr. Infusion doses are rounded to the nearest 50 units. Target Heparin UFH Level (anti-Xa activity) = 0.3 - 0.7 international unit/mL Start adjustment schedule 6 hours after starting infusion. If Heparin UFH Level is: - Less than 0.1 international unit/mL: Administer PRN bolus and increase rate by 400 units per hr (4 units/kg/hr) - 0.1 - 0.19 international unit/mL: Administer PRN bolus and increase rate by 200 units per hr (2 units/kg/hr) - 0.2 - 0.29 international unit/mL: NO BOLUS and increase rate by 200 units per hr (2 units/kg/hr) - 0.3 - 0.7 international unit/mL: No change - 0.71 - 0.79 international unit/mL: NO BOLUS and decrease rate by 100 units per hr (1 units/kg/hr) - 0.8 - 0.99 international unit/mL: NO BOLUS and decrease rate by 200 units per hr (2 units/kg/hr) - Greater than or equal to 1.00 international unit/mL: Hold infusion for 60 minutes then decrease rate by 300 units per hour (3 units/kg/hr) Repeat Heparin UFH Level 6 hours after initiating heparin. Then 6 hours after each dose adjustment. When 2 consecutive Heparin UFH Level within target range of 0.3 - 0.7 international unit/mL, change Heparin UFH Level to once every 24 hours with A.M. labs while on heparin. RN to order required Heparin UFH Level - Per Protocol, Routine New Bag 09/02/2022 11:23 PM EDT 1,000 Units/hr 20 mL/hr losartan (Cozaar) tablet 100 mg 100 mg, Oral, DAILY, First dose on Thu09/03/22 at 0900, Until Discontinued, Routine Given 09/04/2022 8:15 AM EDT 100 mg Given 09/03/2022 9:56 AM EDT 100 mg magnesium sulfate 2 g in sterile water 50 mL infusion 2 g, Intravenous, ONCE, 1 dose, On Chelo 09/04/22 at 0030, Administer over 120 Minutes New Bag 09/04/2022 12:00 AM EDT 2 g 25 mL/hr metoprolol succinate XL (Toprol-XL) tablet 25 mg 25 mg, Oral, DAILY, First dose on Thu09/03/22 at 0900, Until Discontinued, DO NOT CRUSH OR OPEN, Routine Given 09/04/2022 8:17 AM EDT 25 mg Given 09/03/2022 9:56 AM EDT 25 mg potassium chloride ER (Klor-Con M) crystal tablet 40 mEq 40 mEq, Oral, ONCE, 1 dose, On Chelo 09/04/22 at 0030, potassium chloride ER particle/crystal tablets (Klor-Con M) may be broken in half and each half swallowed separately. Tablets can be dissolved in ~4 ounces of water; allow ~2 minutes to dissolve, stir well and drink immediately. Do not crush, chew, or suck on tablet., Routine Given 09/04/2022 12:01 AM EDT 40 mEq psyllium (unsweetened) packet 1 packet 1 packet, Oral, 2 TIMES DAILY, First dose on Thu09/03/22 at 0900, Until Discontinued, Mix each packet with 8 ounces of water. Given 09/03/2022 9:56 AM EDT 1 packet sodium chloride 0.9 % (flush) (BD PosiFlush Normal Saline 0.9) flush 5 mL 5 mL, Intravenous, 2 TIMES DAILY, First dose on Thu09/02/22 at 2345, Until Discontinued, Routine Given 09/03/2022 9:07 PM EDT 5 mLs Given 09/03/2022 10:01 AM EDT 5 mLs Given 09/02/2022 11:45 PM EDT 5 mLs sodium chloride 0.9 % (flush) (BD PosiFlush Normal Saline 0.9) flush 5 mL 5 mL, Intravenous, 2 TIMES DAILY, First dose on Thu09/02/22 at 2345, Until Discontinued, Routine Given 09/03/2022 9:06 PM EDT 5 mLs Given 09/03/2022 9:57 AM EDT 5 mLs Given 09/02/2022 10:56 PM EDT 5 mLs sodium chloride 0.9% infusion 100 mL/hr, Intravenous, CONTINUOUS, Starting on Thu09/04/22 at 1000, Until Thu09/04/22 at 1359, Recovery (Recovery-Hospital Unit) New Bag 09/04/2022 10:00 AM EDT 100 mL/hr 100 m L/hr documented in this encounter Active and Recently Administered Medications Times are shown in EDT. Scheduled Medication Order 09/02/2022 09/03/2022 09/04/2022 aspirin EC tablet 81 mg 81 mg, Oral, DAILY, First dose on Thu09/03/22 at 0900, Until Discontinued, Routine 0956 (Given - Provider: Diana Rojo RN) 0816 (Given - Provider: Diana Rojo RN)0825 ([facility] Hold - Provider: Admin Adt - Reason: Transfer to a Procedural area)1015 ([facility] Unhold - Provider: Admin Adt) atorvastatin (Lipitor) tablet 20 mg (CANCELED) 20 mg, Oral, EVERY EVENING, First dose on Thu09/02/22 at 2345, Until Discontinued, Routine 2254 (Given - Provider: Acacia Hernandez RN) 1730 (Given - Provider: Diana Rojo RN) atorvastatin (Lipitor) tablet 80 mg 80 mg, Oral, EVERY EVENING, First dose (after last modification) on Thu09/04/22 at 1700, Until Discontinued, Routine 0825 ([facility] Hold - Provider: Admin Adt - Reason: Transfer to a Procedural area)1015 ([facility] Unhold - Provider: Admin Adt) furosemide (Lasix) (10 mg/mL) injection 20 mg (COMPLETED) 20 mg, Intravenous, ONCE, 1 dose, On Thu09/03/22 at 0915 0955 (Given - Provider: Diana Rojo RN) furosemide (Lasix) tablet 20 mg 20 mg, Oral, DAILY, First dose on Thu09/04/22 at 1015, Until Discontinued, Routine 1100 (Given - Provider: Diana Rojo RN) losartan (Cozaar) tablet 100 mg 100 mg, Oral, DAILY, First dose on Thu09/03/22 at 0900, Until Discontinued, Routine 0956 (Given - Provider: Diana Rojo RN) 0815 (Given - Provider: Diana Rojo RN)0825 ([facility] Hold - Provider: Admin Adt - Reason: Transfer to a Procedural area)1015 ([facility] Unhold - Provider: Admin Adt) magnesium sulfate 2 g in sterile water 50 mL infusion (COMPLETED) 2 g, Intravenous, ONCE, 1 dose, On Thu09/04/22 at 0030, Administer over 120 Minutes 0000 (New Bag - Provider: Jesica Ashby, RN)0200 (Stopped - Provider: Patricia Lutz RN) metoprolol succinate XL (Toprol-XL) tablet 25 mg 25 mg, Oral, DAILY, First dose on Thu09/03/22 at 0900, Until Discontinued, DO NOT CRUSH OR OPEN, Routine 0956 (Given - Provider: Diana Rojo RN) 0817 (Given - Provider: Diana Rojo RN)0825 ([facility] Hold - Provider: Admin Adt - Reason: Transfer to a Procedural area)1015 ([facility] Unhold - Provider: Admin Adt) potassium chloride ER (Klor-Con M) crystal tablet 40 mEq (COMPLETED) 40 mEq, Oral, ONCE, 1 dose, On Thu09/04/22 at 0030, potassium chloride ER particle/crystal tablets (Klor-Con M) may be broken in half and each half swallowed separately. Tablets can be dissolved in ~4 ounces of water; allow ~2 minutes to dissolve, stir well and drink immediately. Do not crush, chew, or suck on tablet., Routine 0001 (Given - Provider: Jesica Ashby, XI) psyllium (unsweetened) packet 1 packet 1 packet, Oral, 2 TIMES DAILY, First dose on Thu09/03/22 at 0900, Until Discontinued, Mix each packet with 8 ounces of water. 0956 (Given - Provider: Diana Rojo RN)2100 (Not Given - Provider: eJsica Ashby RN - Reason: Patient/family refused) 0825 ([facility] Hold - Provider: Admin Adt - Reason: Transfer to a Procedural area)0900 (Not Given - Provider: Diana Rojo RN - Reason: Patient not available)1015 ([facility] Unhold - Provider: Admin Adt) sodium chloride 0.9 % (flush) (BD PosiFlush Normal Saline 0.9) flush 5 mL 5 mL, Intravenous, 2 TIMES DAILY, First dose on Thu09/02/22 at 2345, Until Discontinued, Routine 2345 (Given - Provider: Acacia Hernandez RN) 1001 (Given - Provider: Diana Rojo RN)2107 (Given - Provider: Jesica Ashby RN) 0825 ([facility] Hold - Provider: Admin Adt - Reason: Transfer to a Procedural area)0900 (Not Given - Provider: Diana Rojo RN - Reason: Order parameters not met)1015 ([facility] Unhold - Provider: Admin Adt) sodium chloride 0.9 % (flush) (BD PosiFlush Normal Saline 0.9) flush 5 mL 5 mL, Intravenous, 2 TIMES DAILY, First dose on Thu09/02/22 at 2345, Until Discontinued, Routine 2256 (Given - Provider: Acacia Hernandez RN) 0957 (Given - Provider: Diana Rojo RN)2106 (Given - Provider: Jesica Ashby, XI) 0825 ([facility] Hold - Provider: Admin Adt - Reason: Transfer to a Procedural area)0900 (Not Given - Provider: Diana Rojo RN - Reason: Patient not available)1015 ([facility] Unhold - Provider: Admin Adt) Continuous Medication Order 09/02/2022 09/03/2022 09/04/2022 heparin (porcine) 50 units/mL in dextrose 5% 500 mL infusion (CANCELED)(Linked Group 1) 0-5,000 Units/hr (0-100 mL/hr), Intravenous, CONTINUOUS, Starting on Thu09/03/22 at 0000, Until Thu09/03/22 at 0825, Begin infusion at 1,000 units per hr (12 units/kg/hr). Maximum initial infusion rate is 1,000 units/hr. Infusion doses are rounded to the nearest 50 units. Target Heparin UFH Level (anti-Xa activity) = 0.3 - 0.7 international unit/mL Start adjustment schedule 6 hours after starting infusion. If Heparin UFH Level is: - Less than 0.1 international unit/mL: Administer PRN bolus and increase rate by 400 units per hr (4 units/kg/hr) - 0.1 - 0.19 international unit/mL: Administer PRN bolus and increase rate by 200 units per hr (2 units/kg/hr) - 0.2 - 0.29 international unit/mL: NO BOLUS and increase rate by 200 units per hr (2 units/kg/hr) - 0.3 - 0.7 international unit/mL: No change - 0.71 - 0.79 international unit/mL: NO BOLUS and decrease rate by 100 units per hr (1 units/kg/hr) - 0.8 - 0.99 international unit/mL: NO BOLUS and decrease rate by 200 units per hr (2 units/kg/hr) - Greater than or equal to 1.00 international unit/mL: Hold infusion for 60 minutes then decrease rate by 300 units per hour (3 units/kg/hr) Repeat Heparin UFH Level 6 hours after initiating heparin. Then 6 hours after each dose adjustment. When 2 consecutive Heparin UFH Level within target range of 0.3 - 0.7 international unit/mL, change Heparin UFH Level to once every 24 hours with A.M. labs while on heparin. RN to order required Heparin UFH Level - Per Protocol, Routine 9416 (New Bag - Provider: Acacia Hernandez RN) 0800 (Stopped - Provider: Diana Rojo RN) sodium chloride 0.9% infusion 100 mL/hr, Intravenous, CONTINUOUS, Starting on Chelo 09/04/22 at 1000, Until Chelo 09/04/22 at 1359, Recovery (Recovery-Hospital Unit) 1000 (New Bag - Provider: Magdi Bee RN) PRN Medication Order 09/02/2022 09/03/2022 09/04/2022 acetaminophen (Tylenol) tablet 650 mg 650 mg, Oral, EVERY 4 HOURS PRN, Starting on Thu09/02/22 at 2245, Until Chelo 09/04/22 at 1831, Pain, Headaches, Maximum dose of acetaminophen is 4,000 mg from all sources in 24 hours. When ordered for pain, acetaminophen should be given even when other ordered pain medications are indicated. , Routine 0825 ([facility] Hold - Pro vider: Admin Adt - Reason: Transfer to a Procedural area)1015 ([facility] Unhold - Provider: Admin Adt) albuteroL (Proventil, Ventolin) (2.5 mg/3 mL) (0.083 %) nebulizer solution 2.5 mg 2.5 mg, Nebulization, EVERY 4 HOURS PRN, Starting on Thu09/02/22 at 2245, Until Chelo 09/04/22 at 1831, Wheezing, Routine 0825 ([facility]UL Hold - Pro vider: Admin Adt - Reason: Transfer to a Procedural area)1015 ([facility] Unhold - Provider: Admin Adt) fentaNYL (pf) (50 mcg/mL) multi-dose injection (CANCELED) ONCE PRN, Starting on Chelo 09/04/22 at 0838, Until Chelo 09/04/22 at 0936, Intra-Operative (Intra-Procedure), Routine 0838 (Given - Provid er: Gladis Bob RN)0847 (Given - Provider: Gladis Bob RN) heparin (porcine) (1,000 units/mL) injection (CANCELED) ONCE PRN, Starting on Chelo 09/04/22 at 0903, Until Chelo 09/04/22 at 0936, Intra-Operative (Intra-Procedure), Routine 0903 (Given - Provid er: Gladis Bob RN) iohexoL (Omnipaque) (350 mg/mL) solution (CANCELED) ONCE PRN, Starting on Chelo 09/04/22 at 0934, Until Chelo 09/04/22 at 0936, Intra-Operative (Intra-Procedure), Routine 0934 (Given - Provid er: Omar Saini MD - Comment: Contrast in Verification Clerk) lidocaine (Xylocaine) 1% (10 mg/mL) injection 3 mg 3 mg (0.3 mL), Subcutaneous, ONCE PRN, 1 dose, Starting on 09/02/22 at 2245, Until Chelo 09/04/22 at 1831, for discomfort with PIV insertion, Routine 0825 ([facility] Hold - Pro vider: Admin Adt - Reason: Transfer to a Procedural area)1015 ([facility] Unhold - Provider: Admin Adt) lidocaine (Xylocaine) 1% (10 mg/mL) injection 3 mg 3 mg (0.3 mL), Subcutaneous, ONCE PRN, 1 dose, Starting on Thu09/02/22 at 2245, Until Chelo 09/04/22 at 1831, for discomfort with PIV insertion, Routine 0825 ([facility] Hold - Pro vider: Admin Adt - Reason: Transfer to a Procedural area)1015 ([facility] Unhold - Provider: Admin Adt) lidocaine (Xylocaine) 1% (10 mg/mL) injection (CANCELED) ONCE PRN, Starting on Chelo 09/04/22 at 0836, Until Chelo 09/04/22 at 0936, Intra-Operative (Intra-Procedure), Routine 0836 (Given - Provid er: Jason Rodríguez Jr., MD - Comment: for cath sheath insertions) midazolam (pf) (Versed) (1 mg/mL) multi-dose injection (CANCELED) ONCE PRN, Starting on Chelo 09/04/22 at 0838, Until Chelo 09/04/22 at 0936, Intra-Operative (Intra-Procedure), Routine 0838 (Given - Provid er: Gladis Bob RN)0902 (Given - Provider: Gladis Bob RN) nitroGLYcerin (Nitrostat) disintegrating tablet 0.4 mg 0.4 mg, Sublingual, EVERY 5 MIN PRN, Starting on e 09/02/22 at 2245, Until Chelo 09/04/22 at 1831, Chest pain, May repeat every 5 minutes for a total of three doses. Notify provider if chest pain not relieved with nitroglycerin. Do not administer nitroglycerin if the patient has received or taken phosphodiesterase (PDE-5) inhibitors such as sildenafil, tadalafil or vardenafil within the last 24 to 72 hours., Routine 0825 ([facility] Hold - Pro vider: Admin Adt - Reason: Transfer to a Procedural area)1015 ([facility] Unhold - Provider: Admin Adt) sodium chloride 0.9 % (flush) (BD PosiFlush Normal Saline 0.9) flush 5-20 mL 5-20 mL, Intravenous, EVERY 1 MIN PRN, Starting on Thu09/02/22 at 2245, Until Thu09/04/22 at 1831, flush, Flush pertains to all indwelling lines. Flush per protocol found in the job aid using the link provided on this medication record., Routine 0825 ([facility] Hold - Pro vider: Admin Adt - Reason: Transfer to a Procedural area)1015 ([facility] Unhold - Provider: Admin Adt) sodium chloride 0.9 % (flush) (BD PosiFlush Normal Saline 0.9) flush 5-20 mL 5-20 mL, Intravenous, EVERY 1 MIN PRN, Starting on Thu09/02/22 at 2245, Until Thu09/04/22 at 1831, flush, Flush pertains to all indwelling lines. Flush per protocol found in the job aid using the link provided on this medication record., Routine 0825 ([facility] Hold - Pro vider: Admin Adt - Reason: Transfer to a Procedural area)1015 ([facility] Unhold - Provider: Admin Adt) sodium chloride 0.9% infusion (CANCELED) CONTINUOUS PRN, Starting on Thu09/04/22 at 0836, Until Thu09/04/22 at 0936, Intra-Operative (Intra-Procedure) 0836 (New Bag - Prov ider: Gladis Bob RN - Comment: Verification Clerk Flush Line) verapamiL (Isoptin) (2.5 mg/mL) injection (CANCELED) ONCE PRN, Starting on Thu09/04/22 at 0847, Until Thu09/04/22 at 0936, Administer over 2 Minutes, Intra-Operative (Intra-Procedure) 0847 (Given - Provid er: Jason Rodríguez Jr., MD - Comment: per Radial Protocol) Linked Groups Order Group 1: heparin (porcine) 50 units/mL in dextrose 5% 500 mL infusion (CANCELED)Jump to med 0-5,000 Units/hr (0-100 mL/hr), Intravenous, CONTINUOUS, Starting on Thu09/03/22 at 0000, Until Thu09/03/22 at 0825, Begin infusion at 1,000 units per hr (12 units/kg/hr). Maximum initial infusion rate is 1,000 units/hr. Infusion doses are rounded to the nearest 50 units. Target Heparin UFH Level (anti-Xa activity) = 0.3 - 0.7 international unit/mL Start adjustment schedule 6 hours after starting infusion. If Heparin UFH Level is: - Less than 0.1 international unit/mL: Administer PRN bolus and increase rate by 400 units per hr (4 units/kg/hr) - 0.1 - 0.19 international unit/mL: Administer PRN bolus and increase rate by 200 units per hr (2 units/kg/hr) - 0.2 - 0.29 international unit/mL: NO BOLUS and increase rate by 200 units per hr (2 units/kg/hr) - 0.3 - 0.7 international unit/mL: No change - 0.71 - 0.79 international unit/mL: NO BOLUS and decrease rate by 100 units per hr (1 units/kg/hr) - 0.8 - 0.99 international unit/mL: NO BOLUS and decrease rate by 200 units per hr (2 units/kg/hr) - Greater than or equal to 1.00 international unit/mL: Hold infusion for 60 minutes then decrease rate by 300 units per hour (3 units/kg/hr) Repeat Heparin UFH Level 6 hours after initiating heparin. Then 6 hours after each dose adjustment. When 2 consecutive Heparin UFH Level within target range of 0.3 - 0.7 international unit/mL, change Heparin UFH Level to once every 24 hours with A.M. labs while on heparin. RN to order required Heparin UFH Level - Per Protocol, Routine And heparin (porcine) (1,000 units/mL) injection 0-4,000 Units (CANCELED) 0-4,000 Units, Intravenous, BOLUS PER HEPARIN PROTOCOL, Starting on Thu09/02/22 at 2308, Until Thu09/03/22 at 0825, Per Protocol, START ADJUSTMENT SCHEDULE 6 HOURS AFTER STARTING INFUSION Bolus doses are rounded to the nearest 100 units. If Heparin UFH Level is: - Less than 0.1 international unit/mL: Bolus 60 units/kg (Maximum of 4,000 units) = Bolus 4,000 units - 0.1 - 0.19 International unit/mL: Bolus 30 units/kg (Maximum of 2,000 units) = Bolus 2,000 units - Equal to or greater than 0.2 international unit/mL: No Bolus, Routine documented in this encounter Care Teams Neuroradiologist Relationship Specialty Start Date End Date Tono Montero MD PCP - General Family Medicine 09/02/22 documented as of this encounter
--- OUTSIDE RECORDS SUMMARY | 2024-02-25 10:39 | XMS_ITS | Encounter Summary ---
Author Organization Formerly [facility] [place] [address] Care Team Providers Care Regional Engineer Name Role Phone Tono Montero MD Primary Care Provider [phone] Reason for Visit * Auth/Cert (Routine) Specialty Diagnoses / Procedures Referred By Mounika carr Referred To Contact Diagnoses Aortic stenosis Nstemi Procedures ER Annamarie Mancilla MD [facility] [place] [address] [facility] Referral ID Status Reason Start Date Expiration Date Visits Re quested Visits Authorized [id number] 1 1 Encounter Details Date Type Department Care Team (Late st Contact Info) Description 09/04/2022 8:00 AM EDT - 09/04/2022 9:00 AM EDT [place] [address] Omar Saini MD [facility] [place] [address] CARDIAC CATHETERIZATION Social History Tobacco Use Types Packs/Day Years Used Date Smoking Tobacco: Never Assessed Sex and Gender Information Value Date Recorded Sex Assigned at Male 12/27/2022 9:49 AM EDT Gender Identity Male 12/27/2022 9:49 AM EDT Sexual Orientation Straight 12/27/2022 9: 49 AM EDT documented as of this encounter Last Filed Vital Signs Vital Sign Reading Time Taken Comments Blood Pressure 151/68 09/04/2022 8:31 AM EDT Pulse 55 09/04/2022 8:31 AM EDT Temperature 36.7 ??C (98.1 ??F) 09/04/2022 7:38 AM ED T Respiratory Rate 18 09/04/2022 8:31 AM EDT Oxygen Saturation 95% 09/04/2022 8:31 AM EDT Inhaled Oxygen Concentration - - [...] dilated aortic root, smoker who presented to [facility] for progressive shortness of breath. Hospital Course: Severe bicuspid aortic stenosis Acute decompensated systolic heart failure Ischemic/nonischemic cardiomyopathy Type II NSTEMI 2/2 severe aortic stenosis Nonobstructive CAD Dilated aortic root / ascending aorta Patient was admitted for progressive shortness of breath and then setting of known history of moderate to severe bicuspid aortic stenosis. He was admitted to [facility] initially and started on a heparin infusion [...] Data: Discharge Labs: Recent Labs 09/03/22 0600 09/03/225 WBC 9.1 10.0* HGB 15.4 15.0 PLATELET 171 160 Recent Labs 09/03/22205109/03/225 NA 142 143 K 3.5 4.1 CL 104 107 CO2 25 24 BUN 17 16 CREATININE 0.85 0.81 GLUCOSE 159 124 Recent Labs 09/03/22205109/03/225 CALCIUM 9.5 9.2 9.2 MAGNESIUM 0.79 0.76 PHOS -- 3.7 No results for input(s): CK, TROPONINT in the last 168 hours. Recent Labs 09/03/225 AST 13 ALT 16 ALKPHOS 59 BILITOT 1.1 BILIDIR 0.3 Recent Labs 04/26/23 0006 INR 1.1 Lab Results Component Value [...] AM Mono Chavarria MD Cardiac Surgery at [facility] Arrive at: [employer] Librarian Area [phone] 10/10/2022 2:00 PM Reynaldo Stack MD; Prabhjot Schuster MD Cardiology at [facility] Arrive at: [employer] Libr[employer] Area [phone] General Instructions None Patient Instructions Patient Instructions [...] You will follow up October 10with a hatch supervisor in clinic. We sent you with medications [...] Center 09/09/2022 10:20 AM Mono Chavarria MD [facility] CARDIAC [facility] 10/10/2022 2:00 PM Prabhjot Schuster MD [facility] CARD [address] [place] [address] Your Inpatient Medical Team at [facility] Name(s) of your inpatient provider(s): Dr. Guillen For questions regarding issues relating to your hospitalization on the Hospital Medicine Service, please contact your inpatient physician through the [facility] Delivery Department Supervisor [phone]. Issues after hours and on weekends will be handled by the Hospitalist staff on-call. Your Primary Care Provider Tono Montero MD [phone] For questions regarding this document or issues relating to this hospitalization on the Medical Service, please contact your inpatient physician through the [facility] Delivery Department Supervisor . Issues afterhours and on weekends will be handled by the [employer] staff on-call. documented in this encounter Discharge [...] You will follow up October 10with a hatch supervisor in clinic. We sent you with medications [...] Center 09/09/2022 10:20 AM Mono Chavarria MD [facility] CARDIAC [facility] 09/09/2022 11:30 AM PRE ADMISSION, TESTING [facility] SAMEDAY [facility] 10/10/2022 2:00 PM Prabhjot Schuster MD [facility] CARD 4A [facility] Your Inpatient Medical Team at [facility] Name(s) of your inpatient provider(s): Dr. Guillen For questions regarding issues relating to your hospitalization on the Hospital Medicine Service, please contact your inpatient physician through the [facility] Delivery Department Supervisor [phone]. Issues after hours and on weekends will be handled by the Hospitalist staff on-call. Your Primary Care Provider Tono Montero MD [phone] Radial Access for Heart Cath Activity Try [...] Center 09/09/2022 10:20 AM DeonMono melgar MD [facility] CARDIAC [facility] 09/09/2022 11:30 AM PRE ADMISSION, TESTING [facility] SAMEDAY [facility] 10/10/2022 2:00 PM Prabhjot Schuster MD [facility] CARD 4A [facility] Your Inpatient Doctor: Pasha Guillen MD Your Primary Care Provider: Tono Montero MD [phone] For questions regarding this document or issues relating to this hospitalization on the Medical Service, please contact your inpatient physician through the [facility] Delivery Department Supervisor . Issues afterhours and on weekends will [...] use who presented as a transfer from [facility] with chest pain, found to have elevated [...] INR 1.1 PT 12.9* PTT 33 Troponin (599): 52. LDL 41 / HDL 38 / [...] tobacco use who presented as atransfer from [facility] with chest pain, found to have elevated [...] Domo Damon MD, PGY-1 Cardiology S1 (Pager [phone]) 09/03/2022 Associated attestation - Pasha Guillen MD - 09/03/2022 11:22 AM EDT Please see my addendum in the H&P dated 09/02/2022. Pasha Guillen MD, MPH * Reynaldo Stack MD - 09/03/2022 7:18 AM EDT Images from the original note were not included. [facility] [place] [address] [address] SAME DAY CARDIAC CATHETERIZATION LAB H&P ID: Conner Bridges is a 62 y.o. male with past medical history of JOSEPH, HTN, Aortic Stenosis with bicuspid aortic valve , Smoker who presented to [facility] for chest pain found to have elevated troponin consistent with type I vs II NSTEMI (plaque rupture less likely, possibly related to aortic stenosis). We are referring for diagnostic coronary angiogram and RHC. Brief HPI: He presented to [facility] for feeling unwell for several days with accompanying right sided chest discomfort. He reports a month or two of progressive SOB. 2-3 days ago, it was to the point of where he could not lay flat which brought him in. He was hemodynamically stable on arrival to [facility]. ECG was non-ischemic. HsTroponin 115 peak. ProBNP [...] strain. Previous cardiac diagnostic studies: Coronary CT ([facility] 2020): Left main coronary artery: There is [...] full code. Plan: -plan for R + [facility] for assess for coronary disease and filling pressures in setting of severe bicuspid aortic stenosis -consent signed Reynaldo Stack MD Slag Skimmer 09/03/2022 * Acacia Hernandez RN - 09/03/2022 [...] use who presented as a transfer from [facility] with chest pain, found to have elevated [...] air. EKG showed sinus bradycardia with prolonged CO interval and possible LBBB. CTA showed mild interstitial edema, no evidence of thoracic aortic aneurysm or dissection, marked aorticvalvular calcification dilated ascending thoracic aorta (max 4.6cm, follow up recommended), and stable pulmonary nodules measuring less than 6 mm. Labs were significant for NT-proBNP 2351 (ULN 300), Trop I 115, 99 on repeat (ULN 60). Bedside TTE was concerning for LVEF ~20-30%, newly decreased [id number], when he had a normal LVEF and [...] apnea questionable, sleep center scheduled for 07/09/15 [facility] No past surgical history on file. [...] air Intake/Output Summary (Last 24 hours) at 09/03/2022 005 Last data filed at 09/02/20222142 Gross per [...] 12.9* PTT 33 Cardiac Enzymes Recent Labs 09/03/225 PROBNP 1,871* Endocrine Recent Labs 09/03/225 TSH 1.74 No results for input(s): POCGLU in the last 168 hours. Heme No results for input(s): LDH, HAPTOGLOBIN, URICACID in the last 168 hours. ABG (Arterial Blood Gas) No results found for: PHART, PO2ART, PYY0MJE, YEV9JXR Microbiology: Microbiology Results (Last 30 days) No results found for the last 720 hours. Imaging: No results found for this visit on 09/02/22. Assessment & Plan: Conner Bridges is a 62 y.o. male w/ PMH significant for JOSEPH, HTN, , tobacco use who presented as atransfer from [facility] with chest pain, found to have elevated [...] vs. NSTEMI - EKG with sinus estefania, CO 217 ms at OSH - Trop 115, [...] meeting a minimum of two midnights. Mr. Bridegs is a very pleasant 62 year old [...] Cuevas. Pasha Guillen MD, MPH, RPVI, FACC, AWA, LIZETH, [facility] Pager [phone] Cardiovascular Broadcast Maintenance EngineerSpecial Day [place] [address] documented in this encounter Miscellaneous Notes * [...] return home then return for surgery. Conner Bridges is seen at the request of Dr. [...] asa/ statin. 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 No h/o liver disease. Creatinine is 0.81. 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 Cardiac cath pending today. -Please obtain CXR and Cardiac Cath -No further Plavix or Prasugrel if proceeding forth with surgery. -Continue with medical management/optimization. -Surgical candidacy, timing, and/or further recommendations will be determined by the Attending Surgeon. DW Dr. Chavarria. Thank you very much for the opportunity to be involved in the care of Conner Bridges. Signed: CHRISTIN ZARATE PA-C [facility] Section of Cardiac Surgery Date: 09/03/2022 * [...] 07/09/15 Hospitalizations Within the Past 30 Days: no previous admission in last 30 days Current Decision-Making Capacity: Self If AD's have not been completed the following surrogate would be surrogate decision maker per [place] surrogate decision making law. (Only good for 180 days) Any patient receiving care in [place] must abide by [place] law. The hierarchy for surrogate decision making [...] (i) The agent with financial power of document review attorney or a conservator appointed in accordance with [...] Current DME: none Home Address confirmed as: [address] [place] [phone] Social & Family Supports: All names listed below confirmed with patient as current and correct Extended Emergency Contact Information Primary Emergency Contact: BrianneKorina Address: [address] [place] [phone] [facility] Mobile Relation: Fiancee Current Care Provided by: self Provides Primary [...] Coverage: Yes Preferred Pharmacy: No Pharmacies Listed [place] Status: Patient is a : No Primary Care Provider confirmed: Tono Montero MD [phone] Patient/Caregiver Goals of Treatment: Potential Needs for [...] independent at baseline and 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 Plan: Plan for Ischemic [...] of care planning. Margret Polanco RN, CM Pager-[phone] * Consult Note - Thom Palma RCP [...] Hemoglobin A1c 5.4 4.3 - 5.6 % [facility] Comment: Reference Range: 4.3 - 5.6% [...] 1, S67-74 Estimated Average Glucose 109 mg/dL [facility] Comment: eAG equivalents for HbA1c percentages: [...] into estimated average glucose values. ??Diabetes Care 2008:31(8):4314-1545. Blood Venous Draw / Unknown 09/04/2022 10:31 AM EDT 09/04/2022 10:52 AM EDT Narrative Resulting Agency Comment Spec In Lab Reynaldo Stack MD CHEMISTRY ORDERABL ES [facility] [place] [address] * Differential, Automated (09/04/2022 10:31 AM EDT) Neutrophil % 57.8 % [facility] Neutrophil Absolute 5.62 1.70 - 6.10 x10(3)/[facility] LAB[facility]AT[facility] Lymph % 27.8 % [facility] Lymphocytes Abs 2.7 0.9 - 3.2 x10(3)/[facility] LABORATORY Monocyte % 9.1 % [facility] Monocyte Abs 0.9 0.3 - 0.9 x10(3)/[facility] LABORATORY Eos % 4.2 % [facility] Eosinophils Abs 0.4 0.0 - 0.4 x10(3)/[facility] LABORATORY Basophil % 0.7 % [facility] Baso Absolute 0.1 0.0 - 0.1 x10(3)/[facility] LABORATORY Immature Gran % 0.40 % [facility] Comment: Immature granulocytes(IG's)percentage and absolute count will include metamyelocytes, myelocytes, and promyelocytes. Blood smears from CBCs yielding IG's will be scanned manually for concordance. If this scan disagrees with the automated IG or if promyelocytes are noted, a manual differential will be performed. Immature Gran Absolute 0.04 0.00 - 0.04 x10(3)/[facility] LABORATORY Blood 09/04/2022 10:3 1 AM EDT 09/04/2022 10:51 AM EDT Narrative Resulting Agency Comment Spec In Lab Francisco Horan MD HEMATOLOGY ORDERABLE S Performing Organization Address City/State/[facility] Co de Phone Number [facility] [place] [address] * (ABNORMAL) Hemogram (09/04/2022 10:31 AM EDT) White Blood Cell 9.7(H) 4.0 - 9.5 x10(3)/mc L [facility] Red Blood Cell 5.36 4.58 - 5.54 x10(6)/mc L [facility] Hemoglobin 16.1 13.7 - 16.5 g/dL [facility] Hematocrit 49.6(H) 40.5 - 48.5 % [facility] Mean Cell Volume 92.5 82.9 - 93.1 fL [facility] Mean Cell Hemoglobin 30.0 27.5 - 32.1 pg [facility] Mean Cell Hemoglobin Concentration 32.5 32.0 - 35.7 g/dL [facility] Platelet 178 145 - 357 x10(3)/mc L [facility] RDW Standard Deviation 43.1 36.0 - 45.0 fL [facility] RDW coefficient of variation 12.8 11.4 - 13.8 % [facility] Mean Platelet Volume 9.8 7.6 - 12.9 fL [facility] NRBC% auto 0.0 % [facility] NRBC Absolute 0.000 0.000 - 0.000 x10(3)/mc L [facility] Blood 09/04/2022 10:3 1 AM EDT 09/04/2022 10:51 AM EDT Narrative Resulting Agency Comment Spec In Lab Francisco Horan MD HEMATOLOGY ORDERABLE S Performing Organization Address [facility] Co de Phone Number [facility] [place] [address] * Magnesium (09/04/2022 10:31 AM EDT) Magnesium 0.87 0.69 - 1.07 mmol/L [facility] Blood 09/04/2022 10:3 1 AM EDT 09/04/2022 10:51 AM EDT Narrative Resulting Agency Comment Spec In Lab Pasha Guillen MD CHEMISTRY ORDERABLES Performing Organization Address [facility] Co de Phone Number [facility] [place] [address] * (ABNORMAL) Basic Metabolic Panel (non-fasting) (09/04/2022 10:31 AM EDT) Glucose 102 65 - 199 mg/dL [facility] Comment:Diabetes: >=200 mg/d L plus symptoms Blood Urea Nitrogen 16 10 - 20 mg/dL [facility] Creatinine 0.79(L) 0.80 - 1.50 mg/dL [facility] Sodium 139 135 - 145 mmol/L [facility] Potassium 4.7 3.5 - 5.0 mmol/L [facility] Comment: result rechecked-EWR Please note: ??Patients with WBC >100,000 may have falsely elevated Potassium levels. ??For accurate Potassium quantification in these patients send serum separator tube (gold top) for subsequent determinations. ??Contact the Clinical Chemistry Laboratory if there are any questions. Chloride 105 98 - 107 mmol/L [facility] Carbon Dioxide 25 22 - 31 mmol/L [facility] Anion Gap 9 5 - 15 mmol/L [facility] Calcium 9.0 8.5 - 10.5 mg/dL [facility] Est Glomerular Filtration Rate 102 >=60 mL/min/1. 73 m?? [facility] Comment: This patient's estimated GFR was [...] Guillen MD CHEMISTRY ORDERABLES Performing Organization Address City/State/[facility] Co de Phone Number [facility] [place] [address] * CARDIAC CATHETERIZATION (09/04/2022 9:31 AM EDT) Anatomical Region Laterality Modality Other Narrative 09/04/2022 1:22 PM EDT ?[facility] ? Cardiac Catheterization/Intervention Report ? Patient Name: Cony, Conner ? Procedure Date: 09/04/2022 ? A #: [id number] ? Primary Physician: Young, Omar N ? Case #: [id number] ? File Name: [id number] ? Catheterization Order Number: [id number] ? [facility] ? Final Report [place], [place] ? Patient Name: ? Conner Cony ?ID#: ?[id number] ? : ?1960 ? Procedure Date: ? September 04, 2022 ? Case #: ? [id number] ? Room: ? 5 ? Case Physician: ? Omar Saini M.D. ?Start: ?08:39 ?Fellow: ? Marquis Ramirez M.D. ?Admission: ??09/02/2022 ?Jason Rodríguez Jr., M.D. ? Referring Physician: ??Mitchell [...] procedure was Urgent. 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 Chest pain symptom [...] right heart ?catheterization and oximetry. ? Omar Saini M.D. ? Electronically Signed by: Omar Saini M.D. ? Report Finalized: 09/04/2022 ??13:16 ? Omar Saini MD CARDIAC CATH ORDERAB LES * Magnesium (09/03/2022 8:52 PM EDT) Magnesium 0.79 0.69 - 1.07 mmol/L [facility] Blood 09/03/2022 8:52 PM EDT 09/03/2022 9:11 PM EDT Narrative Resulting Agency Comment Spec In Lab Pasha Guillen MD CHEMISTRY ORDERABLES [facility] [place] [address] * Basic Metabolic Panel (non-fasting) (09/03/2022 8:52 PM EDT) Glucose 159 65 - 199 mg/dL [facility] Comment:Diabetes: >=200 mg/d L plus symptoms Blood Urea Nitrogen 17 10 - 20 mg/dL [facility] Creatinine 0.85 0.80 - 1.50 mg/dL [facility] Sodium 142 135 - 145 mmol/L [facility] Potassium 3.5 3.5 - 5.0 mmol/L [facility] Comment: Please note: ??Patients with WBC >100,000 may have falsely elevated Potassium levels. ??For accurate Potassium quantification in these patients send serum separator tube (gold top) for subsequent determinations. ??Contact the Clinical Chemistry Laboratory if there are any questions. Chloride 104 98 - 107 mmol/L [facility] Carbon Dioxide 25 22 - 31 mmol/L [facility] Anion Gap 13 5 - 15 mmol/L [facility] Calcium 9.5 8.5 - 10.5 mg/dL [facility] Est Glomerular Filtration Rate 99 >=60 mL/min/1. 73 m?? [facility] Comment: This patient's estimated GFR was [...] In Lab Pasha Guillen MD CHEMISTRY ORDERABLES [facility] [address] * (ABNORMAL) Troponin (09/03/2022 9:43 AM EDT) Troponin-T, High Sensitivity 46(H) <=22 ng/L [facility] Comment: This patient's troponin T concentration [...] troponin value can be found in the [facility] Laboratory Test Catalog Troponin - [facility] Laboratory Test Catalog Reference: Fourth [place] Definition of Myocardial Infarction. Journal of the [place] [employer] 2018;72:9199-7455 Blood 09/03/2022 9:43 AM EDT 09/03/2022 9:57 AM EDT Narrative Resulting Agency Comment Spec In Lab Pasha Guillen MD CHEMISTRY ORDERABLES [facility] [place] [address] * ECHO COMPLETE (09/03/2022 8:44 AM EDT) Anatomical Region Laterality Modality Cardiac Other 09/03/2022 6:53 AM EDT Narrative 09/03/2022 9:19 AM EDT ? Echocardiogram Report Name: CONNER BRIDGES ?Study Date: 09/03/2022 06:53 AMBP: 137/65 mmHg ? Patient Location: [facility] 0442 A : 1960 ? Height: 170 cm ? Account: [id number] Age: 62 yrs ? Weight: 101 kg Gender: Male ?BSA: 2.1 m2 Ordering Physician: ANNAMARIE MENDOZA Referring Physician: MITCHELL PARSONS Performed By: GLORIA Ledezma Reason For Study: Hypertension Exam Location: [facility]. Interpretation Summary -Left ventricle is severely dilated. [...] findings. No comparison study is available. Procedure Complete-[id number]. Satisfactory quality. There is normal sinus rhythm. [...] Russell MD - 09/03/2022 Echocardiogram Report Name: CONNER BRIDGES Study Date: 306:53 AMBP: 137/65 mmHg Patient Location: [address] : 1960 Height: 170 cm Account: [id number] Age: 62 yrs Weight: 101 kg Gender: Male BSA: 2.1 m2 Ordering Physician: ANNAMARIE MENDOZA Referring Physician: MITCHELL PARSONS Performed By: GLORIA Ledezma Reason For Study: Hypertension Exam Location: [facility]. Interpretation Summary -Left ventricle is severely dilated. [...] findings. No comparison study is available. Procedure Complete-[id number]. Satisfactory quality. There is normal sinus rhythm.Ventricular [...] 2.1 cm SI(LVOT): 43.4ml/m2 Doppler TR max bret: 336.0 cm/sec RVSP(TR): [...] 6:00 AM EDT) Neutrophil % 58.7 % [facility] Neutrophil Absolute 5.35 1.70 - 6.10 x10(3)/[facility] LABORAT[facility] Lymph % 27.3 % [facility] Lymphocytes Abs 2.5 0.9 - 3.2 x10(3)/[facility] Monocyte % 9.3 % [facility] Monocyte Abs 0.8 0.3 - 0.9 x10(3)/[facility]OR[facility] Eos % 3.8 % [facility] Eosinophils Abs 0.4 0.0 - 0.4 x10(3)/[facility]OR[facility] Basophil % 0.7 % [facility] Baso Absolute 0.1 0.0 - 0.1 x10(3)/[facility] Immature Gran % 0.20 % [facility] Comment: Immature granulocytes(IG's)percentage and absolute count will include metamyelocytes, myelocytes, and promyelocytes. Blood smears from CBCs yielding IG's will be scanned manually for concordance. If this scan disagrees with the automated IG or if promyelocytes are noted, a manual differential will be performed. Immature Gran Absolute 0.02 0.00 - 0.04 x10(3)/[facility] Blood 09/03/2022 6:00 AM EDT 09/03/2022 6:08 AM EDT Narrative Resulting Agency Comment Spec In Lab Iliana Cuevas MD HEMATOLOGY ORDERABLE S [facility] [place] [address] * Hemogram (09/03/2022 6:00 AM EDT) Pathologist [facility] White Blood Cell 9.1 4.0 - 9.5 x10(3)/[facility] Red Blood Cell 5.07 4.58 - 5.54 x10(6)/[facility] Hemoglobin 15.4 13.7 - 16.5 g/dL [facility] Hematocrit 46.7 40.5 - 48.5 % [facility] Mean Cell Volume 92.1 82.9 - 93.1 fL [facility] Mean Cell Hemoglobin 30.4 27.5 - 32.1 pg [facility] Mean Cell Hemoglobin Concentration 33.0 32.0 - 35.7 g/dL [facility] Platelet 171 145 - 357 x10(3)/[facility] LABORATORY RDW Standard Deviation 42.7 36.0 - 45.0 fL [facility] RDW coefficient of variation 12.6 11.4 - 13.8 % [facility] Mean Platelet Volume 10.0 7.6 - 12.9 fL [facility] NRBC% auto 0.0 % [facility] NRBC Absolute 0.000 0.000 - 0.000 x10(3)/[facility] LABORATORY Blood 09/03/2022 6:00 AM EDT 09/03/2022 6:08 AM EDT Narrative Resulting Agency Comment Spec In Lab Iliana Cuevas MD HEMATOLOGY ORDERABLE S Performing Organization Address City/State/[facility] Co de Phone Number [facility] [place] [address] * (ABNORMAL) Troponin (09/03/2022 6:00 AM EDT) Pathologist [facility] Troponin-T, High Sensitivity 52(H) <=22 ng/L [facility] Comment: This patient's troponin T concentration [...] troponin value can be found in the [facility] Laboratory Test Catalog Troponin - [facility] Laboratory Test Catalog Reference: Fourth [place] Definition of Myocardial Infarction. Journal of the [place] [employer] 2018;72:3044-0440 Blood 09/03/2022 6:00 AM EDT 09/03/2022 6:07 AM EDT Narrative Resulting Agency Comment Spec In Lab Pasha Guillen MD CHEMISTRY ORDERABLES [facility] [place] [address] * Heparin (unfractionated) Level (09/03/2022 6:00 AM EDT) UF Heparin 0.05 IU/mL [facility] Comment: Heparin (anti-Xa) levels [...] Lab Annamarie Mendoza MD HEMATOLOGY ORDERABLE S [facility] [address] * Lipid Panel (Reflex Direct LDL) (09/03/2022 6:00 AM EDT) Cholesterol, Total 105 mg/dL [facility] Comment: Lower Risk: <200 mg/dL Average Risk: 200-239 mg/dL Higher Risk: >hk=689 mg/dL Triglyceride 132 mg/dL [facility] Comment: Average Risk/Lower Risk: <150 mg/dL Borderline High Risk: 150-199 mg/dL High Risk: 200-499 mg/dL Very High Risk: >bd=828 mg/dL HDL Cholesterol 38 mg/dL [facility] Comment: Males: ?? Higher Risk: <40 mg/dL Females: ?? Higher Risk: <50 mg/dL LDL Cholesterol 41 mg/dL [facility] Comment: Lowest Risk: <100 mg/dL Lower Risk: 100-129 mg/dL Borderline High Risk: 130-159 mg/dL High Risk: 160-189 mg/dL Very High Risk: >tv=565 mg/dL Cholesterol/HDL Ratio 2.8 ratio [facility] Lipid Interpretation See Note [facility] Comment: Lipid management should be guided by a patient? s ASCVD risk, goals and preferences. ACC/AHA Guidelines recommend high intensity statin if clinical ASCVD or LDL greater than or equal to 190 mg/dL. http://[employer].com/GBE-HJG-Wqigwrufx Adults aged 40-75 with LDL 70-189 mg/dL should have their 10 year ASCVD risk estimated with the ACC/AHA ASCVD risk utilities estimator and drafter http://tools.acc.org/DQCUT-Aaot-Vogqjkrqd/ Statin should be discussed if risk greater [...] Mendoza MD CHEMISTRY ORDERABLES Performing Organization Address [facility] Co de Phone Number [facility] [place] [address] * Urinalysis with reflex Culture (09/03/2022 1:43 AM EDT) Glucose, Urine Dipstick Negative Negative mg/dL [facility] Protein, Urine Dipstick Negative Negative mg/dL [facility] Bilirubin, Urine Dipstick Negative Negative mg/dL [facility] Comment: Clinical correlation required for positive Urine Bilirubin results as false positive may occur with some drugs and drug related products. If a false positive is suspected a serum total bilirubin should be considered if clinically indicated. Urobilinogen, Urine Dipstick Normal Normal mg/dL [facility] pH, Urn (dipstick) 6.0 5.0 - 8.0 [facility] Blood, Urine Dipstick Negative Negative mg/dL [facility] Ketone, Urine Dipstick Negative Negative mg/dL [facility] Nitrite, Urine Dipstick Negative Negative [facility] Leukocytes, Urine Dipstick Negative Negative mcL [facility] Appearance, Urine Dipstick Clear Clear [facility] Specific [place] Urine Automated 1.009 1.005 - 1.030 [facility] Color, Urine Dipstick Yellow Yellow [facility] Reflex to Culture No [facility] Urine 09/03/2022 1:43 AM EDT 09/03/2022 1:51 AM EDT Narrative Resulting Agency Comment Spec In Lab Annamarie Mendoza MD URINE ORDERABLES Performing Organization Address [facility]/ZIP Co de Phone Number [facility] [place] [address] * (ABNORMAL) Differential, Automated (09/03/2022 12:06 AM EDT) Neutrophil % 62.6 % [facility] Neutrophil Absolute 6.26(H) 1.70 - 6.10 x10(3)/mc L [facility] Lymph % 26.1 % [facility] Lymphocytes Abs 2.6 0.9 - 3.2 x10(3)/mc L [facility] Monocyte % 7.0 % [facility] Monocyte Abs 0.7 0.3 - 0.9 x10(3)/ L [facility] Eos % 3.1 % [facility] Eosinophils Abs 0.3 0.0 - 0.4 x10(3)/[facility] LABORATORY Basophil % 0.9 % [facility] Baso Absolute 0.1 0.0 - 0.1 x10(3)/ L [facility] Immature Gran % 0.30 % [facility] Comment: Immature granulocytes(IG's)percentage and absolute count will include metamyelocytes, myelocytes, and promyelocytes. Blood smears from CBCs yielding IG's will be scanned manually for concordance. If this scan disagrees with the automated IG or if promyelocytes are noted, a manual differential will be performed. Immature Gran Absolute 0.03 0.00 - 0.04 x10(3)/ L [facility] Blood 09/03/2022 12:0 6 AM EDT 09/03/2022 12:12 AM EDT Narrative Resulting Agency Comment Spec In Lab Iliana Cuevas MD HEMATOLOGY ORDERABLE S [facility] [place] [address] * (ABNORMAL) Hemogram (09/03/2022 12:06 AM EDT) White Blood Cell 10.0(H) 4.0 - 9.5 x10(3)/mc L [facility] Red Blood Cell 4.92 4.58 - 5.54 x10(6)/mc L [facility] Hemoglobin 15.0 13.7 - 16.5 g/dL [facility] Hematocrit 45.2 40.5 - 48.5 % [facility] Mean Cell Volume 91.9 82.9 - 93.1 fL [facility] Mean Cell Hemoglobin 30.5 27.5 - 32.1 pg [facility] Mean Cell Hemoglobin Concentration 33.2 32.0 - 35.7 g/dL [facility] Platelet 160 145 - 357 x10(3)/mc L [facility] RDW Standard Deviation 43.3 36.0 - 45.0 fL [facility] RDW coefficient of variation 12.8 11.4 - 13.8 % [facility] Mean Platelet Volume 10.0 7.6 - 12.9 fL [facility] NRBC% auto 0.0 % [facility] NRBC Absolute 0.000 0.000 - 0.000 x10(3)/mc L [facility] Blood 09/03/2022 12:0 6 AM EDT 09/03/2022 12:12 AM EDT Narrative Resulting Agency Comment Spec In Lab Iliana Cuevas MD HEMATOLOGY ORDERABLE S Performing Organization Address [facility] Co de Phone Number [facility] [place] [address] * APTT (09/03/2022 12:06 AM EDT) Partial Thromboplastin Time 33 25 - 37 sec [facility] Comment: The PTT is NOT appropriate for heparin monitoring. Use the Anti-Xa level for heparin monitoring (HEP UFH) or LMWH monitoring (HEP LMW). A PTT less than 37 seconds generally indicates adequate hemostasis. Blood 09/03/2022 12:0 6 AM EDT 09/03/2022 12:12 AM EDT Narrative Resulting Agency Comment Spec In Lab Annamarie Mendoza MD HEMATOLOGY ORDERABLE S Performing Organization Address City/[facility] Co de Phone Number [facility] [place] [address] * (ABNORMAL) Prothrombin Time (09/03/2022 12:06 AM EDT) Prothrombin Time 12.9(H) 9.4 - 12.5 sec [facility] International Normalization Ratio 1.1 [facility] Comment: An INR <2.0 indicates adequate [...] MD HEMATOLOGY ORDERABLE S Performing Organization Address [facility] Co de Phone Number [facility] [place] [address] * Hepatic Function Panel (09/03/2022 12:06 AM EDT) Protein, Total 6.6 6.1 - 8.0 g/dL [facility] Albumin 4.1 3.2 - 5.2 g/dL [facility] Aspartate Aminotransferase 13 0 - 39 unit/L [facility] Alanine Aminotransferase 16 0 - 55 unit/L [facility] Alkaline Phosphatase 59 40 - 130 unit/L [facility] Bilirubin, Total 1.1 0.2 - 1.3 mg/dL [facility] Bilirubin, Direct 0.3 0.0 - 0.3 mg/dL [facility] Blood 09/03/2022 12:0 6 AM EDT 09/03/2022 12:12 AM EDT Narrative Resulting Agency Comment Spec In Lab Annamarie Mendoza MD CHEMISTRY ORDERABLES Performing Organization Address [facility] [place] [address] * (ABNORMAL) pro-Brain Natriuretic Peptide (09/03/2022 12:06 AM EDT) NT-proBNP 1,871(H) <=124 pg/mL [facility] Blood 09/03/2022 12:0 6 AM EDT 09/03/2022 12:12 AM EDT Narrative Resulting Agency Comment Spec In Lab Annamarie Mendoza MD CHEMISTRY ORDERABLES Performing Organization Address [facility] Co de Phone Number [facility] [place] [address] * TSH (09/03/2022 12:06 AM EDT) Thyroid Stimulating Hormone 1.74 0.27 - 4.20 mcIU/mL [facility] Comment: Reference Interval (mcIU/mL): Females: ??First Trimester: 0.23-3.88 ??Second Trimester: 0.22-3.90 ??Third Trimester: 0.44-4.66 Blood 09/03/2022 12:0 6 AM EDT 09/03/2022 12:12 AM EDT Narrative Resulting Agency Comment Spec In Lab Annamarie Mendoza MD CHEMISTRY ORDERABLES Performing Organization Address City/[facility] Co de Phone Number [facility] [place] [address] * Phosphorus (09/03/2022 12:06 AM EDT) Phosphorus 3.7 2.5 - 4.5 mg/dL [facility] Blood 09/03/2022 12:0 6 AM EDT 09/03/2022 12:12 AM EDT Narrative Resulting Agency Comment Spec In Lab Annamarie Mendoza MD CHEMISTRY ORDERABLES Performing Organization Address [facility] Co de Phone Number [facility] [place] [address] * Magnesium (09/03/2022 12:06 AM EDT) Magnesium 0.76 0.69 - 1.07 mmol/L [facility] Blood 09/03/2022 12:0 6 AM EDT 09/03/2022 12:12 AM EDT Narrative Resulting Agency Comment Spec In Lab Annamarie Mendoza MD CHEMISTRY ORDERABLES Performing Organization Address [facility] Co de Phone Number [facility] [place] [address] * Calcium (09/03/2022 12:06 AM EDT) Calcium 9.2 8.5 - 10.5 mg/dL [facility] Blood 09/03/2022 12:0 6 AM EDT 09/03/2022 12:12 AM EDT Narrative Resulting Agency Comment Spec In Lab Annamarie Mendoza MD CHEMISTRY ORDERABLES [facility] [address] * Basic Metabolic Panel (non-fasting) (09/03/2022 12:06 AM EDT) Glucose 124 65 - 199 mg/dL [facility] Comment:Diabetes: >=200 mg/d L plus symptoms Blood Urea Nitrogen 16 10 - 20 mg/dL [facility] Creatinine 0.81 0.80 - 1.50 mg/dL [facility] Sodium 143 135 - 145 mmol/L [facility] Potassium 4.1 3.5 - 5.0 mmol/L [facility] Comment: Please note: ??Patients with WBC >100,000 may have falsely elevated Potassium levels. ??For accurate Potassium quantification in these patients send serum separator tube (gold top) for subsequent determinations. ??Contact the Clinical Chemistry Laboratory if there are any questions. Chloride 107 98 - 107 mmol/L [facility] Carbon Dioxide 24 22 - 31 mmol/L [facility] Anion Gap 12 5 - 15 mmol/L [facility] Calcium 9.2 8.5 - 10.5 mg/dL [facility] Est Glomerular Filtration Rate 101 >=60 mL/min/1. 73 m?? [facility] Comment: This patient's estimated GFR was [...] In Lab Annamarie Mendoza MD CHEMISTRY ORDERABLES [facility] [place] [address] * EKG 12 Lead (09/02/2022 9:48 PM EDT) Ventricular rate 56 BPM MUSE SYSTEM Atrial Rate 56 BPM MUSE SYSTEM P-R Interval 204 ms MUSE SYSTEM QRS Duration 132 ms MUSE SYSTEM Q-T Interval 450 ms MUSE SYSTEM QTC Calculated (Bezet) 434 ms MUSE SYSTEM Calculated P Russell 21 degrees MUSE SYSTEM Calculated R Russell 3 degrees MUSE SYSTEM Calculated T Russell 109 degrees MUSE SYSTEM INTERPRETATION Sinus bradycardia Left ventricular hypertrophy with QRS widening and repolarization abnormality ( [place] product ) Cannot rule out Septal infarct , age undetermined Abnormal ECG No previous ECGs available Confirmed by MD Mindy, Pasha ([id number]) on 09/03/2022 10:27:11 AM MUSE SYSTEM 09/02/2022 9:48 PM EDT 09/03/2022 10:27 AM EDT Annamarie Mendoza MD ECG ORDERABLES MUSE SYSTEM documented in this encounter Visit Diagnoses Not on filedocumented in this encounter Admitting Diagnoses Diagnosis Aortic [...] AM EDT 81 mg atorvastatin (Lipitor) tablet 80 mg 80 mg, Oral, EVERY EVENING, First dose (after last modification) on Thu09/04/22 at 1700, Until Discontinued, Routine fentaNYL (pf) (50 mcg/mL) multi-dose injection ONCE PRN, Starting on Thu09/04/22 at 0838, Until Thu09/04/22 at 0936, Intra-Operative (Intra-Procedure), Routine Given 09/04/2022 8:47 AM EDT 25 mcg Given 09/04/2022 8:38 AM EDT 25 mcg furosemide (Lasix) tablet 20 mg 20 mg, Oral, DAILY, First dose on Thu09/04/22 at 1015, Until Discontinued, Routine Given 09/04/2022 11:00 AM EDT 20 mg heparin (porcine) (1,000 units/mL) injection ONCE PRN, Starting on Thu09/04/22 at 0903, Until Thu09/04/22 at 0936, Intra-Operative (Intra-Procedure), Routine Given 09/04/2022 9:03 AM EDT 5,000 Units iohexoL (Omnipaque) (350 mg/mL) solution ONCE PRN, Starting on Thu09/04/22 at 0934, Until Thu09/04/22 at 0936, Intra-Operative (Intra-Procedure), Routine Given 09/04/2022 9:34 AM EDT 84 mLs lidocaine (Xylocaine) 1% (10 mg/mL) injection ONCE PRN, Starting on Thu09/04/22 at 0836, Until Thu09/04/22 at 0936, Intra-Operative (Intra-Procedure), Routine Given 09/04/2022 8:36 AM EDT 10 mLs losartan (Cozaar) tablet 100 mg 100 mg, Oral, DAILY, First dose on Thu09/03/22 at 0900, Until Discontinued, Routine Given 09/04/2022 8:15 AM EDT 100 mg Given 09/03/2022 9:56 AM EDT 100 mg metoprolol succinate XL (Toprol-XL) tablet 25 mg 25 mg, Oral, DAILY, First dose on Thu09/03/22 at 0900, Until Discontinued, DO NOT CRUSH OR OPEN, Routine Given 09/04/2022 8:17 AM EDT 25 mg Given 09/03/2022 9:56 AM EDT 25 mg midazolam (pf) (Versed) (1 mg/mL) multi-dose injection ONCE PRN, Starting on Thu09/04/22 at 0838, Until Thu09/04/22 at 0936, Intra-Operative (Intra-Procedure), Routine Given 09/04/2022 9:02 AM EDT 0.5 mg Given 09/04/2022 8:38 AM EDT 1 mg psyllium (unsweetened) packet 1 packet 1 packet, Oral, 2 TIMES DAILY, First dose on Thu09/03/22 at 0900, Until Discontinued, Mix each packet with 8 ounces of water. Given 09/03/2022 9:56 AM EDT 1 pa cket sodium chloride 0.9 % (flush) (BD PosiFlush [...] EDT 5 mLs sodium chloride 0.9% infusion CONTINUOUS PRN, Starting on Thu09/04/22 at 0836, Until Thu09/04/22 at 0936, Intra-Operative (Intra-Procedure) New Bag 09/04/2022 8:36 AM EDT 1 mL/hr 1 mL/hr verapamiL (Isoptin) (2.5 mg/mL) injection ONCE PRN, Starting on Thu09/04/22 at 0847, Until Thu09/04/22 at 0936, Administer over 2 Minutes, Intra-Operative (Intra-Procedure) Given 09/04/2022 8:47 AM EDT 2.5 mg documented in this encounter Active and [...] - Reason: Transfer to a Procedural area)1015 ([facility] Unhold - Provider: Admin Adt) atorvastatin (Lipitor) tablet 20 mg (CANCELED) 20 mg, Oral, EVERY EVENING, First dose on Thu09/02/22 at 2345, Until Discontinued, Routine 2254 (Given - Provider: Acacia Hernandez, XI) 1730 (Given - Provider: Diana Rojo RN) atorvastatin (Lipitor) tablet 80 mg 80 mg, Oral, EVERY EVENING, First dose (after last modification) on Thu09/04/22 at 1700, Until Discontinued, Routine 0825 (JUL Hold - Provider: Admin Adt - Reason: Transfer to a Procedural area)1015 ([facility] Unhold - Provider: Admin Adt) furosemide (Lasix) [...] 0815 (Given - Provider: Diana Rojo RN)0825 ([facility] Hold - Provider: Admin Adt - Reason: Transfer to a Procedural area)1015 ([facility] Unhold - Provider: Admin Adt) magnesium sulfate 2 g in sterile water 50 mL infusion (COMPLETED) 2 g, Intravenous, ONCE, 1 dose, On Thu09/04/22 at 0030, Administer over 120 Minutes 0000 (New Bag - Provider: Jesica Ashby, XI)0200 (Stopped - Provider: Patricia Lutz RN) metoprolol succinate XL (Toprol-XL) tablet 25 mg 25 mg, Oral, DAILY, First dose on Thu09/03/22 at 0900, Until Discontinued, DO NOT CRUSH OR OPEN, Routine 0956 (Given - Provider: Diana Rojo RN) 0817 (Given - Provider: Diana Rojo RN)0825 ([facility] Hold - Provider: Admin Adt - Reason: Transfer to a Procedural area)1015 ([facility] Unhold - Provider: Admin Adt) potassium chloride [...] Diana Rojo RN)2100 (Not Given - Provider: Jesica Ashby RN - Reason: Patient/family refused) 0825 ([facility] Hold - Provider: Admin Adt - Reason: Transfer to a Procedural area)0900 (Not Given - Provider: Diana Rojo RN - Reason: Patient not available)1015 ([facility] Unhold - Provider: Admin Adt) sodium chloride 0.9 % (flush) (BD PosiFlush Normal Saline 0.9) flush 5 mL 5 mL, Intravenous, 2 TIMES DAILY, First dose on Thu09/02/22 at 2345, Until Discontinued, Routine 2345 (Given - Provider: Acacia Hernandez RN) 1001 (Given - Provider: Diana Rojo RN)2107 (Given - Provider: Jesica Ashby, XI) 0825 ([facility] Hold - Provider: Admin Adt - Reason: Transfer to a Procedural area)0900 (Not Given - Provider: Diana Rojo RN - Reason: Order parameters not met)1015 ([facility] Unhold - Provider: Admin Adt) sodium chloride 0.9 % (flush) (BD PosiFlush Normal Saline 0.9) flush 5 mL 5 mL, Intravenous, 2 TIMES DAILY, First dose on Thu09/02/22 at 2345, Until Discontinued, Routine 2256 (Given - Provider: Acacia Hernandez RN) 0957 (Given - Provider: Diana Rojo RN)2106 (Given - Provider: Jesica Ashby, XI) 0825 (J[facility] Hold - Provider: Admin Adt - Reason: Transfer to a Procedural area)0900 (Not Given - Provider: Diana Rojo RN - Reason: Patient not available)1015 ([facility] Unhold - Provider: Admin Adt) Continuous Medication [...] Heparin UFH Level - Per Protocol, Routine 2322 (New Bag - Provider: Acacia Hernandez RN) 0825 (Stopped - Provider: Diana Rojo RN) sodium chloride 0.9% infusion 100 mL/hr, Intravenous, CONTINUOUS, Starting on Chel[place] 09/04/22 at 1000, Until [place] 09/04/22 at 1359, Recovery (Recovery-Hospital Unit) 1000 (New Bag - Provider: Magdi Bee RN) PRN Medication Order 09/02/2022 09/03/2022 09/04/2022 acetaminophen (Tylenol) tablet 650 mg 650 mg, Oral, EVERY 4 HOURS PRN, Starting on 09/02/22 at 2245, Until Chelo [...] area)1015 ([facility] Unhold - Provider: Admin Adt) albuteroL (Proventil, Ventolin) (2.5 mg/3 mL) (0.083 %) nebulizer solution 2.5 mg 2.5 mg, Nebulization, EVERY 4 HOURS PRN, Starting on 09/02/22 at 2245, Until Chelo 09/04/22 at 1831, Wheezing, Routine 0825 (JUL Hold - Pro vider: Admin Adt - Reason: Transfer to a Procedural area)1015 ([facility] Unhold - Provider: Admin Adt) fentaNYL (pf) [...] [place] 09/04/22 at 0936, Intra-Operative (Intra-Procedure), Routine 902 (Given - Provid er: Gladis Bob RN) iohexoL (Omnipaque) (350 mg/mL) solution (CANCELED) ONCE PRN, Starting on Chel[place] 09/04/22 at 0934, Until [place] 09/04/22 at 0936, Intra-Operative (Intra-Procedure), Routine 933 (Given - Provid er: Omar Saini MD - Comment: Contrast in Display Artist) lidocaine (Xylocaine) 1% (10 mg/mL) injection 3 [...] [place] 09/04/22 at 0936, Intra-Operative (Intra-Procedure), Routine 835 (Given - Provid er: Jason Rodríguez Jr., MD - Comment: for cath sheath insertions) midazolam (pf) (Versed) (1 mg/mL) multi-dose injection (CANCELED) ONCE PRN, Starting on Chelo 09/04/22 at 0838, Until Chel[place] 09/04/22 at 0936, Intra-Operative (Intra-Procedure), Routine 837 (Given - Provid er: Gladis Bob RN)09 (Given - Provider: Gladis Bob RN) nitroGLYcerin (Nitrostat) disintegrating tablet 0.4 mg 0.4 mg, Sublingual, EVERY 5 MIN PRN, Starting on Thu09/02/22 at 2245, [...] - Reason: Transfer to a Procedural area)1015 ([facility] Unhold - Provider: Admin Adt) sodium chloride 0.9 % (flush) (BD PosiFlush Normal Saline 0.9) flush 5-20 mL 5-20 mL, Intravenous, EVERY 1 MIN PRN, Starting on Thu09/02/22 at 2245, Until Chelo 09/04/22 at 1831, flush, Flush pertains to all indwelling lines. Flush per protocol found in the job aid using the link provided on this medication record., Routine 0825 (JUL Hold - Pro vider: Admin Adt - Reason: Transfer to a Procedural area)1015 ([facility] Unhold - Provider: Admin Adt) sodium chloride 0.9 % (flush) (BD PosiFlush Normal Saline 0.9) flush 5-20 mL 5-20 mL, Intravenous, EVERY 1 MIN PRN, Starting on Thu09/02/22 at 2245, Until [place] 09/04/22 at 1831, flush, Flush pertains to all indwelling lines. Flush per protocol found in the job aid using the link provided on this medication record., Routine 0825 (JUL Hold - Pro vider: Admin Adt - Reason: Transfer to a Procedural area)1015 ([facility] Unhold - Provider: Admin Adt) sodium chloride 0.9% infusion (CANCELED) CONTINUOUS PRN, Starting on Chel[place] 09/04/22 at 0836, Until [place] 09/04/22 at 0936, Intra-Operative (Intra-Procedure) 0836 (New Bag - Prov ider: Gladis Bob RN - Comment: Display Artist Flush Line) verapamiL (Isoptin) (2.5 mg/mL) injection (CANCELED) ONCE PRN, Starting on [place] 09/04/22 at 0847, Until [place] 09/04/22 at 0936, Administer over 2 Minutes, Intra-Operative (Intra-Procedure) 0847 (Given - Provid er: Jason Rodríguez Jr., MD - Comment: per Radial Protocol) Linked Groups Order Group 1: heparin (porcine) 50 units/mL in dextrose 5% 500 mL infusion (CANCELED)[facility] 0-5,000 Units/hr (0-100 mL/hr), Intravenous, CONTINUOUS, Starting [...] Routine documented in this encounter Care Teams Regional Engineer Relationship Specialty Start Date End Date Tono Montero MD PCP - General Family Medicine 09/02/22 documented as of this encounter
--- OUTSIDE RECORDS SUMMARY | 2024-02-25 10:39 | XMS_ITS | Encounter Summary ---
[place] [address] Care Team Providers Care Cytology Laboratory Manager Name Role Phone Chicho Helen Bravo APRN Primary Care Provider [phone] Encounter Details Date Type Department Care Team (Latest Contact Info) Description 06/18/2015 7:40 AM EST Laboratory Appointment Lab [address] [place] [address] Sleep apnea, unspecified type Social History Tobacco Use Types [...] Procedure Name Priority Date/Time Associated Diagnosis Comments PLATELET COUNT Routine 06/18/2015 7:44 AM EST Sleep apnea, unspecified type documented in this encounter Results * Platelet count (06/18/2015 7:44 AM EST) Platelet 216 145 - 370 x10(3)/mcL [facility] Blood specimen (specimen) 06/18/2015 7:44 AM EST 06/18/2015 7:50 AM EST Narrative Resulting Agency Comment Spec In Lab Jesi Malik MD HEMATOLOGY ORDERABLE S [facility] documented in this encounter Visit Diagnoses Diagnosis Sleep apnea, unspecified type documented in this encounter Care Teams Cytology Laboratory Manager Relationship Specialty Start Date End Date Helen Valentino APRN PCP - General Family Medicine 06/18/15 12/08/18 documented as of this encounter
--- OUTSIDE RECORDS SUMMARY | 2024-02-25 10:39 | XMS_ITS | Encounter Summary ---
[facility] Organization [facility] [address] Care Team Providers Care Electric Meter Installer Helper Name Role Phone Tono Montero MD Primary Care Provider [phone] Encounter Details Date Type Department Care Team (Late st Contact Info) Description 09/09/2022 1:00 PM EDT Clinical [place] [address] Social History Tobacco Use Types Packs/Day Years Used Date Smoking Tobacco: Former Cigarettes 1 45 0 08/23/1977 - 08/23/2022 e-Cigarettes Smokeless Tobacco: Never Alcohol Use Standard Drinks/Week Comments Yes 0 (1 standard drink = 0.6 oz pur e alcohol) No ETOH since 4.1.23 Sex and Gender Information Value Date Recorded Sex Assigned at Male 12/27/2022 9:49 AM EDT Gender Identity Male 12/27/2022 9:49 AM EDT Sexual Orientation Straight 12/27/2022 9: 49 AM EDT documented as of this encounter Progress Notes * Eric Vasquez RN - 09/09/2022 1:00 PM EDT PCC questionnaire reviewed with patient and Korina whittaker) while in Pre Admission testing. Pre-operative instruction booklet reviewed with patient. Reviewed importance of pain control and cough and deep breathing exercise during the post-operative period. Instructed patient on use of Hibiclens soap to shower with the night before surgery or the morning of surgery. Pt verbalizes good understanding of all information reviewed. Pt aware they will receive Cardiac Surgery folder. Pt to bring booklet DOS. Please watch our video A Patient's Guide to Cardiac Surgery prior to your surgery. Please call the office ([phone]) if you need us to email you a link or would like to request a DVD. To view video: 1. Go to your internet browser and type [email or web address] 2. Search: [facility] [place] 3. Video should be 1st on the list. Pre Surgery Covid screening: Were you diagnosed with COVID 19 or had symptoms consistent with COVID19 within the last 3 months? No PLAN Testing: Labs, T&S, sent to xray Special medication instructions: Procedure date: NB. Dr. Chavarria documented in this encounter Plan of Treatment Not on file documented as of this encounter Visit Diagnoses Not on filedocumented in this encounter Care Teams Electric Meter Installer Helper Relationship Specialty Start Date End Date Tono Montero MD PCP - General Family Medicine 09/02/22 documented as of this encounter
--- OUTSIDE RECORDS SUMMARY | 2024-02-25 10:39 | XMS_ITS | Encounter Summary ---
Author Organization [facility] [place] [address] Care Team Providers Care Hand Booked Folder And Stitcher Name Role Phone Tono Montero MD Primary Care Provider [phone] Reason for Visit * Auth/Cert (Routine) Specialty Diagnoses / Procedures Referred By Mounika t Referred To Contact Diagnoses Ascending aortic aneurysm [...] HARVEST VEIN(S) FOR CABG (WRVU 0.31) Mono Chavarria MD [facility] Referral ID Status Reason Start Date Expiration Date Visits Re quested Visits Authorized [id number] 1 1 Encounter Details Date Type Department Care Team (Late st Contact Info) Description 09/18/2022 12:06 PM EDT Anesthesia Event [place] [id number] Kiran Fernandes MD [facility] [place] [address] Thiago Barba MD [facility] [place] [address] Anesthesia Record Procedure Summary Procedure Name Responsible Anesthesiologist Anesthesia Start Time Anesthesia Stop Time @ASCEND AORTA GRAFT, W\CPB, W\WO VALVE SUSPEN; W\ AORTIC ROOT REPLCMNT (WRVU 58.79) (Chest) Kiran Fernandes MD 09/18/22 1206 09/18/22 1812 Events Date Time Event Comment 09/18/2022 1202 1206 AN Verify 1206 Start 1206 An Start Data 1221 An Induction 1226 An Intubation 1230 JETHRO w/ REPORT 1251 Anesthesia Ready 1309 Procedure Start 1313 Sternotomy 1318 Heparin 1328 AN AORTIC CANNULA 1336 CV Bypass init 1341 An Clamp start 1421 An Data Art Falsely high (1 40mm Hg) R arterial line pressure transduced on bypass. Starting erroneous data 1409. Exchanged neuron pressure box with MPP of ~30mm Hg. Exchanged cable with same result. Exchanged triple transducer with same result. MAP 37 mm Hg. 60cc UOP since beginning of CPB. Goal mean perfusion pressure on bypass 50-60 mm Hg. 1452 Rewarming 1510 An Clamp Remove 1513 CP Bypass Ended 1521 An Data Art MAP on CPB circ uit reading 24mmHg higher than radial arterial line 1609 Quick Note Packed posterio r surgicell for surgicell slow venous bleed. Temporarily lost inferior and septal wall motion that was recovered when removing surgicell. Thought to be compressing graft. Recovered wall motion after removing 1622 Quick Note Rise in BP shabnam esponding with return of wall motion 1701 Chest Closed 1719 Procedure Stop 1728 Quick Note Waiting for fac tor VII from blood bank prior to rolling to CVICU 1811 an stop data 1811 Recovery or ICU Handoff Eleanor ent care was transferred to the destination unit staff after review of the patient's medical history, current anesthetic/surgical status and plan, according to the Provider Handoff Checklist. 1811 Stop Meds Name Total Midazolam 6 mg fentaNYL 1,000 mcg Propofol 500 mg Propofol INF 426.85 mg niCARdipine INF 0.92 mg Rocuronium 250 mg Heparin 35,000 Units Tranexamic Acid 1,000 mg Tranexamic Acid INF 479.29 mg cefTRIAXone 2 g NORepinephrine INF 278 mcg EPINEPHrine INF 140 mcg niCARdipine 0.4 mg Calcium Chloride 2,000 mg desmopressin (Ddavp) 30.08 mcg in sodium chloride 0.9% 57.52 mL 30.08 mcg NORepinephrine 16 mcg nitroGLYCERIN INF 960 mcg Lactated Ringers 700 mL Sodium Chloride 0.9% 1,350 mL Sodium Chloride 0.9% 200 mL * Agents Name O2 Air N2O Isoflurane (et) * Blood No blood administrations on file. Lines, Drains, and Airways Type Details Placement Removal (RETIRED) Peripheral IV Line - Single Lumen 09/18/22; 1045; cephalic vein (lateral side of arm), left; [id number] catheter system; Anatomical Landmarks; US Not Used; 20 gauge; XI Caceres; tolerated well, appears comfortable; 09/18/22; 194109/18/22 1045 by Ysabel Reina RN 09/18/221941 by Fortunato Rodas RN Urethral Catheter 09/18/22; 1230; Surg mik longer than 2 hours, Use of large volume infusions, Need for intraoperative urine output monitoring, Physician order; indwelling catheter with core temperature probe; hydrophilic coated, latex; 14; inserted at this facility; 1; 5; 10; none; drainage bag to dependent drainage; 09/20/22; 1106 09/18/22 1230 by Rolanda Elliott RN 09/20/22 110 by Emperatriz Heard RN ETT Mask Ventilation: Ea sy (1); ETT Type: Cuffed; ETT Size: 8 mm; Mac Blade: 4; Notes: Asleep; Attempts: 1; Laryngoscopy Grade: 1; ETT Placement Verified By: Auscultation, Capnometry; Secured at Teeth: 23 cm; Inserted by: kiran fernandes; Removal Date: 09/19/22; Removal Time: 01009/18/22 1231 by Kiran Fernandes MD 09/19/22 010 by Obdulio Das, RT (RETIRED) Peripheral IV Line - Single Lumen 09/18/22; 1259; 09/19/22; 0023 (removed prior to shift) 09/18/22 1259 by Kiran Fernandes MD 09/19/22 0023 by Fortunato Rodas RN Arterial Line 09/18/22; 1259; radi al artery, right; 20 gauge; Anatomical Landmarks; continuous blood pressure monitoring, frequent blood gas measurement; marion barba; Sterile Prep, Sterile Gloves; 09/19/22; 1602 09/18/22 1259 by Kiran Fernandes MD 09/19/22 1602 by Bonita Delacruz, XI (RETIRED) Pulmonary Artery Catheter - Triple Lumen 09/18/22; 1259; Right; internal jugular vein; standard thermodilution catheter; 9 Fr; 09/19/22; 0533 09/18/22 1259 by Kiran Fernandes MD 09/19/22 0533 by Fortunato Rodas, XI (RETIRED) Percutaneous Central Line - Single Lumen 09/18/22; 1259; internal jugular vein, right; introducer; Ultrasound Guidance, Anatomical Landmarks; Yes - US guidance used for evaluation of potential access sites, vessel patency and realtime visualization of needle entry with permanent recording.; 9 Fr; JETHRO; 09/19/22; 1300 09/18/22 1259 by Kiran Fernandes MD 09/19/22 1300 by Bonita Delacruz RN Incision 09/18/22; 1308; midl ine; chest; vertical; 09/27/22; 1136 09/18/22 1308 by Rolanda Elliott RN 09/27/22 1136 by Oksana Patricia RN Incision 09/18/22; 1308; Righ t; knee; horizontal; 09/27/22; 1136 09/18/22 1308 by Rolanda Elliott RN 09/27/22 1136 by Oksana Patricia RN Incision 09/18/22; 1308; Righ t; groin; non-laparascopic puncture; EVH; 09/27/22; 1136 09/18/22 1308 by Rolanda Elliott RN 09/27/22 1136 by Oksana Patricia RN Drain/Device Site 09/18/22; 1453; Righ t; medial; leg; collapsible closed device; LINDA Quintanilla; Sterile prep and drape; 7mm round drain; 09/18/22; 2316 09/18/22 1453 by Roladna Elliott RN 09/18/22 2316 by Fortunato Rodas RN Chest Tube 09/18/22; 1512; Left ; mediastinum; 28Fr angled PVC posterior to heart; 09/22/22; 1207 (not present on admission) 09/18/22 1512 by Rolanda Elliott RN 09/22/22 1207 by Aretha Elizabeth RN Chest Tube 09/18/22; 1512; Righ t; mediastinum; 28Fr straight PVC anterior to heart; 09/22/22; 1208 (not present on admission) 09/18/22 1512 by Rolanda Elliott RN 09/22/22 1208 by Aretha Elizabeth RN Arterial Line 09/18/22; 1524; femo ral artery, right; 5 Fr; Anatomical Landmarks, Guidewire, Introducer Needle; continuous blood pressure monitoring; MD Deon; 0; Sterile prep and drape; 09/19/22; 0819 09/18/22 1524 by Rolanda Elliott RN 09/19/22 0819 by Bonita Delacruz RN documented in this encounter Social History Tobacco Use Types Packs/Day Years [...] AM EDT documented as of this encounter OR Notes * Anesthesia Postprocedure Evaluation - Thiago Barba MD - 09/18/2022 6:13 PM EDT Department of Anesthesiology Post-procedure Note Patient: Conner Donnelly Procedure Summary Date: 09/18/22 Room / Location: [facility] OR [address] [place] [address] MAIN OR Anesthesia Start: 1206 Anesthesia Stop: 1811 Procedures: @ASCEND AORTA GRAFT, W\CPB, W\WO VALVE SUSPEN; W\ AORTIC ROOT REPLCMNT (WRVU 58.79) (Chest) @CABG, VEIN ONLY; SINGLE CORONARY VENOUS GRAFT (WRVU 34.98) (Chest) ENDOSCOPIC HARVEST VEIN(S) FOR CABG (WRVU 0.31) (Right: Leg) Diagnosis: (ascending aortic root aneurysm, CAD) Surgeons: Mono Chavarria MD Responsible Provider: Kiran Fernandes MD Anesthesia Type: general ASA Status: 4 All Anesthesia Providers: Anesthesiologist: Kiran Fernandes MD Seconds Inspector: Thiago Barba MD Vitals Value Taken Time BP Temp 33.5 ??C (92.3 ??F) 09/18/22 1752 Pulse 80 09/18/22 1812 Resp 16 09/18/22 1812 SpO2 100 % 09/18/221811 Pain Level Vitals shown include unvalidated device data. Patient [facility]: [facility] Level of Consciousness: Sedated (Pharmacologic/Intentional) Pain Management: Satisfactory Analgesia PONV: None Cardiovascular Status: Respiratory Status: Intubated/Ventilated Postoperative Fluid Status: Possible Anesthetic Complications: NONE apparent at time of evaluation Final Primary Anesthesia Type: General (The anesthetic type performed was the same as planned.) Comments: * Anesthesia Preprocedure Evaluation - Kiran Fernandes MD - 09/17/2022 1:14 PM EDT Pre-Anesthesia Evaluation for: Conner Donnelly a 62 y.o. male. Procedure(s): @ASCEND AORTA GRAFT, W\CPB, W\WO VALVE SUSPEN; W\ AORTIC ROOT REPLCMNT (WRVU 58.79) @CABG, VEIN ONLY; SINGLE CORONARY VENOUS GRAFT (WRVU 34.98) ENDOSCOPIC HARVEST VEIN(S) FOR CABG (WRVU 0.31) Patient Active Problem List Diagnosis Date Noted ??? Aortic stenosis 09/02/2022 ??? Sleep apnea ??? Pleuritic chest pain ??? HTN (hypertension) Past Medical History: Diagnosis Date ??? Aortic aneurysm ??? Congenital heart defect ??? Coronary artery disease ??? CPAP (continuous positive airway pressure) dependence ??? Heart valve disease ??? High blood pressure ??? HTN (hypertension) ??? Hyperlipidemia ??? Obstructive sleep apnea ??? Pleuritic chest pain ??? Sleep apnea questionable, sleep center scheduled for 07/09/15 No past surgical history on file. Social History Tobacco Use ??? Smoking status: Former Packs/day: 1.00 Years: 45.00 Pack years: 45.00 Types: Cigarettes, e-Cigarettes Quit date: 08/23/2022 Years since quittin.0 ??? Smokeless tobacco: Never Substance Use Topics ??? Alcohol use: Yes Types: 6 Cans of beer per week Comment: No ETOH since 08.09.22 Social History Substance and Sexual Activity Drug Use Never No Known Allergies Medications: MAR and/or home medications have been reviewed. Physical Exam: Preprocedure Vitals Current as of 09/17/22 1314 No BP, pulse, respiration, SpO2, or temperature recorded. Height: Weight: BMI: IBW: Airway Assessment: Mallampati: II TM distance: >3 FB Neck ROM: full Cardiovascular Assessment: Rhythm: regular (+) murmur Pulmonary Assessment: pulmonary exam normal Dental Assessment: Misc Assessment: IV access: Peripheral line Last Filed Perioperative Cognitive Screening None Anesthesia Plan: ASA 4 general, with a(n) intravenous induction 62 yo male undergoing ascending aorta repair and AVR. Pmhx: JOSEPH, HTN, HLD, , nonobstructive CAD, ascending aortic aneurysm, mild pHTN (PASP low 40's) Relevant home meds: albuterol, statin, lasix, losartan, metoprolol anes hx: none on record TTE (August 2022): LVEF 44%. LV severely dilated. Many WMA. Normal RV size. RVSP 48 mm Hg. Severe , moderate AR, challenging windows. Aortic root 4.6cm. ascending aorta 4.4 cm. Cardiac catheterization (August 2022): Right Heart Pressures Resting: Syst Diast EDP a v m RA 11 8 7 RV 44 10 PA 42 20 24 PCW 29 34 24 Dominance: Right Left Main The left main [...] was hazy. The TOÑITO Cont was small. Lab Results Component Value Date HGB 16.1 09/09/2022 PLATELET 192 09/09/2022 INR 1.1 09/03/2022 NA 141 09/09/2022 K 4.5 09/09/2022 CREATININE 0.95 09/09/2022 09/09/22 1318 ABORH A Pos Allergies: No Known Allergies NPO Status: Appropriate Anesthetic Plan: GA ETT CVC 9 fr introducer PAC JETHRO Arterial line marion barba md Pager [phone] Region - Intrathoracic Cardiac Informed Consent: Anesthetic plan and risks discussed with patient. Use of blood products discussed with patient who. Plan discussed with resident and attending. Anesthesia Screening documented in this encounter Plan of Treatment Not on file documented as of this encounter Visit Diagnoses Not on filedocumented in this encounter Administered Medications Inactive Administered Medications - up to 3 most recent administrations Medication Order MAR Action Action Date Dose Rate Site calcium chloride 10% (100 mg/mL) injection Intravenous, PRN, Starting on Chelo 09/18/22 at 1658, Until Chelo 09/18/22 at 1812, Anesthesia Intra-op, Routine Given 09/18/2022 5:39 PM EDT 500 mg Given 09/18/2022 5:24 PM EDT 500 mg Given 09/18/2022 4:58 PM EDT 500 mg cefTRIAXone (Rocephin) injection Intravenous, PRN, Starting on Chelo 09/18/22 at 1231, Until Chelo 09/18/22 at 1812, Anesthesia Intra-op, Routine Given 09/18/2022 12:31 PM EDT 2 g desmopressin (Ddavp) 30.08 mcg in sodium chloride 0.9% 57.52 mL 30.08 mcg (rounded from 30.06 mcg = 0.3 mcg/kg ? 100.2 kg), Intravenous, ONCE, 1 dose, On Chelo 09/18/22 at 1700, Administer over 30 Minutes New Bag 09/18/2022 4:52 PM EDT 30.08 mcg EPINEPHrine (Adrenalin) (8 mcg/mL) in dextrose 5% 250 mL infusion Intravenous, CONTINUOUS PRN, Starting on Chelo 09/18/22 at 1628, Until Chelo 09/18/22 at 1812, Anesthesia Intra-op Rate/Dose Change 09/18/2022 4:38 PM EDT 1 mcg/min 7.5 mL/hr Rate/Dose Change 09/18/2022 4:35 PM EDT 2 mcg/min 15 mL/h r Rate/Dose Change 09/18/2022 4:27 PM EDT 4 mcg/min 30 mL/h r fentaNYL (pf) (50 mcg/mL) multi-dose injection Intravenous, PRN, Starting on Chelo 09/18/22 at 1303, Until Chelo 09/18/22 at 1812, Anesthesia Intra-op, Routine Given 09/18/2022 4:50 PM EDT 250 mcg Given 09/18/2022 1:11 PM EDT 250 mcg Given 09/18/2022 1:03 PM EDT 250 mcg heparin (porcine) (1,000 units/mL) injection Intravenous, PRN, Starting on Chelo 09/18/22 at 1318, Until Chelo 09/18/22 at 1812, Anesthesia Intra-op, Routine Given 09/18/2022 1:18 PM EDT 35,000 Units lactated ringers infusion Intravenous, CONTINUOUS PRN, Starting on Chelo 09/18/22 at 1207, Until Chelo 09/18/22 at 1812, Anesthesia Intra-op New Bag 09/18/2022 12:07 PM EDT midazolam (pf) (Versed) (1 mg/mL) multi-dose injection Intravenous, PRN, Starting on Chelo 09/18/22 at 1209, Until Chelo 09/18/22 at 1812, Anesthesia Intra-op, Routine Given 09/18/2022 3:12 PM EDT 2 mg Given 09/18/2022 1:35 PM EDT 2 mg Given 09/18/2022 12:09 PM EDT 2 mg niCARdipine (Cardene) (0.5 mg/mL) infusion (Anesthesia) Intravenous, CONTINUOUS PRN, Starting on Chelo 09/18/22 at 1315, Until Chelo 09/18/22 at 1812, Anesthesia Intra-op Rate/Dose Change 09/18/2022 1:21 PM EDT 2.5 mg/hr 5 mL/hr New Bag 09/18/2022 1:15 PM EDT 5 mg/hr 10 mL/hr niCARdipine (Cardene) injection Intravenous, PRN, Starting on Chelo 09/18/22 at 1635, Until Chelo 09/18/22 at 1812, Anesthesia Intra-op, Routine Given 09/18/2022 4:38 PM EDT 0.2 mg Given 09/18/2022 4:35 PM EDT 0.2 mg nitroGLYcerin (200 mcg/mL) in dextrose 5% 250 mL infusion Intravenous, CONTINUOUS PRN, Starting on Chelo 09/18/22 at 1700, Until Chelo 09/18/22 at 1812, Anesthesia Intra-op, Routine Rate/Dose Change 09/18/2022 5:12 PM EDT 10 mcg/min 3 mL/hr New Bag 09/18/2022 5:00 PM EDT 30 mcg/min 9 mL/hr NORepinephrine (Levophed) (16 mcg/mL) in dextrose 5% 250 mL infusion Intravenous, CONTINUOUS PRN, Starting on Chelo 09/18/22 at 1500, Until Chelo 09/18/22 at 1812, Anesthesia Intra-op, Routine Rate/Dose Change 09/18/2022 5:09 PM EDT 2 mcg/min 7.5 mL/hr Rate/Dose Change 09/18/2022 4:47 PM EDT 3 mcg/min 11.25 m L/hr Restarted 09/18/2022 4:44 PM EDT 1 mcg/min 3.75 mL/hr NORepinephrine (Levophed) injection Intravenous, PRN, Starting on Chelo 09/18/22 at 1659, Until Chelo 09/18/22 at 1812, Anesthesia Intra-op, Routine Given 09/18/2022 4:59 PM EDT 16 mcg propofoL (Diprivan) (10 mg/mL) infusion Intravenous, CONTINUOUS PRN, Starting on Chelo 09/18/22 at 1550, Until Chelo 09/18/22 at 1812, Anesthesia Intra-op, Routine New Bag 09/18/2022 3:50 PM EDT 30 mcg/kg/min 18.036 mL/hr propofoL (Diprivan) 10 mg/mL bolus injection (Anesthesia) Intravenous, PRN, Starting on Chelo 09/18/22 at 1312, Until Chelo 09/18/22 at 1812, Anesthesia Intra-op Given 09/18/2022 1:12 PM EDT 100 mg Given 09/18/2022 1:08 PM EDT 100 mg Given 09/18/2022 12:37 PM EDT 150 mg rocuronium (Zemuron) 10 mg/mL injection Intravenous, PRN, Starting on Chelo 09/18/22 at 1219, Until Chelo 09/18/22 at 1812, Anesthesia Intra-op, Routine Given 09/18/2022 4:59 PM EDT 50 mg Given 09/18/2022 2:35 PM EDT 50 mg Given 09/18/2022 1:35 PM EDT 50 mg sodium chloride 0.9% infusion Intravenous, CONTINUOUS PRN, Starting on Chelo 09/18/22 at 1207, Until Chelo 09/18/22 at 1812, Anesthesia Intra-op New Bag 09/18/2022 12:07 PM EDT sodium chloride 0.9% infusion Intravenous, CONTINUOUS PRN, Starting on Chelo 09/18/22 at 1207, Until Chelo 09/18/22 at 1812, Anesthesia Intra-op New Bag 09/18/2022 12:07 PM EDT tranexamic acid (Cyklokapron) (100 mg/mL) infusion Intravenous, CONTINUOUS PRN, Starting on Chelo 09/18/22 at 1231, Until Chelo 09/18/22 at 1812, Anesthesia Intra-op, Routine New Bag 09/18/2022 12:31 PM EDT 1 mg/kg/hr 1.002 mL/hr tranexamic acid (Cyklokapron) (100 mg/mL) IV bolus Intravenous, Administer over 8 Hours, PRN, Starting on Chelo 09/18/22 at 1231, Until Chelo 09/18/22 at 1812, Anesthesia Intra-op, Routine Given 09/18/2022 12:31 PM EDT 1,000 mg documented in this encounter Care Teams Hand Booked Folder And Stitcher Relationship Specialty Start Date End Date Tono Montero MD PCP - General Family Medicine 09/02/22 documented as of this encounter
--- OUTSIDE RECORDS SUMMARY | 2024-02-25 10:39 | XMS_ITS | Encounter Summary ---
Author Organization [facility] [place] [address] Care Team Providers Care Molder Machine Name Role Phone Tono Montero MD Primary Care Provider [phone] Encounter Details Date Type Department Care Team (Latest Contact Info) Description 09/09/2022 1:30 PM EDT - 09/09/2022 11:59 PM EDT Hospital Encounter XRay at [address] [place] [address] Mono Chavarria MD Aortic valve stenosis, etiology of cardiac valve disease unspecified Discharge Disposition: Home Social History Tobacco Use [...] (E.C.) Take 81 mg by mouth daily. chlorhexidine (HIBICLENS) 4 % Liquid Apply topically daily as needed. Shower from head to toe with Chlorhexidine the night before surgery . 120 mL 09/09/2022 09/27/2022 atorvastatin (Lipitor) 80 mg tablet Take 1 [...] needed for Wheezing. Use with spacer 03/04/2023 diclofenac (CATAFLAM) 50 mg tablet 50MG = 1 Tablet(s), PO, Three times daily 07/17/2006 09/27/2022 documented as of this encounter Plan of Treatment Not on file documented as of this encounter Procedures Procedure Name Priority Date/Time Associated Diagnosis Comments XR CHEST PA AND LATERAL Routine 09/09/2022 1:53 PM EDT Aortic valve stenosis, etiology of cardiac valve disease unspecified documented in this encounter Results * XR Chest PA & Lateral (Generic) (09/09/2022 1:53 PM EDT) Anatomical Region Laterality Modality Chest N/A Digital Radiogra phy Impressions 09/09/2022 7:36 PM EDT Mild to moderate cardiomegaly and pulmonary vascular congestion. No overt edema and no airspace consolidation. Thank you for letting us participate in the care of this patient. ??If you are a health care provider and have any questions regarding this report, please contact the number below. ??For patients who have questions please contact the health director of career services that requested your imaging first. ? Electronically signed by: Xuan Diamond MD, [facility] ([phone]), at 09/09/2022 7:36 PM Narrative 09/09/2022 7:36 PM EDT EXAMINATION: XR CHEST PA AND LATERAL (GENERIC) CLINICAL HISTORY: pre op TECHNIQUE: PA and lateral views of the chest COMPARISON: None FINDINGS: Mild to moderate cardiomegaly. Mild pulmonary vascular congestion without overt edema. No pleural effusion. Mild degenerative changes of the spine. Procedure Note Xuan Ashby MD - 09/09/2022 EXAMINATION: XR CHEST PA AND LATERAL (GENERIC) CLINICAL HISTORY: pre op TECHNIQUE: PA and lateral views of the chest COMPARISON: None FINDINGS: Mild to moderate cardiomegaly. Mild pulmonary vascular congestion withoutovert edema. No pleural effusion. Mild degenerative changes of the spine. IMPRESSION Mild to moderate cardiomegaly and pulmonary vascular congestion. No overt edema and no airspace consolidation. Thank you for letting us participate in the care of this patient. If youare a health care provider and have any questions regarding this report,please contact the number below. For patients who have questions please contactthe health director of career services that requested your imaging first. Electronically signed by: Xuan Diamond MD, [facility] ([phone]), at 09/09/2022 7:36 PM Mono Chavarria MD IMG DX ORDERABLES documented in this encounter Visit Diagnoses Diagnosis Aortic valve stenosis, etiology of cardiac valve disease unspecified documented in this encounter Care Teams Molder Machine Relationship Specialty Start Date End Date Tono Montero MD PCP - General Family Medicine 09/02/22 documented as of this encounter
--- OUTSIDE RECORDS SUMMARY | 2024-02-25 10:39 | XMS_ITS | Encounter Summary ---
[place] [address] Care Team Providers Care Staff Certified Nurse Midwife Name Role Phone Tono Montero MD Primary Care Provider [phone] Encounter Details Date Type Department Care Team (Late st Contact Info) Description 09/02/2022 External [place] [id number] Social History Tobacco Use Types Packs/Day Years [...] Procedure Name Priority Date/Time Associated Diagnosis Comments ECG SCAN Routine 09/02/2022 ECG SCAN Routine 09/02/2022 documented in this encounter Results * Scan Doc: ECG (09/02/2022) Historical Provider MEDIA MGR SCAN EX T ORDR/RSLT * Scan Doc: ECG (09/02/2022) Historical Provider MD TA MGR SCAN EX T ORDR/RSLT documented in this encounter Visit Diagnoses Not on filedocumented in this encounter Care Teams Staff Certified Nurse Midwife Relationship Specialty Start Date End Date Tono Montero MD PCP - General Family Medicine 09/02/22 documented as of this encounter
--- OUTSIDE RECORDS SUMMARY | 2024-02-25 10:39 | XMS_ITS | Encounter Summary ---
[place] [address] Care Team Providers Care Dental Assistant Medical Assistant Name Role Phone Ulises Montero MD Primary Care Provider [phone] Reason for Visit * Auth/Cert (Routine) Specialty [...] FOR CABG (WRVU 0.31) Mono Chavarria MD [facility] Referral ID Status Reason Start Date Expiration Date Visits Re quested Visits Authorized [id number] 1 1 Encounter Details Date Type Department Care Team (Late st Contact Info) Description 09/18/2022 12:45 PM EDT - 09/18/2022 6:30 PM EDT [place] [id number] Mono Chavarria MD @ASCEND AORTA GRAFT, W\CPB, W\WO VALVE SUSPEN; W\ AORTIC ROOT REPLCMNT (WRVU 58.79) Social History Tobacco Use Types Packs/Day Years [...] Sign Reading Time Taken Comments Blood Pressure 143/45 09/18/2022 10:30 AM EDT Right arm 135/59 Pulse 80 09/18/2022 6:30 PM EDT Temperature 33.4 ??C (92.1 ??F) 09/18/2022 6 :00 PM EDT Respiratory Rate 16 09/18/2022 6:30 PM EDT Oxygen Saturation 100% 09/18/2022 6:3 0 PM EDT Inhaled Oxygen Concentration - - Weight 100.2 kg (221 lb) 09/18/2022 10: 30 AM EDT Height 170.2 cm (5' 7) 09/18/2022 10:3 0 AM EDT Body Mass Index 33.02 09/18/2022 10:30 AM EDT documented in this encounter Discharge Summaries * Trino Calix PA - 09/27/2022 9:54 AM EDT Inpatient - Discharge Summary Patient Name: Addis Bridges Patient Age: 62 y.o. Birthdate: 1960 Language: Citizen Of [place] Race: White Ethnicity: Not nor Admit Date: 09/18/2022 Discharge Date: 09/27/22 Attending Physician: Mono Chavarria MD Follow-up Recommendations for Providers: ??? Please continue routine management of cardiovascular risk factors including blood pressure, lipids, glucose, etc. ??? Please note any changes to medications. ??? Patient to follow up with PCP, Ulises Montero MD, in 1-2 weeks. ??? Patient to follow up with Cardiac Surgeon, Dr. Mono Chavarria, in 1 month with a chest x-ray, EKG, and Echo. ??? Referral placed to Anticoagulation Clinic under the management of cardiology Dr Aquino (Please see below for details) Inpatient Provider Contact Information: [facility] Section of Cardiac Surgery [facility] [address] FAX [phone] Discharge Diagnoses (Hospital Problems) Primary Diagnoses: , [...] ROOT REPLCMNT (WRVU 58.79) performed by Mono Chavarria MD at [facility] MAIN OR ??? PRO CABG, VEIN, SINGLE N/A 09/18/2022 @CABG, VEIN ONLY; SINGLE CORONARY VENOUS GRAFT (WRVU 34.98) performed by Mono Chavarria MD at [facility] MAIN OR ??? PRO ENDOSCOPY W/VIDEO-ASST VEIN HARVEST, CABG Right 09/18/2022 ENDOSCOPIC HARVEST VEIN(S) FOR CABG (WRVU 0.31) performed by Mono Chavarria MD at [facility] MAIN OR Prior To Admission Medications Medications [...] Presentation: As per consult note by MONO CHAVARRIA MD on 09/03/2022, He is a 62 [...] statin. ?? 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 No h/o liver disease. Creatinine is 0.81. Being diuresed on IV lasix. Not on plavix. No stroke history. Not diabetic. Major Procedures/Operations: 09/18/2022: Aortic Root Replacement with bioprosthetic AVR, CABGx1 Hospital Course: , Aortic Root Aneurysm, CAD s/p AVR, Aortic Root Replacement, CABGx1 Addis Bridges was admitted to [facility] on 09/18/2022 via the Same Day Program. He was brought to the operating room where Dr. Mono Chavarria performed an aortic root replacement and CABGx1. [...] without incident. He voided normally after his Phillips was removed. Postop afib He developed atrial [...] for ongoing outpatient anticoagulation management: ??? Provider/Team/Clinic: [facility] coumadin clinic ??? 7. If you have [...] not take or discontinue any prescription or llbu-pav-vedwlpv medications without asking your doctor or pharmacist [...] your chest incision. Your surgeon, Dr. Mono Chavarria and/or the Cardiac Surgery Physician Pipe Caulker Team may be reached at . Antibiotic [...] Please refer to the card with the [place] [employer] Guidelines for more information. You [...] Dr. Mono Strong. You may use a [place] Track or treadmill but avoid any pulling [...] friends, go to a movie, go to confucianism, etc. Heavy activities: No hunting, skiing, jogging, [...] should resume a low fat, low cholesterol, [place] [employer] Diet/Diabetic diet. Driving: No driving [...] while being managed by your PCP and/or Voucher Examiner. For future medication refills, please refer to your PCP and/or Voucher Examiner after your discharge from our service. Thank you REMOVE CHEST TUBE SUTURES ON OR AFTER 09/28/22 Home oxygen therapy: N/A Follow up appointments: ??? You should follow up with your PCP, Ulises Montero MD, in 1-2 weeks. ??? You have an appointment with your Cardiac Surgeon, Dr. Mono Chavarria, in 4 wks with a chest x-ray, EKG, and Echo before your appointment. Cardiac Rehabilitation: Addis Bridges was seen today regarding participation in the outpatient Phase [address] [facility]. The patient agrees to a referral to this program. The referral will be sent at discharge and the patient should be contacted by the Program within 1- 2 weeks from discharge. Future Appointments and Orders Future Appointments and Orders Future Appointments Provider Department Dept Phone 10/10/2022 2:00 PM Reynaldo Stack MD; Prabhjot Schuster MD Cardiology at [facility] Arrive at: Human Resource Advisor Area [phone] Future Orders Complete By Expires Referral for Anticoagulation Monitoring [[id number] Custom] As directed Process Instructions: If no progress note charted, please enter Clinical details in comments. Scheduling Instructions: Questions: Risk Factors: My question or request is: Postop atrial fibrillation. Responsible provider Cardiology Dr. Prabhjot Schuster Referral to Cardiac Rehab [[id number] Custom] As directed Process Instructions: If no progress note charted, please enter Clinical details in comments. Scheduling Instructions: Questions: My question or request is: s/p CABG, AVR- cardiac rehab at [facility] Referral to Home Health [REF34 Custom] As directed Process Instructions: If no progress note charted, please enter Clinical details in comments. Scheduling Instructions: Comments: Please evaluate Addis Bridges for admission to Home Health. [address] [place] [phone] (home) Date of : 1960 DOCUMENTATION FOR VNA SERVICES (INCLUDING THOSE PATIENTS WITH MEDICARE COVERAGE REQUIRING HOME VNA SERVICES AND/OR HOSPICE SERVICES) This is preliminary information related to the patient's needs and confirmation of Face to Face Encounter. The denoted information will require completion and an electronic signature by the physicianupon finalization of these orders. PATIENT'S LOCATION: Addis Bridges [address] [place] [phone] (home) Cell: Telephone Information: Slip Laster's Name: self In discussion with the attending physician, it is certified that this patient is under their care and that they, or a Nurse Practitioner, Clinical Nurse specialist or Physician Pipe Caulker who is working directly with them, had [...] Please draw INR and send result to: [facility] anticoagulation clinic Chest Tube Suture Removal Date 09/29/2022 PT ORDERS: Continue rehab for endurance, gait stability and strength with mobility and transfers. Home safety evaluation. Home exercise program if appropriate. Start of Care Date: 24 - 48 hours after discharge SPECIAL INSTRUCTIONS: For any follow up questions, needs, or issues please call the Cardiology Office at [phone] HOME HEALTH CARE AGENCY: [facility]. [address] [place] [phone] Start of care: 24-48 hours post discharge [...] VNA/home care: As above. Signed: LINDA Mariee [facility] Section of Cardiac Surgery [facility] [address] FAX [phone] Date: 09/27/2022 CC: MD Kylah De La O John, MD [address] [facility] [place] [address] documented in this encounter Discharge Instructions * [...] your chest incision. Your surgeon, Dr. Mono Chavarria and/or the Cardiac Surgery Physician Pipe Caulker Team may be reached at . Antibiotic [...] Please refer to the card with the [place] [employer] Guidelines for more information. You [...] Dr. Mono Strong. You may use a [place] Track or treadmill but avoid any pulling [...] friends, go to a movie, go to confucianism, etc. Heavy activities: No hunting, skiing, jogging, [...] should resume a low fat, low cholesterol, [place] [employer] Diet/Diabetic diet. Driving: No driving [...] while being managed by your PCP and/or Voucher Examiner. For future medication refills, please refer to your PCP and/or Voucher Examiner after your discharge from our service. Thank you REMOVE CHEST TUBE SUTURES ON OR AFTER 09/28/22 Home oxygen therapy: N/A Follow up appointments: You should follow up with your PCP, Ulises Montero MD, in 1-2 weeks. You have an appointment with your Cardiac Surgeon, Dr. Mono Chavarria, in 4 wks with a chest x-ray, EKG, and Echo before your appointment. Cardiac Rehabilitation: Addis Bridges was seen today regarding participation in the outpatient Phase [address] [facility]. The patient agrees to a referral to this program. The referral will be sent at discharge and the patient should be contacted by the Program within 1- 2 weeks from discharge. * Attachments The following attachments cannot be sent through Care Everywhere. * Aortic Valve Replacement Surgery: Post-op (Citizen Of [place]) documented in this encounter Medications at Time [...] for 1 month Coumadin 5 daily through , INR on Thursday K replacement Torsemide 20 [...] 0600 and on the weekends please page [phone]. * Dolores Blue - 09/26/2022 1:35 PM EDT Nutrition Services Note - Low Nutrition Acuity Addis Bridgse is a 62 y.o. male Reason for intervention: hospital day 9 Nutrition Plan: Continue diet order Monitor good PO Lasix & aldactone Monitor weight Patient scheduled for a hospital day 9 nutrition evaluation. Metal Mold Dresser met with pt at bedside. Per documentation patient has excellent PO intakes recorded at 100% over the past 3 days. According to dining services software they have ordered an average ~1398kcals/day within the same duration, when not NPO. Pt shares a good appetite and eats 100% of food received if he likes it. 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 Metal Mold Dresser briefly discussed the [facility] diet with pt and provided creative services writer Guidelines for a Heart Healthy Lifestyle [...] Orders Diet Daily Healthy Menu Choices/Cardiac diet ([facility]-Diet) Frequency: Effective Now Number of Occurrences: Until [...] surgeon on rounds this morning. CHELSEA YUNG, TRY ON BASTER 09/26/2022 Between the hours of 1800 - 0600 and on the weekends please page [phone]. * Isaura Ruby PA - 09/25/2022 9:42 [...] 0600 and on the weekends please page [phone]. * Shante Rodriguez, PT - 09/25/2022 9:36 AM EDT Physical Therapy evaluation 1 Patient profile: Addis E Harlowis a 62 y.o. y/o male with history of CAD, JOSEPH, Current smoker, HTN, , HF admitted on 09/18/[address] Mono Chavarria MD for Aortic root replacement, CABGx1 on [...] ROOT REPLCMNT (WRVU 58.79) performed by Mono Chavarria MD at [facility] MAIN OR ??? PRO CABG, VEIN, SINGLE N/A 09/18/2022 @CABG, VEIN ONLY; SINGLE CORONARY VENOUS GRAFT (WRVU 34.98) performed by Mono Chavarria MD at [facility] MAIN OR ??? PRO ENDOSCOPY W/VIDEO-ASST VEIN HARVEST, CABG Right 09/18/2022 ENDOSCOPIC HARVEST VEIN(S) FOR CABG (WRVU 0.31) performed by Mono Chavarria MD at [facility] MAIN OR Social History: Pt lives with his in a 2 level home with 3 stairs to enter. 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 Precautions/Special Considerations: STERNAL PRECAUTIONS (No pushing, [...] in this evaluation. SHANTE RODRIGUEZ, PT Pager: [phone] Physical Therapy Inpatient Rehabilitation Department Time IN / OUT: Total time: 20 minutes ( ) * Chelsea Yung, TRY ON BASTER - 09/24/2022 10:20 AM EDT Cardiac Surgery [...] questions please contact the health director of patient care that requested your imaging first. Electronically signed by: Swathi Carias MD, [facility] ([phone]), at 09/22/2022 6:53 PM XR Chest PA [...] questions please contact the health director of patient care that requested your imaging first. Electronically signed by: Marivel Marx MD, [facility] ([phone]), at 09/21/2022 6:02 AM XR Chest One [...] questions please contact the health director of patient care that requested your imaging first. Electronically signed by: Swathi Carias MD, [facility] ([phone]), at 09/18/2022 7:05 PM Assessment/Plan: 62 y.o. [...] 0600 and on the weekends please page [phone]. * Sandra Albrecht RN - 09/24/2022 6:36 [...] tobacco use 24h Events: Transferred back to [facility] for SOB, Malaise, Afib. ECHO with [...] questions please contact the health director of patient care that requested your imaging first. Electronically signed by: Swathi Carias MD, [facility] ([phone]), at 09/22/2022 6:53 PM XR Chest PA [...] questions please contact the health director of patient care that requested your imaging first. Electronically signed by: Marivel Marx MD, [facility] ([phone]), at 09/21/2022 6:02 AM XR Chest One [...] questions please contact the health director of patient care that requested your imaging first. Assessment/Plan: 62 y.o. male 5 Days Post-Op [...] HOMERO Dispo: CVCC, full code; [facility] Discussed with attending surgeon on rounds this morning. LINDA HAWKINS 09/23/2022 Between the hours of 1800 - 0600 and on the weekends please page [phone]. * Alex Rosen RN - 09/23/2022 6:16 [...] a later date. Shante Rodriguez, PT Pager [phone] * Chelsea Yung, TRY ON BASTER - 09/22/2022 9:24 AM EDT Cardiac Surgery [...] questions please contact the health director of patient care that requested your imaging first. Electronically signed by: Marivel Marx MD, [facility] ([phone]), at 09/21/2022 6:02 AM XR Chest One [...] questions please contact the health director of patient care that requested your imaging first. Electronically signed by: Swathi Carias MD, [facility] ([phone]), at 09/18/2022 7:05 PM Assessment/Plan: 62 y.o. [...] attending surgeon on rounds this morning. CHELSEA YUNG APRN 09/22/2022 Between the hours of 1800 - 0600 and on the weekends please page [phone]. * Jayson Jeronimo MD - 09/21/2022 10:30 AM EDT Cardiac Surgery Progress Note Addis Bridges is a 62 y.o. male who is 3 Days Post-Op Aortic root replacement, CABGx1. PMH of HFrEF, CAD, JOSEPH on CPAP, HTN, HLD, , previous hernia repairs x5, current tobacco use 24h Events: CTs removed Phillips removed Tolerated clears Went into Afib this [...] questions please contact the health director of patient care that requested your imaging first. Electronically signed by: Marivel Marx MD, [facility] ([phone]), at 09/21/2022 6:02 AM XR Chest One [...] questions please contact the health director of patient care that requested your imaging first. Electronically signed by: Swathi Carias MD, [facility] ([phone]), at 09/18/2022 7:05 PM Assessment/Plan: 62 y.o. male 3 Days Post-Op [...] 0600 and on the weekends please page [phone]. * Trino Calix PA - 09/20/2022 10:19 [...] no edema Incisions: CDI intact Tubes/Lines/Drains: pw, phillips, med ct's Assessment/Plan: 62 y.o. male 2 Days Post-Op Aortic root replacement, CABGx1. CTs out Phillips out Start low dose metop Await ROBF Neuro: tylenol, oxy CV: metoprolol 12.5 bid, atorvastatin 80', losartan 25 Pulm: nc wean as able, IS c/db GI: NPO until flatus, protonix, rbo's : phillips out Renal: k prn, lasix 20 iv bid Heme: asa ID: periop course complete Endo: HOMERO Dispo: Floor, full code Discussed with attending surgeon on rounds this morning. LINDA Mariee 09/20/2022 Between the hours of 1800 - 0600 and on the weekends please page [phone]. * Remy Colon MD - 09/19/2022 10:58 [...] edema Incisions: CDI intact Tubes/Lines/Drains: PIV, RIJ, hriam, pw, phillips, med ct's Assessment/Plan: 62 y.o. male 1 Day Post-Op Aortic root replacement, CABGx1. Pathway Dc fem line oob Likely dc ct's later Start low dose metop Lasix Low dose arb for HTN, Hydralazine prn Likely tx later Neuro: tylenol, oxy CV: metoprolol 12.5 bid, atorvastatin 80', losartan 25 Pulm: nc wean as able, IS c/db GI: protonix, rbo's, adat : phillips Renal: k prn, lasix 20 iv bid Heme: asa ID: periop course complete Endo: HOMERO Dispo: cvcc, full code, tx to floor later Discussed with attending surgeon on rounds this morning. CHELSEA YUNG, TRY ON BASTER 09/19/2022 Between the hours of 1800 - 0600 and on the weekends please page [phone]. * Greer Lew RCP - 09/18/2022 6:00 [...] discharge to home with family/friend support and [facility], start of care should be09/28 and next INR on 09/29, team is aware. Needs for Transition of Care: Plan for discharge is: Home w/ Services Outpatient Agency/Support Group Needs: Homecare agency Home Health Services: Registered Nurse, Physical Therapy, Wound care, Anticoagulation monitoring Agency Referrals & Follow-up Care: Contact information for follow-up Home Health & Hospice, [place] [address] [place] [address] Cardiac Rehab, [facility] [address] [place] [address] [address] [place] [address] Transportation: family or friend will provide-via private vehicle. Functional status prior to admission: Independent, Patient Drives Self Home Environment: Others in the home: spouse (Korina). Current Living Arrangements: home/apartment/condo. Accessibility Concerns:8 [address] double level home with bedroom/bathroom on second level.. Current Functional Ability: Assistive Person DME used at home: other (see comments), oxygen (CPAP through [employer]; Scale) DME Needed at Discharge: none Patient is insured through: Primary Insurance: MVP Payor: MVP / Plan: MVP [place] / Product Type: *No Product type* / Secondary Insurance: N/A Prescription Coverage: Yes This plan was formulated with input from patient, family (please identify family/friend involved ifapplicable) and team. All are in agreement with plan. Angélica Wasserman MSN, RN Pager #[phone] * Plan of Care - Aniceto Saldana [...] related to: CAD; CABG. Per note by Jose Yung APRN on 09/22/2022: Assessment/Plan: 62 y.o. [...] home: other (see comments), oxygen (CPAP through [employer]; Scale) DME Needed at Discharge: No [...] care, Anticoagulation monitoring Agency Referrals: Not Applicable [facility] following patient. Transportation: family or friend will provide Barriers to discharge: Discharge planning Psych: Adjustment to diagnosis/illness Supports: Caregiver support Plan going forward: Care Management will continue to follow and assist with discharge planning and coordination of care as indicated. Anticipated Date of Discharge: 09/24/2022 * Consult Note - Nicole Bey RN - 09/22/2022 9:47 AM EDT [facility] CARDIAC REHABILITATION Addis Bridges was seen today regarding participation in the outpatient Phase [address] [facility]. The patient agrees to a referral [...] Covid Vaccination Status: 1st & 2nd dose (Screamin Daily Deals) Last COVID test: N/A Past medical History: [...] surrogate would be surrogate decision maker per [place] decision making law. (Only good for 180 days) Any patient receiving care in [place] must abide by [place] law. The hierarchy for surrogate decision making [...] (i) The agent with financial power of divorce attorney or a conservator appointed in accordance [...] DME: other (see comments), oxygen (CPAP through [employer]; Scale) Home Address confirmed as: [address] [place] [phone] Social & Family Supports: All names listed below confirmed with patient as current and correct Extended Emergency Contact Information Primary Emergency Contact: Korina Decker Address: [address] [place] [phone] [facility] Mobile Relation: Fiancee Secondary Emergency Contact: Raymundo [...] replacement on 09/17/2022. Health/Prescription Coverage: Primary Insurance: MVP Payor: MVP / Plan: P [place] / Product Type: *No Product type* / Secondary Insurance: N/A ONLY if patient has Medicare A&B - Does this patient have secondary insurance?: (N/A) ; Prescription Coverage: Yes Preferred Pharmacy: [id number] AT [address] [phone] [place] [address] [address] [facility] [address] Status: Patient is a : No Primary Care Provider listed: Ulises Montero MD [phone] Patient/Caregiver Goals of Treatment: When medically stable discharge to home. Potential Needs for Transition of Care: outpatient care, home health care Agency Referrals: I have met with the patient to: ?? discuss discharge planning needs. ?? provide the [facility], Office of Care Management letter from the Link Cutter pertaining to rehabreferrals. ?? provide a letter describing our affiliations within the [facility] and educate about their right to choose where referrals are sent. ?? provide a list of Home Health Agencies / Durable Medical Equipment vendors which serve their preferred geographic area. ?? provided patient with [facility] Star Quality Rating handout. They have requested referrals to: [facility] [address] [place] [phone] Note routed to a Minesweeping Officer who will communicate referrals to facilities [...] care planning. * OR Attestation - Mono Chavarria MD - 09/18/2022 9:34 PM EDT Attestation: Case Date: 09/18/2022 I performed this procedure without the involvement of a resident. Mono Chavarria MD 09/19/2022 * Brief Op Note - Mono Chavarria MD - 09/18/2022 9:33 PM EDT Brief Operative Note Patient Name: Addis Bridges : [id number] MR#: [id number] Case Date: 09/18/2022 Surgeon: Surgeon(s) and Role: * Mono Chavarria MD - Primary * Minesh Stanley PA - Physician Pipe Caulker * Zach Hernandez PA - Physician Pipe Caulker Preoperative diagnosis: ascending aortic root aneurysm, CAD [...] Used? No * Op Note - Mono Chavarria MD - 09/18/2022 1:08 PM EDT Cardiac surgery operative note Preop diagnosis severely stenotic bicuspid aortic valve with associated root aneurysm single-vesselcoronary disease Postop diagnosis same Procedure: 1. Aortic root replacement with 29 mm connect composite tissue root 2. CABG x1 reverse saphenous vein to the mid proximal RCA 3. Endoscopic vein harvest Surgeon Deon MUNOZ Pipe Caulker kiesha Rose PA-C [employer] Cell Saver Findings [...] used to bumper the sternum the sternal supervisor boat outfitting was used to open the chest. The right leg was used to dissect out the greater saphenous vein using endoscopic technique with a vertical incision made on the medial aspect of the knee anterior and posterior dissection was carried out using the [employer] system all side branches were cauterized it [...] type, unspecified whether angina present, unspecified whether [place] or transplanted heart One Time for 1 [...] 3 12:42 PM EDT Endoscopy W/Video-Asst Vein [place], Cabg ([id number]) Yes 09/18/2022 12:06 PM EDT ascending aortic root aneurysm, CAD Cabg, Vein, Single ([id number]) Yes 09/18/2022 12:06 PM EDT ascending aortic root aneurysm, CAD Ascend Aorta Grft W Root Replacmt ([id number]) Yes 09/18/2022 12:06 PM EDT ascending aortic [...] Prothrombin Time 19.9(H) 9.4 - 12.5 sec [facility] International Normalization Ratio 1.7 [facility] Comment: An INR <2.0 indicates adequate [...] Agency Comment Spec In Lab Chelsea Yung TRY ON BASTER HEMATOLOGY ORDERAB LES [facility] [place] [address] * Potassium (09/27/2022 4:44 AM EDT) Potassium 4.3 3.5 - 5.0 mmol/L [facility] Comment: Please note: ??Patients with WBC >100,000 may have falsely elevated Potassium levels. ??For accurate Potassium quantification in these patients send serum separator tube (gold top) for subsequent determinations. ??Contact the Clinical Chemistry Laboratory if there are any questions. Blood 09/27/2022 4:44 AM EDT 09/27/2022 4:57 AM EDT Narrative Resulting Agency Comment Spec In Lab Chelsea Kempfield KENNETH CHEMISTRY ORDERABL ES Performing Organization Address [facility] de Phone Number [facility] [place] [address] * (ABNORMAL) Prothrombin Time (09/26/2022 12:04 AM EDT) Prothrombin Time 15.5(H) 9.4 - 12.5 sec [facility] International Normalization Ratio 1.4 [facility] Comment: An INR <2.0 indicates adequate [...] Agency Comment Spec In Lab Chelsea Kempfield KENNETH HEMATOLOGY ORDERAB LES Performing Organization Address [facility] de Phone Number [facility] [place] [place] [address] * Potassium (09/26/2022 12:04 AM EDT) Potassium 3.9 3.5 - 5.0 mmol/L [facility] Comment: Please note: ??Patients with WBC [...] KENNETH CHEMISTRY ORDERABL ES Performing Organization Address [facility] Co de Phone Number [facility] [place] [address] * Potassium (09/25/2022 5:59 AM EDT) Potassium 3.9 3.5 - 5.0 mmol/L [facility] Comment: Please note: ??Patients with WBC [...] MD CHEMISTRY ORDERABLE S Performing Organization Address [facility] Co de Phone Number [facility] [place] [address] * (ABNORMAL) Potassium (09/25/2022 12:13 AM EDT) Potassium 3.4(L) 3.5 - 5.0 mmol/L [facility] Comment: Please note: ??Patients with WBC [...] KENNETH CHEMISTRY ORDERABL ES Performing Organization Address [facility] Co de Phone Number [facility] [place] [address] * (ABNORMAL) Prothrombin Time (09/25/2022 12:13 AM EDT) Prothrombin Time 15.1(H) 9.4 - 12.5 sec [facility] International Normalization Ratio 1.3 [facility] Comment: An INR <2.0 indicates adequate [...] Resulting Agency Comment Spec In Lab Chelsea Haiku KENNETH HEMATOLOGY ORDERAB LES Performing Organization Address [facility] de Phone Number [facility] [place] [address] * Lavender Tube HOLD (09/24/2022 4:27 AM EDT) Lavender Hold Sample in lab. [facility] Blood Venous Draw / Unknown 09/24/2022 4:27 AM EDT 09/24/2022 4:40 AM EDT Chelsea Kempfield KENNETH HEMATOLOGY ORDERAB LES Performing Organization Address [facility] de Phone Number [facility] [place] [address] * Potassium (09/24/2022 4:27 AM EDT) Potassium 3.6 3.5 - 5.0 mmol/L [facility] Comment: Please note: ??Patients with WBC >100,000 may have falsely elevated Potassium levels. ??For accurate Potassium quantification in these patients send serum separator tube (gold top) for subsequent determinations. ??Contact the Clinical Chemistry Laboratory if there are any questions. Blood 09/24/2022 4:27 AM EDT 09/24/2022 4:36 AM EDT Narrative Resulting Agency Comment Spec In Lab Chelsea Kempfield KENNETH CHEMISTRY ORDERABL ES Performing Organization Address [facility]/ZIP Co de Phone Number [facility] [place] [address] * EKG 12 Lead (09/23/2022 3:49 AM EDT) Ventricular rate 70 BPM MUSE SYSTEM QRS Duration 142 ms MUSE SYSTEM Q-T Interval 450 ms MUSE SYSTEM QTC Calculated (Bezet) 486 ms MUSE SYSTEM Calculated R Graham 59 degrees MUSE SYSTEM Calculated T Graham 123 degrees MUSE SYSTEM INTERPRETATION Accelerated Junctional rhythm with retrograde conduction with occasional fusion beats. Left bundle branch block Abnormal ECG When compared with ECG of 22-SEP-2022 13:23, Accelerated Junctional rhythm has replaced Atrial fibrillation Confirmed by Prince Guillory ([id number]) on 09/23/2022 8:38:11 AM MUSE SYSTEM 09/23/2022 3:49 AM EDT 09/23/2022 8:38 AM EDT Mono Chavarria MD ECG ORDERABLES Performing Organization Address [facility] Co de Phone Number MUSE SYSTEM * (ABNORMAL) Magnesium (09/23/2022 3:38 AM EDT) Magnesium 1.09(H) 0.69 - 1.07 mmol/L [facility] Blood Venous Draw / Unknown 09/23/2022 3:38 AM EDT 09/23/2022 4:10 AM EDT Narrative Resulting Agency Comment Spec In Lab Jayson Jeronimo MD CHEMISTRY ORDERABLES Performing Organization Address [facility] Co de Phone Number [facility] [place] [address] * Potassium (09/23/2022 3:38 AM EDT) Potassium 3.9 3.5 - 5.0 mmol/L [facility] Comment: Please note: ??Patients with WBC >100,000 may have falsely elevated Potassium levels. ??For accurate Potassium quantification in these patients send serum separator tube (gold top) for subsequent determinations. ??Contact the Clinical Chemistry Laboratory if there are any questions. Blood 09/23/2022 3:38 AM EDT 09/23/2022 4:05 AM EDT Narrative Resulting Agency Comment Spec In Lab Chelsea Yung TRY ON BASTER CHEMISTRY ORDERABL ES [facility] One [facility] [place] [address] * XR Chest One View (09/22/2022 6:49 [...] questions please contact the health director of patient care that requested your imaging first. ? Electronically signed by: Swathi Carias MD, [facility] ([phone]), at 09/22/2022 6:53 PM Narrative 09/22/2022 6:53 [...] have questions please contactthe health director of patient care that requested your imaging first. Electronically signed by: Swathi Carias MD, [facility]([phone]), at 09/22/2022 6:53 PM Mono Chavarria MD IMG DX ORDERABLES * EKG 12 Lead (09/22/2022 1:23 PM EDT) Ventricular rate 77 BPM MUSE SYSTEM QRS Duration 146 ms MUSE SYSTEM Q-T Interval 436 ms MUSE SYSTEM QTC Calculated (Bezet) 493 ms MUSE SYSTEM Calculated R Graham 21 degrees MUSE SYSTEM Calculated T Graham 112 degrees MUSE SYSTEM INTERPRETATION Atrial fibrillation with a competing junctional pacemaker with premature ventricular or aberrantly conducted complexes Non-specific intra-ventricul ar conduction block Abnormal ECG When compared with ECG of 19-SEP-2022 07:20, Atrial fibrillation has replaced Junctional rhythm Confirmed by MD Monroy Danette ([id number]) on 09/22/2022 4:00:58 PM MUSE SYSTEM 09/22/2022 1:23 PM EDT 09/22/2022 4:00 PM EDT Mono Chavarria MD ECG ORDERABLES MUSE SYSTEM * ECHO LMTD W/O CONTRAST W LMTD SPEC DOPP COLOR DOPP (09/22/2022 10:34 AM EDT) Pathologist [facility] EF 35 HEARTLAB SYSTEM Anatomical Region Laterality Modality Cardiac Other 09/22/2022 9:44 AM EDT Narrative 09/22/2022 10:50 AM EDT ? Echocardiogram Report Name: ADDIS BRIDGES ?Study Date: 09/22/2022 09:44 AMBP: 141/101 mmHg ? Patient Location: [address] : 1960 ? Height: 170 cm ? Account: [id number] Age: 62 yrs ? Weight: 103 kg Gender: Male ?BSA: 2.1 m2 Ordering Physician: CHELSEA YUNG Referring Physician: ULISES MONTERO Performed By: Shante Lockett RDCS Exam Location: [facility]. Interpretation Summary The patient is 4 days [...] 44% with regional WMA. Procedure Limited - 60643. Color Doppler - 27595. limited spectral 83486. Left Ventricle Left ventricle is moderately dilated. [...] Aneurysmal ?15-16 ?? diffuse Procedure Note Milton Staton MD - 09/22/2022 Echocardiogram Report Name: ADDIS BRIDGES Study Date: 309:44 AMBP: 141/101 mmHg Patient Location: [id number] : 1960 Height: 170 cm Account: [id number] Age: 62 yrs Weight: 103 kg Gender: Male BSA: 2.1 m2 Ordering Physician: CHELSEA YUNG Referring Physician: ULISES MONTERO Performed By: Shante Lockett DUKE Exam Location: [facility]. Interpretation Summary The patient is 4 days [...] 44% with regional WMA. Procedure Limited - [id number]. Color Doppler - 98968. limited spectral 47346. Left Ventricle Left ventricle is moderately dilated. [...] EDT) Magnesium 0.89 0.69 - 1.07 mmol/L [facility] Blood Venous Draw / Unknown 09/22/2022 5:20 AM EDT 09/22/2022 5:26 AM EDT Narrative Resulting Agency Comment Spec In Lab Jayson Jeronimo MD CHEMISTRY ORDERABLES [facility] [place] [address] * Potassium (09/22/2022 5:20 AM EDT) Potassium 4.5 3.5 - 5.0 mmol/L [facility] Comment: Please note: ??Patients with WBC >100,000 may have falsely elevated Potassium levels. ??For accurate Potassium quantification in these patients send serum separator tube (gold top) for subsequent determinations. ??Contact the Clinical Chemistry Laboratory if there are any questions. Blood 09/22/2022 5:20 AM EDT 09/22/2022 5:26 AM EDT Narrative Resulting Agency Comment Spec In Lab Chelsea Yung APRN CHEMISTRY ORDERABL ES Performing Organization Address City/[facility]/ZIP Co de Phone Number [facility] [place] [address] * Magnesium (09/21/2022 12:01 PM EDT) Magnesium 0.80 0.69 - 1.07 mmol/L [facility] Blood 09/21/2022 12:0 1 PM EDT 09/21/2022 12:10 PM EDT Narrative Resulting Agency Comment Spec In Lab Mono Chavarria MD CHEMISTRY ORDERABLE S Performing Organization Address [facility] Co de Phone Number [facility] [place] [address] * XR Chest PA & Lateral (Generic) [...] questions please contact the health director of patient care that requested your imaging first. ? Electronically signed by: Marivel Marx MD, [facility] ([phone]), at 09/21/2022 6:02 AM Narrative 09/21/2022 6:02 [...] have questions please contactthe health director of patient care that requested your imaging first. Electronically signed by: Marivel Marx MD, [facility]([phone]), at 09/21/2022 6:02 AM Chelsea Yung TRY ON BASTER IMG DX ORDERABLES * (ABNORMAL) Differential, Automated (09/21/2022 3:27 AM EDT) Neutrophil % 75.5 % [facility] Neutrophil Absolute 10.61(H) 1.70 - 6.10 x10(3)/mc L [facility] Lymph % 12.6 % [facility] Lymphocytes Abs 1.8 0.9 - 3.2 x10(3)/mc L [facility] Monocyte % 10.2 % [facility] Monocyte Abs 1.4(H) 0.3 - 0.9 x10(3)/[facility] Eos % 1.0 % [facility] Eosinophils Abs 0.1 0.0 - 0.4 x10(3)/[facility] Basophil % 0.3 % [facility] Baso Absolute 0.0 0.0 - 0.1 x10(3)/ L [facility] Immature Gran % 0.40 % [facility] Comment: Immature granulocytes(IG's)percentage and absolute count will include metamyelocytes, myelocytes, and promyelocytes. Blood smears from CBCs yielding IG's will be scanned manually for concordance. If this scan disagrees with the automated IG or if promyelocytes are noted, a manual differential will be performed. Immature Gran Absolute 0.05(H) 0.00 - 0.04 x10(3)/ L [facility] Blood 09/21/2022 3:27 AM EDT 09/21/2022 3:32 AM EDT Narrative Resulting Agency Comment Spec In Lab Chelsea Yung TRY ON BASTER HEMATOLOGY ORDERAB LES [facility] [place] [address] * (ABNORMAL) Hemogram (09/21/2022 3:27 AM EDT) White Blood Cell 14.0(H) 4.0 - 9.5 x10(3)/ L [facility] Red Blood Cell 3.35(L) 4.58 - 5.54 x10(6)/mc L [facility] Hemoglobin 10.3(L) 13.7 - 16.5 g/dL [facility] Hematocrit 31.2(L) 40.5 - 48.5 % [facility] Mean Cell Volume 93.1 82.9 - 93.1 fL [facility] Mean Cell Hemoglobin 30.7 27.5 - 32.1 pg [facility] Mean Cell Hemoglobin Concentration 33.0 32.0 - 35.7 g/dL [facility] Platelet 141(L) 145 - 357 x10(3)/mc L [facility] RDW Standard Deviation 42.5 36.0 - 45.0 fL [facility] RDW coefficient of variation 12.5 11.4 - 13.8 % [facility] Mean Platelet Volume 10.1 7.6 - 12.9 fL [facility] NRBC% auto 0.0 % [facility] NRBC Absolute 0.000 0.000 - 0.000 x10(3)/[facility] Blood 09/21/2022 3:27 AM EDT 09/21/2022 3:32 AM EDT Narrative Resulting Agency Comment Spec In Lab Chelsea Yung TRY ON BASTER HEMATOLOGY ORDERAB LES [facility] [place] [address] * (ABNORMAL) Basic Metabolic Panel (non-fasting) (09/21/2022 3:27 AM EDT) Glucose 106 65 - 199 mg/dL [facility] Comment:Diabetes: >=200 mg/d L plus symptoms Blood Urea Nitrogen 22(H) 10 - 20 mg/dL [facility] Creatinine 0.75(L) 0.80 - 1.50 mg/dL [facility] Sodium 136 135 - 145 mmol/L [facility] Potassium 4.3 3.5 - 5.0 mmol/L [facility] Comment: Please note: ??Patients with WBC >100,000 may have falsely elevated Potassium levels. ??For accurate Potassium quantification in these patients send serum separator tube (gold top) for subsequent determinations. ??Contact the Clinical Chemistry Laboratory if there are any questions. Chloride 101 98 - 107 mmol/L [facility] Carbon Dioxide 25 22 - 31 mmol/L [facility] Anion Gap 10 5 - 15 mmol/L [facility] Calcium 8.6 8.5 - 10.5 mg/dL [facility] Est Glomerular Filtration Rate 103 >=60 mL/min/1. 73 m?? [facility] Comment: This patient's estimated GFR was [...] Narrative Resulting Agency Comment Spec [facility] CHE[facility] ORDERABL ES Performing Organization Address [facility] Co de Phone Number [facility] [place] [address] * Potassium (09/20/2022 4:04 AM EDT) Potassium 4.4 3.5 - 5.0 mmol/L [facility] Comment: Please note: ??Patients with WBC >100,000 may have falsely elevated Potassium levels. ??For accurate Potassium quantification in these patients send serum separator tube (gold top) for subsequent determinations. ??Contact the Clinical Chemistry Laboratory if there are any questions. Blood 09/20/2022 4:04 AM EDT 09/20/2022 4:27 AM EDT Narrative Resulting Agency Comment Spec In Lab Chelsea Dilshad TRY ON BASTER CHEMISTRY ORDERABL ES Performing Organization Address City/[facility]/ZIP Co de Phone Number [facility] [place] [address] * POCT Glucose (09/19/2022 1:15 PM EDT) Glucose, POC 137 65 - 199 mg/dL [facility] Comment: Supplemental ranges: <140 mg/dL before meals <180 mg/dL all other times of the day Blood 09/19/2022 1:15 PM EDT 09/19/2022 1:15 PM EDT Mono Chavarria MD POINT OF CARE TEST ORDERABLES [facility] [place] [place] [address] * EKG 12 Lead (09/19/2022 7:20 AM EDT) Ventricular rate 73 BPM MUSE SYSTEM Atrial Rate 68 BPM MUSE SYSTEM QRS Duration 124 ms MUSE SYSTEM Q-T Interval 436 ms MUSE SYSTEM QTC Calculated (Bezet) 480 ms MUSE SYSTEM Calculated R Graham 4 degrees MUSE SYSTEM Calculated T Graham 104 degrees MUSE SYSTEM INTERPRETATION Accelerated Junctional [...] fellows interpretation Confirmed by fellow Pedro Andrea ([id number]) on 09/19/2022 10:08:14 AM Confirmed by MD Dominic, Dustin ([id number]) on 09/19/2022 11:20:34 AM MUSE SYSTEM 09/19/2022 7:20 AM EDT 09/19/2022 11:20 AM EDT Chelsea Yung APRN ECG ORDERABLES MUSE SYSTEM * (ABNORMAL) Troponin (09/19/2022 6:13 AM EDT) Troponin-T, High Sensitivity 341(H) <=22 ng/L [facility] Comment: This patient's troponin T concentration [...] troponin value can be found in the [facility] Test Catalog Troponin - [facility] Test Catalog Reference: Fourth Niotaze Definition of Myocardial Infarction. Journal of the [employer] 2018;72:3396-2775 Blood 09/19/2022 6:13 AM EDT 09/19/2022 6:18 AM EDT Narrative Resulting Agency Comment Spec In Lab Mono Chavarria MD CHEMISTRY ORDERABLE S Performing Organization Address City/State/[facility] Co de Phone Number [facility] [place] [address] * (ABNORMAL) Coox2 (09/19/2022 5:00 AM EDT) pO2, Coox 34 mmHg [facility] Hgb Blood Gas 12.3(L) 13.7 - 16.5 g/dL [facility] Oxyhemoglobin, Coox 69.0 % [facility] Carboxyhemoglo bin, Coox 0.3 % [facility] Comment: Nonsmokers: 0.5-1.5% COHB Smokers: Variable, but usually less than 10% Toxic: 20-30% COHB Lethal: Greater than 60% COHB Methemoglobin, Coox 0.7 <=1.5 % [facility] Source Coox Mixed Venous [facility] Blood 09/19/2022 5:00 AM EDT 09/19/2022 5:00 AM EDT Mono Chavarria MD POINT OF CARE TEST ORDERABLES [facility] One [facility] [place] [address] * (ABNORMAL) BLOOD GAS 2 ARTERIAL (09/19/2022 4:57 AM EDT) pH, Arterial 7.41 7.35 - 7.45 [facility] PCO2, Arterial 35 35 - 45 mmHg [facility] PO2, Arterial 94 85 - 104 mmHg [facility] Bicarbonate, Arterial 21.8 20.0 - 26.0 mmol/L [facility] Base Excess, Arterial -2.9 -3.0 - 3.0 mmol/L [facility] Hgb Blood Gas 12.4(L) 13.7 - 16.5 g/dL [facility] Oxyhemoglobin, Arterial 95.8 94.0 - 97.0 % [facility] Carboxyhemoglob in, Arterial 0.3 % [facility] Comment: Nonsmokers: 0.5-1.5% COHB Smokers: Variable, but usually less than 10% Toxic: 20-30% COHB Lethal: Greater than 60% COHB Methemoglobin, Arterial 0.8 <=1.5 % [facility] Na Whole Blood 140 135 - 145 mmol/L [facility] K Whole Blood 4.6 3.5 - 5.0 mmol/L [facility] Comment: Please note: Patients with WBC >100,000 may have falsely elevated Potassium levels. Contact the Clinical Chemistry Laboratory if there are any questions. ICa Whole Blood 1.20 1.15 - 1.33 mmol/L [facility] Comment: Note: ??Total bilirubin higher than 20 mg/dL may lead to falsely low ionized calcium. CL Whole Blood 106 98 - 107 mmol/L [facility] Gluc Whole Bld 151 65 - 199 mg/dL [facility] Comment:Diabetes: >=200 mg/d L plus symptoms. Lactate WB 1.8 0.5 - 2.2 mmol/L [facility] Flow Art 4.0 LPM [facility] Blood 09/19/2022 4:57 AM EDT 09/19/2022 4:57 AM EDT Mono Chavarria MD POINT OF CARE TEST ORDERABLES Performing Organization Address [facility] Co de Phone Number [facility] [place] [address] * (ABNORMAL) Coox2 (09/19/2022 2:20 AM EDT) pO2, Coox 34 mmHg [facility] Hgb Blood Gas 12.0(L) 13.7 - 16.5 g/dL [facility] Oxyhemoglobin, Coox 71.3 % [facility] Carboxyhemoglo bin, Coox 0.0 % [facility] Comment: Nonsmokers: 0.5-1.5% COHB Smokers: Variable, but usually less than 10% Toxic: 20-30% COHB Lethal: Greater than 60% COHB Methemoglobin, Coox 0.7 <=1.5 % [facility] Source Coox Mixed Venous [facility] Blood 09/19/2022 2:20 AM EDT 09/19/2022 2:20 AM EDT Mono Chavarria MD POINT OF CARE TEST ORDERABLES Performing Organization Address [facility] Co de Phone Number [facility] [place] [address] * (ABNORMAL) BLOOD GAS 2 ARTERIAL (09/19/2022 2:17 AM EDT) pH, Arterial 7.42 7.35 - 7.45 [facility] PCO2, Arterial 36 35 - 45 mmHg [facility] PO2, Arterial 88 85 - 104 mmHg [facility] Bicarbonate, Arterial 22.5 20.0 - 26.0 mmol/L [facility] Base Excess, Arterial -2.0 -3.0 - 3.0 mmol/L [facility] Hgb Blood Gas 12.2(L) 13.7 - 16.5 g/dL [facility] Oxyhemoglobin, Arterial 95.4 94.0 - 97.0 % [facility] Carboxyhemoglob in, Arterial 0.3 % [facility] Comment: Nonsmokers: 0.5-1.5% COHB Smokers: Variable, but usually less than 10% Toxic: 20-30% COHB Lethal: Greater than 60% COHB Methemoglobin, Arterial 0.7 <=1.5 % [facility] Na Whole Blood 140 135 - 145 mmol/L [facility] K Whole Blood 4.8 3.5 - 5.0 mmol/L [facility] Comment: Please note: Patients with WBC >100,000 may have falsely elevated Potassium levels. Contact the Clinical Chemistry Laboratory if there are any questions. ICa Whole Blood 1.21 1.15 - 1.33 mmol/L [facility] Comment: Note: ??Total bilirubin higher than 20 mg/dL may lead to falsely low ionized calcium. CL Whole Blood 106 98 - 107 mmol/L [facility] Gluc Whole Bld 146 65 - 199 mg/dL [facility] Comment:Diabetes: >=200 mg/d L plus symptoms. Lactate WB 1.8 0.5 - 2.2 mmol/L [facility] Flow Art 4.0 LPM [facility] Blood 09/19/2022 2:17 AM EDT 09/19/2022 2:17 AM EDT Mono Chavarria MD POINT OF CARE TEST ORDERABLES Performing Organization Address City/State/[facility] Co de Phone Number [facility] [place] [address] * (ABNORMAL) Differential, Automated (09/19/2022 2:13 AM EDT) Neutrophil % 82.3 % [facility] Neutrophil Absolute 9.55(H) 1.70 - 6.10 x10(3)/mc L [facility] Lymph % 6.6 % [facility] Lymphocytes Abs 0.8(L) 0.9 - 3.2 x10(3)/mc L [facility] Monocyte % 10.2 % [facility] Monocyte Abs 1.2(H) 0.3 - 0.9 x10(3)/mc L [facility] Eos % 0.2 % [facility] Eosinophils Abs 0.0 0.0 - 0.4 x10(3)/mc L [facility] Basophil % 0.3 % [facility] Baso Absolute 0.0 0.0 - 0.1 x10(3)/mc L [facility] Immature Gran % 0.40 % [facility] Comment: Immature granulocytes(IG's)percentage and absolute count will include metamyelocytes, myelocytes, and promyelocytes. Blood smears from CBCs yielding IG's will be scanned manually for concordance. If this scan disagrees with the automated IG or if promyelocytes are noted, a manual differential will be performed. Immature Gran Absolute 0.05(H) 0.00 - 0.04 x10(3)/ L [facility] Blood 09/19/2022 2:13 AM EDT 09/19/2022 2:34 AM EDT Narrative Resulting Agency Comment Spec In Lab Minesh MCKEON HEMATOLOGY ORDER CARO [facility] [place] [address] * (ABNORMAL) Hemogram (09/19/2022 2:13 AM EDT) White Blood Cell 11.6(H) 4.0 - 9.5 x10(3)/mc L [facility] Red Blood Cell 3.55(L) 4.58 - 5.54 x10(6)/ L [facility] Hemoglobin 10.8(L) 13.7 - 16.5 g/dL [facility] Hematocrit 32.1(L) 40.5 - 48.5 % [facility] Mean Cell Volume 90.4 82.9 - 93.1 fL [facility] Mean Cell Hemoglobin 30.4 27.5 - 32.1 pg [facility] Mean Cell Hemoglobin Concentration 33.6 32.0 - 35.7 g/dL [facility] Platelet 168 145 - 357 x10(3)/mc L [facility] RDW Standard Deviation 41.0 36.0 - 45.0 fL [facility] RDW coefficient of variation 12.3 11.4 - 13.8 % [facility] Mean Platelet Volume 10.1 7.6 - 12.9 fL [facility] NRBC% auto 0.0 % [facility] NRBC Absolute 0.000 0.000 - 0.000 x10(3)/mc L [facility] Blood 09/19/2022 2:13 AM EDT 09/19/2022 2:34 AM EDT Narrative Resulting Agency Comment Spec In Lab Minesh MCKEON HEMATOLOGY ORDER CARO [facility] [address] [place] [address] * Basic Metabolic Panel (non-fasting) (09/19/2022 2:13 AM EDT) Glucose 148 65 - 199 mg/dL [facility] Comment:Diabetes: >=200 mg/d L plus symptoms Blood Urea Nitrogen 17 10 - 20 mg/dL [facility] Creatinine 0.88 0.80 - 1.50 mg/dL [facility] Sodium 140 135 - 145 mmol/L [facility] Potassium 4.8 3.5 - 5.0 mmol/L [facility] Comment: Please note: ??Patients with WBC >100,000 may have falsely elevated Potassium levels. ??For accurate Potassium quantification in these patients send serum separator tube (gold top) for subsequent determinations. ??Contact the Clinical Chemistry Laboratory if there are any questions. Chloride 107 98 - 107 mmol/L [facility] Carbon Dioxide 22 22 - 31 mmol/L [facility] Anion Gap 11 5 - 15 mmol/L [facility] Calcium 8.7 8.5 - 10.5 mg/dL [facility] Est Glomerular Filtration Rate 98 >=60 mL/min/1. 73 m?? [facility] Comment: This patient's estimated GFR was [...] Lab Mono Chavarria MD CHEMISTRY ORDERABLE S [facility] [place] [address] * (ABNORMAL) BLOOD GAS 2 ARTERIAL (09/19/2022 12:49 AM EDT) pH, Arterial 7.42 7.35 - 7.45 [facility] PCO2, Arterial 37 35 - 45 mmHg [facility] PO2, Arterial 115(H) 85 - 104 mmHg [facility] Bicarbonate, Arterial 23.9 20.0 - 26.0 mmol/L [facility] Base Excess, Arterial -0.5 -3.0 - 3.0 mmol/L [facility] Hgb Blood Gas 11.8(L) 13.7 - 16.5 g/dL [facility] Oxyhemoglobin, Arterial 96.8 94.0 - 97.0 % [facility] Carboxyhemoglob in, Arterial 0.3 % [facility] Comment: Nonsmokers: 0.5-1.5% COHB Smokers: Variable, but usually less than 10% Toxic: 20-30% COHB Lethal: Greater than 60% COHB Methemoglobin, Arterial 0.8 <=1.5 % [facility] Na Whole Blood 138 135 - 145 mmol/L [facility] K Whole Blood 4.6 3.5 - 5.0 mmol/L [facility] Comment: Please note: Patients with WBC >100,000 may have falsely elevated Potassium levels. Contact the Clinical Chemistry Laboratory if there are any questions. ICa Whole Blood 1.20 1.15 - 1.33 mmol/L [facility] Comment: Note: ??Total bilirubin higher than 20 mg/dL may lead to falsely low ionized calcium. CL Whole Blood 106 98 - 107 mmol/L [facility] Gluc Whole Bld 131 65 - 199 mg/dL [facility] Comment:Diabetes: >=200 mg/d L plus symptoms. Lactate WB 1.8 0.5 - 2.2 mmol/L [facility] FIO2 Art 40 % [facility] PF Ratio Art 288 [facility] Blood 09/19/2022 12:4 9 AM EDT 09/19/2022 12:49 AM EDT Mono Chavarria MD POINT OF CARE TEST ORDERABLES Performing Organization Address [facility] Co de Phone Number [facility] [place] [address] * (ABNORMAL) Coox2 (09/19/2022 12:10 AM EDT) pO2, Coox 36 mmHg [facility] Hgb Blood Gas 11.2(L) 13.7 - 16.5 g/dL [facility] Oxyhemoglobin, Coox 71.6 % [facility] Carboxyhemoglo bin, Coox 0.3 % [facility] Comment: Nonsmokers: 0.5-1.5% COHB Smokers: Variable, but usually less than 10% Toxic: 20-30% COHB Lethal: Greater than 60% COHB Methemoglobin, Coox 0.7 <=1.5 % [facility] Source Coox Mixed Venous [facility] Blood 09/19/2022 12:1 0 AM EDT 09/19/2022 12:10 AM EDT Mono Chavarria MD POINT OF CARE TEST ORDERABLES Performing Organization Address City/[facility] Co de Phone Number [facility] [place] [address] * (ABNORMAL) Coox2 (09/18/2022 9:41 PM EDT) pO2, Coox 35 mmHg [facility] Hgb Blood Gas 11.5(L) 13.7 - 16.5 g/dL [facility] Oxyhemoglobin, Coox 69.6 % [facility] Carboxyhemoglo bin, Coox 0.3 % [facility] Comment: Nonsmokers: 0.5-1.5% COHB Smokers: Variable, but usually less than 10% Toxic: 20-30% COHB Lethal: Greater than 60% COHB Methemoglobin, Coox 0.7 <=1.5 % [facility] Source Coox Mixed Venous [facility] Blood 09/18/2022 9:41 PM EDT 09/18/2022 9:41 PM EDT Mono Chavarria MD POINT OF CARE TEST ORDERABLES [facility] [place] [address] * (ABNORMAL) BLOOD GAS 2 ARTERIAL (09/18/2022 9:38 PM EDT) pH, Arterial 7.39 7.35 - 7.45 [facility] PCO2, Arterial 41 35 - 45 mmHg [facility] PO2, Arterial 119(H) 85 - 104 mmHg [facility] Bicarbonate, Arterial 24.6 20.0 - 26.0 mmol/L [facility] Base Excess, Arterial -0.4 -3.0 - 3.0 mmol/L [facility] Hgb Blood Gas 12.5(L) 13.7 - 16.5 g/dL [facility] Oxyhemoglobin, Arterial 96.6 94.0 - 97.0 % [facility] Carboxyhemoglob in, Arterial 0.3 % [facility] Comment: Nonsmokers: 0.5-1.5% COHB Smokers: Variable, but usually less than 10% Toxic: 20-30% COHB Lethal: Greater than 60% COHB Methemoglobin, Arterial 0.8 <=1.5 % [facility] Na Whole Blood 138 135 - 145 mmol/L [facility] K Whole Blood 4.5 3.5 - 5.0 mmol/L [facility] Comment: Please note: Patients with WBC >100,000 may have falsely elevated Potassium levels. Contact the Clinical Chemistry Laboratory if there are any questions. ICa Whole Blood 1.26 1.15 - 1.33 mmol/L [facility] Comment: Note: ??Total bilirubin higher than 20 mg/dL may lead to falsely low ionized calcium. CL Whole Blood 105 98 - 107 mmol/L [facility] Gluc Whole Bld 143 65 - 199 mg/dL [facility] Comment:Diabetes: >=200 mg/d L plus symptoms. Lactate WB 2.9(H) 0.5 - 2.2 mmol/L [facility] FIO2 Art 40 % [facility] PF Ratio Art 298 [facility] Blood 09/18/2022 9:38 PM EDT 09/18/2022 9:38 PM EDT Mono Chavarria MD POINT OF CARE TEST ORDERABLES Performing Organization Address [facility]/ZIP Co de Phone Number [facility] [place] [address] * (ABNORMAL) Hemoglobin (09/18/2022 9:31 PM EDT) Hemoglobin 10.2(L) 13.7 - 16.5 g/dL [facility] Blood 09/18/2022 9:31 PM EDT 09/18/2022 9:42 PM EDT Narrative Resulting Agency Comment Spec In Lab Mono Chavarria MD HEMATOLOGY ORDERABL ES Performing Organization Address [facility] Co de Phone Number [facility] [place] [address] * Potassium (09/18/2022 9:31 PM EDT) Potassium 4.6 3.5 - 5.0 mmol/L [facility] Comment: Please note: ??Patients with [...] MD CHEMISTRY ORDERABLE S Performing Organization Address [facility]/ZIP Co de Phone Number [facility] [place] [address] * (ABNORMAL) Coox2 (09/18/2022 8:04 PM EDT) pO2, Coox 33 mmHg [facility] Hgb Blood Gas 11.3(L) 13.7 - 16.5 g/dL [facility] Oxyhemoglobin, Coox 65.3 % [facility] Carboxyhemoglo bin, Coox 0.1 % [facility] Comment: Nonsmokers: 0.5-1.5% COHB Smokers: Variable, but usually less than 10% Toxic: 20-30% COHB Lethal: Greater than 60% COHB Methemoglobin, Coox 0.6 <=1.5 % [facility] Source Coox Mixed Venous [facility] Blood 09/18/2022 8:04 PM EDT 09/18/2022 8:04 PM EDT Mono Chavarria MD POINT OF CARE TEST ORDERABLES Performing Organization Address City/State/[facility] Co de Phone Number [facility] [place] [address] * (ABNORMAL) BLOOD GAS 2 ARTERIAL (09/18/2022 8:01 PM EDT) pH, Arterial 7.40 7.35 - 7.45 [facility] PCO2, Arterial 37 35 - 45 mmHg [facility] PO2, Arterial 66(L) 85 - 104 mmHg [facility] Bicarbonate, Arterial 22.2 20.0 - 26.0 mmol/L [facility] Base Excess, Arterial -2.7 -3.0 - 3.0 mmol/L [facility] Hgb Blood Gas 11.4(L) 13.7 - 16.5 g/dL [facility] Oxyhemoglobin, Arterial 91.6(L) 94.0 - 97.0 % [facility] Carboxyhemoglob in, Arterial 0.3 % [facility] Comment: Nonsmokers: 0.5-1.5% COHB Smokers: Variable, but usually less than 10% Toxic: 20-30% COHB Lethal: Greater than 60% COHB Methemoglobin, Arterial 0.7 <=1.5 % [facility] Na Whole Blood 137 135 - 145 mmol/L [facility] K Whole Blood 4.2 3.5 - 5.0 mmol/L [facility] Comment: Please note: Patients with WBC >100,000 may have falsely elevated Potassium levels. Contact the Clinical Chemistry Laboratory if there are any questions. ICa Whole Blood 1.27 1.15 - 1.33 mmol/L [facility] Comment: Note: ??Total bilirubin higher than 20 mg/dL may lead to falsely low ionized calcium. CL Whole Blood 105 98 - 107 mmol/L [facility] Gluc Whole Bld 162 65 - 199 mg/dL [facility] Comment:Diabetes: >=200 mg/d L plus symptoms. Lactate WB 2.1 0.5 - 2.2 mmol/L [facility] FIO2 Art 40 % [facility] PF Ratio Art 165 [facility] Blood 09/18/2022 8:01 PM EDT 09/18/2022 8:01 PM EDT Mono Chavarria MD POINT OF CARE TEST ORDERABLES [facility] [place] [address] * XR Chest One View (09/18/2022 6:51 [...] questions please contact the health director of patient care that requested your imaging first. ? Electronically signed by: Swathi Carias MD, [facility] ([phone]), at 09/18/2022 7:05 PM Narrative 09/18/2022 7:05 [...] have questions please contactthe health director of patient care that requested your imaging first. Electronically signed by: Swathi Carias MD, [facility]([phone]), at 09/18/2022 7:05 PM Mono Chavarria MD IMG DX ORDERABLES * EKG 12 Lead (09/18/2022 6:38 PM EDT) Ventricular rate 41 BPM MUSE SYSTEM Atrial Rate 41 BPM MUSE SYSTEM P-R Interval 248 ms MUSE SYSTEM QRS Duration 138 ms MUSE SYSTEM Q-T Interval 482 ms MUSE SYSTEM QTC Calculated (Bezet) 397 ms MUSE SYSTEM Calculated P Graham 43 degrees MUSE SYSTEM Calculated R Graham 18 degrees MUSE SYSTEM Calculated T Graham 54 degrees MUSE SYSTEM INTERPRETATION Marked sinus bradycardia with 1st degree A-V block with Premature atrial complexes Non-specific intra-ventricu lar conduction block Minimal voltage criteria for LVH, may be normal variant ( Rapidan product ) Abnormal ECG When compared with ECG of 02-SEP-2022 21:48, Premature atrial complexes are now Present CA interval has increased Minimal criteria for Septal infarct are no longer Present T wave inversion no longer evident in Lateral leads Confirmed by MD STATON SALVATORE ([id number]) on 09/19/2022 8:09:50 AM MUSE SYSTEM 09/18/2022 6:38 PM EDT 09/19/2022 8:09 AM EDT Mono Chavarria MD ECG ORDERABLES MUSE SYSTEM * (ABNORMAL) Coox2 (09/18/2022 6:26 PM EDT) pO2, Coox 57 mmHg [facility] Hgb Blood Gas 11.9(L) 13.7 - 16.5 g/dL [facility] Oxyhemoglobin, Coox 86.3 % [facility] Carboxyhemoglo bin, Coox 0.3 % [facility] Comment: Nonsmokers: 0.5-1.5% COHB Smokers: Variable, but usually less than 10% Toxic: 20-30% COHB Lethal: Greater than 60% COHB Methemoglobin, Coox 0.8 <=1.5 % [facility] Source Coox Mixed Venous [facility] Blood 09/18/2022 6:26 PM EDT 09/18/2022 6:26 PM EDT Mono Chavarria MD POINT OF CARE TEST ORDERABLES [facility] [address] [place] [address] * (ABNORMAL) BLOOD GAS 2 ARTERIAL (09/18/2022 6:23 PM EDT) pH, Arterial 7.31(L) 7.35 - 7.45 [facility] PCO2, Arterial 49(H) 35 - 45 mmHg [facility] PO2, Arterial 386(H) 85 - 104 mmHg [facility] Bicarbonate, Arterial 24.2 20.0 - 26.0 mmol/L [facility] Base Excess, Arterial -2.1 -3.0 - 3.0 mmol/L [facility] Hgb Blood Gas 11.9(L) 13.7 - 16.5 g/dL [facility] Oxyhemoglobin, Arterial 97.9(H) 94.0 - 97.0 % [facility] Carboxyhemoglob in, Arterial 0.3 % [facility] Comment: Nonsmokers: 0.5-1.5% COHB Smokers: Variable, but usually less than 10% Toxic: 20-30% COHB Lethal: Greater than 60% COHB Methemoglobin, Arterial 0.7 <=1.5 % [facility] Na Whole Blood 139 135 - 145 mmol/L [facility] K Whole Blood 4.3 3.5 - 5.0 mmol/L [facility] Comment: Please note: Patients with WBC >100,000 may have falsely elevated Potassium levels. Contact the Clinical Chemistry Laboratory if there are any questions. ICa Whole Blood 1.27 1.15 - 1.33 mmol/L [facility] Comment: Note: ??Total bilirubin higher than 20 mg/dL may lead to falsely low ionized calcium. CL Whole Blood 106 98 - 107 mmol/L [facility] Gluc Whole Bld 175 65 - 199 mg/dL [facility] Comment:Diabetes: >=200 mg/d L plus symptoms. Lactate WB 2.4(H) 0.5 - 2.2 mmol/L [facility] FIO2 Art 100 % [facility] PF Ratio Art 386 [facility] Blood 09/18/2022 6:23 PM EDT 09/18/2022 6:23 PM EDT Mono Chavarria MD POINT OF CARE TEST ORDERABLES [facility] [place] [address] * (ABNORMAL) BLOOD GAS 2 ARTERIAL (09/18/2022 5:19 PM EDT) pH, Arterial 7.28(Crit ical) 7.35 - 7.45 [facility] Comment: Critical notified to Madelaine Hardin by musical instruments assembler immediately following run time. PCO2, Arterial 46(H) 35 - 45 mmHg [facility] PO2, Arterial 256(H) 85 - 104 mmHg [facility] Bicarbonate, Arterial 21.4 20.0 - 26.0 mmol/L [facility] Base Excess, Arterial -5.3(L) -3.0 - 3.0 mmol/L [facility] Hgb Blood Gas 13.0(L) 13.7 - 16.5 g/dL [facility] Oxyhemoglobin, Arterial 98.8(H) 94.0 - 97.0 % [facility] Carboxyhemoglobi n, Arterial 0.3 % [facility] Comment: Nonsmokers: 0.5-1.5% COHB Smokers: Variable, but usually less than 10% Toxic: 20-30% COHB Lethal: Greater than 60% COHB Methemoglobin, Arterial 0.3 <=1.5 % [facility] Na Whole Blood 138 135 - 145 mmol/L [facility] K Whole Blood 4.6 3.5 - 5.0 mmol/L [facility] Comment: Please note: Patients with WBC >100,000 may have falsely elevated Potassium levels. Contact the Clinical Chemistry Laboratory if there are any questions. ICa Whole Blood 1.05(L) 1.15 - 1.33 mmol/L [facility] Comment: Note: ??Total bilirubin higher than 20 mg/dL may lead to falsely low ionized calcium. CL Whole Blood 106 98 - 107 mmol/L [facility] Gluc Whole Bld 172 65 - 199 mg/dL [facility] Comment:Diabetes: >=200 mg/d L plus symptoms. Lactate WB 1.8 0.5 - 2.2 mmol/L [facility] Blood 09/18/2022 5:19 PM EDT 09/18/2022 5:19 PM EDT Mono Chavarria MD POINT OF CARE TEST ORDERABLES Performing Organization Address [facility] Co de Phone Number [facility] [place] [address] * Prepare Coag Factors (Non-Hemophilia) (09/18/2022 5:05 PM EDT) Dispensed? Yes [facility] Blood 09/18/2022 5:05 PM EDT 09/18/2022 5:17 PM EDT Madelaine Hardin MD BLOOD BANK PRODUCT O RDERABLES Performing Organization Address [facility] Co de Phone Number [facility] [place] [place] [address] * Prepare thawed plasma (09/18/2022 4:50 PM EDT) Dispensed? Yes [facility] Blood 09/18/2022 4:50 PM EDT 09/18/2022 4:48 PM EDT Mono Chavarria MD BLOOD BANK PRODUCT ORDERABLES Performing Organization Address [facility] Co de Phone Number [facility] [place] [address] * (ABNORMAL) Thrombin time (09/18/2022 4:05 PM EDT) Thrombin Time 47(H) 10 - 17 sec [facility] Comment: OR Result called by ?? [...] Resulting Agency Comment Spec In Lab Madelaine Hardin MD HEMATOLOGY ORDERABLE S Performing Organization Address [facility] Co de Phone Number [facility] [place] [address] * Fibrinogen (09/18/2022 4:05 PM EDT) Fibrinogen 283 200 - 393 mg/dL [facility] Comment: OR Result called by ?? FINDTM OR Results read back by: ? Ca Schultz A fibrinogen level >100 mg/dL is adequate for hemostasis in most patients without underlying bleeding disorders. Blood 09/18/2022 4:05 PM EDT 09/18/2022 4:15 PM EDT Narrative Resulting Agency Comment Spec In Lab Madelaine Hardin MD HEMATOLOGY ORDERABLE S Performing Organization Address [facility] de Phone Number [facility] [place] [address] * (ABNORMAL) APTT (09/18/2022 4:05 PM EDT) Partial Thromboplastin Time 51(H) 25 - 37 sec [facility] Comment: OR Result called by ?? [...] Resulting Agency Comment Spec In Lab Madelaine Hardin MD HEMATOLOGY ORDERABLE S Performing Organization Address [place] [facility] Co de Phone Number [facility] [place] [address] * (ABNORMAL) Prothrombin Time (09/18/2022 4:05 PM EDT) Prothrombin Time 13.6(H) 9.4 - 12.5 sec [facility] Comment:OR Result called by FINDTM OR Results read back by: Ca Schultz International Normalization Ratio 1.2 [facility] Comment: OR Result called by ?? [...] Resulting Agency Comment Spec In Lab Madelaine Hardin MD HEMATOLOGY ORDERABLE S [facility] [place] [address] * (ABNORMAL) Hemogram (09/18/2022 4:05 PM EDT) White Blood Cell 12.2(H) 4.0 - 9.5 x10(3)/mc L [facility] Red Blood Cell 3.84(L) 4.58 - 5.54 x10(6)/mc L [facility] Hemoglobin 11.9(L) 13.7 - 16.5 g/dL [facility] Hematocrit 35.4(L) 40.5 - 48.5 % [facility] Comment: This result has been called to CA SCHULTZ by David Lovelace on 09 18 2022 at 1621, and has been read back. Mean Cell Volume 92.2 82.9 - 93.1 fL [facility] Mean Cell Hemoglobin 31.0 27.5 - 32.1 pg [facility] Mean Cell Hemoglobin Concentration 33.6 32.0 - 35.7 g/dL [facility] Platelet 166 145 - 357 x10(3)/mc L [facility] RDW Standard Deviation 41.4 36.0 - 45.0 fL [facility] RDW coefficient of variation 12.2 11.4 - 13.8 % [facility] Mean Platelet Volume 10.0 7.6 - 12.9 fL [facility] NRBC% auto 0.0 % [facility] NRBC Absolute 0.000 0.000 - 0.000 x10(3)/mc L [facility] Blood 09/18/2022 4:05 PM EDT 09/18/2022 4:15 PM EDT Narrative Resulting Agency Comment Spec In Lab Madelaine Hardin MD HEMATOLOGY ORDERABLE S [facility] [place] [address] * (ABNORMAL) BLOOD GAS 2 ARTERIAL (09/18/2022 3:35 PM EDT) pH, Arterial 7.38 7.35 - 7.45 [facility] PCO2, Arterial 36 35 - 45 mmHg [facility] PO2, Arterial 234(H) 85 - 104 mmHg [facility] Bicarbonate, Arterial 21.2 20.0 - 26.0 mmol/L [facility] Base Excess, Arterial -3.8(L) -3.0 - 3.0 mmol/L [facility] Hgb Blood Gas 12.5(L) 13.7 - 16.5 g/dL [facility] Oxyhemoglobin, Arterial 98.9(H) 94.0 - 97.0 % [facility] Carboxyhemoglob in, Arterial 0.1 % [facility] Comment: Nonsmokers: 0.5-1.5% COHB Smokers: Variable, but usually less than 10% Toxic: 20-30% COHB Lethal: Greater than 60% COHB Methemoglobin, Arterial 0.3 <=1.5 % [facility] Na Whole Blood 135 135 - 145 mmol/L [facility] K Whole Blood 5.4(H) 3.5 - 5.0 mmol/L [facility] Comment: Please note: Patients with WBC >100,000 may have falsely elevated Potassium levels. Contact the Clinical Chemistry Laboratory if there are any questions. ICa Whole Blood 1.02(L) 1.15 - 1.33 mmol/L [facility] Comment: Note: ??Total bilirubin higher than 20 mg/dL may lead to falsely low ionized calcium. CL Whole Blood 106 98 - 107 mmol/L [facility] Gluc Whole Bld 112 65 - 199 mg/dL [facility] Comment:Diabetes: >=200 mg/d L plus symptoms. Lactate WB 1.6 0.5 - 2.2 mmol/L [facility] Blood 09/18/2022 3:35 PM EDT 09/18/2022 3:35 PM EDT Mono Chavarria MD POINT OF CARE TEST ORDERABLES Performing Organization Address [facility] Co de Phone Number [facility] [place] [address] * Prepare Platelets, Apheresis (09/18/2022 3:05 PM EDT) Dispensed? Yes [facility] Blood 09/18/2022 3:05 PM EDT 09/18/2022 3:05 PM EDT Mono Chavarria MD BLOOD BANK PRODUCT ORDERABLES Performing Organization Address [facility] Co de Phone Number [facility] [place] [address] * (ABNORMAL) Thrombin time (09/18/2022 3:00 PM EDT) Thrombin Time 37(H) 10 - 17 sec [facility] Comment: OR Result called by ?? [...] Resulting Agency Comment Spec In Lab Madelaine Hardin MD HEMATOLOGY ORDERABLE S Performing Organization Address City/[facility] Co de Phone Number [facility] [place] [address] * (ABNORMAL) Fibrinogen (09/18/2022 3:00 PM EDT) Fibrinogen 198(L) 200 - 393 mg/dL [facility] Comment: OR Result called by ?? BELAZEV OR Results read back by: ? ZACH MORALES at 2022-09-18 15:51:06 A fibrinogen level >100 mg/dL is adequate for hemostasis in most patients without underlying bleeding disorders. Blood 09/18/2022 3:00 PM EDT 09/18/2022 3:38 PM EDT Narrative Resulting Agency Comment Spec In Lab Madelaine Hardin MD HEMATOLOGY ORDERABLE S Performing Organization Address [facility] de Phone Number [facility] [place] [address] * (ABNORMAL) APTT (09/18/2022 3:00 PM EDT) Partial Thromboplastin Time 49(H) 25 - 37 sec [facility] Comment: OR Result called by ?? [...] Resulting Agency Comment Spec In Lab Madelaine Hardin MD HEMATOLOGY ORDERABLE S Performing Organization Address [facility] Co de Phone Number [facility] [place] [address] * (ABNORMAL) Prothrombin Time (09/18/2022 3:00 PM EDT) Prothrombin Time 15.7(H) 9.4 - 12.5 sec [facility] Comment: OR Result called by ?? BELAZEV OR Results read back by: ? ZACH MORALES at 2022-09-18 15:51:06 International Normalization Ratio 1.4 [facility] Comment: OR Result called by ?? [...] Resulting Agency Comment Spec In Lab Madelaine Hardin MD HEMATOLOGY ORDERABLE S Performing Organization Address City/State/[facility] Co de Phone Number [facility] [place] [place] [address] * (ABNORMAL) Hemogram (09/18/2022 3:00 PM EDT) White Blood Cell 11.8(H) 4.0 - 9.5 x10(3)/mc L [facility] Red Blood Cell 3.92(L) 4.58 - 5.54 x10(6)/mc L [facility] Hemoglobin 12.1(L) 13.7 - 16.5 g/dL [facility] Hematocrit 35.9(L) 40.5 - 48.5 % [facility] Comment: This result has been called to MADELAINE HARDIN by Parminder Boles on 09 18 2022 at 1551, and has been read back. Mean Cell Volume 91.6 82.9 - 93.1 fL [facility] Mean Cell Hemoglobin 30.9 27.5 - 32.1 pg [facility] Mean Cell Hemoglobin Concentration 33.7 32.0 - 35.7 g/dL [facility] Platelet 160 145 - 357 x10(3)/mc L [facility] RDW Standard Deviation 41.0 36.0 - 45.0 fL [facility] RDW coefficient of variation 12.2 11.4 - 13.8 % [facility] Mean Platelet Volume 10.1 7.6 - 12.9 fL [facility] NRBC% auto 0.0 % [facility] NRBC Absolute 0.000 0.000 - 0.000 x10(3)/mc L [facility] Blood 09/18/2022 3:00 PM EDT 09/18/2022 3:38 PM EDT Narrative Resulting Agency Comment Spec In Lab Madelaine Hardin MD HEMATOLOGY ORDERABLE S Performing Organization Address [facility]/ZIP Co de Phone Number [facility] [place] [place] [address] * Prepare cryoprecipitate (09/18/2022 2:55 PM EDT) Dispensed? Yes [facility] Blood 09/18/2022 2:55 PM EDT 09/18/2022 2:53 PM EDT Mono Chavarria MD BLOOD BANK PRODUCT ORDERABLES Performing Organization Address [facility] Co de Phone Number [facility] [place] [address] * Platelet count (09/18/2022 2:53 PM EDT) Platelet 164 145 - 357 x10(3)/mc L [facility] Immature Plt % 3.8 0.0 - 7.4 % [facility] Comment: Limitation of the Immature Platelet Fraction (IPF)-May be less reliable when the platelet count is less than [id number]/uL due to statistical imprecision. The IPF value [...] in a decreased state of production. References: [employer] The Clinical Value of the Immature Platelet Fraction (IPF) in Cell Recovery Document Number [id number] 10/2010 [employer] The Role of the Immature Platelet Fraction (IPF) in the Differential Diagnosis of Thrombocytopenia, Document [id number] [id number] Blood 09/18/2022 2:53 PM EDT 09/18/2022 2:58 PM EDT Narrative Resulting Agency Comment Spec In Lab Mono Chavarria MD HEMATOLOGY ORDERABL ES Performing Organization Address City/[facility]/ZIP Co de Phone Number [facility] [place] [address] * (ABNORMAL) Hemoglobin and Hematocrit, blood (09/18/2022 2:53 PM EDT) Hemoglobin 11.8(L) 13.7 - 16.5 g/dL [facility] Hematocrit 35.4(L) 40.5 - 48.5 % [facility] Comment: This result has been called to ZACH MORALES by Parminder Boles on 09 18 2022 at 1504, and has been read back. Blood 09/18/2022 2:53 PM EDT 09/18/2022 2:58 PM EDT Narrative Resulting Agency Comment Spec In Lab Mono Chavarria MD HEMATOLOGY ORDERABL ES Performing Organization Address [facility] Co de Phone Number [facility] [place] [address] * (ABNORMAL) Fibrinogen (09/18/2022 2:53 PM EDT) Fibrinogen 190(L) 200 - 393 mg/dL [facility] Comment: OR Result called by ?? DOMITILA OR Results read back by: ? zach morales at 2022-09-18 15:09:05 A fibrinogen level >100 mg/dL is adequate for hemostasis in most patients without underlying bleeding disorders. Blood 09/18/2022 2:53 PM EDT 09/18/2022 2:58 PM EDT Narrative Resulting Agency Comment Spec In Lab Mono Chavarria MD HEMATOLOGY ORDERABL ES [facility] [place] [address] * (ABNORMAL) BLOOD GAS 2 ARTERIAL (09/18/2022 2:42 PM EDT) pH, Arterial 7.38 7.35 - 7.45 [facility] PCO2, Arterial 41 35 - 45 mmHg [facility] PO2, Arterial 462(H) 85 - 104 mmHg [facility] Bicarbonate, Arterial 23.9 20.0 - 26.0 mmol/L [facility] Base Excess, Arterial -1.1 -3.0 - 3.0 mmol/L [facility] Hgb Blood Gas 12.7(L) 13.7 - 16.5 g/dL [facility] Oxyhemoglobin, Arterial 99.0(H) 94.0 - 97.0 % [facility] Carboxyhemoglob in, Arterial 0.3 % [facility] Comment: Nonsmokers: 0.5-1.5% COHB Smokers: Variable, but usually less than 10% Toxic: 20-30% COHB Lethal: Greater than 60% COHB Methemoglobin, Arterial 0.3 <=1.5 % [facility] Na Whole Blood 134(L) 135 - 145 mmol/L [facility] K Whole Blood 5.4(H) 3.5 - 5.0 mmol/L [facility] Comment: Please note: Patients with WBC >100,000 may have falsely elevated Potassium levels. Contact the Clinical Chemistry Laboratory if there are any questions. ICa Whole Blood 1.07(L) 1.15 - 1.33 mmol/L [facility] Comment: Note: ??Total bilirubin higher than 20 mg/dL may lead to falsely low ionized calcium. CL Whole Blood 103 98 - 107 mmol/L [facility] Gluc Whole Bld 118 65 - 199 mg/dL [facility] Comment:Diabetes: >=200 mg/d L plus symptoms. Lactate WB 1.6 0.5 - 2.2 mmol/L [facility] Blood 09/18/2022 2:42 PM EDT 09/18/2022 2:42 PM EDT Mono Chavarria MD POINT OF CARE TEST ORDERABLES [facility] [place] [address] * (ABNORMAL) BLOOD GAS 2 ARTERIAL (09/18/2022 2:12 PM EDT) pH, Arterial 7.37 7.35 - 7.45 [facility] PCO2, Arterial 42 35 - 45 mmHg [facility] PO2, Arterial 488(H) 85 - 104 mmHg [facility] Bicarbonate, Arterial 24.0 20.0 - 26.0 mmol/L [facility] Base Excess, Arterial -1.3 -3.0 - 3.0 mmol/L [facility] Hgb Blood Gas 12.1(L) 13.7 - 16.5 g/dL [facility] Oxyhemoglobin, Arterial 98.9(H) 94.0 - 97.0 % [facility] Carboxyhemoglob in, Arterial 0.4 % [facility] Comment: Nonsmokers: 0.5-1.5% COHB Smokers: Variable, but usually less than 10% Toxic: 20-30% COHB Lethal: Greater than 60% COHB Methemoglobin, Arterial 0.3 <=1.5 % [facility] Na Whole Blood 134(L) 135 - 145 mmol/L [facility] K Whole Blood 5.0 3.5 - 5.0 mmol/L [facility] Comment: Please note: Patients with WBC >100,000 may have falsely elevated Potassium levels. Contact the Clinical Chemistry Laboratory if there are any questions. ICa Whole Blood 1.05(L) 1.15 - 1.33 mmol/L [facility] Comment: Note: ??Total bilirubin higher than 20 mg/dL may lead to falsely low ionized calcium. CL Whole Blood 102 98 - 107 mmol/L [facility] Gluc Whole Bld 100 65 - 199 mg/dL [facility] Comment:Diabetes: >=200 mg/d L plus symptoms. Lactate WB 1.4 0.5 - 2.2 mmol/L [facility] Blood 09/18/2022 2:12 PM EDT 09/18/2022 2:12 PM EDT Mono Chavarria MD POINT OF CARE TEST ORDERABLES Performing Organization Address [facility] Co de Phone Number [facility] [place] [address] * Specimen to Pathology (09/18/2022 1:58 PM EDT) AP Specimen 09/18/2022 1:58 PM EDT 09/18/2022 1:58 PM EDT Narrative [facility] - 09/18/2022 1:58 PM EDT Specimen requisition ordered. ??Separate Pathology report to follow Mono Chavarria MD PATHOLOGY/CYTOLOGY ORDERABLES Performing Organization Address [facility] Co de Phone Number [facility] [place] [address] * Specimen to Pathology (09/18/2022 1:58 PM EDT) AP Specimen 09/18/2022 1:58 PM EDT 09/18/2022 1:58 PM EDT Narrative [facility] - 09/18/2022 1:58 PM EDT Specimen requisition ordered. ??Separate Pathology report to follow Mono Chavarria MD PATHOLOGY/CYTOLOGY ORDERABLES Performing Organization Address [facility] [place] [address] * Surgical Pathology Report (09/18/2022 1:56 PM EDT) Final Diagnosis [id number] ? Location: CVCC; CV29; A The signing [...] Bravo Verified: ??09/23/2022 10:18 ??Pathologist Performed at: ??-[facility] Dept. of Pathology, [place] [address] Link Cutter: Jay Bryson MD, AP, ??CLIA Certificate: [id number] SPECIMEN(S) SUBMITTED A - Aortic valve, excision (Multiple) B - Ascending aorta, excision (Multiple) CLINICAL INFORMATION Ascending aortic root aneurysm SPECIMEN PROCESSING A - Labeled/Fixative: Aortic valve, fresh. Quantity/Size: Fragments, 2.7 x 2.5 x 0.5 cm. Tissue Description: Aggregate of markedly fragmented pink-white fibromembranous tissues and calcific debris. No intact cusps are identified. Sections/Processin g: Blocks submitted for decalcification: A1. Automotive Repair Technician sections in 1 cassette labeled A1. B - Labeled/Fixative: Ascending aorta, fresh. Quantity/Size: Fragments, 7.0 x 5.3 x 2.0 cm. Tissue Description: Pliable yellow vascular tissues and 2 valve cusps measuring 3.5 x 1.4 x 0.4 cm and 5.0 x 2.5 x 1.2 cm. Both valve cusps show extensive nodular calcifications. Sections/Processin g: Blocks submitted for decalcification: B2. Automotive Repair Technician sections in 2 cassettes as follows: ?B1: ??Vascular tissue ?B2: ??Valve cusps ??ajw 09/23/2022 10:[address] [facility] AORTIC STRUCTURE / Unknown 09/18/2022 1:56 PM EDT 09/18/2022 1:56 PM EDT AORTIC STRUCTURE / Unknown 09/18/2022 1:56 PM EDT 09/18/2022 1:56 PM EDT Mono Chavarria MD PATHOLOGY/CYTOLOGY ORDERABLES [facility] [place] [address] [facility] [place] [address] * (ABNORMAL) BLOOD GAS 2 ARTERIAL (09/18/2022 1:47 PM EDT) pH, Arterial 7.33(L) 7.35 - 7.45 [facility] PCO2, Arterial 43 35 - 45 mmHg [facility] PO2, Arterial 568(H) 85 - 104 mmHg [facility] Bicarbonate, Arterial 22.3 20.0 - 26.0 mmol/L [facility] Base Excess, Arterial -3.6(L) -3.0 - 3.0 mmol/L [facility] Hgb Blood Gas 12.3(L) 13.7 - 16.5 g/dL [facility] Oxyhemoglobin, Arterial 98.8(H) 94.0 - 97.0 % [facility] Carboxyhemoglob in, Arterial 0.5 % [facility] Comment: Nonsmokers: 0.5-1.5% COHB Smokers: Variable, but usually less than 10% Toxic: 20-30% COHB Lethal: Greater than 60% COHB Methemoglobin, Arterial 0.3 <=1.5 % [facility] Na Whole Blood 132(L) 135 - 145 mmol/L [facility] K Whole Blood 4.8 3.5 - 5.0 mmol/L [facility] Comment: Please note: Patients with WBC >100,000 may have falsely elevated Potassium levels. Contact the Clinical Chemistry Laboratory if there are any questions. ICa Whole Blood 1.01(L) 1.15 - 1.33 mmol/L [facility] Comment: Note: ??Total bilirubin higher than 20 mg/dL may lead to falsely low ionized calcium. CL Whole Blood 103 98 - 107 mmol/L [facility] Gluc Whole Bld 94 65 - 199 mg/dL [facility] Comment:Diabetes: >=200 mg/d L plus symptoms. Lactate WB 1.3 0.5 - 2.2 mmol/L [facility] Blood 09/18/2022 1:47 PM EDT 09/18/2022 1:47 PM EDT Mono Chavarria MD POINT OF CARE TEST ORDERABLES Performing Organization Address City/[facility] Co de Phone Number [facility] [place] [address] * (ABNORMAL) BLOOD GAS 2 VENOUS (09/18/2022 1:47 PM EDT) pH, Venous 7.31(L) 7.32 - 7.42 [facility] PCO2, Venous 48 41 - 51 mmHg [facility] PO2, Venous 52(H) 25 - 40 mmHg [facility] Bicarbonate, Venous 23.4 mmol/L [facility] Base Excess, Venous -2.9 mmol/L [facility] Hgb Blood Gas 12.5(L) 13.7 - 16.5 g/dL [facility] Oxyhemoglobin, Venous 84.8 % [facility] Carboxyhemoglob in, Venous 0.5 % [facility] Comment: Nonsmokers: 0.5-1.5% COHB Smokers: Variable, but usually less than 10% Toxic: 20-30% COHB Lethal: Greater than 60% COHB Methemoglobin, Venous 0.3 <=1.5 % [facility] Na Whole Blood 137 135 - 145 mmol/L [facility] K Whole Blood 4.3 3.5 - 5.0 mmol/L [facility] Comment: Please note: Patients with WBC >100,000 may have falsely elevated Potassium levels. Contact the Clinical Chemistry Laboratory if there are any questions. ICa Whole Blood 1.00(L) 1.15 - 1.33 mmol/L [facility] Comment: Note: ??Total bilirubin higher than 20 mg/dL may lead to falsely low ionized calcium. CL Whole Blood 105 98 - 107 mmol/L [facility] Gluc Whole Bld 93 65 - 199 mg/dL [facility] Comment:Diabetes: >=200 mg/d L plus symptoms Lactate WB 1.1 0.5 - 2.2 mmol/L [facility] Blood Gas Source Venous [facility] Blood 09/18/2022 1:47 PM EDT 09/18/2022 1:47 PM EDT Mono Chavarria MD POINT OF CARE TEST ORDERABLES [facility] [place] [place] [address] * (ABNORMAL) BLOOD GAS 2 ARTERIAL (09/18/2022 12:42 PM EDT) pH, Arterial 7.38 7.35 - 7.45 [facility] PCO2, Arterial 43 35 - 45 mmHg [facility] PO2, Arterial 256(H) 85 - 104 mmHg [facility] Bicarbonate, Arterial 24.9 20.0 - 26.0 mmol/L [facility] Base Excess, Arterial -0.1 -3.0 - 3.0 mmol/L [facility] Hgb Blood Gas 15.4 13.7 - 16.5 g/dL [facility] Oxyhemoglobin, Arterial 98.2(H) 94.0 - 97.0 % [facility] Carboxyhemoglob in, Arterial 1.0 % [facility] Comment: Nonsmokers: 0.5-1.5% COHB Smokers: Variable, but usually less than 10% Toxic: 20-30% COHB Lethal: Greater than 60% COHB Methemoglobin, Arterial 0.3 <=1.5 % [facility] Na Whole Blood 140 135 - 145 mmol/L [facility] K Whole Blood 4.3 3.5 - 5.0 mmol/L [facility] Comment: Please note: Patients with WBC >100,000 may have falsely elevated Potassium levels. Contact the Clinical Chemistry Laboratory if there are any questions. ICa Whole Blood 1.19 1.15 - 1.33 mmol/L [facility] Comment: Note: ??Total bilirubin higher than 20 mg/dL may lead to falsely low ionized calcium. CL Whole Blood 105 98 - 107 mmol/L [facility] Gluc Whole Bld 94 65 - 199 mg/dL [facility] Comment:Diabetes: >=200 mg/d L plus symptoms. Lactate WB 1.5 0.5 - 2.2 mmol/L [facility] FIO2 Art 80 % [facility] [facility] PF Ratio Art 320 [facility] Blood 09/18/2022 12:4 2 PM EDT 09/18/2022 12:42 PM EDT Mono Chavarria MD POINT OF CARE TEST ORDERABLES [facility] [place] [address] * Transesophageal Echo/OR (09/18/2022 11:39 AM EDT) Anatomical Region Laterality Modality Cardiac Other 09/18/2022 11:3 9 AM EDT Narrative 09/18/2022 5:08 PM EDT ? Version: 1 Name: ADDIS BRIDGES Linsey ? Study Date: 09/18/2022, 11: 39 [...] Findings Post Procedure Findings Reading Physician ?Madelaine Hardin MD ?? 09/18/2022, 5: 08 PM Ordering Physician: MONO CHAVARRIA Referring Physician: ULISES MONTERO Procedure Note Madelaine Hardin MD - 09/18/2022 Version: 1 Name: ADDIS [...] Findings Post Procedure Findings Reading Physician Madelaine Hardin MD 09/18/2022, 5: 08 PM Ordering Physician: MONO CHAVARRIA Referring Physician: ULISES MONTERO Mono Chavarria MD ECHO ORDERABLES * Prepare RBC (09/18/2022 11:15 AM EDT) Dispensed? Yes [facility] Blood 09/18/2022 11:1 5 AM EDT 09/18/2022 11:12 AM EDT Mono Chavarria MD BLOOD BANK PRODUCT ORDERABLES [facility] [place] [address] * SCAN DOC: IMPLANTABLE DEVICES (09/18/2022 12:00 AM EDT) Narrative 09/18/2022 12:00 AM EDT Ordered by an unspecified provider. Scanning Provider MEDIA MGR SCAN EXT O RDR/RSLT * SCAN DOC: LAB (09/18/2022 12:00 AM EDT) Narrative 09/18/2022 12:00 AM EDT Ordered by an unspecified provider. Scanning Provider MEDIA MGR SCAN EXT O RDR/RSLT documented in this encounter Visit Diagnoses Not on filedocumented in this encounter Admitting Diagnoses Diagnosis CAD (coronary artery disease) Coronary atherosclerosis of unspecified type of vessel, [place] or graft documented in this encounter Administered Medications Inactive Administered Medications - up to 3 most recent administrations Medication Order MAR Action Action Date Dose Rate Site acetaminophen (Tylenol) tablet 1,000 mg 1,000 mg, Oral, EVERY 6 HOURS SCHEDULED, First dose on Thu09/19/22 at 1800, Until Discontinued, For pain when taking by mouth. Maximum dose of acetaminophen is 4,000 mg from all sources in 24 hours. When ordered for pain, acetaminophen should be given even when other ordered pain medications are indicated., Routine Given 09/27/2022 5:09 AM EDT 1,000 mg Given 09/27/2022 12:12 AM EDT 1,000 mg Given 09/26/2022 5:05 PM EDT 1,000 mg AMIOdarone (Pacerone) tablet 200 mg 200 mg, [...] If unable to take PO, may give CA, Routine Given 09/27/2022 8:58 AM EDT 81 [...] Given 09/24/2022 5:38 PM EDT 40 mg buPROPion SR (Wellbutrin SR) tablet 150 mg 150 mg, Oral, 2 TIMES DAILY, First dose on Thu09/19/22 at 0900, Until Discontinued, DO NOT CRUSH OR OPEN, Routine Given 09/27/2022 8:58 AM EDT 150 mg Given 09/26/2022 8:49 PM EDT 150 mg Given 09/26/2022 9:41 AM EDT 150 mg calcium chloride 10% (100 mg/mL) injection ONCE PRN, Starting on Chelo 09/18/22 at 1509, Until Chelo 09/18/22 at 1747, Intra-Operative (Intra-Procedure), Routine Given 09/18/2022 3:09 PM EDT 0.5 g cardioplegic solution ([place] Formula) 31 meq/1052.8 mL (potassium) solution ONCE PRN, Starting on Chelo 09/18/22 at 1350, Until Chelo 09/18/22 at 1747, Intra-Operative (Intra-Procedure) Given 09/18/2022 1:50 PM EDT 1,077 mLs electrolyte replacement solution (pH 7.4) (Normosol-R, Plasmalyte-A) infusion CONTINUOUS PRN, Starting on Chelo 09/18/22 at 1231, Until Chelo 09/18/22 at 1231, Intra-Operative (Intra-Procedure) New Bag 09/18/2022 12:31 PM EDT 2 L furosemide (Lasix) (10 mg/mL) injection 20 mg 20 mg, Intravenous, 2 TIMES DAILY, First dose on Thu09/19/22 at 0945, Until Discontinued Given 09/27/2022 8:59 AM EDT 20 mg Given 09/26/2022 5:05 PM EDT 20 mg Given 09/26/2022 9:41 AM EDT 20 mg gentamicin (Garamycin) injection ONCE PRN, Starting on Chelo 09/18/22 at 1324, Until Chelo 09/18/22 at 1747, Intra-Operative (Intra-Procedure), Routine Given 09/18/2022 1:24 PM EDT 160 mg 19- Surgical Site guaiFENesin ER (Mucinex) tablet 600 mg 600 mg, Oral, 2 TIMES DAILY, First dose on Thu09/22/22 at 0800, Until Discontinued, DO NOT CRUSH OR OPEN, Routine Given 09/26/2022 8:49 PM EDT 600 mg Given 09/26/2022 9:41 AM EDT 600 mg Given 09/25/2022 8:17 PM EDT 600 mg heparin (porcine) (1,000 units/mL) injection ONCE PRN, Starting on Chelo 09/18/22 at 1231, Until Chelo 09/18/22 at 1747, Intra-Operative (Intra-Procedure), Routine Given 09/18/2022 2:55 PM EDT 10,000 Units Given 09/18/2022 2:42 PM EDT 5,000 Units Given 09/18/2022 2:19 PM EDT 5,000 Units hydrALAZINE (Apresoline) (20 mg/mL) injection 10 mg [...] on Thu09/25/22 at 0915, Until Discontinued, Routine Given 09/27/2022 8:58 AM EDT 25 mg Given 09/26/2022 9:41 AM EDT 25 mg Given 09/25/2022 9:15 AM EDT 25 mg mannitoL (Osmitrol) 20 % infusion CONTINUOUS PRN, Starting on Thu09/18/22 at 1350, Until Thu09/18/22 at 1350, Intra-Operative (Intra-Procedure) New Bag 09/18/2022 1:50 PM EDT 50 g melatonin tablet 6 mg 6 mg, Oral, NIGHTLY PRN, Starting on 09/21/22 at 2307, Until 09/27/22 at 1529, sleep, Routine Given 09/26/2022 8:49 PM EDT 6 mg Given 09/25/2022 8:17 PM EDT 6 mg Given 09/25/2022 1:33 AM EDT 6 mg metoproloL tartrate (Lopressor) tablet 25 mg [...] Verify nicotine 14 mg/24 hr patch. nitroGLYcerin 100 mcg/mL intracoronary dilution ONCE PRN, Starting on Thu09/18/22 at 1326, Until Thu09/18/22 at 1747, Intra-Operative (Intra-Procedure), Routine Given 09/18/2022 1:26 PM EDT 400 mcg 19- Surgical Site oxyCODONE (Roxicodone) tablet 5-10 mg 5-10 mg, Oral, EVERY 4 HOURS PRN, Starting on Thu09/18/22 at 1822, Until Thu09/27/22 at 1529, Pain, - When tolerating oral medications. - Initial dose 5 mg. - If pain control not adequate in 60 minutes, give additional 5 mg., Routine Given 09/22/2022 5:01 PM EDT 10 mg Given 09/22/2022 12:53 PM EDT 10 mg Given 09/22/2022 8:44 AM EDT 10 mg pantoprazole EC (Protonix) tablet 40 mg [...] Given 09/23/2022 9:13 AM EDT 17 g senna-docusate (Pericolace) 8.6-50 mg per tablet 2 tablet 2 tablet, Oral, 2 TIMES DAILY, First dose (after last modification) on Thu09/23/22 at 1445, Until Discontinued, Post-op day 1, Routine Given 09/26/2022 9:43 AM EDT 2 tablets Given 09/25/2022 8:17 PM EDT 2 tablets Given 09/24/2022 8:27 AM EDT 2 tablets sodium bicarbonate 8.4 % (1 meq/ml) IV solution ONCE PRN, Starting on Chelo 09/18/22 at 1357, Until Chelo 09/18/22 at 1747, Intra-Operative (Intra-Procedure), Routine Given 09/18/2022 1:57 PM EDT 25 mEq sodium chloride 0.9 % (flush) (BD PosiFlush Normal Saline 0.9) flush 5 mL 5 mL, Intravenous, EVERY 8 HOURS, First dose on Thu09/19/22 at 1345, Until Discontinued, Routine Given 09/27/2022 4:54 AM EDT 5 mLs Given 09/26/2022 8:49 PM EDT 5 mLs Given 09/26/2022 1:01 PM EDT 5 mLs spironolactone (Aldactone) tablet 25 mg 25 mg, Oral, DAILY, First dose (after last modification) on Thu09/23/22 at 0915, Until Discontinued, DO NOT SPLIT, CRUSH OR OPEN, Routine Given 09/27/2022 8:58 AM EDT 25 mg Given 09/26/2022 9:41 AM EDT 25 mg Given 09/25/2022 10:21 AM EDT 25 mg vancomycin (Vancocin) injection ONCE PRN, Starting on Chelo 09/18/22 at 1323, Until Thu09/18/22 at 1747, Intra-Operative (Intra-Procedure), Routine Given 09/18/2022 1:23 PM EDT 1 g 19- Surgical Site warfarin (COUMADIN) daily order reminder Oral, EVERY 24 HOURS, First dose on Thu09/25/22 at 1400, Until Discontinued, If the daily warfarin order has not been placed, contact the Provider to confirm that the order will be written, the dose is held or discontinued., Treatment Plan: New Start, Indication for Anticoagulation: Atrial Fibrillation, INR Goal Range: 2-3, Anticipated Duration of Therapy: Indefinite documented in this encounter Active and Recently [...] RN)0650 (Given - Provider: Aniceto Saldana II, RN)1300 (Given - Provider: Marli Gross RN)1705 (Given - Provider: Marli Gross, XI) 0012 (Given - Provider: Aniceto Saldana II, RN)0509 (Given - Provider: Aniceto Saldana II, RN)1200 (Due) AMIOdarone (Pacerone) tablet 200 mg 200 mg, Oral, 2 TIMES DAILY, First dose on Thu09/23/22 at 0900, Until Discontinued, Routine 1021 (Given - Provider: Chepe Harris RN)2016 (Given - Provider: Aniceto Saldana II, RN) 0940 (Given - Provider: Marli Gross RN)2048 (Given - Provider: Aniceto Saldana II, RN) 0858 (Given - Provider: Oksana Patricia, XI) aspirin chewable tablet 81 mg(Linked Group 2) 81 mg, Oral, DAILY, First dose on Thu09/19/22 at 0900, Until Discontinued, Start on Post-Op Day 1 in the AM, If unable to take PO, may give CA, Routine 1021 (Given - Provider: Chepe Harris RN) 0940 (Given - Provider: Marli Gross, XI) 0858 (Given - Provider: Oksana Patricia, XI) atorvastatin (Lipitor) tablet 40 mg 40 mg, Oral, EVERY EVENING, First dose (after last modification) on Thu09/24/22 at 1700, Until Discontinued, Routine 1633 (Given - Provider: Chepe Harris RN) 1705 (Given - Provider: Marli Gross RN) buPROPion SR (Wellbutrin SR) tablet 150 mg 150 mg, Oral, 2 TIMES DAILY, First dose on Thu09/19/22 at 0900, Until Discontinued, DO NOT CRUSH OR OPEN, Routine 102 (Given - Provider: Chepe Harris RN)2016 (Given - Provider: Aniceto Saldana II, RN) 0941 (Given - Provider: Marli Gross, XI)2048 (Given - Provider: Aniceto Saldana II, RN) 0858 (Given - Provider: Oksana Patricia RN) furosemide (Lasix) (10 mg/mL) injection 20 mg 20 mg, Intravenous, 2 TIMES DAILY, First dose on Thu09/19/22 at 0945, Until Discontinued 1021 (Given - Provider: Chepe Harris RN)163 (Given - Provider: Chepe Harris RN) 0941 (Given - Provider: Marli Gross, XI)1705 (Given - Provider: Marli Gross RN) 0859 (Given - Provider: Oksana Patricia, XI) guaiFENesin ER (Mucinex) tablet 600 mg 600 mg, Oral, 2 TIMES DAILY, First dose on Thu09/22/22 at 0800, Until Discontinued, DO NOT CRUSH OR OPEN, Routine 102 (Given - Provider: Chepe Harris RN)2016 (Given - Provider: Aniceto Saldana II, RN) 09 (Given - Provider: Marli Gross RN)2048 (Given - Provider: Aniceto Saldana II, RN) 0900 (Not Given - Provider: Oksana Patricia RN - Reason: Patient/family refused) ipratropium-albuteroL (Duoneb) [...] 0023 (Given - Provider: Aniceto Saldana II, RN)045 (Given - Provider: Aniceto Saldana II, RN)0945 (Given - Provider: Marli Gross, XI)1300 (Given - Provider: Marli Gross, XI)1706 (Given - Provider: Marli Gross, XI)2048 (Given - Provider: Aniceto Saldana II, RN) 0012 (Given - Provider: Aniceto Saldana II, XI)0454 (Given - Provider: Aniceto Saldana II, XI)0857 (Given - Provider: Oksana Patricia, XI)1200 (Due) lidocaine (Lidoderm) 5% patch 1 patch 1 patch, Transdermal, Administer over 12 Hours, EVERY 24 HOURS, First dose on Thu09/22/22 at 0800, Until Discontinued, Apply patch(es) for 12 hours, and then remove for 12 hours, Routine 0849 (Patch Applied - Provider: Chepe Harris RN)204 (Patch Removed - Provider: Aniceto Saldana II, [...] Gross, XI) 0858 (Given - Provider: Oksana Patricia, XI) metoproloL tartrate (Lopressor) tablet 25 mg 25 mg, Oral, EVERY 12 HOURS SCHEDULED (2 times per day), First dose (after last modification) on Thu09/24/22 at 0715, Until Discontinued, Hold for HR less than 60 or SBP less than 90, Routine 1021 (Given - Provider: Chepe Harris RN)2017 (Given - Provider: Aniceto Saldana II, RN) 0941 (Given - Provider: Marli Gross RN)2049 (Given - Provider: Aniceto Saldana II, RN) 0858 (Given - Provider: Oksana Patricia RN) nicotine (Nicoderm CQ) 14 mg/24 hr patch [...] RN) 0857 (Patch Removed - Provider: Oksana Patricia RN)0858 (Patch Applied - Provider: Oksana Patricia RN)1329 (Due: Patch Removed - Provider: Automatic Discharge [...] (dose and location) verified - Provider: Oksana Patricia RN) pantoprazole EC (Protonix) tablet 40 mg(Linked Group 4) 40 mg, Oral, DAILY, First dose on Thu09/18/22 at 1915, Until Discontinued, DO NOT CRUSH OR OPEN If unable to take PO, may give IV 1021 (Given - Provider: Chepe Harris RN) 0940 (Given - Provider: Marli Gross, XI) 0858 (Given - Provider: Oksana Patricia, XI) polyethylene glycoL (Miralax) packet 17 g 17 g, Oral, DAILY, First dose on Thu09/23/22 at 0900, Until Discontinued, Routine 0900 (Not Given - Provider: Chepe Harris RN - Reason: Patient/family refused) 0943 (Given - Provider: Marli Gross RN) 0900 (Not Given - Provider: Oksana Patricia, XI - Reason: Patient/family refused) potassium chloride ER [...] II, RN) 0943 (Given - Provider: Marli Gross RN)2100 (Not Given - Provider: Aniceto Saldana II, [...] Saldana II, RN)1301 (Given - Provider: Marli Gross RN)2049 (Given - Provider: Aniceto Saldana II, RN) 0454 (Given - Provider: Aniceto Saldana II, RN) spironolactone (Aldactone) tablet 25 mg 25 mg, Oral, DAILY, First dose (after last modification) on Thu09/23/22 at 0915, Until Discontinued, DO NOT SPLIT, CRUSH OR OPEN, Routine 1021 (Given - Provider: Chepe Harris RN) 0941 (Given - Provider: Marli Gross RN) 0858 (Given - Provider: Oksana Patricia, XI) warfarin (COUMADIN) daily order reminder Oral, EVERY [...] Indefinite 1400 (Dose confirmed - Provider: Chepe Hraris RN) 1400 (Dose confirmed - Provider: Marli Gross RN) warfarin (Coumadin) tablet 5 mg (COMPLETED) 5 mg, Oral, ONCE, 1 dose, On Chelo 09/25/22 at 1700, DO NOT SPLIT, CRUSH OR OPEN, Routine 1633 (Given - Provider: Chepe Harris RN) warfarin (Coumadin) tablet 5 mg (COMPLETED) 5 mg, Oral, ONCE, 1 dose, On 09/26/22 at 1700, DO NOT SPLIT, CRUSH OR OPEN, Routine 1705 (Given - Provider: Marli Gross RN) PRN Medication Order 09/25/2022 09/26/2022 09/27/2022 bisacodyL (Dulcolax) suppository 10 mg 10 mg, Rectal, DAILY PRN, Starting on 09/21/22 at 0000, Until 09/27/22 at 1529, Constipation, Starting post-op day 3., Routine hydrALAZINE (Apresoline) (20 mg/mL) injection 10 mg 10 mg, Intravenous, EVERY 2 HOURS PRN, Starting on 09/19/22 at 0100, Until 09/27/22 at 1529, High [...] sleep, Routine 0133 (Given - Provider: Edward Cavanaugh RN)2016 (Given - Provider: Aniceto Saldana II, RN) 2048 (Given - Provider: Aniceto Saldana II, RN) ondansetron (pf) (Zofran) (2 mg/mL) injection 4 [...] If unable to take PO, may give CA, Routine Or aspirin suppository 300 mg (CANCELED) 300 mg, Rectal, DAILY, First dose on Thu09/19/22 at 0900, Until Discontinued, Start on Post-Op Day 1 in the AM. Give CA if unable to take PO, Routine Group [...] Routine documented in this encounter Care Teams Dental Assistant Medical Assistant Relationship Specialty Start Date End Date Ulises Montero MD PCP - General Family Medicine 09/02/22 documented as of this encounter
--- OUTSIDE RECORDS SUMMARY | 2024-02-25 10:39 | XMS_ITS | Encounter Summary ---
Author Organization [facility] Address [facility] [place] [address] Care Team Providers Care Cashier Ticket Selling Name Role Phone Tono Montero MD Primary Care Provider [phone] Encounter Details Date Type Department Care Team (Late st Contact Info) Description 09/02/2022 Telephone Cardiology at [address] [id number] Pedro Andrea MD [facility] [place] [address] Social History Tobacco Use Types Packs/Day Years Used Date Smoking Tobacco: Never Assessed Sex and Gender Information Value Date Recorded Sex Assigned at Male 12/27/2022 9:49 AM EDT Gender Identity Male 12/27/2022 9:49 AM EDT Sexual Orientation Straight 12/27/2022 9: 49 AM EDT documented as of this encounter Miscellaneous Notes * Telephone Encounter - Pedro Andrea MD - 09/02/2022 6:41 AM EDT Images from the original note were not included. 09/02/2022 Conner Donnelly Initial Contact Date: 09/02/2022 Initial contact time: 6:41 AM Referring Provider: Dr. Parsons Patient Location: [facility] Past Medical History: JOSEPH HTN Aortic stenosis Smoker Presenting Symptoms per OSH: 62M with history as above who presented to [facility] with chest pain. - He has generally been feeling unwell but for the last several days, he notes that he has been feeling particularly off. He has had R sided chest tightness that is always present. He notes non-exertional symptoms. - EKG non-ischemic - hsTrop 115 (ULN 60) - proBNP 2300 - Bedside TTE by Dr. Parsons - LVEF maybe 20-30%? Newly decreased from 2021, when it was normal. - Per the echo report in 2021, he had a normal LVEF, moderate to severe - mean gradient 35 (unclear if bicusp) Pertinent Diagnostic Findings: HR 59, 95% on RA, 141/47 - hsTrop 115 (ULN 60) - proBNP 2300 Plan: - I am concerned that his presentation reflects a worsening in the setting of his likely bicuspid aortic valve. This could also reflect a type I NSTEMI, though I am not as convinced that this is the case. Either way, I have asked them to heparinize him - hold off on P2Y12 as I think he will likely be a CABG/AVR at some point - and transfer him to [facility] for further workup. [facility] Above recommendations were based on my discussion with Dr. Parsons; I have not personally interviewed or examined this patient. Advised to call the transfer center back with any changes in the patient condition. Pedro Andrea PGY6 Cardiology [id number] documented in this encounter Plan of Treatment Not on file documented as of this encounter Visit Diagnoses Not on filedocumented in this encounter Care Teams Cashier Ticket Selling Relationship Specialty Start Date End Date Tono Montero MD PCP - General Family Medicine 09/02/22 documented as of this encounter
--- OUTSIDE RECORDS SUMMARY | 2024-02-25 10:39 | XMS_ITS | Encounter Summary ---
[facility] [place] [address] Care Team Providers Care Dishing Machine Operator Name Role Phone Tono Montero MD Primary Care Provider [phone] Encounter Details Date Type Department Care Team (Latest Contact Info) Description 09/09/2022 Travel Social History Tobacco Use Types Packs/Day Years Used Date Smoking Tobacco: Former Cigarettes 1 45 0 08/23/1977 - 08/23/2022 e-Cigarettes Smokeless Tobacco: Never Alcohol Use Standard Drinks/Week Comments Yes 0 (1 standard drink = 0.6 oz pur e alcohol) No ETOH since 4.06.02 Sex and Gender Information Value Date Recorded Sex Assigned at Male 12/27/2022 9:49 AM EDT Gender Identity Male 12/27/2022 9:49 AM EDT Sexual Orientation Straight 12/27/2022 9: 49 AM EDT documented as of this encounter Plan of Treatment Not on file documented as of this encounter Visit Diagnoses Not on filedocumented in this encounter Care Teams Dishing Machine Operator Relationship Specialty Start Date End Date Tono Montero MD PCP - General Family Medicine 09/02/22 documented as of this encounter
--- OUTSIDE RECORDS SUMMARY | 2024-02-25 10:39 | XMS_ITS | Encounter Summary ---
Author Organization [facility] [place] [address] Care Team Providers Care Electronics Assembler And Tester Name Role Phone Tono Montero MD Primary Care Provider [phone] Encounter Details Date Type Department Care Team (Latest Contact Info) Description 09/06/2022 Travel Social History Tobacco Use Types Packs/Day [...] on filedocumented in this encounter Care Teams Electronics Assembler And Tester Relationship Specialty Start Date End Date Tono Montero MD PCP - General Family Medicine 09/02/22 documented as of this encounter
--- OUTSIDE RECORDS SUMMARY | 2024-02-25 10:39 | XMS_ITS | Encounter Summary ---
[place] [address] Care Team Providers Care Edm Operator Name Role Phone Tono Montero MD Primary Care Provider [phone] Encounter Details Date Type Department Care Team (Late st Contact Info) Description 09/09/2022 12:00 PM EDT Office [place] [address] Mono Chavarria MD Aortic valve stenosis, etiology of cardiac valve disease unspecified Social History Tobacco Use Types Packs/Day Years Used Date Smoking Tobacco: Former Cigarettes 1 45 0 08/23/1977 - 08/23/2022 e-Cigarettes Smokeless Tobacco: Never Alcohol Use Standard Drinks/Week Comments Yes 0 (1 standard drink = 0.6 oz pur e alcohol) No ETOH since .06.02 Sex and Gender Information Value Date Recorded Sex Assigned at Male 12/27/2022 9:49 AM EDT Gender Identity Male 12/27/2022 9:49 AM EDT Sexual Orientation Straight 12/27/2022 9: 49 AM EDT documented as of this encounter Last Filed Vital Signs Vital Sign Reading Time Taken Comments Blood Pressure 132/86 09/09/2022 12:14 PM EDT Pulse 51 09/09/2022 12:14 PM EDT Temperature - - Respiratory Rate - - Oxygen Saturation 98% 09/09/2022 12: 14 PM EDT Inhaled Oxygen Concentration - - Weight 99.9 kg (220 lb 4.8 oz) 09/09/2022 12:14 PM EDT Height 170.2 cm (5' 7) 09/09/2022 12:1 4 PM EDT patient reported Body Mass Index 34.5 09/09/2022 12:14 PM EDT documented in this encounter Progress Notes * Mono Chavarria MD - 09/09/2022 12:00 PM EDT Pt seen as in pt consult As severe (bicuspid with moderate size root) also CAD Here with symptoms managed right now We have discussed risks and benefits Plan will be for surgery in next 2 weeks documented in this encounter Plan of Treatment Not on file documented as of this encounter Procedures Procedure Name Priority Date/Time Associated Diagnosis Comments TYPE AND SCREEN VALIDITY Routine 09/09/2022 1:18 PM EDT ABORH RECHECK STATUS Routine 09/09/2022 1:18 PM EDT HEMOGRAM Routine 09/09/2022 1:18 PM EDT Aortic valve stenosis, etiology of cardiac valve disease unspecified DIFFERENTIAL, AUTOMATED Routine 09/09/2022 1:18 PM EDT Aortic valve stenosis, etiology of cardiac valve disease unspecified TYPE AND SCREEN, SDP (FUTURE SURGERY, [facility] SAME DAY PROGRAM ONLY) Routine 09/09/2022 1:18 PM EDT Aortic valve stenosis, etiology of cardiac valve disease unspecified ABO/RH TYPING Routine 09/09/2022 1:18 PM EDT Aortic valve stenosis, etiology of cardiac valve disease unspecified HC CBC,PLT & AUTO DIFF Routine 09/09/2022 1:18 PM EDT Aortic valve stenosis, etiology of cardiac valve disease unspecified ANTIBODY SCREEN Routine 09/09/2022 1:18 PM EDT Aortic valve stenosis, etiology of cardiac valve disease unspecified BASIC METABOLIC PANEL Routine 09/09/2022 1:18 PM EDT Aortic valve stenosis, etiology of [...] who have questions please contact the health health care attorney that requested your imaging first. ? Electronically signed by: Xuan Diamond MD, [facility] ([phone]), at 09/09/2022 7:36 PM Narrative 09/09/2022 7:36 [...] patients who have questions please contactthe health health care attorney that requested your imaging first. Electronically signed by: Xuan Diamond MD, [facility] ([phone]), at 09/09/2022 7:36 PM Mono Chavarria MD IMG DX ORDERABLES * Type and Screen Validity (09/09/2022 1:18 PM EDT) T&S only valid at [facility] Comment:This Type and Screen result is only valid at the [facility] Blood 09/09/2022 1:18 PM EDT 09/09/2022 1:19 PM EDT Narrative Resulting Agency Comment Spec In Lab Mono Chavarria MD BLOOD BANK LAB ORDLinsey OSORIOANA Performing Organization Address [facility]/ZIP Co de Phone Number [facility] [place] [address] * ABORH Recheck Status (09/09/2022 1:18 PM EDT) Pathologist [facility] ABORH Recheck Order Order Placed [facility] ABORH Type Recheck Complete [facility] Blood 09/09/2022 1:18 PM EDT 09/09/2022 1:19 PM EDT Narrative Resulting Agency Comment Spec In Lab Mono Chavarria MD BLOOD BANK LAB ORDLinsey OSORIOANA Performing Organization Address City/[facility]/ZIP Co de Phone Number [facility] [place] [address] * (ABNORMAL) Differential, Automated (09/09/2022 1:18 PM EDT) Neutrophil % 53.5 % [facility] Neutrophil Absolute 5.03 1.70 - 6.10 x10(3)/mc L [facility] Lymph % 31.2 % [facility] Lymphocytes Abs 2.9 0.9 - 3.2 x10(3)/mc L [facility] Monocyte % 10.2 % [facility] Monocyte Abs 1.0(H) 0.3 - 0.9 x10(3)/mc L [facility] Eos % 3.8 % [facility] Eosinophils Abs 0.4 0.0 - 0.4 x10(3)/mc L [facility] Basophil % 0.9 % [facility] Baso Absolute 0.1 0.0 - 0.1 x10(3)/mc L [facility] Immature Gran % 0.40 % [facility] Comment: Immature granulocytes(IG's)percentage and absolute count will include metamyelocytes, myelocytes, and promyelocytes. Blood smears from CBCs yielding IG's will be scanned manually for concordance. If this scan disagrees with the automated IG or if promyelocytes are noted, a manual differential will be performed. Immature Gran Absolute 0.04 0.00 - 0.04 x10(3)/mc L [facility] Blood 09/09/2022 1:18 PM EDT 09/09/2022 1:41 PM EDT Narrative Resulting Agency Comment Spec In Lab Mono Chavarria MD HEMATOLOGY ORDERABL ES Performing Organization Address City/State/[facility] Co de Phone Number [facility] [place] [place] [address] * (ABNORMAL) Hemogram (09/09/2022 1:18 PM EDT) White Blood Cell 9.4 4.0 - 9.5 x10(3)/mc L [facility] Red Blood Cell 5.28 4.58 - 5.54 x10(6)/mc L [facility] Hemoglobin 16.1 13.7 - 16.5 g/dL [facility] Hematocrit 49.1(H) 40.5 - 48.5 % [facility] Mean Cell Volume 93.0 82.9 - 93.1 fL [facility] Mean Cell Hemoglobin 30.5 27.5 - 32.1 pg [facility] Mean Cell Hemoglobin Concentration 32.8 32.0 - 35.7 g/dL [facility] Platelet 192 145 - 357 x10(3)/mc L [facility] RDW Standard Deviation 42.9 36.0 - 45.0 fL [facility] RDW coefficient of variation 12.5 11.4 - 13.8 % [facility] Mean Platelet Volume 10.4 7.6 - 12.9 fL [facility] NRBC% auto 0.0 % [facility] NRBC Absolute 0.000 0.000 - 0.000 x10(3)/mc L [facility] Blood 09/09/2022 1:18 PM EDT 09/09/2022 1:41 PM EDT Narrative Resulting Agency Comment Spec In Lab Mono Chavarria MD HEMATOLOGY ORDERABL ES Performing Organization Address [facility] Co de Phone Number [facility] [place] [address] * Antibody screen (09/09/2022 1:18 PM EDT) Ab Screen Interp Negative [facility] Expires at [id number] on: 09/21/2022 [facility] Comment: Corrected from 10/06/22 0:00:00 EDT [Unknown] on 09/16/22 12:49:41 EDT by Nika Marti Corrected from 10/24/22 0:00:00 EDT [Unknown] on 09/12/22 13:11:18 EDT by Nika Marti Blood 09/09/2022 1:18 PM EDT 09/09/2022 1:19 PM EDT Narrative Resulting Agency Comment Spec In Lab Mono Chavarria MD BLOOD BANK LAB ORDE CIERRA Performing Organization Address [facility] Co de Phone Number [facility] [place] [address] * ABO/Rh Typing (09/09/2022 1:18 PM EDT) ABORH Type A Pos [facility] Blood 09/09/2022 1:18 PM EDT 09/09/2022 1:19 PM EDT Narrative Resulting Agency Comment Spec In Lab Mono Chavarria MD BLOOD BANK LAB ORDE CIERRA Performing Organization Address [facility]/ZIP Co de Phone Number [facility] [place] [place] [address] * (ABNORMAL) Basic Metabolic Panel (non-fasting) (09/09/2022 1:18 PM EDT) Glucose 81 65 - 199 mg/dL [facility] Comment:Diabetes: >=200 mg/d L plus symptoms Blood Urea Nitrogen 22(H) 10 - 20 mg/dL [facility] Creatinine 0.95 0.80 - 1.50 mg/dL [facility] Sodium 141 135 - 145 mmol/L [facility] Potassium 4.5 3.5 - 5.0 mmol/L [facility] Comment: Please note: ??Patients with WBC >100,000 may have falsely elevated Potassium levels. ??For accurate Potassium quantification in these patients send serum separator tube (gold top) for subsequent determinations. ??Contact the Clinical Chemistry Laboratory if there are any questions. Chloride 104 98 - 107 mmol/L [facility] Carbon Dioxide 24 22 - 31 mmol/L [facility] Anion Gap 13 5 - 15 mmol/L [facility] Calcium 9.3 8.5 - 10.5 mg/dL [facility] Est Glomerular Filtration Rate 92 >=60 mL/min/1. 73 m?? [facility] Comment: This patient's estimated GFR was [...] and symptoms in addition to eGFR. Blood 09/09/2022 1:18 PM EDT 09/09/2022 1:41 PM EDT Narrative Resulting Agency Comment Spec In Lab Mono Chavarria MD CHEMISTRY ORDERABLE S Performing Organization Address [facility]/ZIP Co de Phone Number [facility] [place] [place] [address] documented in this encounter Visit Diagnoses Diagnosis Aortic valve stenosis, etiology of cardiac valve disease unspecified Aortic valve stenosis, etiology of cardiac valve disease unspecified documented in this encounter Care Teams Edm Operator Relationship Specialty Start Date End Date Tono Montero MD PCP - General Family Medicine 09/02/22 documented as of this encounter
--- OUTSIDE RECORDS SUMMARY | 2024-02-25 10:40 | XMS_ITS | Encounter Summary ---
Author Organization [facility] Address [address] [place] [address] Care Team Providers Care Configuration Consultant Name Role Phone Unknown, Provider Primary Care Provider [phone] Tono Montero MD Primary Care Provider [phone] Encounter Details Date Type Department Care Team (Late st Contact Info) Description 10/02/2020 Lab Requisition [facility] Pathology & Laboratory Medicine - [address] [address] Outr Resulting Lab, Provider Social History Tobacco Use Types Packs/Day Years Used Date Smoking Tobacco: Never Assessed Sex and Gender Information Value Date Recorded Sex Assigned at Not on file Gender Identity Male 12/06/2020 17:45 EDT Sexual Orientation Not on file documented as of this encounter Plan of Treatment Not on file documented as of this encounter Procedures Procedure Name Priority Date/Time Associated Diagnosis Comments LYME AB Routine 10/01/2020 18:00 EDT documented in this encounter Results * LYME AB (10/01/2020 18:00 EDT) Lyme Ab Negative Negative 10/03/2020 12:28 EDT [facility] Comment:New 3rd generation a ssay in use 10/19/2019 Blood VENOUS BLOOD / Unknown 10/01/2020 18:00 EDT 10/02/2020 15:54 EDT Provider Outr Resulting Lab IMMUNOLOGY A ND SEROLOGY ORDERABLES [facility] [address] [place] [address] documented in this encounter Visit Diagnoses Not on filedocumented in this encounter Care Teams Configuration Consultant Relationship Specialty Start Date End Date Unknown, Provider, PCP - General 03/17/15 12/05/20 Tono Montero MD [facility] [place] [place] [address] PCP - General 12/06/20 documented as of this encounter
--- OUTSIDE RECORDS SUMMARY | 2024-02-25 10:40 | XMS_ITS | Encounter Summary ---
Author Organization [facility] Address [address] [place] [address] Care Team Providers Care Legal Assistant Name Role Phone Tono Montero MD Primary Care Provider [phone] Encounter Details Date Type Department Care Team (Latest Contact Info) Description 12/11/2020 Travel Social History Tobacco Use Types Packs/Day Years Used Date Smoking Tobacco: Never Assessed Sex and Gender Information Value Date Recorded Sex Assigned at Not on file Gender Identity Male 12/06/2020 17:45 EDT Sexual Orientation Not on file COVID-19 Exposure Response Date Recorded In the last month, have you been in contact with someone who was confirmed or suspected to have Coronavirus / COVID-19? No / Unsure 12/11/2020 7:57 EDT documented as of this encounter Plan of Treatment Not on file documented as of this encounter Visit Diagnoses Not on filedocumented in this encounter Care Teams Legal Assistant Relationship Specialty Start Date End Date Tono Montero [place] [address] [place] [address] PCP - General 12/06/20 documented as of this encounter
--- OUTSIDE RECORDS SUMMARY | 2024-02-25 10:40 | XMS_ITS | Encounter Summary ---
Author Organization [facility] Address [address] [place] [address] Care Team Providers Care Chaperone Name Role Phone Unknown, Provider Primary Care Provider [phone] Tono Montero MD Primary Care Provider [phone] Encounter Details Date Type Department Care Team (Late st Contact Info) Description 07/12/2019 Lab Requisition [facility] Pathology & Laboratory Medicine - [address] [address] Unknown, Provider, Social History Tobacco Use Types Packs/Day Years Used Date Smoking Tobacco: Never Assessed Sex and Gender Information Value Date Recorded Sex Assigned at Not on file Gender Identity Male 12/06/2020 17:45 EDT Sexual Orientation Not on file documented as of this encounter Plan of Treatment Not on file documented as of this encounter Procedures Procedure Name Priority Date/Time Associated Diagnosis Comments PSA TOTAL, DIAGNOSTIC Routine 07/11/2019 7:55 EST documented in this encounter Results * PSA TOTAL, DIAGNOSTIC (07/11/2019 7:55 EST) PSA 0.4 0.0 - 3.5 ng/mL 07/13/2019 10:18 EST [facility] Blood VENOUS BLOOD / Unknown 07/11/2019 7:55 EST 07/12/2019 16:09 EST Narrative [facility] - 07/13/2019 10:18 EST NOTE: Serum PSA concentration should not be interpreted as absolute evidence for the presence or absence of malignant disease. Assayed on Siemens ADVIA Centaur XPT using chemiluminescent technology.??Values obtained by using different assay methods cannot be used interchangeably. Provider Unknown CHEMISTRY & BLOOD GA S ORDERABLES [facility] [address] [place] [address] documented in this encounter Visit Diagnoses Not on filedocumented in this encounter Care Teams Chaperone Relationship Specialty Start Date End Date Unknown, Provider, PCP - General 03/17/15 12/05/20 Tono Montero MD [facility] [place] [place] [address] PCP - General 12/06/20 documented as of this encounter
--- OUTSIDE RECORDS SUMMARY | 2024-02-25 10:40 | XMS_ITS | Encounter Summary ---
Author Organization [facility] Address [facility] [place] [address] Care Team Providers Care Vp Construction Name Role Phone Cuco Díaz APRN Primary Care Provider + Encounter Details Date Type Department Care Team (Late st Contact Info) Description 06/06/2015 [place] [address] Jesi Malik MD [facility] [place] [address] Social History Tobacco Use Types Packs/Day Years Used Date Smoking Tobacco: Never Assessed Sex and Gender Information Value Date Recorded Sex Assigned at Male 12/27/2022 9:49 AM EDT Gender Identity Male 12/27/2022 9:49 AM EDT Sexual Orientation Straight 12/27/2022 9: 49 AM EDT documented as of this encounter Progress Notes * Jesi Malik MD - 06/06/2015 4:56 PM EST Images from the original note were not included. PRE-PROCEDURE VIR NOTE: Referring Physician: Apolonia Valentino NP [facility] [phone] PCP: CUCO DÍAZ APRN Planned Procedure: CT guided left lung biopsy Procedure Indication: mass Presenting Diagnosis/ Complaint: Conner Donnelly is a 55 y.o. male current smoker (0.5ppd) who presented with pleuritic chest pain. Work up included CT to rule out PE which demonstrated right pleural effusion and left lower lobe nodule. We are consulted for left lower lobe nodule biopsy. Past Medical/Surgical History HTN Possible sleep apnea There is no problem list on file for this patient. No past medical history on file. No past surgical history on file. Medications: Current Outpatient Prescriptions on File Prior to Visit Medication Sig Dispense Refill ??? diclofenac (CATAFLAM) 50 mg tablet 50MG = 1 Tablet(s), PO, Three times daily No current facility-administered medications on file prior to visit. Allergies: Review of patient's allergies indicates not on file. Social History and Habits: History Social History ??? Marital Status: N/A Spouse Name: N/A Number of Children: N/A ??? Years of Education: N/A Occupational History ??? Not on file. Social History Main Topics ??? Smoking status: Not on file ??? Smokeless tobacco: Not on file ??? Alcohol Use: Not on file ??? Drug Use: Not on file ??? Sexual Activity: Not on file Other Topics Concern ??? Not on file Social History Narrative ??? No narrative on file Significant Family History: No family history on file. Physical Exam: Pending Labs: Prior relevant imaging: Assessment/Plan: CT guided left lung biopsy Patient Position: SALVADOREAN Biopsy/drain access site: left lower lobe, approach from left lateral chest to avoid vascular structures. Medications to discontinue (and days): [fish oil x 7d]- discussed with referring clinician Labs: [obtain per CT protocol] General anesthesia required: [no] documented in this encounter Plan of Treatment Not on file documented as of this encounter Visit Diagnoses Not on filedocumented in this encounter Care Teams Vp Construction Relationship Specialty Start Date End Date Cuco Díaz APRN PCP - General 04/02/10 06/17/15 documented as of this encounter
--- OUTSIDE RECORDS SUMMARY | 2024-02-25 10:40 | XMS_ITS | Encounter Summary ---
Author Organization [facility] Address [address] [place] [address] Care Team Providers Care Inseam Leveler Name Role Phone Tono Montero MD Primary Care Provider [phone] Encounter Details Date Type Department Care Team (Late st Contact Info) Description 07/24/2021 Lab Requisition [facility] Pathology & Laboratory Medicine - [address] [address] Outr Resulting Lab, Provider Social History Tobacco [...] Associated Diagnosis Comments PSA TOTAL, DIAGNOSTIC Routine 07/24/2021 7:56 EDT documented in this encounter Results * PSA TOTAL, DIAGNOSTIC (07/24/2021 7:56 EDT) PSA 0.4 0.0 - 3.5 ng/mL 07/25/2021 8:50 EDT [facility] Blood VENOUS BLOOD / Unknown 07/24/2021 7:56 EDT 07/24/2021 21:26 EDT Narrative [facility] - 07/25/2021 8:50 EDT NOTE: Serum PSA concentration should not be interpreted as absolute evidence for the presence or absence of malignant disease. Assayed on Siemens ADVIA Centaur XPT using chemiluminescent technology.??Values obtained by using different assay methods cannot be used interchangeably. Provider Outr Resulting Lab CHEMISTRY & BLOOD GAS ORDERABLES [facility] [address] [place] [address] documented in this encounter Visit Diagnoses Not on filedocumented in this encounter Care Teams Inseam Leveler Relationship Specialty Start Date End Date Tono Montero MD [facility] [place] [address] PCP - General 12/06/20 documented as of this encounter
--- OUTSIDE RECORDS SUMMARY | 2024-02-25 10:40 | XMS_ITS | Encounter Summary ---
Author Organization [facility] Address [facility] [place] [address] Care Team Providers Care Commercial Green Building Architect Name Role Phone Emelyn Mac APRN Primary Care Provider + Encounter Details Date Type Department Care Team (Late st Contact Info) Description 06/06/2015 [place] [address] Jesi Malik MD [facility] [address] Smoking Social History Tobacco Use Types Packs/Day Years Used Date Smoking Tobacco: Never Assessed Sex and Gender Information Value Date Recorded Sex Assigned at Male 12/27/2022 9:49 AM EDT Gender Identity Male 12/27/2022 9:49 AM EDT Sexual Orientation Straight 12/27/2022 9: 49 AM EDT documented as of this encounter Plan of Treatment Not on file documented as of this encounter Visit Diagnoses Diagnosis Smoking Tobacco use disorder documented in this encounter Care Teams Commercial Green Building Architect Relationship Specialty Start Date End Date Emelyn Mac APRN PCP - General 04/02/10 06/17/15 documented as of this encounter
--- OUTSIDE RECORDS SUMMARY | 2024-02-25 10:40 | XMS_ITS | Encounter Summary ---
Author Organization [facility] Address [address] [place] [address] Care Team Providers Care Child Day Care Provider Name Role Phone Unknown, Provider Primary Care Provider [phone] Encounter Details Date Type Department Care Team (Late st Contact Info) Description 11/16/2020 Orders Only [facility] Radiology - [address] [address] Edgar Haas MD [address] [place] [address] [address] [place] [id number] Social History Tobacco Use Types Packs/Day Years Used Date Smoking Tobacco: Never Assessed Sex and Gender Information Value Date Recorded Sex Assigned at Not on file Gender Identity Male 12/06/2020 17:45 EDT Sexual Orientation Not on file documented as of this encounter Plan of Treatment Not on file documented as of this encounter Visit Diagnoses Not on filedocumented in this encounter Care Teams Child Day Care Provider Relationship Specialty Start Date End Date Unknown, Provider, PCP - General 03/17/15 12/05/20 documented as of this encounter
--- OUTSIDE RECORDS SUMMARY | 2024-02-25 10:40 | XMS_ITS | Encounter Summary ---
Author Organization Formerly [facility] [place] [address] Care Team Providers Care Electrical Integrator Name Role Phone ValentinoHelen Lawrence COOPER Primary Care Provider [phone] Reason for Visit * Diagnostic Test (Routine) - Closed Specialty Diagnoses / Procedures Referred By Mounika carr Referred To Contact Radiology Diagnoses Smoking Procedures CT Chest Wo Contrast (GENERIC) CT Guided Lung Biopsy Jesi Malik MD [facility] [place] [address] [facility] [place] [address] Referral ID Status Reason Start Date Expiration Date V isits Requested Visits Authorized [id number] Closed Specialty Service Requested 06/18/2015 08/16/2015 1 1 Encounter Details Date Type Department Care Team (Latest Contact Info) Description 06/18/2015 7:49 AM EST - 06/18/2015 11:59 PM [facility] [place] [address] Jesi Malik MD [facility] [place] [address] Sleep apnea, unspecified type; Smoking Discharge Disposition: Home Social History Tobacco Use Types Packs/Day Years Used Date Smoking Tobacco: Never Assessed Sex and Gender Information Value Date Recorded Sex Assigned at Male 12/27/2022 9:49 AM EDT Gender Identity Male 12/27/2022 9:49 AM EDT Sexual Orientation Straight 12/27/2022 9: 49 AM EDT documented as of this encounter Last Filed Vital Signs Vital Sign Reading Time Taken Comments Blood Pressure 131/43 06/18/2015 10:00 AM EST Pulse 54 06/18/2015 10:00 AM EST Temperature 36.8 ??C (98.3 ??F) 06/18/2015 9:15 AM ES T Respiratory Rate 16 06/18/2015 10:00 AM EST Oxygen Saturation 91% 06/18/2015 10:00 AM EST Inhaled Oxygen Concentration - - Weight - - Height - - Body Mass Index - - documented in this encounter Discharge Instructions * Discharge Instructions* Sav Woody, RN - 06/18/2015 9:26 AM EST 1. You have received medication before and/or during your procedure, which affects judgment and reaction time. 2. Do not drive, operate machinery, drink alchololic beverages, or make important decisions for 24 hours. 3. Be careful on stairs, as you may be unsteady on your feet. 4. You may eat a regular diet as tolerated. 5. Do not smoke if you are alone. 6. IV site- slight redness or tenderness is normal, you can use warm compresses. If tenderness and redness increases or foul drainage occours, please contact your M.D. Revised 05/25/14 documented in this encounter Medications at Time of Discharge Medication Sig Dispensed Refills Start Date End Date aspirin 81 mg Tablet, Delayed Release (E.C.) Take 81 mg by mouth daily. albuterol (PROVENTIL HFA;VENTOLIN HFA;PROAIR) 90 mcg/actuation HFA Aerosol Inhaler Inhale 2 puffs into the lungs every 4 hours as needed for Wheezing. Use with spacer 03/04/2023 buPROPion (WELLBUTRIN) 100 mg Tablet Take 100 mg by mouth 2 times daily. 09/09/2022 lisinopril (PRINIVIL;ZESTRIL) 5 mg Tablet Take 5 mg by mouth daily. 09/04/2022 fish oil-omega-3 fatty acids 1,000 mg Capsule Take 2 g by mouth daily. 09/09/2022 diclofenac (CATAFLAM) 50 mg tablet 50MG = 1 Tablet(s), PO, Three times daily 07/17/2006 09/27/2022 documented as of this encounter Progress Notes * Ally Mcdaniel RN - 06/13/2015 4:23 AM EST [facility]GIO NURSING DATABASE Name: ADDIS DONNELLY Date of : 1960 AGE 55 y.o. Address: [address] [place] [phone] (home) Mobile: Telephone Information: Referring Provider: Jesi Malik REASON FOR VISIT: Order Questions ? Question Answer Comment ? Where will study be performed? [facility] Rad[facility] ? Laterality Left ? Is the patient on anticoagulant / anitplatelet therapy ? No ? Reason for exam and clinical history: pleuritic chest pain, smoker, left lower lobe nodule ? Does patient require sedation? IV Assessment/Plan: CT guided left lung biopsy ?Patient Position:?? GWEN ?Biopsy/drain access site: left lower lobe, approach from left lateral chestto avoid vascular structures. ?Medications to discontinue (and days):?? [fish oil x 7d]- discussed with referring clinician ?Labs:?? [obtain per CT protocol] ?General anesthesia required:?? [no] Allergies not on file Pertinent PMH: Patient Active Problem List Diagnosis Code ??? Sleep apnea G47.30 ??? Pleuritic chest pain R07.81 ??? HTN (hypertension) I10 Pertinent PSH: No past surgical history on file. Date/Procedure Med's given/comments 06/18/15 CT left lung bx-cx, no nodule Fentanyl 50 mcg IV, Versed 1 [address] IV [address] room 1 via stretcher. Onto table prone (position) All monitors, O2, safety strap in place. Med's per protocol. Laboratory Results: Medications: Prior to Admission medications Medication Sig Start Date End Date Taking? Authorizing Provider diclofenac (CATAFLAM) 50 mg tablet 50MG = 1 Tablet(s), PO, Three times daily 07/17/06 documented in this encounter H&P Notes * Mejia Sánchez MD - 06/18/2015 8:31 AM EST Patient Name: Addis Donnelly Patient Age: 55 y.o. Birthdate: 1960 Admit date: 06/18/2015 Attending Physician: Jesi Malik MD PRE-PROCEDURE VIR NOTE: Referring Physician: Jesi Malik PRE-SEDATION ASSESSMENT / FOCUSED H&P Addendum: The patient's history and physical exam have been reviewed and completed. There has been no interval change from that of the pre-operative history and physical exam done within the last 30 days. Risks (including hemorrhage, infection, allergic reaction, occlusion, respiratory depression), and benefits discussed and patient consented to the procedure. I have reviewed with the patient, their prior experience with sedation. The patient has been NPO per protocol I have reviewed the sedation plan for this patient???s case and concur that Fentanyl and Versed areappropriate choices for sedation and will be provided per the protocoled order set for this case Physical Exam Heart: RRR Lungs: clear ASA Classification: ASA 2 - Patient with mild systemic disease with no functional limitations Mallampati Classification: II (soft palate, uvula, fauces visible) documented in this encounter Plan of Treatment Not on file documented as of this encounter Procedures Procedure Name Priority Date/Time Associated Diagnosis Comments CT CHEST WO CONTRAST (GENERIC) Routine 06/18/2015 9:15 AM EST Smoking CYTOPATHOLOGY NON-GYNECOLOGICAL Routine 06/18/2015 8:59 AM EST documented in this encounter Results * CT Chest Wo Contrast (GENERIC) (06/18/2015 9:15 AM EST) Anatomical Region Laterality Modality Chest Computed Tomogra phy Impressions 06/18/2015 9:57 AM EST Impression: 1. ??Near-complete resolution of the left lower lobe nodular opacity which is likely infectious/inflammatory. Only minimal residual groundglass opacity persists. 2. ??Significantly improved right pleural effusion. Adjacent to a focal area of pleural thickening, ovoid opacity is decreased in size as well as density. This may represent improving rounded atelectasis or infectious/inflammatory etiology. Recommend limited [id number] low-dose CT in proximally 3 months to ensure resolution. Narrative 06/18/2015 9:57 AM EST EXAMINATION: CT CHEST WO CONTRAST CLINICAL HISTORY: pleuritic chest pain, smoker, left lower lobe nodule TECHNIQUE: Helical CT of the chest was performed without contrast with the intention to perform left lower lobe biopsy, however this was not done. COMPARISON: 05/17/2015 CT from outside hospital ? FINDINGS: Lungs and airways: Central airways are widely patent. The approximate 2 cm irregular left lower lobe nodule has nearly completely resolved. There is minimal hazy groundglass in this region. Stable calcified granuloma in the left costophrenic angle. In the peripheral right lower lobe, a pleural blade-based ovoid opacity previously measuring 16 x 41 mm now measures 11 x 36 mm, and is less confluent. Much of the right pleural effusion has resolved; there is a small focal region of pleural thickening subtending the hazy opacity. There is bilateral dependent atelectasis. Pleura and pericardium: No left effusion. Significantly diminished right pleural effusion. No pericardial effusion. Heart and vasculature: Moderately enlarged; no interval change. Cannot assess vasculature in the absence of IV contrast. Mediastinum and hilar structures: No lymphadenopathy Allowing for the lack of intravenous contrast, the portions of the abdominal organs included in the field of view are unremarkable. Osseous structure: No focal lytic or sclerotic osseous lesion. A few foci of air are noted in the tissues adjacent to the left clavicle, of uncertain significance, possibly within a vein. ? Procedure Note Sangita Phan MD - 06/18/2015 EXAMINATION: CT CHEST WO CONTRAST CLINICAL HISTORY: pleuritic chest pain, smoker, left lower lobe nodule TECHNIQUE: Helical CT of the chest was performed without contrast withthe intention to perform left lower lobe biopsy, however this was not done. COMPARISON: 05/17/2015 CT from outside hospital ? FINDINGS: Lungs and airways: Central airways are widely patent. The approximate 2cm irregular left lower lobe nodule has nearly completely resolved. Thereis minimal hazy groundglass in this region. Stable calcified granuloma in theleft costophrenic angle. In the peripheral right lower lobe, a pleuralblade-based ovoid opacity previously measuring 16 x 41 mm now measures 11 x 36 mm, andis less confluent. Much of the right pleural effusion has resolved; there oral small focal region of pleural thickening subtending the hazy opacity. There is bilateral dependent atelectasis. Pleura and pericardium: No left effusion. Significantly diminished rightpleural effusion. No pericardial effusion. Heart and vasculature: Moderately enlarged; no interval change. Cannotassess vasculature in the absence of IV contrast. Mediastinum and hilar structures: No lymphadenopathy Allowing for the lack of intravenous contrast, the portions of theabdominal organs included in the field of view are unremarkable. Osseous structure: No focal lytic or sclerotic osseous lesion. A few foci of air are noted in the tissues adjacent to the left clavicle,of uncertain significance, possibly within a vein. ? IMPRESSION Impression: 1. Near-complete resolution of the left lower lobe nodular opacity whichis likely infectious/inflammatory. Only minimal residual groundglassopacity persists. 2. Significantly improved right pleural effusion. Adjacent to a focalarea of pleural thickening, ovoid opacity is decreased in size as well as density.This may represent improving rounded atelectasis or infectious/inflammatoryetiology. Recommend limited [id number] low-dose CT in proximally 3 months toensure resolution. Jesi Malik MD G CT ORDERABLES * Cytopathology Non-Gynecological (06/18/2015 8:59 AM EST) AP Specimen 06/18/2015 8:59 AM EST 06/18/2015 8:59 AM EST Narrative NAM[facility] PRITCHARD - 06/18/2015 8:59 AM EST Specimen requisition ordered. ??Separate Pathology report to follow Jesi Malik MD PATHOLOGY/CYTOLOGY O RDERABLES [facility] * Platelet count (06/18/2015 7:44 AM EST) Platelet 216 145 - 370 x10(3)/mcL [facility] Blood specimen (specimen) 06/18/2015 7:44 AM EST 06/18/2015 7:50 AM EST Narrative Resulting Agency Comment Spec In Lab Jesi Malik MD HEMATOLOGY ORDERABLE S Performing Organization Address City/[facility] Co de Phone Number NAMAN PRITCHARD documented in this encounter Visit Diagnoses Diagnosis Sleep apnea, unspecified type Smoking Tobacco use disorder documented in this encounter Administered Medications Inactive Administered Medications - up to 3 most recent administrations Medication Order MAR Action Action Date Dose Rate Site fentaNYL 50 mcg/mL multi-dose injection 25-50 mcg, Intravenous, EVERY 5 MIN PRN, Starting on Thu06/18/15 at 0837, Until Thu06/18/15 at 0909, Pain, per unit protocol, For use in Interventional Radiology (IR) only for procedural sedation with direct provider supervision and verbal order., Angio/IR (Intra-Procedure), Routine Given 06/18/2015 8:59 AM EST 50 mcg midazolam (PF) (VERSED) 1 mg/mL multi-dose injection 0.5-1 mg 0.5-1 mg, Intravenous, EVERY 5 MIN PRN, Starting on Thu06/18/15 at 0837, Until Thu06/18/15 at 0909, Anxiety, per unit protocol, For use in Interventional Radiology (IR) only for procedural sedation with direct provider supervision and verbal order., Angio/IR (Intra-Procedure), Routine Given 06/18/2015 8:59 AM EST 1 mg documented in this encounter Care Teams Electrical Integrator Relationship Specialty Start Date End Date Helen Valentino APRN PCP - General Family Medicine 06/18/15 12/08/18 documented as of this encounter
--- OUTSIDE RECORDS SUMMARY | 2024-02-25 10:40 | XMS_ITS | Encounter Summary ---
Author Organization [facility] Address [address] [place] [address] Care Team Providers Care Records Management Assistant Name Role Phone Unknown, Provider Primary Care Provider [phone] Tono Montero MD Primary Care Provider [phone] Encounter Details Date Type Department Care Team (Late st Contact Info) Description 07/13/2020 Lab Requisition [facility] Pathology & Laboratory Medicine - [address] [address] Outr Resulting Lab, Provider Social History Tobacco [...] Associated Diagnosis Comments PSA TOTAL, DIAGNOSTIC Routine 07/13/2020 7:42 EST documented in this encounter Results * PSA TOTAL, DIAGNOSTIC (07/13/2020 7:42 EST) PSA 0.4 0.0 - 3.5 ng/mL 07/13/2020 22:31 EST [facility] Blood VENOUS BLOOD / Unknown 07/13/2020 7:42 EST 07/13/2020 21:25 EST Narrative [facility] - 07/13/2020 22:31 EST NOTE: Serum PSA concentration should not be interpreted as absolute evidence for the presence or absence of malignant disease. Assayed on Siemens ADVIA Centaur XPT using chemiluminescent technology.??Values obtained by using different assay methods cannot be used interchangeably. Provider Outr Resulting Lab CHEMISTRY & BLOOD GAS ORDERABLES [facility] [address] [place] [address] documented in this encounter Visit Diagnoses Not on filedocumented in this encounter Care Teams Records Management Assistant Relationship Specialty Start Date End Date Unknown, MD Ian PCP - General 03/17/15 12/05/20 Tono Montero MD [facility] [place] [address] PCP - General 12/06/20 documented as of this encounter
--- OUTSIDE RECORDS SUMMARY | 2024-02-25 10:40 | XMS_ITS | Encounter Summary ---
Author Organization [facility] Address [place] [address] Care Team Providers Care Rail Car Operator Name Role Phone Emelyn Mac APRN Primary Care Provider + Encounter Details Date Type Department Care Team (Late st Contact Info) Description 05/17/2015 - 05/17/2015 11:59 PM EST Hospital Encounter Radiology Library at [facility] [place] [address] [facility] Disposition: Home Social History Tobacco Use [...] Sig Dispensed Refills Start Date End Date diclofenac (CATAFLAM) 50 mg tablet 50MG = 1 Tablet(s), PO, Three times daily 07/17/2006 09/27/2022 documented as of this encounter Plan of Treatment Not on file documented as of this encounter Procedures Procedure Name Priority Date/Time Associated Diagnosis Comments FILM LIBRARY STORAGE ONLY CT CHEST Routine 05/17/2015 12:00 AM EST Pain documented in this encounter Results * Film Library- Storage Only CT Chest (05/17/2015 12:00 AM EST) Narrative [facility] - 06/05/2015 5:54 PM EST See PACS for result report. Dr Damon [facility] FILM LIBRARY ORD ERABLES Section, [place] documented in this encounter Visit Diagnoses Diagnosis Pain Generalized pain documented in this encounter Care Teams Rail Car Operator Relationship Specialty Start Date End Date Emelyn Mac, KENNETH PCP - General 04/02/10 06/17/15 documented as of this encounter
--- OUTSIDE RECORDS SUMMARY | 2024-02-25 10:40 | XMS_ITS | Clinical Summary ---
Author Organization [facility] Address [address] [place] [address] Care Team Providers Care Baking Assistant Name Role Phone Tono Montero MD Primary Care Provider [phone] Active Problems Problem Noted Date Diagnosed Date High blood pressure 12/11/2020 Overview: On medication High cholesterol 12/11/2020 Overview: On medication, modifying diet Social History Tobacco Use Types Packs/Day Years Used Date Smoking Tobacco: Never Assessed Sex and Gender Information Value Date Recorded Sex Assigned at Not on file Gender Identity Male 12/06/2020 17:45 EDT Sexual Orientation Not on file Last Filed Vital Signs Vital Sign Reading Time Taken Comments Blood Pressure 118/56 12/11/2020 0935 EDT Pulse - - Temperature - - Respiratory Rate - - Oxygen Saturation 98% 12/11/2020 0935 EDT Inhaled Oxygen Concentration - - Weight - - Height - - Body Mass Index - - Plan of Treatment Health Maintenance Due Date Last Done Comments RSV Immunization ( o r 60+ Years) (1 - 1-dose 60+ series) 2022 COVID-19 Vaccine (2022-24 season) 2023 Hepatitis C Screen Completed 01/13/2023, 01/13/2023 Procedures Procedure Name Priority Date/Time Associated Diagnosis Comments HEPATITIS C AB W REFLEX TO HCV RNA BY PCR Routine 01/13/2023 9:30 EDT from Last 3 Months or Most Recently Relevant to Health Maintenance Results * (ABNORMAL) HEPATITIS C AB W REFLEX TO HCV RNA BY PCR (01/13/2023 9:30 EDT) Hep C Antibody Reactive(A ) Negative 01/14/2023 10:42 EDT [facility] Comment: Supplemental testing for HCV RNA is ordered to rule out active HCV infection. Index value ??is >=1.00 and <11.00 Blood VENOUS BLOOD / Unknown 01/13/2023 9:30 EDT 01/13/2023 21:17 EDT Provider Outr Resulting Lab CHEMISTRY & BLOOD GAS ORDERABLES [facility] [address] [place] [address] from Last 3 Months or Most Recently Relevant to Health Maintenance Care Teams Baking Assistant Relationship Specialty Start Date End Date Tono Montero MD [facility] [address] [facility] [place] [address] PCP - General 12/06/20
--- OUTSIDE RECORDS SUMMARY | 2024-02-25 10:40 | XMS_ITS | Encounter Summary ---
Author Organization [facility] Address [address] [place] [address] Care Team Providers Care Chemistry Associate Name Role Phone Tono Montero MD Primary Care Provider [phone] Encounter Details Date Type Department Care Team (Late st Contact Info) Description 01/13/2023 Lab Requisition [facility] Pathology & Laboratory Medicine - [address] [address] Outr Resulting Lab, Provider Social History Tobacco [...] Procedure Name Priority Date/Time Associated Diagnosis Comments HIV 1/2 ANTIGEN AND ANTIBODY, 4TH GENERATION Routine 01/13/2023 9:30 EDT documented in this encounter Results * HIV 1/2 ANTIGEN AND ANTIBODY, 4TH GENERATION (01/13/2023 9:30 EDT) HIV 1 and 2 Antibody/p24 Antigen, 4th Generation Negative Negative 01/14/2023 10:03 EDT [facility] Comment:If acute HIV-1 infec tion is suspected in a high risk patient, submit plasma specimen for HIV-1 RNA quantitation test. Blood VENOUS BLOOD / Unknown 01/13/2023 9:30 EDT 01/13/2023 21:17 EDT Narrative [facility] - 01/14/2023 10:03 EDT Fourth Generation assay performed on the Siemens Centaur XPT. Provider Outr Resulting Lab IMMUNOLOGY A ND SEROLOGY ORDERABLES [facility] [address] [place] [address] documented in this encounter Visit Diagnoses Not on filedocumented in this encounter Care Teams Chemistry Associate Relationship Specialty Start Date End Date Tono Montero MD [facility] [place] [address] PCP - General 12/06/20 documented as of this encounter
--- OUTSIDE RECORDS SUMMARY | 2024-02-25 10:40 | XMS_ITS | Encounter Summary ---
Author Organization [facility] Address [address] [place] [address] Care Team Providers Care Chief Dispatcher Service Name Role Phone Tono Montero MD Primary Care Provider Reason for Referral * Radiology Services (Routine) - Closed Specialty Diagnoses / Procedures Referred By Mounika carr Referred To Contact Diagnoses Ventricular tachycardia (HCC-CMS) Procedures CT CARDIAC ANGIO CORONARY STUDY Prabhjot Baxter [address] [place] [address] [place] [address] Referral ID Status Reason Start Date Expiration Date Visits Re quested Visits Authorized [id number] Closed 11/16/2020 1 1 Reason for Visit * Radiology Services (Routine) - Closed Specialty Diagnoses / Procedures Referred By Mounika carr Referred To Contact Diagnoses Ventricular tachycardia (HCC-CMS) Procedures CT CARDIAC ANGIO CORONARY STUDY Prabhjot Baxter [address] [place] [address] [place] [address] Referral ID Status Reason Start Date Expiration Date Visits Re quested Visits Authorized [id number] Closed 11/16/2020 1 1 Encounter Details Date Type Department Care Team (Latest Contact Info) Description 12/11/2020 7:59 EDT - 12/11/2020 23:59 EDT [facility] Radiology CT - Main [address] [address] Ventricular tachycardia (HCC-CMS) Discharge Disposition: Home or Self Care Social History Tobacco Use Types Packs/Day Years [...] 7:57 EDT documented as of this encounter Last Filed Vital Signs Vital Sign Reading Time Taken Comments Blood Pressure 118/56 12/11/2020 0935 EDT Pulse - - Temperature - - Respiratory Rate - - Oxygen Saturation 98% 12/11/2020 0935 EDT Inhaled Oxygen Concentration - - Weight - - Height - - Body Mass Index - - documented in this encounter Discharge Disposition Disposition Code Departure Means Destination Home or Self Care documented in this encounter Plan of Treatment Not on file documented as of this encounter Procedures Procedure Name Priority Date/Time Associated Diagnosis Comments CT CARDIAC ANGIO CORONARY STUDY Routine 12/11/2020 9:29 EDT Ventricular tachycardia ([facility]) documented in this encounter Results * CT CARDIAC ANGIO CORONARY STUDY (12/11/2020 9:29 EDT) Anatomical Region Laterality Modality Chest Computed Tomogra phy 12/11/2020 10:1 2 EDT Impressions 12/11/2020 10:12 EDT 1. Coronary atherosclerotic disease without evidence of significant obstruction except for possible occlusion of a small second obtuse marginal. 2. Stenotic, bicuspid aortic valve. 3. Left ventricular hypertrophy and dilatation Narrative 12/11/2020 10:[address] CARDIAC ANGIO CORONARY STUDY ??12/11/2020 9:00 AM Clinical History/Comments: NSVT Comparison: None Technique: A prospectively cardiac-gated CT was acquired 256 x 0.625 mm with axial technique (step and shoot) using a timing bolus over the descending aorta. ??Images of the cardiac area were convoluted at 0.8 mm thickness at 0.4 mm intervals. Vessel analysis and 3D renderings were performed on the dedicated console. FINDINGS: Study quality is excellent. Left main coronary artery: There is a [...] Small and distal to the second diagonal origin, the left anterior descending is narrowed less than [...] luminal irregularities with less than 25% narrowing. Left ventricle: The left ventricle is enlarged with an end diastolic dimension of 6.7 cm and is hypertrophied with wall thickness of 12 mm laterally and 18 mm inferiorly. Septal thickness cannot be evaluated as the right ventricle is not opacified. The LV is also over trabeculated, but does not meet criteria for noncompaction. The aortic valve is bicuspid, thickened, and heavily calcified. The mitral valve looks normal. The right ventricle and atria appear to be normal size. There is no evidence of pericardial disease. Ancillary findings: None of significance Procedure Note Bradley Suarez MD - 12/11/2020 CT CARDIAC ANGIO CORONARY STUDY 12/11/2020 9:00 AM Clinical History/Comments: NSVT Comparison: None Technique: A prospectively cardiac-gated CT was acquired 256 x 0.625 mm with axialtechnique (step and shoot) using a timing bolus over the descending aorta.Images of the cardiac area were convoluted at 0.8 mm thickness at 0.4 mmintervals. Vessel analysis and 3D renderings [facility] console. FINDINGS: Study quality is excellent. Left main coronary artery: There is a small amount of calcium along theunderside of the left main coronary artery, but no discernible narrowingis present in the left main is short. Left anterior descending: There is soft plaque with less than 25%narrowing in the proximal LAD. The first diagonal is a medium size vesselwith minor irregularities. The second diagonal is large with minorirregularities, but no measurable narrowing. Small and distal to thesecond diagonal origin, the left anterior descending is narrowed less than50% by hard plaque. The distal LAD is large without measurable narrowing.Apparent filling defect in the distal LAD is likely due to to motionartifact. Left circumflex: The first and second obtuse marginal branches are smalland the second is very short and may be occluded. M3 is medium sizevessel. The mid circumflex is narrowed less than 50% by hard plaque. Right coronary: The RCA is dominant with small distal vessels. Minorluminal irregularities with less than 25% narrowing. Left ventricle: The left ventricle is enlarged with an end diastolicdimension of 6.7 cm and is hypertrophied with wall thickness of 12 mmlaterally and 18 mm inferiorly. Septal thickness cannot be evaluated asthe right ventricle is not opacified. The LV is also over trabeculated,but does not meet criteria for noncompaction. The aortic valve is bicuspid, thickened, and heavily calcified. The mitralvalve looks normal. The right ventricle and atria appear to be normalsize. There is no evidence of pericardial disease. Ancillary findings: None of significance IMPRESSION 1. Coronary atherosclerotic disease without evidence of significantobstruction except for possible occlusion of a small second obtusemarginal. 2. Stenotic, bicuspid aortic valve. 3. Left ventricular hypertrophy and dilatation Authorizing Provider Result Alessio Baxter [facility] CT ORDERABLES documented in this encounter Visit Diagnoses Diagnosis Ventricular tachycardia (HCC-CMS) Paroxysmal ventricular tachycardia documented in this encounter Administered Medications Inactive Administered Medications - up to 3 most recent administrations Medication Order MAR Action Action Date Dose Rate Site iohexoL (OMNIPAQUE 350) solution 1-150 mL 1-150 mL, intravenous, Once in imaging, 1 dose, Starting on Thu12/11/20 at 0913, Until Thu12/11/20 at 0929, Routine, Imaging Protocol Orders Given 12/11/2020 9:29 EDT 115 mL nitroglycerin (NITROSTAT) SL tablet 0.4 mg 0.4 mg, sublingual, EVERY 5 MIN PRN, Starting on Thu12/11/20 at 0913, Until Chelo 12/13/20 at 0202, Chest Pain, Routine, Imaging Protocol Orders Given 12/11/2020 9:25 EDT 0.4 mg documented in this encounter Orders Medications Ordered That Shay ht Not Have Been Administered Count Last Ordered Date First Ordered Date metoprolol TARtrate Tartrate syringe 2.5-15 mg 1 12/11/2020 documented in this encounter Care Teams Chief Dispatcher Service Relationship Specialty Start Date End Date Tono Montero MD [address] [place] [address] PCP - General 12/06/20 documented as of this encounter
--- OUTSIDE RECORDS SUMMARY | 2024-02-25 10:40 | XMS_ITS | Encounter Summary ---
Author Organization [facility] Address [address] [place] [address] Care Team Providers Care Director Internal Audit Name Role Phone Unknown, Provider Primary Care Provider [phone] Encounter Details Date Type Department Care Team (Late st Contact Info) Description 11/16/2020 Orders Only [facility] Radiology - [address] [address] Edgar Haas MD [address] [place] [address] [address] [place] [phone] Social History Tobacco Use Types Packs/Day Years Used Date Smoking Tobacco: Never Assessed Sex and Gender Information Value Date Recorded Sex Assigned at Not on file Gender Identity Male 12/06/2020 17:45 EDT Sexual Orientation Not on file documented as of this encounter Plan of Treatment Not on file documented as of this encounter Visit Diagnoses Not on filedocumented in this encounter Care Teams Director Internal Audit Relationship Specialty Start Date End Date Unknown, Provider, PCP - General 03/17/15 12/05/20 documented as of this encounter
--- OUTSIDE RECORDS SUMMARY | 2024-02-25 10:40 | XMS_ITS | Encounter Summary ---
Author Organization [facility] Address [address] [place] [address] Care Team Providers Care Dog Obedience Instructor Name Role Phone Tono Montero MD Primary Care Provider [phone] Encounter Details Date Type Department Care Team (Late st Contact Info) Description 07/26/2022 Lab Requisition [facility] Pathology & Laboratory Medicine - [address] [address] Outr Resulting Lab, Provider Social History Tobacco [...] Associated Diagnosis Comments PSA TOTAL, DIAGNOSTIC Routine 07/25/2022 7:35 EDT documented in this encounter Results * PSA TOTAL, DIAGNOSTIC (07/25/2022 7:35 EDT) PSA 0.4 <=4.5 ng/mL 07/28/2022 11:10 EDT [facility] Blood VENOUS BLOOD / Unknown 07/25/2022 7:35 EDT 07/27/2022 15:59 EDT Narrative [facility] - 07/28/2022 11:10 EDT NOTE: Serum PSA concentration should not be interpreted as absolute evidence for the presence or absence of malignant disease. Assayed on Siemens ADVIA Centaur XPT using chemiluminescent technology.??Values obtained by using different assay methods cannot be used interchangeably. Provider Outr Resulting Lab CHEMISTRY & BLOOD GAS ORDERABLES [facility] [address] [place] [address] documented in this encounter Visit Diagnoses Not on filedocumented in this encounter Care Teams Dog Obedience Instructor Relationship Specialty Start Date End Date Tono Montero MD [address] [place], [place] [id number] PCP - General 12/06/20 documented as of this encounter
--- OUTSIDE RECORDS SUMMARY | 2024-02-25 10:40 | XMS_ITS | Encounter Summary ---
Author Organization [facility] Address [address] [place] [address] Care Team Providers Care Electric Sign Wirer Name Role Phone Tono Montero MD Primary Care Provider Encounter Details Date Type Department Care Team (Late st Contact Info) Description 07/03/2023 Lab Requisition [facility] Pathology & Laboratory Medicine - [address] [address] Daryl Katz MD [address] [place] [address], [address] [place], [place] [id number] Encounter for screening for malignant neoplasm of colon Social History Tobacco Use Types Packs/Day Years Used Date Smoking Tobacco: Never Assessed Sex and Gender Information Value Date Recorded Sex Assigned at Not on file Gender Identity Male 12/06/2020 17:45 EDT Sexual Orientation Not on file documented as of this encounter Plan of Treatment Not on file documented as of this encounter Procedures Procedure Name Priority Date/Time Associated Diagnosis Comments SURGICAL PATHOLOGY Today 07/03/2023 12 :54 EST Encounter for screening for malignant neoplasm of colon documented in this encounter Results * SURGICAL PATHOLOGY (07/03/2023 12:54 EST) Note to Patient The following pathology results have been interpreted by your pathologist and may be available to you before your health provider has had the opportunity to review them. Please allow time for your provider to receive these results and explore management options, if applicable. 07/07/2023 12:49 EST [facility] Final Diagnosis A. 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 - Negative for dysplasia and malignancy. - See comment. B. COLON, 25 CMS, POLYP #2, BIOPSY: - Hyperplastic polyp. 07/07/2023 12:49 [facility] Diagnosis Comment A: Immunoperoxidase stains were performed on this case to further characterize the lesion. ANTIBODY(CLONE)(BL OCK):RESULT Desmin (DE-R-11, Leica) (A1): Negative in area of fibroelastosis S-100 ALK PHOS (4C4.9, John Day) (A1): Negative in area of fibroelastosis NOTE: One or more of the reagents used in immunoperoxidase testing in this case may not have been cleared or approved by the U.S. Food and Drug Administration (FDA). The FDA has determined that such clearance or approval is not necessary. These tests are used for clinical purposes. They should not be regarded as investigational or for research. These reagents' performance characteristics have been determined by [facility] and/or by the referring laboratory. The positive and negative controls worked appropriately. If immunoperoxidase staining has been performed on alcohol fixed cytology specimens, which has not been fully validated, the assays should be interpreted with caution and correlated with clinical data. This laboratory is certified under the Clinical Laboratory Improvement Amendments of 1988 (CLIA-88) as qualified to perform high complexity clinical laboratory testing. 07/07/2023 12:49 [facility] Attestation By the signature below, the attending physician certifies that they have 1) personally conducted a gross and/or microscopic examination of the described specimen(s), and/or personally interpreted the results of laboratory testing of the described specimen(s), and 2) personally rendered or confirmed the above diagnosis. 07/07/2023 12:49 [facility] at 1249 Clinical History H/O polyps 07/07/2023 12:49 [facility] Gross Description A. Received in formalin labelled with proper patient identification (initials H, D) and 1. Polyp at 25 cm is a single ramirez polypoid tissue (0.3 x 0.3 x 0.2 cm). Submitted intact in A1. B. Received in formalin labelled with proper patient identification (initials H, D) and 2. Polyp at 25 cm # 2 is a single ramirez-brown tissue (0.3 x 0.3 x 0.1 cm). Submitted intact in B1. Ysabel Ibrahim 07/04/2023 13:54 07/07/2023 12:49 EST [facility] Performing Lab [facility] 12:49 EST [facility] Scanned Images 07/07/2023 12:49 EST [facility] Tissue COLON STRUCTURE / Unknown 07/03/2023 12:54 EST 07/03/2023 21:23 EST Tissue specimen (specimen) COLON STRUCTURE / Unknown 07/03/2023 12:54 EST 07/03/2023 21:23 EST Daryl Katz MD PATHOLOGY ORDERABLES [facility] [address] [place] [address] documented in this encounter Visit Diagnoses Diagnosis Encounter for screening for malignant neoplasm of colon Special screening for malignant neoplasms, colon documented in this encounter Care Teams Electric Sign Wirer Relationship Specialty Start Date End Date Tono Montero MD [address] [place] [address] PCP - General 12/06/20 documented as of this encounter
--- OUTSIDE RECORDS SUMMARY | 2024-02-25 10:40 | XMS_ITS | Encounter Summary ---
Author Organization [facility] Address [address] [place] [address] Care Team Providers Care Partnership Manager Name Role Phone Unknown, Provider Primary Care Provider [phone] Encounter Details Date Type Department Care Team (Late st Contact Info) Description 05/29/2015 Results Only [facility] [phone] Pedro Goldberg, DO [address] [facility] [address] [place], [place] [address] Social History Tobacco Use Types Packs/Day Years Used Date Smoking Tobacco: Never Assessed Sex and Gender Information Value Date Recorded Sex Assigned at Not on file Gender Identity Male 12/06/2020 17:45 EDT Sexual Orientation Not on file documented as of this encounter Plan of Treatment Not on file documented as of this encounter Procedures Procedure Name Priority Date/Time Associated Diagnosis Comments SURGICAL PATHOLOGY Routine 05/29/2015 10 :07 EST documented in this encounter Results * SURGICAL PATHOLOGY (05/29/2015 10:07 EST) Pathology Report: SURGICAL PATHOLOGY REPORT Reports generated via electronic interface contain original data; however they are lacking the format of the original report. Caution should be taken when reading/interpret ing unformatted reports. Name: ? ADDIS DONNELLY ? Accession #: ? [id number] ? : ? 1960 (Age: 55) ??M ? Collect Date: ? 05/29/2015 ? Location: ? [facility] ? Receive Date: ? 05/30/2015 ? Provider: PEDRO GOLDBERG DO Copy to: ROSALES PASTOR LABORER OPERATOR ? Final Pathologic Diagnosis: COLON, TRANSVERSE, POLYP, BIOPSY: - ??Fragment of tubular adenoma. Document reviewed and electronically signed by: KEYON WELLINGTON MD Report ??Date: 05/31/2015 15:48 By the signature above, the attending physician certifies that he/she has personally conducted a gross and/or microscopic examination of the described specimens and rendered or confirmed the above diagnosis. Specimen(s) Received: Transverse colon polyp Clinical History: Colorectal screening, blood in stool Gross Description: ? Received in formalin labelled with proper patient identification (initials H, D) and transverse colon polyp is a single light ramirez tissue fragment (0.3 x 0.2 x 0.2 cm). Submitted intact in block 1. Huma Mccoy 05/30/2015 10:52 AM End of Report [facility] 05/29/2015 10:0 7 EST 05/30/2015 10:07 EST Pedro Goldberg DO PATHOLOGY ORDER CARO [facility] [address] [place] [address] documented in this encounter Visit Diagnoses Not on filedocumented in this encounter Care Teams Partnership Manager Relationship Specialty Start Date End Date Unknown, Provider, PCP - General 03/17/15 12/05/20 documented as of this encounter
--- OUTSIDE RECORDS SUMMARY | 2024-02-25 10:40 | XMS_ITS | Encounter Summary ---
Author Organization [facility] Address [address] [place] [address] Care Team Providers Care Tax Examining Technician Name Role Phone Tono Montero MD Primary Care Provider [phone] Encounter Details Date Type Department Care Team (Late st Contact Info) Description 01/13/2023 Lab Requisition [facility] Pathology & Laboratory Medicine - [address] [address] Outr Resulting Lab, Provider Social History Tobacco [...] Procedure Name Priority Date/Time Associated Diagnosis Comments HCV RNA DETECT QUANT Today 01/13/2023 9:30 EDT HEPATITIS C AB W REFLEX TO HCV RNA BY PCR Routine 01/13/2023 9:30 EDT documented in this encounter Results * HCV RNA DETECT QUANT (01/13/2023 9:30 EDT) HCV RNA Qualitative Undetected Undetected 01/15/2023 12:13 EDT [facility] Blood VENOUS BLOOD / Unknown 01/13/2023 9:30 EDT 01/13/2023 21:17 EDT Narrative [facility] - 01/15/2023 12:13 EDT The quantification range of this assay is 15 IU/mL to 100,000,000 IU/mL. Testing was performed using the Felix HCV test ([employer] with the felix [id number] System. Provider Outr Resulting Lab CHEMISTRY & BLOOD GAS ORDERABLES Performing Organization Address [facility] Co de Phone Number [facility] [address] [place] [address] * (ABNORMAL) HEPATITIS C AB W REFLEX TO HCV RNA BY PCR (01/13/2023 9:30 EDT) Hep C Antibody Reactive(A ) Negative 01/14/2023 10:42 EDT [facility] Comment: Supplemental testing for HCV RNA is ordered to rule out active HCV infection. Index value ??is >=1.00 and <11.00 Blood VENOUS BLOOD / Unknown 01/13/2023 9:30 EDT 01/13/2023 21:17 EDT Provider Outr Resulting Lab CHEMISTRY & BLOOD GAS ORDERABLES Performing Organization Address [facility] Co de Phone Number [facility] [address] [place] [address] documented in this encounter Visit Diagnoses Not on filedocumented in this encounter Care Teams Tax Examining Technician Relationship Specialty Start Date End Date Tono Montero MD [address] [place] [address] PCP - General 12/06/20 documented as of this encounter
--- OUTSIDE RECORDS SUMMARY | 2024-02-25 10:40 | XMS_ITS | Referral Summary ---
Author Organization [facility] Address [address] [place] [address] Care Team Providers Care Editor At Large Name Role Phone Tono Montero MD Primary Care Provider [phone] Active Problems Problem Noted Date Diagnosed Date [...] Mass Index - - Plan of Treatment Not on file Procedures Procedure Name Priority Date/Time Associated Diagnosis Comments HEPATITIS C AB W REFLEX TO HCV RNA BY PCR Routine 01/13/2023 9:30 EDT from Last 3 Months or Most Recently Relevant to Health Maintenance Results * (ABNORMAL) HEPATITIS C AB W REFLEX TO HCV RNA BY PCR (01/13/2023 9:30 EDT) Hep C Antibody Reactive(A ) Negative 01/14/2023 10:42 EDT [facility] Comment: Supplemental testing for HCV RNA is ordered to rule out active HCV infection. Index value ??is >=1.00 and <11.00 Blood VENOUS BLOOD / Unknown 01/13/2023 9:30 EDT 01/13/2023 21:17 EDT Provider Outr Resulting Lab CHEMISTRY & BLOOD GAS ORDERABLES [facility] [address] [place] [address] from Last 3 Months or Most Recently Relevant to Health Maintenance Care Teams Editor At Large Relationship Specialty Start Date End Date Tono Montero MD [address] [facility] [facility] [place] [address] PCP - General 12/06/20
--- OUTSIDE RECORDS SUMMARY | 2024-02-25 10:40 | XMS_ITS | Encounter Summary ---
Author Organization [facility] Address [address] [place] [address] Care Team Providers Care Last Puller Name Role Phone Unknown, Provider Primary Care Provider [phone] Encounter Details Date Type Department Care Team (Latest Contact Info) Description 05/29/2015 17:11 EST - 05/29/2015 23:59 EST Hospital Encounter [address] [address] Unknown, Provider, Discharge Disposition: Home or Self Care Social History Tobacco Use Types Packs/Day Years Used Date Smoking Tobacco: Never Assessed Sex and Gender Information Value Date Recorded Sex Assigned at Not on file Gender Identity Male 12/06/2020 17:45 EDT Sexual Orientation Not on file documented as of this encounter Discharge Disposition Disposition Code Departure Means Destination Home or Self Snf documented in this encounter Plan of Treatment Not on file documented as of this encounter Visit Diagnoses Not on filedocumented in this encounter Care Teams Last Puller Relationship Specialty Start Date End Date Unknown, Provider, PCP - General 03/17/15 12/05/20 documented as of this encounter
[2024-02-25 16:51] LABS: Anion Gap 12.4 mmol/L (3-11); BUN 20 mg/dL (7-18); CO2 25.6 mmol/L (21.0-32.0); CREATININE 1.2 mg/dL (0.70-1.30); Calcium 9.3 mg/dL (8.5-10.1); Chloride 104 mmol/L (98-107); Glucose 103 mg/dL (74-106); Magnesium 2.1 mg/dL (1.8-2.4); Potassium 4.8 mmol/L (3.5-5.1); Sodium 142 mmol/L (136-145)
[2024-02-25 17:36] LABS: COMMENT (LAB VIEW ONLY) 15.45 mg/dL; Microalb ug/mg Crea 25.2 ug/mg Cr
[2024-02-26 09:42] LABS: PSA, Screening 0.3 ng/mL (<=4.5)
== END 2024-02-25 10:35 | disposition home or self-care (01) ==
LOC: NCHCN 10:34
PROVIDERS: PCP Family Medicine; Visit Provider Student in an Organized Health Care Education/Training Program
DX: E11.9 Type 2 diabetes mellitus without complications (principal); Z12.5 Encounter for screening for malignant neoplasm of prostate; I10 Essential (primary) hypertension
CPT/HCPCS: 80048; 84153; 82043; 82570; 83735

== ENCOUNTER 2024-12-21 10:38 | Emergency (ER) | payer OTHER, SELFPAY ==
[2024-12-21 10:41] VITALS: BP 139/86; PULSE 82; RESP 16; TEMP 37.2; O2SAT 95
--- NOTE | 2024-12-21 11:04 | W.ED.GENAD ---
Discharge Plan Disposition Patient Disposition: Home Condition: Stable Discharge Details Clinical Impression: Bright red rectal bleeding Primary Care Provider: Christiano Hurley ED Provider: Omar Freire Home Meds and New Rx's Prescriptions: Continued aspirin [Adult Aspirin Regimen] 81 mg tablet,delayed release (DR/EC) 81 mg PO DAILY Invokana 100 mg tablet 100 mg PO DAILY acetaminophen 500 mg capsule 1,000 mg PO Q6H PRN atorvastatin 40 mg tablet 80 mg PO QHS losartan 25 mg tablet 25 mg PO DAILY psyllium husk [Fiber (psyllium husk)] 0.4 gram capsule 0.4 g PO QID spironolactone 25 mg tablet 25 mg PO DAILY torsemide 10 mg tablet 10 mg PO DAILY metoprolol tartrate 25 mg tablet 25 mg PO BID Rx Instructions: 1/2 tab am and pm. bupropion HCl 150 mg tablet sustained-release 12 hr 150 mg PO DAILY Patient Comments: TAKE 1 TABLET BY MOUTH ONCE DAILY FOR 3 DAYS THEN INCREASE TO TAKE ONE TABLET TWICE DAILY. START ONE WEEK BEFORE YOU QUIT SMOKING. No Action amoxicillin 500 mg capsule 2,000 mg PO PRN Rx Instructions: Take 4 capsules by mouth once as needed prior to procedures apixaban 5 mg tablet 5 mg PO BID Discharge Instructions Additional Instructions: Your blood counts today were normal. I recommend holding your blood thinner until you have a colonoscopy. I placed you on a referral list and you should receive a call for an appointment. Return to the emergency department if you feel more ill or have severe abdominal pain. HPI General Mode of arrival: ambulatory. Date/Time Provider Initiated Documentation: 12/21/24 10:46. Limitations to Documentation: no limitations. Information obtained by: patient. History of Present Illness 64 year old M presents to the emergency department with the chief complaint of rectal bleeding, described as moderate, Patient started experiencing this year(s) (2) and it has been constant. No relieving factors improve symptom(s), Patient notes no other symptoms.. Patient did receive the following treatments prior to arrival, none Related Data Home Medications ?Medication ?Instructions ?Recorded ?Confirmed aspirin 81 mg tablet,delayed 81 mg PO DAILY 01/08/21 12/21/24 release (Adult Aspirin Regimen) bupropion HCl 150 mg tablet,12 hr 150 mg PO DAILY 09/02/22 12/21/24 sustained-release acetaminophen 500 mg capsule 1,000 mg PO Q6H PRN 04/09/23 12/21/24 amoxicillin 500 mg capsule 2,000 mg PO PRN 04/09/23 12/21/24 apixaban 5 mg tablet 5 mg PO BID 04/09/23 12/21/24 atorvastatin 40 mg tablet 80 mg PO QHS 04/09/23 12/21/24 losartan 25 mg tablet 25 mg PO DAILY 04/09/23 12/21/24 psyllium husk 0.4 gram capsule 0.4 g PO QID 04/09/23 12/21/24 (Fiber (psyllium husk)) spironolactone 25 mg tablet 25 mg PO DAILY 04/09/23 12/21/24 torsemide 10 mg tablet 10 mg PO DAILY 04/09/23 12/21/24 canagliflozin 100 mg tablet 100 mg PO DAILY 06/04/23 12/21/24 (Invokana) metoprolol tartrate 25 mg tablet 25 mg PO BID 06/04/23 12/21/24 Allergies Allergy/AdvReac Type Severity Reaction Status Date / Time oxycodone AdvReac Intermediate Pt. states Verified 12/21/24 10:45 I feel like dog crap General Stated Complaint: GenMedical ISHA: 3 Review of Systems All systems reviewed & are unremarkable except as noted in HPI and below Constitutional Constitutional: Denies chills, Denies fever(s) and Denies weakness Cardiovascular Cardiovascular: Denies chest pain and Denies dyspnea Respiratory Respiratory: Denies cough and Denies dyspnea Gastrointestinal Gastrointestinal: Denies abdominal pain, Reports hematochezia, Denies nausea and Denies vomiting Neurologic Neurologic: Denies weakness Exam Const General: no acute distress Orientation: alert [facility] Head: normal to inspection Ears: external ears normal General nose exam: external nose normal Mouth: moist mucous membranes Eyes General: appearance normal, both eyes and all related structures Neck Neck: normal visual inspection Resp Effort & Inspection: normal respiratory effort and able to speak in complete sentences Cardio Rate: regular rate GI Palpation: soft and nontender Skin General skin exam: no rashes or lesions noted Neuro General: patient alert and patient oriented x3 Extrem General: normal to inspection Psych Mental Status: mental status grossly normal Course Vital Signs Vital signs: Vital Signs Temperature 37.2 C 12/21/24 10:41 Pulse 82 12/21/24 10:41 Respiratory Rate 16 12/21/24 10:41 Blood Pressure 139/86 12/21/24 10:41 Pulse Oximetry 95 12/21/24 10:41 Temperature 37.2 C 12/21/24 10:41 Temperature Source Oral 12/21/24 10:41 Pulse 82 12/21/24 10:41 Respiratory Rate 16 12/21/24 10:41 Blood Pressure 139/86 12/21/24 10:41 Pulse Oximetry 95 12/21/24 10:41 Oxygen Delivery Method Room Air 12/21/24 10:41 Oxygen Flow Rate 0 12/21/24 10:41 Pain Level 0 12/21/24 10:41 Medical Decision Making 64-year-old male with a history of A-fib on Eliquis, hypertension, who comes in with complaints of intermittent rectal bleeding. He says he has had issues with this for the past few years. He had a colonoscopy in the past which has showed internal hemorrhoids. He states today he had a lot of blood in his toilet bowl when he had a bowel movement. He denies loss consciousness, difficulty breathing, chest pain. He is stable on arrival, he has no abdominal tenderness. He has dried blood in both buttocks but no current active bleeding. There is no visible external hemorrhoids. Suspect he has a bleeding internal hemorrhoid, will check a CBC, CMP and coagulation studies and reassess. Patient stable and has not had any recurrent bleeding. His blood count is normal. Discussed results with him given the reassuring H&H I feel he is stable for discharge and given have an outpatient colonoscopy. I am going to have him hold his apixaban until this is done. Return precautions given. Differential Diagnosis Differential Diagnosis: Internal hemorrhoids, polyp PFSH All Active Problems (Updated 12/21/24 @ 12:49 by Omar Freire MD) Bright red rectal bleeding (Acute) Encounter for screening colonoscopy (Acute) Plantar fascia rupture (Acute ~09/2021) Fracture of foot bone, left, closed (Acute 09/24/21) plantar calcaneal spur Prediabetes (Acute) Ventricular ectopy (Acute) CAD (coronary artery disease) (Chronic) Acute confusion (Acute) Bicuspid aortic valve (Acute) Hyperlipidemia (Acute) HTN (hypertension) with goal to be determined (Acute) Alcohol use (Acute) 07/30/[address] Montero active problem RH Smoker (Acute) as of 07/30/20 trying to cut back RH Sleep apnea (Acute) Elevated fasting blood sugar (Acute) Body mass index [BMI] 34.0-34.9, adult (Acute) NSVT (nonsustained ventricular tachycardia) (Acute) Abnormal ECG (Acute) Near syncope (Acute) Bradycardia (Acute) Medical History (Updated 12/21/24 @ 12:49 by Omar Freire MD) Syncope ETOH abuse HTN (hypertension) JOSEPH (obstructive sleep apnea) COPD (chronic obstructive pulmonary disease) Afib Ascending aorta dilatation Mitral stenosis Diverticular disease Heart murmur Left inguinal hernia Surgical History (Updated 07/06/23 @ 15:21 by Montserrat Noyola) History of colonoscopy (~06/2023) biopsies History of hernia repair H/O aortic valve replacement Social History Smoking/Tobacco Use Status: Former Tobacco Use Quit Date: 08/19/22 Smoking risk assessment performed?: Yes Alcohol Intake: current Alcohol Intake frequency: a few times a month Alcohol type: beer Drug use: Never Substance use type: does not use Housing: house Current gender identity: male What type of physical activity do you participate in: additional Details: 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
[2024-12-21 11:29] LABS: Abs Immature Grans 0.01 10^3/uL (0.0-0.06); HCT 47.6 % (40.0-50.0); HGB 15.8 g/dL (13.5-17.5); Immature Grans % 0.1 %; MCH 30.6 pg (27.0-33.0); MCHC 33.2 % (32.0-36.0); MCV 92 fL (80-95); MPV 9.7 fL (8.0-11.0); Platelet Count 214 10^3/uL (130-400); RBC 5.17 10^6/uL (4.36-5.78); RDW 12.4 % (11.8-14.1); RDW-SD 42.3 fL; WBC 7.85 10^3/uL (4.4-10.8)
[2024-12-21 11:57] LABS: Magnesium 2.0 mg/dL (1.8-2.4)
[2024-12-21 12:00] LABS: INR 1.1 (0.9-1.1); PTT Activated 26.5 sec (20.6-30.2); Prothrombin Time 11.0 sec (9.1-11.1)
[2024-12-21 12:02] LABS: ALT 27 U/L (16-63); AST 22 U/L (15-37); Albumin 3.7 g/dL (3.4-5.0); Alkaline Phosphatase 61 U/L (46-116); Anion Gap 8.9 mmol/L (3-11); BUN 13 mg/dL (7-18); Bilirubin, Total 0.9 mg/dL (0.2-1.0); CO2 26.1 mmol/L (21.0-32.0); Calcium 8.9 mg/dL (8.5-10.1); Chloride 103 mmol/L (98-107); Estimated GFR 96.57 (mL/min/1.73m2); Glucose 103 mg/dL (74-106); Potassium 4.2 mmol/L (3.5-5.1); Sodium 138 mmol/L (136-145); Total Protein 7.8 g/dL (6.4-8.2)
== END 2024-12-21 14:07 | disposition home or self-care (01) ==
PROVIDERS: Emergency Provider Emergency Medicine; PCP Student in an Organized Health Care Education/Training Program
DX: K62.5 Hemorrhage of anus and rectum (principal); Z79.1 Long term (current) use of non-steroidal anti-inflammatories (NSAID)
CPT/HCPCS: 99283; 99282; 80053; 86850; 86900; 86901; 83735; 85025; 85610; 85730

== ENCOUNTER 2025-01-13 09:07 | Day surgery (SDC) | payer OTHER, SELFPAY ==
[2025-01-13 09:24] VITALS: BP 125/89; PULSE 72; RESP 14; TEMP 36.4; O2SAT 98
[2025-01-13 10:40] VITALS: BP 133/95; PULSE 55; RESP 14; TEMP 36.6; O2SAT 95
--- NOTE | 2025-01-13 10:48 | W.PM.OP ---
Operative Note Operative Note Refer to Anesthesia Record Procedure Description: PROCEDURES PERFORMED: 1. Anoscopy 2. Internal hemorrhoid banding x3 PREOPERATIVE DIAGNOSIS: Symptomatic grade 2 internal hemorrhoids POSTOPERATIVE DIAGNOSIS: Same SURGEON: Alessandro Hunt MD INDICATION FOR PROCEDURE: The patient is a 64-year-old man on blood thinners who has constant perianal bleeding due to hemorrhoid disease. FINDINGS: Grade 2 internal hemorrhoids present in all three columns. Banding performed x 3 SURVEILLANCE interval/FOLLOW-UP: As needed SPECIMENS: None EBL: Minimal COMPLICATIONS: None Procedure in detail: The patient gave written consent and was in agreement with the indications, the potential risks as well as the benefits of the procedure. I started the banding/anoscopy portion of the procedure. A well?lubricated anoscope was gently introduced. The anal canal was carefully inspected and appeared normal. Internal hemorrhoid disease was readily visible at all 3 columns. Banding was performed in usual fashion. The patient tolerated the procedure well and was taken to the PACU in hemodynamically stable condition. Date of Procedure: 01/13/25
--- NOTE | 2025-01-13 10:49 | W.PM.DSUDISC ---
Date of service: 01/13/25 Discharge Plan Disposition Patient Disposition: Home Condition: Good Discharge Details Attending Provider: Roberto Hunt Primary Care Provider: Christiano Hurley Home Meds and New Rx's Prescriptions: No Action aspirin [Adult Aspirin Regimen] 81 mg tablet,delayed release (DR/EC) 81 mg PO DAILY dapagliflozin propanediol [Farxiga] 10 mg tablet 10 mg PO DAILY acetaminophen 500 mg capsule 1,000 mg PO Q6H PRN amoxicillin 500 mg capsule 2,000 mg PO PRN Rx Instructions: Take 4 capsules by mouth once as needed prior to procedures apixaban 5 mg tablet 5 mg PO BID atorvastatin 40 mg tablet 80 mg PO QHS losartan 25 mg tablet 25 mg PO DAILY psyllium husk [Fiber (psyllium husk)] 0.4 gram capsule 0.4 g PO QID spironolactone 25 mg tablet 25 mg PO DAILY torsemide 10 mg tablet 10 mg PO DAILY metoprolol tartrate 25 mg tablet 25 mg PO BID Rx Instructions: 1/2 tab am and pm. bupropion HCl 150 mg tablet sustained-release 12 hr 150 mg PO DAILY Patient Comments: TAKE 1 TABLET BY MOUTH ONCE DAILY FOR 3 DAYS THEN INCREASE TO TAKE ONE TABLET TWICE DAILY. START ONE WEEK BEFORE YOU QUIT SMOKING. Discharge Instructions Stand Alone Forms: Mary Jo Mendez (RODRICK) Activity:: Activity as Tolerated Diet:: As Tolerated
== END 2025-01-13 11:15 | disposition home or self-care (01) ==
LOC: SUR 09:07
PROVIDERS: PCP Student in an Organized Health Care Education/Training Program; Visit Provider Student in an Organized Health Care Education/Training Program
PROC: 0DJD8ZZ Inspection of Lower Intestinal Tract, Via Natural or Artificial Opening Endoscopic (ICD-10-PCS; CPT 46615; principal; 2025-01-13 10:30)
DX: K64.8 Other hemorrhoids (principal); Z79.01 Long term (current) use of anticoagulants
CPT/HCPCS: 46221

== ENCOUNTER 2025-02-10 15:26 | Outpatient (REF) | payer MEDICARE, BC, SELFPAY ==
[2025-02-10 17:50] LABS: Hemoglobin A1C 5.6 % (<5.7)
[2025-02-10 22:38] LABS: PSA, Screening 0.4 ng/mL (<=4.5)
== END 2025-02-10 15:27 | disposition home or self-care (01) ==
LOC: NCHCN 15:26
PROVIDERS: PCP Student in an Organized Health Care Education/Training Program; Visit Provider Student in an Organized Health Care Education/Training Program
DX: E11.9 Type 2 diabetes mellitus without complications (principal); Z12.5 Encounter for screening for malignant neoplasm of prostate
CPT/HCPCS: 84153; 83036